=== PATIENT | female | born 1990 | race Caucasian/White ===

== ENCOUNTER 2017-04-22 16:36 | Emergency (ER) | payer MEDICAID, SELFPAY ==
[2017-04-22 16:38] VITALS: BP 120/74; PULSE 79; RESP 16; TEMP 36.6; O2SAT 99; BMI 23.5
--- NOTE | 2017-04-22 16:56 | EKG12_ITS ---
Test Reason : CP Blood Pressure : / mmHG Vent. Rate : 064 BPM Atrial Rate : 064 BPM P-R Int : 114 ms QRS Dur : 088 ms QT Int : 392 ms P-R-T Axes : 057 084 065 degrees QTc Int : 404 ms Normal sinus rhythm Normal ECG Confirmed by DISHA GRANT ([id number]), web editor BAM LARA ([id number]) on 04/25/2017 1:17:32 PM Referred By: TAMMY Confirmed By:DISHA GRANT
--- NOTE | 2017-04-22 16:59 | ED.VISSUMM ---
- ER Visit Summary Date of Service: 04/22/17 Chief Complaint: Stress attack History of Present Illness: The patient is a 26 F reports onset of pounding heart, labored breathing, lightheadedness, and tingling around her lips approximately 20 minutes after being in a stressful situation. Patient does not want to further elaborate on this. She also is complaining of cloudy vision. She did drive herself to the emergency room. She reports that she had a couple panic attacks in the past but never required evaluation or medication. She is a past history of Crohn's disease. She does not currently have a primary care physician. Physical Examination: Blood pressure is 120/74, temperature 98, heart rate 79, respiratory rate 16, pulse ox 99% on room air. Head and neck examination is unremarkable. Heart is regular rate and rhythm. Lung sounds are clear. Abdomen is soft and nontender. Neuro exam reveals normal strength and sensation. She is somewhat anxious. Test Results: EKG reveals sinus rhythm at 64 bpm. Normal intervals and no acute ischemia is noted. Emergency Department Course and Treatment: Patient was given Ativan 0.5 mg p.o. She was observed on clinical research monitor with no arrhythmias noted. On repeat evaluation she is resting comfortably and symptoms are improved. She be given a prescription for 4 tabs of Ativan only. She is referred to the counseling center for follow-up. Treatment Plan: [] Disposition: Discharge Impression: Panic attack This note was generated with Lavaboom dictation software. It may contain incorrect words, spelling, and punctuation that were not noted in review of the chart prior to signing ED Disposition - Plan for ED Patient: Chief Complaint: Anxiety Referrals: Care Physician,No Primary [Primary Care Provider] -
--- NOTE | 2017-04-22 17:01 | NURSING ---
NO OLD EKGS
[2017-04-22] MEDS: LORazepam 0.5 MG Tablet PO (17:04)
--- NOTE | 2017-04-22 18:38 | ED.DEP ---
ED Disposition - Plan for ED Patient: Disposition: Home or Assisted Living Chief Complaint: Anxiety Instructions: ED Panic Attack Prescriptions: Lorazepam [Ativan] 0.5 mg PO BID PRN #4 tablet PRN Reason: Anxiety Referrals: Counseling,Center [GROUP OF PHYSICIANS] - As Needed
[2017-04-22 18:43] VITALS: BP 105/70; PULSE 73; RESP 16; O2SAT 98
== END 2017-04-22 18:54 | disposition home or self-care (01) ==
PROVIDERS: Emergency Provider Emergency Medicine
DX: F41.0 Panic disorder [episodic paroxysmal anxiety] (principal); R42 Dizziness and giddiness; K50.90 Crohn's disease, unspecified, without complications; Z72.0 Tobacco use; Z79.899 Other long term (current) drug therapy
CPT/HCPCS: 93005; 99282

== ENCOUNTER 2017-04-24 14:55 | Outpatient (REF) | payer SELFPAY ==
[2017-04-24 17:03] LABS: Pregnancy, Serum, hCG Quali. NEGATIVE Negative (0-9 Nonpreg)
[2017-04-24 17:45] LABS: HIV - WCH Non-Reactive (Nonreactive)
== END 2017-04-24 18:00 | disposition home or self-care (01) ==
LOC: EDREF 14:55
DX: Z04.41 Encounter for examination and observation following alleged adult rape (principal)
CPT/HCPCS: 84703; 86703

== ENCOUNTER 2017-08-30 02:23 | Emergency (ER) | payer SELFPAY ==
[2017-08-30 02:25] VITALS: BP 126/84; PULSE 74; RESP 14; TEMP 36.7; O2SAT 100; BMI 23.8
--- NOTE | 2017-08-30 02:45 | EKG12_ITS ---
Test Reason : CP Blood Pressure : / mmHG Vent. Rate : 073 BPM Atrial Rate : 073 BPM P-R Int : 126 ms QRS Dur : 076 ms QT Int : 392 ms P-R-T Axes : 040 074 048 degrees QTc Int : 431 ms Normal sinus rhythm with sinus arrhythmia Normal ECG Confirmed by RICKY LOPEZ, BEATRIZ ([id number]), film editor BAM LARA ([id number]) on 08/31/2017 2:33:40 PM Referred By: TOMMY Confirmed By:BEATRIZ GARCÍA MD
[2017-08-30 02:52] LABS: Mucous, Urine 0 SEEN /hpf (<or=2+); Red Blood Cells-Urine 0 SEEN /hpf (0-5)
--- NOTE | 2017-08-30 02:54 | ED.DCSUM_ITS ---
- ER Visit Summary Date of Service: 08/30/17 Chief Complaint: Chest and abdominal pain History of Present Illness: The patient is a 27 F who is currently 8 weeks . She also has a history of Crohn's disease. Patient developed chest and abdominal pain after getting off work at 11 PM last night. Family states that she waited for over an hour for a cab to arrive and they never showed, increasing her anxiety. She has not had nausea, vomiting, or diarrhea. She points to the midsternal area of her chest as well as to the epigastric area and describing her areas of pain. Patient is currently 8 weeks . She had positive test and an ultrasound showing intrauterine in a center. She has not yet seen an BOOKKEEPING SERVICE SALES AGENT. She had one prior that was complicated by preeclampsia late in the course. Patient was life flighted and had an emergency at 31 weeks. Physical Examination: Blood pressure is 126/84, temperature 98.0, heart rate 74 , respiratory rate 14, pulse ox 100% on room air. Patient sitting upright in bed. She has her eyes squinted shut tight. Heart is regular rate and rhythm. Lung sounds are clear. Abdomen is soft with tenderness in both epigastric area as well as left lower quadrant. Hypoactive bowel sounds are noted. Neuro exam reveals no focal deficits. Test Results: EKG is sinus at 73 with no sign of acute ischemia. CBC was a white count 11.4 with normal differential. Chemistry studies normal. LFTs and lipase normal. Urinalysis normal. Emergency Department Course and Treatment: Patient was given a dose of morphine , Zofran, Pepcid, and IV fluids. On repeat evaluation she is resting comfortably. Vital signs have remained stable throughout. I did not perform a chest x-ray to avoid the radiation during . Lung sounds are equal bilaterally and her oxygen saturation is normal. I did discuss with the patient I think the majority of her symptoms are secondary to her anxiety. She had been on Ativan in the past but is not on it currently. I recommended follow-up with the counseling center to help with her anxiety throughout the . Treatment Plan: [] Disposition: Discharge Impression: 1. Atypical chest pain 2. Anxiety This note was generated with DossierViewation software. It may contain incorrect words, spelling, and punctuation that were not noted in review of the chart prior to signing ED Disposition - Plan for ED Patient: Chief Complaint: Chest Pain Referrals: DANYEL Tatum [PHYSICIAN AIRWAY TRAFFIC CONTROLLER] -
[2017-08-30 02:55] LABS: Absolute Lymphocyte Count 3.21 X10^3/ul (0.83-4.51); Absolute Neutrophil Count 7.2 X10^3/uL (2.0-7.7); Basophil# 0.03 X10^3/uL; Basophil% 0.3 % (0-1); Color, Urine Yellow (Yellow); Eosinophil# 0.18 X10^3/uL; Eosinophils% 1.6 % (0-5); Glucose, Dipstick Normal (Normal); Hematocrit 39.9 % (37-47); Hemoglobin 14.1 g/dl (12.0-15.0); Ketone-Dipstick Negative (Negative); Leukocyte Esterase-Dipstick Negative /ul (Negative); Lymphocyte # 3.21 X10^3/ul (4.0); Lymphocyte % 28.3 % (19-41); Mean Corp Hgb Conc 35.3 g/gl (32-36); Mean Corpuscular Hgb 30.2 pg (27.0-32.0); Mean Corpuscular Volume 85.4 fL (81-99); Mean Platelet Vol. 9.2 fl (6.2-12.0); Monocyte# 0.71 X10^3/uL; Monocyte% 6.3 % (0-10); Neutrophil # 7.18 X10^3/uL (2.7-7.7); Neutrophil % 63.1 % (47-70); Nitrite-Dipstick Negative (Negative); Occult Blood-Urine Negative /ul (Negative); Platelet Count 271 K/mm3 (150-450); Protein-Dipstick Negative (Negative); RBC Distribution Width CV 13.2 % (11.6-14.6); RBC Distribution Width SD 40.9 fl (35.1-43.9); Red Blood Count 4.67 M/mm3 (4.2-5.4); Urine Bilirubin Dipstick Negative (Negative); Urine Clarity Sl. Cloudy (Clear); Urine Urobilinogen Normal (Normal); White Blood Count 11.4 K/mm3 (4.4-11.0)
[2017-08-30] MEDS: 0.9% Normal Saline 1,000 ML 150 ML IV (02:55)
[2017-08-30] MEDS: Ondansetron 4 MG/2 ML Vial IV (02:55)
[2017-08-30] MEDS: Morphine 4 MG/ML Syringe IV (02:55)
[2017-08-30 02:59] LABS: POSITIVE COUNT NO; POSITIVE DIFFERENTIAL NO; POSITIVE MORPHOLOGY NO
[2017-08-30] MEDS: Famotidine 20mg IV Push Syringe Q24 300 MG IVP (02:59)
[2017-08-30 03:08] LABS: Bacteria RARE /hpf (None Seen); Squamous Epithelial Cells - UA 0-5 SEEN /hpf (5-10); White Blood Cells 0-5 SEEN /hpf (0-5)
[2017-08-30 03:09] LABS: AST(SGOT) 22 U/L (15-37); Alanine Aminotransfer ALT/SGPT 23 U/L (13-56); Albumin, Serum 3.6 g/dL (3.2-5.0); Alkaline Phosphatase 43 U/L (45-117); Anion Gap 9 (5-15); BUN 10 mg/dL (7-18); BUN/Creat Ratio 16.6 RATIO (10-20); Bilirubin, Direct 0.07 mg/dL (0.00-0.30); Calcium,Total 9.1 mg/dL (8.5-10.1); Chloride 108 mmol/L (98-107); EST Glomerular Filtration Rate 128 mL/min (>60); Est Glom Filt Rate - Afr Amer 154 mL/min (>60); Estimated Creatinine Clearance 102.06 ml/min; Globulin 3.5 g/dL (2.2-4.2); Glucose 75 mg/dL (74-106); Lipase 121 U/L (73-393); Potassium 3.6 mmol/L (3.5-5.1); Protein, Total 7.1 g/dL (6.4-8.2); Sodium Level 141 mmol/L (136-145)
--- NOTE | 2017-08-30 03:42 | ED.DEP ---
ED Disposition - Plan for ED Patient: Disposition: Home or Assisted Living Chief Complaint: Chest Pain Instructions: ED Chest Pain Atypical Unkn Cause, ED Stress React Referrals: Nitza Rader MD [STAFF PHYSICIAN] - Adele Mitchell MD [STAFF PHYSICIAN] - Brittany Bhardwaj MD [STAFF PHYSICIAN] -
[2017-08-30 03:44] VITALS: BP 105/65; PULSE 62; RESP 17; O2SAT 95
== END 2017-08-30 03:50 | disposition home or self-care (01) ==
PROVIDERS: Emergency Provider Emergency Medicine
DX: O26.891 Other specified pregnancy related conditions, first trimester (principal); R07.89 Other chest pain; O99.341 Other mental disorders complicating pregnancy, first trimester; F41.9 Anxiety disorder, unspecified; O99.331 Smoking (tobacco) complicating pregnancy, first trimester; O99.611 Diseases of the digestive system complicating pregnancy, first trimester; K50.90 Crohn's disease, unspecified, without complications; Z79.899 Other long term (current) drug therapy; Z3A.08 8 weeks gestation of pregnancy
CPT/HCPCS: 80048; 80076; 81001; 83690; 85025; 93005; 96365; 96375; 99284; J7030; A4216; J2405; J3490

== ENCOUNTER 2017-09-20 20:23 | Emergency (ER) | payer MEDICAID, SELFPAY ==
[2017-09-20 20:25] VITALS: BP 112/65; PULSE 99; RESP 18; TEMP 37.2; O2SAT 97; BMI 21.4
[2017-09-20] MEDS: Acetaminophen 325 MG Tablet 650 MG PO (21:01)
[2017-09-20] MEDS: 0.9% Normal Saline 1,000 ML 150 ML IV (21:01)
[2017-09-20] MEDS: Morphine 2 MG/ML Syringe IV (21:02)
[2017-09-20] MEDS: Ondansetron 4 MG/2 ML Vial IV (21:07)
[2017-09-20 21:08] LABS: Absolute Lymphocyte Count 3.03 X10^3/ul (0.83-4.51); Absolute Neutrophil Count 7.5 X10^3/uL (2.0-7.7); Basophil# 0.01 X10^3/uL; Basophil% 0.1 % (0-1); Eosinophil# 0.11 X10^3/uL; Hematocrit 37.6 % (37-47); Hemoglobin 13.1 g/dl (12.0-15.0); Lymphocyte # 3.03 X10^3/ul (4.0); Lymphocyte % 27.2 % (19-41); Mean Corp Hgb Conc 34.8 g/gl (32-36); Mean Corpuscular Hgb 29.3 pg (27.0-32.0); Mean Corpuscular Volume 84.1 fL (81-99); Mean Platelet Vol. 9.1 fl (6.2-12.0); Monocyte# 0.46 X10^3/uL; Monocyte% 4.1 % (0-10); Neutrophil # 7.51 X10^3/uL (2.7-7.7); Neutrophil % 67.3 % (47-70); Platelet Count 218 K/mm3 (150-450); RBC Distribution Width SD 39.9 fl (35.1-43.9); Red Blood Count 4.47 M/mm3 (4.2-5.4); White Blood Count 11.2 K/mm3 (4.4-11.0)
[2017-09-20 21:10] LABS: POSITIVE COUNT NO; POSITIVE DIFFERENTIAL NO; POSITIVE MORPHOLOGY NO
[2017-09-20 21:11] LABS: Mucous, Urine 0 SEEN /hpf (<or=2+)
[2017-09-20 21:24] LABS: AST(SGOT) 23 U/L (15-37); Alanine Aminotransfer ALT/SGPT 24 U/L (13-56); Albumin, Serum 3.5 g/dL (3.2-5.0); Alkaline Phosphatase 41 U/L (45-117); Anion Gap 8 (5-15); BUN 7 mg/dL (7-18); BUN/Creat Ratio 11.7 RATIO (10-20); Bilirubin, Direct 0.07 mg/dL (0.00-0.30); Calcium,Total 8.8 mg/dL (8.5-10.1); Chloride 106 mmol/L (98-107); EST Glomerular Filtration Rate 129 mL/min (>60); Est Glom Filt Rate - Afr Amer 156 mL/min (>60); Estimated Creatinine Clearance 102.06 ml/min; Globulin 3.4 g/dL (2.2-4.2); Glucose 84 mg/dL (74-106); Lipase 113 U/L (73-393); Potassium 3.9 mmol/L (3.5-5.1); Protein, Total 6.9 g/dL (6.4-8.2); Sodium Level 137 mmol/L (136-145)
[2017-09-20 21:26] LABS: Color, Urine Yellow (Yellow); Glucose, Dipstick Normal (Normal); Ketone-Dipstick Negative (Negative); Leukocyte Esterase-Dipstick 100 /ul (Negative); Nitrite-Dipstick Negative (Negative); Occult Blood-Urine 25 /ul (Negative); Protein-Dipstick Negative (Negative); Specific Gravity, Urine 1.015 (1.002-1.030); Urine Bilirubin Dipstick Negative (Negative); Urine Clarity Clear (Clear); Urine Urobilinogen Normal (Normal); Urine pH 6.5 (5.0 - 8.0)
[2017-09-20 21:29] LABS: Red Blood Cells-Urine 0-5 SEEN /hpf (0-5); Squamous Epithelial Cells - UA 5-10 SEEN /hpf (5-10); White Blood Cells 5-10 SEEN /hpf (0-5)
[2017-09-20 21:30] LABS: Bacteria 3+ /hpf (None Seen)
--- NOTE | 2017-09-20 21:37 | CT_ITS ---
STUDY: CT BRAIN WITH AND WITHOUT CONTRAST REASON FOR EXAM: Female, 27 years old. . Headache. RADIATION DOSAGE (If Supplied By Facility): CTDIvol = ( 60.81 ) mGy, DLP = ( 1997.33 ) mGycm TECHNIQUE: Transaxial CT imaging of the brain was performed pre and post contrast administration. The examination was performed with intravenous administration of 75 ml of Isovue 300 contrast material. Individualized dose optimization techniques were used for this CT. COMPARISON: None. FINDINGS: Normal soft tissue structures. Normal calvarium. Normal size ventricles and extra-axial spaces for the patient's age. Normal white matter tracts of the cerebral hemispheres. Normal basal ganglia and thalami. Normal brainstem. Normal cerebellum. There is no intracranial hemorrhage. There are no findings of an acute ischemic infarction. Normal visualized paranasal sinuses There is no mass or abnormal enhancement. There is 0.4 x 0.3 cm diminished enhancement region in the left transverse sinus with possible nonocclusive thrombus, series [address]/Brain/Head W/WO Contrast IMPRESSION: Dural venous sinus thrombosis is suggested on the left. No hemorrhage or focal infarct is seen. N.B. : The above information has been verbally conveyed by Massimo Sutton MD to Henrietta Samayoa on 09/20/2017 22:26:35 (ET). Electronically Signed: Massimo Sutton MD at 22:23 EDT , Service support ,
[2017-09-20] MEDS: Ceftriaxone 1 GM/50 ML BAG IV (22:06)
[2017-09-20] MEDS: Morphine 4 MG/ML Syringe IV (22:08)
--- NOTE | 2017-09-20 23:17 | ED.VISSUMM ---
- ER Visit Summary Date of Service: 09/20/17 Chief Complaint: Headache, dizzy, abdominal pain History of Present Illness: The patient is a 27 F who is currently 9-10 weeks . She complains of nausea and vomiting. She does complain of left frontal headache and states she had some vision changes earlier today that are now resolved. She is also complaining of left-sided abdominal pain and left back pain. She denies dysuria. She denies fever. Past history significant for headaches, Crohn's disease, and preeclampsia with her previous . Her WORKPLACE TRAINER AND ASSESSOR is with in [place]. Physical Examination: Vital signs are unremarkable. Patient's lying in a darkened room. She is in no acute distress. Head and neck examination is unremarkable. There is no meningismus. Heart is regular rate and rhythm. Lung sounds are clear. Abdomen is soft with tenderness in the left abdomen. No guarding or rebound noted. Hypoactive bowel sounds are present. She has mild left CVA tenderness. No skin rash or lesions are noted. Neuro exam reveals no focal deficits. Test Results: CBC was a white count 11.2 with normal differential. Chemistry studies normal. LFTs and lipase are normal. Urinalysis shows 5-10 white cells and 5-10 epithelial cells, however she does have 3+ bacteria. Urine culture was sent. Emergency Department Course and Treatment: Patient was given morphine, Tylenol, Zofran, and IV fluids. Patient was sent for CT of the head with IV contrast. I received a phone call from the radiologist with concern for possible dural venous thrombosis on the left. He describes a 3-4 mm filling defect. There is no evidence of hemorrhage or infarct. Test results were discussed with Dr. Paredes, on-call for the patient's WORKPLACE TRAINER AND ASSESSOR. He advises that patient needs to be in a facility with neurology as well as maternal- medicine, and he does not have that available at [place]. After speaking with patient she would prefer to stay with and go to their main campus. I spoke with Dr. Reid, WORKPLACE TRAINER AND ASSESSOR, and patient has been accepted in transfer. She will speak with their maternal medicine doctors regarding anticoagulant and call me back if I am to start something here. Treatment Plan: [] Disposition: Transfer Impression: 1. First trimester 2. Dural venous thrombosis This note was generated with Getableation software. It may contain incorrect words, spelling, and punctuation that were not noted in review of the chart prior to signing ED Disposition - Plan for ED Patient: Chief Complaint: General Illness Referrals: Care Physician,No Primary [Primary Care Provider] -
[2017-09-20 23:18] VITALS: BP 98/59; PULSE 77; RESP 18; O2SAT 98
--- NOTE | 2017-09-20 23:20 | ED.DCSUM_ITS ---
- ER Visit Summary Date of Service: 09/20/17 Chief Complaint: Headache, dizzy, abdominal pain History of Present Illness: The patient is a 27 F who is currently 9-10 weeks . She complains of nausea and vomiting. She does complain of left frontal headache and states she had some vision changes earlier today that are now resolved. She is also complaining of left-sided abdominal pain and left back pain. She denies dysuria. She denies fever. Past history significant for headaches, Crohn's disease, and preeclampsia with her previous . Her LAB CLERK is with in [place]. Physical Examination: Vital signs are unremarkable. Patient's lying in a darkened room. She is in no acute distress. Head and neck examination is unremarkable. There is no meningismus. Heart is regular rate and rhythm. Lung sounds are clear. Abdomen is soft with tenderness in the left abdomen. No guarding or rebound noted. Hypoactive bowel sounds are present. She has mild left CVA tenderness. No skin rash or lesions are noted. Neuro exam reveals no focal deficits. Test Results: CBC was a white count 11.2 with normal differential. Chemistry studies normal. LFTs and lipase are normal. Urinalysis shows 5-10 white cells and 5-10 epithelial cells, however she does have 3+ bacteria. Urine culture was sent. Emergency Department Course and Treatment: Patient was given morphine, Tylenol, Zofran, and IV fluids. Patient was sent for CT of the head with IV contrast. I received a phone call from the radiologist with concern for possible dural venous thrombosis on the left. He describes a 3-4 mm filling defect. There is no evidence of hemorrhage or infarct. Test results were discussed with Dr. Paredes, on-call for the patient's LAB CLERK. He advises that patient needs to be in a facility with neurology as well as maternal- medicine, and he does not have that available at [place]. After speaking with patient she would prefer to stay with and go to their main campus. I spoke with Dr. Reid, LAB CLERK, and patient has been accepted in transfer. She will speak with their maternal medicine doctors regarding anticoagulant and call me back if I am to start something here. Treatment Plan: [] Disposition: Transfer Impression: 1. First trimester 2. Dural venous thrombosis This note was generated with Billabong Internationalation software. It may contain incorrect words, spelling, and punctuation that were not noted in review of the chart prior to signing ED Disposition - Plan for ED Patient: Chief Complaint: General Illness Referrals: Care Physician,No Primary [Primary Care Provider] -
[2017-09-21 00:03] VITALS: PULSE 66; RESP 19; O2SAT 96
--- NOTE | 2017-09-21 00:26 | ED.RN ---
dr zamarripa aware of bp 82/51, pt asymptomatic.iv fluid opened w/o.
[2017-09-21 00:53] VITALS: BP 100/60; PULSE 76; RESP 20; TEMP 36.7; O2SAT 98
== END 2017-09-21 00:57 | disposition short-term general hospital (02) ==
PROVIDERS: Emergency Provider Emergency Medicine
DX: O22.5 Cerebral venous thrombosis in pregnancy (principal); Z3A.09 9 weeks gestation of pregnancy; O99.611 Diseases of the digestive system complicating pregnancy, first trimester; Z79.899 Other long term (current) drug therapy
CPT/HCPCS: 70470; 80048; 80076; 81001; 83690; 85025; 96361; 96365; 96375; 96376; 99285; J7030; J7040; Q9967; A4216; J2405

== ENCOUNTER 2017-09-29 04:09 | Emergency (ER) | payer MEDICAID, SELFPAY ==
[2017-09-29 04:11] VITALS: BP 106/63; PULSE 80; RESP 18; TEMP 36.7; O2SAT 95; BMI 24.6
--- NOTE | 2017-09-29 04:40 | US_ITS ---
STUDY: FIRST TRIMESTER OBSTETRICAL ULTRASOUND REASON FOR EXAM: Female, 27 years old. Bleeding. LMP: July 27, 2017. TECHNIQUE: Transabdominal and Transvaginal PRIOR ULTRASOUND: None. FINDINGS: There is visualization of a single gestational sac in a normal intrauterine position. There is no demonstrated yolk sac. There is visualization of the placenta. And lies along the anterior wall of the uterus. There is visualization of a live embryo. The crown-rump length (CRL) measures 6.7 cm, indicating an estimated gestational age (EGA) of 13 weeks, 0 days. There is demonstrated cardiac activity with a heart rate of 144 bpm. The estimated gestation age (EGA) by LMP is 13 weeks, 1 days. The estimated date of delivery (LUCILA) by LMP is April 05, 2017. The estimated gestation age (EGA) by US is 13 weeks, 0 days. The estimated date of delivery (LUCILA) by US is April 06, 2017. The uterus measures 12.1 cm x 8.8 cm x 7.5 cm. There is no demonstrated uterine fibroid. The cervix is closed. The right ovary is not visualized. The left ovary measures 2.9 cm x 2.3 cm x 1.2 cm. There is no left ovarian cyst. There is no visualized left adnexal mass or complex lesion. There is no fluid in the cul de sac. US/Transvaginal w/Preg US IMPRESSION: Single live intrauterine gestation with mean gestational age of 13 weeks. Electronically Signed: Tone Serrano MD at 8:37 EDT Tel [phone], Service support ,
--- NOTE | 2017-09-29 04:43 | ED.RN ---
waiting for ultrasound to come in am.pt and aware,they will try to sleep while waiting.
--- NOTE | 2017-09-29 04:49 | ED.VISSUMM ---
- ER Visit Summary Date of Service: 09/29/17 Chief Complaint: [] Vaginal bleeding in first trimester History of Present Illness: The patient is a 27 F [] patient stated she started having some vaginal bleeding 2 hours ago. She noticed some clots. Similar to her menses. She is 12 weeks . Her last ultrasound was normal week ago. Her blood type is a positive. This is her second . She has never had anything like this before. She does have history of Crohn's disease. She denies any abdominal pain Physical Examination: [] Vital signs reviewed General: Well-nourished well-developed Head: Normocephalic atraumatic Eyes: Pupils equal round and reactive to light extraocular movements intact ENT: TMs clear no hemotympanum no trauma Neck: Nontender full range of motion Cardiovascular: Regular rate rhythm no murmurs normal S1-S2 Respiratory: No distress clear to auscultation bilaterally chest nontender Abdomen: Soft nontender nondistended normal bowel sounds no masses Pelvic: Positive mild bleeding from the office that is closed. Very small clots. No tissue Back: Nontender no CVA tenderness Extremities: Nontender active range of motion ?4 extremities no trauma Skin: Normal color no trauma Neuro alert oriented cranial nerves II through XII intact normal strength sensation reflexes Test Results: [] Emergency Department Course and Treatment: [] Remained stable. It appears she is having a threatened . We will do an ultrasound. This will be signed out to the morning physician. At this time I do not feel she needs lab work. She will follow-up with her METHODS STUDY ANALYST Treatment Plan: [] Disposition: [] Impression: [] Vaginal bleeding in This note was generated with [employer] software. It may contain incorrect words, spelling, and punctuation that were not noted in review of the chart prior to signing <Scott Ham - Last Filed: 09/29/17 04:49> - ER Visit Summary Date of Service: 09/29/17 Chief Complaint: [] History of Present Illness: The patient is a 27 F [] Physical Examination: [] Test Results: [] Emergency Department Course and Treatment: [] Treatment Plan: [] Disposition: [] Impression: [] This note was generated with [employer] software. It may contain incorrect words, spelling, and punctuation that were not noted in review of the chart prior to signing This is Dr. Carroll dictating an addendum I was asked to see the patient by Dr ham to review her ultrasound report,, the ultrasound report shows a single live IUP 13 weeks please see that report, for further details, explained to the patient concept of threatened AB vaginal bleeding etc. need for her to follow with her communication electronic technician in the next few days return for change in symptoms and she agrees Final diagnosis vaginal bleeding 13 weeks, threatened AB <Myra Carroll - Last Filed: 09/29/17 09:00> ED Disposition <Scott Ham - Last Filed: 09/29/17 04:49> <Myra Carroll - Last Filed: 09/29/17 09:00> - Plan for ED Patient: Chief Complaint: Vag Bld, Preg Referrals: Care Physician,No Primary [Primary Care Provider] -
[2017-09-29 06:44] VITALS: RESP 16
[2017-09-29 08:00] VITALS: RESP 14
--- NOTE | 2017-09-29 09:00 | ED.DEP ---
ED Disposition - Plan for ED Patient: Chief Complaint: Vag Bld, Preg Instructions: ED Miscarriage Poss Referrals: Care Physician,No Primary [Primary Care Provider] - Additional Instructions: Follow-up with her food product inspector next few days return for change in symptoms no sex or heavy exertional activity
--- NOTE | 2017-09-29 09:27 | DCINST.ED_ITS ---
ED Disposition - Plan for ED Patient: Chief Complaint: Vag Bld, Preg Instructions: ED Miscarriage Poss Referrals: Care Physician,No Primary [Primary Care Provider] - Additional Instructions: Follow-up with her insurance claims supervisor next few days return for change in symptoms no sex or heavy exertional activity
== END 2017-09-29 09:45 | disposition home or self-care (01) ==
LOC: ED 04:54
PROVIDERS: Emergency Provider Emergency Medicine
DX: O20.0 Threatened abortion (principal); O99.611 Diseases of the digestive system complicating pregnancy, first trimester; K50.90 Crohn's disease, unspecified, without complications; O99.331 Smoking (tobacco) complicating pregnancy, first trimester; Z79.899 Other long term (current) drug therapy; Z3A.12 12 weeks gestation of pregnancy
CPT/HCPCS: 76817; 99282

== ENCOUNTER → 2018-01-03 07:44 | Outpatient (CLI) | payer MEDICAID, SELFPAY ==
[2018-01-03 10:15] LABS: Glucose Challenge Gest 1H 50g 125 mg/dL (70-140)
== END ==
DX: O09.899 Supervision of other high risk pregnancies, unspecified trimester (principal); Z3A.23 23 weeks gestation of pregnancy
CPT/HCPCS: 36415; 82950

== ENCOUNTER 2018-01-15 14:10 | Outpatient (CLI) | payer MEDICAID, SELFPAY ==
[2018-01-15 14:59] VITALS: BMI 28.5
[2018-01-15 15:26] LABS: Color, Urine Yellow (Yellow); Glucose, Dipstick Normal (Normal); Ketone-Dipstick Negative (Negative); Leukocyte Esterase-Dipstick 500 /ul (Negative); Nitrite-Dipstick Negative (Negative); Occult Blood-Urine 50 /ul (Negative); Protein-Dipstick Negative (Negative); Specific Gravity, Urine 1.005 (1.002-1.030); Urine Bilirubin Dipstick Negative (Negative); Urine Clarity Sl. Cloudy (Clear); Urine Urobilinogen Normal (Normal)
[2018-01-15 15:49] LABS: Fetal Fibronectin Negative
--- NOTE | 2018-01-26 07:49 | OB.TRI.HP_ITS ---
History of Present Illness Date of Service: 01/15/18 Was patient seen by the physician?: No Reason For Visit: CRAMPING Date of Service: 01/15/18 Final LUCILA: 04/05/18 Gestational age: 28 Weeks and 4 Days History of Present Illness: 28+ week intrauterine with some left lower quadrant pain and cramping. Started a few hours ago. care otherwise been uneventful. Allergies No Known Allergies Allergy (Verified 09/29/17 04:14) Laboratory Studies: Laboratory Tests 01/15/18 01/15/18 Range/Units 15:15 15:00 Urine Color Yellow (Yellow) Urine Clarity Sl. Cloudy (Clear) Urine pH 7.0 (5.0 - 8.0) Ur Specific [place] 1.005 (1.002-1.030) Urine Protein Negative (Negative) mg/dl Urine Glucose (UA) Normal (Normal) mg/dl Urine Ketones Negative (Negative) mg/dl Urine Occult Blood 50 H (Negative) /ul Urine Nitrite Negative (Negative) Urine Bilirubin Negative (Negative) mg/dL Urine Urobilinogen Normal (Normal) mg/dl Ur Leukocyte Esterase 500 H (Negative) /ul Fibronectin Negative NST - FHR Rate Baby A NST Reactive:: Yes FHR Category:: Category I Impression/Plan 28+ week intrauterine with transient contractions and likely left round ligament pain. Urine analysis was negative. fibronectin was negative. Released to home with Tylenol and follow-up if discomfort worsens. Nonstress test was reactive.
== END 2018-01-15 16:15 | disposition home or self-care (01) ==
LOC: WPOUT 14:37 → WP 14:38
PROVIDERS: Referring Provider Obstetrics & Gynecology; Visit Provider Obstetrics & Gynecology
DX: O26.893 Other specified pregnancy related conditions, third trimester (principal); R10.30 Lower abdominal pain, unspecified; Z3A.28 28 weeks gestation of pregnancy
CPT/HCPCS: 59025; 59050; 81002; 82731; 87086; 87088; 99218; G0378

== ENCOUNTER → 2018-01-27 11:29 | Outpatient (CLI) | payer MEDICAID, SELFPAY ==
[2018-01-15 14:59] VITALS: BMI 28.5
[2018-01-27 12:01] LABS: Absolute Lymphocyte Count 1.94 X10^3/ul (0.83-4.51); Basophil# 0.01 X10^3/uL; Basophil% 0.1 % (0-1); Eosinophil# 0.09 X10^3/uL; Eosinophils% 0.9 % (0-5); Hematocrit 33.4 % (37-47); Hemoglobin 11.4 g/dl (12.0-15.0); Lymphocyte # 1.94 X10^3/ul (4.0); Lymphocyte % 20.4 % (19-41); Mean Corp Hgb Conc 34.1 g/gl (32-36); Mean Corpuscular Hgb 30.1 pg (27.0-32.0); Mean Corpuscular Volume 88.1 fL (81-99); Mean Platelet Vol. 8.6 fl (6.2-12.0); Monocyte# 0.41 X10^3/uL; Monocyte% 4.3 % (0-10); Neutrophil # 7.02 X10^3/uL (2.7-7.7); Neutrophil % 73.8 % (47-70); Platelet Count 233 K/mm3 (150-450); RBC Distribution Width CV 13.5 % (11.6-14.6); Red Blood Count 3.79 M/mm3 (4.2-5.4); White Blood Count 9.5 K/mm3 (4.4-11.0)
[2018-01-27 12:02] LABS: Differential Indicated SCAN CRITERIA MET; POSITIVE COUNT NO; POSITIVE DIFFERENTIAL NO; POSITIVE MORPHOLOGY YES
[2018-01-27 12:20] LABS: Atypical Lymphocyte 1+ %
--- OUTSIDE RECORDS SUMMARY | 2018-03-23 19:54 | XMS RPT_ITS ---
:1990 Author Organization OHIP Support Name Relationship Address Phone KELBY GUY Unavailable [address] [place] [address] UE Unavailable Unavailable Unavailable ALEXOli KELBY Unavailable [address] + [address] [place] [address] UE Unavailable Unavailable Unavailable MALENA COLBYJOJO Unavailable [address] + [address] [place] [address] UE Unavailable Unavailable Unavailable AARON, VIOLETTE Unavailable Unavailable + AARON, VIOLETTE Unavailable Unavailable + AARON, VIOLETTE Unavailable Unavailable + AARON, VIOLETTE Unavailable Unavailable + KELBY GUY Unavailable [address] + [place] [address] UE Unavailable Unavailable Unavailable AARON, VIOLETTE Unavailable Unavailable + AARON, VIOLETTE Unavailable Unavailable + KELBY GUY Unavailable [address] + [place] [address] UE Unavailable Unavailable Unavailable MARY Unavailable [address] + [address] [place] [address] KELBY GUY Unavailable [address] + [place] [address] KELBY GUY Unavailable [address] + [place] [address] SPENO Unavailable [address] [phone] [place] [address] MALENA EDWARD Unavailable [address] + [place] [address] SPENO Unavailable [address] [phone] [place] [address] MALENA EDWARD Unavailable [address] + [place] [address] SPENO Unavailable [address] [phone] [place] [address] Care Team Providers Name Role Phone SAM, CLODAGH R Admitting Unavailable SAM, CLODAGH R Referring Unavailable UNKNOWN, PCP Primary Care Unavailable Hadley, Dr. Seymour Doran Attending Unavailable LULY BARFIELD Attending Unavailable UNKNOWN, PCP Primary Care Unavailable Drew, Dr. Elzbieta Dunbar Attending Unavailable Zia, Dr. José Antonio Hale Referring Unavailable UNKNOWN, PCP Primary Care Unavailable UNKNOWN, PCP Primary Care Unavailable UNKNOWN, PCP Primary Care Unavailable UNKNOWN, PCP Primary Care Unavailable Primay Care Physicia, No Primary Care Unavailable Henrietta Samayoa Attending Unavailable SANE Attending Unavailable SANE Primary Care Unavailable Adele Blanco Attending Unavailable SANE Referring Unavailable SANE Primary Care Unavailable Henrietta Samayoa Attending Unavailable Primay Care Physicia, No Primary Care Unavailable Primay Care Physicia, No Primary Care Unavailable Henrietta Samayoa Attending Unavailable Primay Care Physicia, No Primary Care Unavailable Scott Ham Attending Unavailable FLORENCE CASIANO Attending Unavailable Primay Care Physicia, No Primary Care Unavailable FLORENCE CASIANO Referring Unavailable Kendall Nieto Attending Unavailable Kendall Nieto Referring Unavailable Primay Care Physicia, No Primary Care Unavailable FLORENCE CASIANO Attending Unavailable FLORENCE CASIANO Referring Unavailable Primay Care Physicia, No Primary Care Unavailable Oberhauser, Mary Arnoldo Attending Unavailable Oberhauser, Mary L Admitting Unavailable Oberhauser, Mary L Primary Care Unavailable Junior, Adriana Consulting Unavailable Junior, Adriana Attending Unavailable Oberhauser, Mary L Primary Care Unavailable Junior, Adriana Admitting Unavailable Junior, Adriana Attending Unavailable Oberhauser, Mary L Primary Care Unavailable Junior, Adriana Attending Unavailable Oberhauser, Mary L Primary Care Unavailable Junior, Adriana Attending Unavailable Oberhauser, Mary L Primary Care Unavailable Junior, Adriana Admitting Unavailable Junior, Adriana Attending Unavailable Oberhauser, Mary L Primary Care Unavailable Nash, José Antonio A Attending Unavailable Oberhauser, Mary L Primary Care Unavailable Zia, José Antonio A Admitting Unavailable Nash, José Antonio A Attending Unavailable Oberhauser, Mary L Primary Care Unavailable Nash, José Antonio A Attending Unavailable Oberhauser, Mary L Primary Care Unavailable Zia, José Antonio A Attending Unavailable Oberhauser, Mary L Primary Care Unavailable Drew, Elzbieta K Admitting Unavailable Drew, Elzbieta K Attending Unavailable Oberhauser, Mary L Primary Care Unavailable Nash, José Antonio A Admitting Unavailable Nash, José Antonio A Attending Unavailable Oberhauser, Mary L Primary Care Unavailable Nash, José Antonio A Attending Unavailable Oberhauser, Mary L Primary Care Unavailable Nash, José Antonio A Admitting Unavailable Zia, José Antonio A Attending Unavailable Oberhauser, Mary L Primary Care Unavailable Nash, José Antonio A Admitting Unavailable Nash, José Antonio A Attending Unavailable Oberhauser, Mary L Primary Care Unavailable Cruzito Paredes Attending Unavailable Oberhauser, Mary L Primary Care Unavailable Nash, José Antonio A Attending Unavailable Oberhauser, Mary L Primary Care Unavailable PROBLEMS PROBLEMS DATE TYPE CONDITION / CODE ATTENDING STATUS SOURCE 10/09/2017 Final diagnosis Crohn's disease, Dr. Drew [facility] (discharge) unspecified, [facility] without Repository complications / K50.90(ICD-10) 10/09/2017 Final diagnosis Personal history of Dr. Drew [facility] [employer] (discharge) dis of the nervous [facility] sys and sense Repository organs / Z86.69(ICD-10) 10/09/2017 Final diagnosis Personal history of Dr. Drew [facility] [employer] (discharge) comp of preg, [facility] chldbrth and the Repository puerp / Z87.59(ICD-10) 10/09/2017 Final diagnosis Diseases of the Dr. Drew [facility] [employer] (discharge) dgstv sys comp [facility] , unsp Repository trimester / O99.619(ICD-10) 10/09/[address] Amy Russell (discharge) dependence, [facility] unspecified, Repository uncomplicated / F17.200(ICD-10) 10/09/2017 Final diagnosis [address] Drew Active Disha (discharge) of / [facility] Z3A.13(ICD-10) Repository 09/22/2017 Admitting Diseases of the [place]ley, Dr. Reyes [facility] diagnosis nervous sys [facility] , first Repository trimester / O99.351(ICD-10) 09/22/2017 Final diagnosis Diseases of the Hadley, Dr. Aym Gauthier (discharge) nervous s [facility] , first Repository trimester / O99.351(ICD-10) 09/22/2017 Final diagnosis Migraine, unsp, not Dr. Amy Butcher (discharge) intractable, [facility] without status Repository migrainosus / G43.909(ICD-10) 09/22/2017 Final diagnosis [address] Hadley Active Disha (discharge) of / [facility] Z3A.12(ICD-10) Repository 09/22/2017 Final diagnosis Smoking (tobacco) Dr. Amy Butcher (discharge) complicating [facility] , first Repository trimester / O99.331(ICD-10) 09/22/[address] Amy Butcher (discharge) dependence, [facility] cigarettes, Repository uncomplicated / F17.210(ICD-10) 09/22/2017 Final diagnosis Diseases of the Dr. Amy Butcher (discharge) circ sys [facility] , first Repository trimester / O99.411(ICD-10) 09/22/2017 Final diagnosis Hypotension, Dr. Amy Butcher (discharge) unspecified / [facility] I95.9(ICD-10) Repository 09/22/2017 Final diagnosis Diseases of the Hadley, Dr. Amy Gauthier (discharge) dgstv sys [facility] , first Repository trimester / O99.611(ICD-10) 04/22/2017 Unknown F41.0 - Panic Henrietta Samayoa Active [place] disorder [episodic Community paroxysmal anxiety] Hospital / F41.0(ICD-10) Repository PROCEDURES PROCEDURES No Procedure Records FoundRESULTS RESULTS CBC W/DIFF, AUTOMATED Collected: 01/27/2018 Status: F Source: [place] 11:[place] [facility] [place] TYPE CODE TESTS RESULT OUT OF RANGE REFERENCE UNITS LAB L100.1000 4.4-11.0 K/mm3 Normal WBC 9.5 LAB L100.1200 4.2-5.4 M/mm3 Low RBC 3.79 LAB L100.1300 12.0-15.0 g/dl Low HGB 11.4 LAB L100.1400 37-47 % Low HCT 33.4 LAB L100.1500 81-99 fL Normal MCV 88.1 LAB L100.1600 27.0-32.0 pg Normal MCH 30.1 LAB L100.1700 32-36 g/gl Normal MCHC 34.1 LAB L100.1810 11.6-14.6 % Normal RDW CV 13.5 LAB L100.1820 35.1-43.9 fl High RDW SD 44.0 LAB L100.1900 150-450 K/mm3 Normal PLT 233 LAB L100.2000 6.2-12.0 fl Normal MPV 8.6 LAB L100.2100 47-70 % High NEUT% 73.8 LAB L100.2200 19-41 % Normal LY% 20.4 LAB L100.2300 0-10 % Normal MONO% 4.3 LAB L100.2400 0-5 % Normal EO% 0.9 LAB L100.2500 0-1 % Normal BASO% 0.1 LAB L100.2550 0.0-0.9 % Normal IM GRAN % 0.500 Result Comment: IG% - Immature Granulocytes (promyelocytes, myelocytes and metamyelocytes) > 1% indicates that a LEFT SHIFT is Present. LAB L100.2620 2.0-7.7 X10 3/uL Normal Absolute Neut 7.0 LAB L100.2720 0.83-4.51 X10 3/ul Normal Absolute Lymph 1.94 LAB L100.4600 % Normal ATYPICAL LYMPH 1+ Performed By: #### L100.0100 #### [facility] [address] [place], [address] FIBRONECTIN Collected: 01/15/2018 Status: F Source: [place] 3:15 [place] [facility] [place] Order Comment: Has pt arrived? Y TYPE CODE TESTS RESULT OUT OF RANGE REFERENCE UNITS LAB L205.0100 Normal fFN Negative Performed By: #### L205.0000 #### [facility] [address] [place], [address] URINALYSIS, ROUTINE Collected: 01/15/2018 Status: F Source: [place] (DIPSTICK) 3:00 PM [facility] [place] Order Comment: How was Urine Obtained? 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 Cloudy LAB L400.3200 Normal mg/dl Normal GLUCOSE, UR Normal LAB L400.3300 Negative mg/dL Normal BILIRUBIN URINE Negative LAB L400.3400 Negative mg/dl Normal KETONE UR Negative LAB L400.3465 1.002-1.030 Normal SP.GR. DIPSTX 1.005 LAB L400.3550 5.0 - 8.0 pH UR Normal 7.0 LAB L400.3600 Negative mg/dl PROT Normal DIPSTX Negative LAB L400.3700 Normal mg/dl Normal UROBILI Normal LAB L400.3750 Negative Normal NITRITE UR Negative LAB L400.3780 Negative /ul High 50 OCCULT BLOOD-UR LAB L400.3800 Negative /ul High LEUK ESTERASE 500 Performed By: #### L400.2011 #### [facility] [address] [place], [address] Observed: 01/15/2018 Status: F Source: [place] CULTURE, URINE 3:00 PM [facility] [place] Has pt arrived? Y Urine Culture There are no CLSI standards for interpretation of this Drug/Organism combination. ORGANISM 1: Lactobacillus species [place] Count >100,000 Performed By: #### M100.0650 #### [facility] [address] [place], [address] GLUCOSE CHALLENGE GEST Collected: 01/03/2018 Status: F Source: [place] 1H 50G 8:56 AM [facility] [place] TYPE CODE TESTS RESULT OUT OF RANGE REFERENCE UNITS LAB L501.0250 70-140 mg/dL Normal GLU GEST 125 50g 1H Performed By: #### L501.0250 #### [facility] [address] [place], [address] GENETICS - Observed: 12/05/2017 Status: UNK Source: [facility] 8:29 PM HOSPITALS REPOSITORY Chief Complaint Patient was seen on 10/09/17 via Telemedicine as a follow-up after a recent inpatient evaluation and stay at [facility]. History of Present Illness Aly is a 27 yo who was 13+5 at time of our outpatient follow-up based on EDC 04/05/18. She had a recent antepartum admission after transfer from [place] with headache and concern for a new diagnosis of left dural venous sinus thrombosis on outside CT scan. She initially presented with a l eft frontal headache that was throbbing in nature, along with whole body soreness and a weakness/heaviness in her limbs. Her headache improved with morphine and darkness, but was again severe several ho urs after morphine administration, pain reported as10/10. She reported blurry vision and dark spots in her vision, but denied any vision loss. She felt like her arms are numb and tingling and had troubl e moving her limbs, but denied any loss of urinary or bowel control. During her [facility] hospital stay, a hypercoagulability work-up was negative, and repeat MRI/MRV ruled OUT the previously suspected venous sinus thrombosis, with Neurology consultation guiding [facility] imaging recommendations and interpretation. Of note, she has a history of a delivery prompted by a severe preeclampsia diagnosis. At this early gestational age, she had not yet started ASA, so that was started during her hospital stay (after also briefly being anticoagulated when initial concern was for the thrombosis). On questioning during her telemedicine visit, she reports that that child was adopted into another family. Krystal se and her partner appear to recall very little from this delivery and the situation surrounding it. Her is also notable for a long-standing diagnosis of Crohn's disease, diagnosed after a 2004 bowel resection via pathology. Initial surgery appears to have been performed in the setting of an acute abdomen. She has previously used Humira with good symptom control, noting 1 flare/year and no fistulas or perianal disease. During her hospital stay, she was seen primarily by the MFM team, and follow-up plan of care for her prior history were outlined and initiated - see end of consult note for reiteration of these recommendations. Today, Aly and her partner had some of the same questions as during her hospital stay. Her headache has resolved, and she has no OB complaints (no LOF, VB, or cramping). She has used Tylenol to control minimal KINNEY symptoms. She is otherwise feeling well with occasional n/v that appears typical of . The remainder of her negative ROS is below, and other relevant history is documented. Review of Systems Constitutional: no fever. Cardiovascular: no chest pain, no lightheadedness, no shortness of breath during exertion and no syncope. Respiratory: no shortness of breath, no dyspnea during exertion, no cough, no wheezing, no orthopnea and no asthma. Gastrointestinal: no abdominal distention, no abdominal pain, nausea, no vomiting, no diarrhea and no constipation. Genitourinary: no dysuria. Neurological: no headaches, migraines, no dizziness and no fainting. Active Problems History of migraine during (V23.89) (Z86.69,Z87.59) Assessed By: Elzbieta Russell (Obstetrics/Gynecology); Last Assessed: 05 Dec 2017 Maternal Crohn's disease affecting (648.90,555.9) (O99.619,K50.90) Assessed By: Elzbieta Russell (Obstetrics/Gynecology); Last Assessed: 05 Dec 2017 Past Medical History History of Crohn's disease (V12.70) (Z87.19) History of migraine (V12.49) (Z86.69) Surgical History History of Section History of Colon Surgery Social History Current some day smoker (305.1) (F17.200) Allergies No Known Allergies Recorded By: Kay Gonzalez; 10/06/2017 8:21:17 AM Current Meds Doxylamine Succinate 25 MG TABS; Take 1 tablet daily; Therapy: (Recorded:06Oct2017) to Recorded Dispense: 0 Days ; #: Sufficient Tablet; Refill: 0; YING = N; Record; Last Updated By: Kay Gonzalez; 10/06/2017 8:38:12 AM Humira Pen 40 MG/0.4ML Subcutaneous Pen-injector Kit; Therapy: (Recorded:62Mii2845) to Recorded Dispense: 0 Days ; #: Sufficient Pen-injector Kit; Refill: 0; YING = N; Record; Last Updated By: Letty Stevens; 10/09/2017 11:05:15 AM One Daily TABS; Therapy: (Recorded:[id number]) to Recorded Dispense: 0 Days ; #: Sufficient TABS; Refill: 0; YING = N; Record; Last Updated By: Kay Gonzalez; 10/06/2017 8:27:25 AM Physical Exam Physical exam not performed as this was a Telemedicine consult Diagnoses/Problems Maternal Crohn's disease affecting (648.90,555.9) (O99.619,K50.90) History of migraine during (V23.89) (Z86.69,Z87.59) Patient Discussion/Summary We saw Ms. Guy for a follow-up outpatient consult to reiterate MFM recommendations outlined during her inpatient stay, includin. History of preeclampsia with severe features, necessitating () with possible placental abruption -addressed recurrence risk -initiated recommended daily baby ASA, shown to decrease recurrence risk -reviewed/assessed 'baseline' preeclampsia labs, all within normal limits -otherwise routine care with repeat preeclampsia evaluation for mild range BPs, preeclampsia symptoms, or other concerns for recurrent diagnosis 2. History of delivery -detailed records surrounding that diagnosis/delivery not available at time of our consult -no specific recommendations regarding chance of TOLAC success addressed at this early GA; patient plans to further discuss with her provider as progresses but is interested in a TOLAC if an appropriate candidate -given history of bowel surgery, TOLAC (if appropriate) may be optimal to avoid subsequent abdominal surgery and increased surgical risk and risk of increased scar tissue 3. Crohn's -stable at this time, with Humira planned for restart, and recommended continuation through as overall reassuring safety profile -if flare suspected, patient would return to her usual Gastroenterology provider, and understands 2nd line agent may be prednisone -MFM happy to weigh in with any new questions/concerns regarding flares in this 4. Other routine counseling -encouraged ongoing smoking cessation, currently down to 1/2 ppd; would consider a third trimester growth ultrasound, given risk of SGA/IUGR with tobacco use in -recommend detailed anatomy ultrasound at 19-20 weeks All questions addressed, and we appreciate the opportunity to participate in her care. Please contact us with any questions or concerns. Elzbieta Russell MD. End of Encounter Meds Doxylamine Succinate 25 MG TABS; Take 1 tablet daily; Therapy: (Recorded:06Oct2017) to Recorded Humira Pen 40 MG/0.4ML Subcutaneous Pen-injector Kit; Therapy: (Recorded:58Whx5606) to Recorded One Daily TABS; Therapy: (Recorded:06Oct2017) to Recorded Signatures Electronically signed by : Elzbieta Russell MD; Dec 05 2017 8:29PM EST (Author) US AFTER 1ST Observed: 11/21/2017 Status: F Source: [place] 9:32 AM [facility] REPOSITORY Exam Date/Time: 11/21/2017 10:12 EDT Reason for Exam: DATES / ANATOMY;Standard Anatomy Report STUDY: US After 1st Trimester 11/21/2017 10:12 am INDICATION: Standard Anatomy. COMPARISON: None. ACCESSION NUMBER(S): [id number] ORDERING CLINICIAN: José Antonio Friedman TECHNIQUE: Routine ultrasound of the pelvis was performed. Evaluation of the female pelvis was performed by transabdominal. FINDINGS: There is a single live intrauterine gestation in variable position. BPD 49mm, 20 weeks, 5 days HC 180mm, 20 weeks, 3 days AC 115mm, 20 weeks, 2 days FL 33mm, 20 weeks, 1 days This results in a composite gestational age of 20 weeks, 3 days, +/-10 days. The estimated date of delivery by ultrasound is 04/07/2018. By dates the fetus should be 20 weeks, 5 days, which is concordant with the ultrasound dating. There is an estimated weight of 342 g +/-51 g (22 percentile). heart rate measures 153 beats per minute. Anatomy: HEART (FOUR-CHAMBER): Seen THREE-VESSEL CORD: Seen UMBILICAL CORD INSERTION: Seen BLADDER: Seen STOMACH: Seen SPINE: Seen KIDNEYS: Seen DIAPHRAGM: Seen LATERAL VENTRICLE: Seen The placenta is in anterior location. No evidence of placenta previa is seen.. The amniotic fluid volume is within normal limits. Exam Date/Time: 11/21/2017 10:12 EDT Report Maternal anatomy: The cervix is closed, measuring up to 4.1 cm in length. IMPRESSION: Single live intrauterine gestation corresponding to 20 weeks, 3 days, +/-10 days. No gross anatomic abnormality was identified. Recommend continued routine follow-up imaging evaluation. FINAL REPORT Dictated: 11/21/2017 11:39 am Catrachito Aguillon MD Signed (Electronic Signature): 11/21/2017 11:39 am Signed by: Catrachito Aguillon MD Technologist: SHANTELLE AFP TETRA PROFILE Collected: 10/31/2017 Status: F Source: [place] 1:32 PM [facility] REPOSITORY TYPE CODE TESTS RESULT OUT OF RANGE REFERENCE UNITS LAB 04406340(L OINC) *Screen Normal AFP Negative* TP Test Results: LAB 16795066(L week(s) OINC) 17.3 Normal AFP TP Gest Age LAB 73969892(L OINC) Normal AFP Ultrasound TP GA Base Result Comment: 17.3 on 10/31/2017 LAB 98444437(LOINC) 26.6 Normal AFP TP Mat Age [place] LAB 02158110(LOINC) Normal AFP TP Race LAB 11826244(LOINC) lb 133 Normal AFP TP Weight LAB 34143984(LOINC) No Normal AFP TP Insulin Dep Diabetes LAB 69928811(LOINC) No Normal AFP TP Mult Gest LAB 28937032(LOINC) ng/mL 43.7 Normal AFP TP AFP Sona EIA LAB 33768177(LOINC) 1.04 Normal AFP TP AFP Mom Value LAB 47803283(LOINC) mIU/mL 16866 Normal AFP TP hCG Value LAB 05768987(LOINC) 0.74 Normal AFP TP hCG Mom LAB 24807623(LOINC) ng/mL 1.69 Normal AFP TP uE3 Value LAB 51962081(LOINC) 1.52 Normal AFP TP uE3 Mom LAB 03119929(LOINC) pg/mL Normal AFP TP NATALIE 368.89 Value EIA LAB 75018202(LOINC) 2.06 Normal AFP TP NATALIE Mom Value LAB 81067089(LOINC) 94369 Normal AFP TP OSBR Risk 1 IN LAB 88291137(LOINC) 1723 Normal AFP TP DSR 2nd Times 1IN LAB 96893421(LOINC) 948 Normal AFP TP DSR(by Age) 1IN LAB 37647411(LOINC) Normal AFP TP T18 1:3695 Risk LAB 43446133(LOINC) Not Normal AFP TP T18 (By increased Age) LAB 26264847(LOINC) Normal AFP TP Interp Comment Result Comment: Interpretation: Screen Negative This result is screen negative for OSB, Down Syndrome and Trisomy 18. The AFP MoM and patient specific risks calculated are based on the gestational age and the clinical information provided. This test can identify up to 80% of open neural tube defects. Closed neural tube defects and some open defects may not be detected by this test. The combination of maternal age, AFP, hCG, uE3, and NATALIE identifies 75-80% of Down Syndrome. The combination of maternal age, AFP, hCG and uE3 identifies 60% of Trisomy 18 pregnancies. The [employer] recommends amniocentesis be offered to women age 35 and older. Recalculations are not recommended when gestational dating by LMP and ultrasound are within 10 days. LAB 93882558(LOINC) AFP TP Normal Comments: Comment Result Comment: Alida Garcia, Ph.D., [facility] [employer] References: Available Upon Request. Multiples Of Median Cutoffs Abbreviation Definitions For AFP Elevations IDD- Insulin Dep Diabetes Richter 2.5 Black 2.8 OSBR- Open Spina Bifida IDD 2.0 Twins 4.5 Risk DSR Cutoff 1:270 DSR- Down Syndrome Risk T18 Cutoff 1:100 T18- Trisomy 18 Down Syndrome and Trisomy 18 screening are considered Investigational For further inquiries contact [employer] at [phone]. Performed At: [facility] [address], [place] [id number] Yohannes Olson MD Ph:[phone] Performed By: #### [id number] #### [facility] [employer] [address] [address] EMERGENCY DEPARTMENT Observed: 09/30/2017 Status: F Source: [place] SUMMARY 8:25 AM [facility] [place] [facility] Medical Records Department [address] [place] [address] Emergency Department Summary 09/29/17 0449 MR#: [id number] Acct: [id number] Name: ALY GUY Rep #: [id number] : 1990 27 From: Scott Ham MD PCP: Care Physician, No Primary Status: DEP ER - ER Visit Summary Date of Service: 09/29/17 Chief Complaint: [] Vaginal bleeding in first trimester History of Present Illness: The patient is a 27 F [] patient stated she started having some vaginal bleeding 2 hours ago. She noticed some clots. Similar to her menses. She is 12 weeks . Her last ultrasound was normal week ago. Her blood type is a positive. This is her second . She has never had anything like this before. She does have history of Crohn's disease. She denies any abdominal pain Physical Examination: [] Vital signs reviewed General: Well-nourished well-developed Head: Normocephalic atraumatic Eyes: Pupils equal round and reactive to light extraocular movements intact ENT: TMs clear no hemotympanum no trauma Neck: Nontender full range of motion Cardiovascular: Regular rate rhythm no murmurs normal S1-S2 Respiratory: No distress clear to auscultation bilaterally chest nontender Abdomen: Soft nontender nondistended normal bowel sounds no masses Pelvic: Positive mild bleeding from the office that is closed. Very small clots. No tissue Back: Nontender no CVA tenderness Extremities: Nontender active range of motion 4 extremities no trauma Skin: Normal color no trauma Neuro alert oriented cranial nerves II through XII intact normal strength sensation reflexes Test Results: [] Emergency Department Course and Treatment: [] Remained stable. It appears she is having a threatened . We will do an ultrasound. This will be signed out to the morning physician. At this time I do not feel she needs lab work. 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 It may contain incorrect words, spelling, and punctuation that were not noted in review of the chart prior to signing <Scott Ham - Last Filed: 09/29/17 04:49> - ER Visit Summary Date of Service: 09/29/17 Chief Complaint: [] History of Present Illness: The patient is a 27 F [] Physical Examination: [] Test Results: [] Emergency Department Course and Treatment: [] Treatment Plan: [] Disposition: [] Impression: [] This note was generated with [employer] Midstream dictation software. It may contain incorrect words, spelling, and punctuation that were not noted in review of the chart prior to signing This is Dr. Carroll dictating an addendum I was asked to see the patient by Dr ham to review her ultrasound report,, the ultrasound report shows a single live IUP 13 weeks please see that report, for further details, explained to the patient concept of threatened AB vaginal bleeding etc. need for her to follow with her pot firer in the next few days return for change in symptoms and she agrees Final diagnosis vaginal bleeding 13 weeks, threatened AB <Myra Carroll - Last Filed: 09/29/17 09:00> ED Disposition <Scott Ham - Last Filed: 09/29/17 04:49> <Myra Carroll - Last Filed: 09/29/17 09:00> - Plan for ED Patient: Chief Complaint: Vag Bld, Preg Referrals: Care Physician,No Primary [Primary Care Provider] - What to do if you have Problems For any increased pain, shortness of breath, bleeding, nausea or vomiting, chest pain, or any unexpected problems, contact your Primary Care Provider. Call [facility] ([phone]) or report to the closest Emergency Room. Call 911 if necessary. 09/30/17 0017 <Electronically signed by Scott Ham MD> Date Scott Ham MD 09/30/17 0825<Electronically signed by Myra Carroll MD> Cosigner Signature (If Indicated): Date Myra Carroll MD CC: No Primary Care Physician DISCHARGE INSTRUCTION Observed: 09/29/2017 Status: F Source: [place] 9[place] [facility] [place] [facility] Medical Records Department [address] [place] [address] Discharge Instruction 09/29/17899 MR#: [id number] Acct: [id number] Name: ALY GUY Rep #: [id number] : 1990 27 From: Myra Carroll MD PCP: Care Physician, No Primary Status: REG ER ED Disposition - Plan for ED Patient: Chief Complaint: Vag Bld, Preg Instructions: ED Miscarriage Poss Referrals: Care Physician,No Primary [Primary Care Provider] - Additional Instructions: Follow-up with her pot firer next few days return for change in symptoms no sex or heavy exertional activity What to do if you have Problems For any increased pain, shortness of breath, bleeding, nausea or vomiting, chest pain, or any unexpected problems, contact your Primary Care Provider. Call [facility] ([phone]) or report to the closest Emergency Room. Call 911 if necessary. 09/29/17926 <Electronically signed by Myra Carroll MD> Date Myra Carroll MD Cosigner Signature (If Indicated): Date CC: No Primary Care Physician TRANSVAGINAL W/PREG US Observed: 09/29/2017 Status: F Source: [place] 4:41 AM [facility] [place] [facility] Imaging Services [address] [place] [address] Transvaginal w/Preg US MR#: [id number] Acct: [id number] Name: ALY GUY Rep #: [id number] : 1990 F 27 From: Tone Serrano MD PCP: Sean Physician, No Primary Status: REG ER Study: Transvaginal w/Preg US Date of Exam: 09/29/17 Exam# [id number] Ordering Dr: Scott Ham MD STUDY: FIRST TRIMESTER OBSTETRICAL ULTRASOUND REASON FOR EXAM: Female, 27 years old. Bleeding. LMP: July 27, 2017. TECHNIQUE: Transabdominal and Transvaginal PRIOR ULTRASOUND: None. FINDINGS: There is visualization of a single gestational sac in a normal intrauterine position. There is no demonstrated yolk sac. There is visualization of the placenta. And lies along the anterior wall of the uterus. There is visualization of a live embryo. The crown-rump length (CRL) measures 6.7 cm, indicating an estimated gestational age (EGA) of 13 weeks, 0 days. There is demonstrated cardiac activity with a heart rate of 144 bpm. The estimated gestation age (EGA) by LMP is 13 weeks, 1 days. The estimated date of delivery (LUCILA) by LMP is April 05, 2017. The estimated gestation age (EGA) by US is 13 weeks, 0 days. The estimated date of delivery (LUCILA) by US is April 06, 2017. The uterus measures 12.1 cm x 8.8 cm x 7.5 cm. There is no demonstrated uterine fibroid. The cervix is closed. The right ovary is not visualized. The left ovary measures 2.9 cm x 2.3 cm x 1.2 cm. There is no left ovarian cyst. There is no visualized left adnexal mass or complex lesion. There is no fluid in the cul de sac. US/Transvaginal w/Preg US IMPRESSION: Single live intrauterine gestation with mean gestational age of 13 weeks. Electronically Signed: Tone Serrano MD at 8:37 EDT Tel [phone], Service support , CC: No Primary Care Physician; Scott Ham MD Executive Administrative Assistant: Signed CLINICAL EVENT Observed: 09/22/2017 Status: UNK Source: [facility]-NEUROLOGY SIGN OFF 11:13 AM HOSPITALS REPOSITORY Event: Topic: Neurology Sign Off Details: MRV reviewed and is not consistent with venous thrombosis. No need for anticoagulation at this time. Neurology will sign off at this time. Page with any questions [phone]. Discussed with attending. Josse Sanchez DO, MHSA PGY-3 Provider / Team Contact Information: Provider/Team Contact Info-Pager Number: [phone] Electronic Signatures: Josse Sanchez ( (Resident)) (Signed 22-Sep-2017 11:17) Authored: Event, Provider / Team Contact Information Last Updated: 22-Sep-2017 11:17 by Josse Sanchez ( (Resident)) GC + CHLAMYDIA BY Collected: 09/22/2017 Status: F Source: [place] AMPLIFIED DETECTION 9:01 AM HOSPITALS REPOSITORY TYPE CODE TESTS RESULT OUT OF REFERENCE UNITS RANGE LAB GCAMP(LOINC NEGATIVE ) NEGATIVE N.GONORRHEA, AMPLIFIED Result Comment: Performance characteristics for Neisseria gonorrhoeae testing on female urine samples has been validated by [facility]. Testing on this sample type is not FDA-approved, but such approval is not necessary. This laboratory is certified by CLIA to perform high complexity testing. LAB CTAMP(LOINC) NEGATIVE CHLAMYDIA TRACH.,AMPLIFIED NEGATIVE Result Comment: Performance characteristics for Chlamydia trachomatis testing on female urine samples has been validated by [facility]. Testing on this sample type is not FDA-approved, but such approval is not necessary. This laboratory is certified by CLIA to perform high complexity testing. LAB SOURCE([facility]) Lab Specimen Source Urine Performed By: #### GCCHA #### [facility] [address] [place] [address] DAILY PROGRESS NOTE - Observed: 09/22/2017 Status: COMPLETED Source: [place] OB-ANTEPARTUM - MFM 8:18 AM HOSPITALS REPOSITORY Current Stage: Stage: Antepartum - MFM Subjective Data: Antepartum: Vaginal Bleeding: No Contractions/Abdominal Pain: No Discharge/Loss of Fluid: No Movement: None Has not felt movement Fevers/Chills: No Preeclampsia Symptoms: No Antepartum: Doing well, states that her headache is improved. Only endorses a mild frontal headache now. Denies n/v, scotoma, dizziness, lightheadedness. Objective Information: Objective Information: ---- Intake and Output ----- Mn/Dy/Year TimeIntakeOutputNet Sep 22, 2017 6:00 [id number] Sep 21, 2017 10:00 [id number] Sep 21, 2017 2:00 [id number] The Intake and Output Totals for the last 24 hours are: IntakeOutputNet [id number] T PRBPSpO2 Value37.8288473/6298% Date/Time09/22 3: 3: 3: 3: 3:45 Range(36.8C - 37.6C ) (68 - 104 ) (16 - 18 ) (95 - 100 )/ (50 - 64 ) (96% - 98% ) Highest temp of 37.6 C was recorded at 09/21 16:15 Physical Exam: Constitutional: NAD, AOx3, laying in bed resting comfortably Obstetric: Abdomen soft, gravid, nontender to palpation Eyes: Sclera anicteric, EOMI ENMT: MMM Head/Neck: NCAT Respiratory/Thorax: Normal respiratory effort Musculoskeletal: ROM intact Extremities: Nontender to palpation in lower extremities bilaterally Neurological: CN grossly intact Psychological: appropriate affect Skin: No rashes or lesions Recent Lab Results: Results: I have reviewed these laboratory results: Profile 21-Sep-2017 14:44:00 ResultValue White Blood Cell Count 9.4 Nucleated Erythrocyte Count 0.0 Red Blood Cell Count 3.94 L HGB 11.4 L HCT 34.6 L MCV 88 MCHC 32.9 PLT 193 RDW-CV 13.1 Syphilis IgG NON REACTIVE Reference Range: NONREACTIVE Patients receiving more than 5 mg/day of biotin may have interference in test results. A sample should be taken no sooner than eight hours after previous dose. Contact [phone] for additional info Hep.B Surface Ag NONREACTIVE Reference Range: NONREACTIVE Patients receiving more than 5 mg/day of biotin may have interference in test results. A sample should be taken no sooner than eight hours after previous dose. Contact [phone] for additional infor HIV Antigen/Antibody Screen 21-Sep-2017 14:44:00 ResultValue HIV Ag/Ab Screen NON REACTIVE Reference Range: NONREACTIVE HIV Ag/Ab screen is performed using the Siemens Advia Centaur HIV Ag/Ab Combo assay which detects the presence of HIV p24 antigen as well as antibodies to HIV-1 (Group M and O) and HIV-2. Comprehensive Metabolic Panel 21-Sep-2017 03:21:00 ResultValue Glucose, Serum 79 NA 137 K 3.8 CL 110 H Bicarbonate, Serum 19 L Anion Gap, Serum 12 BUN 6 CREAT 0.43 L GFR-Non >60 GFR- >60 Calcium, Serum 8.2 L ALB 3.3 L ALKP 31 L T Pro 5.3 L T Bili 0.4 Alanine Aminotransferase, Serum 16 Aspartate Transaminase, Serum 20 Complete Blood Count 21-Sep-2017 03:21:00 ResultValue White Blood Cell Count 11.6 H Nucleated Erythrocyte Count 0.0 Red Blood Cell Count 3.85 L HGB 11.3 L HCT 33.5 L MCV 87 MCHC 33.7 PLT 196 RDW-CV 13.1 Beta 2 Glycoprotein Ab 21-Sep-2017 03:21:00 ResultValue Pyxm-5-Vprhsprbrwjg IgG Antibody <1.4 Jqby-4-Tmgzsicnfmxu IgA Antibody 0.7 Ytyg-6-Itibkmuceozb IgM Antibody <0.2 Dilute Kervin Viper Venom Time (DRVVT) 21-Sep-2017 03:21:00 ResultValue DRVVT Screen 0.93 DRVVT Confirmation 1.02 DRVVT Test Ratio 0.91 Anticardiolipin Ab 21-Sep-2017 03:21:00 ResultValue Anticardiolipin IgG, Serum <1.6 Anticardiolipin IgA, Serum 0.6 Anticardiolipin IgM, Serum 0.2 Coagulation Screen 21-Sep-2017 03:21:00 ResultValue Prothrombin Time, Plasma 11.3 International Normalized Ratio, Plasma 1.0 Activated Partial Thromboplastin Time 26 HCG, Beta Quantitative 21-Sep-2017 03:21:00 ResultValue HCG, Beta Quantitative 44164 A Assessment and Plan: Assessment: 27 yo at 12.1 (09/22) wga by reported 8.5 wk US presenting for transfer of care from [place] with new dx of L transverse sinus thrombus. L transverse sinus thrombus - Neuro following, appreciate recommendations - MRI/MRA/MRV 09/21 obtained, preliminary read indicated partial filling defect more likely due to arachnoid granulations rather than thrombosis - Possible infectious etiology given immunosuppression, however, unlikely as patient has not had a f/leukocytosis - APLS labs wnl, factor V leiden, prothrombin pending - Currently on therapeutic lovenox. Once final read results, will dc AC if there is no lovenox H/o PEC - get baseline urine P:C - not on aspirin, will start patient on baby asa prior to discharge H/o 2/2 PEC - Unclear if classical? - Records request sent Hypotension, dizziness - 70-80s/40-50s overnight - 1L NS bolus - CBC, CMP IUP - labs obtained, wnl - Request US records Dispo - anticipate discharge today Margie Darien, PGY3 [facility] [id number] Signature/Cosignature/Attestation: Comments/ Additional Findings I saw and evaluated the patient. I personally obtained the moreno and critical portions of the history and physical exam or was physically present for moreno and critical portions performed by the resident/fellow. I reviewed the resident/fellow's documentation and discussed the patient with the resident/fellow. I agree with the resident/fellow's medical decision making as documented in her/his note. Espinoza Butcher MD [facility] Attending Electronic Signatures: Margie Ledezma (Resident)) (Signed 22-Sep-2017 08:30) Authored: Current Stage, Subjective Data, Objective Data, Assessment and Plan, Signature/Cosignature/Attestation Seymour Butcher) (Signed 22-Sep-2017 22:23) Authored: Signature/Cosignature/Attestation Co-Signer: Current Stage, Subjective Data, Objective Data, Assessment and Plan, Signature/Cosignature/Attestation Last Updated: 22-Sep-2017 22:23 by Seymour Butcher) NR MR VENOGRAPHY Observed: 09/21/2017 Status: F Source: [place] INTRACRANIAL W/O 6:00 PM HOSPITALS REPOSITORY CONTRAST Patient Name: ALY GUY STUDY: NR MRI BRAIN WO; NR MR VENOGRAPHY INTRACRANIAL W/O CONTRAST; 09/21/2017 5:59 pm; 09/21/2017 6:00 pm INDICATION: Signs/Symptoms: R/o venous sinus thrombosis. Stroke protocol. COMPARISON: None ACCESSION NUMBER(S): [id number]; [id number] ORDERING CLINICIAN: ELLYN TAPIA TECHNIQUE: MRI of the brain was performed with acquisition of axial diffusion-weighted, axial FLAIR, coronal T1, sagittal T1, and axial T2 gradient echo sequences. MRV of the head was performed with acquisition coronal and sagittal 2D time of flight sequence. Segmented MIPs are provided. FINDINGS: Brain: CSF Spaces: The ventricles, sulci and basal cisterns are within normal limits. Parenchyma: There is no diffusion restriction abnormality to suggest acute infarct. There is no focal parenchymal signal abnormality. There is no mass effect or midline shift. There is an incidental 9 mm pineal gland cyst. Paranasal Sinuses and Mastoids: Visualized paranasal sinuses and mastoid air cells are unremarkable. MRV of head: MRV images demonstrate no dural venous sinus thrombosis. Small 5 mm filling defect in the left transverse sinus demonstrates no corroborating signal abnormality on diffusion-weighted imaging and has morphology which is consistent with an arachnoid granulation. IMPRESSION: Unremarkable MRI brain and MRV head. I personally reviewed the images/study and I agree with the findings as stated. This study was interpreted at [facility], [place], [place]. Electronically signed by: MD TRAY RIGGS MRI BRAIN WO Observed: 09/21/2017 Status: F Source: [place] 5:59 PM HOSPITALS REPOSITORY Patient Name: ALY GUY STUDY: NR MRI BRAIN WO; NR MR VENOGRAPHY INTRACRANIAL W/O CONTRAST; 09/21/2017 5:59 pm; 09/21/2017 6:00 pm INDICATION: Signs/Symptoms: R/o venous sinus thrombosis. Stroke protocol. COMPARISON: None ACCESSION NUMBER(S): [id number]; [id number] ORDERING CLINICIAN: ELLYN TAPIA TECHNIQUE: MRI of the brain was performed with acquisition of axial diffusion-weighted, axial FLAIR, coronal T1, sagittal T1, and axial T2 gradient echo sequences. MRV of the head was performed with acquisition coronal and sagittal 2D time of flight sequence. Segmented MIPs are provided. FINDINGS: Brain: CSF Spaces: The ventricles, sulci and basal cisterns are within normal limits. Parenchyma: There is no diffusion restriction abnormality to suggest acute infarct. There is no focal parenchymal signal abnormality. There is no mass effect or midline shift. There is an incidental 9 mm pineal gland cyst. Paranasal Sinuses and Mastoids: Visualized paranasal sinuses and mastoid air cells are unremarkable. MRV of head: MRV images demonstrate no dural venous sinus thrombosis. Small 5 mm filling defect in the left transverse sinus demonstrates no corroborating signal abnormality on diffusion-weighted imaging and has morphology which is consistent with an arachnoid granulation. IMPRESSION: Unremarkable MRI brain and MRV head. I personally reviewed the images/study and I agree with the findings as stated. This study was interpreted at [facility], [place], [place]. Electronically signed by: CATY KARIMI MD WITH HBSAG Collected: 09/21/2017 Status: F Source: [place] 2:44 PM [facility] REPOSITORY TYPE CODE TESTS RESULT OUT OF REFERENCE UNITS RANGE LAB WBCR(LOINC 4.4 - 11.3 x10E9/L ) WBC 9.4 LAB NRBC(LOINC 0.0-0.0 /100 WBC ) NUCLEATED RBC 0.0 LAB RBCCT(LOIN 4.00 - 5.20 x10E12/L C) RBC Low 3.94 LAB HGB(LOINC) 12.0 - 16.0 g/dL HGB Low 11.4 LAB HCT(LOINC) 36.0 - 46.0 % HCT Low 34.6 LAB MCV(LOINC) 80 - 100 fL MCV 88 LAB MCHC2(LOIN 32.0 - 36.0 g/dL C) MCHC 32.9 LAB PLTCT(LOIN 150 - 450 x10E9/L C) PLT 193 LAB RDWCV(LOIN 11.5 - 14.5 % C) RDW-CV 13.1 LAB SYPHG(LOIN NONREACTIVE C) SYPHILIS IGG NON REACTIVE Result Comment: Patients receiving more than 5 mg/day of biotin may have interference in test results. A sample should be taken no sooner than eight hours after previous dose. Contact [phone] for additional information. LAB RUBIG(LOINC) IU/ML RUBELLA IGG AB 143.0 Result Comment: REF VALUES NON-IMMUNE: < 5 EQUIVOCAL: 5-9 IMMUNE: >=10 LAB HAGFN(LOINC) NONREACTIVE NONREACTIVE HEP.B SURFACE AG Result Comment: Patients receiving more than 5 mg/day of biotin may have interference in test results. A sample should be taken no sooner than eight hours after previous dose. Contact [phone] for additional information. LAB SOURCE(LOINC) Lab Specimen Source Performed By: #### PRNH3 #### [facility] [address] [place] [address] PATH REVIEW-HGB Collected: 09/21/2017 Status: F Source: [place] IDENTIFICATION 2:44 PM [facility] REPOSITORY TYPE CODE TESTS RESULT OUT OF RANGE REFERENCE UNITS LAB PRV27(LOINC ) PATH DESIRE REV-HGB IDENT. Result Comment: By her/his signature above, the Pathologist listed as making the final interpretation certifies that she/he has personally reviewed this case. Performed By: #### PR27 #### [facility] [address] [place] [id number] HEMOGLOBIN IDENTIFICATION Collected: 09/21/2017 Status: F Source: [place] 2:44 PM HOSPITALS REPOSITORY TYPE CODE TESTS RESULT OUT OF REFERENCE UNITS RANGE LAB HBA(LOINC) % HEMOGLOBIN A 96.7 LAB HBF(LOINC) % HEMOGLOBIN F 0.4 LAB HBA2(LOINC % ) HEMOGLOBIN A2 2.9 Result Comment: HGB A2 values may be falsely elevated in the presence of HGB S. LAB HBINT(LOINC) INTERPRETATION SEE COMMENT Result Comment: Normal Performed By: #### ALDO #### [facility] [address] [place] [id number] TYPE + SCREEN Collected: 09/21/2017 Status: CANCELLED Source: [place] 2:44 PM HOSPITALS REPOSITORY Order Comment: TEST TYPE + SCREEN WAS CANCELLED, 09/26/2017 15:46 DUPLICATE ORDER. TYPE CODE TESTS RESULT OUT OF REFERENCE UNITS RANGE LAB ABORH(LOIN C) ABO TYPE Canceled LAB RH(LOINC) RH TYPE Canceled LAB ABSC(LOINC ) ANTIBODY Canceled SCREEN Performed By: #### T+S #### [facility] [address] [place] [address] CLINICAL EVENT Observed: 09/21/2017 Status: UNK Source: [place] NOTE-UPDATED NEURO RECS 1:44 PM HOSPITALS REPOSITORY Event: Topic: Updated Neuro Recs Details: It is unclear if the imaging finding is indicative of a CVT vs arachnoid granulation. Please obtain MRV time of flight in addition to MRI brain with volumetric T1 and T2 images. Tammy Padgett MD PGY4 Neurology Resident Electronic Signatures: Tammy Martin ( (Resident)) (Signed 21-Sep-2017 13:51) Authored: Event Last Updated: 21-Sep-2017 13:51 by Tammy Martin (Resident)) TOTAL PROTEIN, URINE Collected: 09/21/2017 Status: CANCELLED Source: [facility] SPOT 11:55 AM HOSPITALS REPOSITORY Order Comment: TEST TOTAL PROTEIN, URINE SPOT WAS CANCELLED, 09/21/2017 11:55 ?Cancel Reason: Patient Discharged. TYPE CODE TESTS RESULT OUT OF REFERENCE UNITS RANGE LAB TPSP(LOINC) TOTAL Canceled PROT,URINE SPOT LAB CRTSP(LOINC ) Canceled CREATININE,U RINE LAB TPCRT(LOINC ) T. Canceled PROTEIN/CREA T RATIO Performed By: #### TPS2 #### [facility] [address] [place] [address] CONSULT-MATERNAL - Observed: 09/21/2017 Status: COMPLETED Source: [facility] ( MEDICAL STUDENT 7:37 AM HOSPITALS REPOSITORY NOTE , A Service: Service: Maternal - Medicine Medical Student: Medical Student Note Stephen Ghosh History of Present Illness: Admission Reason: L dural venous sinus thrombosis HPI: 27 yo at 12 wga by reported 8.5 wk US presenting as transfer from [place] with 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 Presented initially with L frontal KINNEY, dizziness, weakness/heaviness, and blurry vision. Transferred to and admitted to MFM service. This am, pt feeling poorly. Complaining of KINNEY, nausea, dizziness, and photophobia. notable for: - h/o PEC, not on ASA - h/o CS ?wga - Crohn's - smoking PMH: See above Meds: Courtney, phenergan Allergies: NKDA PSH: bowel resection 2004 FHx: unknown, adopted SHx: Smokes 6 cig/day, no EtOH, no drugs Allergies: ? No Known Allergies: Objective: Physical Exam: Constitutional: Uncomfortable, lying down with eyes closed in dark room Head/Neck: NC/AT Respiratory/Thorax: CTAB, no increased work of breathing on room air Cardiovascular: RRR, no m/r/g Gastrointestinal: Soft, nontender, nondistended Extremities: No warmth, edema, or tenderness in LE Neurological: thermite welder grossly intact, moving all 4 extremities Psychological: Mood stable, conversing appropriately Skin: No rashes or lesions Medications: Medications: Continuous Medications No continuous medications are active Scheduled Medications 1. Enoxaparin SubCutaneous: 60 mg SubCutaneous Every 12 Hours 2. with Folic Acid: 1 tablet(s) Oral Daily PRN Medications 1. Lidocaine 1% Injectable: 0.5 mL SubCutaneous Once 2. Magnesium Hydroxide -Al Hydrox -Simethicone Oral Liquid: 30 mL Oral Every 6 Hours 3. Magnesium Hydroxide Oral Liquid CONCENTRATE: 10 mL Oral Every 12 Hours 4. Metoclopramide Injectable: 10 mg IntraVenous Push Every 6 Hours 5. Morphine Injectable: 4 mg IntraVenous Push Every 4 Hours 6. Ondansetron Injectable: 4 mg IntraVenous Push Every 6 Hours 7. Psyllium Packet: 1 packet(s) Oral Daily 8. Sodium Chloride 0.9% Injectable Flush: 1.5 mL IntraVenous Flush Every 8 Hours and as Needed Recent Lab Results: Results: I have reviewed these laboratory results: Comprehensive Metabolic Panel 21-Sep-2017 03:21:00 ResultValue Glucose, Serum 79 NA 137 K 3.8 CL 110 H Bicarbonate, Serum 19 L Anion Gap, Serum 12 BUN 6 CREAT 0.43 L GFR-Non >60 GFR- >60 Calcium, Serum 8.2 L ALB 3.3 L ALKP 31 L T Pro 5.3 L T Bili 0.4 Alanine Aminotransferase, Serum 16 Aspartate Transaminase, Serum 20 Complete Blood Count 21-Sep-2017 03:21:00 ResultValue White Blood Cell Count 11.6 H Nucleated Erythrocyte Count 0.0 Red Blood Cell Count 3.85 L HGB 11.3 L HCT 33.5 L MCV 87 MCHC 33.7 PLT 196 RDW-CV 13.1 Beta 2 Glycoprotein Ab 21-Sep-2017 03:21:00 ResultValue Eqqc-5-Nvzisugfkxmu IgG Antibody <1.4 Xtqr-5-Mkpodvhequvg IgA Antibody 0.7 Qmmj-2-Esggkjxjebox IgM Antibody <0.2 Dilute Kervin Viper Venom Time (DRVVT) 21-Sep-2017 03:21:00 ResultValue DRVVT Screen 0.93 DRVVT Confirmation 1.02 DRVVT Test Ratio 0.91 Anticardiolipin Ab 21-Sep-2017 03:21:00 ResultValue Anticardiolipin IgG, Serum <1.6 Anticardiolipin IgA, Serum 0.6 Anticardiolipin IgM, Serum 0.2 Coagulation Screen 21-Sep-2017 03:21:00 ResultValue Prothrombin Time, Plasma 11.3 International Normalized Ratio, Plasma 1.0 Activated Partial Thromboplastin Time 26 HCG, Beta Quantitative 21-Sep-2017 03:21:00 ResultValue HCG, Beta Quantitative 37605 A Assessment: 27 yo at 12 wga by reported 8.5 wk US presenting for transfer of care from [place] with new dx of L transverse sinus thrombus. L transverse sinus thrombus - Neuro following - Considering CVT vs migraine - Possible infectious etiology given immunosuppression - Recs: Continue enoxaparin, MRV today, IVF, tylenol, mag for KINNEY - Appreciate neuro recs - Will get thrombophilia workup labs H/o PEC - get baseline urine P:C - not on aspirin H/o 2/2 PEC - Unclear if classical? What wga at delivery - Will request records Hypotension, dizziness - 70-80s/40-50s overnight - 1L NS bolus - CBC, CMP IUP - Request lab records - Request US records Stephen Ghosh MS4 Signature/Cosignature/Attestation: Grapple Skidder Operator Only - Attest to Medical Student/Acting Splitting Machine Operator documentationAs a teaching institution, we recognize that medical students need to learn how to formulate documentation in the medical record. Although this document has been reviewed and the student has been given formative feedback by me, clinical decisions should not be based on the information contained herein. Comments/ Additional Findings MFM Attending Addendum: I have seen, evaluated and counseled the above patient independently. I reviewed the documentation and agree with the clinical assessment and medical decision making as noted above with the following addendum/modifications: 27 yo at 12+0 wga admitted to AP service for further evaluation and management of a suspected dural sinus thrombosis. Patient presented to outside hospital with KINNEY/photophobia and CT noted L transverse sinus thrombosis. Anticoagulation and analgesia was initiated and Neurology was consulted on admission. 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 She denies a history of chronic HTN or prior VTE. Family history unknown as patient adopted. This morning reports ongoing KINNEY that has improved with analgesia/magnesium. She denies weakness, numbness, visual change or other neurologic sx. She denies chest pain, palpitations, dyspnea, pleurisy, calf pain, abdominal pain or VB and ROS othetwise negative. AF and VS stable/appropriate (hypotension transient). Cardiopulmonary exam non-focal. Abdomen soft, non-distended, non-tender, no rebound. Extremities without erythema, tenderness or edema. Neuro exam with normal strength, DTRs. Labs reviewed. US reviewed this morning - AGA, NT could not be measured. Impression: Richter gestation at 12+0 wga Suspected dural sinus thrombosis Crohn's disease - stable History of Pre-E and medically indicated PTD Tobacco use Plan: Currently maternal and status reassuring. Appreciated Neurology recommendations regarding possible dural sinus thrombosis. MRI/MRV planned for this morning. Continue therapeutic anticoagulation. Testing for inherited and acquired thrombophilias pending. Tobacco cessation encouraged. Discussed with Neurology service clinical parameters for transfer (if elevated ICP, frequent Neuro checks indicated, change in neurologic sx profile/clinical status). Risks/ implications of IBD in reviewed. IBD clinically stable on current biologic therapy. Plan to obtain records from prior and after completion of evaluation for sinus thrombosis will discuss addition of ASA prophylaxis. All questions answered. Ms. Guy expressed understanding and agreement with the plan of care. Lan Andujar MD Electronic Signatures: Lan Andujar () (Signed 21-Sep-2017 13:39) Authored: Signature/Cosignature/Attestation Co-Signer: Service, History of Present Illness, Allergies, Objective, Assessment/Recommendations, Signature/Cosignature/Attestation Stephen Ghosh (MED STUD) (Signed 21-Sep-2017 11:54) Authored: Service, History of Present Illness, Allergies, Objective, Assessment/Recommendations, Signature/Cosignature/Attestation Last Updated: 21-Sep-2017 13:39 by Lan Andujar) CONSULT - NEURO-STROKE Observed: 09/21/2017 Status: COMPLETED Source: [place] 4:16 AM [facility]OSPITALS REPOSITORY Service: Service: Service: Stroke Consult: Consult requested by (Attending Name): Sam Reason: CVT History of Present Illness: HPI: This is a 27 yo woman currently 10 week , migraines presenting as transfer from [place] with diagnosis of L transverse dural venous sinus thrombosis on CTH. She states she had sudden onset headache around 3PM, predominantly R sided radiating towards the frontal area. Does have photophobia. Pain initially 8/10, increased in intensity to 9/10 pain, has improved slightly since pain medication and zofran at OSH. Pain is sharp constant, not throbbing. black spots in bilateral visual rider come and go in vision, not especially blurry. Partial numbness in arms and legs soon after initiation of headache, felt heaviness diffusely throughout her body. She was able to walk. She presented to [facility] when the headache didn't resolve after a few hours like it usually does. CTV showed a nonocclusive L transverse sinus thrombus. She was transferred to OBGYN service at [facility]. She has migraines a few times each year. Last one was 7 weeks ago. She thinks they are worsened by . She endorses seeing black spots, stroke like symptoms (L face weakness) and bilateral upper and lower extremity numbness. She always took excedrin in the past. These will improve after a few hours. Recently not sleeping well due to nausea from . Was prescribed an OTC sleeping pill by her doctor as well as nausea medication one month ago. No issues with per patient. All other ROS negative except as noted above. PMH Crohns disease s/p partial colectomy Migraine NKDA Home meds: Humira OTC sleep aid Promethazine FH Unsure of family hx since she was adopted [place] Smoking 5 cigarettes daily, trying to cut down No alcochol No drugs Lives with at home Allergies: ? No Known Allergies: Objective: Objective Information: T PRBPSpO2 [id number]% Date/Time09/21 2:107 3: 2:107 4:137 2:10 Range(37C - 37C ) (73 - 82 ) (20 - 20 ) (76 - 116 )/ (41 - 80 ) (94% - 94% ) Highest temp of 37 C was recorded at 09/21 2:10 General Neurology: General Neurology Extensive Exam: GENERAL APPEARANCE: No distress, alert, interactive and cooperative. NECK: Full range of neck motion with no pain or stiffness. CARDIOVASCULAR: Regular, rate and rhythm, no murmurs, normal S1 and S2. Carotid pulses intact without any bruits. Pulses +2 and equal in all extremities. No swelling, varicosities, edema, or tenderness to palpation. MENTAL STATE: Orientation was normal to time, place and person. Recent and remote memory was intact. Attention span and concentration were normal. Language testing was normal for comprehension, repetition, expression, and naming. Calculation was intact.The patient could correctly interpret a picture, and copy a diagram. General fund of knowledge was intact. OPHTHALMOSCOPIC: Unable to perform fundascopic exam due to photophobia. CRANIAL NERVES: CN 2 Visual Acuity OD: 20/40 (corrected) OS: 20/30 (corrected); visual rider full to confrontation. CN 3, 4, 6 Pupils round, 4 mm in diameter, equally reactive to light. Lids symmetric; no ptosis. EOMs normal alignment, full range with normal saccades, pursuit and convergence. VOR normal. No nystagmus. CN 5 Facial sensation intact bilaterally. CN 7 Normal and symmetric facial strength. Nasolabial folds symmetric. Raising eyebrows worsened headache. CN 8 Hearing intact to finger rub CN 9 Palate elevates symmetrically. CN 11 Normal strength of shoulder shrug and neck turning. CN 12 Tongue midline, with normal bulk and strength; no fasciculations. MOTOR: Motor exam was normal. Muscle bulk and tone were normal in both upper and lower extremities. Muscle strength was 5/5 in distal and proximal muscles in both upper and lower extremities. No fasciculations, tremor or other abnormal movements were present. REFLEXES: Reflexes were normal. RIGHT UE LEFT UE BR:2 BR:2 Biceps:2 Biceps: deferred because sensitive IV Triceps:2 Triceps:2 RIGHT LLE LEFT LLE Knee:2 Knee:2 Ankle:2 Ankle:2 Babinski: toes downgoing to plantar stimulation. No clonus, frontal release signs or other pathologic reflexes present. SENSORY: Sensory exam was normal. In both upper and lower extremities, sensation was intact to light touch; sharp/dull, and vibration sense. COORDINATION: Coordination exam was normal. In both upper extremities, [id number] was intact without dysmetria or overshoot. In both lower extremities, [id number] was intact. KAYLEE were intact in both upper and lower extremities. GAIT:Deferred due to , weakness Medications: Medications: Continuous Medications No continuous medications are active Scheduled Medications 1. Enoxaparin SubCutaneous: 60 mg SubCutaneous Every 12 Hours 2. with Folic Acid: 1 tablet(s) Oral Daily PRN Medications 1. Lidocaine 1% Injectable: 0.5 mL SubCutaneous Once 2. Magnesium Hydroxide -Al Hydrox -Simethicone Oral Liquid: 30 mL Oral Every 6 Hours 3. Magnesium Hydroxide Oral Liquid CONCENTRATE: 10 mL Oral Every 12 Hours 4. Metoclopramide Injectable: 10 mg IntraVenous Push Every 6 Hours 5. Morphine Injectable: 4 mg IntraVenous Push Every 4 Hours 6. Ondansetron Injectable: 4 mg IntraVenous Push Every 6 Hours 7. Psyllium Packet: 1 packet(s) Oral Daily 8. Sodium Chloride 0.9% Injectable Flush: 1.5 mL IntraVenous Flush Every 8 Hours and as Needed Recent Lab Results: Results: I have reviewed these laboratory results: Comprehensive Metabolic Panel 21-Sep-2017 03:21:00 ResultValue Glucose, Serum 79 NA 137 K 3.8 CL 110 H Bicarbonate, Serum 19 L Anion Gap, Serum 12 BUN 6 CREAT 0.43 L GFR-Non >60 GFR- >60 Calcium, Serum 8.2 L ALB 3.3 L ALKP 31 L T Pro 5.3 L T Bili 0.4 Alanine Aminotransferase, Serum 16 Aspartate Transaminase, Serum 20 Complete Blood Count 21-Sep-2017 03:21:00 ResultValue White Blood Cell Count 11.6 H Nucleated Erythrocyte Count 0.0 Red Blood Cell Count 3.85 L HGB 11.3 L HCT 33.5 L MCV 87 MCHC 33.7 PLT 196 RDW-CV 13.1 Coagulation Screen 21-Sep-2017 03:21:00 ResultValue Prothrombin Time, Plasma 11.3 International Normalized Ratio, Plasma 1.0 Activated Partial Thromboplastin Time 26 HCG, Beta Quantitative 21-Sep-2017 03:21:00 ResultValue HCG, Beta Quantitative 46022 A Radiology Results: Results: CT venous (contrast) reviewed from disk in paper chart. Non- occlusive <1cm flow void in L transverse sinus. Assessment/Recommendations: Aly Guy is a 27 yo 10 week woman presenting for headache, transferred to [facility] for L transverse sinus thrombus. Patient's black spots in vision, paresthesias, photophobia and quality of headache are similar to past migraines, though this headache is longer lasting than prior headaches, and her extremities feel heavier than prior headaches. It is possible that a CVT is precipitating a migraine and both phenomena are present. Recommend continuing to treat for CVT unless CVT is ruled out. In the setting of immunosuppression, considered infectious phenomenon. No meningeal signs, and WBC not markedly elevated (11.6). Impression: CVT vs. migraine Plan: -Please obtain MRV head to confirm CVT -Continue anticoag for now -Consider IVF, tylenol, mag for headache relief I contributed to above history, physical, assessment and plan and agree with all documentation. Jonny Leslie PGY4 Neurology Resident Signature/Cosignature/Attestation: Attending AttestationI saw and evaluated the patient. I personally obtained the moreno and critical portions of the history and physical exam or was physically present for moreno and critical portions performed by the resident/fellow. I reviewed the resident/fellow?s documentation and discussed the patient with the resident/fellow. I agree with the resident/fellow?s medical decision making as documented in the resident/fellow?s note with the exception/addition of the following: I personally evaluated the patient (as noted in the above attestation) on 21-Sep-2017 Comments/ Additional Findings 27 year old woman currently 10 weeks . She has a history of complex migraines several times a year with the last one 7 weeks ago. Typically these begin with visual aura followed by photophobia, headache, and sometimes facial weakness and numbness of both upper extremities. At this time, she had a similar headache though it started suddenly (and was not preceded by aura though she developed typical black spots later). Headache lasted longer than usual and was accompanied by sense of heaviness in legs (which she thinks is not typical). These symptoms have resolved though she has a mild headache still. At [place] ED, CTV was interpreted as showing a nonocclusive L transverse sinus thrombus. She was transferred to OBGYN service at [facility] and started on full anticoagulation with Lovenox. Clinically she is stable. Reviewed images here with neuroradiology (Vijaya Johnson). He felt that most likely what was interpreted as thrombus is more arachnoid granulations (a normal variant). In order to confirm this, we will obtain MRV. Continue with anticoagulation for now. Electronic Signatures: Ishan Ricardo (Resident)) (Signed 21-Sep-2017 05:42) Authored: History of Present Illness, Objective, Assessment/Recommendations, Signature/Cosignature/Attestation Jonny Carlson) (Signed 21-Sep-2017 16:06) Authored: Signature/Cosignature/Attestation Co-Signer: History of Present Illness, Objective, Assessment/Recommendations, Signature/Cosignature/Attestation Jonny Leslie (Resident)) (Signed 21-Sep-2017 05:01) Authored: Service, History of Present Illness, Allergies, Objective, Assessment/Recommendations Last Updated: 21-Sep-2017 16:06 by Jonny Carlson) HISTORY AND PHYSICAL Observed: 09/21/2017 Status: COMPLETED Source: [facility] 3:42 AM [facility] REPOSITORY HPI/OB History/Dating: Care Provider: Other Care Location: Other Did this patient receive any care at [facility]?: no Was this patient transferred from another facility for this admission?: yes Transfer Location (If patient is coming from an office, choose the hospital where patient intended to deliver.): Other Dating: ? Choose Antepartum or Postpartumantepartum ? Final [id number] ? Current EGA:12 HPI Descriptive Info: ? HPI 27 yo at 12.0 wga by reported 8.5 wk U/S presents as a transfer from [place] with a new diagnosis of left dural venous sinus thrombosis on CT scan. She initially presented with a left frontal headache that was throbbing in nature, along with whole body soreness and a weakness/heaviness in her limbs. Her headache improved with morphine and darkness, but is again severe several hours after morphine administration, 10/10. She reports blurry vision and dark spots in her vision, but denies any vision loss. She feels like her arms are numb and tingling, and has trouble moving her limbs, but denies any urinary or bowel sx. Regarding her , she is unsure of her LMP, but states that she has had three ultrasounds and was initially given a due date of 04/05/18 based on an 8.5 wk US. notable for: - hx PEC, not on ASA - hx CS for PEC - Crohns disease: last flare 6 mos. 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 High Risk Factors for Hemorrhage: none of these exist ? TOLAC: no Progesterone: ? Did this patient receive progesterone in any form to prevent premature deliveryno IUD Assessment: ? Does patient desire postplacental IUD?uncertain Family History: Family History: reviewed and not pertinent to presenting problem Social History: Social History: Smoking Statuslight tobacco user (smokes <10 cigs daily, OR < ? PPD, OR <2 cans/pouches loose leaf tobacco per week) Alcohol Usedenies Drug Usedenies Allergies: ? No Known Allergies: Review of Systems: Constitutional: NEGATIVE: Fever, Chills, Anorexia, Weight Loss, Malaise Eyes: POSITIVE: Blurry Vision, Vision Loss/ Change; NEGATIVE: Drainage, Diploplia, Redness ENMT: NEGATIVE: Nasal Discharge, Nasal Congestion, Ear Pain, Mouth Pain, Throat Pain Respiratory: NEGATIVE: Dry Cough, Productive Cough, Hemoptysis, Wheezing, Shortness of Breath Cardiac: NEGATIVE: Chest Pain, Dyspnea on Exertion, Orthopnea, Palpitations, Syncope Gastrointestinal: NEGATIVE: Nausea, Vomiting, Diarrhea, Constipation, Abdominal Pain Genitourinary: NEGATIVE: Discharge, Dysuria, Flank Pain, Frequency, Hematuria Musculoskeletal: POSITIVE: Decreased ROM, Pain, Weakness; NEGATIVE: Swelling, Stiffness Neurological: POSITIVE: Headache; NEGATIVE: Dizziness, Confusion, Seizures, Syncope Psychiatric: NEGATIVE: Mood Changes, Anxiety, Hallucinations, Sleep Changes, Suicidal Ideas Objective: Objective Information: T PRBPSpO2 [id number]% Date/Time09/21 2: 3: 2: 3: 2:10 Range(37C - 37C ) (73 - 81 ) (20 - 20 ) (81 - 116 )/ (46 - 80 ) (94% - 94% ) Highest temp of 37 C was recorded at 09/21 2:10 Physical Exam: Constitutional: Well developed, awake/alert/oriented, moderate distress, cooperative Obstetric: SVE: C/T/H Eyes: clear sclera ENMT: no apparent injury, no lesions seen Head/Neck: neck supple, no apparent injury, no thyromegaly Respiratory/Thorax: normal respiratory effort Cardiovascular: RRR Gastrointestinal: soft, nontender in all 4 quadrants Genitourinary: normal external genitalia, no lesions or erythema Musculoskeletal: ROM limited by pain Extremities: normal extremities, no cyanosis, edema, contusions or wounds Neurological: alert and oriented, no focal deficits noted, 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, 3/5 triceps, biceps 3/5, CN II-XII in tact, strength exam likely limited by pain Psychological: Appropriate mood and behavior Skin: Warm and dry, no lesions, no rashes Recent Lab Results: Results: I have reviewed these laboratory results: Complete Blood Count 21-Sep-2017 03:21:00 ResultValue White Blood Cell Count 11.6 H Nucleated Erythrocyte Count 0.0 Red Blood Cell Count 3.85 L HGB 11.3 L HCT 33.5 L MCV 87 MCHC 33.7 PLT 196 RDW-CV 13.1 Coagulation Screen 21-Sep-2017 03:21:00 ResultValue Prothrombin Time, Plasma 11.3 International Normalized Ratio, Plasma 1.0 Activated Partial Thromboplastin Time 26 Assessment and Plan: Assessment: 27 yo at 12.0 wga by reported 8.5 wk U/S presents as a transfer from [place] with a new diagnosis of left dural venous sinus thrombosis on CT scan. 1. Dural venous sinus thrombosis - vital wnl - thrombophilia labs pending - started therapeutic lovenox 60 mg BID - morphine 4 mg IV given for acute pain - neurology consulted, appreciate recs 2. - beta hcg pending, no labs available - for SSUS when stable - patient reports following with OB in [place] d/w Dr. Lam Marie, PGY-2 Signatures/Attestation/Certification: Attending AttestationI saw and evaluated the patient. I personally obtained the moreno and critical portions of the history and physical exam or was physically present for moreno and critical portions performed by the resident/fellow. I reviewed the resident/fellow?s documentation and discussed the patient with the resident/fellow. I agree with the resident/fellow?s medical decision making as documented in the resident/fellow?s note with the exception/addition of the following: I personally evaluated the patient (as noted in the above attestation) on 21-Sep-2017 Comments/ Additional Findings Transferred from [place] for dural venous sinus thrombosis and headache. She is approximately 10wga at this point. Anticoagulation started and neuro recs appreciated. Giving a mag bolus now as headache is still severe. MFM consult this AM. Attending Provider/ALIRIO with Admit Privileges ? Inpatient Certification StatementI certify this patient?s need for inpatient care based on the above documentation including; the order to admit as inpatient, the anticipated length of stay, diagnosis, problem list and plan of care, and discharge plan. Electronic Signatures: Bahman Sam) (Signed 21-Sep-2017 07:11) Authored: Signatures/Attestation/Certification Co-Signer: Social History, Allergies, Review of Systems, Objective, Assessment and Plan, Signatures/Attestation/Certification, Antepartum, Family History, HPI/OB History/Dating Mariella Maire (Resident)) (Signed 21-Sep-2017 04:03) Authored: Social History, Allergies, Review of Systems, Objective, Assessment and Plan, Signatures/Attestation/Certification, Antepartum, Family History, HPI/OB History/Dating Last Updated: 28-Sep-2017 10:02 by Noris Arora ([facility]) ADMISSION RISK SCREEN Observed: 09/21/2017 Status: UNK Source: [facility] 3:36 AM [facility]OSPITALS REPOSITORY Allergies: Allergies: ? No Known Allergies: Patient Verification: ? New W ID Band Applied in my Departmentyes ? Patient Identity Verified Bypatient ? ID Band FULL Name, include Middle, spelling matches patient's ID used for verificationyes ? ID Band Matches Patient ID used for Verficationyes ? ID Band MRN Matches EMR MRNyes Advance Directive: ? Advance Directive Medicalno ? Advance Directive Information Givenpatient/family declined ? Advance Directive Mental Healthnot applicable Falls Risk: ? Altered Mobilitynone ? Change in Mental Statusno ? Relevant Medical History / Diagnosisnone ? Fall Historynone ? Altered Eliminationno ? Medications that Might Alter: equilibrium, cognitive judgement or severity of injuryanticoagulants, narcotics ? Sensory Deficitno ? UNABLE or UNWILLING to Follow Directionsno ? Patient Identified as a Falls Riskyes Family Violence Screen: ? Are you or have you been threatened or abused physically, emotionally, or sexually by anyone?no ? Do you feel UNSAFE going back to the place where you are living?no ? Clinical assessment: Are there any apparent signs of injuries/behaviors that could be related to abuse/neglectno ? Social Service Consult for abuse/neglect needed this visit?no Functional screen: ? Functional Screen: In the recent/past 2-4 weeks, patient or family have noticedno issues that require a rehabilitation consult at this time Learning Assessment (Patient): ? Patient is Able to be Assessed for Learningyes ? Factors Influencing Readiness to Learnpain ? Factors that Impact Ability to Learnnone ? Devices/Methods Used to Communicatenone ? Learning Preferencesverbal instruction ? Cultural Considerationsnone ? Developmental Considerationsnone ? Lutheran Considerationsnone Learning Assessment (Other Learner): ? Other learner availableno Nutrition Risk Screen: ? Nutrition Risk Screenno indicators present ? Nutrition Consult needed this visit?no ? Can Patient Participate in Room Service?no Pain Screen: ? Pain Control Method: Labormedication ? Pain Control Method: Postpartummedication ? Pain Scalenumerical 0-10 ? Pain Scale Educationteaching provided ? Acceptable Pain Level5 = Moderate ? Expression of Pain (nonverbal)crying, grimace, moaning, verbalization ? Chronic Painno Skin - Samuel Scale: Samuel Scale (daily): ? Samuel: Sensory Perception (response to environment)(4) no impairment ? Samuel: Moisture (degree skin exposed to moisture)(3) occasionally moist ? Samuel: Activity (ability to walk)(4) walks frequently ? Samuel: Mobility (amount/control of body movement)(4) no limitation ? Samuel: Nutrition (quality of food intake)(3) adequate ? Samuel: Friction and Shear(3) no apparent problem ? Samuel: Score21 Pressure Injury Present on Admissionno Spiritual Screen: ? Are there any cultural, spiritual, holiness practices/values/needs that are important for us to know?no Suicide/Depression Screen: ? During the past month, have you often been bothered by feeling down, depressed or hopeless?no ? During the past month, have you often had little interest or pleasure in doing things?no ? Have you had any thoughts of harming yourself?no ? Have you had any thoughts of harming anyone else?no Vaccinations: Vaccination - Influenza Vaccination Screen: ? Is it flu season? (between and )No Vaccination - Pneumonia Vaccination Screen: ? Patient has received a previous pneumonia vaccine:no/unknown... ? Immunocompetent persons with underlying chronic conditions or reside in shelter care facilitiesnone of these conditions ? Persons with Functional or Anatomic Asplenianone of these conditions ? Immunocompromised Personsnone of these conditions ? Pneumonia vaccine NOT indicated due to:patient DOES NOT have a condition that indicates vaccination Vaccination - TDap Vaccination Screen: ? Have you received a TDap vaccine this ?no or unknown... ? TDap vaccine recommended for the following (expanded guideline statements below):ALL women between 27.0 and 36.0 weeks gestation age or immediately ? TDap vaccine should NOT be administered for the following reasons (expanded guideline statements below):patient does not meet recommended guidelines ? TDap vaccine indicated?no (indicate reason above) Significant Indicatiors: Significant Indicators: Complete ? Note Name:Admission Risk Screen - OB Electronic Signatures: Dania Forte (CORTNEY) (Signed 21-Sep-2017 03:41) Authored: Admission Risk Screens, Vaccinations, Mother's Chart (Do Not Modify) Last Updated: 21-Sep-2017 03:41 by Dania Forte) CBC Collected: 09/21/2017 Status: F Source: [place] 3:21 [facility] REPOSITORY TYPE CODE TESTS RESULT OUT OF REFERENCE UNITS RANGE LAB WBCR(LOINC 4.4 - 11.3 x10E9/L ) WBC High 11.6 LAB NRBC(LOINC 0.0-0.0 /100 WBC ) NUCLEATED RBC 0.0 LAB RBCCT(LOIN 4.00 - 5.20 x10E12/L C) Low RBC 3.85 LAB HGB(LOINC) 12.0 - 16.0 g/dL Low HGB 11.3 LAB HCT(LOINC) 36.0 - 46.0 % Low HCT 33.5 LAB MCV(LOINC) 80 - 100 fL MCV 87 LAB MCHC2(LOIN 32.0 - 36.0 g/dL C) MCHC 33.7 LAB PLTCT(LOIN 150 - 450 x10E9/L C) PLT 196 LAB RDWCV(LOIN 11.5 - 14.5 % C) RDW-CV 13.1 Performed By: #### CBC #### [facility] [address] [place] [address] COAGULATION SCREEN Collected: 09/21/2017 Status: F Source: [place] 3:[address] [place] [address] REPOSITORY TYPE CODE TESTS RESULT OUT OF REFERENCE UNITS RANGE LAB PT(LOINC) 9.8 - 12.7 sec PROTHROMBIN TIME 11.3 LAB INR(LOINC) 0.9 - 1.1 PT, INR 1.0 LAB APTT(LOINC 25 - 36 sec ) APTT 26 Result Comment: THE APTT IS NO LONGER USED FOR MONITORING UNFRACTIONATED HEPARIN THERAPY. FOR MONITORING HEPARIN THERAPY, USE THE HEPARIN ASSAY. Performed By: #### COAGS #### [facility] [address] [place] [address] COMPREHENSIVE PANEL Collected: 09/21/2017 Status: F Source: [place] 3:[address] [place] [address] REPOSITORY TYPE CODE TESTS RESULT OUT OF REFERENCE UNITS RANGE LAB GLU(LOINC) 74 - 99 mg/dL GLUCOSE 79 LAB SOD(LOINC) 136 - 145 mmol/L SODIUM 137 LAB K(LOINC) 3.5 - 5.3 mmol/L POTASSIUM 3.8 LAB CHLOR(LOIN 98 - 107 mmol/L C) CHLORIDE High 110 LAB BIC(LOINC) 21 - 32 mmol/L Low BICARBONATE 19 LAB ANGAP(LOIN 10 - 20 mmol/L C) ANION GAP 12 LAB UREA(LOINC 6 - 23 mg/dL ) UREA NITROGEN 6 LAB CREA(LOINC 0.50 - 1.05 mg/dL ) Low CREATININE 0.43 LAB GFRFN(LOIN >60 mL/min/1.7 C) 3m2 GFR-NON AM. >60 LAB GFRAA(LOIN >60 mL/min/1.7 C) 3m2 GFR- AM. >60 Result Comment: CALCULATIONS OF ESTIMATED GFR ARE PERFORMED USING THE MDRD STUDY EQUATION FOR THE IDMS-TRACEABLE CREATININE METHODS. CLIN CHEM 2007;53:766-72 LAB CA(LOINC) 8.6 - 10.6 mg/dL CALCIUM Low 8.2 LAB ALB(LOINC) 3.4 - 5.0 g/dL ALBUMIN Low 3.3 LAB AP(LOINC) 33 - 110 U/L ALKALINE Low PHOSPHATASE 31 LAB TP(LOINC) 6.4 - 8.2 g/dL TOTAL PROTEIN Low 5.3 LAB AST(LOINC) 9 - 39 U/L AST 20 LAB TBILI(LOINC) 0.0 - 1.2 mg/dL BILIRUBIN,TOTAL 0.4 LAB ALT(LOINC) 7 - 45 U/L ALT 16 Result Comment: Patients treated with Sulfasalazine may generate falsely decreased results for ALT. Performed By: #### CMP #### [facility] [address] [place] [address] HCG,BETA-QUANTITATIVE Collected: Status: F Source: [place] 09/21/2017 3:[facility] REPOSITORY TYPE CODE TESTS RESULT OUT OF RANGE REFERENCE UNITS LAB HCGQU(LOINC IU/L ) Abnormal [address]76[address] HCG,BETA-QU ANTITATIVE Result Comment: Low-level positive HCG results can be seen in early , in teo- or post-menopausal females due to normal pituitary HCG production, or with analytic interference. Repeat testing in 48-72 hours can aid in assessing for as results should double in this time period. FSH measurement is recommended in teo- or post-menopausal females as concurrent elevation of FSH can support pituitary production as the source of the HCG elevation. . Total HCG measurement is performed using the Siemens Advia Centaur immunoassay which detects intact HCG and free beta HCG subunit. This test is not indicated for use as a tumor marker. HCG testing is performed using a different test methodology at [facility] than other [facility]. Direct result comparison should only be made within the same method. REF VALUES NON FEMALE <5 MALES <5 Performed By: #### HCGQU #### [facility] [address] [place] [address] DILUTE KERVIN VIPER Collected: 09/21/2017 Status: F Source: [place] VENOM TIME[DRVVT] 3:21 AM [facility] REPOSITORY TYPE CODE TESTS RESULT OUT OF REFERENCE UNITS RANGE LAB DRVSC(LOIN RATIO C) DRVVT SCREEN 0.93 LAB DRVCN(LOIN RATIO C) DRVVT CONFIRMATION 1.02 LAB DRVTR(LOIN <=1.20 RATIO C) DRVVT TEST RATIO 0.91 Performed By: #### DRVVT #### [facility] [address] [place] [address] BETA 2 GLYCOPROTEIN AB Collected: 09/21/2017 Status: F Source: [place] 3:[facility] REPOSITORY TYPE CODE TESTS RESULT OUT OF REFERENCE UNITS RANGE LAB B2IGG(LOIN 0.0 - 20.0 U/mL C) B2 GLYCOPROTEIN AB <1.4 IGG Result Comment: Elevated levels of IgG anti-Beta 2 Glycoprotein-I on 2 occasions at least 12 weeks apart are laboratory criteria for anti-phospholipid syndrome according to an international consensus (J Thromb Haemost 2006 4:295). LAB B2IGA(LOINC) 0.0 - 20.0 U/mL B2 GLYCOPROTEIN AB IGA 0.7 Result Comment: Elevated levels of IgA anti-Beta 2 Glycoprotein-I have not been included in the laboratory criteria for anti-phospholipid syndrome according to an international consensus (J Thromb Haemost 2006 4:295). It may be helpful in identifying subgroups of patients at risk for specific clinical manifestations of anti-phospholipid syndrome. A significant proportion of IgA anti-Beta 2 Glycoprotein- positive tests has no apparent association with any clinical manifestation of anti-phospholipid syndrome. LAB B2IGM(LOINC) 0.0 - 20.0 U/mL B2 GLYCOPROTEIN AB IGM <0.2 Result Comment: Elevated levels of IgM anti-Beta 2 Glycoprotein-I on 2 occasions at least 12 weeks apart are laboratory criteria for anti-phospholipid syndrome according to an international consensus (J Thromb Haemost 2006 4:295). IgM anti-Beta 2 Glycoprotein-I tends to give false positive results in the low positive range, especially in the presence of rheumatoid factor or cryoglobulins. Performed By: #### B2GLY #### [facility] [address] [place] [address] ANTICARDIOLIPIN AB Collected: 09/21/2017 Status: F Source: [place] 3:21 AM [facility] REPOSITORY TYPE CODE TESTS RESULT OUT OF RANGE REFERENCE UNITS LAB ACAG2(LOINC 0.0 - 20.0 GPL U/mL ) NICK IGG <1.6 Result Comment: Elevated levels of IgG anti-cardiolipin on 2 occasions at least 12 weeks apart are laboratory criteria for anti-phospholipid syndrome according to an international consensus (J Thromb Haemost 2006 4:295). LAB ACAIA(LOINC) 0.0 - 20.0 APL U/mL NICK 0.6 IGA Result Comment: Elevated levels of IgA anti-cardiolipin have not been included in the laboratory criteria for anti-phospholipid syndrome according to an international consensus (J Thromb Haemost 2006 4:295). It may be helpful in identifying subgroups of patients at risk for specific clinical manifestations of anti-phospholipid syndrome. LAB ACAM2(LOINC) 0.0 - 20.0 MPL U/mL NICK 0.2 IGM Result Comment: Elevated levels of IgM anti-cardiolipin on 2 occasions at least 12 weeks apart are laboratory criteria for anti-phospholipid syndrome according to an international consensus (J Thromb Haemost 2006 4:295). IgM anti-cardiolipin tends to give false positive results in the low positive range, especially in the presence of rheumatoid factor or cryoglobulins. Performed By: #### ACA2 #### [facility] [address] [place] [address] FACTOR V LEIDEN Collected: 09/21/2017 Status: F Source: [place] 3:21 [facility] REPOSITORY TYPE CODE TESTS RESULT OUT OF REFERENCE UNITS RANGE LAB GINT9(LOINC ) FACTOR V SEE BELOW LEIDEN Result Comment: RESULTS WILL BE SENT ON SEPARATE REPORT. Performed By: #### LEID2 #### [facility] [address] [address] [place], [place] [id number] PROTHROMBIN MUTATION- Collected: 09/21/2017 Status: F Source: [place] [id number] 3:[facility] REPOSITORY TYPE CODE TESTS RESULT OUT OF REFERENCE UNITS RANGE LAB GIN19(LOIN C) PROTHROMBIN MUTATION- [id number] SEE BELOW Result Comment: RESULTS WILL BE SENT ON SEPARATE REPORT. Performed By: #### GPRO2 #### [facility] [address] [address] [place], [place] [id number] TYPE + SCREEN Collected: 09/21/2017 Status: CANCELLED Source: [place] 3:20 [facility] REPOSITORY Order Comment: TEST TYPE + SCREEN WAS CANCELLED, 09/22/2017 15:56 DUPLICATE ORDER see [id number]. TYPE CODE TESTS RESULT OUT OF REFERENCE UNITS RANGE LAB ABORH(LOINC ) ABO TYPE Canceled Result Comment: This is a corrected result. Previous value was A, verified at 09/21/2017 11:02 LAB RH(LOINC) Canceled RH TYPE Result Comment: This is a corrected result. Previous value was POS, verified at 09/21/2017 11:02 LAB ABSC(LOINC) ANTIBODY Canceled SCREEN Result Comment: This is a corrected result. Previous value was NEG, verified at 09/21/2017 11:03 Performed By: #### T+S #### [facility] [address] [place] [address] PATIENT PROFILE - OB Observed: 09/21/2017 Status: UNK Source: [place] [id number] 2:26 [facility] REPOSITORY Profile: Initial Info: How to be Addressedrose Spoken Language PreferredEnglish Source of Informationpatient Are you currently using the Personal Electronic Health Record or [employer] [email or web address] Are you interested in learning more about [facility] for the management of your healthnot at this time Reason for admission this visitother diagnosis early [facility] Belongingsremains with patient Patient Belongings Remaining with Patientcell phone/electronics; clothing; vision aids Medications Brought to Hospitalno Info: Gravida2 Term Deliveries1 Deliveries0 Abortions0 Living Children1 Patient stated [id number] Calculation of EGA based on patient stated EDD12 Is care information applicable this patient/visit?not yet Current Risksnone Testsultrasound Previous Delivery (20 weeks or greater)yes First Delivery Complications (Oldest Child/Children)preeclampsia Is plan applicable this patient/visit?not yet Is information applicable this patient/visit?not yet Is feeding plan applicable this patient/visit?not yet General Health: Weight in tto611 pound(s) Weight in kg57.1 kilogram(s) Weight Methodactual (measured) Scale Typestanding Is weight gain information applicable this patient/visit?yes Prepregnancy Weight (lb)110 pound(s) Total Weight Gain (lb)16 pound(s) Height in feet5 feet Height in inches0 inch(es) Height in cm152.4 centimeter(s) Height Methodstated BMI (kg/m2)24.584 square meter Patient or Family Member Reaction to Anesthesiano previous reaction Blood Avoidance/Restrictionsnone Previous Transfusion Reactionno Rsp Based Care: How would you like to participate in your care?control pain What is the number one concern for you during this hospitalization?pain control for headache What is the most important thing we can do to support you during this hospitalization?decrease pain Is there anything we need to know to best care for you?n/a Substance: Current or Former Substance Use never: e-Cigarette/Vaping, Alcohol, Street Drugs YES: Cigarette/Tobacco Tobacco Cessation Education (provide if tobacco use within the last 12 mos) patient declined Health Mgmt: Symptoms/Conditions Managed at Homegastrointestinal Gastrointestinal Managementmanaged Barriers to Managing Healthnone Relationship/Environ: Primary Source of Support/Comfortspouse Lives Withspouse Resource/Environmental Concernsnone [facility] Anticipated at Transitionnone Information Review: ? Allergies, Home Meds and Significant Events have been Reviewed and Verified with Patient/Familyno ALLERGY, INTOLERANCE, ADVERSE EVENT: Allergies: ? No Known Allergies: Active Electronic Signatures: Dania Forte (CORTNEY) (Signed 21-Sep-2017 03:44) Authored: Profile, Additional Information Last Updated: 21-Sep-2017 03:44 by Dania Forte (CORTNEY) DISCHARGE PROFILE2 Observed: 09/21/2017 Status: [facility] Source: [place] 2:25 [facility]ITORY Discharge Orders: Anticipated Discharge Date: ? Anticipated Discharge [id number] Triage OB: Activity: Return to normal activity as tolerated. May shower. Call Provider If: Contractions or cramps become more frequent than 8 in one hour or 4 in 20 minutes. Regular painful contractions every 5 minutes or less for one hour. Time your contractions from the beginning of one to the beginning of the next.. Pressure in your vagina or lower abdomen that may feel like the baby is pushing down. Period-like cramps or low dull backache that may come and go. Abdominal cramps that may be accompanied by diarrhea. Gush of fluid or blood from your vagina (it is normal to have spotting after vaginal exam or intercourse). Change in the type or amount of vaginal discharge. Your baby is not moving as much as usual. Temperature greater than 100.4(F) orally. Severe headache which is not relieved in 30 minutes after taking Tylenol (Acetaminophen). Blurry vision or spots before your eyes. Severe heartburn or pain on the upper right side of your abdomen that is not relieved by an antacid. Signs of Depression. Examples include: 1. Persistent sadness 2. Frequent crying 3. Sleep problems 4. Excessive worrying 5. Feeling unable to cope. Diet: Regular. Follow-Up - OB Provider: ? Physician/Dept/ServiceOB Provider ? CommentsFollow up with golf club head inspector and adjuster as scheduled. Provider FINAL REVIEW of Orders: Final Review: ? Final Review of Medication Reconciliation and Orders Completedby Physician ? Reviewing ProviderCamryn Figueroa MD (Resident) at 22-Sep-2017 09:59:32 Appointments: Follow-Up Appointment 01: ? Physician/Dept/Christel FRIEDMAN-[facility]SH[facility] OB ? Reason for ReferralPRENATAL VISIT ON Monday09-25-17 ? CommentsPLEASE KEEP THIS APPOINTMENT- DR FRIEDMAN WILL REVIEW YOUR HOSPITAL RECORDS & DISCUSS PLAN & IF MFM FOLLOW UP WITH US IS NEEDED WITH YOU AT YOUR APPOINTMENT Other Clinician Instructions: Other Instructions: ? Nursing InstructionsCall your OB provider for contractions (tightening, balling up) more than 4-6 times an hour; constant menstrual- like cramps in your lower belly; low, dull backache different from what you normally have; increased pressure or pain in your pelvis, lower belly, back or thighs; increased vaginal discharge or mucus-like watery or bloody discharge; red vaginal bleeding; leaking amniotic fluid (water breaks); chills or fever of 100.4 F or above; severe headache that does not go away; blurry vision; feeling that something is not right; feeling depressed or unable to cope ? Other Clinician InstructionsA few days after your discharge, one of our care coordinators, Melanie or Mishel, will be calling you to see how things have been going at home. This phone call also gives you the opportunity to clarify any information on your discharge instructions or ask any questions that may have come up since leaving the hospital. Electronic Signatures: Camryn Figueroa (Resident)) (Signed 22-Sep-2017 09:59) Authored: Discharge Orders, Triage OB, Provider FINAL REVIEW of Orders Melanie Olivares (RN) (Signed 21-Sep-2017 11:19) Authored: Other Clinician Instructions Oscar Carreno (CLIN COOR) (Signed 22-Sep-2017 10:57) Authored: Appointments Dania Forte (CORTNEY) (Signed 21-Sep-2017 02:26) Authored: Other Clinician Instructions, [facility] Form - Key Account Executive Summary Last Updated: 22-Sep-2017 10:57 by Oscar Carreno (CLIN COOR) DISCHARGE PLANNING Observed: 09/21/2017 Status: UNK Source: [place] 2:24 AM [facility] REPOSITORY Discharge Needs Assessment: ? Discharge Planning Assessment [id number] Discharge Planning: Discharge Planning: Date and Time: 09/21/2017 0208 Nursing Note/Admission/Health Maintenance: D: Patient admitted to the EQUIPMENT MAINTENANCE TECHNICIAN unit from [place] Patient admitted for or s/p neuro consult Patient lives at home Patient was independent with ambulation and ADL's prior to admission. Patient's caregiver/help after discharge will be family Home going needs anticipated at this time: none Upon arrival, admitting assessment completed. See flowsheets. Stable upon admission. Discharge folder handouts and/or brochures given to patient/caregiver and reviewed with them. E: Discharge planning initiated. P: Continue to assess home going/discharge needs. Coordinate with Coal Chute Worker as needed. Signature: Nneka BARR Date and Time: 09/22/17 @ 1300 Nursing Note/Discharge: D: According to plan, patient discharged to home with family Instructions printed and reviewed, see Discharge Instructions sheet. Teaching provided on new medications, self care, signs and symptoms to report, PI sheets, and follow-up appointment. Patient verbalized understanding and denies any questions at time of discharge. Patient instructed to call /REUBEN with any additional questions after discharge. E: Discharge teaching complete and patient is prepared for discharge. P: Patient sent home with written and verbal instructions via transport in stable condition. Signature: Harriett Renteria RN Final Disposition/Discharge: Disposition/Discharge Information: Discharge/Transfer Information: ? Discharge/Transfer Date/[id number] 21:07 ? Discharged Accompanied Bysignificant other/partner ? Discharge Modeambulatory ? Transportation Methodprivate car ? Final DispositionHome Electronic Signatures: Stefany Whiting I (RN) (Signed 22-Sep-2017 21:07) Authored: Final Disposition/Discharge Harriett Renteria (RUSLAN) (Signed 22-Sep-2017 19:26) Authored: Discharge Planning Note, Final Disposition/Discharge Dania Forte (RN) (Signed 21-Sep-2017 02:25) Authored: Discharge Planning Note Last Updated: 22-Sep-2017 21:07 by Stefany Whiting I (RN) EMERGENCY DEPARTMENT Observed: 09/21/2017 Status: F Source: [place] 1:04 AM [facility] [place] [facility] Medical Records Department [address] [place] [address] Emergency Department Summary 09/20/17 2317 MR#: [id number] Acct: [id number] Name: ALEXOliALY Cory Rep #: [id number] : 1990 27 From: Henrietta Samayoa MD PCP: Care Physician, No Primary Status: DEP ER - ER Visit Summary Date of Service: 09/20/17 Chief Complaint: Headache, dizzy, abdominal pain History of Present Illness: The patient is a 27 F who is currently 9-10 weeks . She complains of nausea and vomiting. She does complain of left frontal headache and states she had some vision changes earlier today that are now resolved. She is also complaining of left-sided abdominal pain and left back pain. She denies dysuria. She denies fever. Past history significant for headaches, Crohn's disease, and preeclampsia with her previous . Her EQUIPMENT MAINTENANCE TECHNICIAN is with in [place]. Physical Examination: Vital signs are unremarkable. Patient's lying in a darkened room. She is in no acute distress. Head and neck examination is unremarkable. There is no meningismus. Heart is regular rate and rhythm. Lung sounds are clear. Abdomen is soft with tenderness in the left abdomen. No guarding or rebound noted. Hypoactive bowel sounds are present. She has mild left CVA tenderness. No skin rash or lesions are noted. Neuro exam reveals no focal deficits. Test Results: CBC was a white count 11.2 with normal differential. Chemistry studies normal. LFTs and lipase are normal. Urinalysis shows 5-10 white cells and 5-10 epithelial cells, however she does have 3+ bacteria. Urine culture was sent. Emergency Department Course and Treatment: Patient was given morphine, Tylenol, Zofran, and IV fluids. Patient was sent for CT of the head with IV contrast. I received a phone call from the radiologist with concern for possible dural venous thrombosis on the left. He describes a 3-4 mm filling defect. There is no evidence of hemorrhage or infarct. Test results were discussed with Dr. Paredes, on-call for the patient's EQUIPMENT MAINTENANCE TECHNICIAN. He advises that patient needs to be in a facility with neurology as well as maternal- medicine, and he does not have that available at [place]. After speaking with patient she would prefer to stay with and go to their main campus. I spoke with Dr. Lara, EQUIPMENT MAINTENANCE TECHNICIAN, and patient has been accepted in transfer. She will speak with their maternal medicine doctors regarding anticoagulant and call me back if I am to start something here. Treatment Plan: [] Disposition: Transfer Impression: 1. First trimester 2. Dural venous thrombosis This note was generated with [employer] dictation software. It may contain incorrect words, spelling, and punctuation that were not noted in review of the chart prior to signing ED Disposition - Plan for ED Patient: Chief Complaint: General Illness Referrals: Care Physician,No Primary [Primary Care Provider] - What to do if you have Problems For any increased pain, shortness of breath, bleeding, nausea or vomiting, chest pain, or any unexpected problems, contact your Primary Care Provider. Call [facility] ([phone]) or report to the closest Emergency Room. Call 911 if necessary. 09/21/17 0104 <Electronically signed by Henrietta Samayoa MD> Date Henrietta Samayoa MD Cosigner Signature (If Indicated): Date CC: No Primary Care Physician BRAIN/HEAD W/WO Observed: 09/20/2017 Status: F Source: [place] CONTR[place] 9:38 PM [facility] [place] [facility] Imaging Services [address] [place] [address] Brain/Head W/WO Contrast MR#: [id number] Acct: [id number] Name: ALY GUY Rep #: [id number] : 1990 F 27 From: Massimo Sutton MD PCP: Care Physician, No Primary Status: REG ER Study: Brain/Head W/WO Contrast Date of Exam: 09/20/17 Exam# [id number] Ordering Dr: Henrietta Samayoa MD STUDY: CT BRAIN WITH AND WITHOUT CONTRAST REASON FOR EXAM: Female, 27 years old. . Headache. RADIATION DOSAGE (If Supplied By Facility): CTDIvol = ( 60.81 ) mGy, DLP = ( 1997.33 ) mGycm TECHNIQUE: Transaxial CT imaging of the brain was performed pre and post contrast administration. The examination was performed with intravenous administration of 75 ml of Isovue 300 contrast material. Individualized dose optimization techniques were used for this CT. COMPARISON: None. FINDINGS: Normal soft tissue structures. Normal calvarium. Normal size ventricles and extra-axial spaces for the patient's age. Normal white matter tracts of the cerebral hemispheres. Normal basal ganglia and thalami. Normal brainstem. Normal cerebellum. There is no intracranial hemorrhage. There are no findings of an acute ischemic infarction. Normal visualized paranasal sinuses There is no mass or abnormal enhancement. There is 0.4 x 0.3 cm diminished enhancement region in the left transverse sinus with possible nonocclusive thrombus, series [address]/Brain/Head W/WO Contrast IMPRESSION: Dural venous sinus thrombosis is suggested on the left. No hemorrhage or focal infarct is seen. N.B. : The above information has been verbally conveyed by Massimo Sutton MD to Henrietta Samayoa on 09/20/2017 22:26:35 (ET). Electronically Signed: Massimo Sutton MD at 22:23 EDT , Service support , CC: No Primary Care Physician; Henrietta Samayoa MD Executive Administrative Assistant: Signed URINALYSIS, COMPLETE Collected: 09/20/2017 Status: F Source: [place] 9:00 PM [facility] [place] Order Comment: How was Urine Obtained? CLEAN CATCH TYPE CODE TESTS RESULT OUT OF RANGE REFERENCE UNITS LAB L400.3000 Yellow COLOR Normal Yellow LAB L400.3050 Clear Normal CLARITY Clear LAB L400.3200 Normal mg/dl Normal GLUCOSE, UR Normal LAB L400.3300 Negative mg/dL Normal BILIRUBIN URINE Negative LAB L400.3400 Negative mg/dl Normal KETONE UR Negative LAB L400.3465 1.002-1.030 Normal SP.GR. DIPSTX 1.015 LAB L400.3550 5.0 - 8.0 pH UR Normal 6.5 LAB L400.3600 Negative mg/dl PROT Normal DIPSTX Negative LAB L400.3700 Normal mg/dl Normal UROBILI Normal LAB L400.3750 Negative Normal NITRITE UR Negative LAB L400.3780 Negative /ul High 25 OCCULT BLOOD-UR LAB L400.3800 Negative /ul High LEUK ESTERASE 100 LAB L400.4050 0-5 /hpf WBC Normal 5-10 SEEN LAB L400.4100 0-5 /hpf Normal RBC-UA 0-5 SEEN LAB L400.4150 5-10 /hpf SQUAM Normal EPI 5-10 SEEN LAB L400.4300 None Seen /hpf 3+ Normal BACTERIA LAB L400.4350 <or=2+ /hpf 0 Normal MUCUS, URINE SEEN Performed By: #### L400.0001 #### [facility] [place] [facility] [address] [place], [place], [id number] CBC W/DIFF, AUTOMATED Collected: 09/20/2017 Status: F Source: [place] 8:[place] [facility] [place] TYPE CODE TESTS RESULT OUT OF RANGE REFERENCE UNITS LAB L100.1000 4.4-11.0 K/mm3 High WBC 11.2 LAB L100.1200 4.2-5.4 M/mm3 Normal RBC 4.47 LAB L100.1300 12.0-15.0 g/dl Normal HGB 13.1 LAB L100.1400 37-47 % Normal HCT 37.6 LAB L100.1500 81-99 fL Normal MCV 84.1 LAB L100.1600 27.0-32.0 pg Normal MCH 29.3 LAB L100.1700 32-36 g/gl Normal MCHC 34.8 LAB L100.1810 11.6-14.6 % Normal RDW CV 13.0 LAB L100.1820 35.1-43.9 fl Normal RDW SD 39.9 LAB L100.1900 150-450 K/mm3 Normal PLT 218 LAB L100.2000 6.2-12.0 fl Normal MPV 9.1 LAB L100.2100 47-70 % Normal NEUT% 67.3 LAB L100.2200 19-41 % Normal LY% 27.2 LAB L100.2300 0-10 % Normal MONO% 4.1 LAB L100.2400 0-5 % Normal EO% 1.0 LAB L100.2500 0-1 % Normal BASO% 0.1 LAB L100.2550 0.0-0.9 % Normal IM GRAN % 0.300 Result Comment: IG% - Immature Granulocytes (promyelocytes, myelocytes and metamyelocytes) > 1% indicates that a LEFT SHIFT is Present. LAB L100.2620 2.0-7.7 X10 3/uL Normal Absolute Neut 7.5 LAB L100.2720 0.83-4.51 X10 3/ul Normal Absolute Lymph 3.03 Performed By: #### L100.0100 #### [facility] [place] [facility] [address] [place], [address] BASIC METABOLIC Collected: 09/20/2017 Status: F Source: [place] PROFILE ([facility]) 8:[facility] PM [facility] [place] TYPE CODE TESTS RESULT OUT OF RANGE REFERENCE UNITS LAB L501.0100 74-106 mg/dL Normal GLU 84 Result Comment: Please note revised GLUCOSE reference range effective 2017. LAB L501.1000 7-18 mg/dL Normal BUN 7 LAB L501.1100 0.55-1.02 mg/dL Normal CREAT,SERUM 0.60 Result Comment: The validity of the calculated GFR AND GFRAA in patients over 70 years has not been determined. Clinical correlation is essential. LAB L501.1110 >60 mL/min Normal EST GFR 129 Result Comment: Non- GFR Calc LAB L501.1115 >60 mL/min Normal EST GFR - AA 156 Result Comment: GFR Calc LAB L501.1255 ml/min Normal Estimated CRCL 102.06 LAB L501.1300 10-20 RATIO BUN/CRE Normal 11.7 LAB L501.2200 8.5-10 mg/dL .1 CA Normal 8.8 LAB L501.5300 136-14 mmol/L 5 NA Normal 137 LAB L501.5600 3.5-5. mmol/L 1 K Normal 3.9 LAB L501.5900 98-107 mmol/L CL Normal 106 LAB L501.6100 21.0-3 mmol/L 2.0 CO2 Normal 23.0 LAB L501.6200 5-15 GAP Normal 8 Performed By: #### L500.2500, L500.3400, L501.2450 #### [facility] [place] [facility] [address] [place], [place], [id number] LIVER PROFILE Collected: 09/20/2017 Status: F Source: [place] 8:52 PM [facility] [place] TYPE CODE TESTS RESULT OUT OF RANGE REFERENCE UNITS LAB L501.1500 6.4-8.2 g/dL Normal T PROT 6.9 LAB L501.1800 3.2-5.0 g/dL Normal ALB 3.5 LAB L501.1950 2.2-4.2 g/dL Normal GLOB 3.4 LAB L501.4100 15-37 U/L Normal AST 23 LAB L501.4305 45-117 U/L Low ALK P 41 LAB L501.4405 13-56 U/L Normal ALT 24 LAB L501.4600 0.20-1.00 mg/dL Normal T BILI 0.30 LAB L501.4700 0.00-0.30 mg/dL Normal D BILI 0.07 Performed By: #### L500.2500, L500.3400, L501.2450 #### [facility] [place] [facility] [address] [place], [place], [id number] LIPASE Collected: 09/20/2017 Status: F Source: [place] 8:52 PM [facility] [place] TYPE CODE TESTS RESULT OUT OF RANGE REFERENCE UNITS LAB L501.2450 73-393 U/L Normal LIPASE 113 Performed By: #### L500.2500, L500.3400, L501.2450 #### [facility] [place] [facility] [address] [place], [address] PROGRESS Observed: 09/07/2017 Status: COMPLETED Source: [place] 8:02 PM [facility] REPOSITORY HNO ID: [id number] Author: Jeni Adrian) Maurice Service: (none) Author Type: Physician Civil Preparedness Coordinator Type: Progress Notes Filed: 09/07/2017 8:12 PM Note Text: Subjective HPI Pt presents with cuts and crusting on the corners of her mouth for 2 months. She has intermittently tried triple antibiotic ointment and carmex which did provide some relief. She is also 10 weeks . No other medical problems. Review of Systems HENT: Crusting in corners of mouth All other systems reviewed and are negative. No past medical history on file. Current Outpatient Prescriptions: mupirocin (BACTROBAN) 2 % ointment Apply 1 application to affected area three times daily for 10 days. Location:angle of the mouth Disp: 15 g Rfl: 0 No current facility-administered medications for this visit. No past surgical history on file. No family history on file. Social History Substance Use Topics - Smoking status: Current Every Day Smoker - Smokeless tobacco: Never Used - Alcohol use Not on file BP 104/72 Pulse 80 Temp 37 ?C (98.6 ?F) (Tympanic) Resp 16 Wt 53.8 kg (118 lb 9.6 oz) Objective Physical Exam Constitutional: She is oriented to person, place, and time and well-developed, well-nourished, and in no distress. HENT: Head: Normocephalic and atraumatic. Pt has erythema and cracking of the angles of the mouth bilaterally. No discharge. No vesicles. Consistent with angular chelitis. Cardiovascular: Normal rate, regular rhythm and normal heart sounds. Pulmonary/Chest: Effort normal and breath sounds normal. Neurological: She is alert and oriented to person, place, and time. Skin: Skin is warm and dry. Psychiatric: Affect and judgment normal. Nursing note and vitals reviewed. ASSESSMENT/PLAN: 1. Angular cheilitis - ICD9: 528.5, ICD10: K13.0 I swabbed the rash and started on mupirocin topically . Instructed to use aquaphor in between the mupirocin as well. If worsening symptoms or no improvement follow up with pcp. - MUPIROCIN 2 % TOPICAL OINTMENT - WOUND CULTURE AND GRAM STAIN Jeni Garsia PA-C CNOV Observed: 09/07/2017 Status: COMPLETED Source: [place] 7:15 PM [facility] REPOSITORY Office Visit (WSTR) ALY GUY ([id number]) 1990 F Date Time Provider Department 09/07/17 7:15 PM JENI GARSIA (JENNYFER) WSTR During your visit today, we recorded the following information about you: Temperature Pulse Respiration Blood pressure 98.6 degrees 80/minute 16/minute 104/72 Weight 53.8 kg Jeni Garsia PA-C 09/07/2017 8:12 PM Signed Subjective HPI Pt presents with cuts and crusting on the corners of her mouth for 2 months. She has intermittently tried triple antibiotic ointment and carmex which did provide some relief. She is also 10 weeks . No other medical problems. Review of Systems HENT: Crusting in corners of mouth All other systems reviewed and are negative. No past medical history on file. Current Outpatient Prescriptions: mupirocin (BACTROBAN) 2 % ointment Apply 1 application to affected area three times daily for 10 days. Location:angle of the mouth Disp: 15 g Rfl: 0 No current facility-administered medications for this visit. No past surgical history on file. No family history on file. Social History Substance Use Topics - Smoking status: Current Every Day Smoker - Smokeless tobacco: Never Used - Alcohol use Not on file BP 104/72 Pulse 80 Temp 37 ?C (98.6 ?F) (Tympanic) Resp 16 Wt 53.8 kg (118 lb 9.6 oz) Objective Physical Exam Constitutional: She is oriented to person, place, and time and well-developed, well-nourished, and in no distress. HENT: Head: Normocephalic and atraumatic. Pt has erythema and cracking of the angles of the mouth bilaterally. No discharge. No vesicles. Consistent with angular chelitis. Cardiovascular: Normal rate, regular rhythm and normal heart sounds. Pulmonary/Chest: Effort normal and breath sounds normal. Neurological: She is alert and oriented to person, place, and time. Skin: Skin is warm and dry. Psychiatric: Affect and judgment normal. Nursing note and vitals reviewed. ASSESSMENT/PLAN: 1. Angular cheilitis - ICD9: 528.5, ICD10: K13.0 I swabbed the rash and started on mupirocin topically . Instructed to use aquaphor in between the mupirocin as well. If worsening symptoms or no improvement follow up with pcp. - MUPIROCIN 2 % TOPICAL OINTMENT - WOUND CULTURE AND GRAM STAIN Jeni Garsia PA-C Referring Provider: SELF [[id number]] Allergies As of Date: 09/07/2017 (No Known Allergies) Date Reviewed: 09/07/2017 Reviewed by: Seble Wolf LPN - Fully Assessed Reason for Visit: sores at sides of mouth [Other] Cmt: x 2 month and they won't heal Primary Visit Diagnosis:Angular cheilitis [K13.0] Order(s):mupirocin (BACTROBAN) 2 % ointmentApply 1 application to affected area three times daily for 10 days. Location:angle of the mouthDisp: 15 gRfl: 0 WOUND CULTURE AND GRAM STAIN [SQWCUL] Order #: [id number] Prescriptions as of 09/07/2017 Sig: MUPIROCIN 2 % TOPICAL OINTMENT Apply 1 application to affect* Problem List As Of Date: 09/07/2017 (None) Prescriptions ordered this encounter Disp Refills Start End MUPIROCIN 2 % TOPICAL OINTMENT 15 g 0 09/07/2017 09/17/2017 Route: TOPICAL Sig: Apply 1 application to affected area three times daily for 10 days. Location:angle of the mouth Encounter Status:Closed by JENI GARSIA PA-C on 09/07/17 WOUND Observed: 09/07/2017 Status: F Source: [place] CULTURE/STAIN 5:05 PM [facility] REPOSITORY Sp. Request/Comment: - Swab Smear Result - Rare Gram positive cocci --> ABNORMAL ALERT Rare --> ABNORMAL ALERT Gram positive bacilli --> ABNORMAL ALERT No Polymorphonuclear Leukocytes Culture Result - Few Staphylococcus aureus --> ABNORMAL ALERT Moderate --> ABNORMAL ALERT Streptococcus agalactiae (Group B streptococcus) --> ABNORMAL ALERT Susceptibility testing not performe d on beta hemolytic streptococci due to predictable susceptibility to penicillin and other beta lactams. For testing, call Microbiology within 72 hours. --> ABNORMAL ALERT Few Mixed oral rosemarie ORGANISM: Staphylococcus aureus METHOD: Minimum inhibitory concentration(Vitek) Antibiotic Interp SARITA Status Erythromycin SUSCEPTIBLE 0.5 F Clindamycin SUSCEPTIBLE 0.25 F Tetracycline SUSCEPTIBLE <=1 F Vancomycin SUSCEPTIBLE <=0.5 F Oxacillin SUSCEPTIBLE 0.5 F Oxacillin susceptible staphylococci are susceptible to other penicillinase stable penicillins, beta lactam/beta lactamase inhibitor combinations, anti staphyloccal cephems, and carbapenems. Trimeth sulfameth SUSCEPTIBLE <=10 F Gentamicin SUSCEPTIBLE <=0.5 F Rifampin SUSCEPTIBLE <=0.5 F Rifampin should not be used alone for antimicrobial therapy. Doxycycline SUSCEPTIBLE <=0.5 F Performed By: #### WCUL #### [facility] [address] [place], [place] [address] 12 LEAD ELECTROCARDIOGRAM Observed: 08/31/2017 Status: F Source: [place] 2:33 PM [facility] [place] [facility] Cardiovascular Services [address] [place] [address] 12 Lead EKG 08/30/17 0229 MR#: [id number] Acct: [id number] Name: ALY GUY Cory Rep #: [id number] : 1990 27 From: Fernando Jones MD Attending Dr: Status: DEP ER Ordering Dr: Henrietta Samayoa MD Date: 08/30/17 Location: ED Sex: F C Admitted: Test Reason : CP Blood Pressure : / mmHG Vent. Rate : 073 BPM Atrial Rate : 073 BPM P-R Int : 126 ms QRS Dur : 076 ms QT Int : 392 ms P-R-T Axes : 040 074 048 degrees QTc Int : 431 ms Normal sinus rhythm with sinus arrhythmia Normal ECG Confirmed by FERNANDO JONES MD ([id number]), editor producer BAM LARA ([id number]) on 08/31/2017 2:33:40 PM Referred By: TOMMY Confirmed By:FERNANDO JONES MD 08/31/17 1433 Date Fernando Jones MD CC: No Primary Care Physician; Henrietta Samayoa MD Signed EMERGENCY DEPARTMENT Observed: 08/30/2017 Status: F Source: [place]EM[place] SUMMARY 5:40 AM [facility] Medical Records Department [address] [place] [address] Emergency Department Summary 08/30/17 0252 MR#: [id number] Acct: [id number] Name: ALY GUY Rep #: [id number] : 1990 27 From: Henrietta Samayoa MD PCP: Care Physician, No Primary Status: DEP ER - ER Visit Summary Date of Service: 08/30/17 Chief Complaint: Chest and abdominal pain History of Present Illness: The patient is a 27 F who is currently 8 weeks . She also has a history of Crohn's disease. Patient developed chest and abdominal pain after getting off work at 11 PM last night. Family states that she waited for over an hour for a cab to arrive and they never showed, increasing her anxiety. She has not had nausea, vomiting, or diarrhea. She points to the midsternal area of her chest as well as to the epigastric area and describing her areas of pain. Patient is currently 8 weeks . She had positive test and an ultrasound showing intrauterine in a center. She has not yet seen an EQUIPMENT MAINTENANCE TECHNICIAN. She had one prior that was complicated by preeclampsia late in the course. Patient was life flighted and had an emergency at 31 weeks. Physical Examination: Blood pressure is 126/84, temperature 98.0, heart rate 74, respiratory rate 14, pulse ox 100% on room air. Patient sitting upright in bed. She has her eyes squinted shut tight. Heart is regular rate and rhythm. Lung sounds are clear. Abdomen is soft with tenderness in both epigastric area as well as left lower quadrant. Hypoactive bowel sounds are noted. Neuro exam reveals no focal deficits. Test Results: EKG is sinus at 73 with no sign of acute ischemia. CBC was a white count 11.4 with normal differential. Chemistry studies normal. LFTs and lipase normal. Urinalysis normal. Emergency Department Course and Treatment: Patient was given a dose of morphine, Zofran, Pepcid, and IV fluids. On repeat evaluation she is resting comfortably. Vital signs have remained stable throughout. I did not perform a chest x-ray to avoid the radiation during . Lung sounds are equal bilaterally and her oxygen saturation is normal. I did discuss with the patient I think the majority of her symptoms are secondary to her anxiety. She had been on Ativan in the past but is not on it currently. I recommended follow-up with the counseling center to help with her anxiety throughout the . Treatment Plan: [] Disposition: Discharge Impression: 1. Atypical chest pain 2. Anxiety This note was generated with [employer] dictation software. It may contain incorrect words, spelling, and punctuation that were not noted in review of the chart prior to signing ED Disposition - Plan for ED Patient: Chief Complaint: Chest Pain Referrals: NurseDANYEL [PHYSICIAN SPECIAL EDUCATION EDUCATIONAL ASSISTANT] - What to do if you have Problems For any increased pain, shortness of breath, bleeding, nausea or vomiting, chest pain, or any unexpected problems, contact your Primary Care Provider. Call [facility] ([phone]) or report to the closest Emergency Room. Call 911 if necessary. 08/30/17 0540 <Electronically signed by Henrietta Samayoa MD> Date Henrietta Samayoa MD Cosigner Signature (If Indicated): Date CC: No Primary Care Physician DISCHARGE INSTRUCTION Observed: 08/30/2017 Status: F Source: [place] 3:43 AM [facility] [place] [facility] Medical Records Department [address] [place] [address] Discharge Instruction 08/30/17341 MR#: [id number] Acct: [id number] Name: ALY GUY Rep #: [id number] : 1990 27 From: Henrietta Samayoa MD PCP: Care Physician, No Primary Status: REG ER ED Disposition - Plan for ED Patient: Disposition: Home or Assisted Living Chief Complaint: Chest Pain Instructions: ED Chest Pain Atypical Unkn Cause, ED Stress React Referrals: Ellyn Rader MD [STAFF PHYSICIAN] - Adele Mitchell MD [STAFF PHYSICIAN] - Brittany Bhardwaj MD [STAFF PHYSICIAN] - What to do if you have Problems For any increased pain, shortness of breath, bleeding, nausea or vomiting, chest pain, or any unexpected problems, contact your Primary Care Provider. Call [facility] ([phone]) or report to the closest Emergency Room. Call 911 if necessary. 08/30/17342 <Electronically signed by Henrietta Samayoa MD> Date Henrietta Samayoa MD Cosigner Signature (If Indicated): Date CC: No Primary Care Physician CBC W/DIFF, AUTOMATED Collected: 08/30/2017 Status: F Source: [place] 2:40 AM [facility] [place] TYPE CODE TESTS RESULT OUT OF RANGE REFERENCE UNITS LAB L100.1000 4.4-11.0 K/mm3 High WBC 11.4 LAB L100.1200 4.2-5.4 M/mm3 Normal RBC 4.67 LAB L100.1300 12.0-15.0 g/dl Normal HGB 14.1 LAB L100.1400 37-47 % Normal HCT 39.9 LAB L100.1500 81-99 fL Normal MCV 85.4 LAB L100.1600 27.0-32.0 pg Normal MCH 30.2 LAB L100.1700 32-36 g/gl Normal MCHC 35.3 LAB L100.1810 11.6-14.6 % Normal RDW CV 13.2 LAB L100.1820 35.1-43.9 fl Normal RDW SD 40.9 LAB L100.1900 150-450 K/mm3 Normal PLT 271 LAB L100.2000 6.2-12.0 fl Normal MPV 9.2 LAB L100.2100 47-70 % Normal NEUT% 63.1 LAB L100.2200 19-41 % Normal LY% 28.3 LAB L100.2300 0-10 % Normal MONO% 6.3 LAB L100.2400 0-5 % Normal EO% 1.6 LAB L100.2500 0-1 % Normal BASO% 0.3 LAB L100.2550 0.0-0.9 % Normal IM GRAN % 0.400 Result Comment: IG% - Immature Granulocytes (promyelocytes, myelocytes and metamyelocytes) > 1% indicates that a LEFT SHIFT is Present. LAB L100.2620 2.0-7.7 X10 3/uL Normal Absolute Neut 7.2 LAB L100.2720 0.83-4.51 X10 3/ul Normal Absolute Lymph 3.21 Performed By: #### L100.0100 #### [facility] [place] [facility] [address] [place], [address] URINALYSIS, COMPLETE Collected: 08/30/2017 Status: F Source: [place] 2:40 AM [facility] [place] Order Comment: How was Urine Obtained? CLEAN CATCH TYPE CODE TESTS RESULT OUT OF RANGE REFERENCE UNITS LAB L400.3000 Yellow COLOR Normal Yellow LAB L400.3050 Clear Normal CLARITY Sl. Cloudy LAB L400.3200 Normal mg/dl Normal GLUCOSE, UR Normal LAB L400.3300 Negative mg/dL Normal BILIRUBIN URINE Negative LAB L400.3400 Negative mg/dl Normal KETONE UR Negative LAB L400.3465 1.002-1.030 Normal SP.GR. DIPSTX 1.010 LAB L400.3550 5.0 - 8.0 pH UR Normal 7.0 LAB L400.3600 Negative mg/dl PROT Normal DIPSTX Negative LAB L400.3700 Normal mg/dl Normal UROBILI Normal LAB L400.3750 Negative Normal NITRITE UR Negative LAB L400.3780 Negative /ul Normal OCCULT BLOOD-UR Negative LAB L400.3800 Negative /ul LEUK Normal ESTERASE Negative LAB L400.4050 0-5 /hpf WBC Normal 0-5 SEEN LAB L400.4100 0-5 /hpf 0 Normal RBC-UA SEEN LAB L400.4150 5-10 /hpf SQUAM Normal EPI 0-5 SEEN LAB L400.4300 None Seen /hpf Normal BACTERIA RARE LAB L400.4350 <or=2+ /hpf 0 Normal MUCUS, URINE SEEN Performed By: #### L400.0001 #### [facility] [place] [facility] [address] [place], [place], [id number] BASIC METABOLIC Collected: 08/30/2017 Status: F Source: [place] PROFILE (BMP) 2:40 AM [facility] [place] TYPE CODE TESTS RESULT OUT OF RANGE REFERENCE UNITS LAB L501.0100 74-106 mg/dL Normal GLU 75 Result Comment: Please note revised GLUCOSE reference range effective 2017. LAB L501.1000 7-18 mg/dL Normal BUN 10 LAB L501.1100 0.55-1.02 mg/dL Normal CREAT,SERUM 0.60 Result Comment: The validity of the calculated GFR AND GFRAA in patients over 70 years has not been determined. Clinical correlation is essential. LAB L501.1110 >60 mL/min Normal EST GFR 128 Result Comment: Non- GFR Calc LAB L501.1115 >60 mL/min Normal EST GFR - AA 154 Result Comment: GFR Calc LAB L501.1255 ml/min Normal Estimated CRCL 102.06 LAB L501.1300 10-20 RATIO BUN/CRE Normal 16.6 LAB L501.2200 8.5-10 mg/dL .1 CA Normal 9.1 LAB L501.5300 136-14 mmol/L 5 NA Normal 141 LAB L501.5600 3.5-5. mmol/L 1 K Normal 3.6 LAB L501.5900 98-107 mmol/L High CL 108 LAB L501.6100 21.0-3 mmol/L 2.0 CO2 Normal 24.0 LAB L501.6200 5-15 GAP Normal 9 Performed By: #### L500.2500, L500.3400, L501.2450 #### [facility] [place] [facility] [address] [place], [place], [address] LIVER PROFILE Collected: 08/30/2017 Status: F Source: [place] 2:40 AM [facility] [place] TYPE CODE TESTS RESULT OUT OF RANGE REFERENCE UNITS LAB L501.1500 6.4-8.2 g/dL Normal T PROT 7.1 LAB L501.1800 3.2-5.0 g/dL Normal ALB 3.6 LAB L501.1950 2.2-4.2 g/dL Normal GLOB 3.5 LAB L501.4100 15-37 U/L Normal AST 22 LAB L501.4305 45-117 U/L Low ALK P 43 LAB L501.4405 13-56 U/L Normal ALT 23 LAB L501.4600 0.20-1.00 mg/dL Normal T BILI 0.30 LAB L501.4700 0.00-0.30 mg/dL Normal D BILI 0.07 Performed By: #### L500.2500, L500.3400, L501.2450 #### [facility] [place] [facility] [address] [facility] [address] [place], [place], [address] LIPASE Collected: 08/30/2017 Status: F Source: [place] 2:40 AM [facility] [place] TYPE CODE TESTS RESULT OUT OF RANGE REFERENCE UNITS LAB L501.2450 73-393 U/L Normal LIPASE 121 Performed By: #### L500.2500, L500.3400, L501.2450 #### [facility] [place] [facility] [address] [place], [address] IGP W/HPV RFX Collected: 07/13/2017 Status: F Source: WORSHIP [id number] 4:08 PM [facility] REPOSITORY Order Comment: LMP: 06/16/17 TYPE CODE TESTS RESULT OUT OF RANGE REFERENCE UNITS LAB [id number](LO INC) Normal See Ref Lab Diagnosis: Report Performed By: #### [id number] #### [facility] [employer] [address] [address] PATHOLOGY ([facility]) Observed: 07/13/2017 Status: F Source: [facility] 12:00 AM REPOSITORY FINAL GYNECOLOGIC CYTOLOGY REPORT [id number] SPECIMEN ADEQUACY Satisfactory for Evaluation. Endocervical cells/transformation zone component present. GENERAL CATEGORIZATION Epithelial Cell Abnormality DESCRIPTIVE DIAGNOSIS Atypical squamous cells of undetermined significance. COMMENT High Risk HPV was ordered and performed at [facility] Laboratory. Results are reported below in this report. A negative result is a normal result. A positive result is an abnormal result. HPV HIGH RISK NEGATIVE: The results of this test indicate the patient's specimen is NEGATIVE for the following high-risk HPV types: 16/18/31/33/35/39/45/51/52/56/58/59/66/68. RELATED LABORATORY RESULTS Ordered by: MEDRO Ord Date: 07/13/2017 Ord Time: 21:59 Test Collected Result Abnormal Range Units Specimen Name D&T Type HPV Negative NA MSC RNA, 8 High Risk The HPV test detects E6/E7 viral messenger RNA (mRNA) high- risk HPV genotypes 16,18,31,33,35,39,45,51,55,58,59,66, and 68 which are associated with cervical cancer and its precursor lesions. However, cross-reactions with other genotypes may occur. Results should be correlated with cytologic and histologic findings. Sensitivity may be affected by cellularity of specimen. CLINICAL HISTORY LMP: 06/16/2017 SPECIMEN (A) SCREENING CERVICAL/ENDOCERVICAL THIN PREP VIAL Performed at [facility], [address] [place] [address] Screened by: SOFIYA CARSON Bias Cutter Helper Signed Out by: KEVAN RAYA MD Reported: 07/20/2017 Performed By: #### LOADING MACHINE OPERATOR #### [facility] [address] [place] [address] 12 LEAD ELECTROCARDIOGRAM Observed: 04/25/2017 Status: F Source: [place] 1:17 PM [facility] [place] [facility] Cardiovascular Services [address] [place] [address] 12 Lead EKG 04/22/17 1648 MR#: [id number] Acct: [id number] Name: ALY GUY Rep #: [id number] : 1990 26 From: Judson Grant MD Attending Dr: Status: DEP ER Ordering Dr: Henrietta Samayoa MD Date: 04/22/17 Location: ED Sex: F C Admitted: Test Reason : CP Blood Pressure : / mmHG Vent. Rate : 064 BPM Atrial Rate : 064 BPM P-R Int : 114 ms QRS Dur : 088 ms QT Int : 392 ms P-R-T Axes : 057 084 065 degrees QTc Int : 404 ms Normal sinus rhythm Normal ECG Confirmed by JUDSON GRANT ([id number]), editor producer BAM LARA ([id number]) on 04/25/2017 1:17:32 PM Referred By: TAMMY Confirmed By:JUDSON GRANT 04/25/17 1317 Date Judson Grant MD CC: No Primary Care Physician; Henrietta Samayoa MD Signed ,SERUM,HCG QUALI. Collected: Status: F Source: [place]EMO 04/24/2017 4:10 PM [facility] [place] TYPE CODE TESTS RESULT OUT OF REFERENCE UNITS RANGE LAB L700.7000 0-9 Nonpreg Negative Normal HCGSQUAL NEGATIVE LAB L700.6700 =>Qualitative mIU/mL Normal HCG Qual < 1 triggr Performed By: #### L700.6800 #### [facility] [place], [address] HIV - H Collected: 04/24/2017 Status: F Source: ON[place]O 4:10 PM [facility] [place] TYPE CODE TESTS RESULT OUT OF RANGE REFERENCE UNITS LAB L3890.6005 Nonreactive Normal HIV - [facility] Non-Reactive Performed By: #### L3890.6005 #### [facility] [place], [address] EMERGENCY DEPARTMENT Observed: 04/22/2017 Status: F Source: ONEMO SUMMARY 10:57 PM [facility] [place] [facility] Medical Records Department [address] [place] [address] Emergency Department Summary 04/22/17 1659 MR#: [id number] Acct: [id number] Name: ALY GYU Rep #: [id number] : 1990 26 From: Henrietta Samayoa MD PCP: Care Physician, No Primary Status: [facility] ER - ER Visit Summary Date of Service: 04/22/17 Chief Complaint: Stress attack History of Present Illness: The patient is a 26 F reports onset of pounding heart, labored breathing, lightheadedness, and tingling around her lips approximately 20 minutes after being in a stressful situation. Patient does not want to further elaborate on this. She also is complaining of cloudy vision. She did drive herself to the emergency room. She reports that she had a couple panic attacks in the past but never required evaluation or medication. She is a past history of Crohn's disease. She does not currently have a primary care physician. Physical Examination: Blood pressure is 120/74, temperature 98, heart rate 79, respiratory rate 16, pulse ox 99% on room air. Head and neck examination is unremarkable. Heart is regular rate and rhythm. Lung sounds are clear. Abdomen is soft and nontender. Neuro exam reveals normal strength and sensation. She is somewhat anxious. Test Results: EKG reveals sinus rhythm at 64 bpm. Normal intervals and no acute ischemia is noted. Emergency Department Course and Treatment: Patient was given Ativan 0.5 mg p.o. She was observed on panel monitor with no arrhythmias noted. On repeat evaluation she is resting comfortably and symptoms are improved. She be given a prescription for 4 tabs of Ativan only. She is referred to the counseling center for follow-up. Treatment Plan: [] Disposition: Discharge Impression: Panic attack This note was generated with [employer] dictation software. It may contain incorrect words, spelling, and punctuation that were not noted in review of the chart prior to signing ED Disposition - Plan for ED Patient: Chief Complaint: Anxiety Referrals: Care Physician,No Primary [Primary Care Provider] - What to do if you have Problems For any increased pain, shortness of breath, bleeding, nausea or vomiting, chest pain, or any unexpected problems, contact your Primary Care Provider. Call [facility] ([phone]) or report to the closest Emergency Room. Call 911 if necessary. 04/22/17 4484 <Electronically signed by Henrietta Samayoa MD> Date Henrietta Samayoa MD Cosigner Signature (If Indicated): Date CC: No Primary Care Physician DISCHARGE INSTRUCTION Observed: 04/22/2017 Status: F Source: NELLA 6:41 PM [facility] REPOSITORY [facility] Medical Records Department [address] [place] [address] Discharge Instruction 04/22/17 1838 MR#: [id number] Acct: [id number] Name: ALY GUY Rep #: [id number] : 1990 From: Henrietta Samayoa MD PCP: Care Physician, No Primary Status: REG ER ED Disposition - Plan for ED Patient: Disposition: Home or Assisted Living Chief Complaint: Anxiety Instructions: ED Panic Attack Prescriptions: Lorazepam [Ativan] 0.5 mg PO BID PRN #4 tablet PRN Reason: Anxiety Referrals: Counseling,Center [GROUP OF PHYSICIANS] - As Needed What to do if you have Problems For any increased pain, shortness of breath, bleeding, nausea or vomiting, chest pain, or any unexpected problems, contact your Primary Care Provider. Call [facility] ([phone]) or report to the closest Emergency Room. Call 911 if necessary. 04/22/17 184 <Electronically signed by Henrietta Samayoa MD> Date Henrietta Samayoa MD Cosigner Signature (If Indicated): Date CC: No Primary Care Physician ALLERGIES ALLERGIES DATE TYPE / CODE NAME / CODE REACTION SEVERITY SOURCE 09/29/2017 Drug No Known Unknown Nella Allergy/416 Allergies/[id number] [facility] 466059(SNOM 388(RXNORM) [facility] ED CT) Repository Drug/872919 No Known Voodoo 003([facility] Allergies System Repository ENCOUNTERS ENCOUNTERS ADMIT/DISCHARGE ACCOUNT NUMBER ADMITTING ENCOUNTER LOCATION SOURCE CLASS 01/27/2018 [id number] [facility] ding:LAB Repository 01/26/2018/01/27/[id number] System :[facility] Repository om: [id number] 01/15/2018/01/16/[id number] ding:WPOUTRo Repository om: WP013 01/12/2018/01/13/[id number] :[facility] Repository om: Room 4 01/03/2018 [id number] [facility] ding:LAB.FUT Repository URE 12/13/2017/12/14/19 [id number] José Antonio Friedman [address] :[facility] Repository om: [id number] 11/28/2017/11/29/[id number] :[facility] Repository 11/21/2017/11/22/19 [id number] José Antonio Friedman [address] ding:. Health System Repository 11/21/2017 [id number] Ambulatory [address] [place] [address] Repository 10/31/2017/11/01/19 [id number] José Antonio Friedman [address] ding:[facility] Repository 10/31/2017/11/01/[id number] :[facility] Repository om: [id number] 10/31/2017 [id number] Ambulatory [address] [place] [address] Repository 10/09/2017 [id number] Ambulatory [facility] Repository 10/09/2017/08/13 [id number] Drew, [place] [address] [facility] ding:.[facility] Health System Repository 10/09/2017 [id number] Ambulatory [address] [place] [address] Repository 10/06/2017/10/07/[id number] System :[facility] Repository 10/05/2017/10/06/[id number] System :[facility] Repository 10/03/2017/10/04/[id number] System :[facility] Repository om: [id number] 09/29/2017/09/30/19 [id number] Emergency Nella Nella[address] ding:ED Repository 09/25/2017/09/26/[id number] System :[facility] Repository 09/21/2017 [id number] Ambulatory [facility] Repository 09/21/2017/09/23/19 [id number] LEISENRING, [facility]: [address]oom: [place] [id number]: Repository [id number] 09/20/2017/09/22/19 [id number] Emergency [place] Nella [address] [place] [address] ding:ED Repository 09/07/2017/09/09/19 [id number] Ambulatory [address] Repository 09/04/2017/09/05/19 [id number] José Antonio Friedman [place] [address] A [facility] System :[facility] Repository om: [id number] 08/30/2017/08/31/19 [id number] Emergency [place] Nella [address] [place] [address] ding:ED Repository 07/13/2017/07/14/19 [id number] Adriana Pacheco [address] ding:[facility] Repository 07/13/2017/07/14/19 [id number] Ambulatory [address] System :[facility] Repository om: Room 3 07/04/2017/07/05/19 [id number] Adriana Pacheco Ambulatory [address] System :[facility] Repository om: Room 1 06/22/2017/06/23/19 [id number] [place], Ambulatory [place] [address] [address] eBuilding:[facility] oom: Room 2 Repository 04/25/2017/04/25/19 [id number] Ambulatory BMSBuilding: Nella [facility] Repository 04/24/2017/04/24/19 [id number] Ambulatory [address] ding:EDREF Repository 04/22/2017/04/22/19 [id number] Emergency [address] ding:ED Repository PAYERS PAYERS ENCOUNTER GUARANTOR PAYER SUBSCRIBER SOURCE 01/27/2018 ALY JOHNSONS329 Primary ALY Ray Nella [place] Insurance:CARESOURCEP ALEXSDOB: [address] Number: [id number] Hospital [address]Tkj: 330 [id number] Repository [phone] () Date:2018-01-27[address]ATTN: [place] [address]SG: 01/27/2018 Secondary NOT GIVENUNK [place] Insurance:SELF PAY [facility] Number: Effective Repository Date:2018-01-27 01/15/2018 ALY SMITH11 Primary ALY Parikhoster [address] Insurance:CARESODOMINGO CHOWOB: [address] Number: [id number] Hospital [address]Kgt: 330 [id number] Repository [phone] () Date:2018-01-15 [address]ATTN: [place] [address]QH: 01/15/2018 Secondary NOT GIVENUNK N[place] Insurance:SELF PAY [facility] Number: Effective Repository Date:2018-01-15 01/03/2018 ALY SMITH11 Primary ALY Carmen E [facility] STAP Insurance:CARESOURCEP GROVESDOB: Community [address] Number: [id number] Hospital [address]Xln: ([phone]) [id number] Repository [phone] () Date:2018-01-01 [address]ATTN: [place] [address]JR: 01/03/2018 Secondary NOT GIVENUNK [place] Insurance:SELF PAY [facility] Number: Effective Repository Date:2018-01-01 11/28/2017 ALY Ray Primary ALY CHOWOB: Insurance:1500 GROVESDOB: [facility] [id number] [facility] Repository STREETAPT Number: Effective ST[address] [place], [place] Date:2017-10-31 [place], [place] [address]Buk: [phone]) [id number] [address]Bll: () Name:CD:[id number] [phone] ()Tel: [phone]: (TI) [phone] 11/21/2017 ALY Ray Primary ALY CHOWOB: Insurance:1500 GROVESDOB: [facility] [id number] [facility] Repository STREETAPT Number: Effective [address], [place] Date:2017-10-31 [address], [place] [address]Mys: [phone] [id number]: () Name:CD:[id number] O [phone] ()Tel: [phone]: (WP) [phone] 11/21/2017 ALY GROVESDOB: Primary ALY GROVESDOB: [place] Insurance:[facility] [id number] [facility] olicy Number: E [facility] Repository [place], [place] [id number] [place] [phone]: Date:Plan [phone]: Name:HealthP O Box (HP) [address] [place] [address] (HP) [phone]: 10/31/2017 ALY Ray Primary ALY JOHNSONSDOB: Insurance:CARESOURCE [place]: [facility] E MCAIDPolicy Number: [id number] [facility] Effective [facility] Repository [place], [place] Date:2017-10-[address] [place] [address]Uya: [id number] [phone]: Name:CD:[id number] (HP) [address] [place] [address] ()Tel: [phone]: (WP) [phone] 10/31/2017 ALY Ray Primary ALY JOHNSONSDOB: Insurance:1500 GROVESDOB: [facility] [id number] [facility] CareTH PLPolicy [facility] STREETAPT Number: Effective [address], [place] Date:2017-10-[address] [place] [address]Urm: [id number]: (HP) Name:CD:[id number] O [phone] [place] [address] (HP)Tel: [phone]: (WP) 7 10/31/2017 ALY GROVESDOB: Primary ALY GROVESDOB: [place] Insurance:Caresourc [id number] [facility] Number: [facility] [place], [place] [id number] [facility] HospitalWEDMONDSON, [place] [phone]: Date:Plan [id number]: Name:HealthP O Box (HP) [address] [place] [address] () [id number]: 10/09/2017 ALY GROVESDOB: Primary ALY GROVESDOB: [place] Insurance:[facility] [id number] [place] [address] Number: [facility] [address], [place] [id number] [address], [place] [phone]: Date:Plan [id number]: Name:HealthP O Box () [address] [place] [address] () [id number]: 10/09/2017 ALY Ray Primary ALY Ray Voodoo GROVESDOB: Insurance:CARESOURCE [place]: [facility] Number: [id number] [facility] STREETAPT Date:2017-10-06 - STREETAPT [address], [place] [id number] [address] [place] [address]Hjk: ([phone]) Name:CD:[id number]: (HP) [address] [place] [address] [phone]: ([phone]) (HP) [phone] () 10/09/2017 ALY JOHNSONSDOB: Primary ALY GROVESDOB: [place] Insurance:CaresourceP [id number] [facility] Number: [facility] [id number], [place] [address]Mfq: Date:[facility] [address]Odq: Name:Health O Box () [address] [place] [address] () [id number]: 10/06/2017 ALY JOHNSONMEOB: Insurance:CARESOURCE [facility] MCAIDPolicy Number: [id number] System [place] Effective [place] Repository STREETPERRYSVICARLO Date:2017-08-29 - STRE[place]YSVICAR[place] [address]Awh: [id number] [place], [place] [address]Pkj: Name:CD:[id number] (HP) [address] [place] [address] ()Tel: ([phone]) [phone]: (WP) [phone] 10/05/2017 ALY JOHNSONSDOB: Insurance:1500 GROVESDOB: [facility] [id number] System [facility] PLPolicy [place] Repository [address]RE[address] Number: Effective [place] [address]Qoo: Date:2017-07-13, [place] [address]Hvo: [id number] (HP) Name:CD:[id number] O ()Tel: (038) [address] [place] [address] [phone] (WP) [phone]: 10/03/2017 ALY CHOWOB: Insurance:1500 GROVESDOB: [facility] [id number] [facility] Repository [address]RE[address] Number: Effective [address]RE[address], [place] Date:2017-10-03 - 502[facility], [place] [address]Rab: [phone] [phone] [phone]: (HP) Name:CD:[id number] O [phone] [place] [address] (HP)Tel: [phone]: (WP) [phone] 09/29/2017 ALY Ray [id number] Primary ALY Ray [place] [facility] Insurance:CARESOURCEP GROVESDOB: [address] olicy Number: [id number] Hospital [address]Zoz: [phone] [id number] Repository [phone] (HP) Date:2017-09-29[address]ATTN: [place] [address]VE: 09/29/2017 Secondary NOT GIVENUNK [place] Insurance:SELF PAY Community [facility] Number: Effective Repository Date:2017-09-29 09/25/2017 ALY Ray Primary ALY Ray [facility]: Insurance:[facility] Self [facility] PayPolicy Number: [id number] System [facility] Effective [facility] Repository [address]RE[address] Date:2017-09-04 - STREET [address], [place] [id number] [address] [place] [address]Dmt: (505) Name:CD:[id number]: () [phone] (HP) (WP) 09/21/2017 ALY Ray Primary ALY Ray [facility] Insurance:CaresourceP [place]: [facility] olicy Number: [id number] Repository [facility] [id number] [facility] APT Date:[facility] [address] [place] [address] Name:Health [address] [place] [address]Lbp: [phone], [place] [address]Zmm: (HP) [phone]: () [phone] 09/21/2017 ALY Ray Primary ALY Ray [facility]: Insurance:CaresourceP [place]: [facility] olicy Number: [id number] Repository [facility] [id number] [facility] [address] Date: [address], [place] Name:HealthP [address] [place] [address]Zjb: [phone], [place] [address]Byq: () [phone]: () [phone] 09/20/2017 ALY DE LA FUENTE Primary ALY [facility] E [facility] Insurance:CARESOURCEP [place]OB: [address] olicy Number: [id number] Hospital [address]Aqv: [phone]) [id number] Repository [phone] () Date:2017-09-20P [address]ATTN: [place] [address]JN: 09/20/2017 Secondary NOT GIVENUNK [place] Insurance:SELF PAY [facility] Number: Effective Repository Date:2017-09-20 09/04/2017 ALY Ray Primary ALY CHOWOB: Insurance:[facility] Self [facility] PayPolicy Number: [id number] System [facility] Effective [facility] Repository [address]RE[address] Date:2017-09-04 - [address], [place] [id number] [address] [place] [address]Mzc: (221) Name:CD:[id number] [phone]: (HP) [phone] () () 08/30/2017 ALY DE LA FUENTE Primary NOT GIVENUNK [facility] Insurance:SELF PAY [facility] [address]Qdz: (963) Number: Effective Repository [phone] () Date:2017-08-30 07/13/2017 ALY Ray Primary ALY CHOWOB: Insurance:CARESOURCE [facility] MCAIDPolicy Number: [id number] System [place] Effective [place] Repository [address] Date:2017-07-13 - [address]RE[place]YSVILL [place], [place] [address]Muo: [id number] [place], [place] [address]Nvh: Name:CD:[id number] (HP) [address], [place] (HP)Tel: [phone]: (SN) [phone] 07/13/2017 ALY Perdomoaritan [facility]: Insurance:1500 GROVESDOB: [facility] [id number] System [facility] PLPolicy [place] Repository [address] Number: Effective [address], [place] [address]Dua: Date:2017-07-04, [place] [address]Jfw: [id number] (HP) Name:CD:[id number] O (HP)Tel: (394) [address], [place] [phone] (WP) [phone]: 07/04/2017 ALY Ray [facility] ALY Ray [facility]: Insurance:1500 GROVESDOB: [facility] [id number] System [facility] Critical access hospitaly [place] Repository [address] Number: Effective [address], [place] [address]Wuj: Date:2017-06-22, [place] [address]Tsm: [id number] (HP) Name:CD:[id number] O (HP)Tel: (182) [address], [place] [phone] (WP) [phone]: 06/22/2017 ALY Ray [facility]: Insurance:1500 GROVESDOB: [facility] [id number] System [facility] [address] [place] [address]ository [place], Number: Effective [place], [place] [address]Siq: Date:2017-06-22 - [place] [address]Gmj: [id number] () Name:CD:[id number] O (HP)Tel: (672) [address] [place] [address] [phone] (EW) [address]ZB: 04/25/2017 ALY Ray [id number] Primary NOT GIVENUNK [place] Insurance:SELF PAY [facility] [address]Bdz: (165) Number: Effective Repository [phone] () Date:2017-04-25 04/24/2017 Aly Ray [id number] Primary NOT GIVENUNK [place] Insurance:SELF PAY [facility] [address]Gjo: (368) Number: Effective Repository [phone] () Date:2017-04-24 04/22/2017 Aly Ray [id number] Primary Aly Ray [place] Insurance:CARESOURCEP GrovesDOB: [facility] Number: [id number] Hospital [address]Kre: [phone]) [id number] Repository [phone] () Date:2017-04-22P [address]ATTN: [place] [address]KM: 04/22/2017 Secondary NOT GIVENUNK [place] Insurance:SELF PAY [facility] Number: Effective Repository Date:2017-04-22
== END ==
DX: Z34.92 Encounter for supervision of normal pregnancy, unspecified, second trimester (principal)
CPT/HCPCS: 36415; 85025

== ENCOUNTER → 2018-03-13 16:22 | Outpatient (CLI) | payer MEDICAID, SELFPAY ==
[2018-03-13 18:26] LABS: HIV - WCH Non-Reactive (Nonreactive)
[2018-03-17 18:38] LABS: HEPATITIS B SURFACE AG Negative (Negative); Hepatitis A AB, Total Negative (Negative); Hepatitis A IgM Antibody Negative (Negative); Hepatitis B Core AB IgM Negative (Negative); Hepatitis B Core Ab Total Negative (Negative); Hepatitis C Ab <0.1 s/co ratio (0.0-0.9)
[2018-03-18 11:38] LABS: Hep B Surface Antibodies Reactive (.)
== END ==
DX: Z20.5 Contact with and (suspected) exposure to viral hepatitis (principal)
CPT/HCPCS: 36415; 86703; 86704; 86705; 86706; 86708; 86709; 86803; 87340

== ENCOUNTER 2018-03-18 17:13 | Emergency (ER) | payer MEDICAID, SELFPAY ==
[2018-03-18 17:15] VITALS: BP 137/73; PULSE 106; RESP 17; TEMP 36.7; O2SAT 94; BMI 29.0
--- NOTE | 2018-03-18 17:31 | ED.VISSUMM ---
- ER Visit Summary Date of Service: 03/18/18 Chief Complaint: Cough, ear pain History of Present Illness: The patient is a 27 F who is at approximately 36 weeks gestation presents to the emergency department cough and ear pain. Patient has had some upper respiratory symptoms for the past 3 days. She states she had a few bouts of coughing where she is vomited twice. She denies any fevers or chills. Throughout the day, she had worsening pain in her ears, left greater than right. She denies any chest pain. She denies any dyspnea. She has had no vaginal bleeding or discharge. She still feeling baby move. She denies any leg edema, headache, or visual change. Physical Examination: Vital signs reviewed General: Well-nourished, well-developed Head: Normocephalic, atraumatic Eyes: Pupils equal and reactive, extraocular muscles intact ENT: Bilateral TMs are erythematous, but left TM does have distortion of landmarks. No mastoid tenderness. Oropharynx widely patent. Neck, supple, no lymphadenopathy Heart: Regular rate and rhythm Respiratory: No distress, clear bilaterally Abdomen: Soft, nontender, nondistended, no peritoneal signs Back: Nontender Extremities: Nontender, no edema, no cords Skin: Normal color no rash Neuro: Alert and oriented, no focal or lateralizing deficits Test Results: [] Emergency Department Course and Treatment: The patient has had URI type symptoms and now has an otitis media. She is . She is given Tylenol, amoxicillin, and Zofran. heart tones were obtained. The patient's blood pressure was checked manually. Is 118/80. She has no other symptoms of preeclampsia. Her abdomen was soft and nontender. I do feel that this is likely infectious in nature. She has had no acute dyspnea. I am going to treat the patient with amoxicillin. She will continue to follow-up with UNIVERS[facility] BRANCH CONSULTANT as scheduled. Treatment Plan: [] Disposition: Discharge Impression: Acute otitis media This note was generated with Tang [employer] dictation software. It may contain incorrect words, spelling, and punctuation that were not noted in review of the chart prior to signing ED Disposition - Plan for ED Patient: Chief Complaint: Cough Instructions: ED Otitis Media Acute Ch Prescriptions: Ondansetron [Zofran Odt] 4 mg PO Q8H PRN PRN #10 tab PRN Reason: Nausea Amoxicillin 500 mg PO TID #30 tab Referrals: Mariella Villarreal, CLINICAL APPEALS RN-C [NON-STAFF] -
[2018-03-18 17:43] VITALS: BP 118/80
[2018-03-18] MEDS: AMOXICILLIN 500 MG CAPSULE PO (17:44)
[2018-03-18] MEDS: Ondansetron ODT 4 MG Tablet PO (17:44)
[2018-03-18] MEDS: Acetaminophen 500 MG Tablet 1000 MG PO (17:44)
--- OUTSIDE RECORDS SUMMARY | 2018-05-21 12:06 | XMS RPT_ITS ---
:1990 Author Organization OHIP Support Name Relationship Address Phone KELBY GUY Unavailable [address] + [address] [place] [address] UE Unavailable Unavailable Unavailable GROVES, EDWARD Unavailable [address] + [address] [place] [address] UE Unavailable Unavailable Unavailable GROVES, EDWARD Unavailable [address] + [address] [place] [address] UE Unavailable Unavailable Unavailable AARON, VIOLETTE Unavailable Unavailable + ALEXS EDWARD Unavailable [address] [place] [address] UE Unavailable Unavailable Unavailable GROVES, EDWARD Unavailable [address] [place] [address] UE Unavailable Unavailable Unavailable GROVES, EDWARD Unavailable [address] [place] [address] UE Unavailable Unavailable Unavailable GROVES, EDWARD Unavailable [address] + [address] [place] [address] UE Unavailable Unavailable Unavailable GROVES, EDWARD Unavailable [address] + [address] [place] [address] UE Unavailable Unavailable Unavailable AARON, VIOLETTE Unavailable Unavailable + AARON, VIOLETTE Unavailable Unavailable + AARON, VIOLETTE Unavailable Unavailable + AARON, VIOLETTE Unavailable Unavailable + GROVES, EDWARD Unavailable [address] + [place] [address] UE Unavailable Unavailable Unavailable VIOLETTE WALKER Unavailable Unavailable + VIOLETTE WALKER Unavailable Unavailable + KELBY GUY Unavailable [address] + [place] [address] UE Unavailable Unavailable Unavailable MARY Unavailable [address] + [address] [place] [address] MALENA EDJOJO Unavailable [address] + [place] [address] KELBY GUY Unavailable [address] + [place] [address] SPENO Unavailable [address] [phone] [place] [address] COLBY GUYWARD Unavailable [address] + [place] [address] SPENO Unavailable [address] [phone] [place] [address] KELBY GUY Unavailable [address] + [place] [address] SPENO Unavailable [address] [phone] [place] [address] Care Team Providers Name Role Phone SAM, CLODAGH R Admitting Unavailable SAM, CLODAGH R Referring Unavailable UNKNOWN, PCP Primary Care Unavailable Dr. Seymour Butcher Attending Unavailable LULY BARFIELD Attending Unavailable UNKNOWN, PCP Primary Care Unavailable Dr. Elzbieta Russell Attending Unavailable Dr. José Antonio Friedman Referring Unavailable UNKNOWN, PCP Primary Care Unavailable UNKNOWN, PCP Primary Care Unavailable UNKNOWN, PCP Primary Care Unavailable UNKNOWN, PCP Primary Care Unavailable UNKNOWN, PCP Primary Care Unavailable Junior, Adriana Consulting Unavailable Oberhauser, Mary L Primary Care Unavailable OberhauserMary L Admitting Unavailable OberhauserMary L Attending Unavailable Junior, Adriana Attending Unavailable Oberhauser, Mary L Primary Care Unavailable Junior, Adriana Admitting Unavailable Junior, Adriana Attending Unavailable Oberhauser, Mary L Primary Care Unavailable Junior, Adriana Attending Unavailable Oberhauser, Mary L Primary Care Unavailable Junior, Adriana Attending Unavailable Oberhauser, Mary L Primary Care Unavailable Junior, Adriana Admitting Unavailable Junior, Adriana Attending Unavailable Oberhauser, Mary L Primary Care Unavailable Oberhauser, Mary L Primary Care Unavailable Gould, José Antonio A Admitting Unavailable Gould, José Antonio A Attending Unavailable Oberhauser, Mary L Primary Care Unavailable Gould, José Antonio A Attending Unavailable Zia, José Antonio A Attending Unavailable Oberhauser, Mary L Primary Care Unavailable Gould, José Antonio A Attending Unavailable Oberhauser, Mary L Primary Care Unavailable Oberhauser, Mary L Primary Care Unavailable Drew, Elzbieta K Attending Unavailable Drew, Elzbieta K Admitting Unavailable Gould, José Antonio A Admitting Unavailable Zia, José Antonio A Attending Unavailable Oberhauser, Mary L Primary Care Unavailable Gould, José Antonio A Attending Unavailable Oberhauser, Mary L Primary Care Unavailable Gould, José Antonio A Admitting Unavailable Gould, José Antonio A Attending Unavailable Oberhauser, Mary L Primary Care Unavailable Gould, José Antonio A Admitting Unavailable Gould, José Antonio A Attending Unavailable Oberhauser, Mary L Primary Care Unavailable Cruzito Paredes Attending Unavailable Oberhauser, Mary L Primary Care Unavailable Zia, José Antonio A Attending Unavailable Oberhauser, Mary L Primary Care Unavailable Gould, José Antonio A Attending Unavailable Oberhauser, Mary L Primary Care Unavailable Zia, José Antonio A Attending Unavailable Oberhauser, Mary L Primary Care Unavailable Zia, José Antonio A Admitting Unavailable Gould, José Antonio A Attending Unavailable Oberhauser, Mary L Primary Care Unavailable Gould, José Antonio A Attending Unavailable Oberhauser, Mary L Primary Care Unavailable Primay Care Physicia, No [...] Primary Care Unavailable FLORENCE CASIANO Attending Unavailable Primay Care Physicia, No Primary Care Unavailable Primay Care Physicia, No Primary Care Unavailable Jonny Hurd Attending Unavailable Primay Care Physicia, No Primary Care Unavailable Tammy Henrietta Attending Unavailable Adele Mitchell Attending Unavailable Primay Care Physicia, No Primary Care Unavailable PROBLEMS PROBLEMS DATE TYPE CONDITION / CODE ATTENDING STATUS SOURCE 03/14/2018 Unknown Z20.5 - Contact FLORENCE CASIANO Active [place] with and Community (suspected) Hospital exposure to viral Repository hepatitis / Z20.5(ICD-10) 03/14/2018 Unknown F19.10 - Other FLORENCE CASIANO Active [place] psycho[facility] Community substance abuse, Hospital uncomplicated / Repository F19.10(ICD-10) 10/09/2017 Final diagnosis Crohn's disease, Dr. Drew Active [facility] (discharge) unspecified, [facility] without Repository complications / K50.90(ICD-10) 10/09/2017 Final diagnosis Personal history of Dr. Drew Active [facility] (discharge) dis of the nervous [facility] sys and sense Repository organs / Z86.69(ICD-10) 10/09/2017 Final diagnosis Personal history of Dr. Drew Active [facility] (discharge) comp of preg, [facility] chldbrth and the Repository puerp / Z87.59(ICD-10) 10/09/2017 Final diagnosis Diseases of the Dr. Drew Active [facility] (discharge) dgstv sys comp [facility] , unsp Repository trimester / O99.619(ICD-10) 10/09/[address] Drew Active [facility] (discharge) dependence, [facility] unspecified, Repository uncomplicated / F17.200(ICD-10) 10/09/2017 Final diagnosis [address] Amy Russell (discharge) of / [facility] Z3A.13(ICD-10) Repository 09/22/2017 Admitting Diseases of the Dr. Amy Butcher diagnosis nervous sys comp [facility] , first Repository trimester / O99.351(ICD-10) 09/22/2017 Final diagnosis Diseases of the Dr. Amy Butcher (discharge) nervous sys [facility] , first Repository trimester / O99.351(ICD-10) 09/22/2017 Final diagnosis Migraine, unsp, not Dr. Amy Butcher (discharge) intractable, [facility] without status Repository migrainosus / G43.909(ICD-10) 09/22/2017 Final diagnosis [address] Amy Butcher (discharge) of / [facility] Z3A.12(ICD-10) Repository 09/22/2017 Final diagnosis Smoking (tobacco) Dr. Amy Butcher (discharge) complicating [facility] , first Repository trimester / O99.331(ICD-10) 09/22/[address] Amy Butcher (discharge) dependence, [facility] cigarettes, Repository uncomplicated / F17.210(ICD-10) 09/22/2017 Final diagnosis Diseases of the Dr. Amy Butcher (discharge) circ sys [facility] , first Repository trimester / O99.411(ICD-10) 09/22/2017 Final diagnosis Hypotension, Dr. Amy Butcher (discharge) unspecified / [facility] I95.9(ICD-10) Repository 09/22/2017 Final diagnosis Diseases of the Dr. Amy Butcher (discharge) dgstv sys [facility] , first Repository trimester / O99.611(ICD-10) 04/22/2017 Unknown F41.0 - Panic Henrietta Samayoa Active [place] disorder [episodic Community paroxysmal anxiety] Hospital / F41.0(ICD-10) Repository PROCEDURES PROCEDURES No Procedure Records FoundRESULTS RESULTS URINALYSIS, COMPLETE Collected: 03/20/2018 Status: F Source: [place] 6:15 PM [facility] HOSPITAL REPOSITORY Order Comment: How was Urine Obtained? SALESPERSON HANDBAGS TO SPECIFY TYPE CODE TESTS RESULT OUT OF RANGE REFERENCE UNITS LAB L400.3000 Yellow COLOR Normal Yellow LAB L400.3050 Clear Normal CLARITY Sl. Cloudy LAB L400.3200 Normal mg/dl Normal GLUCOSE, UR Normal LAB L400.3300 Negative mg/dL Normal BILIRUBIN URINE Negative LAB L400.3400 Negative mg/dl Normal KETONE UR Negative LAB L400.3465 1.002-1.030 Normal SP.GR. DIPSTX 1.010 LAB L400.3550 5.0 - 8.0 pH UR Normal 8.0 LAB L400.3600 Negative mg/dl PROT Normal DIPSTX Negative LAB L400.3700 Normal mg/dl Normal UROBILI Normal LAB L400.3750 Negative Normal NITRITE UR Negative LAB L400.3780 Negative /ul High 10 OCCULT BLOOD-UR LAB L400.3800 Negative /ul High LEUK ESTERASE 500 LAB L400.4050 0-5 /hpf WBC Normal 0-5 SEEN LAB L400.4100 0-5 /hpf 0 Normal RBC-UA SEEN LAB L400.4150 5-10 /hpf SQUAM Normal EPI 10-25 SEEN LAB L400.4300 None Seen /hpf 1+ Normal BACTERIA LAB L400.4350 <or=2+ /hpf 0 Normal MUCUS, URINE SEEN Performed By: #### L400.0001 #### [facility] [address] [place] [address], [address] Observed: 03/20/2018 Status: F Source: [place] CULTURE, URINE 6:15 PM [facility] Urine Culture ORGANISM 1: Yeast [place] Count <1000 Performed By: #### M100.0650 #### [facility] [address] [place] [address], [address] EMERGENCY DEPARTMENT Observed: 03/18/2018 Status: F Source: [place] SUMMARY 6:49 PM [facility] Medical Records Department [address] [place] [address] Emergency Department Summary 03/18/18 1731 MR#: [id number] Acct: [id number] Name: ALY GUY Rep #: [id number] : 1990 27 From: Jonny Hurd MD PCP: Care Physician, No Primary Status: DEP ER - ER Visit Summary Date of Service: 03/18/18 Chief Complaint: Cough, ear pain History of Present Illness: The patient is a 27 F who is at approximately 36 weeks gestation presents to the emergency department cough and ear pain. Patient has had some upper respiratory symptoms for the past 3 days. She states she had a few bouts of coughing where she is vomited twice. She denies any fevers or chills. Throughout the day, she had worsening pain in her ears, left greater than right. She denies any chest pain. She denies any dyspnea. She has had no vaginal bleeding or discharge. She still feeling baby move. She denies any leg edema, headache, or visual change. Physical Examination: Vital signs reviewed General: Well-nourished, well-developed Head: Normocephalic, atraumatic Eyes: Pupils equal and reactive, extraocular muscles intact ENT: Bilateral TMs are erythematous, but left TM does have distortion of landmarks. No mastoid tenderness. Oropharynx widely patent. Neck, supple, no lymphadenopathy Heart: Regular rate and rhythm Respiratory: No distress, clear bilaterally Abdomen: Soft, nontender, nondistended, no peritoneal signs Back: Nontender Extremities: Nontender, no edema, no cords Skin: Normal color no rash Neuro: Alert and oriented, no focal or lateralizing deficits Test Results: [] Emergency Department Course and Treatment: The patient has had URI type symptoms and now has an otitis media. She is . She is given Tylenol, amoxicillin, and Zofran. heart tones were obtained. The patient's blood pressure was checked manually. Is 118/80. She has no other symptoms of preeclampsia. Her abdomen was soft and nontender. I do feel that this is likely infectious in nature. She has had no acute dyspnea. I am going to treat the patient with amoxicillin. She will continue to follow-up with FLATBED PRESS OPERATOR as scheduled. Treatment Plan: [] Disposition: Discharge Impression: Acute otitis media This note was generated with Shopcl[employer] dictation software. It may contain incorrect words, spelling, and punctuation that were not noted in review of the chart prior to signing ED Disposition - Plan for ED Patient: Chief Complaint: Cough Instructions: ED Otitis Media Acute Ch Prescriptions: Ondansetron [Zofran Odt] 4 mg PO Q8H PRN PRN #10 tab PRN Reason: Nausea Amoxicillin 500 mg PO TID #30 tab Referrals: Mariella Villarreal, RUTH-C [NON-STAFF] - What to do if you have Problems For any increased pain, shortness of breath, bleeding, nausea or vomiting, chest pain, or any unexpected problems, contact your Primary Care Provider. Call [facility] ([phone]) or report to the closest Emergency Room. Call 911 if necessary. 03/18/18 5787 <Electronically signed by Jonny Hurd MD> Date Jonny Hurd MD Cosigner Signature (If Indicated): Date CC: No Primary Care Physician U DRUG SCREEN Collected: 03/16/2018 Status: F Source: [facility] 4:42 PM [facility] REPOSITORY TYPE CODE TESTS RESULT OUT OF RANGE REFERENCE UNITS LAB 65592662(L OINC) U Normal Amph Scr NEGATIVE LAB 07433631(L OINC) U Normal Jordyn Scr NEGATIVE LAB 91763282(L OINC) U Normal Benzodia Scr NEGATIVE LAB 77201818(L OINC) U Normal Cannab Scr NEGATIVE LAB 03372822(L OINC) U Normal Cocaine Scr NEGATIVE LAB 97303895(L OINC) U Normal Opiate Scr NEGATIVE LAB 22673851(L OINC) U Normal PCP Scr NEGATIVE Performed By: #### [id number] #### [facility] [address] [place] [address] Observed: 03/16/2018 Status: F Source: [facility] GROUP B STREP PCR 4:40 PM [facility] REPOSITORY Order Comment: For positive results only; Penicillin is the recommended antibiotic for the treatment of Group B Streptococcal disease. In case of penicillin allergy, Clindamycin may be used. All Negative GBS Screens by PCR will be confirmed by culture. Final Report: Streptococcus Group B screen positive Performed By: #### [id number] #### [facility]section [address] [place] [address] HIV - [facility] Collected: 03/13/2018 Status: F Source: [place] 4:28 PM [facility] TYPE CODE TESTS RESULT OUT OF RANGE REFERENCE UNITS LAB L3890.6005 Nonreactive Normal HIV - [facility] Non-Reactive Performed By: #### L3890.6005 #### [facility] [address] [place], [place], [address] HEPATITIS ABC PROFILE Collected: 03/13/2018 Status: F Source: [place] 4:28 PM [facility] TYPE CODE TESTS RESULT OUT OF RANGE REFERENCE UNITS LAB L3100.0200 Negative Normal HEP A Negative IgM 6734 LAB L3100.0300 Negative Normal HEP A Negative AB,T.6726 LAB L3100.0400 Negative Normal HB Negative SURF AG LAB L3100.0440 Negative Normal HB Negative CORE [id number] LAB L3100.0460 Negative Normal HEP B Negative CORE,TOT LAB L3100.0510 . Normal Hep B Reactive Anthony AB Result Comment: Non Reactive: Inconsistent with immunity, less than 10 mIU/mL Reactive: Consistent with immunity, greater than 9.9 mIU/mL LAB L3100.0750 0.0-0.9 s/co ratio Normal HCV Ab <0.1 LAB L3100.0765 . Normal COMMENT Comment Result Comment: Non reactive HCV antibody screen is consistent with no HCV infection, unless recent infection is suspected or other evidence exists to indicate HCV infection. Performed at: - [facility] [id number] Sand Mill Operator Core Sand: Elmer Riley PhD, Phone: [phone] Performed By: #### L3000.0700 #### [facility] (refer to report for specific site) refer to report for address and phone number CBC W/DIFF, AUTOMATED Collected: 01/27/2018 Status: F Source: [place] 11:38 AM [facility] TYPE CODE TESTS RESULT OUT OF [...] LYMPH 1+ Performed By: #### L100.0100 #### [facility] [address] [facility]. [place], [place], [address] FIBRONECTIN Collected: 01/15/2018 Status: F Source: [place] 3:15 PM [facility] Order Comment: Has pt arrived? Y TYPE CODE TESTS RESULT OUT OF RANGE REFERENCE UNITS LAB L205.0100 Normal fFN Negative Performed By: #### L205.0000 #### [facility] [address] [place], [address] URINALYSIS, ROUTINE Collected: 01/15/2018 Status: F Source: [place] (DIPSTICK) 3:00 PM [facility] Order Comment: How was Urine Obtained? SALESPERSON HANDBAGS TO SPECIFY TYPE CODE TESTS RESULT OUT [...] High LEUK ESTERASE 500 Performed By: #### L400.2010 #### [facility] [address] [facility] [place], [address] Observed: 01/15/2018 Status: F Source: [place] CULTURE, URINE 3:00 PM [facility] Has pt arrived? Y Urine Culture There are no CLSI standards for interpretation of this Drug/Organism combination. ORGANISM 1: Lactobacillus species [place] Count >100,000 Performed By: #### M100.0650 #### [facility] [address] [facility] [place], [address] GLUCOSE CHALLENGE GEST Collected: 01/03/2018 Status: F Source: [place] 1H 50G 8:56 AM [facility] TYPE CODE TESTS RESULT OUT OF RANGE REFERENCE UNITS LAB L501.0250 70-140 mg/dL Normal GLU GEST 125 50g 1H Performed By: #### L501.0250 #### [facility] [address] [place], [address] GENETICS - Observed: 12/05/2017 Status: UNK Source: [facility] 8:29 PM HOSPITALS REPOSITORY Chief Complaint Patient was seen on 10/09/17 via Telemedicine as a follow-up after a recent inpatient evaluation and stay at [facility]. History of Present Illness Aly is a 27 yo who was 13+5 at time of our outpatient follow-up based on EDC 04/05/18. She had a recent antepartum admission after transfer from [place] with headache and concern for a new [...] of urinary or bowel control. During her [facility] hospital stay, a hypercoagulability work-up was negative, and repeat MRI/MRV ruled OUT the previously suspected venous sinus thrombosis, with Neurology consultation guiding [facility] imaging recommendations and interpretation. Of note, she [...] child was adopted into another family. Krystal mercedes and her partner appear to recall very little from this delivery and the situation surrounding it. Her is also notable for a long-standing diagnosis of Crohn's disease, diagnosed after a 2005 bowel resection via pathology. Initial surgery appears to have been performed in the setting of an acute abdomen. She has previously used Humira with good symptom control, noting 1 flare/year and no fistulas or perianal disease. During her hospital stay, she was seen primarily by the [facility] team, and follow-up plan of care for [...] Pen 40 MG/0.4ML Subcutaneous Pen-injector Kit; Therapy: (Recorded:68Yyc9597) to Recorded Dispense: 0 Days ; #: Sufficient Pen-injector Kit; Refill: 0; YING = N; Record; Last Updated By: Letty Stevens; 10/09/2017 11:05:15 AM One Daily TABS; Therapy: (Recorded:06Oct2017) to Recorded Dispense: 0 Days [...] Pen 40 MG/0.4ML Subcutaneous Pen-injector Kit; Therapy: (Recorded:79Eyo1730) to Recorded One Daily TABS; Therapy: (Recorded:06Oct2017) to Recorded Signatures Electronically signed by : Elzbieta Russell MD; Dec 05 2017 8:29PM EST (Author) US AFTER 1ST Observed: 11/21/2017 Status: F Source: [facility] 9:32 AM [facility] REPOSITORY Exam Date/Time: 11/21/2017 10:12 EDT Reason for Exam: DATES / ANATOMY;Standard Anatomy Report STUDY: US After 1st Trimester 11/21/2017 10:12 am INDICATION: Standard Anatomy. COMPARISON: None. ACCESSION NUMBER(S): [id number] ORDERING CLINICIAN: José Antonio Friedman TECHNIQUE: Routine [...] Signed by: Catrachito Aguillon MD Technologist: SHANTELLE LOVE TETRA PROFILE Collected: 10/31/2017 Status: F Source: [facility] 1:32 PM [facility] REPOSITORY TYPE CODE TESTS RESULT OUT OF RANGE REFERENCE UNITS LAB 12496279(L OINC) *Screen Normal AFP Negative* TP Test Results: LAB 10593992(L week(s) OINC) 17.3 Normal AFP TP Gest Age LAB 66868665(L OINC) Normal AFP Ultrasound TP GA Base Result Comment: 17.3 on 10/31/2017 LAB 23599269(LOINC) 26.6 Normal AFP TP Mat Age LUCILA LAB 13814110(LOINC) Normal AFP TP Race LAB 88284932(LOINC) lb 133 Normal AFP TP Weight LAB 26078822(LOINC) No Normal AFP TP Insulin Dep Diabetes LAB 37189591(LOINC) No Normal AFP TP Mult Gest LAB 03272180(LOINC) ng/mL 43.7 Normal AFP TP AFP Sona EIA LAB 82607535(LOINC) 1.04 Normal AFP TP AFP Mom Value LAB 87933088(LOINC) mIU/mL 13381 Normal AFP TP hCG Value LAB 15046372(LOINC) 0.74 Normal AFP TP hCG Mom LAB 91869190(LOINC) ng/mL 1.69 Normal AFP TP uE3 Value LAB 44690013(LOINC) 1.52 Normal AFP TP uE3 Mom LAB 65646329(LOINC) pg/mL Normal AFP TP NATALIE 368.89 Value EIA LAB 46989349(LOINC) 2.06 Normal AFP TP NATALIE Mom Value LAB 83709206(LOINC) [address] Normal AFP TP OSBR Risk 1 IN LAB 32877018(LOINC) 1723 Normal AFP TP DSR 2nd Times 1IN LAB 64771203(LOINC) 948 Normal AFP TP DSR(by Age) 1IN LAB 72723020(LOINC) Normal AFP TP T18 1:3695 Risk LAB 10472442(LOINC) Not Normal AFP TP T18 (By increased Age) LAB 62746554(LOINC) Normal AFP TP Interp Comment Result Comment: [...] identifies 60% of Trisomy 18 pregnancies. The [place] [employer] recommends amniocentesis be offered to women age 35 and older. Recalculations are not recommended when gestational dating by LMP and ultrasound are within 10 days. LAB 67236735(LOINC) AFP TP Normal Comments: Comment Result Comment: Alida Garcia, Ph.D., [facility] Principal Genetics Clinical Data Manager References: Available Upon Request. Multiples Of Median Cutoffs Abbreviation Definitions For AFP Elevations IDD- Insulin Dep Diabetes Richter 2.5 Black 2.8 OSBR- Open Spina Bifida IDD 2.0 Twins 4.5 Risk DSR Cutoff 1:270 DSR- Down Syndrome Risk T18 Cutoff 1:100 T18- Trisomy 18 Down Syndrome and Trisomy 18 screening are considered Investigational For further inquiries contact [employer] at [phone]. Performed At: [facility] [address] [place], [place] [id number] Yohannes Olson MD Ph:[phone] Performed By: #### [id number] #### [place] [address] EMERGENCY DEPARTMENT Observed: 09/30/2017 Status: F Source: [place] SUMMARY 8:25 AM [facility] Medical Records Department [address] [place] [address] Emergency Department Summary 09/29/17 0449 MR#: [id number] Acct: [id number] Name: ALY GUY Rep #: [id number] : 1990 27 From: Scott Ham MD [...] lab work. She will follow-up with her FLATBED PRESS OPERATOR Treatment Plan: [] Disposition: [] Impression: [] Vaginal bleeding in This note was generated with Attenex software. It may contain incorrect words, spelling, [...] Impression: [] This note was generated with Attenex software. It may contain incorrect words, spelling, [...] need for her to follow with her cream separator operator in the next few days return for [...] your Primary Care Provider. Call [facility] ([phone]) or report to the closest Emergency Room. Call 911 if necessary. 09/30/17 0017 <Electronically signed by Scott Ham MD> Date Scott Ham MD 09/30/17 0825<Electronically signed by Myra Carroll MD> Cosigner Signature (If Indicated): Date Myra Carroll MD CC: No Primary Care Physician DISCHARGE INSTRUCTION Observed: 09/29/2017 Status: F Source: [place] 9:27 AM [facility] Medical Records Department [address] [place] [address] Discharge Instruction 09/29/17 0900 MR#: [id number] Acct: [id number] Name: ALY GUY Rep #: [id number] : 1990 27 From: Myra Carroll MD PCP: Sean Physician, No Primary Status: REG ER ED Disposition - Plan for ED Patient: Chief Complaint: Vag Bld, Preg Instructions: ED Miscarriage Poss Referrals: Care Physician,No Primary [Primary Care Provider] - Additional Instructions: Follow-up with her cream separator operator next few days return for change in symptoms no sex or heavy exertional activity What to do if you have Problems For any increased pain, shortness of breath, bleeding, nausea or vomiting, chest pain, or any unexpected problems, contact your Primary Care Provider. Call [facility] ([phone]) or report to the closest Emergency Room. Call 911 if necessary. 09/29/17 0927 <Electronically signed by Myra Carroll MD> Date Myra Carroll MD Cosigner Signature (If Indicated): Date CC: No Primary Care Physician TRANSVAGINAL W/PREG US Observed: 09/29/2017 Status: F Source: [place] 4:41 AM [facility] Imaging Services [address] [place] [address] Transvaginal w/Preg US MR#: [id number] Acct: [id number] Name: ALY GUY Rep #: [id number] : 1990 F 27 From: Tone Serrano MD PCP: Care Physician, No Primary Status: REG ER Study: Transvaginal w/Preg US Date of Exam: 09/29/17 Exam# [id number] Ordering Dr: Scott Ham MD STUDY: FIRST [...] Tone Serrano MD at 8:37 EDT Tel [phone], Service support , CC: No Primary Care Physician; Scott Ham MD Patcher Wood Welder: Signed CLINICAL EVENT Observed: 09/22/2017 Status: UNK Source: [place] NOTE-NEUROLOGY SIGN OFF 11:13 AM HOSPITALS REPOSITORY Event: Topic: Neurology Sign Off Details: MRV reviewed and is not consistent with venous thrombosis. No need for anticoagulation at this time. Neurology will sign off at this time. Page with any questions [id number]. Discussed with attending. Josse Sanchez DO, MHSA PGY-3 Provider / Team Contact Information: Provider/Team Contact Info-Pager Number: [phone] Electronic Signatures: Josse Sanchez ( (Resident)) (Signed 22-Sep-2017 11:17) Authored: Event, Provider / Team Contact Information Last Updated: 22-Sep-2017 11:17 by Josse Sanchez (Resident)) GC + CHLAMYDIA BY Collected: 09/22/2017 Status: F Source: [place] AMPLIFIED DETECTION 9:01 AM HOSPITALS REPOSITORY TYPE CODE TESTS RESULT OUT OF REFERENCE UNITS RANGE LAB GCAMP(LOINC NEGATIVE ) NEGATIVE N.GONORRHEA, AMPLIFIED Result Comment: Performance characteristics for Neisseria gonorrhoeae testing on female urine samples has been validated by [facility]. Testing on this sample type is not FDA-approved, but such approval is not necessary. This laboratory is certified by CLIA to perform high complexity testing. LAB CTAMP(LOINC) NEGATIVE CHLAMYDIA TRACH.,AMPLIFIED NEGATIVE Result Comment: Performance characteristics for Chlamydia trachomatis testing on female urine samples has been validated by [facility]. Testing on this sample type is not FDA-approved, but such approval is not necessary. This laboratory is certified by CLIA to perform high complexity testing. LAB SOURCE([facility]) Lab Specimen Source Urine Performed By: #### GCCHA #### [facility] [address] [place] [address] DAILY PROGRESS NOTE - Observed: 09/22/2017 Status: COMPLETED Source: [place] OB-ANTEPARTUM - MFM 8:18 AM HOSPITALS REPOSITORY [...] ----- Mn/Dy/Year TimeIntakeOutputNet Sep 22, 2017 6:00 [id number] Sep 21, 2017 10:00 [id number] Sep 21, 2017 2:00 [id number] The Intake and Output Totals for the last 24 hours are: IntakeOutputNet [id number] T PRBPSpO2 Value37.7456321/6298% Date/Time09/22 3: 3: 3: 3: 3:45 Range(36.8C [...] than eight hours after previous dose. Contact [phone] for additional info Hep.B Surface Ag NONREACTIVE Reference Range: NONREACTIVE Patients receiving more than 5 mg/day of biotin may have interference in test results. A sample should be taken no sooner than eight hours after previous dose. Contact [phone] for additional infor HIV Antigen/Antibody Screen 21-Sep-2017 [...] Beta 2 Glycoprotein Ab 21-Sep-2017 03:21:00 ResultValue Iass-5-Uakejnczvjvx IgG Antibody <1.4 Jfmv-1-Mkcczjjfqmfo IgA Antibody 0.7 Upjf-3-Ltrdscqopcjm IgM Antibody <0.2 Dilute Kervin Viper Venom [...] Quantitative 21-Sep-2017 03:21:00 ResultValue HCG, Beta Quantitative 96322 A Assessment and Plan: Assessment: 27 yo at 12.1 (09/22) wga by reported 8.5 wk US presenting for transfer of care from [place] with new dx of L transverse sinus [...] records Dispo - anticipate discharge today Margie Ledezma, PGY3 M [address] Signature/Cosignature/Attestation: Comments/ Additional Findings I saw and [...] documented in her/his note. Espinoza Butcher MD [facility] Attending Electronic Signatures: Margie Ledezma (Resident)) (Signed 22-Sep-2017 08:30) Authored: Current Stage, Subjective Data, Objective Data, Assessment and Plan, Signature/Cosignature/Attestation Seymour Butcher) (Signed 22-Sep-2017 22:23) Authored: Signature/Cosignature/Attestation Co-Signer: Current Stage, Subjective Data, Objective Data, Assessment and Plan, Signature/Cosignature/Attestation Last Updated: 22-Sep-2017 22:23 by Seymour Butcher () NR MR VENOGRAPHY Observed: 09/21/2017 Status: F Source: [facility] INTRACRANIAL W/O 6:00 PM HOSPITALS REPOSITORY CONTRAST Patient Name: ALY GUY STUDY: NR MRI BRAIN WO; NR MR VENOGRAPHY INTRACRANIAL W/O CONTRAST; 09/21/2017 5:59 pm; 09/21/2017 6:00 pm INDICATION: Signs/Symptoms: R/o venous sinus thrombosis. Stroke protocol. COMPARISON: None ACCESSION NUMBER(S): [id number]; [id number] ORDERING CLINICIAN: ELLYN TAPIA TECHNIQUE: MRI of [...] as stated. This study was interpreted at [place], [place]. Electronically signed by: CATY KARIMI MD NR MRI BRAIN WO Observed: 09/21/2017 Status: F Source: [place] 5:59 PM HOSPITALS REPOSITORY Patient Name: ALY GUY STUDY: NR MRI BRAIN WO; NR MR VENOGRAPHY INTRACRANIAL W/O CONTRAST; 09/21/2017 5:59 pm; 09/21/2017 6:00 pm INDICATION: Signs/Symptoms: R/o venous sinus thrombosis. Stroke protocol. COMPARISON: None ACCESSION NUMBER(S): [id number]; [id number] ORDERING CLINICIAN: ELLYN TAPIA TECHNIQUE: MRI of [...] as stated. This study was interpreted at [place], [place]. Electronically signed by: CATY KARIMI MD WITH HBSAG Collected: 09/21/2017 Status: F Source: [place] 2:44 PM HOSPITALS REPOSITORY TYPE CODE TESTS [...] than eight hours after previous dose. Contact [phone] for additional information. LAB RUBIG([facility]) IU/ML RUBELLA IGG AB 143.0 Result Comment: REF VALUES NON-IMMUNE: < 5 EQUIVOCAL: 5-9 IMMUNE: >=10 LAB HAGFN([facility]) NONREACTIVE NONREACTIVE HEP.B SURFACE AG Result Comment: Patients receiving more than 5 mg/day of biotin may have interference in test results. A sample should be taken no sooner than eight hours after previous dose. Contact [phone] for additional information. LAB SOURCE([facility]) Lab Specimen Source Performed By: #### PRNH3 #### [facility] [address] [place] [address] PATH REVIEW-HGB Collected: 09/21/2017 Status: F Source: [facility] IDENTIFICATION 2:44 PM HOSPITALS REPOSITORY TYPE CODE TESTS RESULT OUT OF RANGE REFERENCE UNITS LAB PRV27([facility] ) PATH K.GEOVANI REV-HGB IDENT. Result Comment: By her/his signature above, the Pathologist listed as making the final interpretation certifies that she/he has personally reviewed this case. Performed By: #### PR27 #### [facility] [address] [place] [address] HEMOGLOBIN IDENTIFICATION Collected: 09/21/2017 Status: F Source: [place] 2:44 PM HOSPITALS REPOSITORY TYPE CODE TESTS RESULT OUT OF REFERENCE UNITS RANGE LAB HBA(LOINC) % HEMOGLOBIN A 96.7 LAB HBF(LOINC) % HEMOGLOBIN F 0.4 LAB HBA2(LOINC % ) HEMOGLOBIN A2 2.9 Result Comment: HGB A2 values may be falsely elevated in the presence of HGB S. LAB HBINT(LOINC) INTERPRETATION SEE COMMENT Result Comment: Normal Performed By: #### ALDO #### [facility] [address] [place] [address] TYPE + SCREEN Collected: 09/21/2017 Status: CANCELLED Source: [place] 2:44 PM HOSPITALS REPOSITORY Order Comment: TEST TYPE + SCREEN WAS CANCELLED, 09/26/2017 15:46 DUPLICATE ORDER. TYPE CODE TESTS RESULT OUT OF REFERENCE UNITS RANGE LAB ABORH(LOIN C) ABO TYPE Canceled LAB RH(LOINC) RH TYPE Canceled LAB ABSC(LOINC ) ANTIBODY Canceled SCREEN Performed By: #### T+S #### [facility] [address] [place] [address] CLINICAL EVENT Observed: 09/21/2017 Status: UNK Source: [facility] NOTE-UPDATED NEURO RECS 1:44 PM HOSPITALS REPOSITORY Event: Topic: Updated Neuro Recs Details: It is unclear if the imaging finding is indicative of a CVT vs arachnoid granulation. Please obtain MRV time of flight in addition to MRI brain with volumetric T1 and T2 images. Tammy Padgett MD PGY4 Neurology Resident Electronic Signatures: Tammy Martin (Resident)) (Signed 21-Sep-2017 13:51) Authored: Event Last Updated: 21-Sep-2017 13:51 by Tammy Martin (Resident)) TOTAL PROTEIN, URINE Collected: 09/21/2017 Status: CANCELLED Source: [facility] 11:55 AM HOSPITALS REPOSITORY Order Comment: TEST TOTAL PROTEIN, URINE SPOT WAS CANCELLED, 09/21/2017 11:55 ?Cancel Reason: Patient Discharged. TYPE CODE TESTS RESULT OUT OF REFERENCE UNITS RANGE LAB TPSP(LOINC) TOTAL Canceled PROT,URINE SPOT LAB CRTSP(LOINC ) Canceled CREATININE,U RINE LAB TPCRT(LOINC ) T. Canceled PROTEIN/CREA T RATIO Performed By: #### TPS2 #### [facility] [address] [place] [address] CONSULT-MATERNAL - Observed: 09/21/2017 Status: COMPLETED Source: [place] [facility] ( MEDICAL STUDENT 7:37 AM HOSPITALS REPOSITORY NOTE , A Service: Service: Maternal - Medicine Medical Student: Medical Student Note Stephen Ghosh History of Present Illness: Admission Reason: L dural venous sinus thrombosis HPI: 27 yo at 12 wga by reported 8.5 wk US presenting as transfer from [place] with 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 Presented initially with L frontal KINNEY, dizziness, weakness/heaviness, and blurry vision. Transferred to and admitted to [facility] service. This am, pt feeling poorly. Complaining [...] warmth, edema, or tenderness in LE Neurological: bisque cleaner grossly intact, moving all 4 extremities Psychological: [...] Beta 2 Glycoprotein Ab 21-Sep-2017 03:21:00 ResultValue Nbph-4-Fmeipwhwqhsc IgG Antibody <1.4 Ydpb-7-Gscpkzzgcacp IgA Antibody 0.7 Lqxn-0-Vkklyazerosu IgM Antibody <0.2 Dilute Kervin Viper Venom [...] Quantitative 21-Sep-2017 03:21:00 ResultValue HCG, Beta Quantitative 06794 A Assessment: 27 yo at 12 wga by reported 8.5 wk US presenting for transfer of care from [place] with new dx of L transverse sinus [...] Request US records Stephen Ghosh MS4 Signature/Cosignature/Attestation: Map Editor Only - Attest to Medical Student/Acting Franchise Specialist documentationAs a teaching institution, we recognize that [...] care. Lan Andujar MD Electronic Signatures: Lan Andujar) (Signed 21-Sep-2017 13:39) Authored: Signature/Cosignature/Attestation Co-Signer: Service, History of Present Illness, Allergies, Objective, Assessment/Recommendations, Signature/Cosignature/Attestation Davina Stephen (PeerMe) (Signed 21-Sep-2017 11:54) Authored: Service, History of Present Illness, Allergies, Objective, Assessment/Recommendations, Signature/Cosignature/Attestation Last Updated: 21-Sep-2017 13:39 by Lan Andujar) CONSULT - NEURO-STROKE Observed: 09/21/2017 Status: COMPLETED Source: [place] 4:16 AM HOSPITALS REPOSITORY Service: Service: Service: Stroke Consult: Consult requested by (Attending Name): Lm Reason: CVT History of Present Illness: HPI: This is a 27 yo woman currently 10 week , migraines presenting as transfer from [place] with diagnosis of L transverse dural venous [...] was able to walk. She presented to [facility] when the headache didn't resolve after a few hours like it usually does. CTV showed a nonocclusive L transverse sinus thrombus. She was transferred to OBGYN service at [facility]. She has migraines a few times each [...] Known Allergies: Objective: Objective Information: T PRBPSpO2 Qojsz10306810/4194% Date/Time09/21 2:107 3: 2: 4:137 2:10 Range(37C - 37C ) (73 [...] exam was normal. In both upper extremities, zeawuh-uzzc-afzzpf was intact without dysmetria or overshoot. In both lower extremities, cmxg-qf-ifcx was intact. KAYLEE were intact in both [...] Quantitative 21-Sep-2017 03:21:00 ResultValue HCG, Beta Quantitative 82923 A Radiology Results: Results: CT venous (contrast) reviewed from disk in paper chart. Non- occlusive <1cm flow void in L transverse sinus. Assessment/Recommendations: Aly Guy is a 27 yo 10 week woman presenting for headache, transferred to [facility] for L transverse sinus thrombus. Patient's black [...] she has a mild headache still. At [place] ED, CTV was interpreted as showing a nonocclusive L transverse sinus thrombus. She was transferred to OBGYN service at [facility] and started on full anticoagulation with Lovenox. [...] Did this patient receive any care at [facility]?: no Was this patient transferred from another facility for this admission?: yes Transfer Location (If patient is coming from an office, choose the hospital where patient intended to deliver.): Other Dating: ? Choose Antepartum or Postpartumantepartum ? Final [id number] ? Current EGA:12 HPI Descriptive Info: ? HPI 27 yo at 12.0 wga by reported 8.5 wk U/S presents as a transfer from [place] with a new diagnosis of left dural [...] last flare 6 mos. 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 Lam Marie, PGY-2 Signatures/Attestation/Certification: Attending [...] on 21-Sep-2017 Comments/ Additional Findings Transferred from [place] for dural venous sinus thrombosis and headache. [...] Signatures/Attestation/Certification, Antepartum, Family History, HPI/OB History/Dating Mariella Marie (Resident)) (Signed 21-Sep-2017 04:03) Authored: Social History, Allergies, Review of Systems, Objective, Assessment and Plan, Signatures/Attestation/Certification, Antepartum, Family History, HPI/OB History/Dating Last Updated: 28-Sep-2017 10:02 by Noris Arora ([facility]) ADMISSION RISK SCREEN Observed: 09/21/2017 Status: UNK [...] ? Cultural Considerationsnone ? Developmental Considerationsnone ? Episcopalian Considerationsnone Learning Assessment (Other Learner): ? Other [...] Screen: ? Are there any cultural, spiritual, bahai practices/values/needs that are important for us to [...] with underlying chronic conditions or reside in supervisor long goods care facilitiesnone of these conditions ? Persons [...] Forte) CBC Collected: 09/21/2017 Status: F Source: [place] 3:21 [facility] REPOSITORY TYPE CODE TESTS RESULT OUT [...] RDW-CV 13.1 Performed By: #### CBC #### [facility] [address] [place] [address] COAGULATION SCREEN Collected: 09/21/2017 Status: F Source: [place] 3:21 [facility] REPOSITORY TYPE CODE TESTS RESULT OUT OF REFERENCE UNITS RANGE LAB PT(LOINC) 9.8 - 12.7 sec PROTHROMBIN TIME 11.3 LAB INR(LOINC) 0.9 - 1.1 PT, INR 1.0 LAB APTT(LOINC 25 - 36 sec ) APTT 26 Result Comment: THE APTT IS NO LONGER USED FOR MONITORING UNFRACTIONATED HEPARIN THERAPY. FOR MONITORING HEPARIN THERAPY, USE THE HEPARIN ASSAY. Performed By: #### COAGS #### [facility] [address] [facility] [place] [address] COMPREHENSIVE PANEL Collected: 09/21/2017 Status: F Source: [place] 3:21 [facility] REPOSITORY TYPE CODE TESTS RESULT OUT [...] for ALT. Performed By: #### CMP #### [facility] [address] [place] [address] HCG,BETA-QUANTITATIVE Collected: Status: F Source: [place] 09/21/2017 3:21 AM HOSPITALS REPOSITORY TYPE CODE TESTS RESULT OUT OF RANGE REFERENCE UNITS LAB HCGQU(LOINC IU/L ) Abnormal [address]4585 HCG,BETA-QU ANTITATIVE Result Comment: Low-level positive HCG [...] performed using a different test methodology at [facility] than other [facility]. Direct result comparison should only be made within the same method. REF VALUES NON FEMALE <5 MALES <5 Performed By: #### HCGQU #### [facility] [address] [place] [address] DILUTE KERVIN VIPER Collected: 09/21/2017 Status: F Source: [place] VENOM TIME[DRVVT] 3:21 AM HOSPITALS REPOSITORY TYPE CODE TESTS RESULT OUT OF REFERENCE UNITS RANGE LAB DRVSC(LOIN RATIO C) DRVVT SCREEN 0.93 LAB DRVCN(LOIN RATIO C) DRVVT CONFIRMATION 1.02 LAB DRVTR(LOIN <=1.20 RATIO C) DRVVT TEST RATIO 0.91 Performed By: #### DRVVT #### [facility] [address] [place] [address] BETA 2 GLYCOPROTEIN AB Collected: 09/21/2017 Status: F Source: [address] REPOSITORY TYPE CODE TESTS RESULT OUT OF [...] or cryoglobulins. Performed By: #### B2GLY #### [facility] [address] [place] [address] ANTICARDIOLIPIN AB Collected: 09/21/2017 Status: F Source: [address] REPOSITORY TYPE CODE TESTS RESULT OUT OF [...] or cryoglobulins. Performed By: #### ACA2 #### [facility] [address] [place] [address] FACTOR V LEIDEN Collected: 09/21/2017 Status: F Source: [place] 3:21 [facility] REPOSITORY TYPE CODE TESTS RESULT OUT OF REFERENCE UNITS RANGE LAB GINT9(LOINC ) FACTOR V SEE BELOW LEIDEN Result Comment: RESULTS WILL BE SENT ON SEPARATE REPORT. Performed By: #### LEID2 #### [facility] [address] [address] [place], [place] [id number] PROTHROMBIN MUTATION- Collected: 09/21/2017 Status: F Source: [place] [id number] 3:21 [facility] REPOSITORY TYPE CODE TESTS RESULT OUT OF REFERENCE UNITS RANGE LAB GIN19(LOIN C) PROTHROMBIN MUTATION- [id number] SEE BELOW Result Comment: RESULTS WILL BE SENT ON SEPARATE REPORT. Performed By: #### GPRO2 #### [facility] [address] [address] [place], [place] [id number] TYPE + SCREEN Collected: 09/21/2017 Status: CANCELLED Source: [place] 3:20 [facility] REPOSITORY Order Comment: TEST TYPE + SCREEN WAS CANCELLED, 09/22/2017 15:56 DUPLICATE ORDER see [id number]. TYPE CODE TESTS RESULT OUT OF REFERENCE [...] 09/21/2017 11:03 Performed By: #### T+S #### [facility] [address] [place] [address] PATIENT PROFILE - OB Observed: 09/21/2017 Status: UNK Source: [place] [address] 2:26 AM HOSPITALS REPOSITORY Profile: Initial Info: How to be Addressedrose Spoken Language PreferredEnglish Source of Informationpatient Are you currently using the Personal Electronic Health Record or Brandliveno Are you interested in learning more about Brandlive for the management of your healthnot at this time Reason for admission this visitother diagnosis early Arrived Fromspital Patient Belongingsremains with patient Patient Belongings Remaining with Patientcell phone/electronics; clothing; vision aids Medications Brought to Hospitalno Info: Gravida2 Term Deliveries1 Deliveries0 Abortions0 Living Children1 Patient stated [id number] Calculation of EGA based on patient stated EDD12 Is care information applicable this patient/visit?not yet Current Risksnone Testsultrasound Previous Delivery (20 weeks or greater)yes First Delivery Complications (Oldest Child/Children)preeclampsia Is plan applicable this patient/visit?not yet Is infant information applicable this patient/visit?not yet Is feeding plan applicable this patient/visit?not yet General Health: Weight in nyg854 pound(s) Weight in kg57.1 kilogram(s) Weight Methodactual [...] Support/Comfortspouse Lives Withspouse Resource/Environmental Concernsnone [facility] Anticipated at Transitionnone Information Review: ? Allergies, Home Meds and Significant Events have been Reviewed and Verified with Patient/Familyno ALLERGY, INTOLERANCE, ADVERSE EVENT: Allergies: ? No Known Allergies: Active Electronic Signatures: Dania Forte (RN) (Signed 21-Sep-2017 03:44) Authored: Profile, Additional Information Last Updated: 21-Sep-2017 03:44 by Dania Forte (CORTNEY) DISCHARGE PROFILE2 Observed: 09/21/2017 Status: [facility] Source: [place] 2:25 AM HOSPITALS REPOSITORY Discharge Orders: Anticipated Discharge Date: ? Anticipated Discharge [id number] Triage OB: Activity: Return to normal activity [...] ? Physician/Dept/ServiceOB Provider ? CommentsFollow up with parlor maid as scheduled. Provider FINAL REVIEW of Orders: Final Review: ? Final Review of Medication Reconciliation and Orders Completedby Physician ? Reviewing ProviderYoliitlin MD Henry (Resident) at 22-Sep-2017 09:59:32 Appointments: Follow-Up Appointment 01: ? Physician/Dept/EmmaDR Luna [facility] OB ? Reason for ReferralPRENATAL VISIT ON [...] COOR) (Signed 22-Sep-2017 10:57) Authored: Appointments Dania Forte) (Signed 21-Sep-2017 02:26) Authored: Other Clinician Instructions, Gold Form - Canal Equipment Maintenance Supervisor Summary Last Updated: 22-Sep-2017 10:57 by Oscar Carreno (CLIN COOR) DISCHARGE PLANNING Observed: 09/21/2017 Status: UNK Source: [place] NOTE 2:24 AM HOSPITALS REPOSITORY Discharge Needs Assessment: ? Discharge Planning Assessment [id number] Discharge Planning: Discharge Planning: Date and Time: 09/21/2017 0208 Nursing Note/Admission/Health Maintenance: D: Patient admitted to the FLATBED PRESS OPERATOR unit from [place] Patient admitted for or s/p neuro consult [...] to assess home going/discharge needs. Coordinate with Rebar Fabricator as needed. Signature: Nneka BARR Date and Time: 09/22/17 @ 1300 Nursing Note/Discharge: D: According to plan, patient discharged to home with family Instructions printed and reviewed, see Discharge Instructions sheet. Teaching provided on new medications, self care, signs and symptoms to report, PI sheets, and follow-up appointment. Patient verbalized understanding and denies any questions at time of discharge. Patient instructed to call MD/LIP with any additional questions after discharge. E: Discharge teaching complete and patient is prepared for discharge. P: Patient sent home with written and verbal instructions via transport in stable condition. Signature: Harriett Renteria RN Final Disposition/Discharge: Disposition/Discharge Information: Discharge/Transfer Information: ? Discharge/Transfer Date/Ogju02-Quy-7483 21:07 ? Discharged Accompanied Bysignificant other/partner ? Discharge Modeambulatory ? Transportation Methodprivate car ? Final DispositionHome Electronic Signatures: Stefany Whiting I (RN) (Signed 22-Sep-2017 21:07) Authored: Final Disposition/Discharge Harriett Renteria (RUSLAN) (Signed 22-Sep-2017 19:26) Authored: Discharge Planning Note, Final Disposition/Discharge Dania Forte) (Signed 21-Sep-2017 02:25) Authored: Discharge Planning Note Last Updated: 22-Sep-2017 21:07 by Stefany Whiting I (RN) EMERGENCY DEPARTMENT Observed: 09/21/2017 Status: F Source: [place] SUMMARY 1:04 AM [facility] Medical Records Department [address] [place] [address] Emergency Department Summary 09/20/17 2317 MR#: [id number] Acct: [id number] Name: ALY GUY Rep #: [id number] : 1990 27 From: Henrietta Samayoa MD [...] and preeclampsia with her previous . Her FLATBED PRESS OPERATOR is with in [place]. Physical Examination: Vital signs are unremarkable. Patient's [...] with Dr. Paredes, on-call for the patient's FLATBED PRESS OPERATOR. He advises that patient needs to be in a facility with neurology as well as maternal- medicine, and he does not have that available at [place]. After speaking with patient she would prefer to stay with and go to their main campus. I spoke with Dr. Lara, FLATBED PRESS OPERATOR, and patient has been accepted in transfer. She will speak with their maternal medicine doctors regarding anticoagulant and call me back if I am to start something here. Treatment Plan: [] Disposition: Transfer Impression: 1. First trimester 2. Dural venous thrombosis This note was generated with Zeeboation software. It may contain incorrect words, spelling, [...] your Primary Care Provider. Call [facility] ([phone]) or report to the closest Emergency Room. Call 911 if necessary. 09/21/17 0104 <Electronically signed by Henrietta Samayoa MD> Date Henrietta Samayoa MD Cosigner Signature (If Indicated): Date CC: No Primary Care Physician BRAIN/HEAD W/WO Observed: 09/20/2017 Status: F Source: [place] CONTRAST 9:38 PM [facility] Imaging Services [address] [place] [address] Brain/Head W/WO Contrast MR#: [id number] Acct: [id number] Name: ALY GUY Cory Rep #: [id number] : 1990 F 27 From: Massimo Sutton MD PCP: Care Physician, No Primary Status: REG ER Study: Brain/Head W/WO Contrast Date of Exam: 09/20/17 Exam# [id number] Ordering Dr: Henrietta Samayoa MD STUDY: CT [...] No Primary Care Physician; Henrietta Samayoa MD Patcher Wood Welder: Signed URINALYSIS, COMPLETE Collected: 09/20/2017 Status: F Source: [place] 9:00 PM [facility] Order Comment: How was Urine Obtained? [...] URINE SEEN Performed By: #### L400.0001 #### [facility] [address] [place], [address] CBC W/DIFF, AUTOMATED Collected: 09/20/2017 Status: F Source: [place] 8:52 PM [facility] TYPE CODE TESTS RESULT OUT OF [...] Lymph 3.03 Performed By: #### L100.0100 #### [facility] [address] [place], [address] BASIC METABOLIC Collected: 09/20/2017 Status: F Source: [place] PROFILE ([facility]) 8:52 PM [facility] TYPE CODE TESTS RESULT OUT OF [...] Performed By: #### L500.2500, L500.3400, L501.2450 #### [facility] [address] [place], [address] LIVER PROFILE Collected: 09/20/2017 Status: F Source: [place] 8:52 PM [facility] TYPE CODE TESTS RESULT OUT OF [...] Performed By: #### L500.2500, L500.3400, L501.2450 #### [facility] [address] [place], [address] LIPASE Collected: 09/20/2017 Status: F Source: [place] 8:52 PM [facility] TYPE CODE TESTS RESULT OUT OF RANGE REFERENCE UNITS LAB L501.2450 73-393 U/L Normal LIPASE 113 Performed By: #### L500.2500, L500.3400, L501.2450 #### [facility] [address] [place], [address] PROGRESS Observed: 09/07/2017 Status: COMPLETED Source: [place] 8:02 PM [facility] REPOSITORY HNO ID: [id number] Author: Jeni Garsia (Pa) Service: (none) Author Type: Physician Backup Administrative Coordinator Type: Progress Notes Filed: 09/07/2017 8:12 [...] OINTMENT - WOUND CULTURE AND GRAM STAIN DEANDRE Meade Observed: 09/07/2017 Status: COMPLETED Source: [place] 7:[address] [facility] REPOSITORY Office Visit (WSTR) ALY GUY ([id number]) 1990 F Date Time Provider Department 09/07/17 7:15 PM JENI GARSIA) [facility] During your visit today, we recorded the [...] CULTURE AND GRAM STAIN [SQWCUL] Order #: [id number] Prescriptions as of 09/07/2017 Sig: MUPIROCIN 2 [...] 09/07/17 WOUND Observed: 09/07/2017 Status: F Source: [place] CULTURE/STAIN 5:[address] [facility] REPOSITORY Sp. Request/Comment: - Swab [...] <=0.5 F Performed By: #### WCUL #### [facility] [address] [place], [place] [address] 12 LEAD ELECTROCARDIOGRAM Observed: 08/31/2017 Status: F Source: [place] 2:33 PM [facility] Cardiovascular Services [address] [place] [address] 12 Lead EKG 08/30/17 0229 MR#: [id number] Acct: [id number] Name: ALY GUY Rep #: [id number] : 1990 27 From: Fernando Jones MD Attending Dr: Status: DEP Ordering Dr: Henrietta Samayoa MD Date: 08/30/17 [...] ECG Confirmed by FERNANDO JONES MD ([id number]), news assignment editor BAM LARA (56) on 08/31/2017 2:33:40 PM Referred By: TOMMY Confirmed By:FERNANDO JONES MD 08/31/17 1433 Date Fernando Jones MD CC: No Primary Care Physician; Henrietta Samayoa MD Signed EMERGENCY DEPARTMENT Observed: 08/30/2017 Status: F Source: [place] SUMMARY 5:40 AM [facility] Medical Records Department [address] [place] [address] Emergency Department Summary 08/30/17 0252 MR#: [id number] Acct: [id number] Name: ALY GUY Rep #: [id number] : 1990 27 From: Henrietta Samayoa MD [...] center. She has not yet seen an FLATBED PRESS OPERATOR. She had one prior that was complicated [...] 2. Anxiety This note was generated with Zeeboation software. It may contain incorrect words, spelling, and punctuation that were not noted in review of the chart prior to signing ED Disposition - Plan for ED Patient: Chief Complaint: Chest Pain Referrals: NurseDANYEL [PHYSICIAN LINOLEUM TILE LAYER] - What to do if you have Problems For any increased pain, shortness of breath, bleeding, nausea or vomiting, chest pain, or any unexpected problems, contact your Primary Care Provider. Call Context app Registry ([phone]) or report to the closest Emergency Room. Call 911 if necessary. 08/30/17 0540 <Electronically signed by Henrietta Samayoa MD> Date Henrietta Samayoa MD Cosigner Signature (If Indicated): Date CC: No Primary Care Physician DISCHARGE INSTRUCTION Observed: 08/30/2017 Status: F Source: [place] 3:43 AM [facility] Medical Records Department [address] [place] [address] Discharge Instruction 08/30/17 0342 MR#: [id number] Acct: [id number] Name: ALY GUY Rep #: [id number] : 1990 27 From: Henrietta Samayoa MD [...] your Primary Care Provider. Call [facility] ([phone]) or report to the closest Emergency Room. Call 911 if necessary. 08/30/17 0343 <Electronically signed by Henrietta Samayoa MD> Date Henrietta Samayoa MD Cosigner Signature (If Indicated): Date CC: No Primary Care Physician CBC W/DIFF, AUTOMATED Collected: 08/30/2017 Status: F Source: [place] 2:40 AM [facility] TYPE CODE TESTS RESULT OUT OF [...] Lymph 3.21 Performed By: #### L100.0100 #### [facility] [address] [place], [place], [address] URINALYSIS, COMPLETE Collected: 08/30/2017 Status: F Source: [place] 2:40 AM [facility] Order Comment: How was Urine Obtained? [...] URINE SEEN Performed By: #### L400.0001 #### [facility] [address] [place], [place], [address] BASIC METABOLIC Collected: 08/30/2017 Status: F Source: [place] PROFILE (BMP) 2:40 AM [facility] TYPE CODE TESTS RESULT OUT OF [...] Performed By: #### L500.2500, L500.3400, L501.2450 #### [facility] [address] [place], [place], [address] LIVER PROFILE Collected: 08/30/2017 Status: F Source: [place] 2:40 AM [facility] TYPE CODE TESTS RESULT OUT OF [...] Performed By: #### L500.2500, L500.3400, L501.2450 #### [facility] [address] [place], [place], [address] LIPASE Collected: 08/30/2017 Status: F Source: [place] 2:40 AM [facility] TYPE CODE TESTS RESULT OUT OF RANGE REFERENCE UNITS LAB L501.2450 73-393 U/L Normal LIPASE 121 Performed By: #### L500.2500, L500.3400, L501.2450 #### [facility] [address] [facility] [place], [address] IGP W/HPV RFX Collected: 07/13/2017 Status: F Source: [place] [id number] 4:08 PM [facility] REPOSITORY Order Comment: LMP: 06/16/17 TYPE CODE TESTS RESULT OUT OF RANGE REFERENCE UNITS LAB [id number](LO INC) Normal See Ref Lab Diagnosis: Report Performed By: #### [id number] #### [place] [address] PATHOLOGY ([facility]) Observed: 07/13/2017 Status: F Source: [facility] 12:00 AM REPOSITORY FINAL GYNECOLOGIC CYTOLOGY REPORT [id number] SPECIMEN ADEQUACY Satisfactory for Evaluation. Endocervical cells/transformation zone component present. GENERAL CATEGORIZATION Epithelial Cell Abnormality DESCRIPTIVE DIAGNOSIS Atypical squamous cells of undetermined significance. COMMENT High Risk HPV was ordered and performed at [facility] Laboratory. Results are reported below in this [...] SCREENING CERVICAL/ENDOCERVICAL THIN PREP VIAL Performed at [facility], [address] [place] [address] Screened by: SOFIYA CARSON Technology Methodology Consultant Signed Out by: KEVAN RAYA MD Reported: 07/20/2017 Performed By: #### MANUFACTURING CHIEF ENGINEER #### [facility] [address] [place] [address] 12 LEAD ELECTROCARDIOGRAM Observed: 04/25/2017 Status: F Source: [place] 1:17 PM [facility] Cardiovascular Services [address] [place] [address] 12 Lead EKG 04/22/17 1648 MR#: [id number] Acct: [id number] Name: ALY GUY Rep #: [id number] : 1990 26 From: Judson Grant MD [...] Normal ECG Confirmed by JUDSON GRANT ([id number]), news assignment editor BAM LARA (56) on 04/25/2017 1:17:32 PM Referred By: TAMMY Confirmed By:JUDSON GRANT 04/25/17 1317 Date Judson Grant MD CC: No Primary Care Physician; Henrietta Samayoa MD Signed ,SERUM,HCG QUALI. Collected: Status: F Source: [place] 04/24/2017 4:10 PM [facility] TYPE CODE TESTS RESULT OUT OF REFERENCE UNITS RANGE LAB L700.7000 0-9 Nonpreg Negative Normal HCGSQUAL NEGATIVE LAB L700.6700 =>Qualitative mIU/mL Normal HCG Qual < 1 triggr Performed By: #### L700.6800 #### [facility] [address] [facility] [place], [address] HIV - [facility] Collected: 04/24/2017 Status: F Source: [place] 4:10 PM [facility] TYPE CODE TESTS RESULT OUT OF RANGE REFERENCE UNITS LAB L3890.6005 Nonreactive Normal HIV - [facility] Non-Reactive Performed By: #### L3890.6005 #### [facility] [address] [facility] [place], [address] EMERGENCY DEPARTMENT Observed: 04/22/2017 Status: F Source: [place] SUMMARY 10:57 PM [facility] Medical Records Department [address] [place] [address] Emergency Department Summary 04/22/17 1659 MR#: [id number] Acct: [id number] Name: ALEXOliALY Rep #: [id number] : 1990 26 From: Henrietta Samayoa MD [...] 0.5 mg p.o. She was observed on cardiac cath lab radiology technologist with no arrhythmias noted. On repeat evaluation she is resting comfortably and symptoms are improved. She be given a prescription for 4 tabs of Ativan only. She is referred to the counseling center for follow-up. Treatment Plan: [] Disposition: Discharge Impression: Panic attack This note was generated with Shopcliq dictation software. It may contain incorrect words, [...] your Primary Care Provider. Call [facility] ([phone]) or report to the closest Emergency Room. Call 911 if necessary. 04/22/17 7101 <Electronically signed by Henrietta Samayoa MD> Date Henrietta Samayoa MD Cosigner Signature (If Indicated): Date CC: No Primary Care Physician DISCHARGE INSTRUCTION Observed: 04/22/2017 Status: F Source: [place] 6:41 PM [facility] Medical Records Department [address] [place] [address] Discharge Instruction 04/22/17 5198 MR#: [id number] Acct: [id number] Name: ALY GUY Rep #: [id number] : 1990 From: Henrietta Samayoa MD PCP: [...] your Primary Care Provider. Call [facility] ([phone]) or report to the closest Emergency Room. Call 911 if necessary. 04/22/17 1841 <Electronically signed by Henrietta Samayoa MD> Date Henrietta Samayoa MD Cosigner Signature (If Indicated): Date CC: No Primary Care Physician ALLERGIES ALLERGIES DATE TYPE / CODE NAME / CODE REACTION SEVERITY SOURCE 03/20/2018 Drug No Known Unknown [place] Allergy/416 Allergies/G147144 [facility] 652046(SNOM 388(RXNORM) [facility] ED CT) Repository Drug/363067 No Known Confucianism 003([facility] [place]) Allergies System Repository ENCOUNTERS ENCOUNTERS ADMIT/DISCHARGE ACCOUNT NUMBER ADMITTING ENCOUNTER LOCATION SOURCE CLASS 03/23/2018/03/23/[id number] [facility] om: [id number] 03/20/2018/03/20/[id number] ding:WPOUTRo Repository om: WP013 03/20/2018 [id number] Ambulatory [facility] ding:ED Repository 03/18/2018/03/18/19 [id number] Emergency Nella[address] ding:ED Repository 03/16/2018/03/16/19 [id number] José Antonio Friedman [address] ding:SH.Lab Health System Repository 03/16/2018/03/16/[id number] System :[facility] Repository om: [id number] 03/16/[id number] Repository 03/14/2018 [id number] Ambulatory [facility] ding:LAB.FUT Repository URE 03/13/2018 [id number] Ambulatory [facility] ding:LAB Repository 02/15/2018/02/16/[id number] Health System :[facility] Repository om: [id number] 01/27/2018 [id number] Ambulatory [facility] ding:LAB Repository 01/26/2018/01/27/[id number] System :[facility] Repository om: [id number] 01/15/2018/01/16/20 [id number] Ambulatory [address] ding:WPOUTRo Repository om: WP013 01/12/2018/01/13/[id number] System :[facility] Repository om: Room 4 01/03/2018 [id number] Ambulatory [facility] ding:LAB.FUT Repository URE 12/13/2017/12/14/19 [id number] José Antonio Friedman [address] System :[facility] Repository om: [id number] 11/28/2017/11/29/19 [id number] Ambulatory [address] Health System :[facility] Repository 11/21/2017/11/22/19 [id number] GouldJosé Antonio [address] ding:[facility] System Repository 11/21/2017 [id number] Ambulatory [address] [place] [address] Repository 10/31/2017/11/01/19 [id number] Nicolasa Friedman[address] ding:[facility] Repository 10/31/2017/11/01/[id number] System :[facility] Repository om: [id number] 10/31/2017 [id number] Ambulatory [address] [place] [address] Repository 10/09/2017 [id number] Ambulatory [facility] Repository 10/09/2017/10/10/19 [id number] Drew [address] ding:[facility] System Repository 10/09/2017 [id number] Ambulatory [address] [place] [address] Repository 10/06/2017/10/07/[id number] Health System :[facility] Repository 10/05/2017/10/06/[id number] Health System :[facility] Repository 10/03/2017/10/04/[id number] System :[facility] Repository om: [id number] 09/29/2017/09/30/19 [id number] Emergency [place] [address] [place] [address] ding:ED Repository 09/25/2017/09/26/[id number] Health System :[facility] Repository 09/21/2017 [id number] Ambulatory [facility] Repository 09/21/2017/09/23/19 [id number] SAM, Inpatient UHCBuilding: [place] [address] R Encounter AC3IRgee: Hospitals [id number]: Repository [id number] 09/20/2017/09/22/19 [id number] Emergency Nella [place] 18 [facility] ding:ED Repository 09/07/2017/09/09/19 [id number] Ambulatory [address] Repository 09/04/2017/09/05/19 [id number] José Antonio Friedman [address] System :[facility] Repository om: [id number] 08/30/2017/08/31/19 [id number] Emergency [place] ding:ED Repository 07/13/2017/07/14/19 [id number] Junior Adriana [address] ding:[facility] System Repository 07/13/2017/07/14/[id number] System :[facility] Repository om: Room 3 07/04/2017/07/05/19 [id number] Junior Adriana [address] :[facility] Repository om: Room 1 06/22/2017/06/23/19 [id number] [place], Ambulatory [place] [address] [address] eBuilding:[facility] oom: Room 2 Repository 04/25/2017/04/25/19 [id number] Ambulatory BMSBuilding: [place] 18 [facility] Repository 04/24/2017/04/24/19 [id number] Ambulatory Nella [place] 18 [facility] ding:EDREF Repository 04/22/2017/04/22/19 [id number] Emergency [place] 18 [facility] ding:ED Repository PAYERS PAYERS ENCOUNTER GUARANTOR PAYER SUBSCRIBER SOURCE 03/20/2018 ALY [id number] Primary ALY GILMORE [facility] CLAUDINEOB: [address] Number: [id number] Hospital [address]Zdm: [phone]) [id number] Repository [phone] () Date:2018-03-20[address]ATTN: [place] [address]WI: 03/20/2018 Secondary NOT GIVENUNK [place] Insurance:SELF PAY [facility] Number: Effective Repository Date:2018-03-20 03/20/2018 ALY Cory [id number] Primary ALY Ray [place] [address] Insurance:CARESOURCEP [facility] [address] Number: [id number] Hospital [address]Gwl: [phone]) [id number] Repository [phone] () Date:2018-03-20 [address]ATTN: [place] [address]GX: 03/20/2018 Secondary NOT GIVENUNK [place] Insurance:SELF PAY [facility] Number: Effective Repository Date:2018-03-20 03/18/2018 ALY SMITH29 Primary ALY Ray [address] [address] Insurance:CARESOURCEP [facility] [address] Number: [id number] Hospital [address]Qjx: [phone]) [id number] Repository [phone] () Date:2018-03-18 [address]ATTN: [place] [address]YT: 03/18/2018 Secondary NOT GIVENUNK [place] Insurance:SELF PAY [facility] Number: Effective Repository Date:2018-03-18 03/16/2018 ALY CHOWOB: Primary ALY ALEXSDOB: [place] E Insurance:Caresourc [id number] [place] [address] Number: E [place]OUTH Repository [place], [place] [id number] [place] [phone]: Date:Plan [id number]: Name:[facility] O Box () [address] [place] [address] () [id number]: 03/14/2018 ALY SMITH29 Primary ALY Castro[address] Insurance:CARESOURCEP GROVESDOB: [address] olicy Number: [id number] Hospital [address]Jow: [phone]) [id number] Repository [phone] () Date:2018-03-14[address]ATTN: [place] [address]YT: 03/14/2018 Secondary NOT GIVENUNK [place] Insurance:SELF PAY [facility] Number: Effective Repository Date:2018-03-14 03/13/2018 ALY SMITH29 Primary ALY Castro[address] Insurance:CARESOURCEP GROVESDOB: [address] Number: [id number] Hospital [address]Rls: 330 [id number] Repository [phone] () Date:2018-03-13[address]ATTN: [place] [address]KI: 03/13/2018 Secondary NOT GIVENUNK [place] Insurance:SELF PAY [facility] Number: Effective Repository Date:2018-03-13 01/27/2018 ALY SMITH29 Primary ALY Castro[address] Insurance:CARESOURCEP GROVESDOB: [address] olicy Number: [id number] Hospital [address]Dzm: 330 [id number] Repository [phone] () Date:2018-01-27[address]ATTN: [place] [address]GY: 01/27/2018 Secondary NOT GIVENUNK [place] Insurance:SELF PAY [facility] Number: Effective Repository Date:2018-01-27 01/15/2018 ALY JOHNSONS311 Primary ALY [address] Insurance:CARESOURCEP GROVESDOB: [address] Number: [id number] Hospital [address]Vut: ([phone]) [id number] Repository [phone] () Date:2018-01-15 [address]ATTN: [place] [address]SW: 01/15/2018 Secondary NOT GIVENUNK [place] Insurance:SELF PAY [facility] Number: Effective Repository Date:2018-01-15 01/03/2018 ALY SMITH11 Primary ALY Ray [place] [address] [facility] [address] Insurance:CARESOURCEP GROVESDOB: [facility] Number: [id number] Hospital [address]Iif: ([phone]) [id number] Repository [phone] () Date:2018-01-01 [address]ATTN: [place] [address]UL: 01/03/2018 Secondary NOT GIVENUNK [place] Insurance:SELF PAY [facility] Number: Effective Repository Date:2018-01-01 11/28/2017 ALY Ray Primary ALY Ruby GROVESDOB: Insurance:1500 GROVESDOB: [facility]IA[facility]ARE [id number] [facility] Repository STREET[address]T Number: Effective STREETAPT [facility] Date:2017-10-31 [place], [place] [address]Wnh: ([phone]) [phone] 428[address]Axt: () Name:CD:[id number] 252-[address] ()Tel: [phone]: ([phone]) [phone] 11/21/2017 ALY Ray Primary ALY JOHNSONSDOB: Insurance:1500 GROVESDOB: [facility] [id number] [facility] Repository STREET[address] Number: Effective [address], [place] Date:2017-10-31 [place], [place] [address]Yur: (152) [id number] [id number]: () Name:CD:[id number] O [phone] [place] [address] ()Tel: [phone]: ([phone]) [phone] 11/21/2017 ALY JOHNSONSDOB: Primary ALY GROVESDOB: [place] [facility] [id number] [facility] olicy Number: E [facility] Repository [address], [place] [id number] [address] [place] [id number]: Date:Plan [id number]: Name:Health O Box () [address] [place] [address] () [id number]: 10/31/2017 ALY Ray Primary ALY Ruby BATHSDOB: Insurance:[facility]: [facility] E MCAIDPolicy Number: [id number] [facility] Effective [facility] Repository [address], [place] Date:2017-10-31 [address] [address]Dah: [id number] [phone]: Name:CD:[id number] () [address] [place] [address] ()Tel: [phone]: (WP) [phone] 10/31/2017 ALY Ray Primary ALY CHOWOB: Insurance:[facility] GROVESDOB: [facility]IANA[facility]ARE [id number] [facility] Hospital[facility] PLPolicy [facility] STREETAPT Number: Effective [address]RE[address], [place] Date:2017-10-03 [address], [place] [address]Vgf: [phone] [id number]: (HP) Name:CD:[id number] O [phone] [place] [address] ()Tel: [phone]: (WC) [phone] 10/31/2017 ALY GROVESDOB: Primary ALY GROVESDOB: [place] E Insurance:[facility] [id number] [place] [address] Number: E [facility] Repository [facility] [place] [phone] [address] [phone]: Date:Plan [id number]: Name:Health O Box (HP) [address] [place] [address] () [id number]: 10/09/2017 ALY GROVESDOB: Primary ALY GROVESDOB: [place] E Insurance:[facility] [id number] [place] [address] Number: [facility] Repository [facility], [place] [id number] [address], [place] [phone]: Date:Plan [id number]: Name:[facility] O Box () [address] [place] [address] () [id number]: 10/09/2017 ALY M Primary ALY Cory PerdomoConfucianism GROVESDOB: Insurance:CARESOURCE GROVESDOB: [facility] MCAIDPolicy Number: [id number] [facility] STREETAPT Date:2017-10-06 - STREETAPT [address], [place] [id number] [place], [place] [address]Asv: (687) Name:CD:[id number]: (HP) [address] [place] [address] [phone]: [phone]) () [phone] (WP) 10/09/2017 ALY JOHNSONSDOB: Primary ALY [facility] [place] Insurance:[facility] [id number] [facility] Number: [facility] Repository [facility], [id number] [place], [place] [address]Kyb: Date:[facility] [address]Pld: Name:HealthP O Box (HP) [address] [place] [address] () [phone]: 10/06/2017 ALY Ray Primary ALY Ruby [facility]: [facility]: [facility] Number: [id number] System [facility] Effective [facility] Repository [facility] Date:2017-08-29 - [facility] [place] [address]Ymo: [id number] [place] [address]Bbu: Name:CD:[id number] (HP) [address] [place] [address] ()Tel: [phone]: (WP) [phone] 10/05/2017 ALY Ray Primary ALY JOHNSONOHOB: Insurance:1500 GROVESDOB: [facility] [id number] System [facility] Repository [facility] Number: Effective [facility] [place], [place] [address]Jdx: Date:2017-07-13 , [place] [address]Qna: [id number] (HP) Name:CD:[id number] O ()Tel: (090) [address], [place] [phone] (WP) [phone]: 10/03/2017 ALY Ray Primary ALY JOHNSONSDOB: Insurance:1500 GROVESDOB: [facility] [id number] System [facility] PLPolicy [facility] Repository [address] Number: Effective [address]RE[address], [place] Date:2017-10-03 [place], [place] [address]Xta: [phone] [id number] [address]28[address]Qpm: () Name:CD:[id number] O [phone] [place] [address] ()Tel: [phone]: (wp) [phone] 09/29/2017 ALY JOHNSONS311 Primary ALY Ray [place] [facility] Insurance:CARESOURCEP GROVESDOB: [address] olicy Number: [id number] Hospital [address]Ida: [phone]) [id number] Repository [phone] () Date:2017-09-29 [address]ATTN: [place] [address]FM: 09/29/2017 Secondary NOT GIVENUNK [place] Insurance:SELF PAY [facility] Number: Effective Repository Date:2017-09-29 09/25/2017 ALY Ray Primary [facility]Y [facility]1500 Self GROVESDOB: [facility] PayPolicy Number: [id number] System [facility] Effective [facility] Repository [address]T Date:2017-09-04 - STREET [address], [place] [id number] [address] [place] [address]Obg: (496) Name:CD:[id number]: (HP) [phone] (HP) (WP) 09/21/2017 ALY Ray Primary ALY Cory [facility]: Insurance:CaresourceP GROVESDOB: [facility] olicy Number: [id number] Repository [facility] [id number] [facility] APT Date:Plan [address], [place] Name:HealthP [address], [place] [address]Lyy: [phone] [place], [place] [address]Zik: () [phone]: () [phone] 09/21/2017 ALY Ray Primary ALY Ray [facility]: Insurance:[facility]OB: [facility] olicy Number: [id number] Repository [facility] [id number] [facility] APT Date:[facility] [address] [place] [address] Name:HealthP [address] [place] [address]Cmo: [phone] 5000DayWest [place], [place] [address]Wrw: (HP) [phone]: () [phone] 09/20/2017 ALY JOHNSONS311 Primary ALY Ray [place] [facility] Insurance:CARESOH. C. W[facility] HOSPITALOB: [address] Number: [id number] [facility] [address]Wfc: [phone]) [id number] Repository [phone] () Date:2017-09-20P [address]ATTN: [place] [address]RZ: 09/20/2017 Secondary NOT GIVENUNK [place] Insurance:SELF PAY [facility] Number: Effective Repository Date:2017-09-20 09/04/2017 ALY Ray Primary ALY Ray [facility] Self [facility]: [facility] PayPolicy Number: [id number] System [facility] Effective [facility] Repository [address] Date:2017-09-04 - [place] [address], [place] [id number] [address] [place] [address]Bgg: (870) Name:CD:[id number]: (HP) [phone] () () 08/30/2017 ALY JOHNSONS311 Primary NOT GIVENUNK [place] Insurance:SELF PAY [facility] [address]Pzq: (419) Number: Effective Repository [phone] (HP) Date:2017-08-30 07/13/2017 ALY Ray [facility]: [facility]: [facility] Number: [id number] System BRIDGE Effective [place] Repository [address] Date:2017-07-13 - [place]YSVILL [place], [place] [address]Hbp: [id number] [place], [place] [address]Bnw: Name:CD:[id number] (HP) [address] [place] [address] (HP)Tel: [phone]) [phone]: (WP) [phone] 07/13/2017 ALY Ray [facility]: Insurance:[address] [place], [place] [address]OB: [facility] [id number] System [facility] PLPolicy [place] Repository [address] Number: Effective [address]ET[address]YS[address] [place], [place] [address]Hdz: Date:2017-07-04, [place] [address]Ufm: [id number] (HP) Name:CD:[id number] O (HP)Tel: (540) [address], [place] [phone] (WP) [phone]: 07/04/2017 ALY Ray [facility] AYL Ray [facility] Hospital[facility]: Insurance:[address] [place], [place] [address]OB: [facility] [id number] System [address]Policy [place] Repository [address] Number: Effective STREETPERRYSVILL [place], [place] [address]Cfp: Date:2017-06-22, [place] [address]Lgt: [id number] (HP) Name:CD:[id number] O (HP)Tel: (763) [address], [place] [phone] (WP) [phone]: 06/22/2017 ALY Ray Primary ALY JOHNSONOHOB: Insurance:[address] [place], [place] [address]OB: [facility] [id number] [facility] [address] Repository [facility], Number: Effective [place], [place] [address]Myt: Date:2017-06-22 - [place] [address]Puw: [id number] (HP) Name:CD:[id number] O ()Tel: [phone] [address], [place] [phone] () [address]JK: 04/25/2017 ALY ROCA Primary NOT GIVENUNK [place] Insurance:SELF PAY [facility] [address]Eyt: (754) Number: Effective Repository [phone] () Date:2017-04-25 04/24/2017 Aly Roca Primary NOT GIVENUNK [place] Insurance:SELF PAY [facility] [address]Kme: (559) Number: Effective Repository [phone] () Date:2017-04-24 04/22/2017 Aly Roca Primary Aly Ray [place] [facility]: [facility] Number: [id number] [address]Zrp: [phone]) [id number] Repository [phone] () Date:2017-04-22P [address]ATTN: [place] [address]VL: 04/22/2017 Secondary NOT GIVENUNK N[place] Insurance:SELF PAY [facility] Number: Effective Repository Date:2017-04-22
== END 2018-03-18 17:57 | disposition home or self-care (01) ==
LOC: ED 17:45
PROVIDERS: Emergency Provider Emergency Medicine
DX: O26.893 Other specified pregnancy related conditions, third trimester (principal); H66.93 Otitis media, unspecified, bilateral; Z3A.36 36 weeks gestation of pregnancy
CPT/HCPCS: 99283

== ENCOUNTER 2018-03-20 17:55 | Outpatient (CLI) | payer MEDICAID, SELFPAY ==
[2018-03-20 17:33] VITALS: BMI 28.9
[2018-03-20 18:08] VITALS: BMI 29.1
[2018-03-20 18:41] LABS: Mucous, Urine 0 SEEN /hpf (<or=2+); Red Blood Cells-Urine 0 SEEN /hpf (0-5)
[2018-03-20 18:55] LABS: Color, Urine Yellow (Yellow); Glucose, Dipstick Normal (Normal); Ketone-Dipstick Negative (Negative); Leukocyte Esterase-Dipstick 500 /ul (Negative); Nitrite-Dipstick Negative (Negative); Occult Blood-Urine 10 /ul (Negative); Protein-Dipstick Negative (Negative); Urine Bilirubin Dipstick Negative (Negative); Urine Clarity Sl. Cloudy (Clear); Urine Urobilinogen Normal (Normal)
[2018-03-20 19:08] LABS: Bacteria 1+ /hpf (None Seen); Squamous Epithelial Cells - UA 10-25 SEEN /hpf (5-10); White Blood Cells 0-5 SEEN /hpf (0-5)
--- NOTE | 2018-03-21 03:43 | OB.TRI.NOTE ---
History of Present Illness Date of Service: 03/20/18 Reason For Visit: R/O LABOR Date of Service: 03/20/18 Final LUCILA: 04/08/18 Gestational age: 37 Weeks and 2 Days History of Present Illness: 27 yo female scheduled for repeat C/S at 39 wks in [place]. No PNC here. Presents with back spasms all along back. Reports coughing a lot. Here for check due to back pain. Allergies No Known Allergies Allergy (Verified 03/20/18 18:08) Laboratory Studies: Laboratory Tests 03/20/18 Range/Units 18:15 Urine Color Yellow (Yellow) Urine Clarity Sl. Cloudy (Clear) Urine pH 8.0 (5.0 - 8.0) Ur Specific [place] 1.010 (1.002-1.030) Urine Protein Negative (Negative) mg/dl Urine Glucose (UA) Normal (Normal) mg/dl Urine Ketones Negative (Negative) mg/dl Urine Occult Blood 10 H (Negative) /ul Urine Nitrite Negative (Negative) Urine Bilirubin Negative (Negative) mg/dL Urine Urobilinogen Normal (Normal) mg/dl Ur Leukocyte Esterase 500 H (Negative) /ul Urine RBC 0 SEEN (0-5) /hpf Urine WBC 0-5 SEEN (0-5) /hpf Ur Squamous Epith Cells 10-25 SEEN (5-10) /hpf Urine Bacteria 1+ (None Seen) /hpf Urine Mucus 0 SEEN (<or=2+) /hpf NST - FHR Rate Baby A Baseline: 110-120s with accels to 160-170s Variability:: Moderate Accelerations:: 15 x 15 Decelerations:: None NST Reactive:: Yes, Appropriate for gestational age FHR Category:: Category I Uterine Activity:: No regular UCs noted. Impression/Plan 37 wk female. Back pain False labor likely musculoskeletal pain. UA sent , culture sent (poor clean catch) Comfort measures, rest, tylenol, warm bath or shower, massage Home F/U with usual OB for next visit as scheduled. Encouraged if any sx of labor to go to [facility] for delivery where she has planned
--- OUTSIDE RECORDS SUMMARY | 2018-05-22 23:20 | XMS RPT_ITS ---
:1990 Author Organization OHIP Support Name Relationship Address Phone KELBY GUY Unavailable [address] + [address] [place] [address] UE Unavailable Unavailable Unavailable GROVES, EDWARD Unavailable [address] + [address] [place] [address] UE Unavailable Unavailable Unavailable GROVES, EDWARD Unavailable [address] + [address] [place] [address] UE Unavailable Unavailable Unavailable AARON, VIOLETTE Unavailable Unavailable + ALEXS EDWARD Unavailable [address] + [address] [place] [address] UE Unavailable Unavailable Unavailable GROVES, EDWARD Unavailable [address] + [address] [place] [address] UE Unavailable Unavailable Unavailable GROVES, EDWARD Unavailable [address] [place] [address] UE Unavailable Unavailable Unavailable GROVES, EDWARD Unavailable [address] + [address] [place] [address] UE Unavailable Unavailable Unavailable GROVES, EDWARD Unavailable [address] + [address] [place] [address] UE Unavailable Unavailable Unavailable AARON, VIOLETTE Unavailable Unavailable + AARON, VIOLETTE Unavailable Unavailable + AARON, VIOLETTE Unavailable Unavailable + AARON, VIOLETTE Unavailable Unavailable + GROVES, EDWARD Unavailable [address] + [place] [address] UE Unavailable Unavailable Unavailable AARON VIOLETTE Unavailable Unavailable + AARON VIOLETTE Unavailable Unavailable + KELBY GUY Unavailable [address] + [place] [address] UE Unavailable Unavailable Unavailable MARY Unavailable [address] + [address] [place] [address] MALENA EDJOJO Unavailable [address] + [place] [address] KELBY GUY Unavailable [address] + [place] [address] SPENO Unavailable [address] [phone] [place] [address] KELBY GUY Unavailable [address] + [place] [address] SPENO Unavailable [address] [phone] [place] [address] KELBY GUY Unavailable [address] + [place] [address] SPENO Unavailable [address] [phone] [place] [address] Care Team Providers Name Role Phone SAM, CLODAGH R Admitting Unavailable SAM, ELENADAGH R Referring Unavailable UNKNOWN, PCP Primary Care Unavailable Dr. Seymour Butcher Attending Unavailable LULY BARFIELD Attending Unavailable UNKNOWN, PCP Primary Care Unavailable Drew, Dr. Elzbieta Dunbar Attending Unavailable Dr. José Antonio Friedman Referring Unavailable UNKNOWN, PCP Primary Care Unavailable UNKNOWN, PCP Primary Care Unavailable UNKNOWN, PCP Primary Care Unavailable UNKNOWN, PCP Primary Care Unavailable UNKNOWN, PCP Primary Care Unavailable Primay Care Physicia, No Primary Care Unavailable Henrietta Samayoa Attending Unavailable Primay Care Physicia, No Primary Care Unavailable Scott Ham Attending Unavailable FOLRENCE CASIANO Attending Unavailable FLORENCE CASIANO Referring Unavailable Primay Care Physicia, No Primary Care Unavailable FLORENCE CASIANO Attending Unavailable Primay Care Physicia, No Primary Care Unavailable Primay Care Physicia, No Primary Care Unavailable Henrietta Samayoa Attending Unavailable Adele Mitchell Attending Unavailable Primay Care Physicia, No Primary Care Unavailable Primay Care Physicia, No Primary Care Unavailable Jonny Hurd Attending Unavailable Kendall Nieto Attending Unavailable Kendall Nieto Referring Unavailable Primay Care Physicia, No Primary Care Unavailable Primay Care Physicia, No Primary Care Unavailable Henrietta Samayoa Attending Unavailable Henrietta Samayoa Attending Unavailable Primay Care Physicia, No Primary Care Unavailable Adele Blanco Attending Unavailable SANE Referring Unavailable SANE Primary Care Unavailable FLORENCE CASIANO Attending Unavailable FLORENCE CASIANO Referring Unavailable Primay Care Physicia, No Primary Care Unavailable FLORENCE CASIANO Attending Unavailable Primay Care Physicia, No Primary Care Unavailable FLORENCE CASIANO Referring Unavailable SANE Attending Unavailable SANE Primary Care Unavailable Junior, Adriana Consulting Unavailable Oberhauser, Mary L Primary Care Unavailable Oberhauser, Mary L Admitting Unavailable Oberhauser, Mary L Attending Unavailable Junior, Adriana Attending Unavailable Oberhauser, Mary L Primary Care Unavailable Junior, Adriana Admitting Unavailable Junior, Adriana Attending Unavailable Oberhauser, Mary L Primary Care Unavailable Junior, Adriana Attending Unavailable Oberhauser, Mary L Primary Care Unavailable Junior, Adriana Attending Unavailable Oberhauser, Mary L Primary Care Unavailable Junior, Adriana Admitting Unavailable Junior, Adriana Attending Unavailable Oberhauser, Mary L Primary Care Unavailable Leggett, José Antonio A Attending Unavailable Oberhauser, Mary L Primary Care Unavailable Leggett, José Antonio A Admitting Unavailable Zia, José Antonio A Attending Unavailable Oberhauser, Mary L Primary Care Unavailable Zia, José Antonio A Attending Unavailable Oberhauser, Mary L Primary Care Unavailable Zia, José Antonio A Attending Unavailable Oberhauser, Mary L Primary Care Unavailable Drew, Elzbieta K Admitting Unavailable Drew, Elzbieta K Attending Unavailable Oberhauser, Mary L Primary Care Unavailable Leggett, José Antonio A Admitting Unavailable Leggett, José Antonio A Attending Unavailable Oberhauser, Mary L Primary Care Unavailable Leggett, José Antonio A Attending Unavailable Oberhauser, Amry L Primary Care Unavailable Zia, José Antonio A Admitting Unavailable Leggett, José Antonio A Attending Unavailable Oberhauser, Mary L Primary Care Unavailable Leggett, José Antonio A Admitting Unavailable Leggett, José Antonio A Attending Unavailable Oberhauser, Mary L Primary Care Unavailable Cruzito Paredes Attending Unavailable Oberhauser, Mary L Primary Care Unavailable Zia, José Antonio A Attending Unavailable Oberhauser, Mary L Primary Care Unavailable Zia, José Antonio A Attending Unavailable Oberhauser, Mary L Primary Care Unavailable Leggett, José Antonio A Attending Unavailable Oberhauser, Mary L Primary Care Unavailable Leggett, José Antonio A Admitting Unavailable Leggett, José Antonio A Attending Unavailable Oberhauser, Mary L Primary Care Unavailable Zia, José Antonio A Attending Unavailable Oberhauser, Mary L Primary Care Unavailable PROBLEMS PROBLEMS DATE TYPE CONDITION / CODE ATTENDING STATUS SOURCE 03/14/2018 Unknown Z20.5 - Contact FLORENCE CASIANO with and Community (suspected) Hospital exposure to viral Repository hepatitis / Z20.5(ICD-10) 03/14/2018 Unknown F19.10 - Other FLORENCE CASIANO Active [place] psycho[facility] Community substance abuse, Hospital uncomplicated / Repository F19.10(ICD-10) 10/09/2017 Final diagnosis Crohn's disease, Dr. Drew Active [facility] (discharge) unspecified, [facility] without Repository complications / K50.90(ICD-10) 10/09/2017 Final diagnosis Personal history of Dr. Drew Active [place] (discharge) dis of the nervous [facility] sys and sense Repository organs / Z86.69(ICD-10) 10/09/2017 Final diagnosis Personal history of Dr. Drew Active [facility] (discharge) comp of preg, [facility] chldbrth and the Repository puerp / Z87.59(ICD-10) 10/09/2017 Final diagnosis Diseases of the Dr. Drew Active [facility] (discharge) dgstv sys comp [facility] , unsp Repository trimester / O99.619(ICD-10) 10/09/[address] Drew Active [facility] (discharge) dependence, [facility] unspecified, Repository uncomplicated / F17.200(ICD-10) 10/09/2017 Final diagnosis [address] Amy Russell (discharge) of / [facility] Z3A.13(ICD-10) Repository 09/22/2017 Admitting Diseases of the Dr. Amy Butcher diagnosis nervous sys comp [facility] , first Repository trimester / O99.351(ICD-10) 09/22/2017 Final diagnosis Diseases of the Dr. Amy Butcher (discharge) nervous sys [facility] , first Repository trimester / O99.351(ICD-10) 09/22/2017 Final diagnosis Migraine, unsp, not Dr. Amy Butcher (discharge) intractable, [facility] without status Repository migrainosus / G43.909(ICD-10) 09/22/2017 Final diagnosis [address] Amy Butcher (discharge) of / [facility] Z3A.12(ICD-10) Repository 09/22/2017 Final diagnosis Smoking (tobacco) Dr. Amy Butcher (discharge) complicating [facility] , first Repository trimester / O99.331(ICD-10) 09/22/[address] Amy Butcher (discharge) dependence, [facility] cigarettes, Repository uncomplicated / F17.210(ICD-10) 09/22/2017 Final diagnosis Diseases of the Dr. Amy Butcher (discharge) circ sys [facility] , first Repository trimester / O99.411(ICD-10) 09/22/2017 Final diagnosis Hypotension, Dr. Amy Butcher (discharge) unspecified / [facility] I95.9(ICD-10) Repository 09/22/2017 Final diagnosis Diseases of the Dr. Amy Butcher (discharge) dgstv sys [facility] , first Repository trimester / O99.611(ICD-10) 04/22/2017 Unknown F41.0 - Panic Henrietta Samayoa Active [place] disorder [episodic Community paroxysmal anxiety] Hospital / F41.0(ICD-10) Repository PROCEDURES PROCEDURES No Procedure Records FoundRESULTS RESULTS URINALYSIS, COMPLETE Collected: 03/20/2018 Status: F Source: [place] 6:15 PM [facility] REPOSITORY Order Comment: How was Urine Obtained? FORESTRY TECHNICIAN TO SPECIFY TYPE CODE TESTS RESULT OUT [...] URINE SEEN Performed By: #### L400.0001 #### [facility] [address] [place] [address], [address] Observed: 03/20/2018 Status: F Source: [place] CULTURE, URINE 6:15 PM [facility] REPOSITORY Urine Culture ORGANISM 1: Yeast Flushing Count <1000 Performed By: #### M100.0650 #### [facility] [address] [place] [address], [address] EMERGENCY DEPARTMENT Observed: 03/18/2018 Status: F Source: [place] SUMMARY 6:49 PM [facility] REPOSITORY [facility] Medical Records Department [address] [place] [address] Emergency Department Summary 03/18/18 1731 MR#: [id number] Acct: [id number] Name: ALY GUY Rep #: [id number] : 1990 27 From: Jonny Hurd MD [...] amoxicillin. She will continue to follow-up with [facility] as scheduled. Treatment Plan: [] Disposition: Discharge Impression: Acute otitis media This note was generated with Skopeo[employer]fr dictation software. It may contain incorrect words, [...] your Primary Care Provider. Call [facility] ([phone]) or report to the closest Emergency Room. Call 911 if necessary. 03/18/18 6036 <Electronically signed by Jonny Hurd MD> Date Jonny Hurd MD Cosigner Signature (If Indicated): Date CC: No Primary Care Physician U DRUG SCREEN Collected: 03/16/2018 Status: F Source: [facility] 4:42 PM [facility] REPOSITORY TYPE CODE TESTS RESULT OUT OF RANGE REFERENCE UNITS LAB 06250181(L OINC) U Normal Amph Scr NEGATIVE LAB 73847954(L OINC) U Normal Jordyn Scr NEGATIVE LAB 58186546(L OINC) U Normal Benzodia Scr NEGATIVE LAB 98283979(L OINC) U Normal Cannab Scr NEGATIVE LAB 41152218(L OINC) U Normal Cocaine Scr NEGATIVE LAB 81788896(L OINC) U Normal Opiate Scr NEGATIVE LAB 97963846(L OINC) U Normal PCP Scr NEGATIVE Performed By: #### [id number] #### [facility] [address] [place] [address] Observed: 03/16/2018 Status: F Source: [facility] GROUP B STREP PCR 4:40 PM [facility] REPOSITORY Order Comment: For positive results only; Penicillin is the recommended antibiotic for the treatment of Group B Streptococcal disease. In case of penicillin allergy, Clindamycin may be used. All Negative GBS Screens by PCR will be confirmed by culture. Final Report: Streptococcus Group B screen positive Performed By: #### [id number] #### [facility] Microbiology Subsection [address] [place] [address] HIV - [facility] Collected: 03/13/2018 Status: F Source: [place] 4:28 PM [facility] REPOSITORY TYPE CODE TESTS RESULT OUT OF RANGE REFERENCE UNITS LAB L3890.6005 Nonreactive Normal HIV - [facility] Non-Reactive Performed By: #### L3890.6005 #### [facility] [address] [place], [place], [address] HEPATITIS ABC PROFILE Collected: 03/13/2018 Status: F Source: [place] 4:28 PM [facility] REPOSITORY TYPE CODE TESTS RESULT OUT OF RANGE REFERENCE UNITS LAB L3100.0200 Negative Normal HEP A Negative IgM 6734 LAB L3100.0300 Negative Normal HEP A Negative AB,T.6726 LAB L3100.0400 Negative Normal HB Negative SURF AG LAB L3100.0440 Negative Normal HB Negative CORE [id number] LAB L3100.0460 Negative Normal HEP B Negative [...] to indicate HCV infection. Performed at: - [facility] [id number] Ceramic Tile Installation Helper: Elmer Riley PhD, Phone: [phone] Performed By: #### L3000.0700 #### [facility] (refer to report for specific site) refer to report for address and phone number CBC W/DIFF, AUTOMATED Collected: 01/27/2018 Status: F Source: [place] 11:38 AM [facility] REPOSITORY TYPE CODE TESTS RESULT OUT OF [...] LYMPH 1+ Performed By: #### L100.0100 #### [facility] [address] [place], [place], [address] FIBRONECTIN Collected: 01/15/2018 Status: F Source: [place] 3:15 PM [facility] REPOSITORY Order Comment: Has pt arrived? Y TYPE CODE TESTS RESULT OUT OF RANGE REFERENCE UNITS LAB L205.0100 Normal fFN Negative Performed By: #### L205.0000 #### [facility] [address] [place], [address] URINALYSIS, ROUTINE Collected: 01/15/2018 Status: F Source: [place] (DIPSTICK) 3:00 PM [facility] REPOSITORY Order Comment: How was Urine Obtained? FORESTRY TECHNICIAN TO SPECIFY TYPE CODE TESTS RESULT OUT [...] ESTERASE 500 Performed By: #### L400.2010 #### [facility] [address] [place], [address] Observed: 01/15/2018 Status: F Source: [place] CULTURE, URINE 3:00 PM [facility] REPOSITORY Has pt arrived? Y Urine Culture There are no CLSI standards for interpretation of this Drug/Organism combination. ORGANISM 1: Lactobacillus species Flushing Count >100,000 Performed By: #### M100.0650 #### [facility] [address] [place], [address] GLUCOSE CHALLENGE GEST Collected: 01/03/2018 Status: F Source: [place] 1H 50G 8:56 AM [facility] REPOSITORY TYPE CODE TESTS RESULT OUT OF RANGE REFERENCE UNITS LAB L501.0250 70-140 mg/dL Normal GLU GEST 125 50g 1H Performed By: #### L501.0250 #### [facility] [address] [place], [address] GENETICS - Observed: 12/05/2017 Status: UNK Source: [facility] 8:29 PM HOSPITALS REPOSITORY Chief Complaint Patient was seen on 10/09/17 via Telemedicine as a follow-up after a recent inpatient evaluation and stay at [facility]. History of Present Illness Aly is a 27 yo who was 13+5 at time of our outpatient follow-up based on EDC 04/05/18. She had a recent antepartum admission after transfer from [place] with headache and concern for a new [...] urinary or bowel control. During her [facility] hospital stay, a hypercoagulability work-up was negative, and repeat MRI/MRV ruled OUT the previously suspected venous sinus thrombosis, with Neurology consultation guiding [facility] imaging recommendations and interpretation. Of note, she [...] child was adopted into another family. Krystal mecredes and her partner appear to recall very [...] stay, she was seen primarily by the [facility] team, and follow-up plan of care for [...] Pen 40 MG/0.4ML Subcutaneous Pen-injector Kit; Therapy: (Recorded:29Pan9163) to Recorded Dispense: 0 Days ; #: [...] Pen 40 MG/0.4ML Subcutaneous Pen-injector Kit; Therapy: (Recorded:83Xzi4929) to Recorded One Daily TABS; Therapy: (Recorded:06Oct2017) to Recorded Signatures Electronically signed by : Elzbieta Russell MD; Dec 05 2017 8:29PM EST (Author) US AFTER 1ST Observed: 11/21/2017 Status: F Source: [facility] 9:32 AM [facility] REPOSITORY Exam Date/Time: 11/21/2017 10:12 EDT Reason for Exam: DATES / ANATOMY;Standard Anatomy Report STUDY: US After 1st Trimester 11/21/2017 10:12 am INDICATION: Standard Anatomy. COMPARISON: None. ACCESSION NUMBER(S): [id number] ORDERING CLINICIAN: José Antonio Friedman TECHNIQUE: Routine [...] TETRA PROFILE Collected: 10/31/2017 Status: F Source: [facility] 1:32 PM [facility] REPOSITORY TYPE CODE TESTS RESULT OUT OF RANGE REFERENCE UNITS LAB 75521312(L OINC) *Screen Normal AFP Negative* TP Test Results: LAB 07806967(L week(s) OINC) 17.3 Normal AFP TP Gest Age LAB 03172977(L OINC) Normal AFP Ultrasound TP GA Base Result Comment: 17.3 on 10/31/2017 LAB 45717709(LOINC) 26.6 Normal AFP TP Mat Age LUCILA LAB 07908576(LOINC) Normal AFP TP Race LAB 99188107(LOINC) lb 133 Normal AFP TP Weight LAB 48482782(LOINC) No Normal AFP TP Insulin Dep Diabetes LAB 73695059(LOINC) No Normal AFP TP Mult Gest LAB 69570044(LOINC) ng/mL 43.7 Normal AFP TP AFP Sona EIA LAB 83466010(LOINC) 1.04 Normal AFP TP AFP Mom Value LAB 56004213(LOINC) mIU/mL 78112 Normal AFP TP hCG Value LAB 91498907(LOINC) 0.74 Normal AFP TP hCG Mom LAB 75843472(LOINC) ng/mL 1.69 Normal AFP TP uE3 Value LAB 70599970(LOINC) 1.52 Normal AFP TP uE3 Mom LAB 47313089(LOINC) pg/mL Normal AFP TP NATALIE 368.89 Value EIA LAB 19137062(LOINC) 2.06 Normal AFP TP NATALIE Mom Value LAB 80550552(LOINC) [address] Normal AFP TP OSBR Risk 1 IN LAB 57125743(LOINC) 1723 Normal AFP TP DSR 2nd Times 1IN LAB 98744954(LOINC) 948 Normal AFP TP DSR(by Age) 1IN LAB 54388170(LOINC) Normal AFP TP T18 1:3695 Risk LAB 25262558(LOINC) Not Normal AFP TP T18 (By increased Age) LAB 18676691(LOINC) Normal AFP TP Interp Comment Result Comment: [...] identifies 60% of Trisomy 18 pregnancies. The [place] recommends amniocentesis be offered to women age 35 and older. Recalculations are not recommended when gestational dating by LMP and ultrasound are within 10 days. LAB 03116461(LOINC) AFP TP Normal Comments: Comment Result Comment: Alida Garcia, Ph.D., [facility] Principal Genetics Faculty Research Assistant References: Available Upon Request. Multiples Of Median Cutoffs Abbreviation Definitions For AFP Elevations IDD- Insulin Dep Diabetes Richter 2.5 Black 2.8 OSBR- Open Spina Bifida IDD 2.0 Twins 4.5 Risk DSR Cutoff 1:270 DSR- Down Syndrome Risk T18 Cutoff 1:100 T18- Trisomy 18 Down Syndrome and Trisomy 18 screening are considered Investigational For further inquiries contact [email or web address] at [phone]. Performed At: [facility] [address] [place], [place] [id number] Yohannes Olson MD Ph:[phone] Performed By: #### [id number] #### [place] [address] EMERGENCY DEPARTMENT Observed: 09/30/2017 Status: F Source: [place] SUMMARY 8:25 AM [facility] REPOSITORY [facility] Medical Records Department [address] [place] [address] Emergency Department Summary 09/29/17 0449 MR#: [id number] Acct: [id number] Name: ALY GUY Rep #: [id number] : 1990 27 From: Scott Ham MD [...] lab work. She will follow-up with her [facility] Treatment Plan: [] Disposition: [] Impression: [] Vaginal bleeding in This note was generated with Hively software. It may contain incorrect words, spelling, [...] Impression: [] This note was generated with Hively software. It may contain incorrect words, spelling, [...] need for her to follow with her public health teacher in the next few days return for [...] your Primary Care Provider. Call [facility] ([phone]) or report to the closest Emergency Room. Call 911 if necessary. 09/30/17 0017 <Electronically signed by Scott Ham MD> Date Scott Ham MD 09/30/17 0825<Electronically signed by Myra Carroll MD> Cosigner Signature (If Indicated): Date Myra Carroll MD CC: No Primary Care Physician DISCHARGE INSTRUCTION Observed: 09/29/2017 Status: F Source: [place] 9:27 AM [facility] REPOSITORY [facility] Medical Records Department [address] [place] [address] Discharge Instruction 09/29/17 0900 MR#: [id number] Acct: [id number] Name: ALY GUY Rep #: [id number] : 1990 27 From: Myra Carroll MD PCP: Sean Physician, No Primary Status: REG ER ED Disposition - Plan for ED Patient: Chief Complaint: Vag Bld, Preg Instructions: ED Miscarriage Poss Referrals: Care Physician,No Primary [Primary Care Provider] - Additional Instructions: Follow-up with her public health teacher next few days return for change in symptoms no sex or heavy exertional activity What to do if you have Problems For any increased pain, shortness of breath, bleeding, nausea or vomiting, chest pain, or any unexpected problems, contact your Primary Care Provider. Call [facility] ([phone]) or report to the closest Emergency Room. Call 911 if necessary. 09/29/17 0927 <Electronically signed by Myra Carroll MD> Date Myra Carroll MD Cosigner Signature (If Indicated): Date CC: No Primary Care Physician TRANSVAGINAL W/PREG US Observed: 09/29/2017 Status: F Source: [place] 4:41 AM [facility] REPOSITORY [facility] Imaging Services [address] [place] [address] Transvaginal w/Preg US MR#: [id number] Acct: [id number] Name: ALY GUY Rep #: [id number] : 1990 F 27 From: Tone Serrano MD PCP: Care Physician, No Primary Status: REG ER Study: Transvaginal w/Preg US Date of Exam: 09/29/17 Exam# [id number] Ordering Dr: Scott Ham MD STUDY: FIRST [...] Tone Serrano MD at 8:37 EDT Tel [phone], Service support , CC: No Primary Care Physician; Scott Ham MD Language Translator: Signed CLINICAL EVENT Observed: 09/22/2017 Status: UNK Source: [facility] NOTE-NEUROLOGY SIGN OFF 11:13 AM HOSPITALS REPOSITORY Event: Topic: Neurology Sign Off Details: MRV reviewed and is not consistent with venous thrombosis. No need for anticoagulation at this time. Neurology will sign off at this time. Page with any questions [phone]. Discussed with attending. Josse Sanchez DO, MHSA PGY-3 Provider / Team Contact Information: Provider/Team Contact Info-Pager Number: [phone] Electronic Signatures: Josse Sanchez ( (Resident)) (Signed [...] female urine samples has been validated by [facility]. Testing on this sample type is not FDA-approved, but such approval is not necessary. This laboratory is certified by CLIA to perform high complexity testing. LAB CTAMP(LOINC) NEGATIVE CHLAMYDIA TRACH.,AMPLIFIED NEGATIVE Result Comment: Performance characteristics for Chlamydia trachomatis testing on female urine samples has been validated by [facility]. Testing on this sample type is not FDA-approved, but such approval is not necessary. This laboratory is certified by CLIA to perform high complexity testing. LAB SOURCE([facility]) Lab Specimen Source Urine Performed By: #### GCCHA #### [facility] [address] [place] [address] DAILY PROGRESS NOTE - Observed: 09/22/2017 Status: COMPLETED Source: [facility] OB-ANTEPARTUM - MFM 8:18 AM HOSPITALS REPOSITORY [...] ----- Mn/Dy/Year TimeIntakeOutputNet Sep 22, 2017 6:00 [id number] Sep 21, 2017 10:00 [id number] Sep 21, 2017 2:00 [id number] The Intake and Output Totals for the last 24 hours are: IntakeOutputNet [id number] T [id number] Value37.1072415/6298% Date/Time09/22 3: 3: 3: 3: 3:45 Range(36.8C [...] than eight hours after previous dose. Contact [phone] for additional info Hep.B Surface Ag NONREACTIVE Reference Range: NONREACTIVE Patients receiving more than 5 mg/day of biotin may have interference in test results. A sample should be taken no sooner than eight hours after previous dose. Contact [phone] for additional infor HIV Antigen/Antibody Screen 21-Sep-2017 [...] Beta 2 Glycoprotein Ab 21-Sep-2017 03:21:00 ResultValue Dcxt-4-Vrrthnnbixny IgG Antibody <1.4 Hvpb-4-Eldoswubxxvh IgA Antibody 0.7 Blfd-0-Zrdqbrasqump IgM Antibody <0.2 Dilute Kervin Viper Venom [...] Quantitative 21-Sep-2017 03:21:00 ResultValue HCG, Beta Quantitative 21758 A Assessment and Plan: Assessment: 27 yo at 12.1 (09/22) wga by reported 8.5 wk US presenting for transfer of care from [place] with new dx of L transverse sinus [...] anticipate discharge today Margie Ledezma, PGY3 M 375[address] Signature/Cosignature/Attestation: Comments/ Additional Findings I saw and [...] documented in her/his note. Espinoza Butcher MD [facility] Attending Electronic Signatures: Margie Ledezma (Resident)) [...] thrombosis. Stroke protocol. COMPARISON: None ACCESSION NUMBER(S): [id number]; [id number] ORDERING CLINICIAN: ELLYN TAPIA TECHNIQUE: MRI of [...] as stated. This study was interpreted at [place], [place]. Electronically signed by: CATY KARIMI MD NR MRI BRAIN WO Observed: 09/21/2017 Status: F Source: [place] 5:59 PM HOSPITALS REPOSITORY Patient Name: ALY GUY STUDY: NR MRI BRAIN WO; NR MR VENOGRAPHY INTRACRANIAL W/O CONTRAST; 09/21/2017 5:59 pm; 09/21/2017 6:00 pm INDICATION: Signs/Symptoms: R/o venous sinus thrombosis. Stroke protocol. COMPARISON: None ACCESSION NUMBER(S): [id number]; [id number] ORDERING CLINICIAN: ELLYN TAPIA TECHNIQUE: MRI of [...] as stated. This study was interpreted at [place], [place]. Electronically signed by: CATY KARIMI MD WITH HBSAG Collected: 09/21/2017 Status: F Source: [place] 2:44 PM HOSPITALS REPOSITORY TYPE CODE TESTS [...] than eight hours after previous dose. Contact [phone] for additional information. LAB RUBIG([facility]) IU/ML RUBELLA IGG AB 143.0 Result Comment: REF VALUES NON-IMMUNE: < 5 EQUIVOCAL: 5-9 IMMUNE: >=10 LAB HAGFN([facility]) NONREACTIVE NONREACTIVE HEP.B SURFACE AG Result Comment: Patients receiving more than 5 mg/day of biotin may have interference in test results. A sample should be taken no sooner than eight hours after previous dose. Contact [phone] for additional information. LAB SOURCE([facility]) Lab Specimen Source Performed By: #### PRNH3 #### [facility] [address] [place] [address] PATH REVIEW-HGB Collected: 09/21/2017 Status: F Source: [facility] IDENTIFICATION 2:44 PM HOSPITALS REPOSITORY TYPE CODE TESTS RESULT OUT OF RANGE REFERENCE UNITS LAB PRV27([facility] ) PATH K.GEOVANI REV-HGB IDENT. Result Comment: By her/his signature above, the Pathologist listed as making the final interpretation certifies that she/he has personally reviewed this case. Performed By: #### PR27 #### [facility] [address] [place] [address] HEMOGLOBIN IDENTIFICATION Collected: 09/21/2017 Status: F Source: [place] 2:44 PM HOSPITALS REPOSITORY TYPE CODE TESTS RESULT OUT OF REFERENCE UNITS RANGE LAB HBA(LOINC) % HEMOGLOBIN A 96.7 LAB HBF(LOINC) % HEMOGLOBIN F 0.4 LAB HBA2(LOINC % ) HEMOGLOBIN A2 2.9 Result Comment: HGB A2 values may be falsely elevated in the presence of HGB S. LAB HBINT(LOINC) INTERPRETATION SEE COMMENT Result Comment: Normal Performed By: #### ALDO #### [facility] [address] [place] [address] TYPE + SCREEN Collected: 09/21/2017 Status: CANCELLED Source: [place] 2:44 PM HOSPITALS REPOSITORY Order Comment: TEST TYPE + SCREEN WAS CANCELLED, 09/26/2017 15:46 DUPLICATE ORDER. TYPE CODE TESTS RESULT OUT OF REFERENCE UNITS RANGE LAB ABORH(LOIN C) ABO TYPE Canceled LAB RH(LOINC) RH TYPE Canceled LAB ABSC(LOINC ) ANTIBODY Canceled SCREEN Performed By: #### T+S #### [facility] [address] [place] [address] CLINICAL EVENT Observed: 09/21/2017 Status: UNK Source: [...] PROTEIN, URINE Collected: 09/21/2017 Status: CANCELLED Source: [facility] 11:55 AM HOSPITALS REPOSITORY Order Comment: TEST TOTAL PROTEIN, URINE SPOT WAS CANCELLED, 09/21/2017 11:55 ?Cancel Reason: Patient Discharged. TYPE CODE TESTS RESULT OUT OF REFERENCE UNITS RANGE LAB TPSP(LOINC) TOTAL Canceled PROT,URINE SPOT LAB CRTSP(LOINC ) Canceled CREATININE,U RINE LAB TPCRT(LOINC ) T. 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 Presented initially with L frontal KINNEY, dizziness, weakness/heaviness, and blurry vision. Transferred to and admitted to [facility] service. This am, pt feeling poorly. Complaining [...] warmth, edema, or tenderness in LE Neurological: travel writer grossly intact, moving all 4 extremities Psychological: [...] Beta 2 Glycoprotein Ab 21-Sep-2017 03:21:00 ResultValue Wbra-6-Tsianjlijtmw IgG Antibody <1.4 Rale-4-Hbskpqbvsgrs IgA Antibody 0.7 Requ-6-Epaxqjcuxxbe IgM Antibody <0.2 Dilute Kervin Viper Venom [...] Quantitative 21-Sep-2017 03:21:00 ResultValue HCG, Beta Quantitative 66335 A Assessment: 27 yo at 12 wga by reported 8.5 wk US presenting for transfer of care from [place] with new dx of L transverse sinus [...] Request US records Stephen Ghosh MS4 Signature/Cosignature/Attestation: Seed Cutter Only - Attest to Medical Student/Acting Combination Technician documentationAs a teaching institution, we recognize that [...] Illness, Allergies, Objective, Assessment/Recommendations, Signature/Cosignature/Attestation Davina Stephen ([employer]) (Signed 21-Sep-2017 11:54) Authored: Service, History of Present Illness, Allergies, Objective, Assessment/Recommendations, Signature/Cosignature/Attestation Last Updated: 21-Sep-2017 13:39 by Lan Andujar) CONSULT - NEURO-STROKE Observed: 09/21/2017 Status: COMPLETED Source: [place] 4:16 AM HOSPITALS REPOSITORY Service: Service: Service: Stroke Consult: Consult requested by (Attending Name): Lm Reason: CVT History of Present Illness: HPI: This is a 27 yo woman currently 10 week , migraines presenting as transfer from [place] with diagnosis of L transverse dural venous [...] was able to walk. She presented to [facility] when the headache didn't resolve after a few hours like it usually does. CTV showed a nonocclusive L transverse sinus thrombus. She was transferred to OBGYN service at [facility]. She has migraines a few times [...] Known Allergies: Objective: Objective Information: T PRBPSpO2 [id number]/4194% Date/Time09/21 2:107 3: 2: 4:137 2:10 Range(37C [...] exam was normal. In both upper extremities, dvrrst-dyyd-qjytbk was intact without dysmetria or overshoot. In both lower extremities, fuld-de-sxlk was intact. KAYLEE were intact in both [...] Quantitative 21-Sep-2017 03:21:00 ResultValue HCG, Beta Quantitative 61286 A Radiology Results: Results: CT venous (contrast) reviewed from disk in paper chart. Non- occlusive <1cm flow void in L transverse sinus. Assessment/Recommendations: Aly Guy is a 27 yo 10 week woman presenting for headache, transferred to [facility] for L transverse sinus thrombus. Patient's [...] she has a mild headache still. At [place] ED, CTV was interpreted as showing a nonocclusive L transverse sinus thrombus. She was transferred to OBGYN service at [facility] and started on full anticoagulation with [...] Did this patient receive any care at [place] [facility]?: no Was this patient transferred from another facility for this admission?: yes Transfer Location (If patient is coming from an office, choose the hospital where patient intended to deliver.): Other Dating: ? Choose Antepartum or Postpartumantepartum ? Final [id number] ? Current EGA:12 HPI Descriptive Info: ? HPI 27 yo at 12.0 wga by reported 8.5 wk U/S presents as a transfer from [place] with a new diagnosis of left dural [...] last flare 6 mos. 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 Lam Marie, PGY-2 Signatures/Attestation/Certification: Attending [...] on 21-Sep-2017 Comments/ Additional Findings Transferred from [place] for dural venous sinus thrombosis and headache. [...] Last Updated: 28-Sep-2017 10:02 by Noris Arora ([facility]) ADMISSION RISK SCREEN Observed: 09/21/2017 Status: [...] ? Cultural Considerationsnone ? Developmental Considerationsnone ? Confucianist Considerationsnone Learning Assessment (Other Learner): ? Other [...] Screen: ? Are there any cultural, spiritual, roman catholic practices/values/needs that are important for us to [...] with underlying chronic conditions or reside in termite treater care facilitiesnone of these conditions ? Persons [...] Forte) CBC Collected: 09/21/2017 Status: F Source: [place] 3:21 [facility] REPOSITORY TYPE CODE TESTS RESULT OUT [...] RDW-CV 13.1 Performed By: #### CBC #### [facility] [address] [place] [address] COAGULATION SCREEN Collected: 09/21/2017 Status: F Source: [place] 3:21 [facility] REPOSITORY TYPE CODE TESTS RESULT OUT OF REFERENCE UNITS RANGE LAB PT(LOINC) 9.8 - 12.7 sec PROTHROMBIN TIME 11.3 LAB INR(LOINC) 0.9 - 1.1 PT, INR 1.0 LAB APTT(LOINC 25 - 36 sec ) APTT 26 Result Comment: THE APTT IS NO LONGER USED FOR MONITORING UNFRACTIONATED HEPARIN THERAPY. FOR MONITORING HEPARIN THERAPY, USE THE HEPARIN ASSAY. Performed By: #### COAGS #### [facility] [address] [facility] [place] [address] COMPREHENSIVE PANEL Collected: 09/21/2017 Status: F Source: [place] 3:21 [facility] REPOSITORY TYPE CODE TESTS RESULT OUT [...] for ALT. Performed By: #### CMP #### [facility] [address] [place] [address] HCG,BETA-QUANTITATIVE Collected: Status: F Source: [place] 09/21/2017 3:21 AM HOSPITALS REPOSITORY TYPE CODE TESTS RESULT OUT OF RANGE REFERENCE UNITS LAB HCGQU(LOINC IU/L ) Abnormal 07445 HCG,BETA-QU ANTITATIVE Result Comment: Low-level positive HCG [...] performed using a different test methodology at [facility] than other [facility]. Direct result comparison should only be made within the same method. REF VALUES NON FEMALE <5 MALES <5 Performed By: #### HCGQU #### [facility] [address] [place] [address] DILUTE KERVIN VIPER Collected: 09/21/2017 Status: F Source: [place] VENOM TIME[DRVVT] 3:21 AM HOSPITALS REPOSITORY TYPE CODE TESTS RESULT OUT OF REFERENCE UNITS RANGE LAB DRVSC(LOIN RATIO C) DRVVT SCREEN 0.93 LAB DRVCN(LOIN RATIO C) DRVVT CONFIRMATION 1.02 LAB DRVTR(LOIN <=1.20 RATIO C) DRVVT TEST RATIO 0.91 Performed By: #### DRVVT #### [facility] [address] [place] [address] BETA 2 GLYCOPROTEIN AB Collected: 09/21/2017 Status: F Source: [address] REPOSITORY TYPE CODE TESTS RESULT OUT [...] or cryoglobulins. Performed By: #### B2GLY #### [facility] [address] [place] [address] ANTICARDIOLIPIN AB Collected: 09/21/2017 Status: F Source: [address] REPOSITORY TYPE CODE TESTS RESULT OUT [...] or cryoglobulins. Performed By: #### ACA2 #### [facility] [address] [place] [address] FACTOR V LEIDEN Collected: 09/21/2017 Status: F Source: [place] 3:21 [facility] REPOSITORY TYPE CODE TESTS RESULT OUT OF REFERENCE UNITS RANGE LAB GINT9(LOINC ) FACTOR V SEE BELOW LEIDEN Result Comment: RESULTS WILL BE SENT ON SEPARATE REPORT. Performed By: #### LEID2 #### [facility] [address] [address] [place], [place] [id number] PROTHROMBIN MUTATION- Collected: 09/21/2017 Status: F Source: [place] [id number] 3:21 [facility] REPOSITORY TYPE CODE TESTS RESULT OUT OF REFERENCE UNITS RANGE LAB GIN19(LOIN C) PROTHROMBIN MUTATION- [id number] SEE BELOW Result Comment: RESULTS WILL BE SENT ON SEPARATE REPORT. Performed By: #### GPRO2 #### [facility] [address] [address] [place], [place] [id number] TYPE + SCREEN Collected: 09/21/2017 Status: CANCELLED Source: [place] 3:20 [facility] REPOSITORY Order Comment: TEST TYPE + SCREEN WAS CANCELLED, 09/22/2017 15:56 DUPLICATE ORDER see [id number]. TYPE CODE TESTS RESULT OUT OF REFERENCE [...] 09/21/2017 11:03 Performed By: #### T+S #### [facility] [address] [place] [address] PATIENT PROFILE - OB Observed: 09/21/2017 Status: UNK Source: [place] [id number] 2:26 AM HOSPITALS REPOSITORY Profile: Initial Info: How to be Addressedrose Spoken Language PreferredEnglish Source of Informationpatient Are you currently using the Personal Electronic Health Record or VISUALPLANTno Are you interested in learning more about VISUALPLANT for the management of your healthnot at this time Reason for admission this visitother diagnosis early Arrived Fromspital Patient Belongingsremains with patient Patient Belongings Remaining with Patientcell phone/electronics; clothing; vision aids Medications Brought to Hospitalno Info: Gravida2 Term Deliveries1 Deliveries0 Abortions0 Living Children1 Patient stated [id number]-1574 Calculation of EGA based on patient stated EDD12 Is care information applicable this patient/visit?not yet Current Risksnone Testsultrasound Previous Delivery (20 weeks or greater)yes First Delivery Complications (Oldest Child/Children)preeclampsia Is plan applicable this patient/visit?not yet Is infant information applicable this patient/visit?not yet Is feeding plan applicable this patient/visit?not yet General Health: Weight in nbr417 pound(s) Weight in kg57.1 kilogram(s) Weight Methodactual [...] Support/Comfortspouse Lives Withspouse Resource/Environmental Concernsnone [facility] Anticipated at Transitionnone Information Review: ? Allergies, Home Meds and Significant Events have been Reviewed and Verified with Patient/Familyno ALLERGY, INTOLERANCE, ADVERSE EVENT: Allergies: ? No Known Allergies: Active Electronic Signatures: Dania Forte (RN) (Signed 21-Sep-2017 03:44) Authored: Profile, Additional Information Last Updated: 21-Sep-2017 03:44 by Dania Forte (CORTNEY) DISCHARGE PROFILE2 Observed: 09/21/2017 Status: [facility] Source: [facility] 2:25 AM HOSPITALS REPOSITORY Discharge Orders: Anticipated Discharge Date: ? Anticipated Discharge [id number] Triage OB: Activity: Return to normal activity [...] ? Physician/Dept/ServiceOB Provider ? CommentsFollow up with pre press proofer as scheduled. Provider FINAL REVIEW of Orders: Final Review: ? Final Review of Medication Reconciliation and Orders Completedby Physician ? Reviewing ProviderYoliitlin MD Henry (Resident) at 22-Sep-2017 09:59:32 Appointments: Follow-Up Appointment 01: ? Physician/Dept/EmmaDR Luna [facility] ? Reason for ReferralPRENATAL VISIT ON [...] Authored: Other Clinician Instructions, Gold Form - Hard Candy Batch Mixer Summary Last Updated: 22-Sep-2017 10:57 by Oscar Carreno (CLIN COOR) DISCHARGE PLANNING Observed: 09/21/2017 Status: UNK Source: [place] NOTE 2:24 AM HOSPITALS REPOSITORY Discharge Needs Assessment: ? Discharge Planning Assessment [id number] Discharge Planning: Discharge Planning: Date and Time: 09/21/2017 0208 Nursing Note/Admission/Health Maintenance: D: Patient admitted to the REHAB LIAISON unit from [place] Patient admitted for or s/p neuro consult [...] to assess home going/discharge needs. Coordinate with Forging Engineer as needed. Signature: Nneka BARR Date and [...] Disposition/Discharge: Disposition/Discharge Information: Discharge/Transfer Information: ? Discharge/Transfer Date/Mtxt20-Iih-9663 21:07 ? Discharged Accompanied Bysignificant other/partner ? [...] EMERGENCY DEPARTMENT Observed: 09/21/2017 Status: F Source: [place] SUMMARY 1:04 AM [facility] REPOSITORY [facility] Medical Records Department [address] [place] [address] Emergency Department Summary 09/20/17 2317 MR#: [id number] Acct: [id number] Name: ALY GUY Rep #: [id number] : 1990 27 From: Henrietta Samayoa MD [...] and preeclampsia with her previous . Her REHAB LIAISON is with in [place]. Physical Examination: Vital signs are unremarkable. Patient's [...] with Dr. Paredes, on-call for the patient's REHAB LIAISON. He advises that patient needs to be in a facility with neurology as well as maternal- medicine, and he does not have that available at [place]. After speaking with patient she would prefer to stay with and go to their main campus. I spoke with Dr. Lara, REHAB LIAISON, and patient has been accepted in transfer. She will speak with their maternal medicine doctors regarding anticoagulant and call me back if I am to start something here. Treatment Plan: [] Disposition: Transfer Impression: 1. First trimester 2. Dural venous thrombosis This note was generated with Satomiation software. It may contain incorrect words, spelling, [...] your Primary Care Provider. Call [facility] ([phone]) or report to the closest Emergency Room. Call 911 if necessary. 09/21/17 0104 <Electronically signed by Henrietta Samayoa MD> Date Henrietta Samayoa MD Cosigner Signature (If Indicated): Date CC: No Primary Care Physician BRAIN/HEAD W/WO Observed: 09/20/2017 Status: F Source: [place] CONTRAST 9:38 PM [facility] REPOSITORY [facility] Imaging Services [address] [place] [address] Brain/Head W/WO Contrast MR#: [id number] Acct: [id number] Name: ALY GUY Cory Rep #: [id number] : 1990 F 27 From: Massimo Sutton MD PCP: Care Physician, No Primary Status: REG ER Study: Brain/Head W/WO Contrast Date of Exam: 09/20/17 Exam# [id number] Ordering Dr: Henrietta Samayoa MD STUDY: CT [...] No Primary Care Physician; Henrietta Samayoa MD Language Translator: Signed URINALYSIS, COMPLETE Collected: 09/20/2017 Status: F Source: [place] 9:00 PM [facility] REPOSITORY Order Comment: How was Urine Obtained? [...] URINE SEEN Performed By: #### L400.0001 #### [facility] [address] [place], [address] CBC W/DIFF, AUTOMATED Collected: 09/20/2017 Status: F Source: [place] 8:52 PM [facility] REPOSITORY TYPE CODE TESTS RESULT OUT OF [...] Lymph 3.03 Performed By: #### L100.0100 #### [facility] [address] [place], [address] BASIC METABOLIC Collected: 09/20/2017 Status: F Source: [place] PROFILE ([facility]) 8:52 PM [facility] REPOSITORY TYPE CODE TESTS RESULT OUT OF [...] Performed By: #### L500.2500, L500.3400, L501.2450 #### [facility] [address] [place], [address] LIVER PROFILE Collected: 09/20/2017 Status: F Source: [place] 8:52 PM [facility] REPOSITORY TYPE CODE TESTS RESULT OUT OF [...] Performed By: #### L500.2500, L500.3400, L501.2450 #### [facility] [address] [place], [address] LIPASE Collected: 09/20/2017 Status: F Source: [place] 8:52 PM [facility] REPOSITORY TYPE CODE TESTS RESULT OUT OF RANGE REFERENCE UNITS LAB L501.2450 73-393 U/L Normal LIPASE 113 Performed By: #### L500.2500, L500.3400, L501.2450 #### [facility] [address] [place], [address] PROGRESS Observed: 09/07/2017 Status: COMPLETED Source: [place] 8:02 PM [facility] REPOSITORY HNO ID: [id number] Author: Jeni Garsia (Pa) Service: (none) Author Type: Physician Fur Machine Operator Type: Progress Notes Filed: 09/07/2017 8:12 PM [...] DEANDRE Meade Observed: 09/07/2017 Status: COMPLETED Source: [place] 7:15 PM [facility] REPOSITORY Office Visit (WSTR) ALY GUY ([id number]) 1990 F Date Time Provider Department 09/07/17 7:15 PM JENI GARSIA) [facility] During your visit today, we recorded the [...] CULTURE AND GRAM STAIN [SQWCUL] Order #: [id number] Prescriptions as of 09/07/2017 Sig: MUPIROCIN 2 [...] 09/07/17 WOUND Observed: 09/07/2017 Status: F Source: [place] CULTURE/STAIN 5:05 PM [facility] REPOSITORY Sp. Request/Comment: - Swab [...] <=0.5 F Performed By: #### WCUL #### [facility] [address] [place], [place] [address] 12 LEAD ELECTROCARDIOGRAM Observed: 08/31/2017 Status: F Source: [place] 2:33 PM [facility] REPOSITORY [facility] Cardiovascular Services [address] [place] [address] 12 Lead EKG 08/30/17 0229 MR#: [id number] Acct: [id number] Name: ALY GUY Rep #: [id number] : 1990 27 From: Fernando Jones MD [...] ECG Confirmed by FERNANDO JONES MD ([id number]), commercial production editor BAM LARA ([id number]) on 08/31/2017 2:33:40 PM Referred By: TOMMY Confirmed By:FERNANDO JONES MD 08/31/17 1433 Date Fernando Jones MD CC: No Primary Care Physician; Henrietta Samayoa MD Signed EMERGENCY DEPARTMENT Observed: 08/30/2017 Status: F Source: [place] SUMMARY 5:40 AM [facility] REPOSITORY [facility] Medical Records Department [address] [place] [address] Emergency Department Summary 08/30/17 0252 MR#: [id number] Acct: [id number] Name: ALY GUY Rep #: [id number] : 1990 27 From: Henrietta Samayoa MD [...] center. She has not yet seen an REHAB LIAISON. She had one prior that was complicated [...] 2. Anxiety This note was generated with Satomiation software. It may contain incorrect words, spelling, and punctuation that were not noted in review of the chart prior to signing ED Disposition - Plan for ED Patient: Chief Complaint: Chest Pain Referrals: NurseDANYEL [PHYSICIAN HUC] - What to do if you have Problems For any increased pain, shortness of breath, bleeding, nausea or vomiting, chest pain, or any unexpected problems, contact your Primary Care Provider. Call [employer] [facility] ([phone]) or report to the closest Emergency Room. Call 911 if necessary. 08/30/17 0540 <Electronically signed by Henrietta Samayoa MD> Date Henrietta Samayoa MD Cosigner Signature (If Indicated): Date CC: No Primary Care Physician DISCHARGE INSTRUCTION Observed: 08/30/2017 Status: F Source: [place] 3:43 AM [facility] REPOSITORY [facility] Medical Records Department [address] [place] [address] Discharge Instruction 08/30/17 0342 MR#: [id number] Acct: [id number] Name: ALY GUY Rep #: [id number] : 1990 27 From: Henrietta Samayoa MD [...] your Primary Care Provider. Call [facility] ([phone]) or report to the closest Emergency Room. Call 911 if necessary. 08/30/17 0343 <Electronically signed by Henrietta Samayoa MD> Date Henrietta Samayoa MD Cosigner Signature (If Indicated): Date CC: No Primary Care Physician CBC W/DIFF, AUTOMATED Collected: 08/30/2017 Status: F Source: [place] 2:40 AM [facility] REPOSITORY TYPE CODE TESTS RESULT OUT OF [...] Lymph 3.21 Performed By: #### L100.0100 #### [facility] [address] [place], [place], [address] URINALYSIS, COMPLETE Collected: 08/30/2017 Status: F Source: [place] 2:40 AM [facility] REPOSITORY Order Comment: How was Urine Obtained? [...] URINE SEEN Performed By: #### L400.0001 #### [facility] [address] [place], [place], [id number] BASIC METABOLIC Collected: 08/30/2017 Status: F Source: NELLA PROFILE (BMP) 2:40 AM [facility] REPOSITORY TYPE CODE TESTS RESULT OUT OF [...] Performed By: #### L500.2500, L500.3400, L501.2450 #### [facility] [address] [place], [place], [address] LIVER PROFILE Collected: 08/30/2017 Status: F Source: NELLA 2:40 AM [facility] REPOSITORY TYPE CODE TESTS RESULT OUT OF [...] Performed By: #### L500.2500, L500.3400, L501.2450 #### [facility] [address] [place], [place], [address] LIPASE Collected: 08/30/2017 Status: F Source: SHERIDAN 2:40 AM [facility] REPOSITORY TYPE CODE TESTS RESULT OUT OF RANGE REFERENCE UNITS LAB L501.2450 73-393 U/L Normal LIPASE 121 Performed By: #### L500.2500, L500.3400, L501.2450 #### [facility] [address] [place], [address] IGP W/HPV RFX Collected: 07/13/2017 Status: F Source: [place] [address] 4:08 PM [facility] REPOSITORY Order Comment: LMP: 06/16/17 TYPE CODE TESTS RESULT OUT OF RANGE REFERENCE UNITS LAB [id number](LO INC) Normal See Ref Lab Diagnosis: Report Performed By: #### [id number] #### [place] [address] PATHOLOGY ([facility]) Observed: 07/13/2017 Status: F Source: [facility] 12:00 AM REPOSITORY FINAL GYNECOLOGIC CYTOLOGY REPORT [id number] SPECIMEN ADEQUACY Satisfactory for Evaluation. Endocervical cells/transformation zone component present. GENERAL CATEGORIZATION Epithelial Cell Abnormality DESCRIPTIVE DIAGNOSIS Atypical squamous cells of undetermined significance. COMMENT High Risk HPV was ordered and performed at [facility] Laboratory. Results are reported below in this [...] SCREENING CERVICAL/ENDOCERVICAL THIN PREP VIAL Performed at [facility], [address] [place] [address] Screened by: SOFIYA CARSON Automatic Riveting Machine Operator Signed Out by: KVEAN RAYA MD Reported: 07/20/2017 Performed By: #### PIANO AND ORGAN REFINISHER #### [facility] [address] [place] [address] 12 LEAD ELECTROCARDIOGRAM Observed: 04/25/2017 Status: F Source: SHERIDAN 1:17 PM [facility] REPOSITORY [facility] Cardiovascular Services [address] [place] [address] 12 Lead EKG 04/22/17 1648 MR#: [id number] Acct: [id number] Name: ALY GUY Rep #: [id number] : 1990 26 From: Judson Grant MD [...] Normal ECG Confirmed by JUDSON GRANT ([id number]), commercial production editor BAM LARA ([id number]) on 04/25/2017 1:17:32 PM Referred By: TAMMY Confirmed By:JUDSON GRANT 04/25/17 1317 Date Judson Grant MD CC: No Primary Care Physician; Henrietta Samayoa MD Signed ,SERUM,HCG QUALI. Collected: Status: F Source: SHERIDAN 04/24/2017 4:10 PM [facility] REPOSITORY TYPE CODE TESTS RESULT OUT OF REFERENCE UNITS RANGE LAB L700.7000 0-9 Nonpreg Negative Normal HCGSQUAL NEGATIVE LAB L700.6700 =>Qualitative mIU/mL Normal HCG Qual < 1 triggr Performed By: #### L700.6800 #### [facility] [address] [place], [address] HIV - [facility] Collected: 04/24/2017 Status: F Source: SHERIDAN 4:10 PM [facility] REPOSITORY TYPE CODE TESTS RESULT OUT OF RANGE REFERENCE UNITS LAB L3890.6005 Nonreactive Normal HIV - [facility] Non-Reactive Performed By: #### L3890.6005 #### [facility] [address] [place], [address] EMERGENCY DEPARTMENT Observed: 04/22/2017 Status: F Source: SHERIDAN SUMMARY 10:57 PM [facility] REPOSITORY [facility] Medical Records Department [address] [place] [address] Emergency Department Summary 04/22/17 1659 MR#: [id number] Acct: [id number] Name: ALEXOliALY Rep #: [id number] : 1990 26 From: Henrietta Samayoa MD [...] 0.5 mg p.o. She was observed on system administrator with no arrhythmias noted. On repeat evaluation she is resting comfortably and symptoms are improved. She be given a prescription for 4 tabs of Ativan only. She is referred to the counseling center for follow-up. Treatment Plan: [] Disposition: Discharge Impression: Panic attack This note was generated with Skopeo.fr dictation software. It may contain incorrect words, [...] your Primary Care Provider. Call [facility] ([phone]) or report to the closest Emergency Room. Call 911 if necessary. 04/22/17 9019 <Electronically signed by Henrietta Samayoa MD> Date Henrietta Samayoa MD Cosigner Signature (If Indicated): Date CC: No Primary Care Physician DISCHARGE INSTRUCTION Observed: 04/22/2017 Status: F Source: NELLA 6:41 PM [facility] REPOSITORY [facility] Medical Records Department [address] [place] [address] Discharge Instruction 04/22/17 1538 MR#: [id number] Acct: [id number] Name: ALY GUY Rep #: [id number] : 1990 From: Henrietta Samayoa MD PCP: [...] your Primary Care Provider. Call [facility] ([phone]) or report to the closest Emergency Room. Call 911 if necessary. 04/22/17 1841 <Electronically signed by Henrietta Samayoa MD> Date Henrietta Samayoa MD Cosigner Signature (If Indicated): Date CC: No Primary Care Physician ALLERGIES ALLERGIES DATE TYPE / CODE NAME / CODE REACTION SEVERITY SOURCE 03/20/2018 Drug No Known Unknown [place] Allergy/416 Allergies/S059554 [facility] 666064(SNOM 388(RXNORM) [facility] ED CT) Repository Drug/840969 No Known Zoroastrian 003[facility] [place]) Allergies System Repository ENCOUNTERS ENCOUNTERS ADMIT/DISCHARGE ACCOUNT NUMBER ADMITTING ENCOUNTER LOCATION SOURCE CLASS 03/23/2018/03/23/[id number] [facility] Rep[facility] om: [id number] 03/20/2018/03/20/[id number] ding:WPOUTRo Repository om: WP013 03/20/2018 [id number] Ambulatory [facility] ding:ED Repository 03/18/2018/03/18/19 [id number] Emergency Nella[address] ding:ED Repository 03/16/2018/03/16/19 [id number] José Antonio Friedman [address] ding:SH.Lab Health System Repository 03/16/2018/03/16/[id number] System :[facility] Repository om: [id number] 03/16/[id number] Repository 03/14/2018 [id number] Ambulatory [facility] ding:LAB.FUT Repository URE 03/13/2018 [id number] Ambulatory [facility] ding:LAB Repository 02/15/2018/02/16/[id number] Health System :[facility] Repository om: [id number] 01/27/2018 [id number] Ambulatory [facility] ding:LAB Repository 01/26/2018/01/27/[id number] System :[facility] Repository om: [id number] 01/15/2018/01/16/20 [id number] Ambulatory [address] ding:WPOUTRo Repository om: WP013 01/12/2018/01/13/[id number] System :[facility] Repository om: Room 4 01/03/2018 [id number] Ambulatory [facility] ding:LAB.FUT Repository URE 12/13/2017/12/14/19 [id number] José Antonio Friedman [address] System :[facility] Repository om: [id number] 11/28/2017/11/29/19 [id number] Ambulatory [address] Health System :[facility] Repository 11/21/2017/11/22/19 [id number] LeggettJosé Antonio [address] ding:[facility] System Repository 11/21/2017 [id number] Ambulatory [address] [place] [address] Repository 10/31/2017/11/01/19 [id number] Nicolasa Friedman[address] ding:[facility] Repository 10/31/2017/11/01/[id number] System :[facility] Repository om: [id number] 10/31/2017 [id number] Ambulatory [address] [place] [address] Repository 10/09/2017 [id number] Ambulatory [facility] Repository 10/09/2017/10/10/19 [id number] Drew [address] ding:[facility] System Repository 10/09/2017 [id number] Ambulatory [address] [place] [address] Repository 10/06/2017/10/07/[id number] Health System :[facility] Repository 10/05/2017/10/06/[id number] Health System :[facility] Repository 10/03/2017/10/04/[id number] System :[facility] Repository om: [id number] 09/29/2017/09/30/19 [id number] Emergency [place] [address] [place] [address] ding:ED Repository 09/25/2017/09/26/[id number] Health System :[facility] Repository 09/21/2017 [id number] Ambulatory [facility] Repository 09/21/2017/09/23/19 [id number] SAM, Inpatient UHCBuilding: [place] [address] R Encounter EH9VGlqe: Hospitals P6805Zfh: Repository [id number] 09/20/2017/09/22/19 [id number] Emergency Nella [place] [facility] ding:ED Repository 09/07/2017/09/09/19 [id number] Ambulatory [address] Repository 09/04/2017/09/05/19 [id number] José Antonio Friedman [address] System :[facility] Repository om: [id number] 08/30/2017/08/31/19 [id number] Emergency [place] ding:ED Repository 07/13/2017/07/14/19 [id number] Junior Adriana [address] ding:[facility] Repository 07/13/2017/07/14/[id number] System :[facility] Repository om: Room 3 07/04/2017/07/05/19 [id number] Junior Adriana [address] :[facility] Repository om: Room 1 06/22/2017/06/23/19 [id number] [place], Ambulatory [place] [address] [address] eBuilding:[facility] oom: Room 2 Repository 04/25/2017/04/25/19 [id number] Ambulatory BMSBuilding: [place] [facility] Repository 04/24/2017/04/24/19 [id number] Ambulatory Nella [place] [facility] ding:EDREF Repository 04/22/2017/04/22/19 [id number] Emergency [place] [facility] ding:ED Repository PAYERS PAYERS ENCOUNTER GUARANTOR PAYER SUBSCRIBER SOURCE 03/20/2018 ALY JOHNSONS329 Primary ALY [facility] CLAUDINEOB: [address] Number: [id number] Hospital [address]Pvi: [phone]) [id number] Repository [phone] () Date:2018-03-20[address]ATTN: [place] [address]EF: 03/20/2018 Secondary NOT GIVENUNK [place] Insurance:SELF PAY [facility] Number: Effective Repository Date:2018-03-20 03/20/2018 ALY Cory [id number] Primary ALY Ray [address] [address] Insurance:CARESOURCEP [facility] [address] Number: [id number] [facility] [address]Teq: [phone]) [id number] Repository [phone] () Date:2018-03-20 [address]ATTN: [place] [address]GI: 03/20/2018 Secondary NOT GIVENUNK [place] Insurance:SELF PAY [facility] Number: Effective Repository Date:2018-03-20 03/18/2018 ALY SMITH29 Primary ALY Ray [address] Insurance:CARESOURCEP [facility] [address] Number: [id number] Hospital [address]Tpz: [phone]) [id number] Repository [phone] () Date:2018-03-18 [address]ATTN: [place] [address]TI: 03/18/2018 Secondary NOT GIVENUNK [place] Insurance:SELF PAY [facility] Number: Effective Repository Date:2018-03-18 03/16/2018 ALY CHOWOB: Primary ALY ALEXSDOB: [place] Insurance:Caresourc [id number] [place] [address] Number: E [place]TH Repository [place] [id number] [place] [id number]: Date:Plan [id number]: Name:[facility] O Box () [address] [place] [address] () [id number]: 03/14/2018 ALY SMITH29 Primary ALY Castrooster [address] Insurance:CARESOURCEP GROVESDOB: [address] olicy Number: [id number] Hospital [address]Vun: [phone]) [id number] Repository [phone] () Date:2018-03-14[address]ATTN: [place] [address]KS: 03/14/2018 Secondary NOT GIVENUNK [place] Insurance:SELF PAY [facility] Number: Effective Repository Date:2018-03-14 03/13/2018 ALY SMITH29 Primary ALY Castrooster [address] [place] Insurance:CARESOURCEP GROVESDOB: [address] Number: [id number] Hospital [address]Hpf: 330 [id number] Repository [phone] () Date:2018-03-13[address]ATTN: [place] [address]NQ: 03/13/2018 Secondary NOT GIVENUNK N[place] Insurance:SELF PAY [facility] Number: Effective Repository Date:2018-03-13 01/27/2018 ALY SMITH29 Primary ALY Castrooster [address] [place] Insurance:CARESOURCEP GROVESDOB: [address] olicy Number: [id number] Hospital [address]Jna: 330 [id number] Repository [phone] () Date:2018-01-27[address]ATTN: [place] [address]XW: 01/27/2018 Secondary NOT GIVENUNK N[place] Insurance:SELF PAY [facility] Number: Effective Repository Date:2018-01-27 01/15/2018 ALY JOHNSONS311 Primary ALY [address] Insurance:CARESOURCEP GROVESDOB: [address] Number: [id number] [facility] [address]Miy: [phone]) [id number] Repository [phone] () Date:2018-01-15 [address]ATTN: [place] [address]JN: 01/15/2018 Secondary NOT GIVENUNK [place] Insurance:SELF PAY [facility] Number: Effective Repository Date:2018-01-15 01/03/2018 ALY SMITH11 Primary ALY Ray [place] E [facility] Insurance:CARESOURCEP GROVESDOB: [facility] Number: [id number] Hospital [address]Wiy: (001) [id number] Repository [phone] () Date:2018-01-01 [address]ATTN: [place] [address]BC: 01/03/2018 Secondary NOT GIVENUNK [place] Insurance:SELF PAY [facility] Number: Effective Repository Date:2018-01-01 11/28/2017 ALY Ray Primary ALY Ruby GROVESDOB: Insurance:1500 GROVESDOB: [facility] [id number] [facility] Repository STREET[address] Number: Effective [address]RE[address] [place] Date:2017-10-31 [address], [place] [address]Qak: (722) [phone] 698[address]Sdg: () Name:CD:[id number] [phone] ()Tel: [phone]: (wp) [phone] 11/21/2017 ALY Ray Primary ALY JOHNSONSDOB: Insurance:1500 GROVESDOB: [facility] [id number] [facility] Repository STREET[address] Number: Effective [address], [place] Date:2017-10-31 [place], [place] [address]Fnu: (304) [id number] [address]Ouf: () Name:CD:[id number] O [phone] [place] [address] ()Tel: [phone]: (ZJ) [phone] 11/21/2017 ALY JOHNSONSDOB: Primary ALY GROVESDOB: [place] Insurance:[facility] [id number] [facility] olicy Number: E [facility] Repository [place], [place] [id number] [address] [place] [id number]: Date:Plan [id number]: Name:Health O Box () [address] [place] [address] () [id number]: 10/31/2017 ALY Ray Primary ALY Ruby DONNERSDOB: Insurance:[facility]AREURCJACKSON MEDICAL CENTEROB: [facility] E MCAIDPolicy Number: [id number] [facility] Effective [facility] Repository [address], [place] Date:2017-10-31 [place] [address]Mhd: [id number] [address]Tel: Name:CD:[id number] () [address] [place] [address] ()Tel: [phone]: (WP) [phone] 10/31/2017 ALY Ray Primary ALY CHOWOB: Insurance:[facility] GROVESDOB: [facility] [id number] [facility] Health[facility] PLPolicy [facility] [address]ET[address] Number: Effective [address] [address], [place] Date:2017-10-03 [place], [place] [address]Xry: [phone]) [id number]: (HP) Name:CD:[id number] O [phone] [place] [address] ()Tel: [phone]: ([phone]) [phone] 10/31/2017 ALY GROVESDOB: Primary ALY GROVESDOB: [place] Insurance:[facility] [id number] [place] [address] Number: E [facility] Repository 502[facility] [place], [place] [id number] [place] [id number]: Date:Plan [id number]: Name:Health O Box (HP) [address] [place] [address] () [id number]: 10/09/2017 ALY GROVESDOB: Primary ALY GROVESDOB: [place] Insurance:[facility] [id number] [place] [address] Number: [facility] Repository 502[facility], [place] [id number] [place], [place] [phone]: Date:Plan [id number]: Name:[facility] O Box () [address] [place] [address] () [id number]: 10/09/2017 ALY M Primary ALY Cory PerdomoZoroastrian GROVESDOB: Insurance:CARESOURCE GROVESDOB: [facility] MCAIDPolicy Number: [id number] [facility] STRE[address] Date:2017-10-06 - STREET[address], [place] [id number] 502[place], [place] [address]Byl: (199) Name:CD:[id number]: (HP) [address] [place] [address] [phone]: [phone]) () [phone] (WP) 10/09/2017 ALY JOHNSONSDOB: Primary ALY [facility]: [place] Insurance:[facility] [id number] [facility] Number: [facility] Repository [facility], [id number] [place], [place] [address]Cly: Date:[facility] [address]Him: Name:HealthP O Box (HP) [address] [place] [address] () [id number]: 10/06/2017 ALY Ray Primary ALY Ruby [facility]: Insurance:CAREMERIT HEALTH RIVER OAKSOB: [facility] Number: [id number] System [place] Effective [place] Repository [facility] Date:2017-08-29 - [facility] [place] [address]Ojv: [id number] [place] [address]Uty: Name:CD:[id number] (HP) [address] [place] [address] ()Tel: [phone]: (WP) [phone] 10/05/2017 ALY Ray Primary ALY JOHNSONGAOB: Insurance:1500 GROVESDOB: [facility] [id number] System [facility] [place] Repository [facility] Number: Effective [facility] [place], [place] [address]Ryk: Date:2017-07-13 , [place] [address]Qot: [id number] (HP) Name:CD:[id number] O ()Tel: (596) [address], [place] [phone] (WP) [phone]: 10/03/2017 ALY Ray Primary ALY JOHNSONSDOB: Insurance:1500 GROVESDOB: [facility] [id number] System [facility] PLPolicy [facility] Repository [address] Number: Effective [address]RE[address], [place] Date:2017-10-03 [place], [place] [address]Fyk: ([phone]) [id number] [address]Qkv: () Name:CD:[id number] O [phone] [place] [address] ()Tel: [phone]: (wp) [phone] 09/29/2017 ALY JOHNSONS311 Primary ALY Ray [place] [facility] Insurance:CARESOURCEP GROVESDOB: [address] olicy Number: [id number] Hospital [address]Usl: (248) [id number] Repository [phone] () Date:2017-09-29 [address]ATTN: [place] [address]PY: 09/29/2017 Secondary NOT GIVENUNK [place] Insurance:SELF PAY [facility] Number: Effective Repository Date:2017-09-29 09/25/2017 ALY Ray Primary ALY [facility]: Insurance:1500 Self GROVESDOB: [facility] PayPolicy Number: [id number] System [facility] Effective [facility] Repository [address] Date:2017-09-04 - STREET [address], [place] [id number] [address] [place] [address]Src: ([phone]) Name:CD:[id number]: (HP) [phone] (HP) (WP) 09/21/2017 ALY Ray Primary ALY Cory [facility]: Insurance:CaresourceP GROVESDOB: [facility] olicy Number: [id number] Repository [facility] [id number] [facility] [address] Date:Plan [address], [place] Name:HealthP [address], [place] [address]Wfv: [phone], [place] [address]Svd: () [phone]: () [phone] 09/21/2017 ALY Ray Primary ALY Ray [facility]: Insurance:CaresourcEssentia HealthOB: [facility] olicy Number: [id number] Repository [facility] [id number] [facility] APT Date:[facility] [address] [place] [address] Name:HealthP [address] [place] [address]Hjv: [phone]) 5294Day[place], [place] [address]Kge: (HP) [phone]: () [phone] 09/20/2017 ALY JOHNSONS311 Primary ALY Ray [place] E [facility] Insurance:CARESOMEMORIAL HOSPITAL AT GULFPORTOB: [address] Number: [id number] [facility] [address]Ccf: (003) [id number] Repository [phone] () Date:2017-09-20[address]ATTN: [place] [address]OO: 09/20/2017 Secondary NOT GIVENUNK [place] Insurance:SELF PAY [facility] Number: Effective Repository Date:2017-09-20 09/04/2017 ALY Ray Primary ALY Ray [facility]: Insurance:[facility] Self [facility]: [facility] PayPolicy Number: [id number] System [facility] Effective [facility] Repository [address] Date:2017-09-04 - [address]VIS[address], [place] [id number] [address] [place] [address]Egl: (157) Name:CD:[id number]: (HP) [phone] () () 08/30/2017 ALY JOHNSONS311 Primary NOT GIVENUNK [place] [address] Insurance:SELF PAY [facility] [address]Exe: (419) Number: Effective Repository [phone] (HP) Date:2017-08-30 07/13/2017 ALY Ray [facility]: Insurance:[facility]: [facility] Number: [id number] System [place] Effective [place] Repository [address] Date:2017-07-13 - [address], [place] [address]Kqq: [id number] [place], [place] [address]Tdr: Name:CD:[id number] (HP) [address] [place] [address] (HP)Tel: [phone]) [phone]: (WP) [phone] 07/13/2017 ALY Ray [facility] System[facility]: Insurance:[address] [place] [address]OB: [facility] [id number] System [facility] [facility] [facility] PLPolicy [place] Repository [address] Number: Effective STREETPERRYSV[address] [place], [place] [address]Wlr: Date:2017-07-04, [place] [address]Dcm: [id number] (HP) Name:CD:[id number] O (HP)Tel: (088) [address], [place] [phone] (WP) [phone]: 07/04/2017 ALY Ray [facility] ALY Ray [facility] System[facility]: Insurance:[address] [place] [address]OB: [facility] [id number] System [place] [address]Policy [place] Repository [address]RE[address] Number: Effective STREET[place]ERRYS[place]ILL [place], [place] [address]Ncb: Date:2017-06-22, [place] [address]Lhx: [id number] (HP) Name:CD:[id number] O (HP)Tel: (624) [address], [place] [phone] (WP) [phone]: 06/22/2017 ALY Ray Primary ALY JOHNSONGAOB: Insurance:[address] [place], [place] [address]OB: [facility] [id number] [facility] Rep[facility], Number: Effective [place], [place] [address]Kqy: Date:2017-06-22 - [place] [address]Xwn: [id number] (HP) Name:CD:[id number] O ()Tel: [phone] [address] [address], [place] [phone] () [phone]: 04/25/2017 ALY ROCA Primary NOT GIVENUNK [place] [address] [place] Insurance:SELF PAY [facility] [address]Wnw: [phone]) Number: Effective Repository [phone] () Date:2017-04-25 04/24/2017 Aly Roca Primary NOT GIVENUNK [place] [address] [place] Insurance:SELF PAY [facility] [address]Bfg: (245) Number: Effective Repository [phone] () Date:2017-04-24 04/22/2017 Aly Roca Primary Aly Ray [place] [address] [place] [facility] Number: [id number] [id number]: [phone] [id number] Repository [phone] () Date:2017-04-22P [address]ATTN: [place] [address]EW: 04/22/2017 Secondary NOT GIVENUNK Nella Insurance:SELF PAY [facility] Number: Effective Repository Date:2017-04-22
== END 2018-03-20 19:30 | disposition home or self-care (01) ==
LOC: WPOUT 18:00 → WP 18:00
PROVIDERS: Visit Provider Obstetrics & Gynecology
DX: O47.1 False labor at or after 37 completed weeks of gestation (principal); Z3A.37 37 weeks gestation of pregnancy
CPT/HCPCS: 59025; 59050; 81001; 87086; 87088; 99218; G0378

== ENCOUNTER 2018-03-29 03:30 | Inpatient (IN) | payer MEDICAID, SELFPAY ==
[2018-03-29] VITALS (19 sets, daily range): BP systolic 96–131; BP diastolic 31–78; PULSE 60–97; RESP 16–20; TEMP 36.4–36.8; O2SAT 93–99; BMI 28.9
[2018-03-29 02:53] LABS: ROM Internal Control Test YES-OK TO RESULT pt. (Internal QC); ROM Patient Test POSITIVE (Negative); Record Kit Lot#, ROM+ J7836
[2018-03-29] MEDS: Lactated Ringers 1,000 ML 999 ML IV (04:43)
[2018-03-29 05:04] LABS: Absolute Lymphocyte Count 2.93 X10^3/ul (0.83-4.51); Absolute Neutrophil Count 7.1 X10^3/uL (2.0-7.7); Basophil# 0.01 X10^3/uL; Basophil% 0.1 % (0-1); Eosinophil# 0.04 X10^3/uL; Eosinophils% 0.4 % (0-5); Hematocrit 36.5 % (37-47); Hemoglobin 12.4 g/dl (12.0-15.0); Lymphocyte # 2.93 X10^3/ul (4.0); Lymphocyte % 26.8 % (19-41); Mean Corpuscular Hgb 30.8 pg (27.0-32.0); Mean Corpuscular Volume 90.6 fL (81-99); Mean Platelet Vol. 10.6 fl (6.2-12.0); Monocyte# 0.76 X10^3/uL; Neutrophil # 7.14 X10^3/uL (2.7-7.7); Neutrophil % 65.3 % (47-70); Platelet Count 232 K/mm3 (150-450); RBC Distribution Width CV 14.5 % (11.6-14.6); RBC Distribution Width SD 47.2 fl (35.1-43.9); Red Blood Count 4.03 M/mm3 (4.2-5.4); White Blood Count 10.9 K/mm3 (4.4-11.0)
[2018-03-29 05:06] LABS: Differential Indicated SCAN CRITERIA MET; POSITIVE COUNT NO; POSITIVE DIFFERENTIAL NO; POSITIVE MORPHOLOGY YES
[2018-03-29 05:10] LABS: Amphetamine Urine VISTA NEGATIVE (<1000 ng/mL); Barbiturate Urine VISTA NEGATIVE (< 200 ng/mL); Benzodiazepine Urine VISTA NEGATIVE (< 200 ng/mL); Cocaine Urine VISTA NEGATIVE (< 300 ng/mL); Ecstacy Urine VISTA NEGATIVE (< 500 ng/mL); Methadone Urine VISTA NEGATIVE (< 300 ng/mL); PCP Urine VISTA NEGATIVE (< 25 ng/mL); THC Urine VISTA NEGATIVE (< 50 ng/mL); Vista UDS pH Range 6
[2018-03-29] MEDS: Lactated Ringers 1,000 ML 150 ML IV (05:45)
[2018-03-29] MEDS: Sodium Citrate/Citric Acid 30 ML UDC PO (06:00)
[2018-03-29] MEDS: Cefazolin 2 GM in 0.9% Normal Saline 100 ML IV (06:00)
--- NOTE | 2018-03-29 06:43 | PCM.HP.OB ---
History Date of Admission: 03/29/18 Final LUCILA: 04/08/18 Gestational age: 38 Weeks and 4 Days History of this : This is a 27 year-old, 2 para 1 female presents at 38 weeks gestation with spontaneous rupture of membranes. She received her care at an outside facility but arrived to our labor and delivery because she lives very near here. She is having no painful contractions. No gross vaginal bleeding. She has had good movement. She is had adequate care. She has one previous 35-week delivery. She had a under general anesthetic for preeclampsia with severe features. She states that there were no complications during that or after. She denies any problems with her blood pressure or other medical issues during this . Her past medical history is significant for history of Crohn's disease. Past surgical history significant for 1 previous and one colon resection for Crohn's disease Occasions during the of included Humira, aspirin, vitamins and promethazine. She was on doxylamine and vitamin B6 earlier in the . Allergies No Known Allergies Allergy (Verified 03/29/18 02:56) Home Medications: Home Medications Adalimumab [Humira] 40 mg SQ Q14D 03/19/16 Pnv No.95/Ferrous Fum/Folic AC [ Formula] 1 each PO DAILY 08/30/17 Cyanocobalamin (Vitamin B-12) [Vitamin B-12] 1 mcg PO DAILY 09/29/17 Aspirin [Aspirin, Baby] 81 mg PO DAILY@0800 01/15/18 Amoxicillin 500 mg PO TID 03/20/18 Smoking Status: Heavy Smoker (>10/day) Alcohol: None - During the . She used occasionally before Number of Fetus(es): 1 Heart Tracing: Normal baseline, moderate variability, category 1 TOCO Analysis: Irregular contractions History Past Pregnancies: Past Pregnancies Delivery Date Name GA/Weeks Outcome Route Weight Gender Labor Length Anesthesia Delivery Location Provider FOB Expected Delivery Method: Repeat Section Review of Systems Constitutional: Denies: Anorexia, Chills, Fever Eyes: Denies: Blurred vision HEENT: Denies: Sore Throat Cardiovascular: Denies: Chest Pain, Chest Pressure Respiratory: Denies: Cough Gastrointestinal: Denies: Abdominal Pain Genitourinary: Denies: Dysuria Skin: Denies: Rash Neurological: Denies: Blurred vision, Change in Speech Physical Exam General: Alert, Cooperative, No apparent distress Cardiovascular: Regular rate Lungs: Normal air movement Abdomen: Bowel Sounds Present, Soft, Non Tender, Non-Distended, Appropriate for Gestational Age Extremities:: Other - edema 1+ Neurological: Cranial nerves II-XII grossly intact HAND MEAT SALTER: Normal external genitalia Estimated gestational size: Appropriate for gestational size Presentation: Cephalic Assessment/Plan This is a 27 year-old, 2 para 1 female at 38+ weeks with spontaneous rupture membranes for repeat section. Repeat was discussed with the patient, risk benefits and alternatives were discussed with the patient, her questions were answered to her satisfaction she desires to proceed. Consent was signed
[2018-03-29] MEDS: Oxytocin 30 units/NS 500 ml 30 UNITS/500 ML IV.SOLN 167 UNITS IV (06:59)
[2018-03-29] MEDS: Ondansetron 4 MG/2 ML Vial IV (07:20)
[2018-03-29] MEDS: Ketorolac 30 MG/ML Syringe IV ×3 (07:38→20:29)
--- NOTE | 2018-03-29 07:39 | PCM.OB.CSR ---
Delivery Classification: Scheduled Final LUCILA: 04/08/18 Gestational age: 38 Weeks and 4 Days Indications for : Repeat Elective , - - premature rupture of membranes Description of Procedure: Procedure was repeat low transverse section Via Pfannenstiel skin incision and lysis of small bowel adhesions from the anterior abdominal wall The patient was taken to the operating room. She was prepped and draped in the dorsal supine position with a leftward tilt. A Pfannenstiel skin incision was made approximately 2 cm above the symphysis pubis and carried through to underlying layer fascia with the scalpel. The fascia was incised incised in the midline and extended laterally with the Perez scissors. The fascia was dissected off the rectus muscles with blunt and sharp dissection. The rectus muscles were in the midline and the peritoneum was entered bluntly. The peritoneal incision was stretched and the bladder blade was placed. The uterine incision was made in a low transverse fashion with the scalpel and extended superiorly and inferiorly with blunt dissection. The amniotic membranes were ruptured bluntly and clear amniotic fluid returned. The 's head was brought to the incision in the flexed position and delivered without difficulty. The remainder of the infant was delivered with gentle traction and fundal pressure in the standard fashion. The mouth and nares were bulb suctioned. The cord was clamped and cut as the infant was stimulated. Cord clamping was delayed. The infant was handed off to the waiting nursing staff. The placenta was delivered with fundal massage and gentle traction in the standard fashion. The uterus was exteriorized and cleared of all clots and debris. The cervix was dilated with a ring forcep. The uterine incision was closed with #1 Vicryl in a running locked fashion. A second layer of the same suture was used in an imbricating fashion. There was some bleeding from the left uterine artery at the corner of the incision. Several [id number] sutures were needed around this to obtain hemostasis. Some Guadalupe was placed over the area and pressure was held for 2 minutes. Hemostasis was then assured. The uterus was placed back into the peritoneal cavity and hemostasis was again confirmed. The rectus muscles were examined and any bleeding was Bovie cauterized. It was noted that there were some extensive small bowel adhesions to the anterior abdominal wall just above where the peritoneum had been stretched to allow for delivery. There was some very acute angles in the small bowel in this area. Approximately 8 minutes was spent dissecting down the small bowel with care. I dissected down as much as I could to near the ligament of Treitz. The bowel was examined after the adhesions were taken down and it was intact. There were no more acute angles of the small bowel. The parietal peritoneum and rectus muscles were closed en bloc with an 0 Vicryl running suture. The surgical teams outer gloves were then changed. The rectus fascia was examined and any bleeding was Bovie cauterized and the rectus fascia was closed with 1 PDS suture in a running standard fashion. The subcutaneous tissue was examining and any bleeding was Bovie cauterized. The subcutaneous tissue was reapproximated with 3-0 Vicryl suture. The skin was closed in a subcuticular fashion by the GATE SERVICES SUPERVISOR with me present in the labor and delivery suite. I performed the remainder of the procedure with assistance. All sponge, lap, and needle counts were correct. The patient was taken to her room for recovery in a stable condition. Amniotic Membrane Rupture Type: Spontaneous - At home Amniotic Fluid Description: Clear Placenta Disposition: [facility] Drain: Lugo to straight drain Fluids Replaced: 1100 Cord Entanglement: None Cord Vessel Description: 3 Vessels Esitmated Blood Loss (ml): 800 Infant Gender: Male (1 minute): 8 (5 minute): 9 Delayed cord clamping: Yes Pre-op Antibiotic Given: Ancef 2 grams IV x1 Complications: None - Admit VTE Documentation VTE Present on Admission: No VTE Mechan Device Prophylaxis: SCD's Reason prophylaxis not ordered:: Procedure Not Indicated
[2018-03-29] MEDS: Lactated Ringers 1,000 ML 100 ML IV ×2 (07:55→14:11)
[2018-03-29] MEDS: Senna/Docusate Sodium 1 Tablet PO ×2 (10:11→22:09)
[2018-03-29] MEDS: AMOXICILLIN 500 MG CAPSULE PO ×2 (14:49→22:09)
[2018-03-29] MEDS: Nalbuphine 10 MG/ML Ampul 5 MG IV (23:08)
[2018-03-30] VITALS (8 sets, daily range): BP systolic 101–132; BP diastolic 53–83; PULSE 74–81; RESP 14–18; TEMP 36.6–37.6; O2SAT 97–99
[2018-03-30] MEDS: Lactated Ringers 1,000 ML 100 ML IV (00:28)
--- NOTE | 2018-03-30 00:30 | NURSING ---
Pt given Nubain for itching prior. Pt then called this RN to room for severe pain to back and incision site. Pt repositioned and heat pad applied with no relief. Dr. Ocampo notified of change in pt status. Telephone order given for pain medication, see MAR for documentation. After administration of pain medication pt states pain has reduced. Pt proceeded to rest comfortably in bed.
[2018-03-30] MEDS: HYDROmorphone 0.5 MG/0.5 ML SYRINGE IV ×2 (00:36→01:09)
[2018-03-30] MEDS: Ketorolac 30 MG/ML Syringe IV ×4 (02:36→20:41)
[2018-03-30] MEDS: AMOXICILLIN 500 MG CAPSULE PO ×3 (06:12→22:04)
[2018-03-30 06:29] LABS: Hematocrit 28.4 % (37-47); Hemoglobin 9.4 g/dl (12.0-15.0); Mean Corp Hgb Conc 33.1 g/gl (32-36); Mean Corpuscular Hgb 30.1 pg (27.0-32.0); Mean Platelet Vol. 10.2 fl (6.2-12.0); Platelet Count 187 K/mm3 (150-450); RBC Distribution Width CV 14.7 % (11.6-14.6); RBC Distribution Width SD 48.6 fl (35.1-43.9); Red Blood Count 3.12 M/mm3 (4.2-5.4); White Blood Count 10.6 K/mm3 (4.4-11.0)
[2018-03-30 06:31] LABS: Scan Indicated on CBC? Y/N NO
[2018-03-30 07:39] LABS: Rapid Plasmin Reagin (RPR) NONREACTIVE (NONREACTIVE)
[2018-03-30] MEDS: oxyCODONE 5 MG Tablet PO ×3 (07:50→19:23)
[2018-03-30] MEDS: 0.9% Saline Lock 10 ML Syringe IV ×5 (08:28→20:41)
--- NOTE | 2018-03-30 08:48 | PCM.PN.OB ---
Subjective: Pain well controlled, average lochia. No flatus. No N/v. - Physical Exam General: Alert, Cooperative, No apparent distress Abdomen: Soft, Distended - mildly, softly, Tender - appropriately Skin: Incision - bandage clean, dry and intact Vital Signs Temp Pulse Resp BP Pulse Ox 98.3 F 81 18 116/73 98 03/30/18 07:46 03/30/18 08:00 03/30/18 08:00 03/30/18 07:46 03/30/18 08:00 Oxygen Delivery Method Room Air Weight: 67.132 kg Body Mass Index (BMI) 28.9 Intake and Output for Last 24 Hours 03/28/18 03/29/18 03/30/18 23:59 23:59 23:59 Intake Total 3479 / 3479 1122 / 1122 Output Total 675 / 675 1250 / 1250 Balance 2804 / 2804 -128 / -128 Laboratory Tests Past 24 Hrs 03/29/18 03/30/18 04:40 06:12 WBC 10.6 RBC 3.12 L Hgb 9.4 L Hct 28.4 L MCV 91.0 MCH 30.1 MCHC 33.1 RDW 14.7 H RDW Differential 48.6 H Plt Count 187 MPV 10.2 RPR NONREACTIVE Medical Necessity - Tobacco Use Smoking Status: Heavy Smoker (>10/day) Assessment/Plan POD#1 doing well reoutine care working on
[2018-03-30] MEDS: Senna/Docusate Sodium 1 Tablet PO ×2 (09:28→22:03)
--- NOTE | 2018-03-30 14:50 | CASEMGMT ---
Social Work Assessment Labor and Delivery Unit Date of Referral: 03-29-2018 Time of Referral: 1334 Referred By: Dr. Guzman Date of Intervention: 03-30-2018 Time of Intervention: 1450 Reason for Referral: resources; first child adopted; is not father of baby History obtained from: Medical records and mother of baby (MOB) Leonie Renteria. Household composition: MOB reports that she and MOB?s Primitivo Renteria lives with a 19-year-old male friend for the last couple of months. MOB reports intent to take to this home at discharge. Patient's parent/guardian status: MOB reports has been to Ed for 6 years now. MOB is 27 years old and Ed is 49 years old. MOB denies any form of abuse in relationship with Ed. Ed had an 18-year-old daughter from another relationship. [place], Ja Renteria, is MOB?s second child. MOB reports she and Ed were split up for a few months and in that time, MOB became . MOB found out about after reconciling with Ed. MOB reports Ed is being supportive of MOB and the baby. MOB reports that delivered a baby boy in 2010 in [place], [place], and made an adoption plan for that baby. MOB reports was not ready to be a mother at that time. Medical History: MOB is G2, P1 to 2 after delivering Ja. MOB with care starting in August [address] [place] [address] Flores. HAIR?s water broke at home, squad was called, and MOB was brought to nearest hospital for delivery, [facility]. Baby born at 37 weeks gestation. Baby born weighing 6 pounds 14 ounces, ?s 8 and 9 at 1 and 5 minutes of life. MOB planning to breast feed baby. MOB with history of Crohns disease and surgery in 2004. Educational Status: MOB reports to have graduated high school, denies any issues with reading, writing, or learning comprehension. 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 MOB reports FODanni is working at a factor on 3rd shift currently. Supplies: MOB reports to have needed baby supplies including car seat, pack-n-play, bouncer, clothing to get started, diapers, wipes, a couple of bottles, and plans to get a breast pump from the hospital. Childcare/Caregiver(s): MOB will be primary caregiver and then will look for childcare when MOB is ready to return to work. Transportation: MOB does not drive currently, lost license temporarily due to a DUI. MOB reports FOB drives and there is one car. MOB also uses [employer] transportation and has taxi vouchers through [employer]. Programs/Agencies Involved: MOB reports to have food and medical through [employer]. Reports to have WIC. Reports that worked with [employer] during . [employer] for subsidized taxi vouchers. [employer] for rapid rehousing program ( also reportedly otherwise involved for addiction issues). On [facility] housing waiting list. MOB reports agreement to a [facility] referral. Children Services/Legal Issues: MOB reports history of DUI around the time of MOB?s and ?s separation. MOB reports this is the only DUI MOB had ever had. No reports of children services history. Behavioral Health Issues: Mental Health History: MOB denies any history of depression or anxiety, though through conversation reports that did have some depression during this and initially when found out, mostly due to the circumstances and wishing the MOB?s was the father. MOB was worried how Ed would take the knowledge of the . MOB denied any history of depression, but once symptoms explained reports that may have had some depression after all. MOB denies any history of suicidal ideation, plans, intent, or past attempts; denies any thoughts for homicide or harm to others. No formal treatment history for emotional health. Substance Use History: Chart indicates MOB drinks socially but during social work intervention MOB endorses belief that has had dependency issues in the past with alcohol. MOB reports only that tends to overuse, that once starts (usually in the summer months) it is hard for MOB to stop. MB reports may have drank a few times in the beginning of the , before knowledge of . MOB reports that ceased use after finding out. MOB reports have tried marijuana, ?years ago.? MOB denies history of other drug use such as heroin, cocaine, meth, or narcotic pills. MOB reports is surprised that does not have a dependency on pain pills as MOB was prescribed pain meds at a young age for history of Crohn?s disease. MOB does smoke tobacco, smoked about a half a pack a day during , down from a whole pack a day. Family History: MOB was adopted but reports to know that biological father had history of alcoholism. Drug Screens: Maternal drug screen noted to be negative upon admission to deliver on 03.29.2018. No other drug screens noted in the care record. Family/Social Stressors: Unplanned and unexpected , is not the father of the baby as were for a short time. MOB with some ambivalence initially upon finding out about , mostly due to worry about would take the news. MOB and moved from [facility] to [facility] recently, though MOB not clear on how long this has been. MOB and are currently residing with a friend (19 year old who reportedly had autism) for the last couple of months due to financial issues and having a hard time keeping a job. MOB reports issues from ?s ?past? make it hard to find or keep a job. 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 MOB reports has been clean from meth for about 2 months now, reports that can tell when is using, and reports that does not use hogshead stripper but goes in spurts for short periods of time. MOB reports is involed with [facility] [employer] for substance issues. MOB indicates 's drug history has impacted housing and finances. MOB does have limited support system, though does not endorse this as a worry or concern regarding MOB managing transition home with a new baby. Support Systems: MOB reports will be supporting to help with baby. MOB reports there are a couple of people from work and MOB?s for emotional support. MOB unable to identify even one person, outside of , that could help MOB for a few hours with the baby. Depression/Shaken Baby/Safe Sleeping: Talked with MOB about safe sleeping and shaken baby prevention. Talked with MOB about depression and anxiety, risk factors and symptoms to look for. Discussed with MOB there is risk present, that no shame if symptoms occur, that many women experience this and just important to seek out help and support. ASSESSMENT: MOB cooperative with social work visit, though initially reserved and guarded. As conversation went on MOB more talkative and willing to share information, though still slightly guarded such as not really being clear if ?s drug history as reason for difficulty with employment. MOB cared for baby during social work visit, attentive, gentle, and overall appropriate. MOB held fair to normal eye contact. Affect constricted. MOB reports to love the baby and to have positive feelings for the baby. MOB initially attempting to say that has no worries about depression, then asked if this brief writer was going over risks for the baby?s sake. Educated MOB that yes for baby?s sake and for MOB?s as it is important for women as well to know what can happen and where to go for help. MOB reports to feel that she herself will be enough to care for baby, and not voicing any thoughts that will need breaks or help with baby. MOB accepting of Help Me Grow referral however. MOB accepting of resource provided and seems well connected with resources in the area. Safe Plan of Care for infant related to substance use: Addressed with MOB what MOB will do if starts to see signs of using meth again. MOB indicates that has not really thought of this, only that will know the signs. Explored with MOB whether MOB will allow to care for baby if is showing signs of use, and MOB reports will not allow. Addressed with MOB how MOB?s own endorsed alcohol dependence may impact care of baby. MOB reports to be done with alcohol and does not see this as a future concern. PLAN: MOB and baby to home when ready. Community resources provided including [facility] resource list, depression packet, [facility] information, shaken baby prevention and safe sleeping, [employer] brochure for early head start program, [facility] van transportation, and [employer] benefits for new moms. [facility] referral being made. Anticipate referral to Children services related to substance exposed early on in and risk factors identified during assessment. -CELSO Yun, PARTS COUNTER SPECIALIST
--- NOTE | 2018-03-30 16:09 | CASEMGMT ---
Addendum entered and electronically signed by Rebecca Doherty 03/30/18 17:16: Reviewed and approve SIGNS SALES REPRESENTATIVE student leadership program intern documentation below. -ALAN Yun, LIME HIDE INSPECTOR Original Note: Social Work Labor and Delivery With verbal consent form the mother a Help Me Grow referral was submitted securely through the [place] [facility]'s website. No other services requested or indicated at this time. -Kim Corrales, SIGNS SALES REPRESENTATIVE Student Neonatal Intensive Care Unit Nurse.
[2018-03-30] MEDS: Ondansetron 4 MG/2 ML Vial IV (20:41)
[2018-03-30] MEDS: Acetaminophen 500 MG Tablet 1000 MG PO (22:03)
[2018-03-31] MEDS: Ketorolac 30 MG/ML Syringe IV (02:53)
[2018-03-31] MEDS: 0.9% Saline Lock 10 ML Syringe IV (02:53)
[2018-03-31 02:57] VITALS: BP 122/73; PULSE 68; RESP 16; TEMP 36.8; O2SAT 96
[2018-03-31] MEDS: oxyCODONE 5 MG Tablet PO ×2 (04:49→22:48)
[2018-03-31] MEDS: AMOXICILLIN 500 MG CAPSULE PO (06:41)
--- NOTE | 2018-03-31 07:49 | PCM.PN.OB ---
Subjective: pt seen at bedside, doing well. pt reports pain overall controlled. pt reports + flatus, voiding w/o difficulty. lochia mild. - Physical Exam General: Alert, Oriented x3 Abdomen: Soft, Non-Distended, - - fundus firm. incision dressing dry an intact Extremities: No Calf Tenderness Vital Signs Temp Pulse Resp BP Pulse Ox 98.2 F 68 16 122/73 H 96 03/31/18 02:57 03/31/18 02:57 03/31/18 02:57 03/31/18 02:57 03/31/18 02:57 Oxygen Delivery Method Room Air Weight: 67.132 kg Body Mass Index (BMI) 28.9 Intake and Output for Last 24 Hours 03/29/18 03/30/18 03/31/18 23:59 23:59 23:59 Intake Total 3479 / 3479 1122 / 1122 Output Total 675 / 675 3500 / 3500 Balance 2804 / 2804 -2378 / -2378 Medical Necessity - Tobacco Use Smoking Status: Heavy Smoker (>10/day) Assessment/Plan POD#2, doing well routine care pain mgmt anticipate dc home tomorrow
--- NOTE | 2018-03-31 07:54 | DCINST_ITS ---
Discharge Diet: No Restrictions Discharge Activity: Return to Normal Activity, May Not Drive - for 2 weeks, May not drive while taking narcotic pain medications., May Shower, May Take a Tub Bath - in 7 days. May resume sexual activity in: 4-6 weeks Lifting Restrictions: 20 pounds Additional Activity Instructions:: Nothing in the vagina for 4-6 weeks. You may return to work/school in 6 weeks. Call your doctor if your incision/area has: Continuous Slow Oozing, Sudden Increased Bleeding, Increased Pain/ Swelling, Increased Redness, Foul Smelling Discharge Call your doctor if you observe: Fever of 101 or Higher, Using more than one pad per hour - for 2 hours Suture Line Care: Avoid Pulling/Pushing, Avoid Pinching/Bending Cleanse incision/area with: Keep Dressing Clean & Dry Additional Instructions: If you experience any of the following, contact your healthcare provider. * Bleeding that soaks a pad every hour for 2 hours * Fever 100.4 or higher * Unrelieved incision or abdominal pain * Swelling, redness, discharge or bleeding from your incision or episiotomy site * Your incision begins to separate * Problems urinating (including inability to urinate or burning while urinating). * Visual changes * Severe headache * Flu-like symptoms * Pain or redness in one of both of your breasts * Pain, warmth, tenderness or swelling in your legs, especially the calf area * Frequent nausea and vomiting * Symptoms of depression or anxiety If you experience any of the following, call 911 or go to the nearest Emergency Room. * Chest pain * Problems breathing * Seizure activity * Partial or complete paralysis of a body part, slurred speech, weakness or drooping of the face, or a sudden inability to walk or hold your balance Allergies/Adverse Reactions: Allergies No Known Allergies Allergy (Verified 03/29/18 02:56) Medications to take at Discharge Adalimumab [Humira] 40 mg SQ Q14D 03/19/16 Pnv No.95/Ferrous Fum/Folic AC [ Formula] 1 each PO DAILY 08/30/17 Cyanocobalamin (Vitamin B-12) [Vitamin B-12] 1 mcg PO DAILY 09/29/17 Aspirin [Aspirin, Baby] 81 mg PO DAILY@0800 01/15/18 Amoxicillin 500 mg PO TID 03/20/18 Docusate Sodium [Colace] 100 mg PO BID #30 capsule 03/31/18 Naproxen [Naprosyn] 250 - 500 mg PO Q8H PRN PRN #60 tablet 03/31/18 Oxycodone HCl/Acetaminophen [Percocet 5/325] 1 tablet PO Q6H PRN PRN 7 Days #24 tablet 03/31/18 SimETHICONE [Mylicon] 80 mg PO PCHS PRN #30 tablet 03/31/18 The following prescriptions were given: Oxycodone HCl/Acetaminophen [Percocet 5/325] 1 tablet PO Q6H PRN PRN 7 Days #24 tablet PRN Reason: Pain Naproxen [Naprosyn] 250 - 500 mg PO Q8H PRN PRN #60 tablet PRN Reason: Mild Pain (-05/06) SimETHICONE [Mylicon] 80 mg PO PCHS PRN #30 tablet PRN Reason: Indigestion/stomach pain Docusate Sodium [Colace] 100 mg PO BID #30 capsule Follow-Up: Call to make an appointment with your doctor for an incision check in 1-2 weeks. You will also need a 6 week post- follow up appointment. Test results from this visit will be discussed in further detail at your follow- up appointment, if applicable. Please Follow Up With: Faina Gabriel MD - Call to make an appointment for an incision check in 1-2 [phone] When: You will need a post- check in 6 weeks. Primary Care Physician: Care Physician,No Primary [Primary Care Provider] -
[2018-03-31 08:15] VITALS: BP 130/79; PULSE 60; RESP 16; TEMP 36.8
[2018-03-31] MEDS: Senna/Docusate Sodium 1 Tablet PO (10:06)
[2018-03-31] MEDS: Naproxen 250 MG Tablet PO (13:38)
[2018-03-31 13:44] VITALS: BP 142/88; RESP 16; TEMP 37.2
[2018-03-31 20:20] VITALS: BP 126/75; PULSE 66; RESP 16; TEMP 37.1; O2SAT 97
[2018-03-31] MEDS: Docusate Sodium 100 MG Capsule PO (20:23)
[2018-03-31] MEDS: Acetaminophen 500 MG Tablet 1000 MG PO (20:24)
[2018-04-01 03:00] VITALS: BP 126/83; PULSE 73; RESP 16; TEMP 36.5; O2SAT 96
[2018-04-01 08:48] VITALS: BP 130/79; PULSE 61; RESP 16; TEMP 36.7; O2SAT 98
[2018-04-01] MEDS: Acetaminophen 500 MG Tablet 1000 MG PO (09:01)
[2018-04-01] MEDS: Docusate Sodium 100 MG Capsule PO (09:02)
--- NOTE | 2018-04-01 09:13 | PCM.PN.OB ---
Subjective: pt seen at bedside, doing well. pt reports good pain control. lochia mild. - Physical Exam General: Alert, Oriented x3 Abdomen: Soft, Non-Distended, - - fundus firm. INcision dressing dry and intact Extremities: No Calf Tenderness Vital Signs Temp Pulse Resp BP Pulse Ox 98.0 F 61 16 130/79 H 98 04/01/18 08:48 04/01/18 08:48 04/01/18 08:48 04/01/18 08:48 04/01/18 08:48 Oxygen Delivery Method Room Air Weight: 67.132 kg Body Mass Index (BMI) 28.9 Intake and Output for Last 24 Hours 03/30/18 03/31/18 04/01/18 23:59 23:59 23:59 Intake Total 1122 / 1122 Output Total 3500 / 3500 500 / 500 Balance -2378 / -2378 -500 / -500 Medical Necessity - Tobacco Use Smoking Status: Heavy Smoker (>10/day) Assessment/Plan POD#3, doing well routine care pain mgmt dc home
--- NOTE | 2018-04-01 09:15 | DS.PCM_ITS ---
Discharge Summary Date of Admission: 03/29/18 Date of Discharge: 04/01/18 Summary: Patient was admitted to the hospital on March 29, 2018 with spontaneous rupture of membranes was a repeat unknown to the [facility]. Patient was a patient from [place]. Patient underwent a repeat section by Dr. Nitza Rader without complication. There were small bowel adhesions noted from the previous surgery. Patient had an uncomplicated postoperative course was discharged home on postoperative day #3 in stable condition. - Physical Exam Vital Signs Temp Pulse Resp BP Pulse Ox 98.0 F 61 16 130/79 H 98 04/01/18 08:48 04/01/18 08:48 04/01/18 08:48 04/01/18 08:48 04/01/18 08:48 Oxygen Delivery Method Room Air Weight: 67.132 kg Body Mass Index (BMI) 28.9 Intake and Output for Last 24 Hours 03/30/18 03/31/18 04/01/18 23:59 23:59 23:59 Intake Total 1122 / 1122 Output Total 3500 / 3500 500 / 500 Balance -2378 / -2378 -500 / -500
[2018-04-01 13:51] VITALS: BP 137/76; PULSE 69; RESP 16; TEMP 36.8; O2SAT 98
--- NOTE | 2018-04-02 16:30 | CASEMGMT ---
Social Work Labor and Delivery Received note from nursing that mother of baby (MOB) and baby discharged over the weekend. MOB was unable to obtain pediatric follow up due to the weekend timeframe. Nursing note asked that this property underwriter follow up with MOB to see that appointment was made by MOB. Called MOB at [phone] on this date and left message (without identifying patient information) to call this property underwriter back. MOB promptly called this property underwriter back and left message indicating that was able to get baby follow up with film drying machine operator Dr. Cortez's office on 04-04-18 at [address] Pierre (ENT) for 04-16-18 at 1310. Did make call to [facility] today. Spoke with Yaquelin. Referral given due to baby exposed early on in first trimester to alcohol, per a report from MOB. MOB did endorse to this property underwriter cessation of alcohol after finding out about . Reported additional risk factors noted regarding maternal history of alcohol abuse, MOB's with addiction issues, financial instability and limited support available to MOB. Let Yaquelin know that MOB appeared to be doing well with baby during hospital stay, appropriate and cooperative with social media marketing specialist. Let Yaquelin know that MOB seems to be linked with services in the community and did agree to a [facility] referral for added support. From conversation with Yaquelin, referral likely to be an information and referral call only, not to be screened in unless there is any concerned past history with MOB or MOB's . No other services requested or indicated. -ALAN Yun, SOLDERING MACHINE TENDER
== END 2018-04-01 14:10 | disposition home or self-care (01) | DRG 540 ==
LOC: WPOUT 03:32 → WP 03:32
PROVIDERS: Admitting Provider Obstetrics & Gynecology; Referring Provider Obstetrics & Gynecology; Visit Provider Obstetrics & Gynecology
DX: O99.62 Diseases of the digestive system complicating childbirth (principal); O99.334 Smoking (tobacco) complicating childbirth; Z3A.38 38 weeks gestation of pregnancy; Z37.0 Single live birth; Z79.82 Long term (current) use of aspirin; Z79.899 Other long term (current) drug therapy
CPT/HCPCS: 59025; 59050; 80307; 84112; 85025; 85027; 86592; 86850; 86900; 99218; J7120; A4216; G0378; J2405

== ENCOUNTER 2022-02-04 17:51 | Inpatient (IN) | payer MEDICAID, SELFPAY ==
[2022-02-04 17:52] VITALS: BP 161/95; PULSE 122; RESP 18; TEMP 36.4; O2SAT 96; BMI 31.6
--- NOTE | 2022-02-04 18:18 | EX.ED.DYSGE1 ---
HPI History of Present Illness Chief Complaint: Abd Pain Informant: patient Onset/Context/Timing Onset: Yesterday Context: Gradual Onset Current Severity: Moderate Maximum Severity: Moderate Narrative Narrative: Patient present secondary to abdominal pain with vomiting. She states she had some mild right mid abdominal pain last evening that worsened today. She has had nausea and vomiting secondary to pain. She is a history of Crohn's disease and reports having a third of her bowel removed previously. She states sometimes she will get similar pain when she is just constipated and it is always in the same location. She tried taking some MiraLAX today hoping it was just constipation but vomited the medication back up. She believes its been approximately 36 hours since her last bowel movement. She does not believe she is passing gas today. [facility] Medical History Crohn's disease Home Medications adalimumab 40 mg/0.8 mL subcutaneous syringe kit (Humira) 40 mg SQ Q14D crohns 03/19/16 [History Last Taken 03/21/18 40 mg] vit no.95-ferrous fumarate 28 mg-folic acid 800 mcg tablet ( Multivitamins) 1 ea PO DAILY 08/30/17 [History Last Taken 03/28/18 10:00 1 tab] cyanocobalamin (vitamin B-12) 1,000 mcg capsule 1 mcg PO DAILY 09/29/17 [History Last Taken 03/28/18 10:00 1 tab] aspirin 81 mg chewable tablet 81 mg PO DAILY@0800 hx pre eclampsia last pre 01/15/18 [History Last Taken 03/28/18 10:00 1 tab] amoxicillin 500 mg tablet 500 mg PO TID ear ache and sore throat 03/20/18 [History Last Taken 03/28/18 23:00 500 mg] docusate sodium 100 mg capsule (DOK) 100 mg PO BID ##30 03/31/18 [Rx Last Taken Unknown] naproxen 250 mg tablet 250 - 500 mg PO Q8H PRN PRN Mild Pain (1-310) ##60 03/31/18 [Rx Last Taken Unknown] simethicone 80 mg chewable tablet (Mi-Acid Gas Relief (simethicone)) 80 mg PO HS PRN Indigestion/stomach pain ##30 03/31/18 [Rx Last Taken Unknown] Allergy/AdvReac Type Severity Reaction Status Date / Time No Known Allergies Allergy Verified 02/04/22 17:52 Surgical History (Updated 02/04/22 @ 18:[address] Henrietta Samayoa MD) History of bowel resection Social History Smoking Status: Current every day smoker tobacco type: e-cigarettes ROS ROS ED Constitutional Constitutional ED: Denies chills or fever(s) Eyes Eyes: Denies change in vision or discharge from eye(s) ENT ENT ED: Denies discharge from eye(s), rhinorrhea or sore throat Cardiovascular Cardiovascular: Denies chest pain or palpitations Respiratory/Chest Respiratory/Chest: Denies cough or dyspnea Gastrointestinal Gastrointestinal: Reports abdominal pain, nausea and vomiting; Denies diarrhea Genitourinary Genitourinary ED: Denies difficulty urinating or dysuria Musculoskeletal Musculoskeletal: Denies back pain or extremity pain Integumentary Denies Abrasions or rash Neurologic Neurologic: Denies headache(s) or weakness Psychiatric Psychiatric: Denies anxiety or depression Allergic/Immunologic Allergic/Immunologic ED: Denies lip swelling or urticaria EXAM Physical Exam Const Vital Signs: 02/04/22 17:52 02/04/22 20:21 Temperature 97.5 F L Temperature Source Temporal Pulse Rate 122 H 65 Respiratory Rate 18 14 Blood Pressure 161/95 H 117/78 Blood Pressure Mean 117 91 Pulse Ox 96 99 Oxygen Delivery Method Room Air Room Air Positive well nourished and well developed General Appearance ED: well developed HEENT Reports normocephalic and head/scalp atraumatic Eyes PERRL and EOMs intact bilaterally Neck supple Chest Wall inspection of chest normal and palpation of chest normal Resp normal respiratory effort and clear to auscultation bilaterally Cardio regular rhythm Rate: tachycardic GI GI Narrative: Mild abdominal tenderness palpation. No guarding or rebound. Hypoactive bowel sounds. Palpation: soft Extremity normal to inspection Neuro oriented x3 and no sensory deficits noted Sensorium / Orientation: alert Motor Exam: strength 5/5 throughout Psych mental status grossly normal Skin no rashes or lesions noted MDM MDM MDM Narrative Medical decision making narrative: Patient is given morphine and Zofran along with IV fluids. Lab work obtained and CT scan of the abdomen pelvis with IV contrast ordered. Lab Data Attestation: I reviewed the patient's lab results. Labs: Laboratory Results - last 24 hr 02/04/22 02/04/22 02/04/22 18:15 18:15 18:15 WBC 13.8 H RBC 5.35 Hgb 14.4 Hct 43.9 MCV 82.1 MCH 26.9 L MCHC 32.8 RDW Std Deviation 39.1 RDW Coeff of Ila 13.2 Plt Count 378 MPV 8.4 Immature Gran % (Auto) 0.500 Neut % (Auto) 71.3 H Lymph % (Auto) 22.6 [place] % (Auto) 5.0 Eos % (Auto) 0.4 Baso % (Auto) 0.2 Absolute Neuts (auto) 9.8 H Absolute Lymphs (auto) 3.11 Nucleated RBC % 0 Sodium 138 Potassium 3.7 Chloride 107 Carbon Dioxide 27.0 Anion Gap 4 L BUN 10 Creatinine 0.76 Estim Creat Clear Calc 77.75 Est GFR (MDRD) Af Amer 115 Est GFR (MDRD) Non-Af 95 BUN/Creatinine Ratio 13.2 Glucose 96 Calcium 9.3 Total Bilirubin 0.80 Direct Bilirubin 0.20 AST 25 ALT 43 Alkaline Phosphatase 60 Total Protein 7.7 Albumin 3.8 Globulin 3.9 Lipase 94 Serum , Qual NEGATIVE Urine Color Urine Clarity Urine pH Ur Specific [place] Urine Protein Urine Glucose (UA) Urine Ketones Urine Occult Blood Urine Nitrite Urine Bilirubin Urine Urobilinogen Ur Leukocyte Esterase Urine RBC Urine WBC Ur Squamous Epith Cells Urine Bacteria Urine Mucus 02/04/22 18:15 WBC RBC Hgb Hct MCV MCH MCHC RDW Std Deviation RDW Coeff of Ila Plt Count MPV Immature Gran % (Auto) Neut % (Auto) Lymph % (Auto) [place] % (Auto) Eos % (Auto) Baso % (Auto) Absolute Neuts (auto) Absolute Lymphs (auto) Nucleated RBC % Sodium Potassium Chloride Carbon Dioxide Anion Gap BUN Creatinine Estim Creat Clear Calc Est GFR (MDRD) Af Amer Est GFR (MDRD) Non-Af BUN/Creatinine Ratio Glucose Calcium Total Bilirubin Direct Bilirubin AST ALT Alkaline Phosphatase Total Protein Albumin Globulin Lipase Serum , Qual Urine Color Yellow Urine Clarity Clear Urine pH 5.0 Ur Specific [place] 1.025 Urine Protein 30 H Urine Glucose (UA) Normal Urine Ketones 5 H Urine Occult Blood 25 H Urine Nitrite Negative Urine Bilirubin Negative Urine Urobilinogen Normal Ur Leukocyte Esterase 100 H Urine RBC 0 SEEN Urine WBC 5-10 SEEN Ur Squamous Epith Cells 0-5 SEEN Urine Bacteria 2+ Urine Mucus 0 SEEN Radiography Diagnostic Testing: Clinical Impression(s) from Imaging Studies Abdomen/Pelvis CT 02/04/22 19:18 IMPRESSION: Small bowel obstruction with likely transition point in the right lower quadrant. Electronically Signed: Jose Williamson MD at 20:10 EST , Treatment and Re-Evaluation Narrative: White count is slightly elevated at 13.8 but normal differential is noted. Chemistry studies, LFTs, lipase are unremarkable. test is negative. Urinalysis reveals 2+ bacteria with 5-10 white cells and no nitrites. She has no urinary symptoms. CT scan of the abdomen and pelvis reveals a small bowel obstruction with a transition point in the right lower quadrant. Previous right hemicolectomy is noted. Patient did require Phenergan for continued nausea. Patient's surgeon, Dr. Izquierdo, is at [facility]. I spoke with Dr. Trotter, on-call for [facility]. She does not feel comfortable keeping the patient here given her underlying Crohn's disease. I am attempting to find placement at a [facility] facility where she can be appropriately cared for. Discharge Plan Triage Chief Complaint: Abd Pain ED Provider: Henrietta Samayoa Dx/Rx/DC Orders Prescriptions: No Action adalimumab [Humira] 40 MG/0.8 ML Ml 40 mg SQ Q14D Label Comments: CHRONS PNV cmb#95-ferrous fumarate-FA [ Multivitamins] 1 EACH tablet 1 ea PO DAILY cyanocobalamin (vitamin B-12) 1,000 MCG capsule 1 mcg PO DAILY aspirin 81 MG Tab.Chew 81 mg PO DAILY@0800 amoxicillin 500 MG tablet 500 mg PO TID naproxen 250 MG tablet 250 - 500 mg PO Q8H PRN PRN (Reason: Mild Pain (1-3)) Qty: 60 0RF docusate sodium [DOK] 100 MG capsule 100 mg PO BID Qty: 30 0RF simethicone [Mi-Acid Gas Relief(simethicon)] 80 MG tablet 80 mg PO HS PRN (Reason: Indigestion/stomach pain) Qty: 30 0RF Primary Care Provider: Roque Lozano Referrals: Roque Lozano MD [Primary Care Provider] -
[2022-02-04 18:21] LABS: Mucous, Urine 0 SEEN /hpf (<or=2+); Red Blood Cells-Urine 0 SEEN /hpf (0-5)
[2022-02-04 18:22] LABS: Color, Urine Yellow (Yellow); Glucose, Dipstick Normal (Normal); Ketone-Dipstick 5 mg/dl (Negative); Leukocyte Esterase-Dipstick 100 /ul (Negative); Nitrite-Dipstick Negative (Negative); Occult Blood-Urine 25 /ul (Negative); Protein-Dipstick 30 mg/dl (Negative); Specific Gravity, Urine 1.025 (1.002-1.030); Urine Bilirubin Dipstick Negative (Negative); Urine Clarity Clear (Clear); Urine Urobilinogen Normal (Normal)
[2022-02-04 18:23] LABS: Absolute Lymphocyte Count 3.11 X10^3/uL (0.83-4.51); Absolute Neutrophil Count 9.8 X10^3/uL (2.0-7.7); Basophil# 0.03 X10^3/uL; Basophil% 0.2 % (0-1); Eosinophil# 0.06 X10^3/uL; Eosinophils% 0.4 % (0-5); Hematocrit 43.9 % (37-47); Hemoglobin 14.4 g/dL (12.0-15.0); Lymphocyte # 3.11 X10^3/ul (0.83-4.51); Lymphocyte % 22.6 % (19-41); Mean Corp Hgb Conc 32.8 g/dL (32-36); Mean Corpuscular Hgb 26.9 pg (27.0-32.0); Mean Corpuscular Volume 82.1 fL (81-99); Mean Platelet Vol. 8.4 fl (6.2-12.0); Monocyte# 0.69 X10^3/uL; NRBC Flagged by Analyzer 0 % (0-5); Neutrophil # 9.82 X10^3/uL (2.7-7.7); Neutrophil % 71.3 % (47-70); Platelet Count 378 K/mm3 (150-450); RBC Distribution Width CV 13.2 % (11.6-14.6); RBC Distribution Width SD 39.1 fl (35.1-43.9); Red Blood Count 5.35 M/mm3 (4.2-5.4); White Blood Count 13.8 K/mm3 (4.4-11.0)
[2022-02-04] MEDS: Ondansetron 4 MG/2 ML Vial IV (18:23)
[2022-02-04] MEDS: Morphine 4 MG/ML Syringe IV (18:25)
[2022-02-04 18:35] LABS: Bacteria 2+ /hpf (None Seen); Squamous Epithelial Cells - UA 0-5 SEEN /hpf (5-10); White Blood Cells 5-10 SEEN /hpf (0-5)
[2022-02-04 18:38] LABS: Internal QC Validated? YES +Cl - CLEAR BKGD; Pregnancy, Serum, hCG Quali. NEGATIVE Negative
[2022-02-04 18:43] LABS: AST(SGOT) 25 U/L (15-37); Alanine Aminotransfer ALT/SGPT 43 U/L (13-56); Albumin, Serum 3.8 g/dL (3.2-5.0); Alkaline Phosphatase 60 U/L (45-117); Anion Gap 4 (5-15); BUN 10 mg/dL (7-18); BUN/Creat Ratio 13.2 RATIO (10-20); Calcium,Total 9.3 mg/dL (8.5-10.1); Chloride 107 mmol/L (98-107); Creatinine, Serum 0.76 mg/dL (0.55-1.02); EST Glomerular Filtration Rate 95 mL/min (>60); Est Glom Filt Rate - Afr Amer 115 mL/min (>60); Estimated Creatinine Clearance 77.75 ml/min; Globulin 3.9 g/dL (2.2-4.2); Glucose 96 mg/dL (74-106); Lipase 94 U/L (73-393); Potassium 3.7 mmol/L (3.5-5.1); Protein, Total 7.7 g/dL (6.4-8.2); Sodium Level 138 mmol/L (136-145)
--- NOTE | 2022-02-04 19:18 | CT_ITS ---
STUDY: CT ABDOMEN AND PELVIS WITH CONTRAST REASON FOR EXAM: Female, 31 years old. Abdominal pain RADIATION DOSAGE (If Supplied By Facility): CTDIvol = ( 12.98 ) mGy, DLP = ( 769.37 ) mGycm TECHNIQUE: Transaxial images were obtained from the dome of the diaphragm to the symphysis pubis without oral contrast. IV 100mL Isovue-300 was administered. Sagittal and coronal images were reconstructed. Individualized dose optimization techniques were used for this CT. COMPARISON: 10/29/2016 FINDINGS: The visualized lung bases are unremarkable. The visualized portions of the heart are within normal limits. Normal liver. Normal gallbladder and extrahepatic biliary system. Normal spleen. Normal pancreas. Normal bilateral adrenal glands. Normal right kidney. Normal left kidney. Normal visualized stomach. Distal small bowel dilation with air-fluid levels and distal THICKENING and hyperenhancement. Transition point candidate in the right lower abdominal quadrant (series 2, image 65; series 601, image 36). Question adhesion at this point to the proximal remaining large bowel. The proximal small bowel is decompressed. Redemonstration of right hemicolectomy. Normal abdominal aorta. Normal inferior vena cava. Normal retroperitoneum. Normal urinary bladder. Normal visualized uterus. Normal abdominal wall. Normal thoracolumbar vertebral alignment. CT/Abdomen/Pelvis W IV Cont ONLY IMPRESSION: Small bowel obstruction with likely transition point in the right lower quadrant. Electronically Signed: Jose Williamosn MD at 20:10 EST ,
[2022-02-04] MEDS: 0.9% Normal Saline 1,000 ML 150 ML IV (19:43)
[2022-02-04] MEDS: proMETHazine 25 MG/ML Syringe 12.5 MG IM (20:18)
[2022-02-04 20:21] VITALS: BP 117/78; PULSE 65; RESP 14; O2SAT 99
[2022-02-04 22:00] VITALS: RESP 14
[2022-02-05] VITALS (10 sets, daily range): BP systolic 95–118; BP diastolic 52–65; PULSE 70–86; RESP 14–20; TEMP 36.4–37.1; O2SAT 96–100; BMI 26.9
[2022-02-05] MEDS: 0.9% Normal Saline 1,000 ML 150 ML IV ×3 (06:12→16:48)
--- NOTE | 2022-02-05 06:59 | ED.RN ---
PT had BM. Stated medium amount, mostly water.
[2022-02-05] MEDS: Morphine 4 MG/ML Syringe IV ×2 (11:52→20:17)
[2022-02-05] MEDS: Ondansetron 4 MG/2 ML Vial IM (11:52)
--- NOTE | 2022-02-05 12:40 | NURSING ---
CALLED [facility] FOR AN UPDATE AND WAS TOLD BY THEIR TRANSFER LINE WE SHOULD ADMIT HERE BECAUSE THEY ARE AT CRITIC LEVELS AND IT WILL BE AWHILE BEFORE A BED IS READY.
[2022-02-05] MEDS: morphine 8 MG/ML Syringe 6 MG IV (17:15)
--- NOTE | 2022-02-05 17:47 | PCM.HP.STD ---
HPI - General HPI Narrative ALY GUY, is a 31 F who presents to the hospital with abdominal pain. She has a history of Crohn's disease and has had multiple previous abdominal surgeries apparently having a third of her bowel removed. She had some nausea and vomiting as well as not having had a bowel movement in approximately 36 hours prior to presentation to the ED. CT of the abdomen demonstrated a transition point in the right abdomen. Surgery felt that she was to surgically complicated to manage at this facility and they recommended transfer to a tertiary care center, her surgeon is at the [facility] however there are no beds and she has been in the ER for over 30 hours. [facility] Medical History (Updated 02/05/22 @ 17:[address] Scott Garcia MD) Crohn's disease Home Medications adalimumab 40 mg/0.8 mL subcutaneous syringe kit (Humira) 40 mg SQ Q14D crohns 03/19/16 [History Last Taken 03/21/18 40 mg] venlafaxine 75 mg capsule,extended release 24 hr 75 mg PO DAILY 02/05/22 [History Last Taken Unknown] Allergy/AdvReac Type Severity Reaction Status Date / Time No Known Allergies Allergy Verified 02/04/22 17:52 adopted Surgical History (Updated 02/04/22 @ 18:[address] Henrietta Samayoa MD) History of bowel resection Social History Smoking Status: Current every day smoker tobacco type: e-cigarettes ROS Constitutional Constitutional: Denies chills, fatigue, fever(s) or malaise Eyes Eyes: Denies blurry vision ENT HEENT: Denies headache(s) or nasal discharge Cardiovascular Cardiovascular: Denies chest pain, dyspnea on exertion or syncope Respiratory/Chest Respiratory/Chest: Denies cough, shortness of breath at rest or shortness of breath with exertion Gastrointestinal Gastrointestinal: Reports abdominal pain, nausea and vomiting; Denies constipation or diarrhea Genitourinary Genitourinary: Denies dysuria Neurologic Neurologic: Denies focal weakness, numbness or tremor(s) Psychiatric Psychiatric: Denies anxiety or depression Vital Signs Vital Signs Vital Signs: 02/04/22 17:52 02/04/22 20:21 02/04/22 22:00 Temperature 97.5 F L Temperature Source Temporal Pulse Rate 122 H 65 Respiratory Rate 18 14 14 Blood Pressure 161/95 H 117/78 Blood Pressure Mean 117 91 Pulse Ox 96 99 Oxygen Delivery Method Room Air Room Air Room Air 02/05/22 00:00 02/05/22 02:00 02/05/22 04:00 Temperature Temperature Source Pulse Rate Respiratory Rate 15 15 14 Blood Pressure Blood Pressure Mean Pulse Ox Oxygen Delivery Method Room Air Room Air Room Air 02/05/22 06:00 02/05/22 08:48 02/05/22 11:55 Temperature 98.7 F Temperature Source Oral Pulse Rate 80 76 86 Respiratory Rate 20 H 14 18 Blood Pressure 112/57 L 118/65 95/55 L Blood Pressure Mean 75 82 68 Pulse Ox 99 99 98 Oxygen Delivery Method Room Air Room Air Room Air 02/05/22 13:37 02/05/22 17:16 02/05/22 17:38 Temperature 97.6 F L 98.2 F Temperature Source Temporal Temporal Pulse Rate 70 84 74 Respiratory Rate 16 16 17 Blood Pressure 108/62 106/52 L 106/63 Blood Pressure Mean 77 70 77 Pulse Ox 100 96 97 Oxygen Delivery Method Room Air Room Air Room Air Weight Weight: 162 lb Body Mass Index (BMI) 31.6 Physical Exam Narrative General: Alert, Oriented x3, Cooperative, No apparent distress HEENT: Atraumatic, PERRLA, EOMI, Normocephalic Oral: Moist Mucosa Neck: Supple, No JVD Lungs: Clear to auscultation, Normal air movement, No rhonchi, No wheeze, No rales Cardiovascular: Regular rate, Regular Rhythm, Normal S1, Normal S2, No murmurs Abdomen: Soft, Non Tender, Non-Distended, No Hepato-splenomegaly Extremities: No edema, Capillary Refill Less than 3 Seconds Skin: No rashes, No breakdown Musculoskeletal: No Tenderness to Palpation of Joints or Extremities Neurological: Cranial nerves II-XII grossly intact, Motor Exam 5/5 strength throughout, Sensory exam intact to light touch and pain Psych/Mental Status: Normal Affect, Appropriate Results Lab / Micro Data Result Diagrams: 02/04/22 18:15 02/04/22 18:15 Labs: Laboratory Results - last 24 hr 02/04/22 18:15: WBC 13.8 H, RBC 5.35, Hgb 14.4, Hct 43.9, MCV 82.1, MCH 26.9 L, MCHC 32.8, RDW Std Deviation 39.1, RDW Coeff of Ila 13.2, Plt Count 378, MPV 8.4, Immature Gran % (Auto) 0.500, Neut % (Auto) 71.3 H, Lymph % (Auto) 22.6, [place] % (Auto) 5.0, Eos % (Auto) 0.4, Baso % (Auto) 0.2, Absolute Neuts (auto) 9.8 H, Absolute Lymphs (auto) 3.11, Nucleated RBC % 0 02/04/22 18:15: Sodium 138, Potassium 3.7, Chloride 107, Carbon Dioxide 27.0, Anion Gap 4 L, BUN 10, Creatinine 0.76, Estim Creat Clear Calc 77.75, Est GFR (MDRD) Af Amer 115, Est GFR (MDRD) Non-Af 95, BUN/Creatinine Ratio 13.2, Glucose 96, Calcium 9.3, Total Bilirubin 0.80, Direct Bilirubin 0.20, AST 25, ALT 43, Alkaline Phosphatase 60, Total Protein 7.7, Albumin 3.8, Globulin 3.9, Lipase 94 02/04/22 18:15: Serum , Qual NEGATIVE 02/04/22 18:15: Urine Color Yellow, Urine Clarity Clear, Urine pH 5.0, Ur Specific [place] 1.025, Urine Protein 30 H, Urine Glucose (UA) Normal, Urine Ketones 5 H, Urine Occult Blood 25 H, Urine Nitrite Negative, Urine Bilirubin Negative, Urine Urobilinogen Normal, Ur Leukocyte Esterase 100 H, Urine RBC 0 SEEN, Urine WBC 5-10 SEEN, Ur Squamous Epith Cells 0-5 SEEN, Urine Bacteria 2+, Urine Mucus 0 SEEN Radiology Impression Abdomen/Pelvis CT 02/04/22 19:18 IMPRESSION: Small bowel obstruction with likely transition point in the right lower quadrant. Electronically Signed: Jose Williamson MD at 20:10 EST , Assessment & Plan Assessment/Plan (1) SBO (small bowel obstruction): PLAN: Plan 1. SBO/history of Crohn's status post multiple resections ? We will consult general surgery ? On my review of the CT scan there is no obvious fat stranding or free fluid so I think that this is purely a small bowel obstruction not a Crohn's flare ? Place an NG tube to LIWS ? N.p.o. ? Pain meds ? IV fluids ? Awaiting transfer to [facility] DVT: Ambulation Charges/Coding Visit Charges Inpatient E&M: 82781 Init Hosp L2
--- NOTE | 2022-02-05 18:35 | RAD_ITS ---
STUDY: X-RAY - ABDOMEN/PELVIS REASON FOR EXAM: Female, 31 years old. NG Insertion TECHNIQUE: Single AP view of the abdomen / pelvis. COMPARISON: None. FINDINGS: Nasogastric tube with the tip in the midline likely in the antrum of the stomach. There is an unremarkable bowel gas pattern. The visualized liver, spleen and kidneys are grossly normal in size and morphology. Normal soft tissue structures. Normal visualized osseous structures. RAD/Abdomen Single View (Portable) IMPRESSION: 1. Nasogastric tube with the tip in the midline likely in the antrum the stomach. 2. No bowel obstruction. Electronically Signed: Palmer Denton MD at 19:44 EST ,
[2022-02-05] MEDS: 0.9% Normal Saline 1,000 ML 100 ML IV (19:48)
[2022-02-05] MEDS: BENZOCAINE/MENTHOL 1 LOZENGE MUCOUS MEM (22:34)
[2022-02-06] MEDS: 0.9% Saline Lock 10 ML Syringe IV ×5 (01:45→19:06)
[2022-02-06] MEDS: BENZOCAINE/MENTHOL 1 LOZENGE MUCOUS MEM ×5 (01:45→17:58)
[2022-02-06] MEDS: Morphine 4 MG/ML Syringe IV ×4 (02:23→19:06)
[2022-02-06] MEDS: Ondansetron 4 MG/2 ML Vial IV ×3 (02:23→19:06)
[2022-02-06 02:29] VITALS: BP 106/57; PULSE 79; RESP 16; TEMP 36.7; O2SAT 96
[2022-02-06] MEDS: 0.9% Normal Saline 1,000 ML 100 ML IV (03:59)
[2022-02-06 06:00] LABS: Absolute Lymphocyte Count 2.39 X10^3/uL (0.83-4.51); Absolute Neutrophil Count 3.5 X10^3/uL (2.0-7.7); Basophil# 0.02 X10^3/uL; Basophil% 0.3 % (0-1); Eosinophil# 0.06 X10^3/uL; Eosinophils% 0.9 % (0-5); Hemoglobin 11.8 g/dL (12.0-15.0); Lymphocyte # 2.39 X10^3/ul (0.83-4.51); Lymphocyte % 37.6 % (19-41); Mean Corp Hgb Conc 32.8 g/dL (32-36); Mean Corpuscular Hgb 28.2 pg (27.0-32.0); Mean Corpuscular Volume 86.1 fL (81-99); Mean Platelet Vol. 8.7 fl (6.2-12.0); Monocyte# 0.41 X10^3/uL; Monocyte% 6.5 % (0-10); NRBC Flagged by Analyzer 0 % (0-5); Neutrophil # 3.45 X10^3/uL (2.7-7.7); Neutrophil % 54.4 % (47-70); Platelet Count 226 K/mm3 (150-450); RBC Distribution Width SD 40.9 fl (35.1-43.9); Red Blood Count 4.18 M/mm3 (4.2-5.4); White Blood Count 6.4 K/mm3 (4.4-11.0)
[2022-02-06 06:44] LABS: Anion Gap 6 (5-15); BUN 7 mg/dL (7-18); Calcium,Total 7.7 mg/dL (8.5-10.1); Chloride 114 mmol/L (98-107); Creatinine, Serum 0.54 mg/dL (0.55-1.02); EST Glomerular Filtration Rate 141 mL/min (>60); Est Glom Filt Rate - Afr Amer 171 mL/min (>60); Estimated Creatinine Clearance 137.08 ml/min; Glucose 66 mg/dL (74-106); Potassium 3.4 mmol/L (3.5-5.1); Sodium Level 141 mmol/L (136-145)
[2022-02-06] MEDS: Dextrose 5%/0.9% NaCl 1,000 ML 100 ML IV (07:39)
[2022-02-06 08:45] VITALS: BP 120/61; PULSE 82; RESP 18; TEMP 37.2; O2SAT 97
--- NOTE | 2022-02-06 08:59 | PN.HOSP_ITS ---
Subjective Subjective Doing well, NG tube is in place awaiting transfer to [facility] no issues overnight. Objective Data Objective Data Vital Signs: Vital Signs Temp Pulse Resp BP Pulse Ox O2 Del Method 98.9 F 82 18 120/61 97 Room Air 02/06/22 08:45 02/06/22 08:45 02/06/22 08:45 02/06/22 08:45 02/06/22 08:45 02/06/22 08:45 Oxygen Delivery Method Room Air Weight: 162 lb Body Mass Index (BMI) 26.9 Intake & Output: Intake and Output for Last 24 Hours 02/05/22 02/06/22 02/07/22 03:59 03:59 03:59 Intake Total 1500 / 1500 2588.33 / 2588.33 378.33 / 378.33 Balance 1500 / 1500 2588.33 / 2588.33 378.33 / 378.33 Lab / Micro Data Result Diagrams: 02/06/22 05:21 02/06/22 05:21 Labs: Laboratory Results - last 24 hr 02/06/22 05:21: WBC 6.4, RBC 4.18 L, Hgb 11.8 L, Hct 36.0 L, MCV 86.1, MCH 28.2, MCHC 32.8, RDW Std Deviation 40.9, RDW Coeff of Ila 13.0, Plt Count 226, MPV 8.7, Immature Gran % (Auto) 0.300, Neut % (Auto) 54.4, Lymph % (Auto) 37.6, Price % (Auto) 6.5, Eos % (Auto) 0.9, Baso % (Auto) 0.3, Absolute Neuts (auto) 3.5, Absolute Lymphs (auto) 2.39, Nucleated RBC % 0 02/06/22 05:21: Sodium 141, Potassium 3.4 L, Chloride 114 H, Carbon Dioxide 21.0, Anion Gap 6, BUN 7, Creatinine 0.54 L, Estim Creat Clear Calc 137.08, Est GFR (MDRD) Af Amer 171, Est GFR (MDRD) Non-Af 141, BUN/Creatinine Ratio 13.0, Glucose 66 L, Calcium 7.7 L Radiography Diagnostic Testing: Radiology Impression KUB X-Ray 02/05/22 18:35 IMPRESSION: 1. Nasogastric tube with the tip in the midline likely in the antrum the stomach. 2. No bowel obstruction. Electronically Signed: Palmer Denton MD at 19:44 EST , Physical Exam Narrative General: Alert, Oriented x3, Cooperative, No apparent distress HEENT: Atraumatic, PERRLA, EOMI, Normocephalic, NG tube in place Oral: Moist Mucosa Neck: Supple, No JVD Lungs: Clear to auscultation, Normal air movement, No rhonchi, No wheeze, No rales Cardiovascular: Regular rate, Regular Rhythm, Normal S1, Normal S2, No murmurs Abdomen: Soft, Non Tender, Non-Distended, No Hepato-splenomegaly Extremities: No edema, Capillary Refill Less than 3 Seconds Skin: No rashes, No breakdown Musculoskeletal: No Tenderness to Palpation of Joints or Extremities Neurological: Cranial nerves II-XII grossly intact, Motor Exam 5/5 strength throughout, Sensory exam intact to light touch and pain Psych/Mental Status: Normal Affect, Appropriate Assessment & Plan Assessment/Plan (1) SBO (small bowel obstruction): PLAN: Plan 1. SBO/history of Crohn's status post multiple resections ? We will consult general surgery, appreciate their assistance ? On my review of the CT scan there is no obvious fat stranding or free fluid so I think that this is purely a small bowel obstruction not a Crohn's flare ? Place an NG tube to LIWS, Chloraseptic spray or lozenges for sore throat if necessary ? N.p.o. ? Pain meds ? IV fluids ? Awaiting transfer to [facility] DVT: Ambulation Charges/Coding Visit Charges Inpatient E&M: 99708 Subs Hosp L2
--- NOTE | 2022-02-06 10:45 | CON.PCM.SX_ITS ---
Assessment & Plan Assessment/Plan (1) SBO (small bowel obstruction): PLAN: see below PLAN: Plan Patient still with right sided abdominal pain and no flatus since admission, awaiting transfer to [facility]. I have reviewed the CT scan. Still need to maintain NG tube decompression as patient has not had flatus at present, patient is not in extremis - emergency surgery not required at this point in time However, if patient is not able to be transferred, then may have to proceed with surgery here. I have counseled patient that there are risks of surgery, including but not limited to: infection, bleeding, injury to any bowel/bladder, injury to any blood vessels/nerves, scar tissue, injury to any intraabdominal organs, injury to any internal organs such as liver/spleen, resultant intestinal fistula, short gut syndrome, intraabdominal bleeding/infection/abscess, incisional hernias, w ound infections, etc. - she understands. Though the KUB reads no bowel obstruction - this does not fit with clinical picture and the entire abdomen is not demonstrated in the KUB, therefore this is not an appropriate diagnosis. Continue present therapy. HPI Consult Data Date of Consult: 02/06/22 HPI Narrative Reason for Consultation: abdominal pain HPI Narrative: ALY GUY, is a 31 F who presents with right sided abdominal pain and bowel obstruction She states that she has had abdominal pain for at least three days and it is right sided. She has had previous surgery for her Crohn's disease. She states that she last passed flatus on Monday and that she last had a bowel movement on . She was to be transferred to [facility], but awaiting bed availability. I was asked by Dr. Matthew Garcia for consultation of this patient. [facility] Medical History Crohn's disease Home Medications adalimumab 40 mg/0.8 mL subcutaneous syringe kit (Humira) 40 mg SQ Q14D crohns 03/19/16 [History Last Taken 01/28/22] venlafaxine 75 mg capsule,extended release 24 hr 75 mg PO DAILY mood 02/05/22 [History Last Taken 02/04/22] Allergy/AdvReac Type Severity Reaction Status Date / Time No Known Allergies Allergy Verified 02/05/22 19:42 Family History adopted Surgical History History of bowel resection Social History Smoking Status: Current every day smoker tobacco type: e-cigarettes ROS Constitutional Constitutional: Denies chills or fever(s) Eyes Eyes: Denies loss of central vision Cardiovascular Cardiovascular: Denies chest pain at rest Respiratory/Chest Respiratory/Chest: Denies productive cough or shortness of breath at rest Gastrointestinal Gastrointestinal: Reports abdominal pain Genitourinary Genitourinary: Denies dysuria or hematuria Musculoskeletal Musculoskeletal: Denies abnormal gait Integumentary Integumentary: Denies jaundice Neurologic Neurologic: Denies abnormal gait Physical Exam Const alert and oriented x3 General Appearance: cooperative HEENT head/scalp atraumatic Eyes conjunctivae normal Neck supple Resp normal respiratory effort Effort and Inspection: able to speak in complete sentences Cardio Rate: regular rate GI GI Narrative: abdomen is soft but tender in the right side with rebound tenderness Extremity no calf tenderness Skin no jaundice Medical Records Data Attestation: I reviewed the patient's medical records Lab / Micro Data Attestation: I reviewed the patient's lab results. Result Diagrams: 02/06/22 05:21 02/06/22 05:21 Labs: Laboratory Results - last 24 hr 02/06/22 05:21: WBC 6.4, RBC 4.18 L, Hgb 11.8 L, Hct 36.0 L, MCV 86.1, MCH 28.2, MCHC 32.8, RDW Std Deviation 40.9, RDW Coeff of Ila 13.0, Plt Count 226, MPV 8.7, Immature Gran % (Auto) 0.300, Neut % (Auto) 54.4, Lymph % (Auto) 37.6, [place] % (Auto) 6.5, Eos % (Auto) 0.9, Baso % (Auto) 0.3, Absolute Neuts (auto) 3.5, Absolute Lymphs (auto) 2.39, Nucleated RBC % 0 02/06/22 05:21: Sodium 141, Potassium 3.4 L, Chloride 114 H, Carbon Dioxide 21.0, Anion Gap 6, BUN 7, Creatinine 0.54 L, Estim Creat Clear Calc 137.08, Est GFR (MDRD) Af Amer 171, Est GFR (MDRD) Non-Af 141, BUN/Creatinine Ratio 13.0, Glucose 66 L, Calcium 7.7 L Radiology Impression KUB X-Ray 02/05/22 18:35 IMPRESSION: 1. Nasogastric tube with the tip in the midline likely in the antrum the stomach. 2. No bowel obstruction. Electronically Signed: Palmer Denton MD at 19:44 EST ,
[2022-02-06] MEDS: Phenol/Sodium Phenolate 180ML 3 SPRAY MUCOUS MEM (11:41)
[2022-02-06 14:45] VITALS: BP 106/69; PULSE 75; RESP 18; TEMP 36.9; O2SAT 98
--- NOTE | 2022-02-06 17:16 | NURSING ---
[facility] called with bed assignment, H51 bed 11 , nurse to nurse report,
--- NOTE | 2022-02-06 17:19 | PCM.DC.SUM ---
Providers Date of Admission: 02/05/22 Primary Care Physician: Dr. Roque Lozano MD Consultations 02/05/22 19:34 Consult: General Surgery Routine Consulting Provider: Nataliia Trotter Reason for Consult: SBO EMERGENT Consult: No MD Notified: Yes Date Notified: 02/05/22 Time Notified: 17:46 Method of Notification: ED Physician Initiated Reason For Visit: SBO Diagnosis Discharge Diagnosis (1) SBO (small bowel obstruction): Status: Acute Code(s): K56.609 - Unspecified intestinal obstruction, unspecified as to partial versus complete obstruction Plan 1. SBO/history of Crohn's status post multiple resections ? We will consult general surgery, appreciate their assistance ? On my review of the CT scan there is no obvious fat stranding or free fluid so I think that this is purely a small bowel obstruction not a Crohn's flare ? Place an NG tube to LIWS, Chloraseptic spray or lozenges for sore throat if necessary ? N.p.o. ? Pain meds ? IV fluids ? Awaiting transfer to [facility] DVT: Ambulation Medications at Discharge Home Medications adalimumab 40 mg/0.8 mL subcutaneous syringe kit (Humira) 40 mg SQ Q14D crohns 03/19/16 venlafaxine 75 mg capsule,extended release 24 hr 75 mg PO DAILY mood 02/05/22 Hospital Course Operations None Procedures None Summary of Care Provided Minutes Spent on Discharge: 38 Hospital Course: Per HPI: ALY GUY, is a 31 F who presents to the hospital with abdominal pain.? She has a history of Crohn's disease and has had multiple previous abdominal surgeries apparently having a third of her bowel removed.? She had some nausea and vomiting as well as not having had a bowel movement in approximately 36 hours prior to presentation to the ED.? CT of the abdomen demonstrated a transition point in the right abdomen.? Surgery felt that she was to surgically complicated to manage at this facility and they recommended transfer to a tertiary care center, her surgeon is at the [facility] however there are no beds and she has been in the ER for over 30 hours. Hospital Course: 1.? SBO/history of Crohn's status post multiple [id number] female with a history of Crohn's disease presents to the hospital with a small bowel obstruction. She started having some nausea and vomiting and it happened faster than her other small bowel obstructions had occurred. She was in the ER for over a day pending transfer to [facility] so she was admitted to the medical surgical floor with a consult into general surgery. An NG tube was placed with minimal output but she was still having intermittent episodes of nausea and abdominal pain. General surgery was consulted in case intervention needed to happen. On day 2 of her admission she was accepted to the [facility] with a bed and so we will plan for discharge today. Of note appears of her n.p.o. she was started on D5 normal saline because of hypoglycemia on morning labs. Weight / BMI Weight Weight: 162 lb 0.001 oz Body Mass Index (BMI) 26.9 ABG / Lab / Microbiology Data Result Diagrams: 02/06/22 05:21 02/06/22 05:21 Laboratory: Laboratory Results - last 24 hr 02/06/22 05:21: WBC 6.4, RBC 4.18 L, Hgb 11.8 L, Hct 36.0 L, MCV 86.1, MCH 28.2, MCHC 32.8, RDW Std Deviation 40.9, RDW Coeff of Ila 13.0, Plt Count 226, MPV 8.7, Immature Gran % (Auto) 0.300, Neut % (Auto) 54.4, Lymph % (Auto) 37.6, [place] % (Auto) 6.5, Eos % (Auto) 0.9, Baso % (Auto) 0.3, Absolute Neuts (auto) 3.5, Absolute Lymphs (auto) 2.39, Nucleated RBC % 0 02/06/22 05:21: Sodium 141, Potassium 3.4 L, Chloride 114 H, Carbon Dioxide 21.0, Anion Gap 6, BUN 7, Creatinine 0.54 L, Estim Creat Clear Calc 137.08, Est GFR (MDRD) Af Amer 171, Est GFR (MDRD) Non-Af 141, BUN/Creatinine Ratio 13.0, Glucose 66 L, Calcium 7.7 L Radiography Diagnostic Testing: Radiology Impression KUB X-Ray 02/05/22 18:35 IMPRESSION: 1. Nasogastric tube with the tip in the midline likely in the antrum the stomach. 2. No bowel obstruction. Electronically Signed: Palmer Denton MD at 19:44 EST , Meaningful Use Info Meaningful Use Diagnoses (Choose all that apply): None applicable Discharge Plan Admission Admit Date/Time: 02/05/22 17:44 Attending Provider: Scott Garcia Primary Care Provider: Roque Lozano Consulting Providers: Nataliia Trotter Discharge Orders/Prescriptions Prescriptions: No Action Humira 40 MG/0.8 ML syringe kit 40 mg SQ Q14D Label Comments: CHRONS venlafaxine 75 mg capsule,extended release 24hr 75 mg PO DAILY Label Comments: TAKE 1 CAPSULE BY MOUTH ONCE DAILY Referrals / Follow Up: Roque Lozano MD [Primary Care Provider] - Disposition Discharge Orders: Discharge Patient (Routine); Ordered 02/06/22 Ordered By: Dr. Scott Garcia Charges/Coding Visit Charges Inpatient E&M: 05011 Disch Hosp
--- NOTE | 2022-02-06 17:35 | NURSING ---
Report called to [facility] to Maury BARR. [phone] H51 Bed 11.
== END 2022-02-06 19:21 | disposition short-term general hospital (02) | DRG 247 ==
LOC: ED 02-05 12:45 → MS3 02-05 18:26
PROVIDERS: Admitting Provider Family Medicine; Emergency Provider Emergency Medicine; PCP Family Medicine; Visit Provider Family Medicine
DX: K56.609 Unspecified intestinal obstruction, unspecified as to partial versus complete obstruction (principal); E16.2 Hypoglycemia, unspecified; K50.90 Crohn's disease, unspecified, without complications; F17.210 Nicotine dependence, cigarettes, uncomplicated
CPT/HCPCS: 36415; 74018; 74177; 80048; 80076; 81001; 83690; 84703; 85025; 99285; 99406; J7030; Q9967; A4216; J2405

== ENCOUNTER 2022-07-12 11:15 | Emergency (ER) | payer MEDICAID, SELFPAY ==
[2022-07-12 11:16] VITALS: BP 132/84; PULSE 81; RESP 16; TEMP 36.6; O2SAT 98; BMI 34.0
--- NOTE | 2022-07-12 12:05 | EKG12_ITS ---
Test Reason : DIZZINESS Blood Pressure : / mmHG Vent. Rate : 070 BPM Atrial Rate : 070 BPM P-R Int : 124 ms QRS Dur : 100 ms QT Int : 404 ms P-R-T Axes : 036 054 050 degrees QTc Int : 436 ms Normal sinus rhythm Normal ECG Confirmed by RICKY LOPEZ, BEATRIZ ([id number]), book or script editor ELIAS TRACY ([id number]) on 07/14/2022 9:36:28 AM Referred By: Confirmed By:BEATRIZ GARCÍA MD
--- NOTE | 2022-07-12 12:10 | EDS_ITS ---
HPI History of Present Illness Chief Complaint: Dizziness Detail of Chief Complaint: Back pain and dizziness Informant: patient Narrative Narrative: Patient states that about an hour ago she was standing at work when she noted some tightness in her lower back. She states this time went on pain continued and she started feel slightly dizzy and lightheaded. She left work and came to emergency room to have it checked out. She denies any falls or injuries. Patient does have a history of small bowel obstruction. She is an upcoming colonoscopy for dilation of some scar tissue. She states her last bowel movement was last evening. She does not have any urinary symptoms. [facility] Medical History Crohn's disease Home Medications adalimumab 40 mg/0.8 mL subcutaneous syringe kit (Humira) 40 mg SQ Q14D crohns 03/19/16 [History Last Taken 01/28/22] venlafaxine 75 mg capsule,extended release 24 hr 75 mg PO DAILY mood 02/05/22 [History Last Taken 02/04/22] lidocaine 5 % topical patch (Lidoderm) 1 patch topical DAILY #15 ea 07/12/22 [Rx Last Taken Unknown] naproxen 500 mg tablet (Naprosyn) 500 mg PO BID PRN pain #20 tabs 07/12/22 [Rx Last Taken Unknown] Allergy/AdvReac Type Severity Reaction Status Date / Time No Known Allergies Allergy Verified 07/12/22 11:18 Surgical History History of bowel resection Social History Smoking Status: Current every day smoker tobacco type: e-cigarettes ROS ROS ED Constitutional Constitutional ED: Denies chills or fever(s) Eyes Eyes: Denies discharge from eye(s) ENT ENT ED: Denies discharge from eye(s), rhinorrhea or sore throat Cardiovascular Cardiovascular: Denies chest pain Respiratory/Chest Respiratory/Chest: Denies cough or dyspnea Gastrointestinal Gastrointestinal: Denies abdominal pain, diarrhea, nausea or vomiting Genitourinary Genitourinary ED: Denies difficulty urinating or dysuria Musculoskeletal Musculoskeletal: Reports back pain; Denies extremity pain Integumentary Denies Abrasions or rash Neurologic Neurologic: Reports other Details: Dizziness ; Denies headache(s) or weakness Psychiatric Psychiatric: Denies anxiety or depression Allergic/Immunologic Allergic/Immunologic ED: Denies lip swelling or urticaria EXAM Physical Exam Const Vital Signs: 07/12/22 11:16 Temperature 97.8 F Temperature Source Temporal Pulse Rate 81 Respiratory Rate 16 Blood Pressure 132/84 H Blood Pressure Mean 100 Pulse Ox 98 Oxygen Delivery Method Room Air Positive well nourished and well developed General Appearance ED: well developed HEENT Reports normocephalic and head/scalp atraumatic Eyes PERRL and EOMs intact bilaterally Neck supple Chest Wall inspection of chest normal and palpation of chest normal Resp normal respiratory effort and clear to auscultation bilaterally Cardio regular rate and regular rhythm GI non-tender Auscultation: hypoactive bowel sounds Palpation: soft Back/Spine no CVA tenderness Back/Spine Narrative: Muscular tenderness in the left low lumbar paraspinal muscles. No overlying skin changes. Extremity normal to inspection Neuro oriented x3 and no sensory deficits noted Sensorium / Orientation: alert Motor Exam: strength 5/5 throughout Psych mental status grossly normal Skin no rashes or lesions noted MDM MDM MDM Narrative Medical decision making narrative: Patient placed on property assessment monitor. EKG obtained given the patient's dizziness. Labwork obtained to evaluate for leukocytosis, anemia, and electrolyte derangement. Urinalysis obtained to evaluate for infection/hematuria. Patient given IV fluids. Tylenol and Lidoderm patch placed. Lab Data Attestation: I reviewed the patient's lab results. Labs: Laboratory Results - last 24 hr 07/12/22 07/12/22 07/12/22 12:15 12:15 12:15 WBC 8.5 RBC 5.00 Hgb 13.8 Hct 41.3 MCV 82.6 MCH 27.6 MCHC 33.4 RDW Std Deviation 39.3 RDW Coeff of Ila 13.2 Plt Count 295 MPV 8.6 Immature Gran % (Auto) 0.400 Neut % (Auto) 63.7 Lymph % (Auto) 29.5 [place] % (Auto) 5.2 Eos % (Auto) 0.7 Baso % (Auto) 0.5 Absolute Neuts (auto) 5.4 Absolute Lymphs (auto) 2.51 Nucleated RBC % 0 Sodium 139 Potassium 3.9 Chloride 108 H Carbon Dioxide 27.0 Anion Gap 4 L BUN 9 Creatinine 0.70 Estim Creat Clear Calc 141.69 Est GFR (MDRD) Af Amer 126 Est GFR (MDRD) Non-Af 104 BUN/Creatinine Ratio 12.9 Glucose 92 Calcium 8.9 Serum , Qual NEGATIVE Urine Color Urine Clarity Urine pH Ur Specific [place] Urine Protein Urine Glucose (UA) Urine Ketones Urine Occult Blood Urine Nitrite Urine Bilirubin Urine Urobilinogen Ur Leukocyte Esterase Urine RBC Urine WBC Ur Squamous Epith Cells Urine Bacteria Urine Mucus 07/12/22 12:25 WBC RBC Hgb Hct MCV MCH MCHC RDW Std Deviation RDW Coeff of Ila Plt Count MPV Immature Gran % (Auto) Neut % (Auto) Lymph % (Auto) [place] % (Auto) Eos % (Auto) Baso % (Auto) Absolute Neuts (auto) Absolute Lymphs (auto) Nucleated RBC % Sodium Potassium Chloride Carbon Dioxide Anion Gap BUN Creatinine Estim Creat Clear Calc Est GFR (MDRD) Af Amer Est GFR (MDRD) Non-Af BUN/Creatinine Ratio Glucose Calcium Serum , Qual Urine Color Yellow Urine Clarity Clear Urine pH 6.5 Ur Specific [place] 1.010 Urine Protein Negative Urine Glucose (UA) Normal Urine Ketones Negative Urine Occult Blood 10 H Urine Nitrite Negative Urine Bilirubin Negative Urine Urobilinogen Normal Ur Leukocyte Esterase 100 H Urine RBC 0 SEEN Urine WBC 0-5 SEEN Ur Squamous Epith Cells 0-5 SEEN Urine Bacteria 0 SEEN Urine Mucus 0 SEEN EKG Initial EKG: Attestation: I personally reviewed and interpreted this EKG as follows: Interpretation: Sinus Rhythm (Sinus at 70 with no acute ischemia. Normal intervals.) Treatment and Re-Evaluation :: CBC and chemistry studies are unremarkable. test is negative. Urinalysis reveals no evidence of infection. No ketones noted. On repeat evaluation she is sleeping comfortably. Pain is improved. I believe she likely has musculoskeletal back pain that triggered vagal response and hence her lightheadedness and dizziness. The symptoms are improved at this time. She begin a prescription for Naprosyn and Lidoderm patches. Discharge Plan Triage Chief Complaint: Dizziness ED Provider: Henrietta Samayoa Dx/Rx/DC Orders Clinical Impression: Lumbar strain, Vasovagal near syncope Instructions: ED Back Sprain/Strain, ED Near-Fainting- Vagal Reaction Prescriptions: New naproxen [Naprosyn] 500 mg tablet 500 mg PO BID PRN (Reason: pain) Qty: 20 0RF lidocaine [Lidoderm] 5 % adhesive patch,medicated 1 patch topical DAILY Qty: 15 0RF Rx Instructions: leave on most painful area for up to 12 hrs No Action Humira 40 MG/0.8 ML syringe kit 40 mg SQ Q14D Label Comments: CHRONS venlafaxine 75 mg capsule,extended release 24hr 75 mg PO DAILY Label Comments: TAKE 1 CAPSULE BY MOUTH ONCE DAILY Primary Care Provider: Roque Lozano Referrals: Roque Lozano MD [Primary Care Provider] - 1 Week if not improving Disposition Disposition: Home, Self Care
[2022-07-12] MEDS: Acetaminophen 500 MG Tablet 1000 MG PO (12:21)
[2022-07-12] MEDS: Lidocaine 5% Patch 1 PATCH TOPICAL (12:22)
[2022-07-12 12:27] LABS: Absolute Lymphocyte Count 2.51 X10^3/uL (0.83-4.51); Absolute Neutrophil Count 5.4 X10^3/uL (2.0-7.7); Basophil# 0.04 X10^3/uL; Basophil% 0.5 % (0-1); Eosinophil# 0.06 X10^3/uL; Eosinophils% 0.7 % (0-5); Hematocrit 41.3 % (37-47); Hemoglobin 13.8 g/dL (12.0-15.0); Lymphocyte # 2.51 X10^3/ul (0.83-4.51); Lymphocyte % 29.5 % (19-41); Mean Corp Hgb Conc 33.4 g/dL (32-36); Mean Corpuscular Hgb 27.6 pg (27.0-32.0); Mean Corpuscular Volume 82.6 fL (81-99); Mean Platelet Vol. 8.6 fl (6.2-12.0); Monocyte# 0.44 X10^3/uL; Monocyte% 5.2 % (0-10); NRBC Flagged by Analyzer 0 % (0-5); Neutrophil # 5.43 X10^3/uL (2.7-7.7); Neutrophil % 63.7 % (47-70); Platelet Count 295 K/mm3 (150-450); RBC Distribution Width CV 13.2 % (11.6-14.6); RBC Distribution Width SD 39.3 fl (35.1-43.9); White Blood Count 8.5 K/mm3 (4.4-11.0)
[2022-07-12 12:39] LABS: Bacteria 0 SEEN /hpf (None Seen); Mucous, Urine 0 SEEN /hpf (<or=2+); Red Blood Cells-Urine 0 SEEN /hpf (0-5)
[2022-07-12 12:40] LABS: Color, Urine Yellow (Yellow); Glucose, Dipstick Normal (Normal); Ketone-Dipstick Negative (Negative); Leukocyte Esterase-Dipstick 100 /ul (Negative); Nitrite-Dipstick Negative (Negative); Occult Blood-Urine 10 /ul (Negative); Protein-Dipstick Negative (Negative); Urine Bilirubin Dipstick Negative (Negative); Urine Clarity Clear (Clear); Urine Urobilinogen Normal (Normal); Urine pH 6.5 (5.0 - 8.0)
[2022-07-12 12:42] LABS: Anion Gap 4 (5-15); BUN 9 mg/dL (7-18); BUN/Creat Ratio 12.9 RATIO (10-20); Calcium,Total 8.9 mg/dL (8.5-10.1); Chloride 108 mmol/L (98-107); EST Glomerular Filtration Rate 104 mL/min (>60); Est Glom Filt Rate - Afr Amer 126 mL/min (>60); Estimated Creatinine Clearance 141.69 ml/min; Glucose 92 mg/dL (74-106); Potassium 3.9 mmol/L (3.5-5.1); Sodium Level 139 mmol/L (136-145)
[2022-07-12 12:54] LABS: Internal QC Validated? YES +Cl - CLEAR BKGD
[2022-07-12 12:54] LABS: Squamous Epithelial Cells - UA 0-5 SEEN /hpf (5-10); White Blood Cells 0-5 SEEN /hpf (0-5)
[2022-07-12 12:55] LABS: Pregnancy, Serum, hCG Quali. NEGATIVE Negative
[2022-07-12 13:29] VITALS: BP 125/74; PULSE 68; RESP 16; O2SAT 97
== END 2022-07-12 13:47 | disposition home or self-care (01) ==
PROVIDERS: Emergency Provider Emergency Medicine; PCP Family Medicine; Visit Provider Emergency Medicine
DX: S39.012A Strain of muscle, fascia and tendon of lower back, initial encounter (principal); R55 Syncope and collapse; F17.210 Nicotine dependence, cigarettes, uncomplicated; Z79.899 Other long term (current) drug therapy; X58.XXXA Exposure to other specified factors, initial encounter
CPT/HCPCS: 80048; 81001; 84703; 85025; 93005; 99284; A4216

== ENCOUNTER 2022-07-13 17:36 | Emergency (ER) | payer MEDICAID, SELFPAY ==
[2022-07-13 17:37] VITALS: BP 117/83; PULSE 78; RESP 18; TEMP 36.6; O2SAT 98; BMI 34.7
--- NOTE | 2022-07-13 18:48 | ED.VIS.GI ---
HPI HPI - GI History of Present Illness Chief Complaint: Abd Pain Narrative Narrative: 31-year-old female presenting with epigastric pain. She states it feels like it is burning. She was seen yesterday for lower back pain. She had normal blood work then. She was discharged home. Today she states she developed the burning this morning. She does not have it coming up into her throat. No fevers, chills. No constipation or diarrhea. No urinary or vaginal complaints. PFSH PFSH Medical History Crohn's disease Home Medications adalimumab 40 mg/0.8 mL subcutaneous syringe kit (Humira) 40 mg SQ Q14D crohns 03/19/16 [History Last Taken 01/28/22] venlafaxine 75 mg capsule,extended release 24 hr 75 mg PO DAILY mood 02/05/22 [History Last Taken 02/04/22] lidocaine 5 % topical patch (Lidoderm) 1 patch topical DAILY #15 ea 07/12/22 [Rx Last Taken Unknown] naproxen 500 mg tablet (Naprosyn) 500 mg PO BID PRN pain #20 tabs 07/12/22 [Rx Last Taken Unknown] omeprazole 40 mg capsule,delayed release 40 mg PO DAILY #30 caps 07/13/22 [Rx Last Taken Unknown] sucralfate 100 mg/mL oral suspension (Carafate) 10 ml PO BID PRN Epigastric pain #200 mL 07/13/22 [Rx Last Taken Unknown] Allergy/AdvReac Type Severity Reaction Status Date / Time No Known Allergies Allergy Verified 07/13/22 17:36 Surgical History History of bowel resection Social History Smoking Status: Current every day smoker tobacco type: e-cigarettes ROS ROS ED Constitutional Constitutional ED: Denies chills, fever(s) or sweats Eyes Eyes: Denies blurry vision or change in vision ENT ENT ED: Denies ear pain or sore throat Cardiovascular Cardiovascular: Denies chest pain, palpitations or racing heartbeat Respiratory/Chest Respiratory/Chest: Denies cough, dyspnea or sputum Gastrointestinal Gastrointestinal: Reports abdominal pain; Denies constipation, diarrhea, nausea or vomiting Genitourinary Genitourinary ED: Denies dysuria, hematuria or urinary frequency Musculoskeletal Musculoskeletal: Denies arthralgias, myalgias or neck pain Integumentary Denies abscess, Abrasions or rash Neurologic Neurologic: Denies headache(s), paresthesias or weakness Psychiatric Psychiatric: Denies anxiety, depression, suicidal ideation or suicidal thoughts Endocrine Endocrinology: Denies polydipsia or polyuria EXAM Physical Exam Const Vital Signs: 07/13/22 17:37 Temperature 97.8 F Temperature Source Temporal Pulse Rate 78 Respiratory Rate 18 Blood Pressure 117/83 H Blood Pressure Mean 94 Pulse Ox 98 Oxygen Delivery Method Room Air Positive well nourished General Appearance ED: NAD HEENT Reports moist mucous membranes normocephalic and atraumatic Eyes PERRL Resp normal respiratory effort Cardio regular rate and regular rhythm GI GI Narrative: Tenderness in the epigastrium. Palpation: Negative for guarding or rigid Back/Spine no CVA tenderness Neuro CN's II-XII intact bilaterally Sensorium / Orientation: alert Psych mental status grossly normal and thought process normal Skin no wounds MDM MDM MDM Narrative Medical decision making narrative: Patient presenting of epigastric burning. She does not right upper quadrant pain. Differential includes gastritis, pancreatitis, acid reflux. Patient had normal blood work done yesterday which included a CBC, BMP. Urinalysis and hCG were negative yesterday. We will add a LFT and a lipase. Obtain a KUB. GI cocktail was given. Patient states the burning is improved after she was given a GI cocktail. LFTs were added and are normal. Lipase is negative. KUB was obtained and shows no obstructive pattern on my interpretation. Radiologist interprets this and agrees. At this point I think patient stable for discharge. She was started on a PPI and given some Carafate. Return precautions discussed. Impression: 1. Epigastric pain Lab Data Labs: Laboratory Results - last 24 hr 07/13/22 18:11 Total Bilirubin 0.30 Direct Bilirubin 0.11 AST 27 ALT 40 Alkaline Phosphatase 56 Total Protein 7.1 Albumin 3.4 Globulin 3.7 Lipase 30 Radiography Diagnostic Testing: Clinical Impression(s) from Imaging Studies KUB X-Ray 07/13/22 19:31 IMPRESSION: Non-obstructive bowel gas pattern. Electronically Signed: Garrett Martinez MD at 20:19 EDT , Discharge Plan Triage Chief Complaint: Abd Pain ED Provider: Carmelo Puckett Dx/Rx/DC Orders Instructions: ED Epigastric Pain Uncertain Cause Prescriptions: New omeprazole 40 mg capsule,delayed release(DR/EC) 40 mg PO DAILY Qty: 30 0RF sucralfate [Carafate] 100 mg/mL suspension 10 ml PO BID PRN (Reason: Epigastric pain) Qty: 200 0RF No Action Humira 40 MG/0.8 ML syringe kit 40 mg SQ Q14D Label Comments: CHRONS venlafaxine 75 mg capsule,extended release 24hr 75 mg PO DAILY Label Comments: TAKE 1 CAPSULE BY MOUTH ONCE DAILY naproxen [Naprosyn] 500 mg tablet 500 mg PO BID PRN (Reason: pain) Qty: 20 0RF lidocaine [Lidoderm] 5 % adhesive patch,medicated 1 patch topical DAILY Qty: 15 0RF Rx Instructions: leave on most painful area for up to 12 hrs Primary Care Provider: Roque Lozano Referrals: Roque Lozano MD [Primary Care Provider] - Disposition Disposition: Home, Self Care
[2022-07-13 19:11] LABS: AST(SGOT) 27 U/L (15-37); Alanine Aminotransfer ALT/SGPT 40 U/L (13-56); Albumin, Serum 3.4 g/dL (3.2-5.0); Alkaline Phosphatase 56 U/L (45-117); Bilirubin, Direct 0.11 mg/dL (0.00-0.30); Globulin 3.7 g/dL (2.2-4.2); Lipase 30 U/L (13-75); Protein, Total 7.1 g/dL (6.4-8.2)
--- NOTE | 2022-07-13 19:31 | RAD_ITS ---
INDICATION: ab pain EXAMINATION/TECHNIQUE: X-RAY - XR Abdomen 1 View COMPARISON: None FINDINGS: BOWEL GAS PATTERN: Non-obstructive. No bowel or stomach distention. FREE AIR: Not assessed on a single supine view. ORGANOMEGALY: Not seen. CALCIFICATIONS: No abnormal calcifications observed. LOWER CHEST: No acute pathology. BONES AND SOFT TISSUES: No acute pathology. RAD/Abdomen Single View (Portable) IMPRESSION: Non-obstructive bowel gas pattern. Electronically Signed: Garrett Martinez MD at 20:19 EDT ,
[2022-07-13] MEDS: Mag Hydrox/Al Hydrox/Simeth 30 ML UDC PO (19:39)
[2022-07-13 20:00] VITALS: RESP 17
== END 2022-07-13 21:01 | disposition home or self-care (01) ==
PROVIDERS: Emergency Provider Student in an Organized Health Care Education/Training Program; PCP Family Medicine; Visit Provider Student in an Organized Health Care Education/Training Program
DX: R10.13 Epigastric pain (principal); F17.290 Nicotine dependence, other tobacco product, uncomplicated
CPT/HCPCS: 74018; 80076; 83690; 99284

== ENCOUNTER 2022-07-17 12:23 | Emergency (ER) | payer MEDICAID, SELFPAY ==
[2022-07-17 12:24] VITALS: BP 117/61; PULSE 78; RESP 16; TEMP 36.2; O2SAT 95; BMI 34.3
--- NOTE | 2022-07-17 12:32 | EDS_ITS ---
HPI <ARMANDO Pickens - Last Filed: 07/17/22 13:35> History of Present Illness Chief Complaint: Lower Extremity Injury Narrative Narrative: Patient is a 31-year-old female with no significant medical history presents the emergency department with pain to the left foot. Patient states last evening around 11 PM, she was walking in the dark and struck her foot on her son's Lego table. Patient has pain to the medial aspect of the foot on the dorsal side. S he states there is no bruising now but it was bruising last evening. She states she has pain with walking and is here for evaluation. Denies any ankle injury. PFSH <ARMANDO Pickens - Last Filed: 07/17/22 13:35> PFSH Medical History Crohn's disease Home Medications adalimumab 40 mg/0.8 mL subcutaneous syringe kit (Humira) 40 mg SQ Q14D crohns 03/19/16 [History Last Taken 01/28/22] venlafaxine 75 mg capsule,extended release 24 hr 75 mg PO DAILY mood 02/05/22 [History Last Taken 02/04/22] lidocaine 5 % topical patch (Lidoderm) 1 patch topical DAILY #15 ea 07/12/22 [Rx Last Taken Unknown] naproxen 500 mg tablet (Naprosyn) 500 mg PO BID PRN pain #20 tabs 07/12/22 [Rx Last Taken Unknown] omeprazole 40 mg capsule,delayed release 40 mg PO DAILY #30 caps 07/13/22 [Rx Last Taken Unknown] sucralfate 100 mg/mL oral suspension (Carafate) 10 ml PO BID PRN Epigastric pain #200 mL 07/13/22 [Rx Last Taken Unknown] Allergy/AdvReac Type Severity Reaction Status Date / Time No Known Allergies Allergy Verified 07/17/22 12:24 Surgical History History of bowel resection Social History Smoking Status: Current every day smoker tobacco type: e-cigarettes ROS <ARMANDO Pickens - Last Filed: 07/17/22 13:35> ROS ED ROS Narrative Constitutional: Negative for fever, chills, weight loss, weakness Eyes: Negative for vision loss, vision change, double vision ENT: Negative for any sore throat, ear pain, congestion Cardiovascular: Negative for any chest pain, tightness, palpitations Respiratory: Negative for any cough, sputum production, hemoptysis, dyspnea, dyspnea on exertion, orthopnea Gastrointestinal: Negative for any abdominal pain, nausea, vomiting, diarrhea, constipation, blood in stool, blood in vomit : Negative for any urinary frequency, dysuria, retention, blood in urine Muscle skeletal: Negative for any muscle joint pain, stiffness, myalgias, arthralgias, neck pain, back pain. Positive for left foot pain Neurological: Negative for any headache, syncope, numbness or tingling, dizziness Skin: Negative for any rashes, lumps, itching, abrasions, lacerations Psychiatric: Negative for any depression, anxiety, stress, suicidal ideation, homicidal ideation Hematologic: Negative for any easy bruising, excessive bruising, easy bleeding Allergies: Negative for any eczema, hives, rash EXAM <ARMANDO Pickens - Last Filed: 07/17/22 13:35> Physical Exam Narrative Exam Narrative: Vital signs reviewed. Extremities: No peripheral edema, no signs of gross trauma or deformity. Active full range of motion of all extremities. +2 pedal pulse. Patient that she has worsening pain with moving her toes. No pain to the medial or lateral malleolus . No deformity noted. No neurological focal deficits. Neuro: Cranial nerves II through XII intact, no focal neurological deficits. Skin: Clean dry and intact with no rash, purpura, petechiae, vesicles or pustules. Backs/flank: No CVA tenderness, no midline spinal tenderness, no deformity. Psych: Normal mood and affect. No SI, HI or acute psychosis. Const Vital Signs: 07/17/22 12:24 Temperature 97.1 F L Temperature Source Temporal Pulse Rate 78 Respiratory Rate 16 Blood Pressure 117/61 Blood Pressure Mean 79 Pulse Ox 95 Oxygen Delivery Method Room Air <Dr. Carmelo Puckett DO - Last Filed: 07/17/22 17:14> Physical Exam Const Vital Signs: 07/17/22 12:24 Temperature 97.1 F L Temperature Source Temporal Pulse Rate 78 Respiratory Rate 16 Blood Pressure 117/61 Blood Pressure Mean 79 Pulse Ox 95 Oxygen Delivery Method Room Air MDM <ARMANDO Pickens - Last Filed: 07/17/22 13:35> [facility] Radiography Diagnostic Testing: Clinical Impression(s) from Imaging Studies Foot X-Ray 07/17/22 12:50 IMPRESSION: Negative. Electronically Signed: Annmarie Quevedo MD at 13:28 EDT Reading Location ID and State: [facility] / [place] Tel , Service support , Treatment and Re-Evaluation :: All radiologic examinations were read, reviewed by the emergency department attending. From these reads, a plan of care will be put in place. Patient appears well, patient appears nontoxic, vital signs are stable. Patient presents to the emergency department with complaints of left foot pain following an injury with her kicking a table on accident. Patient's x-rays were grossly unremarkable for any acute osseous abnormality. Patient be diagnosed with a contusion, she will be instructed to use ibuprofen, Tylenol. Ice elevate and to perform activities as tolerated. She had no further questions, patient stable for discharge <Dr. Carmelo Puckett DO - Last Filed: 07/17/22 17:14> [facility] Narrative Medical decision making narrative: Patient appears well, patient appears nontoxic, vital signs are stable. Patient presents to the emergency department with complaints of left foot pain following an injury with her kicking a table on accident. Patient's x-rays were grossly unremarkable for any acute osseous abnormality. Patient be diagnosed with a contusion, she will be instructed to use ibuprofen, Tylenol. Ice elevate and to perform activities as tolerated. She had no further questions, patient stable for discharge. This patient was seen with a PA/CHIEF EXECUTIVE Individually assessed they patient including history and physical. I have reviewed everything on the chart that is available and agree with the documentation provided by the PA/CHIEF EXECUTIVE including discussion about the assessment, treatment plan, discussion, and return precautions. Patient incidentally came her kids table and she has pain in her foot. She is able to ambulate. X-rays on my interpretation show no fractures. Patient given ibuprofen. She declines crutches. Radiography Diagnostic Testing: Clinical Impression(s) from Imaging Studies Foot X-Ray 07/17/22 12:50 IMPRESSION: Negative. Electronically Signed: Annmarie Quevedo MD at 13:28 EDT , All radiologic examinations were read, reviewed by the emergency department attending. From these reads, a plan of care will be put in place. Discharge Plan Triage Chief Complaint: Lower Extremity Injury ED Midlevel Provider: Jose Burroughs ED Provider: Carmelo Puckett Dx/Rx/DC Orders Clinical Impression: Contusion of foot Instructions: ED Foot Contusion Prescriptions: No Action Humira 40 MG/0.8 ML syringe kit 40 mg SQ Q14D Label Comments: CHRONS venlafaxine 75 mg capsule,extended release 24hr 75 mg PO DAILY Label Comments: TAKE 1 CAPSULE BY MOUTH ONCE DAILY naproxen [Naprosyn] 500 mg tablet 500 mg PO BID PRN (Reason: pain) Qty: 20 0RF lidocaine [Lidoderm] 5 % adhesive patch,medicated 1 patch topical DAILY Qty: 15 0RF Rx Instructions: leave on most painful area for up to 12 hrs omeprazole 40 mg capsule,delayed release(DR/EC) 40 mg PO DAILY Qty: 30 0RF sucralfate [Carafate] 100 mg/mL suspension 10 ml PO BID PRN (Reason: Epigastric pain) Qty: 200 0RF Primary Care Provider: Roque Lozano Referrals: Roque Lozano MD [Primary Care Provider] - Activity Restrictions/Additional Instructions: Please rest, ice and elevate, use ibuprofen, Tylenol Disposition Disposition: Home, Self Care Discharge Date/Time: 07/17/22 13:38
--- NOTE | 2022-07-17 12:50 | RAD_ITS ---
INDICATION: pain EXAMINATION/TECHNIQUE: X-RAY - LEFT XR Foot Min 3 Views 3 VIEWS COMPARISON: FINDINGS: SOFT TISSUES: No soft tissue swelling or gas. No radiopaque foreign body. BONES/JOINTS: No acute fracture or subluxation.. Normal alignment. Preservation of the joint space.. No sclerotic or destructive changes observed. RAD/Foot min 3 Views IMPRESSION: Negative. Electronically Signed: Annmarie Quevedo MD at 13:28 EDT ,
== END 2022-07-17 13:38 | disposition home or self-care (01) ==
PROVIDERS: Emergency Provider Student in an Organized Health Care Education/Training Program; PCP Family Medicine; Visit Provider Student in an Organized Health Care Education/Training Program
DX: S90.32XA Contusion of left foot, initial encounter (principal); K50.90 Crohn's disease, unspecified, without complications; W22.09XA Striking against other stationary object, initial encounter; Z79.899 Other long term (current) drug therapy; F17.290 Nicotine dependence, other tobacco product, uncomplicated
CPT/HCPCS: 73630; 99282

== ENCOUNTER 2022-08-29 19:02 | Emergency (ER) | payer MEDICAID, SELFPAY ==
[2022-08-29 19:03] VITALS: BP 123/89; PULSE 94; RESP 18; TEMP 36.4; O2SAT 99; BMI 31.7
--- NOTE | 2022-08-29 19:49 | EX.ED.DYSGE1 ---
HPI History of Present Illness Chief Complaint: Abd Pain PFSH PFS Medical History Crohn's disease Home Medications adalimumab 40 mg/0.8 mL subcutaneous syringe kit (Humira) 40 mg SQ Q14D crohns 03/19/16 [History Last Taken 01/28/22] venlafaxine 75 mg capsule,extended release 24 hr 75 mg PO DAILY mood 02/05/22 [History Last Taken 02/04/22] lidocaine 5 % topical patch (Lidoderm) 1 patch topical DAILY #15 ea 07/12/22 [Rx Last Taken Unknown] naproxen 500 mg tablet (Naprosyn) 500 mg PO BID PRN pain #20 tabs 07/12/22 [Rx Last Taken Unknown] omeprazole 40 mg capsule,delayed release 40 mg PO DAILY #30 caps 07/13/22 [Rx Last Taken Unknown] sucralfate 100 mg/mL oral suspension (Carafate) 10 ml PO BID PRN Epigastric pain #200 mL 07/13/22 [Rx Last Taken Unknown] oxycodone-acetaminophen 5 mg-325 mg tablet (Percocet) 1 tab PO Q6H PRN pain 3 days #12 tabs 08/29/22 [Rx Last Taken Unknown] prednisone 50 mg tablet 50 mg PO DAILY #5 tabs 08/29/22 [Rx Last Taken Unknown] Allergy/AdvReac Type Severity Reaction Status Date / Time No Known Allergies Allergy Verified 08/29/22 19:03 Surgical History History of bowel resection Social History Smoking Status: Current every day smoker tobacco type: e-cigarettes EXAM Physical Exam Const Vital Signs: 08/29/22 19:03 08/29/22 23:17 Temperature 97.6 F L Temperature Source Temporal Pulse Rate 94 Respiratory Rate 18 18 Blood Pressure 123/89 H Blood Pressure Mean 100 Pulse Ox 99 Oxygen Delivery Method Room Air MDM MDM MDM Narrative Medical decision making narrative: HISTORY OF PRESENT ILLNESS: 32-year-old female here with abdominal pain. She states she had sudden onset of abdominal pain nausea vomiting and diarrhea. REVIEW OF SYSTEMS: Pertinent positives: Abdominal pain, nausea, vomiting, diarrhea Pertinent negatives: Fever PHYSICAL EXAM: Nursing triage notes reviewed, Vital signs reviewed Constitutional: please see mdm HENT: MMM Eyes: Pupils equal round and reactive to light, Extraocular muscles intact Neck: No stridor, no JVD, full neck ROM Lungs: Clear to auscultation, No wheezing or rales. No increased work of breathing, no conversational dyspnea, no accessory muscle use, no nasal flaring. No respiratory distress noted Heart: Regular rate and rhythm, No murmurs, No rubs and No gallops, 2+ distal pulses (radial, femoral, posterior tibial) in all extremities Abdomen: Soft, there is no tenderness, rigidity, rebound or guarding, no obvious peritoneal signs, no palpable pulsatile abdominal masses, no auscultated abdominal bruit : No CVAT Extremities: No edema Neuro: No focal neurological deficits, cranial nerves II through XII intact, 5/5 strength in all extremities. Intact sensation to light touch in all extremities, 2+ reflexes bilateral patella tendons. Normal gait. No ataxia. Skin: No rash or lesions noted MEDICAL DECISION MAKING: Chief Complaint: Abdominal pain, nausea, vomiting, diarrhea External records reviewed: Last CT scan of the abdomen pelvis in our system was in January 2022. This image showed small bowel obstruction Factors affecting care: Crohn's disease, small bowel obstruction Social determinants of health: none History obtained from others: none Consults: none ALL IMAGES (IF OBTAINED) HAVE BEEN PERSONALLY REVIEWED AND INTERPRETED BY MYSELF. CBC without leukocytosis, severe anemia, no thrombocytopenia. Urine test negative Urinalysis shows no evidence of urinary inflammation suggestive of UTI CMP without evidence of acute kidney injury, significant electrolyte abnormality, anion gap, no evidence hepatobiliary pathology. [facility] Narrative: The patient was hemodynamically stable, afebrile, nontoxic-appearing. I considered the following differential diagnosis: Small bowel obstruction, perforation, pancreatitis, gallbladder etiology, Crohn's flare I obtained a broad lab and imaging work-up to further elucidate etiology the patient complaints. CT scan shows evidence of a Crohn's flare. No evidence of obstruction or other surgical process. Labs are unremarkable. Patient was given steroids here and steroids for home-going as well as GI follow-up The patient and/or family, caregivers express understanding. The patient and/or family, caregivers agrees with the plan. Total critical care time today provided was at least 0 minutes. This excludes separately billable procedures. Critical care time (if documented) is secondary to the patient having high probability of clinically significant/life threatening deterioration in the patient's condition which required my urgent intervention. Shared decision making: I will have a discussion with the patient and or visitors regarding risk/benefits of further testing or admission. They will be made aware of of the risk/benefits inherent in this decision they will be given the opportunity to voice understanding. Lab Data Attestation: I reviewed the patient's lab results. Labs: Laboratory Results - last 24 hr 08/29/22 20:00 WBC 8.6 RBC 4.93 Hgb 13.6 Hct 41.7 MCV 84.6 MCH 27.6 MCHC 32.6 RDW Std Deviation 41.8 RDW Coeff of Ila 13.5 Plt Count 335 MPV 9.1 Immature Gran % (Auto) 0.300 Neut % (Auto) 54.7 Lymph % (Auto) 37.9 Whitley % (Auto) 5.8 Eos % (Auto) 0.8 Baso % (Auto) 0.5 Absolute Neuts (auto) 4.7 Absolute Lymphs (auto) 3.26 Nucleated RBC % 0 Sodium 139 Potassium 3.7 Chloride 110 H Carbon Dioxide 22.0 Anion Gap 7 BUN 10 Creatinine 0.86 Estim Creat Clear Calc 106.56 Est GFR (MDRD) Af Amer 99 Est GFR (MDRD) Non-Af 82 BUN/Creatinine Ratio 11.6 Glucose 91 Calcium 8.6 Total Bilirubin 0.30 AST 19 ALT 30 Alkaline Phosphatase 53 Total Protein 7.1 Albumin 3.2 Globulin 3.9 Albumin/Globulin Ratio 0.8 L Lipase 29 Urine Color Yellow Urine Clarity Sl. Cloudy Urine pH 6.0 Ur Specific [place] 1.015 Urine Protein Negative Urine Glucose (UA) Normal Urine Ketones Negative Urine Occult Blood 250 H Urine Nitrite Negative Urine Bilirubin Negative Urine Urobilinogen Normal Ur Leukocyte Esterase 500 H Urine RBC 0-5 SEEN Urine WBC 5-10 SEEN Ur Squamous Epith Cells 5-10 SEEN Urine Bacteria 1+ Urine Mucus 0 SEEN Urine Test Negative Radiography Diagnostic Testing: Clinical Impression(s) from Imaging Studies Abdomen/Pelvis CT 08/29/22 20:00 IMPRESSION: Findings suggest distal small bowel Crohn''s flare. Suspect adhesion between to distal loops of small bowel. Electronically Signed: Jose Williamson MD at 21:38 EDT , Discharge Plan Triage Chief Complaint: Abd Pain ED Provider: Dominick Sebastian Dx/Rx/DC Orders Clinical Impression: Crohn's colitis Prescriptions: New prednisone 50 mg tablet 50 mg PO DAILY Qty: 5 0RF oxycodone-acetaminophen [Percocet] 5-325 mg tablet 1 tab PO Q6H PRN (Reason: pain) 3 Days Qty: 12 0RF No Action Humira 40 MG/0.8 ML syringe kit 40 mg SQ Q14D Patient Comments: CHRONS venlafaxine 75 mg capsule,extended release 24hr 75 mg PO DAILY Patient Comments: TAKE 1 CAPSULE BY MOUTH ONCE DAILY naproxen [Naprosyn] 500 mg tablet 500 mg PO BID PRN (Reason: pain) Qty: 20 0RF lidocaine [Lidoderm] 5 % adhesive patch,medicated 1 patch topical DAILY Qty: 15 0RF Rx Instructions: leave on most painful area for up to 12 hrs omeprazole 40 mg capsule,delayed release(DR/EC) 40 mg PO DAILY Qty: 30 0RF sucralfate [Carafate] 100 mg/mL suspension 10 ml PO BID PRN (Reason: Epigastric pain) Qty: 200 0RF Primary Care Provider: Roque Lozano Referrals: Roque Lozano MD [Primary Care Provider] - Activity Restrictions/Additional Instructions: Thank you for trusting us with your care today! Please take Tylenol (2 pills, 650 mg), ibuprofen (2 pills, 400 mg) every 6 hours as needed for pain and fever control. Please take prednisone as prescribed. Please return to the emergency department if your symptoms change or worsen. Please follow with your gastroenterology for further outpatient evaluation and management. Disposition Disposition: Home, Self Care Discharge Date/Time: 08/29/22 23:38
--- NOTE | 2022-08-29 20:00 | CT_ITS ---
STUDY: CT ABDOMEN AND PELVIS WITH CONTRAST REASON FOR EXAM: Female, 32 years old. Abdominal pain hx of Crohn''s RADIATION DOSAGE (If Supplied By Facility): CTDIvol = ( 16.87 ) mGy, DLP = ( 953.97 ) mGycm TECHNIQUE: IV 100mL Isovue-300 was administered. Transaxial images were obtained from the dome of the diaphragm to the symphysis pubis. Multiplanar coronal and sagittal images were reformatted. Individualized Dose Optimization Techniques Were Used For This CT. COMPARISON: 02/04/2022 FINDINGS: The visualized lung bases are unremarkable. The visualized portions of the heart are within normal limits. Normal liver. Normal gallbladder and extrahepatic biliary system. Normal spleen. Normal pancreas. Normal bilateral adrenal glands. Normal visualized stomach. Inflammatory stranding about the distal small bowel with suggestion of adhesion between 2 loops of distal small bowel. No finding to suggest obstruction. Right hemicolectomy with mostly decompressed large bowel redemonstrated. Normal abdominal aorta. No retroperitoneal adenopathy. Normal right kidney. Normal left kidney. Normal urinary bladder. Normal visualized uterus. Normal abdominal wall. Normal thoracolumbar vertebral alignment. CT/Abdomen/Pelvis W IV Cont ONLY IMPRESSION: Findings suggest distal small bowel Crohn''s flare. Suspect adhesion between to distal loops of small bowel. Electronically Signed: Jose Williamson MD at 21:38 EDT ,
[2022-08-29 20:16] LABS: Mucous, Urine 0 SEEN /hpf (<or=2+)
[2022-08-29 20:18] LABS: Absolute Lymphocyte Count 3.26 X10^3/uL (0.83-4.51); Absolute Neutrophil Count 4.7 X10^3/uL (2.0-7.7); Basophil# 0.04 X10^3/uL; Basophil% 0.5 % (0-1); Eosinophil# 0.07 X10^3/uL; Eosinophils% 0.8 % (0-5); Hematocrit 41.7 % (37-47); Hemoglobin 13.6 g/dL (12.0-15.0); Lymphocyte # 3.26 X10^3/ul (0.83-4.51); Lymphocyte % 37.9 % (19-41); Mean Corp Hgb Conc 32.6 g/dL (32-36); Mean Corpuscular Hgb 27.6 pg (27.0-32.0); Mean Corpuscular Volume 84.6 fL (81-99); Mean Platelet Vol. 9.1 fl (6.2-12.0); Monocyte% 5.8 % (0-10); NRBC Flagged by Analyzer 0 % (0-5); Neutrophil % 54.7 % (47-70); Platelet Count 335 K/mm3 (150-450); RBC Distribution Width CV 13.5 % (11.6-14.6); RBC Distribution Width SD 41.8 fl (35.1-43.9); Red Blood Count 4.93 M/mm3 (4.2-5.4); White Blood Count 8.6 K/mm3 (4.4-11.0)
[2022-08-29 20:19] LABS: Color, Urine Yellow (Yellow); Glucose, Dipstick Normal (Normal); Ketone-Dipstick Negative (Negative); Leukocyte Esterase-Dipstick 500 /ul (Negative); Nitrite-Dipstick Negative (Negative); Occult Blood-Urine 250 /ul (Negative); Protein-Dipstick Negative (Negative); Specific Gravity, Urine 1.015 (1.002-1.030); Urine Bilirubin Dipstick Negative (Negative); Urine Clarity Sl. Cloudy (Clear); Urine Urobilinogen Normal (Normal)
[2022-08-29 20:30] LABS: Bacteria 1+ /hpf (None Seen); Red Blood Cells-Urine 0-5 SEEN /hpf (0-5); Squamous Epithelial Cells - UA 5-10 SEEN /hpf (5-10); White Blood Cells 5-10 SEEN /hpf (0-5)
[2022-08-29] MEDS: Ketorolac 15 MG/ML Vial IV (20:31)
[2022-08-29] MEDS: Morphine 4 MG/ML Syringe IV (20:31)
[2022-08-29 20:32] LABS: Internal QC Validated? YES +Cl - CLEAR BKGD; Pregnancy, Urine Negative Negative
[2022-08-29] MEDS: 0.9% Normal Saline 1,000 ML 1000 ML IV (20:32)
[2022-08-29] MEDS: Ondansetron 4 MG/2 ML Vial IV (20:32)
[2022-08-29 20:42] LABS: ALB/GLOB Ratio 0.8 RATIO (0.9-2.4); AST(SGOT) 19 U/L (15-37); Alanine Aminotransfer ALT/SGPT 30 U/L (13-56); Albumin, Serum 3.2 g/dL (3.2-5.0); Alkaline Phosphatase 53 U/L (45-117); Anion Gap 7 (5-15); BUN 10 mg/dL (7-18); BUN/Creat Ratio 11.6 RATIO (10-20); Calcium,Total 8.6 mg/dL (8.5-10.1); Chloride 110 mmol/L (98-107); Creatinine, Serum 0.86 mg/dL (0.55-1.02); EST Glomerular Filtration Rate 82 mL/min (>60); Est Glom Filt Rate - Afr Amer 99 mL/min (>60); Estimated Creatinine Clearance 106.56 ml/min; Globulin 3.9 g/dL (2.2-4.2); Glucose 91 mg/dL (74-106); Lipase 29 U/L (13-75); Potassium 3.7 mmol/L (3.5-5.1); Protein, Total 7.1 g/dL (6.4-8.2); Sodium Level 139 mmol/L (136-145)
--- NOTE | 2022-08-29 21:37 | ED.RN ---
CT called to let nurse know that patient had a localized reaction to the IV contrast.
[2022-08-29] MEDS: dexAMETHasone 10 MG/ML Vial 6 MG IV (22:14)
[2022-08-29 23:17] VITALS: RESP 18
== END 2022-08-29 23:38 | disposition home or self-care (01) ==
PROVIDERS: Emergency Provider Emergency Medicine; PCP Family Medicine; Visit Provider Emergency Medicine
DX: K50.10 Crohn's disease of large intestine without complications (principal); F17.290 Nicotine dependence, other tobacco product, uncomplicated
CPT/HCPCS: 74177; 80053; 81001; 81025; 83690; 85025; 87086; 87088; 96361; 96374; 96375; 99282; J7030; Q9967; A4216; J2405

== ENCOUNTER 2022-09-05 17:38 | Emergency (ER) | payer MEDICAID, SELFPAY ==
[2022-09-05 17:39] VITALS: BP 124/89; PULSE 87; RESP 14; TEMP 36.6; O2SAT 98; BMI 33.9
--- NOTE | 2022-09-05 19:04 | EKG12_ITS ---
Test Reason : CP Blood Pressure : / mmHG Vent. Rate : 080 BPM Atrial Rate : 080 BPM P-R Int : 124 ms QRS Dur : 076 ms QT Int : 398 ms P-R-T Axes : 032 043 046 degrees QTc Int : 459 ms Normal sinus rhythm Normal ECG Confirmed by BEATRIZ GARCÍA MD ([id number]), editor newspaper ELIAS TRACY ([id number]) on 09/07/2022 10:15:15 AM Referred By: KOSTA Confirmed By:BEATRIZ GARCÍA MD
--- NOTE | 2022-09-05 19:05 | RAD_ITS ---
INDICATION: chest pain EXAMINATION/TECHNIQUE: X-RAY - XR Chest 1 View AP portable. 7:08 PM COMPARISON: FINDINGS: LINES/DEVICES: None. LUNGS: No consolidation. No pneumothorax. MEDIASTINUM: Unremarkable. CARDIAC SILHOUETTE: Not enlarged. BONES AND SOFT TISSUES: No acute abnormalities. RAD/Chest 1 View (Portable) IMPRESSION: No evidence of active intrathoracic disease. Electronically Signed: Dipti Cote MD at 19:44 EDT ,
[2022-09-05] MEDS: Aspirin 81 MG TAB.CHEW 324 MG PO (19:12)
[2022-09-05 19:35] LABS: Absolute Lymphocyte Count 3.55 X10^3/uL (0.83-4.51); Absolute Neutrophil Count 9.2 X10^3/uL (2.0-7.7); Basophil# 0.06 X10^3/uL; Basophil% 0.4 % (0-1); Eosinophils% 0.7 % (0-5); Hematocrit 45.8 % (37-47); Hemoglobin 14.6 g/dL (12.0-15.0); Lymphocyte # 3.55 X10^3/ul (0.83-4.51); Lymphocyte % 25.4 % (19-41); Mean Corp Hgb Conc 31.9 g/dL (32-36); Mean Corpuscular Hgb 27.3 pg (27.0-32.0); Mean Corpuscular Volume 85.8 fL (81-99); Mean Platelet Vol. 8.7 fl (6.2-12.0); Monocyte# 0.78 X10^3/uL; Monocyte% 5.6 % (0-10); NRBC Flagged by Analyzer 0 % (0-5); Neutrophil # 9.23 X10^3/uL (2.7-7.7); Neutrophil % 65.9 % (47-70); Platelet Count 361 K/mm3 (150-450); RBC Distribution Width CV 13.6 % (11.6-14.6); RBC Distribution Width SD 42.4 fl (35.1-43.9); Red Blood Count 5.34 M/mm3 (4.2-5.4)
--- NOTE | 2022-09-05 19:45 | EKG12_ITS ---
Test Reason : CP REPEAT Blood Pressure : / mmHG Vent. Rate : 074 BPM Atrial Rate : 074 BPM P-R Int : 128 ms QRS Dur : 088 ms QT Int : 402 ms P-R-T Axes : 026 041 037 degrees QTc Int : 446 ms Normal sinus rhythm Normal ECG Confirmed by RICKY LOPEZ, BEATRIZ ([id number]), department editor [employer] TRACY ([id number]) on 09/07/2022 10:17:03 AM Referred By: JAMES Confirmed By:BEATRIZ GARCÍA MD
[2022-09-05 19:48] LABS: D-Dimer Quantitative (DVT/PE) < 0.27 FEU/ug/m (0.27-0.49)
[2022-09-05] MEDS: Erythromycin Ophthalmic (NSY) 1 GM OPTH.TUBE 1 APPLIC LEFT EYE (19:48)
[2022-09-05 19:52] VITALS: BP 127/81; PULSE 78; RESP 14; O2SAT 98
[2022-09-05 20:01] LABS: Anion Gap 5 (5-15); BUN 10 mg/dL (7-18); BUN/Creat Ratio 10.2 RATIO (10-20); Calcium,Total 9.4 mg/dL (8.5-10.1); Chloride 102 mmol/L (98-107); Creatinine, Serum 0.98 mg/dL (0.55-1.02); EST Glomerular Filtration Rate 70 mL/min (>60); Est Glom Filt Rate - Afr Amer 85 mL/min (>60); Estimated Creatinine Clearance 59.74 ml/min; Glucose 81 mg/dL (74-106); Potassium 3.7 mmol/L (3.5-5.1); Sodium Level 136 mmol/L (136-145); Troponin-I HS (w/2H Reflex) < 3 pg/mL (3.0-54.0)
--- NOTE | 2022-09-05 21:24 | ED.VIS.CHEST ---
HPI History of Present Illness Chief Complaint: Chest Pain Informant: patient Onset/Context/Timing Onset: Hours (3) Activity at onset: sudden Timing: Continuous Quality: Positive for Aching and Pressure Location: Left Chest Worsened By: Nothing Relieved By: Nothing Associated Symptoms: Positive for Lightheadedness and Acid Reflux; Negative for Nausea, Vomiting, Diaphoresis, Dyspnea, Cough, Fever or Palpitations Narrative Narrative: Patient presents with chest pain that began approximately 3 hours prior to arrival. Patient states it began rather suddenly. Patient states it is over the left side of her chest. Patient describes it as pressure and aching. Patient states it has been waxing and waning. Patient dates nothing makes it better nothing makes it worse. Patient admits to some lightheadedness and some acid reflux. Patient denies any nausea or vomiting. Patient denies any shortness of breath or cough. Patient denies any fevers or chills. Patient also states that she feels like she has pinkeye. Patient states she went to the urgent care to be checked for pinkeye in her left eye. Patient states that when she told them of her chest pain, she was referred to the emergency department. CVD Risk Factors: Positive for Smoking; Negative for Hypertension, Diabetes, Hypercholesterolemia or Family History 1' </=55 PE Risk Factors: Negative for Recent Travel/Surgery, Recent Immobilization, Prior DVT or PE, Cancer or OCP + Smoking + >/=35 [facility] Medical History (Updated 09/05/22 @ 23:[address] Dayo Casillas, DO) Crohn's disease Home Medications adalimumab 40 mg/0.8 mL subcutaneous syringe kit (Humira) 40 mg SQ Q14D crohns 03/19/16 [History Last Taken 01/28/22] venlafaxine 75 mg capsule,extended release 24 hr 75 mg PO DAILY mood 02/05/22 [History Last Taken 02/04/22] lidocaine 5 % topical patch (Lidoderm) 1 patch topical DAILY #15 ea 07/12/22 [Rx Last Taken Unknown] naproxen 500 mg tablet (Naprosyn) 500 mg PO BID PRN pain #20 tabs 07/12/22 [Rx Last Taken Unknown] omeprazole 40 mg capsule,delayed release 40 mg PO DAILY #30 caps 07/13/22 [Rx Last Taken Unknown] sucralfate 100 mg/mL oral suspension (Carafate) 10 ml PO BID PRN Epigastric pain #200 mL 07/13/22 [Rx Last Taken Unknown] oxycodone-acetaminophen 5 mg-325 mg tablet (Percocet) 1 tab PO Q6H PRN pain 3 days #12 tabs 08/29/22 [Rx Last Taken Unknown] prednisone 50 mg tablet 50 mg PO DAILY #5 tabs 08/29/22 [Rx Last Taken Unknown] Allergy/AdvReac Type Severity Reaction Status Date / Time No Known Allergies Allergy Verified 09/05/22 17:39 Surgical History (Updated 09/05/22 @ 22:[address] Dayo Casillas DO) History of bowel resection History of section Social History Smoking Status: Current every day smoker tobacco type: e-cigarettes ROS ROS ED Constitutional Constitutional ED: Denies chills or fever(s) Eyes Eyes: Denies blurry vision or change in vision ENT ENT ED: Denies rhinorrhea or sore throat Cardiovascular Cardiovascular: Reports chest pain; Denies palpitations Respiratory/Chest Respiratory/Chest: Denies cough or dyspnea Gastrointestinal Gastrointestinal: Denies abdominal pain, nausea or vomiting Genitourinary Genitourinary ED: Denies dysuria or hematuria Musculoskeletal Musculoskeletal: Denies back pain or neck pain Integumentary Denies abscess or rash Neurologic Neurologic: Denies headache(s) or weakness Allergic/Immunologic Allergic/Immunologic ED: Denies mouth swelling or urticaria EXAM Physical Exam Const Vital Signs: 09/05/22 17:39 09/05/22 19:52 09/05/22 23:22 Temperature 98 F Temperature Source Temporal Pulse Rate 87 78 74 Respiratory Rate 14 14 16 Blood Pressure 124/89 H 127/81 H 119/78 Blood Pressure Mean 100 96 Pulse Ox 98 98 97 Oxygen Delivery Method Room Air Room Air Positive well nourished, well developed and obese General Appearance ED: well developed and NAD Nutritional Appearance: obese HEENT normocephalic and atraumatic Eyes PERRL and EOMs intact bilaterally Eyes Narrative: Conjunctiva was injected on the left. There is some watery drainage. There are no foreign bodies noted. Neck supple and no JVD Chest Wall palpation of chest normal Resp normal respiratory effort and clear to auscultation bilaterally Effort and Inspection: Negative for respiratory distress Cardio regular rate, regular rhythm and no murmurs GI normal to inspection, nondistended, normoactive bowel sounds, soft to palpation, non-tender and non-distended Extremity normal to inspection General Extremety ED: Negative for edema or tenderness General Extremity: Negative for edema Neuro oriented x3, CN's II-XII intact bilaterally and no sensory deficits noted Sensorium / Orientation: awake and alert Motor Exam: strength 5/5 throughout Psych mental status grossly normal Heart Score History: Slightly/Non-Suspicious ECG: Normal Risk Factors: 1 or 2 Risk Factors Troponin: </= Normal Limit Score: 1 MDM MDM MDM Narrative Medical decision making narrative: Differential diagnosis includes cardiac dysrhythmia, cardiac ischemia, pneumonia, pneumothorax, pulmonary embolism, electrolyte abnormality, anxiety, and musculoskeletal pain. EKG will be obtained to assess for cardiac dysrhythmia and cardiac ischemia. Chest x-ray will be obtained to assess for pneumonia and pneumothorax. CBC will be obtained to assess for leukocytosis and anemia. Basic metabolic profile will be obtained to assess for electrolyte abnormality and renal function. High-sensitivity troponin will be obtained to assess for cardiac ischemia. 2-hour repeat high-sensitivity troponin will be obtained to assess for ongoing cardiac ischemia. D-dimer will be obtained to assess for pulmonary embolism. History & Record Review Discussion w/independent historian: Patient Lab Data Attestation: I reviewed the patient's lab results. Lab results narrative: CBC was reviewed. There is a mild leukocytosis of 14.0. Hemoglobin was 14.6 hematocrit was 45.8. Platelets were normal. D-dimer was reviewed and was normal. Basic metabolic profile was reviewed and was normal. High-sensitivity troponin was normal at less than 3. 2-hour repeat high-sensitivity troponin was also less than 3. Labs: Laboratory Results - last 24 hr 09/05/22 09/05/22 19:26 21:45 WBC 14.0 H RBC 5.34 Hgb 14.6 Hct 45.8 MCV 85.8 MCH 27.3 MCHC 31.9 L RDW Std Deviation 42.4 RDW Coeff of Ila 13.6 Plt Count 361 MPV 8.7 Immature Gran % (Auto) 2.000 H Neut % (Auto) 65.9 Lymph % (Auto) 25.4 [place] % (Auto) 5.6 Eos % (Auto) 0.7 Baso % (Auto) 0.4 Absolute Neuts (auto) 9.2 H Absolute Lymphs (auto) 3.55 Nucleated RBC % 0 D-Dimer Quant (PE/DVT) < 0.27 L Sodium 136 Potassium 3.7 Chloride 102 Carbon Dioxide 29.0 Anion Gap 5 BUN 10 Creatinine 0.98 Estim Creat Clear Calc 59.74 Est GFR (MDRD) Af Amer 85 Est GFR (MDRD) Non-Af 70 BUN/Creatinine Ratio 10.2 Glucose 81 Calcium 9.4 Troponin I High Sens < 3 L < 3 L Radiography Chest X-Ray - ED: 1 View, Read by ED Physician, Read by Radiologist and No Acute Disease Diagnostic Testing: Clinical Impression(s) from Imaging Studies Chest X-Ray 09/05/22 19:05 IMPRESSION: No evidence of active intrathoracic disease. Electronically Signed: Dipti Cote MD at 19:44 EDT , Portable 1 view chest x-ray was obtained. On my independent interpretation, lung rider are clear. There is normal cardiac silhouette. Bony thorax is normal. There is no acute process noted. Radiologist also interpreted the x-ray and agrees. EKG Initial EKG: Attestation: I personally reviewed and interpreted this EKG as follows: Interpretation: Sinus Rhythm (80) and No Acute Injury Pattern Comments: EKG was obtained. On my independent interpretation, it showed a normal sinus rhythm with a rate of 80. MS interval, QRS interval, and QTc intervals were all normal. [place] was normal. There are no acute ST or T wave changes. Prior EKG tracings: available for review Prior: Unchanged (07/12/2022) Follow-up EKG: Attestation: I personally reviewed and interpreted this EKG as follows: Interpretation: Sinus Rhythm (74) and No Acute Injury Pattern Comments: EKG was obtained. On my independent interpretation, it showed a normal sinus rhythm with a rate of 74. MS interval, QRS interval, and QTc intervals were all normal. [place] was normal. There are no acute ST or T wave changes. Prior EKG tracings: available for review Prior: Unchanged Treatment and Re-Evaluation :: Patient was given aspirin. Patient was given a dose of Toradol. Patient was advised of her findings. Patient has a HEART score of 1. Patient was advised that this is low risk for acute cardiac event. Patient was instructed to continue taking ibuprofen as needed for pain. Patient was instructed to follow-up with her primary care physician in 5 to 7 days. Patient also was given erythromycin ophthalmic ointment for conjunctivitis in her left eye. Patient was instructed return if worse in any way. Patient understood and was agreeable with the plan. All questions were answered. Discharge Plan Triage Chief Complaint: Chest Pain ED Provider: Dayo Casillas Dx/Rx/DC Orders Clinical Impression: Chest pain of uncertain etiology, Acute conjunctivitis, left eye Instructions: ED Chest Pain, Uncertain Cause Prescriptions: No Action Humira 40 MG/0.8 ML syringe kit 40 mg SQ Q14D Patient Comments: CHRONS venlafaxine 75 mg capsule,extended release 24hr 75 mg PO DAILY Patient Comments: TAKE 1 CAPSULE BY MOUTH ONCE DAILY naproxen [Naprosyn] 500 mg tablet 500 mg PO BID PRN (Reason: pain) Qty: 20 0RF lidocaine [Lidoderm] 5 % adhesive patch,medicated 1 patch topical DAILY Qty: 15 0RF Rx Instructions: leave on most painful area for up to 12 hrs omeprazole 40 mg capsule,delayed release(DR/EC) 40 mg PO DAILY Qty: 30 0RF sucralfate [Carafate] 100 mg/mL suspension 10 ml PO BID PRN (Reason: Epigastric pain) Qty: 200 0RF prednisone 50 mg tablet 50 mg PO DAILY Qty: 5 0RF oxycodone-acetaminophen [Percocet] 5-325 mg tablet 1 tab PO Q6H PRN (Reason: pain) 3 Days Qty: 12 0RF Primary Care Provider: Roque Lozano Referrals: Roque Lozano MD [Primary Care Provider] - 5-7 Days Disposition Disposition: Home, Self Care Discharge Date/Time: 09/05/22 23:23
[2022-09-05 21:31] LABS: Reflex Troponin-HS? (from REC) Y
[2022-09-05 22:13] LABS: Troponin-I HS < 3 pg/mL (3.0-54.0)
[2022-09-05] MEDS: Ketorolac 30 MG/ML Syringe IV (22:33)
[2022-09-05 23:22] VITALS: BP 119/78; PULSE 74; RESP 16; O2SAT 97
== END 2022-09-05 23:23 | disposition home or self-care (01) ==
PROVIDERS: Emergency Provider Emergency Medicine; PCP Family Medicine; Visit Provider Emergency Medicine
DX: R07.9 Chest pain, unspecified (principal); H10.32 Unspecified acute conjunctivitis, left eye; F17.290 Nicotine dependence, other tobacco product, uncomplicated; E66.9 Obesity, unspecified
CPT/HCPCS: 71045; 80048; 84484; 85025; 85379; 93005; 96374; 99285; A4216

== ENCOUNTER 2023-05-19 22:55 | Emergency (ER) | payer MEDICAID, SELFPAY ==
[2023-05-19 22:56] VITALS: BP 138/90; PULSE 70; RESP 16; TEMP 36.3; O2SAT 98; BMI 34.8
--- NOTE | 2023-05-19 23:09 | ED.VIS.BACK ---
HPI History of Present Illness Chief Complaint: Back Detail of Chief Complaint: Back pain Informant: patient Narrative Narrative: Patient presents with back pain started initially 3 days ago. Patient denies any injury. She describes a spasm-like sensation oftentimes when she is walking. Today she noticed some discomfort to her left leg at times. She denies paresthesias or leg weakness. She denies urinary symptoms. Does not think she is as she is on the Depo shot and her last period was 2 months ago. Patient does get occasional back pain. She has had sciatica before and she states this is different. She has had no falls or injuries. She denies lifting. [facility] Medical History Crohn's disease Home Medications adalimumab 40 mg/0.8 mL subcutaneous syringe kit (Humira) 40 mg SQ Q14D crohns 03/19/16 [History Last Taken 01/28/22] venlafaxine 75 mg capsule,extended release 24 hr 75 mg PO DAILY mood 02/05/22 [History Last Taken 02/04/22] lidocaine 5 % topical patch (Lidoderm) 1 patch topical DAILY #15 ea 07/12/22 [Rx Last Taken Unknown] naproxen 500 mg tablet (Naprosyn) 500 mg PO BID PRN pain #20 tabs 07/12/22 [Rx Last Taken Unknown] omeprazole 40 mg capsule,delayed release 40 mg PO DAILY #30 caps 07/13/22 [Rx Last Taken Unknown] sucralfate 100 mg/mL oral suspension (Carafate) 10 ml PO BID PRN Epigastric pain #200 mL 07/13/22 [Rx Last Taken Unknown] oxycodone-acetaminophen 5 mg-325 mg tablet (Percocet) 1 tab PO Q6H PRN pain 3 days #12 tabs 08/29/22 [Rx Last Taken Unknown] prednisone 50 mg tablet 50 mg PO DAILY #5 tabs 08/29/22 [Rx Last Taken Unknown] cyclobenzaprine 10 mg tablet 10 mg PO TID PRN Muscle Spasm #20 TABLETS 05/19/23 [Rx Last Taken Unknown] hydrocodone-acetaminophen 5-325mg 5mg-325mg 1 tab PO Q4H PRN PRN Pain 2 days #10 TABLETS 05/19/23 [Rx Last Taken Unknown] naproxen 500 mg tablet (Naprosyn) 500 mg PO BID PRN pain #20 tabs 05/19/23 [Rx Last Taken Unknown] Allergy/AdvReac Type Severity Reaction Status Date / Time No Known Allergies Allergy Verified 05/19/23 22:58 Surgical History History of bowel resection History of section Social History Smoking Status: Current every day smoker tobacco type: e-cigarettes ROS ROS ED Review of Systems ROS Unobtainable: other Constitutional Constitutional ED: Reports lethargy; Denies chills, fever(s), sweats or weight loss Eyes Eyes: Denies blurry vision, change in vision or diplopia ENT ENT ED: Denies rhinorrhea or sore throat Cardiovascular Cardiovascular: Denies chest pain, orthopnea or racing heartbeat Respiratory/Chest Respiratory/Chest: Denies cough, dyspnea, dyspnea on exertion, orthopnea or sputum Gastrointestinal Gastrointestinal: Denies abdominal pain, diarrhea, nausea or vomiting Genitourinary Genitourinary ED: Denies dysuria, hematuria or urinary frequency Musculoskeletal Musculoskeletal: Reports back pain; Denies arthralgias, myalgias or neck pain Integumentary Denies abscess, Abrasions or rash Neurologic Neurologic: Denies headache(s) or weakness Psychiatric Psychiatric: Denies anxiety, depression or suicidal thoughts Endocrine Endocrinology: Denies polydipsia, polyphagia or polyuria Hematologic/Lymphatic Hematologic/Lymphatic: Denies easy bleeding, easy bruising or lymphadenopathy Allergic/Immunologic Allergic/Immunologic ED: Denies mouth swelling, tongue swelling or urticaria EXAM Physical Exam Const Vital Signs: 05/19/23 22:56 Temperature 97.4 F L Temperature Source Temporal Pulse Rate 70 Respiratory Rate 16 Blood Pressure 138/90 H Blood Pressure Mean 106 Pulse Ox 98 Oxygen Delivery Method Room Air Positive well nourished and well developed General Appearance ED: well developed and NAD HEENT Reports TM's clear and moist mucous membranes normocephalic and atraumatic; Negative for trauma or tenderness Tympanic Membrane ED: Yes TM's clear Eyes PERRL and EOMs intact bilaterally General Eye ED: Negative for pale conjunctiva or scleral icterus Neck no lymphadenopathy, supple and no JVD General: Negative for tenderness Chest Wall inspection of chest normal and palpation of chest normal Chest: Negative for tenderness Resp normal respiratory effort and clear to auscultation bilaterally Effort and Inspection: Negative for respiratory distress or pain with movement Auscultation: Negative for rhonchi, wheezes or diminished lung sounds Cardio regular rate, regular rhythm, S1 normal heart sound, S2 normal heart sound and no murmurs Peripheral Pulses: pulses 2+ throughout GI normal to inspection, nondistended, normoactive bowel sounds, soft to palpation, non-tender, non-distended and no masses Back/Spine no CVA tenderness and no thoracic nor lumbar tenderness Back/Spine Narrative: No tenderness over the thoracic or lumbar spine. She does have point tenderness over the left lumbar paraspinal musculature that reproduces her pain. She has negative straight leg raises bilaterally. Deep tendon reflexes plus 2 out of 4 bilaterally at the patella and Achilles. Patient has normal L5 extension bilaterally. She has normal sensation to light touch. Extremity normal to inspection General Extremety ED: Negative for edema General Extremity: Negative for edema Neuro oriented x3, CN's II-XII intact bilaterally, no sensory deficits noted and gait normal Sensorium / Orientation: awake, alert, oriented to person, oriented to place and oriented to time Motor Exam: strength 5/5 throughout and strength abnormal Psych mental status grossly normal Skin no rashes or lesions noted and no wounds MDM MDM MDM Narrative Medical decision making narrative: Patient presents with atraumatic back pain. I do not feel any type of imaging is indicated. No red flag symptoms or signs of cauda equina. Patient will be treated with anti-inflammatory as well as muscle relaxer and a few [place] for pain. She is given some work restrictions. She is advised to follow-up with her primary care physician within next 3 to 5 days. Patient to return if worsening pain, weakness in extremities, change in bowel or bladder function, or condition should worsen anyway. Discharge Plan Triage Chief Complaint: Back ED Provider: Kirt Styles Dx/Rx/DC Orders Clinical Impression: Back pain Instructions: ED Back Pain (Acute or Chronic), ED Back Spasm, No Trauma Prescriptions: New cyclobenzaprine [cyclobenzaprine] 10 mg tablet 10 mg PO TID PRN (Reason: Muscle Spasm) Qty: 20 0RF hydrocodone-acetaminophen [hydrocodone-acetaminophen] 5-325 mg tablet 1 tab PO Q4H PRN PRN (Reason: Pain) 2 Days Qty: 10 0RF naproxen [Naprosyn] 500 mg tablet 500 mg PO BID PRN (Reason: pain) Qty: 20 0RF No Action Humira 40 MG/0.8 ML syringe kit 40 mg SQ Q14D Patient Comments: CHRONS venlafaxine 75 mg capsule,extended release 24hr 75 mg PO DAILY Patient Comments: TAKE 1 CAPSULE BY MOUTH ONCE DAILY naproxen [Naprosyn] 500 mg tablet 500 mg PO BID PRN (Reason: pain) Qty: 20 0RF lidocaine [Lidoderm] 5 % adhesive patch,medicated 1 patch topical DAILY Qty: 15 0RF Rx Instructions: leave on most painful area for up to 12 hrs omeprazole 40 mg capsule,delayed release(DR/EC) 40 mg PO DAILY Qty: 30 0RF sucralfate [Carafate] 100 mg/mL suspension 10 ml PO BID PRN (Reason: Epigastric pain) Qty: 200 0RF prednisone 50 mg tablet 50 mg PO DAILY Qty: 5 0RF oxycodone-acetaminophen [Percocet] 5-325 mg tablet 1 tab PO Q6H PRN (Reason: pain) 3 Days Qty: 12 0RF Stand Alone Forms: ED Work / School Excuse Primary Care Provider: Roque Lozano Referrals: Roque Lozano MD [Primary Care Provider] - 3-5 Days Disposition Disposition: Home, Self Care Discharge Date/Time: 05/19/23 23:33
== END 2023-05-19 23:33 | disposition home or self-care (01) ==
LOC: ED 23:21
PROVIDERS: Emergency Provider Emergency Medicine; PCP Family Medicine; Visit Provider Emergency Medicine
DX: M54.50 Low back pain, unspecified (principal); F17.290 Nicotine dependence, other tobacco product, uncomplicated
CPT/HCPCS: 99282

== ENCOUNTER 2024-08-09 21:14 | Emergency (ER) | payer OTHER, SELFPAY ==
[2024-08-09 21:15] VITALS: BP 129/79; PULSE 85; RESP 16; TEMP 35.8; O2SAT 100; BMI 29.2
--- NOTE | 2024-08-09 22:12 | EX.ED.VISEXT ---
HPI History of Present Illness Chief Complaint: Bite Informant: patient Narrative Narrative: 34-year-old female presents for what she thinks may be a spider bite that occurred 3 or so hours prior to arrival. She states she started to feel some itching all of a sudden while she was sitting outside on her right forearm, looked down and noticed a couple of small bite iraheta. Then she noticed some itching on her right elbow. Then she started having numbness in the area of these, that started traveling up her upper arm, now it is close to her shoulder as far as the numbness. She is not having significant pain. She denies any systemic symptoms. She agrees that nothing looks bad she is here because of more the way that it feels in her arm. She did not see an insect or spider. She was sitting on her porch at the time. She did not see any large animal such as a bat or anything like that around her. She was with somebody else who also did not see anything like that, according to the patient. ROS ROS ED Constitutional Constitutional ED: Denies chills or fever(s) Eyes Eyes: Denies change in vision Cardiovascular Cardiovascular: Denies chest pain Respiratory/Chest Respiratory/Chest: Denies dyspnea Gastrointestinal Gastrointestinal: Denies nausea Musculoskeletal Musculoskeletal: Denies back pain, extremity pain, joint pain or neck pain Integumentary Reports as per HPI Neurologic Neurologic: Reports paresthesias RUE [facility] Medical History (Updated 08/09/24 @ 22:[address] Massimo Quinonez MD) Crohn's disease Home Medications ?Medication ?Instructions ?Recorded ?Last Taken ?Type adalimumab 40 mg/0.8 mL 40 mg SQ Q14D crohns 03/19/16 01/28/22 History subcutaneous syringe kit (Humira) venlafaxine 75 mg capsule,extended 75 mg PO DAILY mood 02/05/22 02/04/22 History release 24 hr lidocaine 5 % topical patch 1 patch topical DAILY #15 ea 07/12/22 Unknown Rx (Lidoderm) naproxen 500 mg tablet (Naprosyn) 500 mg PO BID PRN pain #20 tabs 07/12/22 Unknown Rx omeprazole 40 mg capsule,delayed 40 mg PO DAILY #30 caps 07/13/22 Unknown Rx release sucralfate 100 mg/mL oral 10 ml PO BID PRN Epigastric pain 07/13/22 Unknown Rx suspension (Carafate) #200 mL oxycodone-acetaminophen 5 mg-325 1 tab PO Q6H PRN pain 3 days #12 08/29/22 Unknown Rx mg tablet (Percocet) tabs prednisone 50 mg tablet 50 mg PO DAILY #5 tabs 08/29/22 Unknown Rx cyclobenzaprine 10 mg tablet 10 mg PO TID PRN Muscle Spasm #20 05/19/23 Unknown Rx TABLETS hydrocodone-acetaminophen 5-325mg 1 tab PO Q4H PRN PRN Pain 2 days 05/19/23 Unknown Rx 5mg-325mg #10 TABLETS naproxen 500 mg tablet (Naprosyn) 500 mg PO BID PRN pain #20 tabs 05/19/23 Unknown Rx Allergy/AdvReac Type Severity Reaction Status Date / Time No Known Allergies Allergy Verified 08/09/24 21:15 Family History no significant family his Surgical History History of section History of bowel resection Social History Smoking Status: Current every day smoker tobacco type: e-cigarettes EXAM Physical Exam Const Vital Signs: 08/09/24 21:15 Temperature 96.5 F L Temperature Source Temporal Pulse Rate 85 Respiratory Rate 16 Blood Pressure 129/79 H Blood Pressure Mean 95 Pulse Ox 100 Oxygen Delivery Method Room Air Positive well nourished and well developed General Appearance ED: well developed and NAD Neck full ROM Neck Narrative: supple Resp normal respiratory effort Extremity normal to inspection and full ROM Extremity Narrative: there are 2 small nontender erythematous bumps consistent with possible mosquito bites in the right olecranon area/elbow. Painless full range of motion of the joint. All compartments of the upper arm and forearm are soft and nondistended and nontender. There is no paresthesias in the hand or reproducible paresthesias with range of motion of the elbow or the wrist. No bony tenderness anywhere. There is also a very small nonraised erythematous area over a nevus on the dorsal right forearm that is nontender and without any lymphangitis anywhere. No epitrochlear lymphadenopathy. Neuro oriented x3 and CN's II-XII intact bilaterally Neuro Narrative: No gross sensory deficits. Subjective decrease sensation right upper arm. Median, radial, ulnar nerve sensory and motor function intact in the hand, including PIN and AIN branches. Psych mental status grossly normal and thought process normal Skin skin turgor normal Skin Narrative: See above. Couple of small bumps on the right elbow and forearm only consistent with insect bites. There is no surrounding blanching or necrosis or lymphangitis or any other lesions or rashes on the right upper extremity. MDM MDM MDM Narrative Medical decision making narrative: As I discussed with the patient, sitting or at rest and receiving a bite is more likely to be an insect, but if it was a spider it is probably a nonpoisonous spider bite. None of this is consistent with a black or brown recluse bite. I advised patient that it is likely that her symptoms will resolve without treatment. I do not see anything to treat her anything to test for her right here. Certainly nothing that looks infected. If anything gets worse we discussed signs and symptoms of infection, compartment syndrome, and what [place] spider bites look like, to return to the ER she is comfortable with that plan. She understands this is a clinical diagnosis. Discharge Plan Triage Chief Complaint: Bite ED Provider: Massimo Quinonez Dx/Rx/DC Orders Clinical Impression: Insect sting Instructions: ED Nonpoisonous Spider Bite Prescriptions: No Action Humira 40 MG/0.8 ML syringe kit 40 mg SQ Q14D Patient Comments: CHRONS venlafaxine 75 mg capsule,extended release 24hr 75 mg PO DAILY Patient Comments: TAKE 1 CAPSULE BY MOUTH ONCE DAILY naproxen [Naprosyn] 500 mg tablet 500 mg PO BID PRN (Reason: pain) Qty: 20 0RF lidocaine [Lidoderm] 5 % adhesive patch,medicated 1 patch topical DAILY Qty: 15 0RF Rx Instructions: leave on most painful area for up to 12 hrs omeprazole 40 mg capsule,delayed release(DR/EC) 40 mg PO DAILY Qty: 30 0RF sucralfate [Carafate] 100 mg/mL suspension 10 ml PO BID PRN (Reason: Epigastric pain) Qty: 200 0RF prednisone 50 mg tablet 50 mg PO DAILY Qty: 5 0RF oxycodone-acetaminophen [Percocet] 5-325 mg tablet 1 tab PO Q6H PRN (Reason: pain) 3 Days Qty: 12 0RF cyclobenzaprine [cyclobenzaprine] 10 mg tablet 10 mg PO TID PRN (Reason: Muscle Spasm) Qty: 20 0RF hydrocodone-acetaminophen [hydrocodone-acetaminophen] 5-325 mg tablet 1 tab PO Q4H PRN PRN (Reason: Pain) 2 Days Qty: 10 0RF naproxen [Naprosyn] 500 mg tablet 500 mg PO BID PRN (Reason: pain) Qty: 20 0RF Primary Care Provider: Roque Lozano Referrals: Roque Lozano MD [Primary Care Provider] - 3-5 Days if not improving (or ER if worse/red streaks/fevers) Print Language: Mongolian Disposition Disposition: Home, Self Care
--- OUTSIDE RECORDS SUMMARY | 2024-08-09 22:20 | XMS RPT_ITS | CCD ---
Author Organization [facility] Care Team Providers Care Electronic Sensing Equipment Assembler Name Role Phone CHARISSA PELLETIERFacundo Unavailable Unavailable PHYSICIAN, NONE Unavailable Unavailable OLGA PARKER Unavailable Unavailable PHYSICIAN, NONE Unavailable Unavailable EDMUND METZGER Unavailable Unavailable PHYSICIAN, NONE Unavailable Unavailable MYKE HARKINS Unavailable Unavailable PHYSICIAN, NONE Unavailable Unavailable REFERRING, CARLOS WO ID~[id number] Unavailable Unava ilable PHYSICIAN, NONE Unavailable Unavailable AMANDEEP LINCOLN Unavailable Unavailable PHYSICIAN, NONE Unavailable Unavailable ANTHONY, LONNIE M Unavailable Unavailable MANOKAS, TASOS Unavailable Unavailable ANTHONY, LONNIE M Unavailable Unavailable ANTHONY, LONNIE M Unavailable Unavailable MANOKAS, TASOS Unavailable Unavailable Revill, Skyler Kendall Unavailable Unavailable Revill, Skyler Kendall Unavailable Unavailable SAM, CLODAGH R Admitting Unavailable SAM, CLODAGH R Referring Unavailable UNKNOWN, PCP Primary Care Unavailable Seymour Butcher Attending Unavailable LULY BARFIELD Attending Unavailable UNKNOWN, PCP Primary Care Unavailable Elzbieta Russell Attending Unavaila José Antonio Paredes Referring Unavailable UNKNOWN, PCP Primary Care Unavailable UNKNOWN, PCP Primary Care Unavailable UNKNOWN, PCP Primary Care Unavailable UNKNOWN, PCP Primary Care Unavailable UNKNOWN, PCP Primary Care Unavailable Oberhauser, Mary L Attending Unavailable Oberhauser, Mary L Admitting Unavailable [...] Unavailable Oberhauser, Mary L Primary Care Unavailable [place], José Antonio A Attending Unavailable Oberhauser, Mary L Primary Care Unavailable [place], José Antonio A Admitting Unavailable [place], José Antonio A Attending Unavailable Oberhauser, Mary L Primary Care Unavailable [place], José Antonio A Attending Unavailable Oberhauser, Mary L Primary Care Unavailable [place], José Antonio A Attending Unavailable Oberhauser, Mary L Primary Care Unavailable Drew, Elzbieta K Admitting Unavailable Drew, Elzbieta K Attending Unavailable Oberhauser, Mary L Primary Care Unavailable Zia, José Antonio A Admitting Unavailable [place], José Antonio A Attending Unavailable Oberhauser, Mary L Primary Care Unavailable [place], José Antonio A Attending Unavailable Oberhauser, Mary L Primary Care Unavailable [place], José Antonio A Admitting Unavailable [place], José Antonio A Attending Unavailable Oberhauser, Mary L Primary Care Unavailable [place], José Antonio A Admitting Unavailable [place], José Antonio A Attending Unavailable Oberhauser, Mary L Primary Care Unavailable Carine Paredes Attending Unavailable Oberhauser, Mary L Primary Care Unavailable [place], José Antonio A Attending Unavailable Oberhauser, Mary L Primary Care Unavailable [place], José Antonio A Attending Unavailable Oberhauser, Mary L Primary Care Unavailable [place], José Antonio A Admitting Unavailable [place], José Antonio A Attending Unavailable Oberhauser, Mary L Primary Care Unavailable [place], José Antonio A Attending Unavailable Oberhauser, Mary L Primary Care Unavailable [place], José Antonio A Attending Unavailable Oberhauser, Mary L Primary Care Unavailable Roque Pope MD Primary Care Provider Roque Pope MD Primary Care Provider Roque Pope MD Primary Care Provider Roque Pope MD Primary Care Provider Nurse, Nurse Attending Unavailable Roque Pope MD Primary Care Provider Haagen [employer]PAINTER AIRCRAFT, Octavia Unavailable Suppan [employer]AR, Kandice A Unavailable Suppan [employer]AR, Kandice A Unavailable ROQUE POPE Attending Unavailable ROQUE POPE Primary Care Unavailable ROQUE POPE Primary Care Unavailable ROQUE POPE Primary Care Unavailable KARLA NORIEGA Attending Unavailable SELF Referring Unavailable ROQUE POPE Primary Care Unavailable KARLA NORIEGA Referring Unavailable ROQUE POPE Primary Care Unavailable NIKOROQUE Price Attending Unavailable NIKOROQUE Price Primary Care Unavailable NIKO, ROQUE Osei Primary Care Unavailable RAKEL LOVE Attending Unavailable ROQUE POPE Primary Care Unavailable NIKOROQUE Primary Care Unavailable NIKOROQUE Price Referring Unavailable NIKO, ROQUE Osei Primary Care Unavailable NIKO, ROQUE Osei Referring Unavailable NIKO, ROQUE Osei Primary Care Unavailable Allergies Allergy Classification Reported Allergen(s) Allergy Type Date of Onset Reaction(s) Facility (1 source) No Known Medication Allergies; Translations: [No Known Medication Allergies] Propensity to adverse reactions to drug (disorder) [facility] Repository Medications Current Medications Medication Drug Class(es) Dates Sig (Normalized) Sig (Original) amoxicillin 500 mg oral capsule (3 sources) Penicillin-class Antibacterial Start: 09-12-2022 End: 09-22-2022 take 1 capsule by mouth twice daily amoxicillin (AMOXIL) 500 mg capsule Take 1 capsule by mouth twice daily for 10 days. 20 capsule 0 09/12/2022 09/22/2022 Active Comment on above: [facility] for 10 days. bisacodyl 5 mg delayed release oral tablet (2 sources) Stimulant Laxative Start: 08-25-2022 End: 08-26-2022 Bisacodyl (DULCOLAX) 5 mg tab Indications: Crohn's disease of both small and large intestine with complication (HCC) Use as directed for Miralax / Gatorade Bowel Prep Kit 4 tablet 0 08/25/2022 08/26/2022 Active Start: 08-10-2022 End: 08-11-2022 Bisacodyl (DULCOLAX) 5 mg ta b Use as directed for Miralax / Gatorade Bowel Prep Kit 4 tablet 0 08/10/2022 08/11/2022 Active Comment on above: Use as directed for Miralax / Gatorade Bowel Prep Kit cephalexin 500 mg oral capsule (1 source) Cephalosporin Antibacterial Start: End: 10-02-2 024 take 1 capsule by mouth three times daily cephALEXin (KEFLEX) 500 mg capsule Indications: Secondary infection of skin Take 1 capsule by mouth three times a day for 7 days. 21 capsule 11/22/2023 11/29/2023 Active enteric contrast (will be provided with radiology test) (2 sources) Start: End: enteric contrast (will be provided with radiology test) Indications: Crohn's disease of small and large intestines with complication (HCC) For CT ENTEROGRAPHY W IVCON order Administer, As Directed One Time Only, via Oral, Rectal, both Oral and Rectal, Enteric Tube, Stoma or Indwelling Catheter, Enteric Contrast as designated per enteric contrast guidelines. 1 Each 0 08/17/2022 08/18/2022 Active Comment on above: For CT ENTEROGRAPHY W IVCON order Administer, As Directed One Time Only, via Oral, Rectal, both Oral and Rectal, Enteric Tube, Stoma or Indwelling Catheter, Enteric Contrast as designated per enteric contrast guidelines. ergocalciferol 1.25 mg oral capsule (20 sources) Provitamin D2 Compound Start: 025 End: 025 take 1 capsule by mouth every week ergocalciferol 50,000 unit capsule (VITAMIN D2, DRISDOL) Take 1 capsule by mouth one time a week. 12 capsule 04/23/2024 07/22/2024 Active Start: 08-29-2022 End: 10-31-2023 take 1 capsule by mouth every week ergocalciferol 50,000 unit capsule (VITAMIN D2, DRISDOL) Take 1 capsule by mouth one time a week. 12 capsule 08/29/2022 10/31/2023 Discontinued Comment on above: Take 1 capsule [facility] one time a week. Gatorade Sports Drink (2 sources) Start: 08-25-2022 End: 08-26-2022 Gatorade Sports Drink Indications: Crohn's disease of both small and large intestine with complication (HCC) Use as directed for Miralax / Gatorade Bowel Prep Kit 0 08/25/2022 08/26/2022 Active Start: 08-10-2022 End: 08-11-2022 Gatorade Sports Drink Use as directed for Miralax / Gatorade Bowel Prep Kit 0 08/10/2022 08/11/2022 Active Comment on above: Use as directed for Miralax / Gatorade Bowel Prep Kit iv contrast (will be provided with radiology test) (2 sources) Start: 08-18-19 End: 08-19-19 iv contrast (will be provided with radiology test) Indications: Crohn's disease of small and large intestines with complication (HCC) CT Enterography W Inject, intravenously, once for 1 dose.No IV access, insert saline lock prior to the beginning of sedation, infusion, injection of imaging exam. Discontinue saline lock post exam. If Pt. has a central line or IVAD, may access for administration according to line specific nursing protocol. Once exam is complete flush line and de-access according to line specific nursing protocol in the CT contrast administration guidelines link. 1 Each 0 08/17/2022 08/18/2022 Active Comment on above: CT Enterography W In ject, intravenously, once for 1 dose.No IV access, insert saline lock prior to the beginning of sedation, infusion, injection of imaging exam. Discontinue saline lock post exam. If Pt. has a central line or IVAD, may access for administration according to line specific nursing protocol. Once exam is complete flush line and de-access according to line specific nursing protocol in the CT contrast administration guidelines link. 1 ml medroxyPROGESTERone acetate 150 mg/ml prefilled syringe (20 sources) Progestin Start: 08-13-19 medroxyPROGESTERone (DEPO-PROVERA) 150 mg/mL Indications: Encounter for surveillance of injectable contraceptive Inject 1 mL intramuscularly every 12 weeks. Patient should start on August 12, 2024. 1 mL 3 08/12/2024 Active Start: 08-12-2024 medroxyPROGEST ERone (DEPO-PROVERA) 150 mg/mL Indications: Encounter for surveillance of injectable contraceptive Inject 1 mL intramuscularly every 12 weeks. Patient should start on August 12, 2024. 1 mL 3 08/12/2024 Active Start: 08-12-2024 medroxyPROGEST ERone (DEPO-PROVERA) 150 mg/mL Indications: Encounter for surveillance of injectable contraceptive Inject 1 mL intramuscularly every 12 weeks. Patient should start on August 12, 2024. 1 mL 3 08/12/2024 Active Start: 05-23-2024 End: 07-16-2025 medroxyPROGESTERone 150 mg i njection (DEPO-PROVERA) Start: 05-23-2024 End: 04-24-2025 150 mg, INTRAMUSCULAR, EVERY 12 WEEKS, 4 doses, First dose on Elizabet 05/23/24 at 0930, Last dose on Elizabet 01/30/25 at 0930, Hazardous Potential Reproductive Risk Drug: Use appropriate PPE. Start: 05-20-2024 End: 06-18-2024 medroxyPROGESTERone (DEPO-VT OVERA) 150 mg/mL Inject 1 mL intramuscularly every 12 weeks. 1 mL 05/20/2024 06/18/2024 Discontinued Start: 04-24-2023 End: 05-18-2024 medroxyPROGESTERone (DEPO-VT OVERA) 150 mg/mL Inject 1 mL intramuscularly every 12 weeks. 1 mL 3 04/24/2023 05/18/2024 Discontinued Start: 04-24-2023 End: 03-25-2024 150 mg, INTRAMUSCULAR, EVERY 12 WEEKS, 4 doses, First dose on Mon04/24/23 at 0830, Last dose on Mon01/01/24 at 0830, Hazardous Potential Reproductive Risk Drug: Use appropriate PPE. Start: 04-24-2023 End: 03-25-2024 medroxyPROGESTERone 150 mg i njection (DEPO-PROVERA) Start: 08-28-2020 medroxyPROGEST ERone (DEPO-PROVERA) 150 mg/mL Inject 1 mL intramuscularly every 12 weeks. 1 Syringe 3 08/28/2020 Active Comment on above: Inject 1 mL intramus cularly every 12 weeks. methylPREDNISolone (2 sources) Corticosteroid Start: 04-17-2023 End: 04-23-2023 methylPREDNISolone (MEDROL, ISABELLA,) 4 mg Dose-Pack Indications: Muscle strain Follow dosing instructions, take with food. 21 tablet 0 04/17/2023 04/23/2023 Active Start: 12-12-2019 End: 12-18-2019 methylPREDNISolone (MEDROL, ISABELLA,) 4 mg Dose-Pack Indications: Chronic pain of both knees , Foot pain, bilateral Follow dosing instructions, take with food. 1 Package 12/12/2019 12/18/2019 Comment on above: Follow dosing instru ctions, take with food. polyethylene glycol 3350 46012 mg powder for oral solution (2 sources) Osmotic Laxative Start: 08-25-2022 End: 08-26-2022 polyethylene glycol 3350 17 gram/dose powder Indications: Crohn's disease of both small and large intestine with complication (HCC) Use as directed for Miralax / Gatorade Bowel Prep Kit 238 g 0 08/25/2022 08/26/2022 Active Start: 08-10-2022 End: 08-11-2022 polyethylene glycol 3350 17 gram/dose powder Use as directed for Miralax / Gatorade Bowel Prep Kit 238 g 0 08/10/2022 08/11/2022 Active Comment on above: Use as directed for Miralax / Gatorade Bowel Prep Kit potassium chloride 10 meq extended release oral tablet (2 sources) Start: 10-20-2022 End: 11-19-2022 take 1 tablet by mouth twice daily potassium chloride (K-TAB) 10 mEq tablet Take 1 tablet by mouth twice daily. 60 tablet 0 10/20/2022 11/19/2022 Active Comment on above: Take 1 tablet by teagan twice daily. predniSONE 10 mg oral tablet (2 sources) Start: 11-22-2023 End: 12-04-2023 predniSONE (DELTASONE) 10 mg tablet Take 4 tabs daily x 3 days, then 3 tabs x 3 days, 2 tabs x 3 days, then 1 tab x3 days with food. 30 tablet 11/22/2023 12/04/2023 Active Start: 01-03-2022 End: 01-12-2022 predniSONE (DELTASONE) 10 mg tablet Indications: Neck pain Take 4 tabs daily for 3 days, then 2 tabs daily for 3 days, then 1 tab daily for 3 days with food. 21 tablet 0 01/03/2022 01/12/2022 Active Comment on above: Take 4 tabs daily fo r 3 days, then 2 tabs daily for 3 days, then 1 tab daily for 3 days with food. risankizumab-rzaa (SKYRIZI) 360 mg/2.4 mL (150 mg/mL) wearable injector (3 sources) Start: 12-26-2022 End: 06-24-2023 risankizumab-rzaa (SKYRIZI) 360 mg/2.4 mL (150 mg/mL) wearable injector Indications: Crohn's disease of both small and large intestine with complication (HCC) Inject 360mg (1 device) subcutaneously every 8 weeks. 7.2 mL 0 12/26/2022 06/24/2023 Active Comment on above: Inject 360mg (1 awais ce) subcutaneously every 8 weeks. risankizumab-rzaa (SKYRIZI) 360 mg/2.4 mL (150 mg/mL) wearable injector (20 sources) Start: 05-16-2024 End: 11-12-2024 risankizumab-rzaa (SKYRIZI) 360 mg/2.4 mL (150 mg/mL) wearable injector Indications: Crohn's disease of both small and large intestine with complication (HCC) Inject 360mg (1 device) subcutaneously every 8 weeks. 7.2 mL 05/16/2024 11/12/2024 Active Start: 05-01-2024 End: 05-16-2024 risankizumab-rzaa (SKYRIZI) 360 mg/2.4 mL (150 mg/mL) wearable injector Indications: Crohn's disease of both small and large intestine with complication (HCC) Inject 360mg (1 device) subcutaneously every 8 weeks. 7.2 mL 05/01/2024 05/16/2024 Discontinued Start: 05-01-2024 End: 10-28-2024 risankizumab-rzaa (SKYRIZI) 360 mg/2.4 mL (150 mg/mL) wearable injector Indications: Crohn's disease of both small and large intestine with complication (HCC) Inject 360mg (1 device) subcutaneously every 8 weeks. 7.2 mL 05/01/2024 10/28/2024 Active Start: 02-16-2024 End: 05-01-2024 risankizumab-rzaa (SKYRIZI) 360 mg/2.4 mL (150 mg/mL) wearable injector Indications: Crohn's disease of both small and large intestine with complication (HCC) Inject 360mg (1 device) subcutaneously every 8 weeks. 7.2 mL 02/16/2024 05/01/2024 Discontinued Start: 02-16-2024 End: 08-14-2024 risankizumab-rzaa (SKYRIZI) 360 mg/2.4 mL (150 mg/mL) wearable injector Indications: Crohn's disease of both small and large intestine with complication (HCC) Inject 360mg (1 device) subcutaneously every 8 weeks. 7.2 mL 02/16/2024 08/14/2024 Active Start: 09-20-2023 End: 02-16-2024 risankizumab-rzaa (SKYRIZI) 360 mg/2.4 mL (150 mg/mL) wearable injector Indications: Crohn's disease of both small and large intestine with complication (HCC) Inject 360mg (1 device) subcutaneously every 8 weeks. 7.2 mL 09/20/2023 02/16/2024 Discontinued Start: 09-20-2023 End: 04-17-2024 risankizumab-rzaa (SKYRIZI) 360 mg/2.4 mL (150 mg/mL) wearable injector Indications: Crohn's disease of both small and large intestine with complication (HCC) Inject 360mg (1 device) subcutaneously every 8 weeks. 7.2 mL 09/20/2023 04/17/2024 Active Start: 09-20-2023 End: 03-18-2024 risankizumab-rzaa (SKYRIZI) 360 mg/2.4 mL (150 mg/mL) wearable injector Indications: Crohn's disease of both small and large intestine with complication (HCC) Inject 360mg (1 device) subcutaneously every 8 weeks. 7.2 mL 09/20/2023 03/18/2024 Active Start: 09-20-2023 End: 03-18-2024 risankizumab-rzaa (SKYRIZI) 360 mg/2.4 mL (150 mg/mL) wearable injector Indications: Crohn's disease of both small and large intestine with complication (HCC) Inject 360mg (1 device) subcutaneously every 8 weeks. 7.2 mL 0 09/20/2023 03/18/2024 Active Start: 05-03-2023 End: 09-19-2023 risankizumab-rzaa (SKYRIZI) 360 mg/2.4 mL (150 mg/mL) wearable injector Indications: Crohn's disease of both small and large intestine with complication (HCC) Inject 360mg (1 device) subcutaneously every 8 weeks. 7.2 mL 0 05/03/2023 09/19/2023 Discontinued Start: 05-03-2023 End: 10-30-2023 risankizumab-rzaa (SKYRIZI) 360 mg/2.4 mL (150 mg/mL) wearable injector Indications: Crohn's disease of both small and large intestine with complication (HCC) Inject 360mg (1 device) subcutaneously every 8 weeks. 7.2 mL 0 05/03/2023 10/30/2023 Active Comment on above: Inject 360mg (1 awais ce) subcutaneously every 8 weeks. 24 hr venlafaxine 75 mg extended release oral capsule (20 sources) Serotonin and Norepinephrine Reuptake Inhibitor Start: 04-10-19 take 1 capsule by mouth once daily venlafaxine ER (EFFEXOR XR) 75 mg 24 hr capsule Take 1 capsule by mouth once daily. 90 capsule 3 04/10/2024 Active Start: 10-31-2023 End: 06-02-2024 take 2 capsules by mouth once daily venlafaxine ER (EFFEXOR XR) 37.5 mg 24 hr capsule Indications: Anxiety Take 2 capsules by mouth once daily. 60 capsule 1 04/03/2024 05/20/2024 Discontinued Start: 11-22-2021 End: 10-31-2023 take 1 capsule by mouth once daily venlafaxine ER (EFFEXOR XR) 75 mg 24 hr capsule Indications: Adjustment disorder with anxiety Take 1 capsule by mouth once daily. 90 capsule 3 04/22/2022 10/31/2023 Discontinued Start: 10-25-2021 [facility] 1 capsule [facility] once daily venlafaxine ER (EFFEXOR XR) 37.5 mg 24 hr capsule Indications: Adjustment disorder with anxiety Take 1 capsule by mouth once daily. 30 capsule 2 10/25/2021 Active Comment on above: Take 1 capsule by mo [facility] once daily. Completed/Discontinued Medications Medication Drug Class(es) Dates Sig (Normalized) Sig (Original) acetaminophen 325 mg oral tablet (20 sources) Start: 09-18-2022 End: 10-31-2023 take 2 tablets by mouth every six hours as needed acetaminophen (TYLENOL) 325 mg tablet Take 2 tablets by mouth every 6 hours as needed (for pain.). 09/18/2022 10/31/2023 Discontinued Comment on above: Take 2 tablets by mo [facility] every 6 hours as needed (for pain.). 0.8 ml adalimumab 50 mg/ml auto-injector (20 sources) Tumor Necrosis Factor Maximino Start: 09-23-2019 End: 11-02-2022 HUMIRA PEN 40 mg/0.8 mL INJECT 40 MG (0.8 ML) UNDER THE SKIN EVERY 2 WEEKS (CONTINUATION OF THERAPY) 2 Each 5 07/19/2022 11/02/2022 Discontinued (Other) Comment on above: INJECT 40 MG (0.8 ML ) UNDER THE SKIN EVERY 2 WEEKS (CONTINUATION OF THERAPY) cetirizine hydrochloride 10 mg oral tablet (4 sources) Histamine-1 Receptor Antagonist Start: 07-03-2020 take 1 tablet by mouth once daily cetirizine (ZYRTEC) 10 mg tablet Take 1 tablet by mouth once daily. 30 tablet 0 07/03/2020 Active Comment on above: Take 1 tablet by teagan once daily. cyclobenzaprine hydrochloride 10 mg oral tablet (8 sources) Muscle Relaxant Start: 01-03-2022 End: 04-22-2022 take 1 tablet by mouth three times daily as needed for muscle spasms cyclobenzaprine (FLEXERIL) 10 mg tablet Indications: Neck pain Take 1 tablet by mouth three times daily as needed for muscle spasm. 15 tablet 0 01/03/2022 04/22/2022 Discontinued (Discontinued by Patient) Start: 07-19-2018 End: 08-28-2020 take 1 tablet by mouth three times daily as needed cyclobenzaprine (FLEXERIL) 10 mg tablet Indications: Lumbar pain Take 1 tablet by mouth three times daily as needed. 30 tablet 07/19/2018 08/28/2020 Discontinued Comment on above: Take 1 tablet by teagan three times daily as needed for muscle spasm. metroNIDAZOLE 500 mg oral tablet (12 sources) Nitroimidazole Antimicrobial Start: 023 metroNIDAZOLE (FLAGYL) 500 mg tablet Indications: Crohn's disease of both small and large intestine with complication (HCC) Take 1 tablet by mouth at 9pm and take 1 tablet by mouth at 11pm the night before surgery. 2 tablet 0 08/25/2022 Active Comment on above: Take 1 tablet by teagan at 9pm and take 1 tablet by mouth at 11pm the night before surgery. neomycin sulfate 500 mg oral tablet (12 sources) Aminoglycoside Antibacterial Start: neomycin 500 mg tablet Indications: Crohn's disease of both small and large intestine with complication (HCC) Take 2 tablets by mouth at 9pm and take 2 tablets by mouth at 11pm the night before surgery. 4 tablet 0 08/25/2022 Active Comment on above: Take 2 tablets by mo [facility] at 9pm and take 2 tablets by mouth at 11pm the night before surgery. 24 hr nicotine 0.875 mg/hr transdermal system (20 sources) Cholinergic Nicotinic Agonist Start: End: apply 1 dose transdermal route every twenty-four hours nicotine (NICODERM) 14 mg/24 hr Indications: Vaping nicotine dependence, non-tobacco product Apply 1 Patch as directed every 24 hours. No smoking with patch. 30 Patch 0 04/22/2022 09/09/2022 Discontinued Start: 04-22-2022 End: 09-09-2022 apply 1 dose transdermal route every twenty-four hours nicotine (NICODERM) 21 mg/24 hr Indications: Vaping nicotine dependence, non-tobacco product Apply 1 Patch as directed every 24 hours. 30 Patch 0 04/22/2022 09/09/2022 Discontinued Start: 04-22-2022 End: 09-09-2022 nicotine (NICODERM) 7 mg/24 hr Indications: Vaping nicotine dependence, non-tobacco product Apply 1 Patch as directed every 24 hours. 30 Patch 0 04/22/2022 09/09/2022 Discontinued Comment on above: Apply 1 Patch as dir ected every 24 hours. Apply 1 Patch as dir ected every 24 hours. No smoking with patch. oxyCODONE hydrochloride 5 mg oral tablet (6 sources) Opioid Agonist Start: 3 End: 3 take 1 tablet by mouth every six hours as needed oxyCODONE IR (ROXICODONE) 5 mg immediate release tablet Indications: S/P small bowel resection Take 1 tablet by mouth every 6 hours as needed. 15 tablet 0 09/18/2022 11/02/2022 Discontinued (Other) Comment on above: Take 1 tablet by teagan every 6 hours as needed. risankizumab-rzaa (SKYRIZI SUBCUTANEOUS) (13 sources) End: risankizumab-rzaa (SKYRIZI SUBCUTANEOUS) Inject subcutaneously. 10/31/2023 Discontinued risankizumab-rza a (SKYRIZI SUBCUTANEOUS) Inject subcutaneously. Active risankizumab-rza a (SKYRIZI SUBCUTANEOUS) Inject subcutaneously. 0 Active Comment on above: Inject subcutaneousl y. Problems Active Problems Problem Classification Problem Date Documented Date Episodic/Chronic Adjustment disorders (4 sources) Adjustment disorder with anxious mood; Translations: [Adjustment disorder with anxiety] Chronic Allergic reactions (1 source) Contact dermatitis due to Genus Toxicodendron; Translations: [Unspecified contact dermatitis due to plants, except food] 11-22-2023 Episodic Anxiety disorders (20 sources) Anxiety; Translations: [Anxiety disorder, unspecified] Onset: 09-09-2022 09-09-2022 Chronic Contraceptive and procreative management (7 sources) Depot contraceptive status; Translations: [Encounter for surveillance of injectable contraceptive] Onset: 02-27-2024 04-26-2023 Episodic Deficiency and other anemia (1 source) Deficiency and other anemia Onset: 01-17-2017 Diseases of white blood cells (20 sources) Leukocytosis; Translations: [Elevated white blood cell count, unspecified] Onset: 09-09-2022 09-09-2022 Chronic Headache; including migraine (1 source) Migraine, unspecified, not intractable, without status migrainosus Onset: 09-22-2017 Chronic Immunizations and screening for infectious disease (13 sources) Vaccination needed; Translations: [Encounter for immunization] Onset: 06-18-2024 Episodic Malaise and fatigue (1 source) Malaise and fatigue; Translations: [Other malaise] 12-15-2022 Episodic Other aftercare (4 sources) Long-term current use of immunosuppressive drug; Translations: [Long-term use of immunosuppressant medication] Onset: 06-18-2024 06-19-2024 Episodic Other connective tissue disease (1 source) Ganglion cyst; Translations: [Ganglion, unspecified site] 11-25-2022 Episodic Other injuries and conditions due to external causes (1 source) Muscle strain; Translations: [Other injury of unspecified body region, initial encounter] 04-17-2023 Episodic Other non-traumatic joint disorders (2 sources) Pain in right knee; Translations: [Pain in joint, lower leg] 12-12-2019 Episodic Other nutritional; endocrine; and metabolic disorders (20 sources) Obesity caused by energy imbalance; Translations: [Other obesity due to excess calories] Onset: 09-09-2022 09-09-2022 Chronic Other nutritional; endocrine; and metabolic disorders (3 sources) Obesity; Translations: [Obesity, unspecified] 12-15-2022 Chronic Other nutritional; endocrine; and metabolic disorders (1 source) Obesity, unspecified; Translations: [Class 1 obesity with body mass index (BMI) of 30.0 to 30.9 in adult, unspecified obesity type, unspecified whether serious comorbidity present] Onset: 10-31-2023 Chronic Other nutritional; endocrine; and metabolic disorders (1 source) Body mass index (BMI) 30.0-30.9, adult; Translations: [Class 1 obesity with body mass index (BMI) of 30.0 to 30.9 in adult, unspecified obesity type, unspecified whether serious comorbidity present] Onset: 10-31-2023 Chronic Other screening for suspected conditions (not mental disorders or infectious disease) (9 sources) Patient encounter status; Translations: [Encounter for screening for lipoid disorders] Onset: 06-18-2024 Episodic Other upper respiratory infections (1 source) Streptococcal sore throat; Translations: [Streptococcal pharyngitis] 09-12-2022 Episodic Regional enteritis and ulcerative colitis (20 sources) Crohn's disease, unspecified, without complications; Translations: [Crohn's disease of small AND large intestines] Onset: 10-09-2017 Resolved: 10-31-2023 Chronic Residual codes; unclassified (1 source) 13 weeks gestation of ; Translations: [13 weeks gestation of ] Onset: 10-09-2017 Screening and history of mental health and substance abuse codes (1 source) Encounter for screening for depression; Translations: [Screening for depression] Onset: 05-20-2024 Episodic Skin and subcutaneous tissue infections (1 source) Infection of skin and/or subcutaneous tissue; Translations: [Other specified local infections of the skin and subcutaneous tissue] 11-22-2023 Episodic Spondylosis; intervertebral disc disorders; other back problems (1 source) Neck pain; Translations: [Cervicalgia] Episodic Substance-related disorders (20 sources) Nicotine dependence, unspecified, uncomplicated; Translations: [Nicotine dependence, cigarettes, uncomplicated] Onset: 09-22-2017 02-10-2022 Chronic Thyroid disorders (20 sources) Goiter; Translations: [Iodine-deficiency related diffuse (endemic) goiter] Onset: 09-09-2022 Chronic Unclassified (2 sources) CROHNS DISEASE UNS W/O COMP / K50.90(ICD-10) Onset: 01-17-2017 Unclassified (1 source) ACQ ABSENCE OTH PART DIGESTV TRACT / Z90.49(ICD-10) Onset: 01-17-2017 Unclassified (1 source) TOBACCO USE / Z72.0(ICD-10) Onset: 01-17-2017 Unclassified (1 source) OTH SENIOR CARE CURRENT DRUG THERAPY / Z79.899(ICD-10) Onset: 01-17-2017 Unclassified (3 sources) Diseases of the nervous sys comp , first trimester; Translations: [Diseases of the nervous sys comp , first trimester] Onset: 09-21-2017 Unclassified (1 source) Diseases of the dgstv sys comp , first trimester Onset: 09-22-2017 Unclassified (1 source) Diseases of the circ sys comp , first trimester Onset: 09-22-2017 Unclassified (1 source) Smoking (tobacco) complicating , first trimester Onset: 09-22-2017 Unclassified (1 source) 12 weeks gestation of Onset: 09-22-2017 Unclassified (1 source) Long-term use of immunosuppressant medication; Translations: [Long-term use of immunosuppressant medication] Onset: 06-18-2024 Past or Other Problems Problem Classification Problem Date Documented Da te Episodic/Chronic Cancer of cervix (20 sources) Atypical squamous cells of undetermined significance on cervical Papanicolaou smear; Translations: [Atypical squamous cells of undetermined significance on cytologic smear of cervix (ASC-US)] Onset: 05-23-2018 06-22-2018 Episodic Intestinal obstruction without hernia (20 sources) Small bowel obstruction; Translations: [Unspecified intestinal obstruction, unspecified as to partial versus complete obstruction] Onset: 02-06-2022 Resolved: 10-31-2023 Episodic Nonspecific chest pain (20 sources) Chest pain; Translations: [Chest pain, unspecified] Onset: 09-09-2022 Resolved: 10-31-2023 09-09-2022 Episodic Other circulatory disease (1 source) Hypotension, unspecified Onset: 09-22-2017 Episodic Other complications of (1 source) Diseases of the digestive system complicating , unspecified trimester; Translations: [Diseases of the dgstv sys comp , unsp trimester] Onset: 10-09-2017 Episodic Other gastrointestinal disorders (20 sources) Personal history of other diseases of the digestive system; Translations: [Personal history of other diseases of digestive system] Onset: 10-31-2023 10-31-2023 Episodic Other nervous system disorders (1 source) Personal history of other diseases of the nervous system and sense organs; Translations: [Personal history of dis of the nervous sys and sense organs] Onset: 10-09-2017 Episodic Residual codes; unclassified (1 source) Personal history of other complications of , childbirth and the puerperium; Translations: [Personal history of comp of preg, chldbrth and the puerp] Onset: 10-09-2017 Episodic Residual codes; unclassified (20 sources) History of excision of small intestine; Translations: [Acquired absence of other specified parts of digestive tract] Onset: 09-16-2022 09-18-2022 Episodic Residual codes; unclassified (1 source) Acquired absence of other specified parts of digestive tract; Translations: [S/P small bowel resection] Onset: 09-18-2022 Episodic Sexually transmitted infections (not HIV or hepatitis) (1 source) Cervical high risk human papillomavirus (HPV) DNA test positive; Translations: [Atypical squamous cell changes of undetermined significance (ASCUS) on cervical cytology with positive high risk human papilloma virus (HPV)] Onset: 06-22-2018 Episodic Unclassified (1 source) CROHNS DISEASE UNS W/O COMP; Translations: [CROHNS DISEASE UNS W/O COMP] Onset: 01-12-2017 Results Test Name Value Interpretation Reference Range Facility C. trachomatis+N. gonorrhoea e DNA OBDULIA+probe Ql (Unsp spec)on 06-19-2024 C. trachomatis rRNA OBDULIA+probe Ql (Unsp spec) Not detected Not detected [facility] Interpretation and review of laboratory results Normal [facility] N. gonorrhoeae rRNA OBDULIA+probe Ql (Unsp spec) Not detected Not detected [facility] This FDA-approved as say has been modified to accept rectal swabs self-collected in a healthcare setting. For self-collected rectal swabs, the test was developed and its performance characteristics determined by the [facility]'s [facility] [place] ([facility] It has not been cleared or approved by the FDA. -[facility] is regulated under CLIA as qualified to perform high-complexity testing. This test is used for clinical purposes. It should not be regarded as investigational or for research. [facility] C. trachomatis+N. gonorrhoea e DNA OBDULIA+probe Ql (Unsp spec)on 06-18-2024 C. trachomatis rRNA OBDULIA+probe Ql (Unsp spec) Not detected Normal Not detected [facility] Comment on above: Order Comment: Speci men Type: BLOOD SPECIMEN Ordering Facility: [facility] Address: [address] [place] [address] Performed By: #### 2 132-9, 1987-06 #### [facility] CLIA [id number] [address] [place] [address] STATES OF [facility] N. gonorrhoeae rRNA OBDULIA+probe Ql (Unsp spec) Not detected Normal Not detected [facility] Comment on above: Order Comment: Speci men Type: BLOOD SPECIMEN Ordering Facility: [facility] Address: [address] [place] [address] Performed By: #### 2 132-9, 1987-06 #### [facility] CLIA [id number] [address] [place] [address] OF THIERRY CNOVon 06-18-2024 CNOV Office Visit (OBAIMEEWM ) -- ALY SOLORIO ([id number]) 1990 F Date Time Provider Department 06/18/24 3:00 PM RAKEL LOVE During your visit today, we recorded the following information about you: Blood pressure Weight Height 112/71 68.5 kg 1.505 m Rakel Love APRN.CNP 06/18/2024 3:48 PM Signed Aly is a 33 year old who presents for an annual gynecologic exam without complaints. Menses: None with Depo Contraception:Depo Provera HPV vaccine: Yes Last Pap: normal HPV: 12/15/2021 neg History of abnormal pap: Yes 2019 Colposcopy benign - Pap ASCUS HPV positive Last mammogram: never Sexually active: Yes History of STDS: HPV Patient concerns for STD exposure: No. Documentation from previous visit of 12/15/2022 was copied and pasted, documentation has been reviewed and edited as necessary for today's visit OB History Gravida2 Para1 Term1 Preterm0 AB0 Living2 SAB0 IAB0 Ectopic0 Multiple0 Live Births2 Comment: Gave first baby up for adoption FAMILY HISTORY Adopted: Yes Problem Relation Age of Onset Cancer Father Lung SOCIAL HISTORY Social History Tobacco Use Smoking status: Former Current packs/day: 0.00 Types: Cigarettes Quit date: 2019 Years since quittin.3 Smokeless tobacco: Never Vaping Use Vaping status: current everyday user Substances: Nicotine Devices: PushSpringble tank Substance Use Topics Alcohol use: Yes Comment: occasional Drug use: Never REVIEW OF SYSTEMS Abdomen: No abdominal pain, nausea, vomiting, diarrhea, or constipation. No bloating, early satiety, indigestion, or increased flatulence. Bladder: No dysuria, gross hematuria, urinary frequency, urinary urgency, or incontinence. Breast: No breast lumps, nipple d/c, overlying skin changes, redness or skin retraction. Allergies and current medication updated:Yes SENSITIVE EXAM: The sensitive examination was discussed with the Patient or Patient's Authorized Beet Flumer. As applicable, any other physician, advance practice provider, medical student, or other health professional student that will be observing or involved in the sensitive examination for educational or training purposes was discussed with the Patient or Authorized Beet Flumer. The Patient or Authorized Beet Flumer has agreed to proceed with the sensitive examination. (Sensitive examination includes inspection and/or palpation of the breasts, pelvis, prostate and anorectal regions). EXAM: BP 112/71 Ht 4' 11.25 (1.51m) Wt 151 lb (68.5kg) LMP 04/04/2023 BMI 30.24 kg/(m2). GENERAL: pleasant, female in no apparent distress HEENT: Normocephalic, atraumatic, mucus membranes moist, and no lesions NECK: Supple, full range of motion, no adenopathy, and thyroid normal DERMATOLOGY: Normal, without lesions, non-icteric, and non-hirsute BREAST: soft, non-tender, symmetric, no dominant mass, normal nipple-areolar complex, no lymphadenopathy, and no nipple discharge CHEST: Normal inspiratory effort ABDOMEN: soft, non-tender, and no masses PELVIC: external genitalia normal, normal Bartholin's glands, urethra, Loomis's glands, no vulvar lesions, no cervical lesions, physiologic discharge present, normal appearing perineal body and perianal region BIMANUAL: uterus normal size, shape and consistency, no adnexal masses, and non-tender RECTOVAGINAL: deferred. NEURO: alert and oriented x3,exam grossly non-focal EXTREMITIES: normal ASSESSMENT/PLAN: 1) Health maintenance: Pap done with HPV. Due every 3 years due to immunosuppressant medication. Nutrition, exercise and routine health maintenance exams reviewed. Calcium/Vitamin D supplementation information provided. Smoking cessation: Benefits of smoking cessation reviewed. Patient encouraged to avoid smoking. HPV vaccine: completed series 2) Contraception: Depo Provera. Contraceptive options reviewed and information provided. Encouraged calcium/vitamin D/weightbearing exercise/smoking cessation. 3) STD screening: Accepted STD check for Gonorrhea and Chlamydia. 4) Follow up one year or sooner as needed Rakel Love APRN.Rakel Watson APRN.AR 06/18/2024 3:37 PM Signed Calcium and Vitamin D Supplementation (from the National Institutes of Health Office of Dietary Supplements 2010) Calcium 1200 mg daily - 600 mg twice a day if taking supplement and Vit D 800-1000 IU daily Calcium is required by the body for blood vessel, muscle, hormone and nerve functioning. Most of the body's calcium is stored in the bones and teeth where it supports structure and function. Bone is continuously broken down and reformed. When bone breakdown exceeds formation, especially in postmenopausal women, bone loss can increase the risk of osteoporosis and fractures. In addition to low calcium intake, women who smoke, have a family history of osteoporosis, (more content not included)... [facility] LYNDSEYALY ([id number]) 1990 F Date Time Provider Department 06/18/24 ROQUE POPE [facility] During your visit today, we recorded the following information about you: Estephanie Martinez MA 06/18/2024 4:26 PM Signed Type of form: School Application: [facility] EMS Program Form received via fax When form is completed, call patient Form has been forwarded to Physician Desk: WAYNE Reyes Lindsey, MA 06/25/2024 4:47 PM Signed Patient informed ready for pickup. Taken to medical records. Kamila Vila MA Allergies As of Date: 06/18/2024 (No Known Allergies) Date Reviewed: 06/18/2024 Reviewed by: Rakel Love APRN.[facility] - Fully Assessed Reason for Visit: Forms [913] Cmt: EMS [facility] program Prescriptions as of 06/25/2024 - medroxyPROGESTERone (DEPO-PROVERA) 150 mg/mL Inject 1 mL intramuscularly every 12 weeks. Patient should start on August 12, 2024. - risankizumab-rzaa (SKYRIZI) 360 mg/2.4 mL (150 mg/mL) wearable injector Inject 360mg (1 device) subcutaneously every 8 weeks. - ergocalciferol 50,000 unit capsule (VITAMIN D2, DRISDOL) Take 1 capsule by mouth one time a week. - venlafaxine ER (EFFEXOR XR) 75 mg 24 hr capsule Take 1 capsule by mouth once daily. Facility-Administered Medications as of 06/25/2024 - medroxyPROGESTERone 150 mg injection (DEPO-PROVERA) - medroxyPROGESTERone 150 mg injection (DEPO-PROVERA) Problem List As Of Date 06/18/2024 Noted Resolved Atypical squamous cell changes of undetermined *05/23/2018 Small bowel obstruction (HCC) [K56.609] 02/06/2022 10/31/2023 Nicotine use disorder, F17.2 [F17.200] 02/08/2022 Crohn's disease (HCC) [K50.90] 10/09/2017 10/31/2023 Diagnosed: 09/09/2022 Chest pain [R07.9] 09/09/2022 10/31/2023 Diagnosed: 09/09/2022 Class 1 obesity due to excess calories with ser*09/09/2022 Anxiety [F41.9] 09/09/2022 Leukocytosis [D72.829] 09/09/2022 Thyromegaly [E01.0] 09/09/2022 S/P small bowel resection [Z90.49] 09/16/2022 Crohn's disease of both small and large intesti*11/23/2022 History of small bowel obstruction [Z87.19] 10/31/2023 Long-term use of immunosuppressant medication [*06/18/2024 Encounter Status:Closed by KAMILA VILA on 06/25/24 Normal [facility] HIGH RISK HUMAN PAPILLOMA FANI (HPV), PCR FOR DETECTION AND GENOTYPINGon 06-18-2024 HPV 16 Ag Ql (Unsp spec) Not detected Normal Not detected [facility] Comment on above: Order Comment: Speci men Type: BLOOD SPECIMEN Ordering Facility: [facility] Address: [address] [place] [address] Performed By: #### 2 1987-06 #### [facility] CLIA [id number] [address] [place] [address] [place] HPV 18 Ag Ql (Unsp spec) Not detected Normal Not detected [facility] Comment on above: Order Comment: Speci men Type: BLOOD SPECIMEN Ordering Facility: [facility] Address: [address] [place] [address] Performed By: #### 2 1321987-06 #### [facility] CLIA [id number] [address] [place] [address] [place] HPV 31+33+35+39+45+51+52 +56+58+59+66+68 DNA OBDULIA+probe Ql (Cvx) Detected Abnormal Not detected [facility] Comment on above: Order Comment: Speci men Type: BLOOD SPECIMEN Ordering Facility: [facility] Address: [address] [place] [address] Result Comment: High Risk HPV Other Type includes HPV types 31, 33, 35, 39, 45, 51, 52, 56, 58, 59, 66 and 68. Performed By: #### 2 132-9, 1987-06 #### [facility] CLIA [id number] [address] [place] [address] [place] PAP TESTon 06-18-2024 ADEQUACY Normal [facility] Comment on above: Order Comment: Speci men Type: BLOOD SPECIMEN Ordering Facility: [facility] Address: [address] [place] [address] Result Comment: Sati sfactory for interpretation. Transformation zone present Performed By: #### 2 1329, 1987-06 #### [facility] CLIA [id number] [address] [place] [address] [place] CASE REPORT Normal [facility] Comment on above: Order Comment: Speci men Type: BLOOD SPECIMEN Ordering Facility: [facility] Address: [address] [place] [address] Result Comment: Gyne cologic Cytology Report Case: [id number] Authorizing Provider: Rakel Love APRN.[employer] Collected: 06/18/2024 03:58 PM Ordering Location: OB/Gynecology Received: 06/18/2024 04:34 PM First Screen: Loni Elam, YUMIKO, ASCP Pathologist: Ana Hoff MD Specimen: Pap Test, ThinPrep, Cervix Performed By: #### 2 132-9, 1987-06 #### [facility] CLIA [id number] [address] [place] [address] [place] CLINICAL HISTORY, CYTOLOGY, KNIFE MACHINE OPERATOR Previous ASCUS Normal [facility] Comment on above: Order Comment: Speci men Type: BLOOD SPECIMEN Ordering Facility: [facility] Address: [address] [place] [address] Result Comment: Posi tive HPV Performed By: #### 2 132-9, 1987-06 #### [facility] CLIA [id number] [address] [place] [address] [place] FINAL PERFORMING LAB Normal [facility] Comment on above: Order Comment: Speci men Type: BLOOD SPECIMEN Ordering Facility: [facility] Address: [address] [place] [address] Result Comment: Tech nical component, bicycle messenger screening performed at [facility], [address] [place] [address] CLIA# [id number] Diagnostic interpretation performed at: [facility], [address] [place], [place] [id number] CLIA# [id number] Guardian Family Member: Henry Moreno MD Performed By: #### 2 1329, 1987-06 #### [facility] CLIA [id number] [address] [place] [address] [place] INTERPRETATION, CYTOLOGY, KNIFE MACHINE OPERATOR Abnormal [facility] Comment on above: Order Comment: Speci men Type: BLOOD SPECIMEN Ordering Facility: [facility] Address: [address] [place] [address] Result Comment: Atyp ical squamous cells of undetermined significance (ASC-US). at 0939 EDT Performed By: #### 2 132-9, 1987-06 #### [facility] CLIA [id number] [address] [place] [address] [place] LMP 04/04/2023 Normal [facility] Comment on above: Order Comment: Speci men Type: BLOOD SPECIMEN Ordering Facility: [facility] Address: [address] [place] [address] Result Comment: Comm ent: Depo Provera Performed By: #### 2 1329, 1987-06 #### [facility] CLIA [id number] [address] [place] [address] [place] PAP DISCLAIMER COMMENT The Pap Smear is a screening test for cervical cancer. False negative results occur with all screening tests, emphasizing the need for rescreening at recommended intervals, and clinical correlation. Normal [facility] Comment on above: Order Comment: Speci men Type: BLOOD SPECIMEN Ordering Facility: [facility] Address: [address] [place] [address] Performed By: #### 2 1329, 1987-06 #### [facility] CLIA [id number] [address] [place] [address] [place] PAP GENERAL CATEGORIZATION Epithelial Cell Abnormality Normal [facility] Comment on above: Order Comment: Speci men Type: BLOOD SPECIMEN Ordering Facility: [facility] Address: [address] [place] [address] Performed By: #### 2 1329, 1987-06 #### [facility] CLIA [id number] [address] [place] [address] [place] PAP GRAIN FARMWORKER COMMENT This specimen has be en analyzed by the ThinPrep Imaging System, an automated imaging and review system, which assists the laboratory in evaluating cells on ThinPrep Pap tests. Following automated imaging, selected rider from every slide are reviewed by a bicycle messenger. Normal [facility] Comment on above: Order Comment: Speci men Type: BLOOD SPECIMEN Ordering Facility: [facility] Address: [address] [place] [address] Performed By: #### 2 132-9, 1987-06 #### [facility] CLIA [id number] [address] [place] [address] [place] CNNURSEon 05-23-2024 CNNURSE Nurse Visit (OBGYWM) -- ALY SOLORIO ([id number]) 1990 F Date Time Provider Department 05/23/24 4:00 PM NURSE [facility] During your visit today, we recorded the following information about you: Blood pressure Weight 104/68 69.5 kg Ford Gutierrez RN 05/23/2024 4:06 PM Signed Patient identified by name and date of . Aly Solorio is here for a Depo Provera injection. Patient brought medication. Date last injected: 02/27/2024 Depo-Provera, 150 mg, administered IM right upper quadrant gluteus, Lot # [id number], expiration date 07/27/2025. Depo-Provera was given without incident. Date of last menses: Patient's last menstrual period was 04/04/2023 (approximate). Irregular bleeding - No Menses ceased - Yes Patient instructed to return to clinic in 12 weeks. [email or web address] Provider NBA was present in office at time of injection. Ford Gutierrez RN Allergies As of Date: 05/23/2024 (No Known Allergies) Date Reviewed: 05/23/2024 Reviewed by: Ford Gutierrez RN - Fully Assessed Reason for Visit: Depo Provera Injection [1654] Primary Visit Diagnosis:Depo-Provera contraceptive status [Z30.42] Other Visit Diagnosis:Encounter for surveillance of other contraceptive [Z30.49] Order(s):medroxyPROGESTERo ne 150 mg injection (DEPO-PROVERA)Disp: Rfl: Prescriptions as of 05/23/2024 - medroxyPROGESTERone (DEPO-PROVERA) 150 mg/mL Inject 1 mL intramuscularly every 12 weeks. - risankizumab-rzaa (SKYRIZI) 360 mg/2.4 mL (150 mg/mL) wearable injector Inject 360mg (1 device) subcutaneously every 8 weeks. - ergocalciferol 50,000 unit capsule (VITAMIN D2, ISDOL) Take 1 capsule by mouth one time a week. - venlafaxine ER (EFFEXOR XR) 75 mg 24 hr capsule Take 1 capsule by mouth once daily. Facility-Administered Medications as of 05/23/2024 - medroxyPROGESTERone 150 mg injection (DEPO-PROVERA) Problem List As Of Date 05/23/2024 Noted Resolved Atypical squamous cell changes of undetermined *05/23/2018 Small bowel obstruction (HCC) [K56.609] 02/06/2022 10/31/2023 Nicotine use disorder, F17.2 [F17.200] 02/08/2022 Crohn's disease (HCC) [K50.90] 10/09/2017 10/31/2023 Diagnosed: 09/09/2022 Chest pain [R07.9] 09/09/2022 10/31/2023 Diagnosed: 09/09/2022 Class 1 obesity due to excess calories with ser*09/09/2022 Anxiety [F41.9] 09/09/2022 Leukocytosis [D72.829] 09/09/2022 Thyromegaly [E01.0] 09/09/2022 S/P small bowel resection [Z90.49] 09/16/2022 Crohn's disease of both small and large intesti*11/23/2022 History of small bowel obstruction [Z87.19] 10/31/2023 Prescriptions ordered this encounter Disp Refills Start End MEDROXYPROGESTERONE 150 MG/ML INTRAM* 05/23/2024 04/24/2025 Route: INTRAMUSCULA Disposition: Return in 12 weeks (on 08/15/2024). Follow-up and Disposition History for Encounter Date Provider Department Center 05/23/2024 [id number] *OBJESENIA Lizarraga Encounter Status:Closed by FORD GUTIERREZ on 05/23/24 [facility] CNOVkim 05-20-2024 CNOV Office Visit (FAMPWS ) -- LYNDSEYALY ([id number]) 1990 F Date Time Provider Department 05/20/24 5:20 PM ROQUE POPE During your visit today, we recorded the following information about you: Temperature Pulse Respiration Blood pressure 99 degrees 92/minute 16/minute 110/70 Weight 69.9 kg Roque Pope MD 05/20/2024 5:51 PM Signed Patient presents with: 6 Month Exam HPI: Patient presents today for office visit for follow up. Now on effexor of 75 mg. Overall feels it is working well. Some fatigue. 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 Discussed changing to her am. Moods are good. Not depressed. No issues with appetite or upset stomach. No suicidal ideation. Following with gi. Doing well. Just got started on vit d. MEDICATIONS: Current Outpatient Medications Medication Sig medroxyPROGESTERone (DEPO-PROVERA) 150 mg/mL Inject 1 mL intramuscularly every 12 weeks. risankizumab-rzaa (SKYRIZI) 360 mg/2.4 mL (150 mg/mL) wearable injector Inject 360mg (1 device) subcutaneously every 8 weeks. ergocalciferol 50,000 unit capsule (VITAMIN D2, DRISDOL) Take 1 capsule by mouth one time a week. venlafaxine ER (EFFEXOR XR) 75 mg 24 hr capsule Take 1 capsule by mouth once daily. venlafaxine ER (EFFEXOR XR) 37.5 mg 24 hr capsule Take 2 capsules by mouth once daily. No current facility-administered medications for this visit. ALLERGIES: ALLERGIES No Known Allergies PAST MEDICAL HISTORY Diagnosis Date ASCUS with positive high risk HPV cervical 05/11/2018 Colopscopy benign Crohn disease (HCC) 2000 Small bowel obstruction (HCC) 02/06/2022 PAST SURGICAL HISTORY Procedure Laterality Date SECTION HX 03/29/2018 COLONOSCOPY STOMA W/ENDOSCOPIC MUCOSAL RESCJ 2005 small and large resection PAST SURGICAL HISTORY OF 09/16/2022 Laparoscopic redo ileocolic resection with Kono-S ileocolic anastomosis FAMILY HISTORY Adopted: Yes Problem Relation Age of Onset Cancer Father Lung Social History Tobacco Use Smoking status: Former Current packs/day: 0.00 Types: Cigarettes Quit date: 2019 Years since quittin.2 Smokeless tobacco: Never Vaping Use Vaping status: current everyday user Substances: Nicotine Devices: [employer] Substance Use Topics Alcohol use: Yes Comment: occasional Drug use: Never Reviewed current medications, allergies, past medical history, surgical history, family history and social history today. REVIEW OF SYSTEMS All other reviewed and negative other than HPI. HEALTH MAINTENANCE: Reviewed health maintenance issues today and recommended the following in detail. Depression Screening Never done VITALS: BP 110/70 Pulse 92 Temp 37.2 ?C (99 ?F) (Right Tympanic) Resp 16 Wt 69.9 kg (154 lb) LMP 04/04/2023 (Approximate) BMI 30.64 kg/m? Last 4 Encounter Wt Readings: Date: Wt: 02/27/2024 71.2 kg (157 lb) 11/22/2023 67.6 kg (149 lb 0.5 oz) 10/31/2023 69.9 kg (154 lb 3.2 oz) 10/17/2023 69.9 kg (154 lb) PHYSICAL EXAMINATION: General appearance: Well appearing, alert, in no acute distress, well-hydrated, well nourished. Skin: Skin color, texture, turgor normal, no suspicious rashes or lesions Head: Normocephalic, no masses, lesions, tenderness or abnormalities Lungs: Lungs clear to auscultation. No wheezing, rhonchi, rales Heart: RRR without murmur, gallop, or rubs. No ectopy Abdomen: Normal abdominal exam, Abdomen soft, non-tender. Bowel sounds normal. No masses, organomegaly Extremities: No deformities, edema, skin discoloration, clubbing or cyanosis. Good capillary refill. ASSESSMENT/PLAN: 1. Crohn's disease of both small and large intestine with complication (HCC) - ICD9: 555.2, ICD10: K50.819 (primary diagnosis) - per gi. 2. Anxiety - ICD9: 300.00, ICD10: F41.9 - Continue current medications. Notify us if any difficulties are noted. Stay on effexor. 3. Screening for depression - ICD9: V79.0, ICD10: Z13.31 - DEPRESSION SCREENING Roque Pope MD Allergies As of Date: 05/20/2024 (No Known Allergies) Date Reviewed: 05/20/2024 Reviewed by: Estephanie Martinez MA - Fully Assessed Reason for Visit: 6 Month Exam [189] Primary Visit Diagnosis:Crohn's disease of both small and large intestine with complication (HCC) [K50.819] Other Visit Diagnoses:Anxiety [F41.9] Screening for depression [Z13.31] Order(s):DEPRESSION SCREENING [[id number]] Order #: [id number]: 1 Prescriptions as of 05/20/2024 - medroxyPROGESTERone (DEPO-PROVERA) 150 mg/mL Inject 1 mL intramuscularly every 12 weeks. - risankizumab-rzaa (SKYRIZI) 360 mg/2.4 mL (150 mg/mL) wearable injector Inject 360mg (1 device) subcutaneously every 8 weeks. - ergocalciferol 50,000 unit capsule (VITAMIN D2, DRISDOL) Take 1 capsule by mouth one time a week. - venlafaxine ER (EFFEXOR XR) 75 mg 24 hr capsule Take 1 capsule by mouth once daily. (more content not included)... Normal [facility] 25(OH)D3 SerPl-mCncon 2024 25-hydroxyvitamin D3 [Mass/Vol] 13.1 ng/mL Low 31.0-80.0 [facility] Comment on above: Order Comment: Missy cantor Type: BLOOD SPECIMENOrdering Facility: [facility] Address: [address] [place] [address] Result Comment: Clas sification of 25 OH Vitamin D status: Deficiency/Insufficiency: < or = 30 ng/ml. Sufficiency/Optimal Levels: 31-80 ng/mL Toxicity: > 100 ng/mL. Test performed by chemiluminescent immunoassay. Performed By: #### 1 989-3 ####[facility]IA [id number] [place] [address] [place] BLOOD TB SCREENon 04-22-2024 M. tuberculosis tuberculin stim IFN-g Ql (Bld) Negative Normal [facility] Comment on above: Order Comment: Missy cantor Type: BLOOD SPECIMEN Ordering Facility: [facility] Address: [address] [place] [address] Performed By: #### 2 1329, 1987-06 #### [facility] CLIA [id number] [address] [place] [address] [place] MITOGEN MINUS NIL >9.92 Normal >=0.50 [facility] Comment on above: Order Comment: Speci men Type: BLOOD SPECIMEN Ordering Facility: [facility] Address: [address] [place] [address] Performed By: #### 2 132, 1987-06 #### [facility] CLIA [id number] [address] [place] [address] OF [place] TB GAMMA INTERPRETATION Infection with M. tuberculosis complex is unlikely. If latent tuberculosis infection is highly suspected, a negative result does not rule out the infection. Specimens from immunocompromised patients and those <5 years of age may show false negative results. In case of a contact investigation, please repeat 8-12 weeks after a known exposure. Normal [facility] Comment on above: Order Comment: Speci men Type: BLOOD SPECIMEN Ordering Facility: [facility] Address: [address] [place] [address] Performed By: #### 2 132, 1987-06 #### [facility] CLIA [id number] [address] [place] [address] OF [facility] TB NIL 0.08 IU/mL Normal <=8.00 [facility] Comment on above: Order Comment: Speci men Type: BLOOD SPECIMEN Ordering Facility: [facility] Address: [address] [place] [address] Performed By: #### 2 1329, 1987-06 #### [facility] CLIA [id number] [address] [place] [address] [place] TB1 AG MINUS NIL 0.00 IU/mL Normal <0.35 [facility] Comment on above: Order Comment: Speci men Type: BLOOD SPECIMEN Ordering Facility: [facility] Address: [address] [place] [address] Performed By: #### 2 132, 1987-06 #### [facility] CLIA [id number] [address] [place] [address] [place] TB2 AG MINUS NIL 0.02 IU/mL Normal <0.35 [facility] Comment on above: Order Comment: Speci men Type: BLOOD SPECIMEN Ordering Facility: [facility] Address: [address] [place] [address] Performed By: #### 2 132, 1987-06 #### [facility] CLIA [id number] [address] [place] [address] [place] CBC W Auto Differential pane l (Bld)on 04-22-2024 Basophils (Bld) [#/Vol] 10*3/uL Normal <0.11 [facility] Comment on above: Order Comment: Speci men Type: BLOOD SPECIMEN Ordering Facility: [facility] Address: [address] [place] [address] Performed By: #### 2 132, 1987-06 #### [facility] CLIA [id number] [address] [place] [address] [place] Basophils/100 WBC (Bld) 0.2 % Normal [facility] Comment on above: Order Comment: Speci men Type: BLOOD SPECIMEN Ordering Facility: [facility] Address: [address] [place] [address] Performed By: #### 2 132, 1987-06 #### [facility] CLIA [id number] [address] [place] [address] [place] Differential cell count method Nom (Bld) Auto Normal [facility] Comment on above: Order Comment: Speci men Type: BLOOD SPECIMEN Ordering Facility: [facility] Address: [address] [place] [address] Performed By: #### 2 132, 1987-06 #### [facility] CLIA [id number] [address] [place] [address] [place] Eosinophils (Bld) [#/Vol] 0.10 10*3/uL Normal <0.46 [facility] Comment on above: Order Comment: Speci men Type: BLOOD SPECIMEN Ordering Facility: [facility] Address: [address] [place] [address] Performed By: #### 2 132, 1987-06 #### [facility] CLIA [id number] [address] [place] [address] [place] Eosinophils/100 WBC (Bld) 1.2 % Normal [facility] Comment on above: Order Comment: Speci men Type: BLOOD SPECIMEN Ordering Facility: [facility] Address: [address] [place] [address] Performed By: #### 2 132, 1987-06 #### [facility] CLIA [id number] [address] [place] [address] [place] Erythrocyte distribution width (RBC) [Ratio] 13.2 % Normal 11.5-15.0 [facility] Comment on above: Order Comment: Speci men Type: BLOOD SPECIMEN Ordering Facility: [facility] Address: [address] [place] [address] Performed By: #### 2 132, 1987-06 #### [facility] CLIA [id number] [address] [place] [address] [place] Hematocrit (Bld) [Volume fraction] 42.5 % Normal 36.0-46.0 [facility] Comment on above: Order Comment: Speci men Type: BLOOD SPECIMEN Ordering Facility: [facility] Address: [address] [place] [address] Performed By: #### 2 132, 1987-06 #### [facility] CLIA [id number] [address] [place] [address] [place] Hemoglobin (Bld) [Mass/Vol] 13.9 g/dL Normal 11.5-15.5 [facility] Comment on above: Order Comment: Speci men Type: BLOOD SPECIMEN Ordering Facility: [facility] Address: [address] [place] [address] Performed By: #### 2 132, 1987-06 #### [facility] CLIA [id number] [address] [place] [address] [place] Immature granulocytes (Bld) [#/Vol] 10*3/uL Normal <0.10 [facility] Comment on above: Order Comment: Speci men Type: BLOOD SPECIMEN Ordering Facility: [facility] Address: [address] [place] [address] Performed By: #### 2 132, 1987-06 #### [facility] CLIA [id number] [address] [place] [address] [place] Immature granulocytes/100 WBC (Bld) 0.2 % Normal [facility] Comment on above: Order Comment: Speci men Type: BLOOD SPECIMEN Ordering Facility: [facility] Address: [address] [place] [address] Performed By: #### 2 , 1987-06 #### [facility] CLIA [id number] [address] [place] [address] [place] Lymphocytes (Bld) [#/Vol] 2.60 10*3/uL Normal 1.00-4.00 [facility] Comment on above: Order Comment: Speci men Type: BLOOD SPECIMEN Ordering Facility: [facility] Address: [address] [place] [address] Performed By: #### 2 132, 1987-06 #### [facility] CLIA [id number] [address] [place] [address] [place] Lymphocytes/100 WBC (Bld) 32.1 % Normal [facility] Comment on above: Order Comment: Speci men Type: BLOOD SPECIMEN Ordering Facility: [facility] Address: [address] [place] [address] Performed By: #### 2 132, 1987-06 #### [facility] CLIA [id number] [address] [place] [address] [place] MCH (RBC) [Entitic mass] 27.7 pg Normal 26.0-34.0 [facility] Comment on above: Order Comment: Speci men Type: BLOOD SPECIMEN Ordering Facility: [facility] Address: [address] [place] [address] Performed By: #### 2 , 1987-06 #### [facility] CLIA [id number] [address] [place] [address] [place] MCHC (RBC) [Mass/Vol] 32.7 g/dL Normal 30.5-36.0 [facility] Comment on above: Order Comment: Speci men Type: BLOOD SPECIMEN Ordering Facility: [facility] Address: [address] [place] [address] Performed By: #### 2 132, 1987-06 #### [facility] CLIA [id number] [address] [place] [address] [place] MCV (RBC) [Entitic vol] 84.7 fL Normal 80.0-100.0 [facility] Comment on above: Order Comment: Speci men Type: BLOOD SPECIMEN Ordering Facility: [facility] Address: [address] [place] [address] Performed By: #### 2 , 1987-06 #### [facility] CLIA [id number] [address] [place] [address] [place] Monocytes (Bld) [#/Vol] 0.40 10*3/uL Normal <0.87 [facility] Comment on above: Order Comment: Speci men Type: BLOOD SPECIMEN Ordering Facility: [facility] Address: [address] [place] [address] Performed By: #### 2 132, 1987-06 #### [facility] CLIA [id number] [address] [place] [address] [place] Monocytes/100 WBC (Bld) 4.9 % Normal [facility] Comment on above: Order Comment: Speci men Type: BLOOD SPECIMEN Ordering Facility: [facility] Address: [address] [place] [address] Performed By: #### 2 1329, 1987-06 #### [facility] CLIA [id number] [address] [place] [address] [place] Neutrophils (Bld) [#/Vol] 4.96 10*3/uL Normal 1.45-7.50 [facility] Comment on above: Order Comment: Speci men Type: BLOOD SPECIMEN Ordering Facility: [facility] Address: [address] [place] [address] Performed By: #### 2 132-9, 1987-06 #### [facility] CLIA [id number] [address] [place] [address] [place] Neutrophils/100 WBC (Bld) 61.4 % Normal [facility] Comment on above: Order Comment: Speci men Type: BLOOD SPECIMEN Ordering Facility: [facility] Address: [address] [place] [address] Performed By: #### 2 132, 1987-06 #### [facility] CLIA [id number] [address] [place] [address] [place] Nucleated RBC (Bld) [#/Vol] 10*3/uL Normal <0.01 [facility] Comment on above: Order Comment: Speci men Type: BLOOD SPECIMEN Ordering Facility: [facility] Address: [address] [place] [address] Performed By: #### 2 1329, 1987-06 #### [facility] CLIA [id number] [address] [place] [address] [place] Nucleated RBC/100 WBC (Bld) [Ratio] 0.0 /100 WBC Normal [facility] Comment on above: Order Comment: Speci men Type: BLOOD SPECIMEN Ordering Facility: [facility] Address: [address] [place], [place] [address] Performed By: #### 2 132-9, 1987-06 #### [facility] CLIA [id number] [address] [place], [place] [id number] [place] Platelet mean volume (Bld) [Entitic vol] 8.7 fL Low 9.0-12.7 [facility] Comment on above: Order Comment: Speci men Type: BLOOD SPECIMEN Ordering Facility: [facility] Address: [address] [place] [address] Performed By: #### 2 132-9, 1987-06 #### [facility] CLIA [id number] [address] [place] [address] [place] Platelets (Bld) [#/Vol] 277 10*3/uL Normal 150-400 [facility] Comment on above: Order Comment: Speci men Type: BLOOD SPECIMEN Ordering Facility: [facility] Address: [address] [place] [address] Performed By: #### 2 132-9, 1987-06 #### [facility] CLIA [id number] [address] [place] [address] [place] RBC (Bld) [#/Vol] 5.02 10*6/uL Normal 3.90-5.20 [facility] Comment on above: Order Comment: Speci men Type: BLOOD SPECIMEN Ordering Facility: [facility] Address: [address] [place], [place] [address] Performed By: #### 2 132-9, 1987-06 #### [facility] CLIA [id number] [address] [place] [address] [place] WBC (Bld) [#/Vol] 8.10 10*3/uL Normal 3.70-11.00 [facility] Comment on above: Order Comment: Speci men Type: BLOOD SPECIMEN Ordering Facility: [facility] Address: [address] [place], [place] [address] Performed By: #### 2 132-9, 1987-06 #### [facility] CLIA [id number] [address] [place], [place] [address] [place] [id number] [place] CRP SerPl-mCncon 04-22-2024 CRP [Mass/Vol] mg/L Normal <0.9 [facility] Comment on above: Order Comment: Speci men Type: BLOOD SPECIMEN Ordering Facility: [facility] Address: [address] [place] [address] Performed By: #### 2 132-9, 1987-06 #### [facility] CLIA [id number] [address] [place] [address] [place] Comprehensive metabolic 2000 panelon 04-22-2024 Albumin [Mass/Vol] 4.4 g/dL Normal 3.9-4.9 [facility] Comment on above: Order Comment: Speci men Type: BLOOD SPECIMEN Ordering Facility: [facility] Address: [address] [place] [address] Performed By: #### 2 4323-8 #### [facility] CLIA [id number] [address] [place] [address] [place] ALP [Catalytic activity/Vol] 64 U/L Normal 34-123 [facility] Comment on above: Order Comment: Speci men Type: BLOOD SPECIMEN Ordering Facility: [facility] Address: [address] [place], [place] [address] Performed By: #### 2 4323-8 #### [facility] CLIA [id number] [address] [place] [address] [place] ALT [Catalytic activity/Vol] 36 U/L Normal 7-38 [facility] Comment on above: Order Comment: Speci men Type: BLOOD SPECIMEN Ordering Facility: [facility] Address: [address] [place] [address] Performed By: #### 2 4323-8 #### [facility] CLIA [id number] [address] [place] [address] [place] Anion gap [Moles/Vol] 13 mmol/L Normal 8-15 [facility] Comment on above: Order Comment: Speci men Type: BLOOD SPECIMEN Ordering Facility: [facility] Address: [address] [place] [address] Performed By: #### 2 4323-8 #### [facility] CLIA [id number] [address] [place] [address] [place] AST [Catalytic activity/Vol] 23 U/L Normal 13-35 [facility] Comment on above: Order Comment: Speci men Type: BLOOD SPECIMEN Ordering Facility: [facility] Address: [address] [place] [address] Performed By: #### 2 4323-8 #### [facility] CLIA [id number] [address] [place] [address] [place] Bilirubin [Mass/Vol] 0.4 mg/dL Normal 0.2-1.3 [facility] Comment on above: Order Comment: Speci men Type: BLOOD SPECIMEN Ordering Facility: [facility] Address: [address] [place] [address] Performed By: #### 2 4323-8 #### [facility] CLIA [id number] [address] [place] [address] [place] Calcium [Mass/Vol] 9.3 mg/dL Normal 8.5-10.2 [facility] Comment on above: Order Comment: Speci men Type: BLOOD SPECIMEN Ordering Facility: [facility] Address: [address] [place] [address] Performed By: #### 2 4323-8 #### [facility] CLIA [id number] [address] [place] [address] [place] Chloride [Moles/Vol] 110 mmol/L High 98-107 [facility] Comment on above: Order Comment: Speci men Type: BLOOD SPECIMEN Ordering Facility: [facility] Address: [address] [place], [place] [address] Performed By: #### 2 4323-8 #### [facility] [id number] [address] [place] [address] [place] CO2 [Moles/Vol] 19 mmol/L Low 22-30 [facility] Comment on above: Order Comment: Speci men Type: BLOOD SPECIMEN Ordering Facility: [facility] Address: [address] [place] [address] Performed By: #### 2 4323-8 #### [facility] CLIA [id number] [address] [place] [address] [place] Creatinine [Mass/Vol] 0.87 mg/dL Normal 0.58-0.96 [facility] Comment on above: Order Comment: Speci men Type: BLOOD SPECIMEN Ordering Facility: [facility] Address: [address] [place] [address] Performed By: #### 2 4323-8 #### [facility] [id number] [address] [place] [address] OF [facility] Creatinine and Glomerular filtration rate.predicted panel (S/P/Bld) 91 mL/min/1.73m??? Normal >=60 [facility] Comment on above: Order Comment: Speci men Type: BLOOD SPECIMEN Ordering Facility: [facility] Address: [address] [place] [address] Result Comment: Evelin mated Glomerular Filtration Rate (eGFR) is calculated using the 2020 CKD-EPI creatinine equation. This equation utilizes serum creatinine, sex, and age as parameters. The creatinine assay has traceable calibration to isotope dilution-mass spectrometry. Refer to KDIGO guidelines for clinical interpretation. In patients with unstable renal function, e.g. those with acute kidney injury, the eGFR may not accurately reflect actual GFR. Performed By: #### 2 4323-8 #### [id number] [address] [place] [address] [place] Glucose [Mass/Vol] 93 mg/dL Normal 74-99 [facility] Comment on above: Order Comment: Missy cantor Type: BLOOD SPECIMEN Ordering Facility: [facility] Address: [address] [place] [address] Result Comment: The [place] Diabetes Association (ADA) provides guidance for cutoff values for fasting glucose and random glucose. The ADA defines fasting as no caloric intake for at least 8 hours. Fasting plasma glucose results between 100 to 125 mg/dL indicate increased risk for diabetes (prediabetes). Fasting plasma glucose results greater than or equal to 126 mg/dL meet the criteria for diagnosis of diabetes. In the absence of unequivocal hyperglycemia, results should be confirmed by repeat testing. In a patient with classic symptoms of hyperglycemia or hyperglycemic crisis, random plasma glucose results greater than or equal to 200 mg/dL meet the criteria for diagnosis of diabetes. Reference: Standards of Medical Care in Diabetes 2016, [place] Diabetes Association. Diabetes Care. 2016.39(Suppl 1). Performed By: #### 2 4323-8 #### [facility] CLIA [id number] [address] [place] [address] [place] Potassium [Moles/Vol] 3.9 mmol/L Normal 3.7-5.1 [facility] Comment on above: Order Comment: Missy cantor Type: BLOOD SPECIMEN Ordering Facility: [facility] Address: [address] [place] [address] Performed By: #### 2 4323-8 #### [facility] CLIA [id number] [address] [place] [address] [place] Protein [Mass/Vol] 6.8 g/dL Normal 6.3-8.0 [facility] Comment on above: Order Comment: Missy cantor Type: BLOOD SPECIMEN Ordering Facility: [facility] Address: [address] [place] [address] Performed By: #### 2 4323-8 #### [facility] CLIA [id number] [address] [place] [address] [place] Sodium [Moles/Vol] 142 mmol/L Normal 136-144 [facility] Comment on above: Order Comment: Speci men Type: BLOOD SPECIMEN Ordering Facility: [facility] Address: [address] [place] [address] Performed By: #### 2 4323-8 #### [facility] CLIA [id number] [address] [place] [address] [place] Urea nitrogen [Mass/Vol] 5 mg/dL Low 7-21 [facility] Comment on above: Order Comment: Speci men Type: BLOOD SPECIMEN Ordering Facility: [facility] Address: [address] [place] [address] Performed By: #### 2 4323-8 #### [facility] CLIA [id number] [address] [place] [address] [place] Vit B12 [facility] 025 Cobalamin (Vitamin B12) [Mass/Vol] 227 pg/mL Low 232-1245 [facility] Comment on above: Order Comment: Speci men Type: BLOOD SPECIMEN Ordering Facility: [facility] Address: [address] [place] [address] Performed By: #### 2 132-9, 1987-06 #### [facility] CLIA [id number] [address] [place] [address] [place] Dane [facility] ALY SOLORIO ([id number]) 1990 F Date Time Provider Department 04/17/24 ROQUE POPE [facility] During your visit today, we recorded the following information about you: Ford Brower LPN 04/17/2024 1:07 PM Signed No show letter #1 Allergies As of Date: 04/17/2024 (No Known Allergies) Date Reviewed: 02/27/2024 Reviewed by: Kamila Long RN - Fully Assessed Reason for Visit: Letter [264] Cmt: No show letter Prescriptions as of 04/17/2024 - venlafaxine ER (EFFEXOR XR) 75 mg 24 hr capsule Take 1 capsule by mouth once daily. - venlafaxine ER (EFFEXOR XR) 37.5 mg 24 hr capsule Take 2 capsules by mouth once daily. - risankizumab-rzaa (SKYRIZI) 360 mg/2.4 mL (150 mg/mL) wearable injector Inject 360mg (1 device) subcutaneously every 8 weeks. - medroxyPROGESTERone (DEPO-PROVERA) 150 mg/mL Inject 1 mL intramuscularly every 12 weeks. 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 Make sure is aware it is at that location. Ford Brower LPN 04/10/2024 12:11 PM Signed Rescheduled. Allergies As of Date: 04/10/2024 (No Known Allergies) Date Reviewed: 02/27/2024 Reviewed by: Kamila Long, CORTNEY - Fully Assessed Reason for Visit: Patient Update [1234] Prescriptions as of 04/10/2024 - venlafaxine ER (EFFEXOR XR) 37.5 mg 24 hr capsule Take 2 capsules by mouth once daily. - risankizumab-rzaa (SKYRIZI) 360 mg/2.4 mL (150 mg/mL) wearable injector Inject 360mg (1 device) subcutaneously every 8 weeks. - medroxyPROGESTERone (DEPO-PROVERA) 150 mg/mL Inject 1 mL intramuscularly every 12 weeks. 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 Tried to re-submit but denied due to 75 mg is available. Left message on for patient to call back. Please ask if ok with changing rx to 75 mg once daily so insurance will pay. If ok please route to provider to re-send pended rx. WAYNE King [place], MA 04/10/2024 4:13 PM Signed Finally spoke to patient and she is ok with rx 75 mg daily going to pharmacy. Please send Jovita Shelby MA Allergies As of Date: 04/06/2024 (No Known Allergies) Date Reviewed: 02/27/2024 Reviewed by: Kamila Long RN - Fully Assessed Reason for Visit: Insurance Authorization [[id number]] Cmt: venlafaxine ER Order(s):venlafaxine ER (EFFEXOR XR) 75 mg 24 hr capsuleTake 1 capsule by mouth once daily.Disp: 90 capsuleRfl: 3 Prescriptions as of 04/10/2024 - venlafaxine ER (EFFEXOR XR) 75 mg 24 hr capsule Take 1 capsule by mouth once daily. - venlafaxine ER (EFFEXOR XR) 37.5 mg 24 hr capsule Take 2 capsules by mouth once daily. - risankizumab-rzaa (SKYRIZI) 360 mg/2.4 mL (150 mg/mL) wearable injector Inject 360mg (1 device) subcutaneously every 8 weeks. - medroxyPROGESTERone (DEPO-PROVERA) 150 mg/mL Inject 1 mL intramuscularly every 12 weeks. Problem List As Of Date 04/06/2024 Noted Resolved Atypical squamous cell changes of undetermined *05/23/2018 Small bowel obstruction (HCC) [K56.609] 02/06/2022 10/31/2023 Nicotine use disorder, F17.2 [F17.200] 02/08/2022 Crohn's disease (HCC) [K50.90] 10/09/2017 10/31/2023 Diagnosed: 09/09/2022 Chest pain [R07.9] 09/09/2022 10/31/2023 Diagnosed: 09/09/2022 Class 1 obesity due to excess calories with ser*09/09/2022 Anxiety [F41.9] 09/09/2022 Leukocytosis [D72.829] 09/09/2022 Thyromegaly [E01.0] 09/09/2022 S/P small bowel resection [Z90.49] 09/16/2022 Crohn's disease of both small and large intesti*11/23/2022 History of small bowel obstruction [Z87.19] 10/31/2023 Prescriptions ordered this encounter Disp Refills Start End VENLAFAXINE ER 75 MG CAPSULE,EXTENDE* 90 c* 3 04/10/2024 Route: ORAL Sig: Take 1 capsule by mouth once daily. Encounter Status:Closed by [facility] Nurse Visit (OBGYWM) -- ALY SOLORIO ([id number]) 1990 F Date Time Provider Department 02/27/24 2:00 PM NURSE [facility] OBG[facility] During your visit today, we recorded the following information about you: Blood pressure Weight 110/68 71.2 kg Kamila Long RN 02/29/2024 9:01 AM Signed Patient identified by name and date of . Aly Solorio is here for a Depo Provera injection. Patient brought medication. Date last injected: out of range - negative test Depo-Provera, 150 mg, administered IM left upper quadrant gluteus, Lot # [id number], expiration date 07/27/2025. Depo-Provera was given without incident. Date of last menses: Patient's last menstrual period was 04/04/2023 (approximate). Irregular bleeding - No Menses ceased - Yes STD prevention discussed: Yes Patient instructed to return to clinic in 12 weeks. [email or web address] Provider Henrietta Aguilera MD was present in office at time of injection. Kamila Long RN Allergies As of Date: 02/27/2024 (No Known Allergies) Date Reviewed: 02/27/2024 Reviewed by: Kamila Long RN - Fully Assessed Reason for Visit: Depo Provera Injection [5] Primary Visit Diagnosis:Encounter for management and injection of depo-Provera [Z30.42] Order(s):UA DIP,URINE HCG (POC) [[id number]] Order #: [id number]. #:[id number] 2-LAB Prescriptions as of 02/29/2024 - risankizumab-rzaa (SKYRIZI) 360 mg/2.4 mL (150 mg/mL) wearable injector Inject 360mg (1 device) subcutaneously every 8 weeks. - venlafaxine ER (EFFEXOR XR) 37.5 mg 24 hr capsule Take 1 capsule by mouth once daily. For one week and then 2 caps po q day - medroxyPROGESTERone (DEPO-PROVERA) 150 mg/mL Inject 1 mL intramuscularly every 12 weeks. Problem List As Of Date 02/27/2024 Noted Resolved Atypical squamous cell changes of undetermined *05/23/2018 Small bowel obstruction (HCC) [K56.609] 02/06/2022 10/31/2023 Nicotine use disorder, F17.2 [F17.200] 02/08/2022 Crohn's disease (HCC) [K50.90] 10/09/2017 10/31/2023 Diagnosed: 09/09/2022 Chest pain [R07.9] 09/09/2022 10/31/2023 Diagnosed: 09/09/2022 Class 1 obesity due to excess calories with ser*09/09/2022 Anxiety [F41.9] 09/09/2022 Leukocytosis [D72.829] 09/09/2022 Thyromegaly [E01.0] 09/09/2022 S/P small bowel resection [Z90.49] 09/16/2022 Crohn's disease of both small and large intesti*11/23/2022 History of small bowel obstruction [Z87.19] 10/31/2023 Disposition: Return in 12 weeks (on 05/21/2024). Follow-up and Disposition History for Encounter Date Provider Department Center 02/27/2024 [id number] *SINDYGYWM Nella Lizarraga Encounter Status:Closed by KAMILA LONG on 02/29/24 Normal [facility] UA DIP,URINE HCG (POC)on Beta HCG ( test) Ql (U) Negative Negative [facility] Comment on above: Location:[facility], [address], [place], [address] Supervisor Decorating (POCT) Internal QC [facility] Location:[facility], [address], [place], [address] [facility] POINT OF CARE [facility] CNOVon 11-22-2023 CNOV Office Visit (UCWSTR ) -- ALY SOLORIO ([id number]) 1990 F Date Time Provider Department 11/22/23 5:15 PM RANDY BOJORQUEZ [facility] During your visit today, we recorded the following information about you: Temperature Pulse Respiration Blood pressure 98.9 degrees 80/minute 18/minute 128/64 Weight 67.6 kg Randy Bojorquez APRN.[employer] 11/22/2023 5:56 PM Signed Subjective HPI HPI Aly Solorio is a 33 year old female who presents today for CC of left leg sore, has had plant rash for 1 week, one area now painful/swelling. Has tried steroid cream without relief. Symptoms are worsened by nothing. Risk factors recently hiking. Denies possibility of being . .Patient presents with: lower left leg sore: X 1 week PAST MEDICAL HISTORY Diagnosis Date ASCUS with positive high risk HPV cervical 05/11/2018 Colopscopy benign Crohn disease (HCC) 2000 Small bowel obstruction (HCC) 02/06/2022 PAST SURGICAL HISTORY Procedure Laterality Date SECTION HX 03/29/2018 COLONOSCOPY STOMA W/ENDOSCOPIC MUCOSAL RESCJ 2005 small and large resection PAST SURGICAL HISTORY OF 09/16/2022 Laparoscopic redo ileocolic resection with Kono-S ileocolic anastomosis ALLERGIES Patient has no allergy information on record. MEDICATIONS venlafaxine ER (EFFEXOR XR) 37.5 mg 24 hr capsuleTake 1 capsule by mouth once daily. For one week and then 2 caps po q dayDisp: 60 capsuleRfl: 1 risankizumab-rzaa (SKYRIZI) 360 mg/2.4 mL (150 mg/mL) wearable injectorInject 360mg (1 device) subcutaneously every 8 weeks.Disp: 7.2 mLRfl: 0 medroxyPROGESTERone (DEPO-PROVERA) 150 mg/mLInject 1 mL intramuscularly every 12 weeks.Disp: 1 mLRfl: 3 predniSONE (DELTASONE) 10 mg tabletTake 4 tabs daily x 3 days, then 3 tabs x 3 days, 2 tabs x 3 days, then 1 tab x3 days with food.Disp: 30 tabletRfl: 0 cephALEXin (KEFLEX) 500 mg capsuleTake 1 capsule by mouth three times a day for 7 days.Disp: 21 capsuleRfl: 0 FAMILY HISTORY Adopted: Yes Problem Relation Age of Onset Cancer Father Lung Social History Tobacco Use Smoking status: Former Current packs/day: 0.00 Types: Cigarettes Quit date: 2019 Years since quittin.7 Smokeless tobacco: Never Vaping Use Vaping status: current everyday user Substances: Nicotine Devices: Refillable tank Substance Use Topics Alcohol use: Yes Comment: occasional Drug use: Never Review of Systems Constitutional: Negative for chills and fever. Skin: Positive for itching and rash (Positive for clear, watery drainage. Denies warmth and purulent drainage. ). Objective Blood pressure 128/64, pulse 80, temperature 37.2 ?C (98.9 ?F), temperature source Tympanic, resp. rate 18, weight 67.6 kg (149 lb 0.5 oz), last menstrual period 04/04/2023, SpO2 99%. Physical Exam Constitutional: General: She is not in acute distress. Appearance: She is not toxic-appearing or diaphoretic. HENT: Head: Normocephalic and atraumatic. Skin: General: Skin is warm and dry. Findings: Rash present. Rash is vesicular (distribution linear ). Neurological: Mental Status: She is alert and oriented to person, place, and time. ASSESSMENT/PLAN: 1. Rhus dermatitis - ICD9: 692.6, ICD10: L25.5 (primary diagnosis) - Oral Steriod tx -Prednisone taper - discussed skin care of rash - follow up if symptoms persist or worsen. 2. Secondary infection of skin - ICD9: 686.8, ICD10: L08.89 -use medication as prescribed -follow up if symptoms persist, worsen, change - CEPHALEXIN 500 MG CAPSULE Randy Bojorquez APRN.[employer] Allergies As of Date: 11/22/2023 (Not on File) Date Reviewed: 10/31/2023 Reviewed by: Kamila Vila MA - Fully Assessed Reason for Visit: lower left leg sore [Other] Cmt: X 1 week Primary Visit Diagnosis:Rhus dermatitis [L25.5] Other Visit Diagnosis:Secondary infection of skin [L08.89] Order(s):predniSONE (DELTASONE) 10 mg tabletTake 4 tabs daily x 3 days, then 3 tabs x 3 days, 2 tabs x 3 days, then 1 tab x3 days with food.Disp: 30 tabletRfl: 0 cephALEXin (KEFLEX) 500 mg capsuleTake 1 capsule by mouth three times a day for 7 days.Disp: 21 capsuleRfl: 0 Prescriptions as of 11/22/2023 - predniSONE (DELTASONE) 10 mg tablet Take 4 tabs daily x 3 days, then 3 tabs x 3 days, 2 tabs x 3 days, then 1 tab x3 days with food. - cephALEXin (KEFLEX) 500 mg capsule Take 1 capsule by mouth three times a day for 7 days. - venlafaxine ER (EFFEXOR XR) 37.5 mg 24 hr capsule Take 1 capsule by mouth once daily. For one week and then 2 caps po q day - risankizumab-rzaa (SKYRIZI) 360 mg/2.4 mL (150 mg/mL) wearable injector Inject 360mg (1 device) subcutaneously every 8 weeks. - medroxyPROGESTERone (DEPO-PROVERA) 150 mg/mL Inject 1 mL intramuscularly every 12 weeks. Facility-Administered Medications as of 11/22/2023 - medroxyPROGESTERone 150 mg injection (DEPO-PROVERA) Problem List As Of (more content not included)... Normal [facility] CNOVon 10-31-2023 CNOV Office Visit (FAMPWS ) -- ALY SOLORIO ([id number]) 1990 F Date Time Provider Department 10/31/23 10:40 AM ROQUE POPE During your visit today, we recorded the following information about you: Pulse Blood pressure Weight Height 84/minute 98/64 69.9 kg 1.51 m Roque Pope MD 10/31/2023 11:29 AM Signed Patient presents with: Wellness HPI: Patient presents today for office visit for wellness exam. I last saw her in 2019 Follows with Gastro and Colorectal surgery. Underwent laparoscopic redo ileocolic resection with kono-S ileocolic anastomosis on 09/16/22. Surgery went well. No complications. No current issues or concerns. Continues on Skyrizi injection q 8 weeks. Would like to discuss restarting her Effexor ER. Was on 75 mg daily. Was doing well on this but would miss doses frequently and then eventually just stopped taking it. 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 Notices a difference not taking it. States she probably would benefit talking with someone. Does not see psych or counseling. Has lack of focus. Refers to being scatter brained all the time. Gets stressed out easily. Not productive. Fatigued. [place] more down after stopping. No suicidal ideation. Has followed with establishment guide. MEDICATIONS: Current Outpatient Medications Medication Sig risankizumab-rzaa (SKYRIZI) 360 mg/2.4 mL (150 mg/mL) wearable injector Inject 360mg (1 device) subcutaneously every 8 weeks. medroxyPROGESTERone (DEPO-PROVERA) 150 mg/mL Inject 1 mL intramuscularly every 12 weeks. Current Facility-Administered Medications Medication Dose Route Frequency medroxyPROGESTERone 150 mg injection (DEPO-PROVERA) 150 mg INTRAMUSCULAR every 12 weeks ALLERGIES: ALLERGIES No Known Allergies PAST MEDICAL HISTORY 05/11/2018: ASCUS with positive high risk HPV cervical Comment: Colopscopy benign 2000: Crohn disease (HCC) 02/06/2022: Small bowel obstruction (HCC) PAST SURGICAL HISTORY 03/29/2018: SECTION HX 2005: COLONOSCOPY STOMA W/ENDOSCOPIC MUCOSAL RESCJ Comment: small and large resection 09/16/2022: PAST SURGICAL HISTORY OF Comment: Laparoscopic redo ileocolic resection with Kono-S ileocolic anastomosis FAMILY HISTORY Adopted: Yes Problem Relation Age of Onset Cancer Father Lung Social History Tobacco Use Smoking status: Former Current packs/day: 0.00 Types: Cigarettes Quit date: 2019 Years since quittin.6 Smokeless tobacco: Never Vaping Use Vaping status: current everyday user Substances: Nicotine Devices: Kindling Substance Use Topics Alcohol use: Yes Comment: occasional Drug use: Never Discussed tobacco cessation, including risks of continued use. Offered assistance to help quit if patient desires. Reviewed current medications, allergies, past medical history, surgical history, family history and social history today. REVIEW OF SYSTEMS GENERAL: No weight loss, malaise or fevers HEENT: Negative for frequent or significant headaches, No changes in hearing or vision, no nose bleeds or other nasal problems NECK: Negative for lumps, goiter, pain and significant neck swelling RESPIRATORY: Negative for cough, hemoptysis, wheezing, COPD, dyspnea or shortness of breath CARDIOVASCULAR: Negative for chest pain, leg swelling, hypertension, CHF or palpitations : No history of dysuria, frequency or incontinence SKIN: Negative for lesions, rash, and itching HEMATOLOGY/LYMPHOLOGY: Negative for prolonged bleeding, bruising easily or swollen nodes NEURO: No history of headaches, syncope, paralysis, seizures or tremors All other reviewed and negative other than HPI. HEALTH MAINTENANCE: Reviewed health maintenance issues today and recommended the following in detail. Depression Screening Never done HIV Screening Never done Covid-19 Vaccine( season) due on 10/29/2023 Influenza Vaccine(1) due on 10/29/2023 VITALS: BP 98/64 Pulse 84 Ht 151 cm (4' 11.45) Wt 69.9 kg (154 lb 3.2 oz) LMP 04/04/2023 (Approximate) SpO2 99% BMI 30.68 kg/m? Last 4 Encounter Wt Readings: Date: Wt: 10/17/2023 69.9 kg (154 lb) 07/25/2023 72.6 kg (160 lb) 04/24/2023 79.3 kg (174 lb 12.8 oz) 04/17/2023 78.9 kg (174 lb) PHYSICAL EXAMINATION: General appearance: Well appearing, alert, in no acute distress, well-hydrated, well nourished. Skin: Skin color, texture, turgor normal, no suspicious rashes or lesions Head: Normocephalic, no masses, lesions, tenderness or abnormalities Eyes: Anicteric sclera. Pupils are equally round and reactive to light. Extraocular movements are intact. Ears: External ears normal, canals clear Nose/Sinuses: Nares normal, septum midline, mucosa normal, no drainage or sinus tenderness Oropharynx: Lips, mucosa, and tongue normal, teeth and gums normal, oropharynx (more content not included)... Normal [facility] CNNURSEon 10-17-2023 CNNURSE Nurse Visit (OBGYWM) -- LYNDSEY,ROSE M ([id number]) 1990 F Date Time Provider Department 10/17/23 4:00 PM [facility] O[facility] During your visit today, we recorded the following information about you: Blood pressure Weight 108/70 69.9 kg Ford Gutierrez RN 10/17/2023 4:23 PM Signed Patient identified by name and date of . Aly Solorio is here for a Depo Provera injection. Patient brought medication. Date last injected: 07/25/2023 Depo-Provera, 150 mg, administered IM right upper quadrant gluteus, Lot # [id number], expiration date 07/27/2026. Depo-Provera was given without incident. Date of last menses: Patient's last menstrual period was 04/04/2023 (approximate). Irregular bleeding - No Menses ceased - Yes Patient instructed to return to clinic in 12 weeks. [email or web address] [email or web address] Provider KJ was present in office at time of injection. Ford Gutierrez RN Referring Provider: ROQUE POPE [[id number]] Allergies As of Date: 10/17/2023 (No Known Allergies) Date Reviewed: 10/17/2023 Reviewed by: Ford Gutierrez, CORTNEY - Fully Assessed Reason for Visit: Depo Provera Injection [165] Primary Visit Diagnosis:Encounter for management and injection of depo-Provera [Z30.42] Prescriptions as of 10/17/2023 - risankizumab-rzaa (SKYRIZI) 360 mg/2.4 mL (150 mg/mL) wearable injector Inject 360mg (1 device) subcutaneously every 8 weeks. - medroxyPROGESTERone (DEPO-PROVERA) 150 mg/mL Inject 1 mL intramuscularly every 12 weeks. - risankizumab-rzaa (SKYRIZI SUBCUTANEOUS) Inject subcutaneously. - acetaminophen (TYLENOL) 325 mg tablet Take 2 tablets by mouth every 6 hours as needed (for pain.). - ergocalciferol 50,000 unit capsule (VITAMIN D2, DRISDOL) Take 1 capsule by mouth one time a week. - venlafaxine ER (EFFEXOR XR) 75 mg 24 hr capsule Take 1 capsule by mouth once daily. Facility-Administered Medications as of 10/17/2023 - medroxyPROGESTERone 150 mg injection (DEPO-PROVERA) Problem List As Of Date 10/17/2023 Noted Resolved Atypical squamous cell changes of undetermined *05/23/2018 Small bowel obstruction (HCC) [K56.609] 02/06/2022 Nicotine use disorder, F17.2 [F17.200] 02/08/2022 Crohn's disease (HCC) [K50.90] 10/09/2017 Diagnosed: 09/09/2022 Chest pain [R07.9] 09/09/2022 Diagnosed: 09/09/2022 Class 1 obesity due to excess calories with ser*09/09/2022 Anxiety [F41.9] 09/09/2022 Leukocytosis [D72.829] 09/09/2022 Thyromegaly [E01.0] 09/09/2022 S/P small bowel resection [Z90.49] 09/16/2022 Crohn's disease of both small and large intesti*11/23/2022 Disposition: Return in 12 weeks (on 01/09/2024). Follow-up and Disposition History for Encounter Date Provider Department Center 10/17/2023 [id number] [facility] *ROCK Lizarraga Encounter Status:Closed by FORD GUTIERREZ on 10/17/23 [facility] CNNURSEon 07-25-2023 CNNURSE Nurse Visit (ROCK) -- ALY SOLORIO ([id number]) 1990 F Date Time Provider Department 07/25/23 9:00 AM NURSE [facility] OBGYWM During your visit today, we recorded the following information about you: Blood pressure Weight 110/68 72.6 kg Nelly Nowak RN 07/25/2023 9:33 AM Signed Patient identified by name and date of . Aly Solorio is here for a Depo Provera injection. Patient brought medication. Date last injected: 04/26/23 Depo-Provera, 150 mg, administered IM left upper quadrant gluteus, Lot # [id number], expiration date 04/27/27. Depo-Provera was given without incident. Date of last menses: Patient's last menstrual period was 04/04/2023 (approximate). Irregular bleeding - No Menses ceased - Yes STD prevention discussed: Yes Patient instructed to return to clinic on 12 weeks. [email or web address] Provider Dr. East was present in office at time of injection. Nelly Nowak RN Referring Provider: ROQUE POPE [[id number]] Allergies As of Date: 07/25/2023 (No Known Allergies) Date Reviewed: 07/25/2023 Reviewed by: Nelly Nowak, CORTNEY - Fully Assessed Reason for Visit: Depo Provera Injection [1655] Primary Visit Diagnosis:Encounter for management and injection of depo-Provera [Z30.42] Prescriptions as of 07/25/2023 - risankizumab-rzaa (SKYRIZI) 360 mg/2.4 mL (150 mg/mL) wearable injector Inject 360mg (1 device) subcutaneously every 8 weeks. - medroxyPROGESTERone (DEPO-PROVERA) 150 mg/mL Inject 1 mL intramuscularly every 12 weeks. - risankizumab-rzaa (SKYRIZI SUBCUTANEOUS) Inject subcutaneously. - acetaminophen (TYLENOL) 325 mg tablet Take 2 tablets by mouth every 6 hours as needed (for pain.). - ergocalciferol 50,000 unit capsule (VITAMIN D2, DRISDOL) Take 1 capsule by mouth one time a week. - venlafaxine ER (EFFEXOR XR) 75 mg 24 hr capsule Take 1 capsule by mouth once daily. Facility-Administered Medications as of 07/25/2023 - medroxyPROGESTERone 150 mg injection (DEPO-PROVERA) Problem List As Of Date 07/25/2023 Noted Resolved Atypical squamous cell changes of undetermined *05/23/2018 Small bowel obstruction (HCC) [K56.609] 02/06/2022 Nicotine use disorder, F17.2 [F17.200] 02/08/2022 Crohn's disease (HCC) [K50.90] 10/09/2017 Chest pain [R07.9] 09/09/2022 Class 1 obesity due to excess calories with ser*09/09/2022 Anxiety [F41.9] 09/09/2022 Leukocytosis [D72.829] 09/09/2022 Thyromegaly [E01.0] 09/09/2022 S/P small bowel resection [Z90.49] 09/16/2022 Crohn's disease of both small and large intesti*11/23/2022 Disposition: Return in 12 weeks (on 10/17/2023). Follow-up and Disposition History for Encounter Date Provider Department Center 07/25/2023 [id number] [facility] *OBGYWM Nella Lizarraga Encounter Status:Closed by NELLY NOWAK on 07/25/23 [facility]AL [facility] B/Oon 04-26-2023 status Negative neg - pos [facility] Quality Check Yes [facility] T4 FREE/FREE THYROXon 2022 Free T4 [Mass/Vol] 1.2 ng/dL 0.9 - 1.7 ng/dL [facility] TSH BLDon 12-15-2022 TSH Qn 3.020 m[IU]/L 0.270 - 4.200 mIU/L [facility] Laboratory - Chemistry and C hemistry - challengeon 10-19-2022 CRP [Mass/Vol] <0.9 mg/dL [facility] CBC W Auto Differential pane l (Bld)on 10-18-2022 Basophils (Bld) [#/Vol] <0.11 k/uL [facility] Basophils/100 WBC (Bld) 0.3 % [facility] Differential cell count method Nom (Bld) Auto [facility] Eosinophils (Bld) [#/Vol] 0.19 10*3/uL <0.46 k/uL [facility] Eosinophils/100 WBC (Bld) 2.6 % [facility] Erythrocyte distribution width (RBC) [Ratio] 13.5 % 11.5 - 15.0 % [facility] Hematocrit (Bld) [Volume fraction] 36.7 % 36.0 - 46.0 % [facility] Hemoglobin (Bld) [Mass/Vol] 12.3 g/dL 11.5 - 15.5 g/dL [facility] Immature granulocytes (Bld) [#/Vol] <0.10 k/uL [facility] Immature granulocytes/100 WBC (Bld) 0.3 % [facility] Lymphocytes (Bld) [#/Vol] 2.61 10*3/uL 1.00 - 4.00 k/uL [facility] Lymphocytes/100 WBC (Bld) 35.9 % [facility] MCH (RBC) [Entitic mass] 27.4 pg 26.0 - 34.0 pg [facility] MCHC (RBC) [Mass/Vol] 33.5 g/dL 30.5 - 36.0 g/dL [facility] MCV (RBC) [Entitic vol] 81.7 fL 80.0 - 100.0 fL [facility] Monocytes (Bld) [#/Vol] 0.33 10*3/uL <0.87 k/uL [facility] Monocytes/100 WBC (Bld) 4.5 % [facility] Neutrophils (Bld) [#/Vol] 4.11 10*3/uL 1.45 - 7.50 k/uL [facility] Neutrophils/100 WBC (Bld) 56.4 % [facility] Nucleated RBC (Bld) [#/Vol] <0.01 k/uL [facility] Nucleated RBC/100 WBC (Bld) [Ratio] 0.0 /100 WBC [facility] Platelet mean volume (Bld) [Entitic vol] 8.6 fL Low 9.0 - 12.7 fL [facility] Platelets (Bld) [#/Vol] 246 10*3/uL 150 - 400 k/uL [facility] RBC (Bld) [#/Vol] 4.49 10*6/uL 3.90 - 5.2 0 m/uL [facility] WBC (Bld) [#/Vol] 7.28 10*3/uL 3.70 - 11. 00 k/uL [facility] Comprehensive metabolic 2000 panelon 10-18-2022 Albumin [Mass/Vol] 4.1 g/dL 3.9 - 4.9 g/dL [facility] ALP [Catalytic activity/Vol] 98 U/L 34 - 123 U/L [facility] ALT [Catalytic activity/Vol] 100 U/L High 7 - 38 U/L [facility] Anion gap [Moles/Vol] 12 mmol/L 9 - 18 mmol/L [facility] AST [Catalytic activity/Vol] 59 U/L High 13 - 35 U/L [facility] Bilirubin [Mass/Vol] 0.3 mg/dL 0.2 - 1 .3 mg/dL [facility] Calcium [Mass/Vol] 9.4 mg/dL 8.5 - 10. 2 mg/dL [facility] Chloride [Moles/Vol] 104 mmol/L 97 - 10 5 mmol/L [facility] CO2 [Moles/Vol] 20 mmol/L Low 22 - 30 mmol/L [facility] Creatinine [Mass/Vol] 0.76 mg/dL 0.58 - 0.96 mg/dL [facility] Estimated Glomerular Filtration Rate 108 mL/min/1.73m >=60 mL/min/1.73m [facility] Glucose [Mass/Vol] 148 mg/dL High 74 - 99 mg/dL [facility] Potassium [Moles/Vol] 3.0 mmol/L Low 3.7 - 5.1 mmol/L [facility] Protein [Mass/Vol] 6.8 g/dL 6.3 - 8.0 g/dL [facility] Sodium [Moles/Vol] 136 mmol/L 136 - 144 mmol/L [facility] Urea nitrogen [Mass/Vol] 4 mg/dL Low 7 - 21 mg/dL [facility] STREP A MOLECULAR (POC)on Procedural Control Valid [facility] Strep A (POCT) Positive Abnormal Negative [facility] CT ENTEROGRAPHY W IVCONon [facility] US THYROID/PARATHYROIDon [facility] No Panel Informationon 12-11 IMPRESSION: Negative. Mattress Filling Machine Tender: MARIAN Transcribe Date/Time: Dec 12 2019 6:45P Dictated by : CARINE ROSENBAUM MD This examination was interpreted and the report reviewed and electronically signed by: CARINE ROSENBAUM MD on Dec 12 2019 6:46PM [facility] DIVISION OF RADIOLOGY Radiology Study observation (narrative) [facility] No Panel InformationOrdered By: Ccf Provider on 12-12-2019 [facility] XR Knee - left 4 Viewson * * *Final Report* * * DATE OF EXAM: Dec 12 2019 6:10PM WOX 5202 - XR KNEE 4V AP/PA BOTH+LAT/RUFUS LT / PROCEDURE REASON: multiple diagnoses * * * * Physician Interpretation * * * * PROCEDURE: Bilateral knees INDICATION: Chronic pain of both knees .bilateral anterior medial and lateral knee pain. No known injury TECHNIQUE: XR KNEE 4V AP/PA BOTH+LAT/RUFUS RT, XR KNEE 4V AP/PA BOTH+LAT/RUFUS LT COMPARISON: None FINDINGS: No fractures or dislocations are seen. No significant joint effusion or joint body is evident. The joint spaces are maintained without evidence for significant degenerative or arthritic change. DIVISION OF RADIOLOGY Provider, [facility] - 12/12/2019 * * *Final Report* * * DATE OF EXAM: Dec 12 2019 6:10PM WOX 5202 - XR KNEE 4V AP/PA BOTH+LAT/RUFUS LT / PROCEDURE REASON: multiple diagnoses * * * * Physician Interpretation * * * * PROCEDURE: Bilateral knees INDICATION: Chronic pain of both knees .bilateral anterior medial and lateral knee pain. No known injury TECHNIQUE: XR KNEE 4V AP/PA BOTH+LAT/RUFUS RT, XR KNEE 4V AP/PA BOTH+LAT/RUFUS LT COMPARISON: None FINDINGS: No fractures or dislocations are seen. No significant joint effusion or joint body is evident. The joint spaces are maintained without evidence for significant degenerative or arthritic change. IMPRESSION IMPRESSION: Negative. Mattress Filling Machine Tender: MARIAN Transcribe Date/Time: Dec 12 2019 6:45P Dictated by : CARINE ROSENBAUM MD This examination was interpreted and the report reviewed and electronically signed by: CARINE ROSENBAUM MD on Dec 12 2019 6:46PM [facility] XR Knee - right 4 Viewson * * *Final Report* * * DATE OF EXAM: Dec 12 2019 6:10PM WOX 5203 - XR KNEE 4V AP/PA BOTH+LAT/RUFUS RT / PROCEDURE REASON: multiple diagnoses * * * * Physician Interpretation * * * * PROCEDURE: Bilateral knees INDICATION: Chronic pain of both knees .bilateral anterior medial and lateral knee pain. No known injury TECHNIQUE: XR KNEE 4V AP/PA BOTH+LAT/RUFUS RT, XR KNEE 4V AP/PA BOTH+LAT/RUFUS LT COMPARISON: None FINDINGS: No fractures or dislocations are seen. No significant joint effusion or joint body is evident. The joint spaces are maintained without evidence for significant degenerative or arthritic change. DIVISION OF RADIOLOGY Provider, [facility] - 12/12/2019 * * *Final Report* * * DATE OF EXAM: Dec 12 2019 6:10PM WOX 5203 - XR KNEE 4V AP/PA BOTH+LAT/RUFUS RT / PROCEDURE REASON: multiple diagnoses * * * * Physician Interpretation * * * * PROCEDURE: Bilateral knees INDICATION: Chronic pain of both knees .bilateral anterior medial and lateral knee pain. No known injury TECHNIQUE: XR KNEE 4V AP/PA BOTH+LAT/RUFUS RT, XR KNEE 4V AP/PA BOTH+LAT/RUFUS LT COMPARISON: None FINDINGS: No fractures or dislocations are seen. No significant joint effusion or joint body is evident. The joint spaces are maintained without evidence for significant degenerative or arthritic change. IMPRESSION IMPRESSION: Negative. Mattress Filling Machine Tender: MARIAN Transcribe Date/Time: Dec 12 2019 6:45P Dictated by : CARINE ROSENBAUM MD This examination was interpreted and the report reviewed and electronically signed by: CARINE ROSENBAUM MD on Dec 12 2019 6:46PM [facility] Group B Strep PCRon 03-19-19 Group B Strep PCR Positive Normal [facility] Comment on above: Order Comment: For p ositive results only; Penicillin is the recommended antibiotic for the treatment of Group B Streptococcal disease. In case of penicillin allergy, Clindamycin may be used. All Negative GBS Screens by PCR will be confirmed by culture. Performed By: #### 2 [id number] #### [facility] Micro[facility] Subsection [address] [place] [address] U Drug Screenon 03-16-2018 U Amph Scr Negative [facility] Comment on above: Performed By: #### 2 [id number] #### LAURO RemHemo [address] [place] [address] U Jordyn Scr Negative [facility] Comment on above: Performed By: #### 2 [id number] #### LAURO RemHemo [address] [place] [address] U Benzodia Scr Negative [facility] Comment on above: Performed By: #### 2 [id number] #### LAURO RemHemo [address] [place] [address] 27765 U Cannab Scr Negative [facility] Comment on above: Performed By: #### 2 [id number] #### LAURO RemHemo [address] [place] [address]951 U Cocaine Scr Negative [facility] Comment on above: Performed By: #### 2 [id number] #### LAURO RemHemo [address] [place] [address] 114[address] U Opiate Scr Negative [facility] Comment on above: Performed By: #### 2 [id number] #### LAURO RemHemo [address] [place] [address] U PCP Scr Negative [facility] Comment on above: Performed By: #### 2 [id number] #### LAURO RemHemo [address] [place] [address] Genetics - [facility] - [facility] Chief ComplaintPatient was seen on 10/09/17 via Telemedicine as a follow-up after a recent inpatient evaluation and stay at [facility]. History of Present IllnessAly is a 27 yo who was 13+5 at time of our outpatient follow-up based on EDC 04/05/18.She had a recent antepartum admission after transfer from [place] with headache and concern for a new diagnosis of left dural venous sinus thrombosis on outside CT scan. She initially presented with a left frontal headache that was throbbing in nature, along with whole body soreness and a weakness/heaviness in her limbs. Her headache improved with morphine and darkness, but was again severe several hours after morphine administration, pain reported as10/10. She reported blurry vision and dark spots in her vision, but denied any vision loss. She felt like her arms are numb and tingling and had trouble moving her limbs, but denied any loss of urinary or bowel control.During her [facility] [place] hospital stay, a hypercoagulability work-up was negative, and repeat MRI/MRV ruled OUT the previously suspected venous sinus thrombosis, with Neurology consultation guiding specific imaging recommendations and interpretation. Of note, she [...] that child was adopted into another family. Aly and her partner appear to recall very little from this delivery and the situation surrounding it.Her is also notable for a long-standing diagnosis of Crohn's disease, diagnosed after a 2004 bowel resection via pathology. Initial surgery appears to have been performed in the setting of an acute abdomen. She has previously used Humira with good symptom control, noting 1 flare/year and no fistulas or perianal disease.During her hospital stay, she was seen primarily by the M team, and follow-up plan of care for her prior history were outlined and initiated - see end of consult note for reiteration of these recommendations.Today, Aly and her partner had some of [...] other relevant history is documented. Review of SystemsConstitutional: no fever. Cardiovascular: no chest pain, no [...] Succinate 25 MG TABS; Take 1 tablet daily;Therapy: (Recorded:06Oct2017) to Recorded Dispense: 0 Days ; #: Sufficient Tablet; Refill: 0; YING = N; Record; Last Updated By: Kay Gonzalez; 10/06/2017 8:38:12 AM Humira Pen 40 MG/0.4ML Subcutaneous Pen-injector Kit;Therapy: (Recorded:[id number]) to Recorded Dispense: 0 Days ; #: Sufficient Pen-injector Kit; Refill: 0; YING = N; Record; Last Updated By: Letty Stevens; 10/09/2017 11:05:15 AM One Daily TABS;Therapy: (Recorded:06Oct2017) to Recorded Dispense: 0 Days ; #: Sufficient TABS; Refill: 0; YING = N; Record; Last Updated By: Kay Gonzalez; 10/06/2017 8:27:25 AM Physical ExamPhysical exam not performed as this was a Telemedicine consult Diagnoses/Problems Maternal Crohn's disease affecting (648.90,555.9) (O99.619,K50.90) History of migraine during (V23.89) (Z86.69,Z87.59) Patient Discussion/SummaryWe saw Ms. Guy for a follow-up outpatient consult to reiterate MFM recommendations outlined during her inpatient stay, includin. History of preeclampsia with severe features, necessitating () with possible placental abruption-addressed recurrence risk-initiated recommended daily baby ASA, shown to decrease recurrence risk-reviewed/assessed 'baseline' preeclampsia labs, all within normal limits-otherwise routine care with repeat preeclampsia evaluation for mild range BPs, preeclampsia symptoms, or other concerns for recurrent diagnosis2. History of delivery-detailed records surrounding that diagnosis/delivery not available at time of our consult-no specific recommendations regarding chance of TOLAC success addressed at this early GA; patient plans to further discuss with her provider as progresses but is interested in a TOLAC if an appropriate candidate-given history of bowel surgery, TOLAC (if appropriate) may be optimal to avoid subsequent abdominal surgery and increased surgical risk and risk of increased scar tissue3. Crohn's-stable at this time, with Humira planned for restart, and recommended continuation through as overall reassuring safety profile-if flare suspected, patient would return to her usual Gastroenterology provider, and understands 2nd line agent may be prednisone-MFM happy to weigh in with any new questions/concerns regarding flares in this pregnancy4. Other routine counseling-encouraged ongoing smoking cessation, currently down to 1/2 ppd; would consider a third trimester growth ultrasound, given risk of SGA/IUGR with tobacco use in -recommend detailed anatomy ultrasound at 19-20 weeksAll questions addressed, and we appreciate the opportunity to participate in her care. Please contact us with any questions or concerns.Elzbieta Russell MD. End of Encounter MedsDoxylamine Succinate 25 MG TABS; Take 1 tablet daily;Therapy: (Recorded:06Oct2017) to RecordedHumira Pen 40 MG/0.4ML Subcutaneous Pen-injector Kit;Therapy: (Recorded:[id number]) to RecordedPrenatal One Daily TABS;Therapy: (Recorded:[id number]) to Recorded Signatures Electronically signed by : Elzbieta Russell MD; Dec 05 2017 8:29PM EST (Author) Normal [facility] US After 1st Trime steron 11-21-2017 US After 1st Trimester Exam Date/Time: 11/21/2017 10:12 EDT Reason for Exam: DATES / ANATOMY;Standard Anatomy Report STUDY: US After 1st Trimester 11/21/2017 10:12 am INDICATION: Standard Anatomy. COMPARISON: None. ACCESSION NUMBER(S): [id number] ORDERING CLINICIAN: José Antonio Friedman TECHNIQUE: Routine [...] Signed by: Catrachito Aguillon MD Technologist: SHANTELLE Normal [facility] AFP Tetra Profileon 11-03-19 18 AFP TP AFP Mom Value 1.04 [facility] Comment on above: Performed By: #### 1 [id number] #### [facility] [place] [address] AFP TP AFP Sona EIA 43.7 ng/mL [facility] Comment on above: Performed By: #### 1 [id number] #### LAURO Send Outs Subsection [address] [place] [address] AFP TP Comments: Comment Normal [facility] Comment on above: Result Comment: Alida Garcia, Ph.D., [facility] Principal Genetics Dental Front Office Assistant References: Available Upon Request. Multiples Of Median Cutoffs Abbreviation Definitions For AFP Elevations IDD- Insulin Dep Diabetes Richter 2.5 Black 2.8 OSBR- Open Spina Bifida IDD 2.0 Twins 4.5 Risk DSR Cutoff 1:270 DSR- Down Syndrome Risk T18 Cutoff 1:100 T18- Trisomy 18 Down Syndrome and Trisomy 18 screening are considered Investigational For further inquiries contact [employer] [facility] at [phone]. Performed At: [facility] [address] [facility] [place], [place] [id number] Yohannes Olson MD Ph:[phone] Performed By: #### 1 [id number] #### LAURO Send Outs Subsection [address] [place] [address] AFP TP NATALIE Mom Value 2.06 [facility] Comment on above: Performed By: #### 1 [id number] #### LAURO Send Outs Subsection [address] [place] [address] AFP TP NATALIE Value EIA 368.89 pg/mL [facility] Comment on above: Performed By: #### 1 [id number] #### LAURO Send Outs Subsection [facility] [place] [address] AFP TP DSR 2nd Times 1IN 1723 [facility] Comment on above: Performed By: #### 1 [id number] #### LAURO Send Outs Subsection [address] [place] [address] AFP TP DSR(by Age) 1IN 948 [facility] Comment on above: Performed By: #### 1 [id number] #### LAURO Send Outs Subsection [address] [place] [address] AFP TP GA Base Ultrasound [facility] Comment on above: Result Comment: 17.3 on 10/31/2017 Performed By: #### 1 [id number] #### LAURO Send Outs Subsection [address] [place] [address] AFP TP Gest Age 17.3 week(s) [facility] Comment on above: Performed By: #### 1 [id number] #### LAURO Send Outs Subsection [address] [place] [address] AFP TP hCG Mom 0.74 [facility] Comment on above: Performed By: #### 1 [id number] #### LAURO Send Outs Subsection [address] [place] [address] AFP TP Insulin Dep Diabetes No [facility] Comment on above: Performed By: #### 1 [id number] #### LAURO Send Outs Subsection [address] [place] [address] AFP TP Interp Comment [facility] Comment on above: Result Comment: Inte rpretation: Screen Negative This result is screen negative [...] identifies 60% of Trisomy 18 pregnancies. The [employer] recommends amniocentesis be offered to women age 35 and older. Recalculations are not recommended when gestational dating by LMP and ultrasound are within 10 days. Performed By: #### 1 [id number] #### LAURO Send Outs Subsection [address] [place] [address] AFP TP Mat Age LUCILA 26.6 [facility] Comment on above: Performed By: #### 1 [id number] #### LAURO Send Outs Subsection [address] [place] [address] AFP TP Mult Gest No [facility] Comment on above: Performed By: #### 1 [id number] #### LAURO Send Outs Subsection [address] [place] [address] AFP TP OSBR Risk 1 [place] [address] [facility] Comment on above: Performed By: #### 1 [id number] #### LAURO Send Outs Subsection [address] [place] [address] AFP TP Race Normal [facility] Comment on above: Performed By: #### 1 [id number] #### LAURO Send Outs Subsection [address] [place] [address] AFP TP T18 (By Age) Not increased Normal [facility] Comment on above: Performed By: #### 1 [id number] #### LAURO Send Outs Subsection [address] [place] [address] AFP TP T18 Risk 1:3695 Normal [facility] Comment on above: Performed By: #### 1 [id number] #### LAURO Send Outs Subsection [address] [place] [address] AFP TP Test Results: Negative [facility] Comment on above: Performed By: #### 1 [id number] #### LAURO Send Outs Subsection [address] [place] [address] AFP TP uE3 Mom 1.52 [facility] Comment on above: Performed By: #### 1 [id number] #### LAURO Send Outs Subsection [address] [place] [address] AFP TP uE3 Value 1.69 ng/mL [facility] Comment on above: Performed By: #### 1 [id number] #### LAURO Send Outs Subsection [address] [place] [address] [place] [address] m[IU]/mL [facility] Comment on above: Performed By: #### 1 [id number] #### LAURO Send Outs Subsection [address] [place] [address] TYPE + SCREENon 09-26-2017 ABO TYPE Canceled Normal [facility] Comment on above: Order Comment: TEST TYPE + SCREEN WAS CANCELLED, 09/26/2017 15:46 DUPLICATE ORDER. Performed By: #### T +S ####[id number] [place] [address] RH TYPE Canceled Normal [facility] Comment on above: Order Comment: TEST TYPE + SCREEN WAS CANCELLED, 09/26/2017 15:46 DUPLICATE ORDER. Performed By: #### T +S ####[id number] [place] [address] GC + CHLAMYDIA BY AMPLIFIED DETECTIONon 09-23-2017 CHLAMYDIA TRACH.,AMPLIFIED Negative Normal NEGATIVE [facility] Comment on above: Result Comment: Perf ormance characteristics for Chlamydia trachomatis testing on female urine samples has been validated by [facility]. Testing on this sample type is not FDA-approved, but such approval is not necessary. This laboratory is certified by CLIA to perform high complexity testing. Performed By: #### G [facility] ####[id number] [id number] N.GONORRHEA,AMPLIFIE D Negative Normal NEGATIVE [facility] Comment on above: Result Comment: Perf ormance characteristics for Neisseria gonorrhoeae testing on female urine samples has been validated by [facility]. Testing on this sample type is not FDA-approved, but such approval is not necessary. This laboratory is certified by CLIA to perform high complexity testing. Performed By: #### G [facility] ####[id number] [place] [address] TOTAL PROTEIN, URINE SPOTon 09-23-2017 CREATININE,URINE Canceled Normal [facility] Comment on above: Order Comment: TEST TOTAL PROTEIN, URINE SPOT WAS CANCELLED, 09/21/2017 11:55 ?CancelReason: Patient Discharged. Performed By: #### T PS2 ####[id number] [place] [address] Protein mass conc (U) Canceled Normal [facility] Comment on above: Order Comment: TEST TOTAL PROTEIN, URINE SPOT WAS CANCELLED, 09/21/2017 11:55 ?CancelReason: Patient Discharged. Performed By: #### T PS2 ####[id number] [place] [address] T. PROTEIN/CREAT RATIO Canceled Normal [facility] Comment on above: Order Comment: TEST TOTAL PROTEIN, URINE SPOT WAS CANCELLED, 09/21/2017 11:55 ?CancelReason: Patient Discharged. Performed By: #### T PS2 ####[id number] [place] [address] Clinical Event Note-Neurolog y Sign Offon 09-22-2017 Clinical Event Note-Neurology Sign Off Event: Topic: Neurology Sign Off Details: MRV reviewed and is not consistent with venous thrombosis. No need for anticoagulation at this time. Neurology will sign off at this time. Page with any questions [id number]. Discussed with attending. Josse Sanchez DO, MHSA PGY-3 Provider / Team Contact Information: Provider/Team Contact Info-Pager Number: [phone] Electronic Signatures: Josse Sanchez ( (Resident)) (Signed 22-Sep-2017 11:17) Authored: Event, Provider / Team Contact Information Last Updated: 22-Sep-2017 11:17 by Josse Sanchez ( (Resident)) Normal [facility] Daily Progress Note - OB-Ant epartum - MFMon 09-22-2017 Protein mass conc Current Stage: Stage: Antepartum - MFM Subjective [...] ----- Mn/Dy/Year TimeIntakeOutputNet Sep 22, 2017 6:00 [id number] Sep 21, 2017 10:00 [id number] Sep 21, 2017 2:00 [id number] The Intake and Output Totals for the last 24 hours are: IntakeOutputNet [id number] T PRBPSpO2 Value37.6254170/6298% Date/Time09/22 3: 3: 3: 3: 3:45 Range(36.8C [...] than eight hours after previous dose. Contact [phone] for additional info Hep.B Surface Ag NONREACTIVE Reference Range: NONREACTIVE Patients receiving more than 5 mg/day of biotin may have interference in test results. A sample should be taken no sooner than eight hours after previous dose. Contact [phone] for additional infor HIV Antigen/Antibody Screen 21-Sep-2017 [...] Beta 2 Glycoprotein Ab 21-Sep-2017 03:21:00 ResultValue Pgjc-5-Sdvpnxqhsvvk IgG Antibody <1.4 Xotg-2-Hojuddtlqduu IgA Antibody 0.7 Nzds-3-Hsmrzimtwdrb IgM Antibody <0.2 Dilute Kervin Viper Venom [...] Quantitative 21-Sep-2017 03:21:00 ResultValue HCG, Beta Quantitative 85875 A Assessment and Plan: Assessment: 27 yo at 12.1 (09/22) wga by reported 8.5 wk US presenting for transfer of care from [place] with new dx of L transverse sinus [...] - anticipate discharge today Margie Ledezma, PGY3 [facility] [id number] Signature/Cosignature/Atte station: Comments/ Additional Findings I saw and evaluated [...] documented in her/his note. Espinoza Butcher MD [facility] Attending Electronic Signatures: Margie Ledezma ( (Resident)) (Signed 22-Sep-2017 08:30) Authored: Current Stage, Subjective Data, Objective Data, Assessment and Plan, Signature/Cosignature/Atte station Seymour Butcher) (Signed 22-Sep-2017 22:23) Authored: Signature/Cosignature/Atte station Co-Signer: Current Stage, Subjective Data, Objective Data, Assessment and Plan, Signature/Cosignature/Atte station Last Updated: 22-Sep-2017 22:23 by Seymour Butcher) Normal [facility] GC + CHLAMYDIA BY AMPLIFIED DETECTIONon 09-22-2017 Lab Specimen Source Urine Normal [facility] Comment on above: Performed By: #### G CCHA ####[id number] [id number] HEMOGLOBIN IDENTIFICATIONon 09-22-2017 INTERPRETATION SEE COMMENT Normal [facility] Comment on above: Result Comment: Norm al Performed By: #### H TAYA ####[id number] [id number] HEMOGLOBIN A2 2.9 % Normal [facility] Comment on above: Result Comment: HGB A2 values may be falsely elevated in the presence of HGB S. Performed By: #### H TAYA ####[id number] [place] [address] HEMOGLOBIN F 0.4 % Normal [facility] Comment on above: Performed By: #### H TAYA ####[id number] [place] [address] Hemoglobin mass conc (Bld) 96.7 % Normal [facility] Comment on above: Performed By: #### H TAYA ####[id number] [place] [address] PATH REVIEW-HGB IDENTIFICATI ONon 09-22-2017 Hemoglobin mass conc (Bld) DESIRE Normal [facility] Comment on above: Result Comment: By h er/his signature above, the Pathologist listed as making the final interpretation certifies that she/he has personally reviewed this case. Performed By: #### P R27 ####[id number] [id number] WITH HBSAGon 2017 RUBELLA IGG AB 143.0 IU/ML Normal [facility] Comment on above: Result Comment: REF VALUES NON-IMMUNE: < 5 EQUIVOCAL: 5-9 IMMUNE: >=10 Performed By: #### P RNH3 ####[id number] [id number] TYPE + SCREENon 09-22-2017 ABO TYPE Canceled Normal [facility] Comment on above: Order Comment: TEST TYPE + SCREEN WAS CANCELLED, 09/22/2017 15:56 DUPLICATE ORDER see [id number]. Result Comment: This is a corrected result. Previous value was A, verified at 09/21/2017 11:02 Performed By: #### T +S #### [facility] [address] [place] [id number] RH TYPE Canceled Normal [facility] Comment on above: Order Comment: TEST TYPE + SCREEN WAS CANCELLED, 09/22/2017 15:56 DUPLICATE ORDER see [id number]. Result Comment: This is a corrected result. Previous value was POS, verified at 09/21/2017 11:02 Performed By: #### T +S #### [facility] [address] [place] [id number] ANTICARDIOLIPIN ABon 018 NICK IGM 0.2 MPL U/mL Normal 0.0 - 20.0 [facility] Comment on above: Result Comment: Elev ated levels of IgM anti-cardiolipin on 2 occasions at least 12 weeks apart are laboratory criteria for anti-phospholipid syndrome according to an international consensus (J Thromb Haemost 2006 4:295). IgM anti-cardiolipin tends to give false positive results in the low positive range, especially in the presence of rheumatoid factor or cryoglobulins. Performed By: #### A CA2 ####[id number] [id number] NICK IGA 0.6 APL U/mL Normal 0.0 - 20.0 [facility] Comment on above: Result Comment: Elev ated levels of IgA anti-cardiolipin have not been included in the laboratory criteria for anti-phospholipid syndrome according to an international consensus (J Thromb Haemost 2006 4:295). It may be helpful in identifying subgroups of patients at risk for specific clinical manifestations of anti-phospholipid syndrome. Performed By: #### A CA2 ####[id number] [place] [address] NICK IGG <1.6 Normal 0.0 - 20.0 [facility] Comment on above: Result Comment: Elev ated levels of IgG anti-cardiolipin on 2 occasions at least 12 weeks apart are laboratory criteria for anti-phospholipid syndrome according to an international consensus (J Thromb Haemost 2006 4:295). Performed By: #### A CA2 ####[id number] [place] [address] Admission Risk Screen - OBon 09-21-2017 Admission Risk Screen - OB Allergies: Allergies: ? No Known Allergies: Patient [...] ? Cultural Considerationsnone ? Developmental Considerationsnone ? Sikhism Considerationsnone Learning Assessment (Other Learner): ? Other [...] with underlying chronic conditions or reside in long term care phlebotomist care facilitiesnone of these conditions ? Persons [...] Screen - OB Electronic Signatures: Dania Forte (RN) (Signed 21-Sep-2017 03:41) Authored: Admission Risk Screens, Vaccinations, Mother's Chart (Do Not Modify) Last Updated: 21-Sep-2017 03:41 by Dania Forte (RN) Normal [facility] BETA 2 GLYCOPROTEIN ABon B2 GLYCOPROTEIN AB IGM <0.2 Normal 0.0 - 20.0 [facility] Comment on above: Result Comment: Elev ated levels of IgM anti-Beta 2 Glycoprotein-I on 2 occasions at least 12 weeks apart are laboratory criteria for anti-phospholipid syndrome according to an international consensus (J Thromb Haemost 2006 4:295). IgM anti-Beta 2 Glycoprotein-I tends to give false positive results in the low positive range, especially in the presence of rheumatoid factor or cryoglobulins. Performed By: #### B 2GLY #### [facility] [id number] [place] [address] B2 GLYCOPROTEIN AB IGA 0.7 U/mL Normal 0.0 - 20.0 [facility] Comment on above: Result Comment: Elev ated levels of IgA anti-Beta 2 Glycoprotein-I have [...] with any clinical manifestation of anti-phospholipid syndrome. Performed By: #### B 2GLY #### [facility] [address] [place] [address] B2 GLYCOPROTEIN AB IGG <1.4 Normal 0.0 - 20.0 [facility] Comment on above: Result Comment: Elev ated levels of IgG anti-Beta 2 Glycoprotein-I on 2 occasions at least 12 weeks apart are laboratory criteria for anti-phospholipid syndrome according to an international consensus (J Thromb Haemost 2006 4:295). Performed By: #### B 2GLY #### [facility] [address] [place] [address] CBCon 09-21-2017 Erythrocyte distribution width Ratio (RBC) 13.1 % Normal 11.5 - 14.5 [facility] Comment on above: Performed By: #### C BC #### [facility] [address] [place] [address] Hematocrit Volume Fraction (Bld) 33.5 % Low 36.0 - 46.0 [facility] Comment on above: Performed By: #### C BC #### [facility] [address] [place] [address] Hemoglobin mass conc (Bld) 11.3 g/dL Low 12.0 - 16.0 [facility] Comment on above: Performed By: #### C BC #### [facility] [address] [place] [address] MCHC mass conc (RBC) 33.7 g/dL Normal 32.0 - 36.0 [facility] Comment on above: Performed By: #### C BC #### [facility] [address] [place] [address] MCV Entitic volume (RBC) 87 fL Normal 80 - 100 [facility] Comment on above: Performed By: #### C BC #### [facility] [address] [place] [address] Nucleated RBC/100 WBC Ratio (Bld) 0.0 /100 WBC Normal 0.0-0.0 [facility] Comment on above: Performed By: #### C BC #### [facility] [address] [place] [address] Platelets #/vol (Bld) 196 10*3/uL Normal 150 - 450 [facility] Comment on above: Performed By: #### C BC #### [facility] [address] [place] [address] RBC #/vol (Bld) 3.85 x10E12/L Low 4.00 - 5.20 [facility] Comment on above: Performed By: #### C BC #### [facility] [address] [place] [address] WBC #/vol (Bld) 11.6 10*3/uL High 4.4 - 11.3 [facility] Comment on above: Performed By: #### C BC #### [facility] [address] [place] [address] COAGULATION SCREENon 018 aPTT Coag time (Bld) 26 s Normal 25 - 36 [facility] Comment on above: Result Comment: THE APTT IS NO LONGER USED FOR MONITORING UNFRACTIONATED HEPARIN THERAPY. FOR MONITORING HEPARIN THERAPY, USE THE HEPARIN ASSAY. Performed By: #### C OAGS #### [facility] [address] [place] [address] INR Coag RelTime (PPP) 1.0 {INR} Normal 0.9 - 1.1 [facility] Comment on above: Performed By: #### C OAGS #### [facility] [address] [place] [address] Prothrombin time (PT) Coag time (PPP) 11.3 s Normal 9.8 - 12.7 [facility] Comment on above: Performed By: #### C OAGS #### [facility] [address] [place] [address] COMPREHENSIVE PANELon 2017 Albumin mass conc 3.3 g/dL Low 3.4 - 5.0 [facility] Comment on above: Performed By: #### C MP #### [facility] [address] [place] [address] ALP enzyme act/vol 31 U/L Low 33 - 110 [facility] Comment on above: Performed By: #### C MP #### [facility] [address] [place] [address] ALT enzyme act/vol 16 U/L Normal 7 - 45 [facility] Comment on above: Result Comment: Sandra ents treated with Sulfasalazine may generate falsely decreased results for ALT. Performed By: #### C MP #### [facility] [address] [place] [address] Anion gap molar conc 12 mmol/L Normal 10 - 20 [facility] Comment on above: Performed By: #### C MP #### [facility] [address] [place] [address] AST enzyme act/vol 20 U/L Normal 9 - 39 [facility] Comment on above: Performed By: #### C MP #### [facility] [address] [place] [address] Bilirubin mass conc 0.4 mg/dL Normal 0.0 - 1.2 [facility] Comment on above: Performed By: #### C MP #### [facility] [address] [place] [address] Calcium mass conc 8.2 mg/dL Low 8.6 - 10.6 [facility] Comment on above: Performed By: #### C MP #### [facility] [address] [place] [address] Chloride molar conc 110 mmol/L High 98 - 107 [facility] Comment on above: Performed By: #### C MP #### [facility] [address] [place] [address] Creatinine mass conc 0.43 mg/dL Low 0.50 - 1.05 [facility] Comment on above: Performed By: #### C MP #### [facility] [address] [place] [address] GFR- AM. >60 Normal >60 [facility] Comment on above: Result Comment: CALC ULATIONS OF ESTIMATED GFR ARE PERFORMED USING THE MDRD STUDY EQUATION FOR THE IDMS-TRACEABLE CREATININE METHODS. CLIN CHEM 2007;53:766-72 Performed By: #### C MP #### [facility] [address] [place] [address] GFR-NON AM. >60 Normal >60 [facility] Comment on above: Performed By: #### C MP #### [facility] [address] [place] [address] Glucose mass conc 79 mg/dL Normal 74 - 99 [facility] Comment on above: Performed By: #### C MP #### [facility] [address] [place] [address] HCO3 molar conc (Bld) 19 mmol/L Low 21 - 32 [facility] Comment on above: Performed By: #### C MP #### [facility] [address] [place] [address] Potassium molar conc 3.8 mmol/L Normal 3.5 - 5.3 [facility] Comment on above: Performed By: #### C MP #### [facility] [address] [place] [address] Protein mass conc 5.3 g/dL Low 6.4 - 8.2 [facility] Comment on above: Performed By: #### C MP #### [facility] [address] [place] [address] Sodium molar conc 137 mmol/L Normal 136 - 145 [facility] Comment on above: Performed By: #### C MP #### [facility] [address] [place] [address] Urea nitrogen mass conc 6 mg/dL Normal 6 - 23 [facility] Comment on above: Performed By: #### C MP #### [facility] [address] [place] [address] Clinical Event Note-Updated Neuro Recson 09-21-2017 Clinical Event Note-Updated Neuro Recs Event: Topic: Updated Neuro Recs Details: It is unclear if the imaging finding is indicative of a CVT vs arachnoid granulation. Please obtain MRV time of flight in addition to MRI brain with volumetric T1 and T2 images. Tammy Padgett MD PGY4 Neurology Resident Electronic Signatures: Tammy Martin (Resident)) (Signed 21-Sep-2017 13:51) Authored: Event Last Updated: 21-Sep-2017 13:51 by Tammy Martin (Resident)) Normal [facility] Consult - Neuro-Strokeon Consult - Neuro-Stroke Service: Service: Service: Stroke Consult: Consult requested by (Attending Name): Lm Reason: CVT History of Present Illness: HPI: This is a 27 yo woman currently 10 week , migraines presenting as transfer from [place] with diagnosis of L transverse dural venous [...] was able to walk. She presented to [facility] when the headache didn't resolve after a few hours like it usually does. CTV showed a nonocclusive L transverse sinus thrombus. She was transferred to OBGYN service at [facility]. She has migraines a few times [...] Known Allergies: Objective: Objective Information: T PRBPSpO2 [id number]/4194% Date/Time09/21 2:107 3: 2: 4: 2:10 Range(37C - 37C ) (73 - [...] exam was normal. In both upper extremities, njppfr-zynk-tiavug was intact without dysmetria or overshoot. In both lower extremities, roeb-ql-lsja was intact. KAYLEE were intact in both upper and lower extremities. GAIT:Deferred due to , weakness Medications: Medications: Continuous Medications ------ No continuous medications are active Scheduled Medications ------ 1. Enoxaparin SubCutaneous: 60 mg SubCutaneous Every 12 Hours 2. with Folic Acid: 1 tablet(s) Oral Daily PRN Medications ------ 1. Lidocaine 1% Injectable: 0.5 mL SubCutaneous [...] Quantitative 21-Sep-2017 03:21:00 ResultValue HCG, Beta Quantitative 99739 A Radiology Results: Results: CT venous (contrast) reviewed from disk in paper chart. Non-occlusive <1cm flow void in L transverse sinus. Assessment/Recommendations : Aly Guy is a 27 yo 10 week woman presenting for headache, transferred to [facility] for L transverse sinus thrombus. Patient's [...] all documentation. Jonny Leslie PGY4 Neurology Resident Signature/Cosignature/Atte station: Attending AttestationI saw and evaluated the patient. [...] she has a mild headache still. At [place] ED, CTV was interpreted as showing a nonocclusive L transverse sinus thrombus. She was transferred to OBGYN service at [facility] and started on full anticoagulation with Lovenox. Clinically she is stable. Reviewed images here with neuroradiology (Vijaya oJhnson). He felt that most likely what was interpreted as thrombus is more arachnoid granulations (a normal variant). In order to confirm this, we will obtain MRV. Continue with anticoagulation for now. Electronic Signatures: Ishan Ricardo (Resident)) (Signed 21-Sep-2017 05:42) Authored: History of Present Illness, Objective, Assessment/Recommendations , Signature/Cosignature/Atte station Jonny Carlson) (Signed 21-Sep-2017 16:06) Authored: Signature/Cosignature/Atte station Co-Signer: History of Present Illness, Objective, Assessment/Recommendations , Signature/Cosignature/Atte station Jonny Leslie (Resident)) (Signed 21-Sep-2017 05:01) Authored: Service, History of Present Illness, Allergies, Objective, Assessment/Recommendations Last Updated: 21-Sep-2017 16:06 by Jonny Carlson) Normal [facility] Consult-Maternal - Med icine ( Medical Student Note , Aon 09-21-2017 Consult-Maternal - Medicine ( Medical Student Note , A Service: Service: Maternal - Medicine Medical Student: Medical Student Note Stephen Ghosh History of Present Illness: Admission Reason: L dural venous sinus thrombosis HPI: 27 yo at 12 wga by reported 8.5 wk US presenting as transfer from [place] with new dx L dural venous sinus [...] warmth, edema, or tenderness in LE Neurological: 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 Enoxaparin SubCutaneous: 60 mg SubCutaneous Every 12 Hours 2. with Folic Acid: 1 tablet(s) Oral Daily PRN Medications ------ 1. Lidocaine 1% Injectable: 0.5 mL SubCutaneous [...] Beta 2 Glycoprotein Ab 21-Sep-2017 03:21:00 ResultValue Itlg-6-Mycthojkgeoc IgG Antibody <1.4 Swax-8-Zqgnlsuzfneh IgA Antibody 0.7 Mzas-7-Tgvmofbjupcm IgM Antibody <0.2 Dilute Kervin Viper Venom [...] Quantitative 21-Sep-2017 03:21:00 ResultValue HCG, Beta Quantitative 59042 A Assessment: 27 yo at 12 wga by reported 8.5 wk US presenting for transfer of care from [place] with new dx of L transverse sinus [...] lab records - Request US records Stephen Cruzti MS4 Signature/Cosignature/Atte station: Centerless Grinder Set Up Operator Only - Attest to Medical Student/Acting Bolt Man documentationAs a teaching institution, we recognize that [...] Signatures: Lan Andujar) (Signed 21-Sep-2017 13:39) Authored: Signature/Cosignature/Atte station Co-Signer: Service, History of Present Illness, Allergies, Objective, Assessment/Recommendations , Signature/Cosignature/Atte station Stephen Ghosh (MED STUD) (Signed 21-Sep-2017 11:54) Authored: Service, History of Present Illness, Allergies, Objective, Assessment/Recommendations , Signature/Cosignature/Atte station Last Updated: 21-Sep-2017 13:39 by Lan Andujar) Normal [facility] DILUTE KERVIN VIPER VENOM T DAPHNE[DRVVT]on 09-21-2017 DRVVT CONFIRMATION 1.02 RATIO Normal [facility] Comment on above: Performed By: #### D RVVT #### [facility] [address] [place] [address] DRVVT SCREEN 0.93 RATIO Normal [facility] Comment on above: Performed By: #### D RVVT #### [facility] [address] [place] [address] DRVVT TEST RATIO 0.91 RATIO Normal <=1.20 [facility] Comment on above: Performed By: #### D RVVT #### [facility] [address] [place] [id number] Discharge Planning Noteon Discharge Planning Note Discharge Needs Assessment: ? Discharge Planning Assessment [id number] Discharge Planning: Discharge Planning: Date and Time: 09/21/2017 0208 Nursing Note/Admission/Health Maintenance: D: Patient admitted to the [facility] unit from [place] Patient admitted for or s/p neuro consult [...] to assess home going/discharge needs. Coordinate with Compo Caster as needed. Signature: Nneka BARR Date and [...] Disposition/Discharge: Disposition/Discharge Information: Discharge/Transfer Information: ? Discharge/Transfer Date/[id number] 21:07 ? Discharged Accompanied Bysignificant other/partner ? Discharge Modeambulatory ? Transportation Methodprivate car ? Final DispositionHome Electronic Signatures: Stefany Whiting I (RN) (Signed 22-Sep-2017 21:07) Authored: Final Disposition/Discharge Harriett Renteria (RUSLAN) (Signed 22-Sep-2017 19:26) Authored: Discharge Planning Note, Final Disposition/Discharge Dania Forte (RN) (Signed 21-Sep-2017 02:25) Authored: Discharge Planning Note Last Updated: 22-Sep-2017 21:07 by Stefany Whiting I (RN) Normal [facility] Discharge Rbiooze7ws 07-26-2 018 Protein mass conc Discharge Orders: Anticipated Discharge Date: ? Anticipated Discharge [id number] Triage OB: Activity: Return to normal activity [...] ? Physician/Dept/ServiceOB Provider ? CommentsFollow up with electrical machinist as scheduled. Provider FINAL REVIEW of Orders: Final Review: ? Final Review of Medication Reconciliation and Orders Completedby Physician ? Reviewing ProviderCamryn Figueroa MD (Resident) at 22-Sep-2017 09:59:32 Appointments: Follow-Up Appointment 01: ? Physician/Dept/Christel FRIEDMAN[facility] ? Reason for ReferralPRENATAL VISIT ON Monday09-25-17 ? CommentsPLEASE KEEP THIS APPOINTMENT- DR FRIEDMAN WILL REVIEW YOUR HOSPITAL RECORDS & DISCUSS PLAN & IF MFM FOLLOW UP WITH US IS NEEDED WITH YOU AT YOUR APPOINTMENT Other Clinician Instructions: Other Instructions: ? Nursing InstructionsCall your OB provider for contractions (tightening, balling up) more than 4-6 times an hour; constant menstrual-like cramps in your lower belly; low, dull [...] Authored: Other Clinician Instructions, Gold Form - Council Member Summary Last Updated: 22-Sep-2017 10:57 by Oscar Carreno (CLIN COOR) Normal [facility] FACTOR V LEIDENon 09-21-2017 FACTOR V LEIDEN SEE BELOW Normal [facility] Comment on above: Result Comment: RESU LTS WILL BE SENT ON SEPARATE REPORT. Performed By: #### L EID2 ####[address], [place] [id number] HCG,BETA-QUANTITATIVEon 08-28 HCG,BETA-QUANTITATIV E 86349 IU/L Abnormal [facility] Comment on above: Result Comment: Low- level positive HCG results can be seen in [...] performed using a different test methodology at [facility] than other [facility]. Direct result comparison should only be made within the same method. REF VALUES NON FEMALE <5 MALES <5 Performed By: #### H CGQU #### [facility] [address] [place] [address] History and Physical - OBon 09-21-2017 History and Physical - OB HPI/OB History/Dating: Care Provider: Other Care Location: Other Did this patient receive any care at [facility]?: no Was this patient transferred from another facility for this admission?: yes Transfer Location (If patient is coming from an office, choose the hospital where patient intended to deliver.): Other Dating: ? Choose Antepartum or Postpartumantepartum ? Final [id number] ? Current EGA:12 HPI Descriptive Info: ? HPI 27 yo at 12.0 wga by reported 8.5 wk U/S presents as a transfer from [place] with a new diagnosis of left dural [...] last flare 6 mos. 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 Lam Marie, PGY-2 Signatures/Attestation/Cer tification: Attending AttestationI saw and evaluated the patient. [...] on 21-Sep-2017 Comments/ Additional Findings Transferred from [place] for dural venous sinus thrombosis and headache. [...] of care, and discharge plan. Electronic Signatures: Param Sam) (Signed 21-Sep-2017 07:11) Authored: Signatures/Attestation/Cer tification Co-Signer: Social History, Allergies, Review of Systems, Objective, Assessment and Plan, Signatures/Attestation/Cer tification, Antepartum, Family History, HPI/OB History/Dating Mariella Marie (Resident)) (Signed 21-Sep-2017 04:03) Authored: Social History, Allergies, Review of Systems, Objective, Assessment and Plan, Signatures/Attestation/Cer tification, Antepartum, Family History, HPI/OB History/Dating Last Updated: 28-Sep-2017 10:02 by Noris Arora ([facility]) Normal [facility] NR MR VENOGRAPHY INTRACRANIA L W/O CONTRASTon 09-21-2017 NR MR VENOGRAPHY INTRACRANIAL W/O CONTRAST Patient Name: ALY GUY STUDY: NR MRI BRAIN WO; NR MR VENOGRAPHY INTRACRANIAL W/O CONTRAST; 09/21/2017 5:59 pm; 09/21/2017 6:00 pm INDICATION: Signs/Symptoms: R/o venous sinus thrombosis. Stroke protocol. COMPARISON: None ACCESSION NUMBER(S): [id number]; [id number] ORDERING CLINICIAN: NITZA TAPIA TECHNIQUE: MRI of the brain was [...] as stated. This study was interpreted at [facility], [place], [place]. Electronically signed by: CATY KARIMI MD Normal [facility] NR MRI BRAIN WOon 09-21-2017 NR MRI BRAIN WO Patient Name: ALY GUY STUDY: NR MRI BRAIN WO; NR MR VENOGRAPHY INTRACRANIAL W/O CONTRAST; 09/21/2017 5:59 pm; 09/21/2017 6:00 pm INDICATION: Signs/Symptoms: R/o venous sinus thrombosis. Stroke protocol. COMPARISON: None ACCESSION NUMBER(S): [id number]; [id number] ORDERING CLINICIAN: NITZA TAPIA TECHNIQUE: MRI of the brain was [...] as stated. This study was interpreted at [place], [place]. Electronically signed by: CATY KARIMI MD Normal [facility] WITH HBSAGon 2017 HEP.B SURFACE AG NONREACTIVE Normal NONREACTIVE [facility] Comment on above: Result Comment: Sandra ents receiving more than 5 mg/day of biotin may have interference in test results. A sample should be taken no sooner than eight hours after previous dose. Contact [phone] for additional information. Performed By: #### P RNH3 ####[id number] [place] [address] SYPHILIS IGG NON REACTIVE Normal NONREACTIVE [facility] Comment on above: Result Comment: Sandra ents receiving more than 5 mg/day of biotin may have interference in test results. A sample should be taken no sooner than eight hours after previous dose. Contact [phone] for additional information. Performed By: #### P RNH3 ####[id number] [place] [address] Erythrocyte distribution width Ratio (RBC) 13.1 % Normal 11.5 - 14.5 [facility] Comment on above: Performed By: #### P RNH3 ####[id number] [place] [address] Hematocrit Volume Fraction (Bld) 34.6 % Low 36.0 - 46.0 [facility] Comment on above: Performed By: #### P RNH3 ####[id number] [place] [address] Hemoglobin mass conc (Bld) 11.4 g/dL Low 12.0 - 16.0 [facility] Comment on above: Performed By: #### P RNH3 ####[id number] [place] [address] MCHC mass conc (RBC) 32.9 g/dL Normal 32.0 - 36.0 [facility] Comment on above: Performed By: #### P RNH3 ####[id number] [place] [address] MCV Entitic volume (RBC) 88 fL Normal 80 - 100 [facility] Comment on above: Performed By: #### P RNH3 ####[id number] [place] [address] Nucleated RBC/100 WBC Ratio (Bld) 0.0 /100 WBC Normal 0.0-0.0 [facility] Comment on above: Performed By: #### P RNH3 ####[id number] [place] [address] Platelets #/vol (Bld) 193 10*3/uL Normal 150 - 450 [facility] Comment on above: Performed By: #### P RNH3 ####[id number] [place] [address] RBC #/vol (Bld) 3.94 x10E12/L Low 4.00 - 5.20 [facility] Comment on above: Performed By: #### P RNH3 ####[id number] [place] [address] WBC #/vol (Bld) 9.4 10*3/uL Normal 4.4 - 11.3 [facility] Comment on above: Performed By: #### P RNH3 ####[id number] [place] [address] Lab Specimen Source Normal [facility] Comment on above: Performed By: #### P RNH3 ####[id number] [place] [address] PROTHROMBIN MUTATION- [id number] on 09-21-2017 Protein mass conc SEE BELOW Normal [facility] Comment on above: Result Comment: RESU LTS WILL BE SENT ON SEPARATE REPORT. Performed By: #### G PRO2 ####[address] [address], [place] [id number] Patient Profile - OB v2on Protein mass conc Profile: Initial Info: How to be Addressedrose Spoken Language PreferredEnglish Source of Informationpatient Are you currently using the Personal Electronic Health Record or Tablo PublishingWesabeno Are you interested in learning more about [facility] for the management of your healthnot at this time Reason for admission this visitother diagnosis early Arrived Fromspital Patient Belongingsremains with patient Patient Belongings Remaining with Patientcell phone/electronics; clothing; vision aids Medications Brought to Hospitalno Info: Gravida2 Term Deliveries1 Deliveries0 Abortions0 Living Children1 Patient stated [id number] Calculation of EGA based on patient stated EDD12 Is care information applicable this patient/visit?not yet Current Risksnone Testsultrasound Previous Delivery (20 weeks or greater)yes First Delivery Complications (Oldest Child/Children)preeclampsi a Is plan applicable this patient/visit?not yet Is infant information applicable this patient/visit?not yet Is feeding plan applicable this patient/visit?not yet General Health: Weight in tcf252 pound(s) Weight in kg57.1 kilogram(s) Weight Methodactual [...] Support/Comfortspouse Lives Withspouse Resource/Environmental Concernsnone [facility] Anticipated at Transitionnone Information Review: ? Allergies, Home Meds and Significant Events have been Reviewed and Verified with Patient/Familyno ALLERGY, INTOLERANCE, ADVERSE EVENT: Allergies: ? No Known Allergies: Active Electronic Signatures: Dania Forte (CORTNEY) (Signed 21-Sep-2017 03:44) Authored: Profile, Additional Information Last Updated: 21-Sep-2017 03:44 by Dania Forte (CORTNEY) Normal [facility] IGP W/hpv Rfx [id number] 07-21 Diagnosis: See Ref Lab Report Normal [facility] Comment on above: Order Comment: LMP: 06/16/17 Performed By: #### 1 [id number] #### LAURO Send Outs Subsection [address] [place] [address] Pathology ([facility])on 07-13-2017 Pathology ([facility]) FINAL GYNECOLOGIC CY TOLOGY [id number] ADEQUACYSatisfactory for Evaluation. Endocervical cells/transformation zone componentpresent.GENERAL CATEGORIZATIONEpithelial Cell AbnormalityDESCRIPTIVE DIAGNOSISAtypical squamous cells of undetermined significance.COMMENTHigh Risk HPV was ordered and performed at [facility] Laboratory. Results arereported below in this report. A negative result is a normal result. Apositive result is an abnormal result.HPV HIGH RISK NEGATIVE: The results of this test indicate the patient'sspecimen is NEGATIVE for the following high-risk HPV types:16/18/31/33/35/39/45 /51/52/56/58/59/66/68. RELATED LABORATORY RESULTSOrdered by: Jenny Date: 07/13/2017 Ord Time: 21:59Test Collected Result Abnormal Range Units SpecimenName D&T TypeHPV Negative NA MSCRNA, 8HighRiskThe HPV test detects E6/E7 viral messenger RNA (mRNA) high-risk HPV rcaleadvh71,18,31,33,35,39 ,45,51,55,58,59,66, and 68 which are associated with cervicalcancer and its precursor lesions. However, cross-reactions with othergenotypes may occur. Results should be correlated with cytologic andhistologic findings. Sensitivity may be affected by cellularity of specimen.CLINICAL HISTORYLMP: 06/16/2017SPECIMEN(A) SCREENING CERVICAL/ENDOCERVICAL THIN PREP VIALPerformed at [facility], [address] [place], [place] [address]Screened by: SOFIYA CARSON Optician Signed Out by: KEVAN RAYA MD Reported: 07/20/2017 Normal [facility] Comment on above: Performed By: #### G YN ####[facility] [address] [place] [address] .Auto Diffon 02-09-2017 Basophils Auto #/vol (Bld) 0.00 10 3/mcL Normal 0.00-0.19 [facility] ([place]) Comment on above: Performed By: #### C BC, ADIFF, ANEU, CMP, GFR ####Andreina [address] [place], [place] [address] Basophils/100 WBC Auto (Bld) 0.4 % Normal 0.0-2.5 [facility] ([place]) Comment on above: Performed By: #### C BC, ADIFF, ANEU, CMP, GFR ####Andreina [address] [place], [place] [address] Eosinophils 0.10 10 3/mcL Normal 0.00-0.40 [facility] ([place]) Comment on above: Performed By: #### C BC, ADIFF, ANEU, CMP, GFR ####Andreina [address] [place], [place] [address] Eosinophils/100 leukocytes 1.2 % Normal 0.0-7.0 [facility] ([place]) Comment on above: Performed By: #### C BC, ADIFF, ANEU, CMP, GFR ####[address] [place], [place] [address] Lymphocytes 4.00 10 3/mcL High 0.77-3.85 [facility] ([place]) Comment on above: Performed By: #### C BC, ADIFF, ANEU, CMP, GFR ####[address] [place], [place] [address] Lymphocytes/100 leukocytes 40.0 % Normal 10.0-50.0 [facility] ([place]) Comment on above: Performed By: #### C BC, ADIFF, ANEU, CMP, GFR ####Andreina [address] [place], [place] [address] Monocytes 0.70 10 3/mcL Normal 0.15-1.00 [facility] ([place]) Comment on above: Performed By: #### C BC, ADIFF, ANEU, CMP, GFR ####[address] [place], [place] [address] Monocytes/100 leukocytes 7.0 % Normal 1.7-13.0 [facility] ([place]) Comment on above: Performed By: #### C BC, ADIFF, ANEU, CMP, GFR ####[address] [place], [place] [address] Neutrophils/100 WBC Auto (Bld) 51.4 % Normal 37.0-80.0 [facility] ([place]) Comment on above: Performed By: #### C BC, ADIFF, ANEU, CMP, GFR ####Andreina [address] [place], [place] [address] .GFRon 02-09-2017 eGFR (non-black) 123 ml/min/1.73sqm Normal [facility] ([place]) Comment on above: Result Comment: GFR Population mean for , Non- Americans Ages 20-29 = 116 mL/min/1.73 sq.m. Ages 30-39 = 107 mL/min/1.73 sq.m. Ages 40-49 = 99 mL/min/1.73 sq.m. Ages 50-59 = 93 mL/min/1.73 sq.m. Ages 60-69 = 85 mL/min/1.73 sq.m. Ages 70+ = 75 mL/min/1.73 sq.m.Chronic Kidney Disease: Less than 60 mL/min/1.73 square metersEnd Stage Renal Disease: Less than 15 mL/min/1.73 square meters Performed By: #### C BC, ADIFF, ANEU, CMP, GFR ####Andre[address] [place], [place] [address] eGFR (non-black) mL/min/{1.73_m2} Normal [facility] ([place]) Comment on above: Result Comment: GFR Population mean for , Non- Americans Ages 20-29 = 116 mL/min/1.73 sq.m. Ages 30-39 = 107 mL/min/1.73 sq.m. Ages 40-49 = 99 mL/min/1.73 sq.m. Ages 50-59 = 93 mL/min/1.73 sq.m. Ages 60-69 = 85 mL/min/1.73 sq.m. Ages 70+ = 75 mL/min/1.73 sq.m.Chronic Kidney Disease: Less than 60 mL/min/1.73 square metersEnd Stage Renal Disease: Less than 15 mL/min/1.73 square meters Performed By: #### C BC, ADIFF, ANEU, CMP, GFR ####[address] [place], [place] [address] .NEUABSon 02-09-2017 Neutrophils 5.20 10 3/mcL Normal 2.85-6.16 [facility] ([place]) Comment on above: Performed By: #### C BC, ADIFF, ANEU, CMP, GFR ####[address] [place], [place] [address] CBCon 02-09-2017 Erythrocyte distribution width Auto Ratio (RBC) 13.6 % Normal 11.5-14.5 [facility] ([place]) Comment on above: Performed By: #### C BC, ADIFF, ANEU, CMP, GFR ####[address] [place], [place] [address] Erythrocytes (RBC) 4.92 10 6/mcL Normal 4.20-5.40 [facility] ([place]) Comment on above: Performed By: #### C BC, ADIFF, ANEU, CMP, GFR ####Andre[address] [place], [place] [address] Hematocrit (HCT) 42.7 % Normal 37.0-47.0 [facility] ([place]) Comment on above: Performed By: #### C BC, ADIFF, ANEU, CMP, GFR ####[address] [place], [place] [address] Hemoglobin mass conc (Bld) 14.3 G/dL Normal 12.0-16.0 [facility] ([place]) Comment on above: Performed By: #### C BC, ADIFF, ANEU, CMP, GFR ####Andre[address] [place], [place] [address] MCH 29.1 pg Normal 27.0-31.2 [facility] ([place]) Comment on above: Performed By: #### C BC, ADIFF, ANEU, CMP, GFR ####[address] [place], [place] [address] MCHC mass conc (RBC) 33.5 G/dL Normal 33.0-37.0 [facility] ([place]) Comment on above: Performed By: #### C BC, ADIFF, ANEU, CMP, GFR ####[address] [place], [place] [address] MCV 86.9 fL Normal 80.0-94.0 [facility] ([place]) Comment on above: Performed By: #### C BC, ADIFF, ANEU, CMP, GFR ####[address] [place], [place] [address] Platelet mean volume (PMV) 7.1 fL Low 7.4-10.4 [facility] ([place]) Comment on above: Performed By: #### C BC, ADIFF, ANEU, CMP, GFR ####[address] [place], [place] [address] Platelets 305 10 3/mcL Normal 130-400 [facility] ([place]) Comment on above: Performed By: #### C BC, ADIFF, ANEU, CMP, GFR ####[address] [place], [place] [address] WBC (Leukocytes) 10.00 10 3/mcL Normal 4.60-10.80 [facility] ([place]) Comment on above: Performed By: #### C BC, ADIFF, ANEU, CMP, GFR ####Andreina [address] [place], [place] [address] CMPon 02-09-2017 Alanine aminotransferase (ALT) 12 U/L Normal 10-35 [facility] ([place]) Comment on above: Performed By: #### C BC, ADIFF, ANEU, CMP, GFR ####Andreina [address] [place], [place] [address] Albumin 4.3 G/dL Normal 3.5-5.0 [facility] ([place]) Comment on above: Performed By: #### C BC, ADIFF, ANEU, CMP, GFR ####Andreina [address] [place], [place] [address] Albumin/Globulin Ratio 2.0 {ratio} Normal 1.1-2.5 [facility] ([place]) Comment on above: Performed By: #### C BC, ADIFF, ANEU, CMP, GFR ####[address] [place], [place] [address] Alk Phos 48 IU/L Normal 40-135 [facility] ([place]) Comment on above: Performed By: #### C BC, ADIFF, ANEU, CMP, GFR ####[address] [place], [place] [address] Aspartate aminotransferase (AST) 19 U/L Normal 10-40 [facility] ([place]) Comment on above: Performed By: #### C BC, ADIFF, ANEU, CMP, GFR ####[address] [place], [place] [address] Bili Total 0.2 mg/dL Normal 0.2-1.0 [facility] ([place]) Comment on above: Performed By: #### C BC, ADIFF, ANEU, CMP, GFR ####[address] [place], [place] [address] BUN/Creatinine Ratio 11 ratio Normal 7-27 [facility] ([place]) Comment on above: Performed By: #### C BC, ADIFF, ANEU, CMP, GFR ####And[address] [place], [place] [address] Calcium 9.2 mg/dL Normal 8.4-10.2 [facility] ([place]) Comment on above: Performed By: #### C BC, ADIFF, ANEU, CMP, GFR ####Andre[address] [place], [place] [address] Chloride 107 mmol/L Normal 98-107 [facility] ([place]) Comment on above: Performed By: #### C BC, ADIFF, ANEU, CMP, GFR ####Andre[address] [place], [place] [address] CO2 25 mmol/L Normal 22-29 [facility] ([place]) Comment on above: Performed By: #### C BC, ADIFF, ANEU, CMP, GFR ####Andre[address] [place], [place] [address] Creatinine 0.7 mg/dL Normal 0.6-1.2 [facility] ([place]) Comment on above: Performed By: #### C BC, ADIFF, ANEU, CMP, GFR ####[address] [place], [place] [address] Electrolyte Balance 8.0 mEq/L Normal [facility] ([place]) Comment on above: Performed By: #### C BC, ADIFF, ANEU, CMP, GFR ####Andre[address] [place], [place] [address] Globulin 2.2 G/dL Normal [facility] ([place]) Comment on above: Performed By: #### C BC, ADIFF, ANEU, CMP, GFR ####[address] [place], [place] [address] Glucose mass conc 87 mg/dL Normal 70-105 [facility] ([place]) Comment on above: Performed By: #### C BC, ADIFF, ANEU, CMP, GFR ####[address] [place], [place] [address] Potassium molar conc 4.2 mmol/L Normal 3.5-5.1 [facility] ([place]) Comment on above: Performed By: #### C BC, ADIFF, ANEU, CMP, GFR ####[address] [place], [place] [address] Protein 6.5 G/dL Normal 6.0-8.3 [facility] ([place]) Comment on above: Performed By: #### C BC, ADIFF, ANEU, CMP, GFR ####Andre[address] [place], [place] [address] Sodium 140 mmol/L Normal 136-146 [facility] ([place]) Comment on above: Performed By: #### C BC, ADIFF, ANEU, CMP, GFR ####And[address] [place], [place] [address] Urea nitrogen 7.6 mg/dL Normal 7.0-18.0 [facility] ([place]) Comment on above: Performed By: #### C BC, ADIFF, ANEU, CMP, GFR ####Andreina [address] [place], [place] [address] CT ABD/PELVIS W/ IV CONTRAST ONLYon 02-09-2017 CT ABD/PELVIS W/ IV CONTRAST ONLY ORIGINALClinical history: Lower abdomen pain. History of Crohn's disease. COMPARISON: CT scan of the abdomen and pelvis on December 16, 2016. Axial scans were obtained through the abdomen and pelvis. Intravenous contrast was given for this examination. The scans were reviewed in axial, coronal, and sagittal planes of reconstruction. This exam was performed according to our departmental dose optimization program, and includes the following measures where applicable: automated exposure control, adjustment of the mAs and/or kVp according to patient size and/or exam, and an iterative reconstruction algorithm. No acute abnormality is present at the lung bases. The liver, biliary tree, pancreas, spleen, adrenal glands, kidneys, ureters, abdominal aorta, and the inferior vena cava show no sign of acute abnormality. The intestinal structures show no sign of obstruction. No localized inflammatory changes are present. There is no abdominal mass. Anastomosis of the colon is noted in the right side of the abdomen. No abnormality is seen in this region. There is no free intraperitoneal air and no abnormal fluid collection. Scans through the pelvis show no signs of inflammation or mass. Urinary bladder appears normal. The skeletal structures are unremarkable. IMPRESSION: No sign of acute abdominal or pelvic abnormality. Interpreted By: Izaiah Lynnereliminary Report By: Izaiah Lynne MDElectronically Signed By: Izaiah Lynne MD Dictated Date: 02/09/2017 1:01:12 AM Prelim Date: 02/09/2017 1:01:12 AM Sign Date: 02/09/2017 1:06:52 AM Normal [facility] ([place]) [facility] Note on 02-09-2017 [facility] Note Normal [facility] ([place]) PREGSon 02-09-2017 test (s) Negative [facility] ([place]) Comment on above: Performed By: #### P REGS ####[address] [place], [place] [address] test (s) int HCG not detected. Invalid Interpretation Code [facility] ([place]) Comment on above: Performed By: #### P REGS ####[address] [place] [address] QC PRGSN Negative Normal Negative [facility] ([place]) Comment on above: Performed By: #### P REGS ####Andreina [address] [place] [address] QC PRGSP Positive Normal Positive [facility] ([place]) Comment on above: Performed By: #### P REGS ####Andreina [address] [place], [place] [address] Patient Summary Documentson 02-09-2017 Patient Summary Documents Normal [facility] ([place]) MISCon 01-25-2017 [facility]. Send Out See Comments Normal [facility] ([place]) Comment on above: Result Comment: See Separate Report Performed By: #### C BC, ADIFF, ANEU, HFP, MISC ####Andreina [address] [place], [place] [address]#### ESR, CRP ####[place] [address] CRPon 01-20-2017 C reactive protein (CRP) 0.18 mg/dL Normal <=0.80 [facility]) Comment on above: Performed By: #### C BC, ADIFF, ANEU, HFP, MISC ####[address] [place], [place] [address]#### ESR, CRP ####[address] [address] ESRon 01-19-2017 Erythrocytes (RBC) 5 mm/hr Normal 0-20 [facility] ([place]) Comment on above: Performed By: #### U A, PREGU, UAMICAO ####[address] [place], [place] [address] .Auto Diffon 01-18-2017 Basophils Auto #/vol (Bld) 0.00 10 3/mcL Normal 0.00-0.19 [facility] ([place]) Comment on above: Performed By: #### U A, PREGU, UAMICAO ####[address] [place], [place] [address] Basophils/100 WBC Auto (Bld) 0.4 % Normal 0.0-2.5 [facility] ([place]) Comment on above: Performed By: #### U A, PREGU, UAMICAO ####[address] [place], [place] [address] Eosinophils 0.10 10 3/mcL Normal 0.00-0.40 [facility] ([place]) Comment on above: Performed By: #### U A, PREGU, UAMICAO ####[address] [place], [place] [address] Eosinophils/100 leukocytes 0.7 % Normal 0.0-7.0 [facility] ([place]) Comment on above: Performed By: #### U A, PREGU, UAMICAO ####[address] [place], [place] [address] Lymphocytes 2.80 10 3/mcL Normal 0.77-3.85 [facility] ([place]) Comment on above: Performed By: #### U A, PREGU, UAMICAO ####[address] [place], [place] [address] Lymphocytes/100 leukocytes 28.1 % Normal 10.0-50.0 [facility] ([place]) Comment on above: Performed By: #### NADYA Salomon UAMICAO ####[address] [place], [place] [address] Monocytes 0.60 10 3/mcL Normal 0.15-1.00 [facility] ([place]) Comment on above: Performed By: #### U NADYA Oneil UAMICAO ####[address] [place], [place] [address] Monocytes/100 leukocytes 6.5 % Normal 1.7-13.0 [facility] ([place]) Comment on above: Performed By: #### NADYA Salomon UAMICAO ####[address] [place], [place] [address] Neutrophils/100 WBC Auto (Bld) 64.3 % Normal 37.0-80.0 [facility] ([place]) Comment on above: Performed By: #### NADYA Salomon UAMICKATT ####[address] [place], [place] [address] .NEUABSon 01-18-2017 Neutrophils 6.30 10 3/mcL High 2.85-6.16 [facility] ([place]) Comment on above: Performed By: #### NADYA Salomon UAMICAO ####[address] [place], [place] [address] CBCon 01-18-2017 Erythrocyte distribution width Auto Ratio (RBC) 13.6 % Normal 11.5-14.5 [facility] ([place]) Comment on above: Performed By: #### U NADYA Oneil UAMICAO ####[address] [place], [place] [address] Erythrocytes (RBC) 4.73 10 6/mcL Normal 4.20-5.40 [facility] ([place]) Comment on above: Performed By: #### U NADYA Oneil UAMICAO ####[address] [place], [place] [address] Hematocrit (HCT) 41.5 % Normal 37.0-47.0 [facility] ([place]) Comment on above: Performed By: #### U A, PREGU, UAMICAO ####[address] [place], [place] [address] Hemoglobin mass conc (Bld) 13.9 G/dL Normal 12.0-16.0 [facility] ([place]) Comment on above: Performed By: #### U A, PREGU, UAMICAO ####[address] [place], [place] [address] MCH 29.3 pg Normal 27.0-31.2 [facility] ([place]) Comment on above: Performed By: #### U A, PREGU, UAMICAO ####[address] [place], [place] [address] MCHC mass conc (RBC) 33.4 G/dL Normal 33.0-37.0 [facility] ([place]) Comment on above: Performed By: #### U A PREGU, UAMICAO ####[address] [place], [place] [address] MCV 87.8 fL Normal 80.0-94.0 [facility] ([place]) Comment on above: Performed By: #### U A PREGU, UAMICAO ####[address] [place] [id number] Platelet mean volume (PMV) 7.3 fL Low 7.4-10.4 [facility] ([place]) Comment on above: Performed By: #### U A PREGU, UAMICAO ####[address] [place], [place] [address] Platelets 256 10 3/mcL Normal 130-400 [facility] ([place]) Comment on above: Performed By: #### U A, PREGU, UAMICAO ####[address] [place], [place] [address] WBC (Leukocytes) 9.90 10 3/mcL Normal 4.60-10.80 [facility] ([place]) Comment on above: Performed By: #### U A, PREGU, UAMICAO ####[address] [place], [place] [address] HFPon 01-18-2017 Alanine aminotransferase (ALT) 8 U/L Low 10-35 [facility] ([place]) Comment on above: Performed By: #### U A PREGU UAMICAO ####[address] [place], [place] [address] Albumin 4.0 G/dL Normal 3.5-5.0 [facility] ([place]) Comment on above: Performed By: #### U A PREGU, UAMICAO ####[address] [place], [place] [address] Albumin/Globulin Ratio 1.8 {ratio} Normal 1.1-2.5 [facility] ([place]) Comment on above: Performed By: #### U Thad PREGU UAMICAO ####[address] [place], [place] [address] Alk Phos 44 IU/L Normal 40-135 [facility] ([place]) Comment on above: Performed By: #### U A PREGU, UAMICAO ####[address] [place], [place] [address] Aspartate aminotransferase (AST) 14 U/L Normal 10-40 [facility] ([place]) Comment on above: Performed By: #### U Thad PREGU UAMICAO ####[address] [place], [place] [address] Bili Direct 0.1 mg/dL Normal 0.1-0.5 [facility] ([place]) Comment on above: Performed By: #### U A PREGU, UAMICAO ####[address] [place], [place] [address] Bili Indirect 0.2 mg/dL Normal [facility] ([place]) Comment on above: Performed By: #### U A PREGU, UAMICAO ####[address] [place], [place] [address] Bili Total 0.3 mg/dL Normal 0.2-1.0 [facility] ([place]) Comment on above: Performed By: #### U A PREGU, UAMICAO ####[address] [place], [place] [address] Globulin 2.2 G/dL Normal [facility] ([place]) Comment on above: Performed By: #### NADYA Salomon UAMICAO ####[address] [place], [place] [address] Protein 6.2 G/dL Normal 6.0-8.3 [facility] ([place]) Comment on above: Performed By: #### NADYA Salomon UAMICAO ####[address] [place], [place] [address] [facility] Note on 01-18-2017 [facility] Note Normal [facility] ([place]) Patient Summary Documentson 01-18-2017 Patient Summary Documents Normal [facility]) .Auto Diffon 12-18-2016 Basophils Auto #/vol (Bld) 0.10 10 3/mcL Normal 0.00-0.19 [facility] ([place]) Comment on above: Performed By: #### NADYA Salomon UAMICAO ####[address] [place], [place] [address] Basophils/100 WBC Auto (Bld) 0.5 % Normal 0.0-2.5 [facility] ([place]) Comment on above: Performed By: #### NADYA Salomon UAMICAO ####[address] [place], [place] [address] Eosinophils 0.00 10 3/mcL Normal 0.00-0.40 [facility] ([place]) Comment on above: Performed By: #### NADYA Salomon UAMICAO ####[address] [place], [place] [address] Eosinophils/100 leukocytes 0.0 % Normal 0.0-7.0 [facility] ([place]) Comment on above: Performed By: #### NADYA Salomon UAMICAO ####[address] [place], [place] [address] Lymphocytes 1.60 10 3/mcL Normal 0.77-3.85 [facility] ([place]) Comment on above: Performed By: #### U A, PREGU, UAMICAO ####[address] [place], [place] [address] Lymphocytes/100 leukocytes 11.0 % Normal 10.0-50.0 [facility] ([place]) Comment on above: Performed By: #### U A PREGU, UAMICAO ####[address] [place], [place] [address] Monocytes 0.50 10 3/mcL Normal 0.15-1.00 [facility] ([place]) Comment on above: Performed By: #### U A PREGU, UAMICAO ####[address] [place], [place] [address] Monocytes/100 leukocytes 3.1 % Normal 1.7-13.0 [facility] ([place]) Comment on above: Performed By: #### U A PREGU UAMICAO ####[address] [place], [place] [address] Neutrophils/100 WBC Auto (Bld) 85.4 % High 37.0-80.0 [facility] ([place]) Comment on above: Performed By: #### U Thad PREGU UAMICKATT ####[address] [place], [place] [address] .GFRon 12-18-2016 eGFR (non-black) mL/min/{1.73_m2} Normal [facility] ([place]) Comment on above: Result Comment: GFR Population mean for , Non- Americans Ages 20-29 = 116 mL/min/1.73 sq.m. Ages 30-39 = 107 mL/min/1.73 sq.m. Ages 40-49 = 99 mL/min/1.73 sq.m. Ages 50-59 = 93 mL/min/1.73 sq.m. Ages 60-69 = 85 mL/min/1.73 sq.m. Ages 70+ = 75 mL/min/1.73 sq.m.Chronic Kidney Disease: Less than 60 mL/min/1.73 square metersEnd Stage Renal Disease: Less than 15 mL/min/1.73 square meters Performed By: #### U A, PREGU, UAMICAO ####[address] [place], [place] [address] eGFR (non-black) 127 ml/min/1.73sqm Normal [facility] ([place]) Comment on above: Result Comment: GFR Population mean for , Non- Americans Ages 20-29 = 116 mL/min/1.73 sq.m. Ages 30-39 = 107 mL/min/1.73 sq.m. Ages 40-49 = 99 mL/min/1.73 sq.m. Ages 50-59 = 93 mL/min/1.73 sq.m. Ages 60-69 = 85 mL/min/1.73 sq.m. Ages 70+ = 75 mL/min/1.73 sq.m.Chronic Kidney Disease: Less than 60 mL/min/1.73 square metersEnd Stage Renal Disease: Less than 15 mL/min/1.73 square meters Performed By: #### U A PREGU UAMICAO ####[address] [place], [place] [address] .NEUABSon 12-18-2016 Neutrophils 12.80 10 3/mcL High 2.85-6.16 [facility] ([place]) Comment on above: Performed By: #### U A PREGU, UAMICAO ####[address] [place], [place] [address] CBCon 12-18-2016 Erythrocyte distribution width Auto Ratio (RBC) 13.5 % Normal 11.5-14.5 [facility] ([place]) Comment on above: Performed By: #### U A PREGU, UAMICAO ####[address] [place], [place] [address] Erythrocytes (RBC) 5.31 10 6/mcL Normal 4.20-5.40 [facility] ([place]) Comment on above: Performed By: #### U A PREGU, UAMICAO ####[address] [place], [place] [address] Hematocrit (HCT) 45.9 % Normal 37.0-47.0 [facility] ([place]) Comment on above: Performed By: #### U A PREGU, UAMICAO ####[address] [place], [place] [address] Hemoglobin mass conc (Bld) 15.1 G/dL Normal 12.0-16.0 [facility] ([place]) Comment on above: Performed By: #### NADYA Salomon UAMICAO ####[address] [place], [place] [address] MCH 28.5 pg Normal 27.0-31.2 [facility] ([place]) Comment on above: Performed By: #### NADYA Salomon UAMICAO ####[address] [place], [place] [address] MCHC mass conc (RBC) 33.0 G/dL Normal 33.0-37.0 [facility] ([place]) Comment on above: Performed By: #### NADYA Salomon UAMICKATT ####[address] [place], [place] [address] MCV 86.4 fL Normal 80.0-94.0 [facility] ([place]) Comment on above: Performed By: #### NADYA Salomon UAMICKATT ####[address] [place], [place] [address] Platelet mean volume (PMV) 7.6 fL Normal 7.4-10.4 [facility] ([place]) Comment on above: Performed By: #### NADYA Salomon UAMICKATT ####[address] [place], [place] [address] Platelets 303 10 3/mcL Normal 130-400 [facility] ([place]) Comment on above: Performed By: #### U BO OneilU UAMICAO ####[address] [place], [place] [address] WBC (Leukocytes) 15.00 10 3/mcL High 4.60-10.80 [facility] ([place]) Comment on above: Performed By: #### U Thad PREGU UAMICAO ####[address] [place], [place] [address] CMPon 12-18-2016 Alanine aminotransferase (ALT) 24 U/L Normal 10-35 [facility] ([place]) Comment on above: Performed By: #### U A, PREGU, UAMICAO ####[address] [place], [place] [address] Albumin 4.3 G/dL Normal 3.5-5.0 [facility] ([place]) Comment on above: Performed By: #### U A, PREGU, UAMICAO ####[address] [address] [place], [place] [address] Albumin/Globulin Ratio 1.6 {ratio} Normal 1.1-2.5 [facility] ([place]) Comment on above: Performed By: #### U A, PREGU, UAMICAO ####[address] [place], [place] [address] Alk Phos 50 IU/L Normal 40-135 [facility] ([place]) Comment on above: Performed By: #### U A, PREGU, UAMICAO ####[place] [address] [place], [place] [address] Aspartate aminotransferase (AST) 33 U/L Normal 10-40 [facility] ([place]) Comment on above: Performed By: #### U A, PREGU, UAMICAO ####[place] [address] [place], [place] [address] Bili Total 0.5 mg/dL Normal 0.2-1.0 [facility] ([place]) Comment on above: Performed By: #### U A, PREGU, UAMICAO ####[address] [address] [place], [place] [address] BUN/Creatinine Ratio 16 ratio Normal 7-27 [facility] ([place]) Comment on above: Performed By: #### U A, PREGU, UAMICAO ####[place] [address] [place], [place] [address] Calcium 9.6 mg/dL Normal 8.4-10.2 [facility] ([place]) Comment on above: Performed By: #### U A, PREGU, UAMICAO ####[address] [place], [place] [address] Chloride 103 mmol/L Normal 98-107 [facility] ([place]) Comment on above: Performed By: #### U A, PREGU, UAMICAO ####[address] [place], [place] [address] CO2 25 mmol/L Normal 22-29 [facility] ([place]) Comment on above: Performed By: #### U A, PREGU, UAMICAO ####[address] [place], [place] [address] Creatinine 0.7 mg/dL Normal 0.6-1.2 [facility] ([place]) Comment on above: Performed By: #### U A, PREGU, UAMICAO ####[address] [place], [place] [address] Electrolyte Balance 9.0 mEq/L Normal [facility] ([place]) Comment on above: Performed By: #### U A, PREGU, UAMICAO ####[address] [place], [place] [address] Globulin 2.7 G/dL Normal [facility] ([place]) Comment on above: Performed By: #### U A, PREGU, UAMICAO ####[address] [place], [place] [address] Glucose mass conc 102 mg/dL Normal 70-105 [facility] ([place]) Comment on above: Performed By: #### U A, PREGU, UAMICAO ####[address] [place], [place] [address] Potassium molar conc 5.0 mmol/L Normal 3.5-5.1 [facility] ([place]) Comment on above: Performed By: #### U A, PREGU, UAMICAO ####[address] [place], [place] [address] Protein 7.0 G/dL Normal 6.0-8.3 [facility] ([place]) Comment on above: Performed By: #### U A, PREGU, UAMICAO ####[address] [place], [place] [address] Sodium 137 mmol/L Normal 136-146 [facility] ([place]) Comment on above: Performed By: #### U A, PREGU, UAMICAO ####[address] [place], [place] [address] Urea nitrogen 11.0 mg/dL Normal 7.0-18.0 [facility]) Comment on above: Performed By: #### U Thad PREGU UAMICAO ####[address] [place], [place] [address] LIPon 12-18-2016 Lipase Level 18 IU/L Normal 8-78 [facility]) Comment on above: Performed By: #### U Thad PREGU UAMICAO ####[address] [place], [place] [address] [facility] Note on 12-18-2016 [facility] Note Normal [facility]) Patient Summary Documentson 12-18-2016 Patient Summary Documents Normal [facility]) XR ABDOMEN COMPLETE W/DECUB/ ERECTon 12-18-2016 XR ABDOMEN COMPLETE W/DECUB/ERECT ORIGINALXR ABDOMEN SERIES: CLINICAL STATEMENT: abdominal pain COMPARISON: CT abdomen and pelvis 12/08/2016 FINDINGS: The abdominal bowel gas pattern is nonobstructive. No dilated bowel or air-fluid levels are identified. No pneumoperitoneum. Anastomotic sutures are noted within the right lower quadrant. The lung bases are clear. IMPRESSION: Nonobstructive bowel gas pattern. I have personally reviewed the images of this examination and agree with the resident's findings and interpretation Interpreted By: Glenn Josephreliminary Report By: Juan Cook MDElectronically Signed By: Glenn Joseph MD Dictated Date: 12/18/2016 6:42:31 PM Prelim Date: 12/18/2016 6:44:09 PM Sign Date: 12/18/2016 8:25:17 PM Normal [facility]) CT ABD/PELVIS W/ IV CONTRAST ONLYon 12-17-2016 CT ABD/PELVIS W/ IV CONTRAST ONLY ORIGINALCT ABD/PELVIS W/ IV CONTRAST ONLY Clinical Statement: pain, right-sided abdominal pain, nausea for several hours, history of Crohn's disease, tobacco abuse, history of colon resection 2005, 2011 COMPARISON: None TECHNIQUE: Axial images were obtained from the lung bases through the pubic symphysis after the administration of IV contrast. Coronal reformatted images were generated from the axial dataset. This exam was performed according to our departmental dose optimization program, including but not limited to: automated exposure control, adjustment of the mAs and/or kVp according to patient size and/or exam, and use of an iterative reconstruction algorithm where applicable. FINDINGS: Images of the lung bases are clear bilaterally. The heart is normal in size. No pericardial effusion. The liver, spleen, pancreas, gallbladder, bilateral adrenal glands, and bilateral kidneys are unremarkable. The urinary bladder is well-distended. The uterus and adnexa are unremarkable. There are anastomotic sutures in the right abdomen. The appendix is not visualized. The small and large bowel are not dilated. There is prominence of the fat of the wall of the terminal ileum. No significant adjacent inflammatory changes or fat stranding. This is probably under distention rather than pathology. There are a few adjacent subcentimeter mesenteric lymph nodes, likely reactive. No abscess or drainable fluid collection. There is a focal segment of narrowing at the distal ileum (image 71, series 601), which may be due to peristalsis versus stricture. Otherwise the small bowel is unremarkable. No free intraperitoneal air or fluid. No pathologically enlarged abdominal or pelvic adenopathy. The abdominal aorta and IVC are normal in caliber. No suspicious osseous lesions. There is a bone island in the L2 vertebral body. IMPRESSION: Questionable findings in the distal/terminal ileum as described. This may simply be underdistention but if there is strong concern for Crohn's disease, CT enterography can be considered. No complicating features, obstruction or abscess is seen. The remainder of the study is within normal limits. I have personally reviewed the images of this examination and agree with the resident's findings and interpretation. Interpreted By: Ben Workman MDPreliminary Report By: Laurita Reilly DOElectronically Signed By: Ben Workman MD Dictated Date: 12/16/2016 9:16:28 PM Prelim Date: 12/16/2016 9:30:38 PM Sign Date: 12/16/2016 11:14:44 PM Normal [facility] ([place]) .Auto Diffon 12-16-2016 Basophils Auto #/vol (Bld) 0.00 10 3/mcL Normal 0.00-0.19 [facility] ([place]) Comment on above: Performed By: #### C BC, ADIFF, ANEU, LIP, CMP, GFR ####[address] [place], [place] [address] Basophils/100 WBC Auto (Bld) 0.3 % Normal 0.0-2.5 [facility] ([place]) Comment on above: Performed By: #### C BC, ADIFF, ANEU, LIP, CMP, GFR ####[address] [place], [place] [address] Eosinophils 0.00 10 3/mcL Normal 0.00-0.40 [facility] ([place]) Comment on above: Performed By: #### C BC, ADIFF, ANEU, LIP, CMP, GFR ####[address] [place], [place] [address] Eosinophils/100 leukocytes 0.0 % Normal 0.0-7.0 [facility] ([place]) Comment on above: Performed By: #### C BC, ADIFF, ANEU, LIP, CMP, GFR ####[address] [place], [place] [address] Lymphocytes 1.30 10 3/mcL Normal 0.77-3.85 [facility] ([place]) Comment on above: Performed By: #### C BC, ADIFF, ANEU, LIP, CMP, GFR ####[address] [place], [place] [address] Lymphocytes/100 leukocytes 9.4 % Low 10.0-50.0 [facility] ([place]) Comment on above: Performed By: #### C BC, ADIFF, ANEU, LIP, CMP, GFR ####Andreina [address] [place], [place] [address] Monocytes 0.30 10 3/mcL Normal 0.15-1.00 [facility] ([place]) Comment on above: Performed By: #### C BC, ADIFF, ANEU, LIP, CMP, GFR ####[address] [place], [place] [address] Monocytes/100 leukocytes 2.5 % Normal 1.7-13.0 [facility] ([place]) Comment on above: Performed By: #### C BC, ADIFF, ANEU, LIP, CMP, GFR ####[address] [place], [place] [address] Neutrophils/100 WBC Auto (Bld) 87.8 % High 37.0-80.0 [facility] ([place]) Comment on above: Performed By: #### C BC, ADIFF, ANEU, LIP, CMP, GFR ####[address] [place], [place] [address] .GFRon 12-16-2016 eGFR (non-black) mL/min/{1.73_m2} Normal [facility] ([place]) Comment on above: Result Comment: GFR Population mean for , Non- Americans Ages 20-29 = 116 mL/min/1.73 sq.m. Ages 30-39 = 107 mL/min/1.73 sq.m. Ages 40-49 = 99 mL/min/1.73 sq.m. Ages 50-59 = 93 mL/min/1.73 sq.m. Ages 60-69 = 85 mL/min/1.73 sq.m. Ages 70+ = 75 mL/min/1.73 sq.m.Chronic Kidney Disease: Less than 60 mL/min/1.73 square metersEnd Stage Renal Disease: Less than 15 mL/min/1.73 square meters Performed By: #### U A, PREGU, UAMICAO ####[address] [place], [place] [address] eGFR (non-black) 103 ml/min/1.73sqm Normal [facility] ([place]) Comment on above: Result Comment: GFR Population mean for , Non- Americans Ages 20-29 = 116 mL/min/1.73 sq.m. Ages 30-39 = 107 mL/min/1.73 sq.m. Ages 40-49 = 99 mL/min/1.73 sq.m. Ages 50-59 = 93 mL/min/1.73 sq.m. Ages 60-69 = 85 mL/min/1.73 sq.m. Ages 70+ = 75 mL/min/1.73 sq.m.Chronic Kidney Disease: Less than 60 mL/min/1.73 square metersEnd Stage Renal Disease: Less than 15 mL/min/1.73 square meters Performed By: #### U A, PREGU, UAMICAO ####[address] [place], [place] [address] .NEUABSon 12-16-2016 Neutrophils 12.30 10 3/mcL High 2.85-6.16 [facility] ([place]) Comment on above: Performed By: #### C BC, ADIFF, ANEU, LIP, CMP, GFR ####[address] [place], [place] [address] CBCon 12-16-2016 Erythrocyte distribution width Auto Ratio (RBC) 13.7 % Normal 11.5-14.5 [facility] ([place]) Comment on above: Performed By: #### C BC, ADIFF, ANEU, LIP, CMP, GFR ####[address] [place], [place] [address] Erythrocytes (RBC) 4.83 10 6/mcL Normal 4.20-5.40 [facility] ([place]) Comment on above: Performed By: #### C BC, ADIFF, ANEU, LIP, CMP, GFR ####[address] [place], [place] [address] Hematocrit (HCT) 41.9 % Normal 37.0-47.0 [facility] ([place]) Comment on above: Performed By: #### C BC, ADIFF, ANEU, LIP, CMP, GFR ####[address] [place], [place] [address] Hemoglobin mass conc (Bld) 14.0 G/dL Normal 12.0-16.0 [facility] ([place]) Comment on above: Performed By: #### C BC, ADIFF, ANEU, LIP, CMP, GFR ####[address] [place], [place] [address] MCH 29.1 pg Normal 27.0-31.2 [facility] ([place]) Comment on above: Performed By: #### C BC, ADIFF, ANEU, LIP, CMP, GFR ####[address] [place], [place] [address] MCHC mass conc (RBC) 33.5 G/dL Normal 33.0-37.0 [facility] ([place]) Comment on above: Performed By: #### C BC, ADIFF, ANEU, LIP, CMP, GFR ####[address] [place], [place] [address] MCV 86.7 fL Normal 80.0-94.0 [facility] ([place]) Comment on above: Performed By: #### C BC, ADIFF, ANEU, LIP, CMP, GFR ####[address] [place], [place] [address] Platelet mean volume (PMV) 7.1 fL Low 7.4-10.4 [facility] ([place]) Comment on above: Performed By: #### C BC, ADIFF, ANEU, LIP, CMP, GFR ####[address] [place], [place] [address] Platelets 255 10 3/mcL Normal 130-400 [facility] ([place]) Comment on above: Performed By: #### C BC, ADIFF, ANEU, LIP, CMP, GFR ####[address] [place], [place] [address] WBC (Leukocytes) 13.90 10 3/mcL High 4.60-10.80 [facility] ([place]) Comment on above: Performed By: #### C BC, ADIFF, ANEU, LIP, CMP, GFR ####[address] [place], [place] [address] CMPon 12-16-2016 Alanine aminotransferase (ALT) 12 U/L Normal 10-35 [facility] ([place]) Comment on above: Performed By: #### C BC, ADIFF, ANEU, LIP, CMP, GFR ####[address] [place], [place] [address] Albumin 4.1 G/dL Normal 3.5-5.0 [facility] ([place]) Comment on above: Performed By: #### C BC, ADIFF, ANEU, LIP, CMP, GFR ####[address] [place], [place] [address] Albumin/Globulin Ratio 1.7 {ratio} Normal 1.1-2.5 [facility] ([place]) Comment on above: Performed By: #### C BC, ADIFF, ANEU, LIP, CMP, GFR ####[address] [place], [place] [address] Alk Phos 48 IU/L Normal 40-135 [facility] ([place]) Comment on above: Performed By: #### C BC, ADIFF, ANEU, LIP, CMP, GFR ####Andreina [address] [place], [place] [address] Aspartate aminotransferase (AST) 14 U/L Normal 10-40 [facility] ([place]) Comment on above: Performed By: #### C BC, ADIFF, ANEU, LIP, CMP, GFR ####And[address]ina [address] [place], [place] [address] Bili Total 0.3 mg/dL Normal 0.2-1.0 [facility] ([place]) Comment on above: Performed By: #### C BC, ADIFF, ANEU, LIP, CMP, GFR ####And[address]ina [address] [place] [address] BUN/Creatinine Ratio 19 ratio Normal 7-27 [facility] ([place]) Comment on above: Performed By: #### C BC, ADIFF, ANEU, LIP, CMP, GFR ####[address] [place], [place] [address] Calcium 9.4 mg/dL Normal 8.4-10.2 [facility] ([place]) Comment on above: Performed By: #### C BC, ADIFF, ANEU, LIP, CMP, GFR ####Andreina [address] [place], [place] [address] Chloride 103 mmol/L Normal 98-107 [facility] ([place] Comment on above: Performed By: #### C BC, ADIFF, ANEU, LIP, CMP, GFR ####Andreina [address] [place] [address] CO2 27 mmol/L Normal 22-29 [facility] ([place]) Comment on above: Performed By: #### C BC, ADIFF, ANEU, LIP, CMP, GFR ####Andreina [address] [place] [address] Creatinine 0.8 mg/dL Normal 0.6-1.2 [facility] ([place]) Comment on above: Performed By: #### C BC, ADIFF, ANEU, LIP, CMP, GFR ####[address]rein[address] [place], [place] [address] Electrolyte Balance 9.0 mEq/L Normal [facility] ([place]) Comment on above: Performed By: #### C BC, ADIFF, ANEU, LIP, CMP, GFR ####And[address] [place], [place] [address] Globulin 2.4 G/dL Normal [facility] ([place]) Comment on above: Performed By: #### C BC, ADIFF, ANEU, LIP, CMP, GFR ####[address]re[address] [place], [place] [address] Glucose mass conc 117 mg/dL High 70-105 [facility] ([place]) Comment on above: Performed By: #### C BC, ADIFF, ANEU, LIP, CMP, GFR ####Andreina [id number] [place], [place] [address] Potassium molar conc 4.3 mmol/L Normal 3.5-5.1 [facility] ([place]) Comment on above: Performed By: #### C BC, ADIFF, ANEU, LIP, CMP, GFR ####[address] [place], [place] [address] Protein 6.5 G/dL Normal 6.0-8.3 [facility] ([place]) Comment on above: Performed By: #### C BC, ADIFF, ANEU, LIP, CMP, GFR ####[address] [place], [place] [address] Sodium 139 mmol/L Normal 136-146 [facility] ([place]) Comment on above: Performed By: #### C BC, ADIFF, ANEU, LIP, CMP, GFR ####[address] [place], [place] [address] Urea nitrogen 14.9 mg/dL Normal 7.0-18.0 [facility] ([place]) Comment on above: Performed By: #### C BC, ADIFF, ANEU, LIP, CMP, GFR ####Andreina [id number] [place], [place] [address] LIPon 12-16-2016 Lipase Level 23 IU/L Normal 8- [facility] ([place]) Comment on above: Performed By: #### C BC, ADIFF, ANEU, LIP, CMP, GFR ####[address]re[address] [place], [place] [address] [facility] Note on 12-16-2016 [facility] Normal [facility] ([place]) Patient Summary Documentson 12-16-2016 Patient Summary Documents Normal [facility] ([place]) [facility] Note on 12-15-2016 [facility] Normal [facility] ([place]) .Urinalysis Microscopic (AO) on 12-14-2016 UA Squam Epithelial None Seen Normal None Seen [facility] ([place]) Comment on above: Performed By: #### U A, PREGU, UAMICAO ####[address] [place], [place] [address] UA WBC None Seen Normal None Seen [facility] ([place]) Comment on above: Performed By: #### U A, PREGU, UAMICAO ####Andreina [id number] [place], [place] [address] Urine, erythrocytes None Seen Normal None Seen [facility] ([place]) Comment on above: Performed By: #### U A, PREGU, UAMICAO ####[address] [place], [place] [address] PREGUon 12-14-2016 HCG ( test) Ql (U) Negative Normal [facility] ([place]) Comment on above: Performed By: #### U A, PREGU, UAMICAO ####Andreina [id number] [place], [place] [address] test (u) int HCG not detected. Invalid Interpretation Code [facility] ([place]) Comment on above: Performed By: #### U A, PREGU, UAMICAO ####[address]re[address] [place], [place] [address] Patient Summary Documentson 12-14-2016 Patient Summary Documents Normal [facility] ([place]) UAon 12-14-2016 UA Appear CLEAR [facility] ([place]) Comment on above: Performed By: #### U A, PREGU, UAMICAO ####Andreina [address] [place] [address] UA Blood Negative [facility] ([place]) Comment on above: Performed By: #### U A, PREGU, UAMICAO ####[address]re[address] [place] [address] UA Leuk Est Negative [facility] ([place]) Comment on above: Performed By: #### U A, PREGU, UAMICAO ####[address]re[address] [place] [address] UA Nitrite Negative [facility]) Comment on above: Performed By: #### U A, PREGU, UAMICAO ####[address] [place] [address] UA pH 7.0 [facility]) Comment on above: Performed By: #### U A, PREGU, UAMICAO ####[address] [place] [address] UA Protein Negative [facility] ([place]) Comment on above: Performed By: #### U A, PREGU, UAMICAO ####[address]re[address] [place] [address] UA Spec Grav <=1.005 Abnormal [facility] ([place]) Comment on above: Performed By: #### U A, PREGU, UAMICAO ####Andre[address] [place] [address] UA Specimen Type Void [facility] ([place]) Comment on above: Performed By: #### U A, PREGU, UAMICAO ####Andre[address] [place] [address] UA Urobilinogen 0.2 E.U./dL [facility] ([place]) Comment on above: Performed By: #### U A, PREGU, UAMICAO ####[address]re[address] [place] [address] Urine, color YELLOW Normal [facility] ([place]) Comment on above: Performed By: #### U A, PREGU, UAMICAO ####[address]re[id number] [place], [place] [address] Urine, glucose Negative Normal [facility] ([place]) Comment on above: Performed By: #### U A, PREGU, UAMICAO ####Andre[address] [place], [place] [address] Urine, ketones presence Negative Normal [facility] ([place]) Comment on above: Performed By: #### U A, PREGU, UAMICAO ####Andre[address] [place], [place] [address] Urine, urobilinogen Negative Normal [facility] ([place]) Comment on above: Performed By: #### U A, PREGU, UAMICAO ####Andreina [id number] [place], [place] [address] WRISTon 09-16-2016 WRIST Final ReportAccession No: [id number] Performed: Sep 16 2016 6:39PMExamination: RIGHT [id number] female with right wrist pain.PA, lateral, oblique and navicular views right wrist 09/16/2016 at 6:32 PM:FINDINGS: No acute fracture and no dislocation. Osseous mineralization isnormal. Joint spaces are well-maintained. Soft tissues are unremarkable.IMPRESSION: Unremarkable right wrist radiographs.Interpreting Physician: ALONZO VICTORIA M.D.Trans: : cc: Normal [facility] Vital Signs Date Time Vital Sign Value Performing Clinician Facility 06-18-2024 15:06-0400 Body height 150.5 cm Rakel Love APRN.CNP Work Phone: [facility] 06-18-2024 15:06-0400 Body mass index (BMI) [Ratio] 30.24 kg/m2 Rakel Love APRN.CNP Work Phone: [facility] 06-18-2024 15:06-0400 Body weight 68.49 kg Rakel Love APRN.CNP Work Phone: [facility] 06-18-2024 15:06-0400 Diastolic blood pressure 71 mm[Hg] Rakel Love APRN.[employer] Work Phone: [facility] 06-18-2024 15:06-0400 Systolic blood pressure 112 mm[Hg] Rakel Love APRN.[employer] Work Phone: [facility] 05-23-2024 16:02-0400 Body mass index (BMI) [Ratio] 30.48 kg/m2 Nurse Wstr Work Phone: [facility] 05-23-2024 16:02-0400 Body weight 69.49 kg Nurse Wstr Work Phone: [facility] 05-23-2024 16:02-0400 Diastolic blood pressure 68 mm[Hg] Nurse Wstr Work Phone: [facility] 05-23-2024 16:02-0400 Systolic blood pressure 104 mm[Hg] Nurse Wstr Work Phone: [facility] 05-20-2024 17:40-0400 Body mass index (BMI) [Ratio] 30.64 kg/m2 Roque Pope MD Work Phone: [facility] 05-20-2024 17:40-0400 Body temperature 99 [degF] Roque Pope MD Work Phone: [facility] 05-20-2024 17:40-0400 Body weight 69.85 kg Roque Pope MD Work Phone: [facility] 05-20-2024 17:40-0400 Diastolic blood pressure 70 mm[Hg] Roque Pope MD Work Phone: [facility] 05-20-2024 17:40-0400 Heart rate 92 /min Roque Pope MD Work Phone: [facility] 05-20-2024 17:40-0400 Respiratory rate 16 /min Roque Pope MD Work Phone: [facility] 05-20-2024 17:40-0400 Systolic blood pressure 110 mm[Hg] Roque Pope MD Work Phone: [facility] 02-27-2024 14:01-0500 Body mass index (BMI) [Ratio] 31.23 kg/m2 Nurse Wstr Work Phone: [facility] 02-27-2024 14:01-0500 Body weight 71.22 kg Nurse Wstr Work Phone: [facility] 02-27-2024 14:01-0500 Diastolic blood pressure 68 mm[Hg] Nurse Wstr Work Phone: [facility] 02-27-2024 14:01-0500 Systolic blood pressure 110 mm[Hg] Nurse Wstr Work Phone: [facility] 11-22-2023 17:25-0400 Body mass index (BMI) [Ratio] 29.65 kg/m2 Randy Bojorquez [employer] Work Phone: [facility] 11-22-2023 17:25-0400 Body temperature 98.91 [degF] Randy Bojorquez APRN.[employer] Work Phone: [facility] 11-22-2023 17:25-0400 Body weight 67.6 kg Randy Bojorquez [employer] Work Phone: [facility] 11-22-2023 17:25-0400 Diastolic blood pressure 64 mm[Hg] Randy Bojorquez [employer] Work Phone: [facility] 11-22-2023 17:25-0400 Heart rate 80 /min Randy Bojorquez [employer] Work Phone: [facility] 11-22-2023 17:25-0400 Respiratory rate 18 /min Randy Bojorquez [employer] Work Phone: [facility] 11-22-2023 17:25-0400 SaO2% (BldA) [Mass fraction] 99 % Randy Bojorquez APRN.[employer] Work Phone: [facility] 11-22-2023 17:25-0400 Systolic blood pressure 128 mm[Hg] Randy Bojorquez APRN.[employer] Work Phone: [facility] 10-31-2023 10:56-0400 Body height 151 cm Roque Pope MD Work Phone: [facility] 10-31-2023 10:56-0400 Body mass index (BMI) [Ratio] 30.68 kg/m2 Roque Pope MD Work Phone: [facility] 10-31-2023 10:56-0400 Body weight 69.94 kg Roque Pope MD Work Phone: [facility] 10-31-2023 10:56-0400 Diastolic blood pressure 64 mm[Hg] Roque Pope MD Work Phone: [facility] 10-31-2023 10:56-0400 Heart rate 84 /min Roque Pope MD Work Phone: [facility] 10-31-2023 10:56-0400 SaO2% (BldA) [Mass fraction] 99 % Roque Pope MD Work Phone: [facility] 10-31-2023 10:56-0400 Systolic blood pressure 98 mm[Hg] Roque Pope MD Work Phone: [facility] 10-17-2023 16:15-0400 Body mass index (BMI) [Ratio] 31.1 kg/m2 Nurse Wstr Work Phone: [facility] 10-17-2023 16:15-0400 Body weight 69.85 kg Nurse Wstr Work Phone: [facility] 10-17-2023 16:15-0400 Diastolic blood pressure 70 mm[Hg] Nurse Wstr Work Phone: [facility] 10-17-2023 16:15-0400 Systolic blood pressure 108 mm[Hg] Nurse Wstr Work Phone: [facility] 07-25-2023 09:24-0400 Body mass index (BMI) [Ratio] 32.32 kg/m2 Nurse Wstr Work Phone: [facility] 07-25-2023 09:24-0400 Body weight 72.58 kg Nurse Wstr Work Phone: [facility] 07-25-2023 09:24-0400 Diastolic blood pressure 68 mm[Hg] Nurse Wstr Work Phone: [facility] 07-25-2023 09:24-0400 Systolic blood pressure 110 mm[Hg] Nurse Wstr Work Phone: [facility] 04-17-2023 08:38-0500 Body temperature 98.1 [degF] Sydni Nhan [employer] Work Phone: [facility] 04-17-2023 08:38-0500 Body weight 78.93 kg Sydni Nhan [employer] Work Phone: [facility] 04-17-2023 08:38-0500 Diastolic blood pressure 82 mm[Hg] Sydni Nhan [employer] Work Phone: [facility] 04-17-2023 08:38-0500 Heart rate 73 /min Sydni Nhan [employer] Work Phone: [facility] 04-17-2023 08:38-0500 Respiratory rate 18 /min Sydni Nhan [employer] Work Phone: [facility] 04-17-2023 08:38-0500 SaO2% (BldA) [Mass fraction] 100 % Sydni Nhan [employer] Work Phone: [facility] 04-17-2023 08:38-0500 Systolic blood pressure 128 mm[Hg] Sydni Nhan [employer] Work Phone: [facility] 01-23-2023 14:41-0500 Body temperature 97.9 [degF] Treatment Wstr Work Phone: [facility] 01-23-2023 14:41-0500 Diastolic blood pressure 68 mm[Hg] Treatment Wstr Work Phone: [facility] 01-23-2023 14:41-0500 Heart rate 83 /min Treatment Wstr Work Phone: [facility] 01-23-2023 14:41-0500 Respiratory rate 18 /min Treatment Wstr Work Phone: [facility] 01-23-2023 14:41-0500 SaO2% (BldA) [Mass fraction] 100 % Treatment Wstr Work Phone: [facility] 01-23-2023 14:41-0500 Systolic blood pressure 109 mm[Hg] Treatment Wstr Work Phone: [facility] 12-26-2022 13:55-0400 Body temperature 97.59 [degF] Treatment Wstr Work Phone: [facility] 12-26-2022 13:55-0400 Body weight 76.2 kg Treatment Wstr Work Phone: [facility] 12-26-2022 13:55-0400 Diastolic blood pressure 80 mm[Hg] Treatment Wstr Work Phone: [facility] 12-26-2022 13:55-0400 Heart rate 78 /min Treatment Wstr Work Phone: [facility] 12-26-2022 13:55-0400 Respiratory rate 16 /min Treatment Wstr Work Phone: [facility] 12-26-2022 13:55-0400 SaO2% (BldA) [Mass fraction] 100 % Treatment Wstr Work Phone: [facility] 12-26-2022 13:55-0400 Systolic blood pressure 135 mm[Hg] Treatment Wstr Work Phone: [facility] 12-15-2022 16:02-0400 Body height 149.9 cm Rakel Love APRN.[employer] Work Phone: [facility] 12-15-2022 16:02-0400 Body weight 77.11 kg Rakel Love APRN.[employer] Work Phone: [facility] 12-15-2022 16:02-0400 Diastolic blood pressure 62 mm[Hg] Rakel Love APRN.[employer] Work Phone: [facility] 12-15-2022 16:02-0400 Systolic blood pressure 108 mm[Hg] Rakel Love APRN.[employer] Work Phone: [facility] 11-25-2022 18:18-0400 Body temperature 98.6 [degF] Winnie Athy PA-C Work Phone: [facility] 11-25-2022 18:18-0400 Body weight 75.48 kg Winnie Athy PA-C Work Phone: [facility] 11-25-2022 18:18-0400 Diastolic blood pressure 66 mm[Hg] Winnie Athy PA-C Work Phone: [facility] 11-25-2022 18:18-0400 Heart rate 84 /min Winnie Athy PA-C Work Phone: [facility] 11-25-2022 18:18-0400 Respiratory rate 16 /min Winnie Athy PA-C Work Phone: [facility] 11-25-2022 18:18-0400 SaO2% (BldA) [Mass fraction] 97 % Winnie Athy PA-C Work Phone: [facility] 11-25-2022 18:18-0400 Systolic blood pressure 120 mm[Hg] Winnie Athy PA-C Work Phone: [facility] 11-02-2022 10:22-0400 Body height 149.9 cm Demetrius France MD Work Phone: [facility] 11-02-2022 10:22-0400 Body weight 75.48 kg Demetrius France MD Work Phone: [facility] 10-17-2022 16:42-0400 Body height 149.9 cm Karla Ribakow PA-C Work Phone: [facility] 10-17-2022 16:42-0400 Body weight 74.39 kg Karla Ribakow PA-C Work Phone: [facility] 10-17-2022 16:42-0400 Diastolic blood pressure 68 mm[Hg] Karla Ribakow PA-C Work Phone: [facility] 10-17-2022 16:42-0400 Heart rate 74 /min Karla Ribakow PA-C Work Phone: [facility] 10-17-2022 16:42-0400 SaO2% (BldA) [Mass fraction] 99 % Karla Ribakow PA-C Work Phone: [facility] 10-17-2022 16:42-0400 Systolic blood pressure 126 mm[Hg] Karla Ribakow PA-C Work Phone: [facility] 09-14-2022 10:41-0400 Body height 149.9 cm Demetrius France MD Work Phone: [facility] 09-14-2022 10:41-0400 Body temperature 97.81 [degF] Demetrius France MD Work Phone: [facility] 09-14-2022 10:41-0400 Body weight 78.02 kg Demetrius France MD Work Phone: [facility] 09-14-2022 10:41-0400 Diastolic blood pressure 71 mm[Hg] Demetrius France MD Work Phone: [facility] 09-14-2022 10:41-0400 Heart rate 85 /min Demetrius France MD Work Phone: [facility] 09-14-2022 10:41-0400 SaO2% (BldA) [Mass fraction] 98 % Demetrius France MD Work Phone: [facility] 09-14-2022 10:41-0400 Systolic blood pressure 138 mm[Hg] Demetrius France MD Work Phone: [facility] 09-12-2022 13:17-0400 Body temperature 99.7 [degF] Winnie Athy PA-C Work Phone: [facility] 09-12-2022 13:17-0400 Body weight 79.83 kg Winnie Athy PA-C Work Phone: [facility] 09-12-2022 13:17-0400 Diastolic blood pressure 72 mm[Hg] Winnie Athy PA-C Work Phone: [facility] 09-12-2022 13:17-0400 Heart rate 92 /min Winnie Athy PA-C Work Phone: [facility] 09-12-2022 13:17-0400 Respiratory rate 16 /min Winnie Athy PA-C Work Phone: [facility] 09-12-2022 13:17-0400 SaO2% (BldA) [Mass fraction] 98 % Winnie Athy PA-C Work Phone: [facility] 09-12-2022 13:17-0400 Systolic blood pressure 124 mm[Hg] Winnie Athy PA-C Work Phone: [facility] 09-12-2022 10:52-0400 Body height 149.9 cm Karla Ribakow PA-C Work Phone: [facility] 09-12-2022 10:52-0400 Body temperature 97.9 [degF] Karla Ribakow PA-C Work Phone: [facility] 09-12-2022 10:52-0400 Body weight 79.38 kg Karla Ribakow PA-C Work Phone: [facility] 09-12-2022 10:52-0400 Diastolic blood pressure 73 mm[Hg] Karla Ribakow PA-C Work Phone: [facility] 09-12-2022 10:52-0400 Heart rate 97 /min Karla Ribakow PA-C Work Phone: [facility] 09-12-2022 10:52-0400 Respiratory rate 18 /min Karla Ribakow PA-C Work Phone: [facility] 09-12-2022 10:52-0400 SaO2% (BldA) [Mass fraction] 98 % Karla Ribakow PA-C Work Phone: [facility] 09-12-2022 10:52-0400 Systolic blood pressure 135 mm[Hg] Karla Ribakow PA-C Work Phone: [facility] 05-30-2022 14:19-0400 Body height 150.3 cm NA Parkinson PA-C Work Phone: [facility] 05-30-2022 14:19-0400 Body weight 73.94 kg NA Parkinson PA-C Work Phone: [facility] 05-30-2022 14:19-0400 Diastolic blood pressure 60 mm[Hg] NA Parkinson PA-C Work Phone: [facility] 05-30-2022 14:19-0400 Heart rate 86 /min NA Parkinson PA-C Work Phone: [facility] 05-30-2022 14:19-0400 Respiratory rate 16 /min NA Parkinson PA-C Work Phone: [facility] 05-30-2022 14:19-0400 SaO2% (BldA) [Mass fraction] 98 % NA Parkinson PA-C Work Phone: [facility] 05-30-2022 14:19-0400 Systolic blood pressure 112 mm[Hg] NA Parkinson PA-C Work Phone: [facility] 04-22-2022 14:57-0500 Body weight 73.48 kg NA Parkinson PA-C Work Phone: [facility] 04-22-2022 14:57-0500 Diastolic blood pressure 66 mm[Hg] NA Parkinson PA-C Work Phone: [facility] 04-22-2022 14:57-0500 Heart rate 72 /min NA Parkinson PA-C Work Phone: [facility] 04-22-2022 14:57-0500 Respiratory rate 16 /min NA Parkinson PA-C Work Phone: [facility] 04-22-2022 14:57-0500 SaO2% (BldA) [Mass fraction] 98 % NA Parkinson PA-C Work Phone: [facility] 04-22-2022 14:57-0500 Systolic blood pressure 124 mm[Hg] NA Parkinson PA-C Work Phone: [facility] 01-03-2022 17:11-0500 Body temperature 98.91 [degF] Randy Reno [employer] Work Phone: [facility] 01-03-2022 17:11-0500 Body weight 73.48 kg Randy Reno [employer] Work Phone: [facility] 01-03-2022 17:11-0500 Diastolic blood pressure 70 mm[Hg] Randy Reno [employer] Work Phone: [facility] 01-03-2022 17:11-0500 Heart rate 72 /min Randy Reno [employer] Work Phone: [facility] 01-03-2022 17:11-0500 Respiratory rate 16 /min Randy Reno [employer] Work Phone: [facility] 01-03-2022 17:11-0500 SaO2% (BldA) [Mass fraction] 98 % Randy Reno [employer] Work Phone: [facility] 01-03-2022 17:11-0500 Systolic blood pressure 122 mm[Hg] Randy Reno [employer] Work Phone: [facility] 10-25-2021 15:55-0400 Body temperature 98.2 [degF] NA Parkinson PA-C Work Phone: [facility] 10-25-2021 15:55-0400 Body weight 73.48 kg NA Parkinson PA-C Work Phone: [facility] 10-25-2021 15:55-0400 Diastolic blood pressure 78 mm[Hg] NA Parkinson PA-C Work Phone: [facility] 10-25-2021 15:55-0400 Heart rate 74 /min NA Parkinson PA-C Work Phone: [facility] 10-25-2021 15:55-0400 Respiratory rate 16 /min NA Parkinson PA-C Work Phone: [facility] 10-25-2021 15:55-0400 SaO2% (BldA) [Mass fraction] 100 % NA Parkinson PA-C Work Phone: [facility] 10-25-2021 15:55-0400 Systolic blood pressure 118 mm[Hg] NA Parkinson PA-C Work Phone: [facility] 11-02-2017 05:06-0400 Body weight Measured 60.3288 kg [facility] Comment on above: Performed By: #### [id number] #### [place] [address] Encounters Encounter Date Encounter Type Care Provider Facility Start: 06-19-2024 End: 06-25-2024 Follow-up encounter Rakel Love APRN.CNP Work Phone: OB/Gynecology Start: 06-18-2024 End: 06-18-2024 Patient encounter procedure Rakel Love APRN.CNP Work Phone: OB/Gynecology Comment on above: Encounter for gyneco logical examination (general) (routine) without abnormal findings (Primary Dx); Encounter for Papanicolaou smear for cervical cancer screening; Special screening examination for human papillomavirus (HPV); Long-term use of immunosuppressant medication; Screen for STD (sexually transmitted disease); Encounter for surveillance of injectable contraceptive Start: 06-18-2024 End: 06-18-2024 Patient encounter status Rakel Love APRN.CNP Work Phone: [facility] Start: 06-18-2024 End: 06-18-2024 ambulatory RAKEL LOVE Facility:[facility] Start: 06-18-2024 Encounter for gynecological examination (general) (routine) without abnormal findings RAKEL LOVE [facility] Start: 06-18-2024 End: 06-25-2024 Telephone encounter Roque Pope MD Work Phone: [facility] [place] Comment on above: Forms ([facility] Start [facility] program) Start: 05-23-2024 End: 05-23-2024 ambulatory ROQUE POPE Facility:[facility] Start: 05-23-2024 End: 05-23-2024 Nursing evaluation of patient and report Nurse Efficiency Expert [facility] Wstr Work Phone: OB/Gynecology Comment on above: Depo-Provera contrac eptive status (Primary Dx); Encounter for surveillance of other contraceptive Start: 05-20-2024 End: 05-20-2024 ambulatory ROQUE POPE Facility:[facility] Start: 05-20-2024 End: 05-20-2024 Patient encounter procedure Roque Pope MD Work Phone: [facility] [place] Comment on above: Crohn's disease of b oth small and large intestine with complication (HCC) (Primary Dx); Anxiety; Screening for depression Start: 05-18-2024 End: 05-20-2024 Refill Adele Dickson APRN.CNP Work Phone: OB/Gynecology Comment on above: Refill Request Start: 05-16-2024 End: 05-16-2024 ambulatory Karla Ribakow PA-C Work Phone: Gastroenterology Comment on above: Switch pharmacy Start: 05-01-2024 End: 05-01-2024 Refill Karla Ribakow PA-C Work Phone: [facility] [place] Comment on above: Refill Request (Annalisa esquivel OBI) Start: 04-22-2024 End: 04-22-2024 ambulatory KARLA RIBAKOW Facility:[facility] Start: 04-18-2024 End: 04-18-2024 ambulatory Karla Ribakow PA-C Work Phone: Gastroenterology Comment on above: Crohn's disease of b oth small and large intestine with complication (HCC) (Primary Dx) Start: 04-18-2024 End: 04-18-2024 Telemedicine consultation with patient Karla Ribakow PA-C Work Phone: Gastroenterology Start: 04-17-2024 End: 04-17-2024 Telephone encounter Roque Pope MD Work Phone: [facility] [place] Comment on above: Letter (No show amaya er) Start: 04-10-2024 End: 04-10-2024 Telephone encounter Roque Pope MD Work Phone: [facility] [place] Comment on above: Patient Update Start: 04-06-2024 End: 04-10-2024 Telephone encounter Roque Pope MD Work Phone: [facility] [place] Comment on above: Insurance Authorizat ion (venlafaxine ER) Start: 04-03-2024 End: 04-03-2024 Refill Roque Pope MD Work Phone: [facility] [place] Comment on above: Refill Request Start: 02-27-2024 End: 02-27-2024 Nursing evaluation of patient and report Nurse Efficiency Expert [facility] Work Phone: OB/Gynecology Comment on above: Encounter for manage ment and injection of depo-Provera (Primary Dx) Start: 02-27-2024 End: 02-27-2024 ambulatory ROQUE POPE Facility:[facility] Start: 02-16-2024 End: 02-16-2024 Refill Karla Noriega PA-C Work Phone: [facility] Comment on above: Refill Request Start: 02-15-2024 End: 02-15-2024 ambulatory Joseline Keys [facility] Start: 02-15-2024 End: 02-15-2024 Follow-up encounter Joseline Keys [facility] Comment on above: SPP Inflammatory Con ditions - Follow-up (Skyrizi OBI); Insurance Authorization ([place] Renew[place] Submitted (New Insurance)) Start: 12-18-2023 End: 12-18-2023 Specialty Pharmacy Joseline Keys [facility] Comment on above: SPP Inflammatory Con ditions - Medication Refill (Skyrizi OBI) Start: 11-22-2023 End: 11-22-2023 [facility] Start: 11-22-2023 End: 11-22-2023 Patient encounter procedure Randy Bojorquez APRNFacundoAR Work Phone: [facility] Comment on above: Rhus dermatitis (Carrol elaine Dx); Secondary infection of skin Start: 10-31-2023 End: 10-31-2023 ambulatory [facility] Facility:[facility] Start: 10-31-2023 Encounter for genera l adult medical examination without abnormal findings ROQUE POPE [facility] Start: 10-31-2023 End: 10-31-2023 Patient encounter procedure Roque Pope MD Work Phone: [facility] [place] Comment on above: Well adult exam (Carrol elaine Dx); Small bowel obstruction (HCC); S/P small bowel resection; Crohn's disease of both small and large intestine with complication (HCC); Nicotine use disorder, F17.2; Anxiety; History of small bowel obstruction; Atypical squamous cell changes of undetermined significance (ASCUS) on cervical cytology with positive high risk human papilloma virus (HPV); Class 1 obesity with body mass index (BMI) of 30.0 to 30.9 in adult, unspecified obesity type, unspecified whether serious comorbidity present Start: 10-31-2023 End: 10-31-2023 Patient encounter status Roque Pope MD Work Phone: [facility] Start: 10-19-2023 End: 10-19-2023 Specialty Pharmacy Joseline Keys [facility] Comment on above: SPP Inflammatory Con ditions - Medication Refill (Skyrizi - NCA 08/2023) Start: 10-17-2023 End: 10-17-2023 ambulatory [facility] Facility:[facility] Start: 10-17-2023 End: 10-17-2023 Nursing evaluation of patient and report Nurse Efficiency Expert [facility] Work Phone: OB/Gynecology Comment on above: Encounter for manage ment and injection of depo-Provera (Primary Dx) Start: 09-19-2023 Refill Karla Noriega PA-C Work Phone: Hematology/Oncology Comment on above: Refill Request Start: 08-23-2023 Specialty Pharmacy [facility]eline [facility] Comment on above: SPP Inflammatory Con ditions - Medication Refill (Skyrizi OBI - NCA 08/2023) SPP Inflammatory Con ditions - Follow-up (Skyrizi OBI); Insurance Authorization ([place] Renew[place] Submitted) Start: 07-25-2023 End: 07-25-2023 ambulatory [facility] Facility:[facility] Start: 07-25-2023 End: 07-25-2023 Nursing evaluation of patient and report Nurse Efficiency Expert [facility] Work Phone: OB/Gynecology Comment on above: Encounter for manage ment and injection of depo-Provera (Primary Dx) Start: 06-30-2023 Specialty Pharmacy [facility]eline [facility] Comment on above: SPP Inflammatory Con ditions - Medication Refill (Skyrizi) Start: 06-28-2023 End: 06-28-2023 Patient encounter procedure Rakel Love APRN.[employer]INTER [employer] Work Phone: OB/Gynecology Comment on above: Obesity, unspecified classification, unspecified obesity type, unspecified whether serious comorbidity present (Primary Dx) Start: 05-03-2023 Specialty Pharmacy [facility]eline [facility] Comment on above: SPP Inflammatory Con ditions - Medication Refill (Skyrizi) Refill Request Start: 04-26-2023 End: 04-26-2023 Nursing evaluation of patient and report Nurse Efficiency Expert [facility] Work Phone: OB/Gynecology Comment on above: Depo-Provera contrac eptive status (Primary Dx); Encounter for management and injection of depo-Provera Start: 04-17-2023 End: 04-17-2023 Patient encounter procedure Sydni Justin APRN.[employer]INTER AIR[employer]FT [facility] Comment on above: Muscle strain (Prima ry Dx) Start: 01-23-2023 End: 01-23-2023 ambulatory Treatment Rm 13 Addy [facility] Work Phone: Hematology/Oncology Comment on above: Crohn's disease of b oth small and large intestine with complication (HCC) (Primary Dx) Start: 12-26-2022 End: 12-26-2022 ambulatory Nitza Sargent [facility] Comment on above: Crohn's disease of b oth small and large intestine with complication (HCC) (Primary Dx) Start: 12-26-2022 Patient encounter procedure Nitza Arie [facility] Comment on above: SPP Inflammatory Con ditions - Treatment Referral (Jamaal); Insurance Authorization ([place] Submission Pending) Start: 12-15-2022 End: 12-15-2022 Patient encounter procedure Rakel Love APRN.[employer] Work Phone: OB/Gynecology Comment on above: Encounter for gyneco logical examination (general) (routine) without abnormal findings (Primary Dx); Malaise and fatigue; Class 1 obesity with body mass index (BMI) of 34.0 to 34.9 in adult, unspecified obesity type, unspecified whether serious comorbidity present Start: 12-15-2022 End: 12-15-2022 Patient encounter status Rakel Love APRN.[employer]INTER [employer] Work Phone: [facility] Start: 12-14-2022 Telephone encounter Wilbert wilder MD Work Phone: Hematology/Oncology Comment on above: Appointment; Orders Start: 12-12-2022 End: 12-12-2022 Nursing evaluation of patient and report Mi Nurse Work Phone: Family [facility] [place] Comment on above: Need for vaccination (Primary Dx) Start: 11-25-2022 End: 11-25-2022 Patient encounter procedure Winnie Richards PA-C Work Phone: [facility] Comment on above: Ganglion cyst (Prima ry Dx) Start: 11-02-2022 End: 11-02-2022 Patient encounter procedure Demetrius France MD Work Phone: Colorectal Surgery Comment on above: Crohn's disease of s mall intestine with complication (HCC) (Primary Dx) Start: 10-20-2022 Orders Only Karla Noriega PA-C Work Phone: Gastroenterology Start: 10-18-2022 ambulatory Karla Ribakow PA-C Work Phone: Gastroenterology Comment on above: Glucose Start: 10-17-2022 End: 10-17-2022 Patient encounter procedure Karlaisrael Taylorw PA-C Work Phone: Gastroenterology Comment on above: Crohn's disease of s mall and large intestines with complication (HCC) (Primary Dx) Start: 09-23-2022 Telephone encounter Fredrick Jauregui RN NOC Comment on above: Follow Up Phone Call (Post Discharge F/U - attempt made. No answer. //) Start: 09-14-2022 End: 09-14-2022 Patient encounter procedure Demetrius France MD Work Phone: Colorectal Surgery Comment on above: Crohn's disease of b oth small and large intestine with complication (HCC) (Primary Dx) Start: 09-12-2022 Telephone encounter Demetrius hsu MD Work Phone: Colorectal Surgery Comment on above: Patient Question Returning Patient's Call Start: 09-12-2022 End: 09-12-2022 Patient encounter procedure Karla Taylorw PA-C Work Phone: Gastroenterology Comment on above: Crohn's disease of s mall and large intestines with complication (HCC) (Primary Dx) Strep pharyngitis (P rimary Dx) Start: 09-09-2022 Telephone encounter Sonya Medeiros APRN.[employer]INTER [employer]FT Work Phone: Pre Anesthesia Comment on above: Request for outside medical records (ER visit and EKG) Pre-op Bowel Prep? Start: 09-07-2022 Telephone encounter Demetrius hsu MD Work Phone: Colorectal Surgery Comment on above: Patient Update Start: 09-02-2022 Telephone encounter Alvina Hobbs RN Colorectal Surgery Comment on above: Compo Caster - O ther Start: 08-29-2022 Orders Only Karla Ribakow PA-C Work Phone: Gastroenterology Comment on above: What to do? Start: 08-25-2022 ambulatory Demetrius hutchins MD Work Phone: Colorectal Surgery Start: 08-24-2022 Telephone encounter Alvina Hobbs RN Colorectal Surgery Comment on above: Compo Caster - O ther Patient Update Established Patient Start: 08-24-2022 End: 08-24-2022 Subsequent hospital visit by physician Ct [facility] (I-Stat) Work Phone: Cat Scan Comment on above: Crohn's disease of s mall and large intestines with complication (HCC) [K50.819] Start: 08-23-2022 Telephone encounter Tad mas MD Work Phone: Gastroenterology Comment on above: Returning Patient's Call Start: 08-19-2022 Telephone encounter Alvina Hobbs RN Colorectal Surgery Comment on above: Compo Caster - O ther Start: 08-17-2022 End: 08-17-2022 ambulatory Karla Noriega PA-C Work Phone: Gastroenterology Comment on above: Crohn's disease of s mall and large intestines with complication (HCC) (Primary Dx) Test results in 2019 Start: 08-17-2022 End: 08-17-2022 Telemedicine consultation with patient Karlaisrael Marrufosilvino CARRERA Work Phone: [facility] Start: 08-12-2022 Telephone encounter Karri fallon MD Work Phone: [facility] Comment on above: Appointment Start: 08-09-2022 ambulatory Tad Morton MD Work Phone: Gastroenterology Comment on above: Colonoscopy procedur e Start: 07-29-2022 Telephone encounter Tad mas MD Work Phone: Gastroenterology Comment on above: Orders Start: 06-29-2022 End: 06-29-2022 Nursing evaluation of patient and report Mi Nurse Work Phone: [facility] [place] Comment on above: Need for vaccination (Primary Dx) Start: 06-13-2022 Telephone encounter Cory Parkinson PA-C Work Phone: Family [facility] [place] Comment on above: Orders Start: 06-10-2022 End: 06-10-2022 Nursing evaluation of patient and report Mi Nurse Work Phone: Family [facility] [place] Comment on above: Screening-pulmonary TB (Primary Dx) Start: 06-08-2022 End: 06-08-2022 Subsequent hospital visit by physician [facility] Work Phone: Radiology Comment on above: Thyromegaly [E01.0] Start: 06-08-2022 End: 06-08-2022 Nursing evaluation of patient and report Mi Nurse Work Phone: Family [facility] [place] Comment on above: Screening-pulmonary TB (Primary Dx) Start: 06-03-2022 ambulatory Cory alvarez PA-C Work Phone: [facility] [place] Comment on above: Shot Records Start: 06-03-2022 Telephone encounter Cory Parkinson PA-C Work Phone: [facility] [place] Comment on above: Orders Start: 06-01-2022 End: 06-01-2022 Nursing evaluation of patient and report Mi Nurse Work Phone: [facility] [place] Comment on above: Screening-pulmonary TB (Primary Dx) Start: 05-30-2022 End: 05-30-2022 Patient encounter procedure Cory Parkinson PA-C Work Phone: [facility] [place] Comment on above: Adjustment disorder with anxiety (Primary Dx); Vaping nicotine dependence, non-tobacco product; Crohn's disease of small intestine with intestinal obstruction (HCC); SBO (small bowel obstruction) (HCC); Need for vaccination; Screening for lipid disorders; Thyromegaly; Screening-pulmonary TB; Well adult exam Start: 05-30-2022 End: 05-30-2022 Patient encounter status Cory Parkinson PA-C Work Phone: [facility] [place] Start: 04-27-2022 ambulatory Nurse Nurse [facility] Start: 04-22-2022 End: 04-22-2022 Patient encounter procedure Cory Parkinson PA-C Work Phone: [facility] [place] Comment on above: Adjustment disorder with anxiety (Primary Dx); Vaping nicotine dependence, non-tobacco product; SBO (small bowel obstruction) (HCC) Start: 04-20-2022 Refill Cory ESTRADAC Work Phone: [facility] [place] Comment on above: Refill Request Missed appointments Start: 04-19-2022 Telephone encounter Tad mas MD Work Phone: Gastroenterology Comment on above: Compo Caster - O ther Start: 02-18-2022 End: 02-18-2022 ambulatory Tad Morton MD Work Phone: Gastroenterology Comment on above: Crohn's disease of b oth small and large intestine with intestinal obstruction (HCC) (Primary Dx) Start: 02-18-2022 End: 02-18-2022 Telemedicine consultation with patient Tad Morton MD Work Phone: [facility] Start: 02-11-2022 Patient Outreach Mckenzie Hunter RN Work Phone: Cancer Genetics Assistant Management Comment on above: Transition Of Care ( Initial tcm outreach d/c [facility] on 02/10/22, 2nd Attempt. ) Start: 01-03-2022 End: 01-03-2022 Patient encounter procedure Randy Bojorquez APRN.CNP Work Phone: [facility] Comment on above: Neck pain (Primary D x) Start: 10-28-2021 Telephone encounter Cory Parkinson PA-C Work Phone: [facility] [place] Comment on above: Patient Question Start: 10-25-2021 End: 10-25-2021 Patient encounter procedure Cory Parkinson PA-C Work Phone: [facility] [place] Comment on above: Adjustment disorder with anxiety (Primary Dx) Start: 07-28-2021 Refill Tad Morton MD Work Phone: Gastroenterology Comment on above: Refill Request Start: 07-22-2021 Telephone encounter Tad msa MD Work Phone: Gastroenterology Comment on above: Medication Authoriza tion Start: 12-12-2019 End: 12-12-2019 Subsequent hospital visit by physician Ashli [facility] [place] Work Phone: Radiology Comment on above: Chronic pain of both knees [M25.561, M25.562, G89.29] Start: 03-23-2018 End: 03-24-2018 Patient encounter procedure José Antonio A [place] Facility:[facility] Start: 03-16-2018 End: 03-17-2018 Patient encounter procedure José Antonio A [place] Facility:[facility] Start: 03-16-2018 End: 03-17-2018 Patient encounter procedure José Antonio A [place] Facility:[facility] Start: 03-16-2018 Patient encounter procedure PCP UNKNOWN Facility:[id number] Start: 02-15-2018 End: 02-16-2018 Patient encounter procedure José Antonio A [place] Facility:[facility] Start: 01-26-2018 End: 01-27-2018 Patient encounter procedure José Antonio A [place] Facility:[facility] Start: 01-12-2018 End: 01-13-2018 Patient encounter procedure Carine Paredes Facility:[facility] Start: 12-13-2017 End: 12-14-2017 Patient encounter procedure José Antonio A [facility] Start: 11-29-2017 End: 11-29-2017 Patient encounter procedure José Antonio A [place] Facility:[facility] Start: 11-21-2017 End: 11-22-2017 Patient encounter procedure José Antonio A [place] Facility:[facility] Start: 11-21-2017 Patient encounter procedure PCP UNKNOWN Facility:[id number] Start: 10-31-2017 End: 11-01-2017 Patient encounter procedure José Antonio A [place] Facility:[facility] Start: 10-31-2017 Patient encounter procedure PCP UNKNOWN Facility:[id number] Start: 10-09-2017 End: 10-10-2017 Patient encounter procedure Elzbieta Russell Facility:[facility] Start: 10-09-2017 Patient encounter procedure PCP UNKNOWN Facility:[id number] Start: 10-07-2017 End: 10-07-2017 Patient encounter procedure Adriana Junior Facility:[facility] Start: 10-06-2017 End: 10-06-2017 Patient encounter procedure Adriana Junior Facility:[facility] Start: 10-03-2017 End: 10-04-2017 Patient encounter procedure José Antonio A [place] Facility:[facility] Start: 09-26-2017 End: 09-26-2017 Patient encounter procedure José Antonio A [place] Facility:[facility] Start: 09-21-2017 Patient encounter procedure LULY BARFIELD Facility:[facility] Start: 09-21-2017 End: 09-22-2017 Evaluation and management of inpatient PARAM SAM Facility:[facility] Start: 09-04-2017 End: 09-05-2017 Patient encounter procedure José Antonio A [place] Facility:[facility] Start: 07-13-2017 End: 07-14-2017 Patient encounter procedure Adriana Junior Facility:[facility] Start: 07-13-2017 End: 07-14-2017 Patient encounter procedure Adriana Junior Facility:[facility] Start: 07-04-2017 End: 07-05-2017 Patient encounter procedure Adriaan Junior Facility:[facility] Start: 06-22-2017 End: 06-23-2017 Patient encounter procedure [facility] Start: 02-09-2017 End: 02-09-2017 Emergency department patient visit AMANDEEP LINCOLN Facility:B Start: 01-18-2017 End: 01-19-2017 Ambulatory PHY WO ID~[id number] REFERRING Facility:[facility] Start: 01-18-2017 End: 01-18-2017 Emergency department patient visit MYKE HARKINS Facility:[facility] Start: 01-12-2017 End: 01-13-2017 Ambulatory LONNIE CRUZ Facility:[id number] Start: 12-18-2016 End: 12-18-2016 Emergency department patient visit EDMUND METZGER Facility:[facility] Start: 12-16-2016 End: 12-16-2016 Emergency department patient visit OLGA PARKER Facility:[facility] Start: 12-14-2016 End: 12-14-2016 Emergency department patient visit CHARISSA PELLETIER Facility:[facility] Start: 09-16-2016 End: 09-16-2016 Emergency department patient visit Skyler Oconnor Facility:[facility] Date Procedure Procedure Detail Performing Clinician Start: 06-18-2024 Iadna chlamydia trachomatis amplified probe tq Rakel Love [employer] Work Phone: Start: 05-20-2024 Adult depression scr eening assessment Adele Yessi [employer] Work Phone: Start: 02-27-2024 UA DIP,URINE HCG (POC) Kamila Long RN Start: 04-26-2023 Urine test visual color cmprsn meths Nitza Rader MD Work Phone: Start: 09-12-2022 STREP A MOLECULAR (POC) Winnie Richards PA-C Work Phone: Start: 08-24-2022 Ct abdomen & pelvis w/contrast material Karla Noriega PA-C Work Phone: Start: 06-08-2022 Us soft tissue head & neck real time imge docm Cory Nixon Parkinson PA-C Work Phone: Start: 05-30-2022 Skin test tuberculos is intradermal Cory Parkinson PA-C Work Phone: Start: 12-12-2019 Radiologic exam knee complete 4/more views Cory Nixon Parkinson PA-C Work Phone: Start: 09-26-2017 Antibody screen PARAM SAM Comment on above: Order Comment: TEST TYPE + SCREEN WAS CANCELLED, 09/26/2017 15:46 DUPLICATE ORDER. Performed By: #### T +S ####[id number] [place] [address] Start: 09-22-2017 Antibody screen [facility] Comment on above: Order Comment: TEST TYPE + SCREEN WAS CANCELLED, 09/22/2017 15:56 DUPLICATE ORDER see [id number]. Result Comment: This is a corrected result. Previous value was NEG, verified at 09/21/2017 11:03 Performed By: #### T +S #### [facility] [id number] [place] [address] Plan of Treatment Date Care Activity Detail Author Start: 01-28-2028 Urine microalbumin profile [facility] Start: 12-15-2026 HPV TESTING HPV TESTING [facility] Start: 12-15-2026 PAP TESTING PAP TESTING [facility] Start: 12-15-2026 Screening for malignant neoplasm of cervix [facility] Start: 08-28-2025 PAP TESTING PAP TESTING [facility] Start: 06-18-2025 Screening for malignant neoplasm of cervix Cervical Cancer Screening [facility] Start: 06-18-2025 End: 06-18-2025 Patient encounter procedure 06/18/2025 10:00 AM EDT Office Visit OB/Gynecology [address] [place] [address] Rakel Love APRN.[employer]INTER [employer]FT [address] [place] [address] Annual OB/Gynecology Comment on above: Annual Start: 05-20-2025 Depression Screening Depression Screening [facility] Start: 12-02-2024 End: 12-02-2024 Patient encounter procedure 12/02/2024 8:40 AM EDT Office Visit Family [facility] [address] [place] [address] Roque Pope MD [address] [place] [address] 6 mo follow up [facility] Comment on above: 6 mo follow up Start: 10-30-2024 Covid-19 Vaccine ( season) Covid-19 Vaccine () [facility] Comment on above: Postponed from 10/29/2023 (Declined at t his time) Start: 10-30-2024 Covid-19 Vaccine ( season) Covid-19 Vaccine () [facility] Comment on above: Postponed from 10/29/2023 (Declined at t his time) Start: 08-16-2024 End: 08-16-2024 Nursing evaluation of patient and report 08/16/2024 9:00 AM EDT Nurse Visit OB/Gynecology [address] [place] [address] Wstr, Nurse Efficiency Expert [facility] [address] [place] [address] Depo OB/Gynecology Comment on above: Depo Start: 06-17-2024 End: 06-17-2024 Patient encounter procedure 06/17/2024 4:00 PM EDT Office Visit OB/Gynecology [address] [place] [address] Adele Dickson APRN.[employer]INTER [employer]FT [address] [place] [address] Annual OB/Gynecology Comment on above: Annual Start: 05-23-2024 End: 05-23-2024 Nursing evaluation of patient and report 05/23/2024 4:00 PM EDT Nurse Visit OB/Gynecology [address] [place] [address] Wstr, Nurse Efficiency Expert [facility] [address] [place] [address] Depo OB/Gynecology Comment on above: Depo Start: 05-20-2024 End: 05-20-2024 Patient encounter procedure 05/20/2024 5:20 PM EDT Office Visit [facility] [address] [place] [address] Roque Pope MD [address] [place] [address] follow up on meds [facility] [place] Comment on above: follow up on meds Start: 05-20-2024 End: 05-20-2024 Nursing evaluation of patient and report 05/20/2024 11:00 AM EDT Nurse Visit OB/Gynecology [address] [place] [address] Wstr, Nurse Efficiency Expert [facility] [address] [place] [address] Depo OB/Gynecology Comment on above: Depo Start: 04-18-2024 End: 04-18-2024 Follow-up encounter 04/18/2024 3:00 PM [facility] [address] [address] Karla Noriega PA-C [address] [address] follow up crohns Gastroenterology Comment on above: follow up crohns Start: 04-18-2024 End: 07-18-2024 25-hydroxyvitamin D3 [Mass/volume] in Serum or Plasma VITAMIN D 25 HYDROXY Lab Routine Crohn's disease of both small and large intestine with complication (HCC) Expected: 04/18/2024, Expires: 07/18/2024 [facility] Comment on above: Expected: 04/18/2024, Expires: Start: 04-18-2024 End: 07-18-2024 BLOOD TB SCREEN BLOOD TB SCREEN Lab Routine Crohn's disease of both small and large intestine with complication (HCC) Expected: 04/18/2024, Expires: 07/18/2024 [facility] Comment on above: Expected: 04/18/2024, Expires: Start: 04-18-2024 End: 07-18-2024 C reactive protein [Mass/volume] in Serum or Plasma C-REACTIVE PROTEIN Lab Routine Crohn's disease of both small and large intestine with complication (HCC) Expected: 04/18/2024, Expires: 07/18/2024 [facility] Comment on above: Expected: 04/18/2024, Expires: Start: 04-18-2024 End: 07-18-2024 CBC W Auto Differential panel - Blood COMPLETE BLOOD COUNT AND DIFFERENTIAL Lab Routine Crohn's disease of both small and large intestine with complication (HCC) Expected: 04/18/2024, Expires: 07/18/2024 [facility] Work Phone: Comment on above: Expected: 04/18/2024, Expires: Start: 04-18-2024 End: 07-18-2024 Cobalamin (Vitamin B12) [Mass/volume] in Serum or Plasma VITAMIN B12 Lab Routine Crohn's disease of both small and large intestine with complication (HCC) Expected: 04/18/2024, Expires: 07/18/2024 [facility] Comment on above: Expected: 04/18/2024, Expires: Start: 04-18-2024 End: 07-18-2024 Comprehensive metabolic 2000 panel - Serum or Plasma COMPREHENSIVE METABOLIC PANEL Lab Routine Crohn's disease of both small and large intestine with complication (HCC) Expected: 04/18/2024, Expires: 07/18/2024 [facility] Comment on above: Expected: 04/18/2024, Expires: Start: 04-17-2024 End: 04-17-2024 Patient encounter procedure 04/17/2024 11:20 AM EST Office Visit [facility] [address] [place], [place] [address] Roque Pope MD [address] [place] [address] 3 month f/u medication [facility] Comment on above: 3 month f/u medication Start: 04-11-2024 End: 04-11-2024 Patient encounter procedure 04/11/2024 11:00 AM EST Office Visit [facility] [address] [place] [address] Roque Pope MD [address] [place] [address] 3 month f/u medication [facility] Comment on above: 3 month f/u medication Start: 02-16-2024 End: 02-16-2024 Specialty Pharmacy 02/16/2024 9:00 AM EST Specialty Pharmacy [facility] [address] [place] [address] [id number] [place] [address] Pharmacist, [facility] [address] [place] [id number] Refill- Skyrizi OBI- PAx- 08/21/24 - ND 02/21-new ins renewal sub 02/14 [facility] Comment on above: Refill- Skyrizi OBI- PAx- 08/21/24 - ND 1 04/24-new ins renewal sub 02/14 Start: 01-09-2024 End: 01-09-2024 Nursing evaluation of patient and report 01/09/2024 4:00 PM EST Nurse Visit OB/Gynecology [address] [place] [address] Wstr, Nurse Efficiency Expert [facility] [address] [place] [address] [facility] Comment on above: Depo Start: 12-21-2023 End: 12-21-2023 Specialty Pharmacy 12/21/2023 9:00 AM EDT Specialty Pharmacy [id number] [place] [address] Pharmacist, [facility] [address] [place] [address] [address] [place], [place] [id number] Refill- Skyrizi OBI- PAx- 08/21/24 - ND 12/27-l/m 12/17 [facility] Comment on above: Refill- Skyrizi OBI- PAx- 6/ - ND 1 -l/m 12/17 Start: 12-19-2023 End: 12-19-2023 Patient encounter procedure 12/19/2023 4:00 PM EDT Office Visit OB/Gynecology [address] [place] [address] Rakel Love, BYRON.[employer]INTER AIRCRAFT [address] [place] [address] Annual [facility]/Gynecology Comment on above: Annual Start: 12-18-2023 End: 12-18-2023 Specialty [facility] Comment on above: Refill- Skyrizi OBI- NCA 08/2023- PAx- 6/ - ND 12/27 Refill- Skyrizi OBI- PAx- 6/ - ND 12/27 Start: 11-28-2023 End: 11-28-2023 Patient encounter procedure 11/28/2023 9:20 AM EDT Office Visit [facility] [address] [facility] [place] [address] Kandice Harman APRN.PAINTER AIRCRAFT [address] [facility] [place] [address] 4 week follow up from starting Effexor Family [facility] Comment on above: 4 week follow up from starting Effexor Start: 10-31-2023 End: 01-30-2024 CBC W Auto Differential panel - Blood COMPLETE BLOOD COUNT AND DIFFERENTIAL Lab Routine Crohn's disease of both small and large intestine with complication (HCC) Well adult exam Expected: 10/31/2023, Expires: 01/30/2024 [facility] Work Phone: Comment on above: Expected: 10/31/2023, Expires: Start: 10-31-2023 End: 01-30-2024 Comprehensive metabolic 2000 panel - Serum or Plasma COMPREHENSIVE METABOLIC PANEL Lab Routine Crohn's disease of both small and large intestine with complication (HCC) Well adult exam Expected: 10/31/2023, Expires: 01/30/2024 [facility] Comment on above: Expected: 10/31/2023, Expires: Start: 10-31-2023 Depression Screening Depression Screening [facility] Comment on above: Postponed from 08/02/2009 (Declined at t his time) Start: 10-31-2023 End: 01-30-2024 Lipid 1996 panel - Serum or Plasma LIPID PANEL BASIC Lab Routine Class 1 obesity with body mass index (BMI) of 30.0 to 30.9 in adult, unspecified obesity type, unspecified whether serious comorbidity present Well adult exam Expected: 10/31/2023, Expires: 01/30/2024 [facility] Comment on above: Expected: 10/31/2023, Expires: Start: 10-31-2023 End: 10-31-2023 Patient encounter procedure 10/31/2023 10:40 AM EDT Office Visit Family [facility] [address] [place] [address] Roque Pope MD [address] [place] [address] Dee + discuss restarting medication [facility] Comment on above: Dee + discuss restarting medication Start: 10-29-2023 Influenza vaccination Influenza Vaccine (#1) [facility] Start: 10-24-2023 End: 10-24-2023 Specialty Pharmacy 10/24/2023 9:00 AM EDT Specialty Pharmacy [facility] [address] [place] [address] Pharmacist, [facility] [address] [place] [address] [place] [address] Refill- Skyrizi OBI- NCA 08/2023- PAx- 6/ - ND 9/3-l/m 10/18 [facility] Comment on above: Refill- Skyrizi OBI- NCA 08/2023- PAx- 6/ - ND 9/3-l/m 10/18 Start: 10-19-2023 End: 10-19-2023 Specialty Pharmacy 10/19/2023 9:00 AM EDT Specialty Pharmacy [facility] [address] [place] [phone] Pharmacist, [facility] [address] [place] [address] [place] [address] Refill- Skyrizi OBI- NCA 08/2023- PAx- 6/ - ND 10/30 [facility] Comment on above: Refill- Skyrizi OBI- NCA 08/2023- PAx- 6/ 25/25 - ND 10/30 Start: 10-17-2023 End: 10-17-2023 Nursing evaluation of patient and report 10/17/2023 4:00 PM EDT Nurse Visit OB/Gynecology [address] [place] [address] Wstr, Nurse Efficiency Expert [facility] [address] [place] [address] [facility] Comment on above: Depo Start: 09-20-2023 End: 09-20-2023 Specialty Pharmacy 09/20/2023 9:00 AM EDT Specialty Pharmacy [facility] [address] [place] [phone] Pharmacist, [facility] [address] [place] [address] [place] [address] Refill- Skyrizi OBI- NCA 08/2023- PAx- 3/- 09/04 - PA RENEWAL sub 08/22 [facility] Comment on above: Refill- Skyrizi OBI- NCA 08/2023- PAx- 3/ - 09/04 - PA RENEWAL sub 08/22 Start: 08-29-2023 PAP TESTING PAP TESTING [facility] Start: 08-23-2023 End: 08-23-2023 Specialty Pharmacy 08/23/2023 9:00 AM EDT Specialty Pharmacy [facility] [address] [place] [phone] Pharmacist, [facility] [address] [place] [address] [place] [address] Refill- Skyrizi OBI- NCA 08/2023- PAx- 3/- 09/04 - PA RENEWAL NEEDED [facility] Comment on above: Refill- Skyrizi OBI- NCA 08/2023- PAx- 3/ - 09/04 - PA RENEWAL NEEDED Start: 07-25-2023 End: 07-25-2023 Nursing evaluation of patient and report 07/25/2023 9:00 AM EDT Nurse Visit OB/Gynecology [address] [place] [address] Wstr, Nurse Efficiency Expert [facility] [address] [place], [place] [id number] [facility] Comment on above: Depo Start: 07-19-2023 End: 07-19-2023 Nursing evaluation of patient and report 07/19/2023 9:00 AM EDT Nurse Visit OB/Gynecology [address] [place] [address] Wstr, Nurse Efficiency Expert [facility] [address] [place] [address] [facility] Comment on above: Depo Start: 07-05-2023 End: 07-05-2023 Specialty Pharmacy 07/05/2023 9:00 AM EDT Specialty Pharmacy [facility] [address] [place] [address] Pharmacist, [facility] [address] [place] [address] [place] [address] Refill- Skyrizi OBI- NCA 08/2023- PAx- 3/- ND 07/10-l/m 06/29 [facility] Comment on above: Refill- Skyrizi OBI- NCA 08/2023- PAx- 3/ /24- ND 07/10-l/m 06/29 Start: 06-30-2023 End: 06-30-2023 Specialty Pharmacy 06/30/2023 9:00 AM EDT Specialty Pharmacy [facility] [address] [place] [address] Pharmacist, [facility] [address] [place] [address] [place] [address] Refill- Skyrizi OBI- NCA 08/2023- PAx- 3//24- ND 07/10 [facility] Comment on above: Refill- Skyrizi OBI- NCA 08/2023- PAx- 3/ 25/24- ND 07/10 Start: 05-12-2023 HPV TESTING HPV TESTING [facility] Start: 02-27-2023 Behavioral Health Screening Behavioral Health Screening [facility] Start: 02-27-2023 Depression Assessment Depression Assessment [facility] Start: 12-15-2022 End: 03-16-2023 Hemoglobin A1c in Blood [facility] Work Phone: Comment on above: Expected: 12/15/2022, Expires: 4 Start: 11-29-2022 Hepb vaccine adult 3 dose schedule for im use HEP B VACCINE, 3-DOSE, AGE 20+ YR (ENGERIX-B, RECOMBIVAX HB) Immunization/Injection Routine Need for vaccination Expected: 11/29/2022 (Approximate) [facility] Work Phone: Comment on above: Expected: 11/29/2022 (Approximate) Start: 11-22-2022 COVID-19 VACCINE (3 - Pfizer risk series) COVID-19 VACCINE (3 - Pfizer risk series) [facility] Comment on above: Postponed from 12/14/2020 (Declined at t his time) Start: 11-22-2022 COVID-19 VACCINE (3 - Pfizer series) COVID-19 VACCINE (3 - Pfizer series) [facility] Comment on above: Postponed from 01/11/2021 (Declined at t his time) Start: 11-22-2022 PNEUMOCOCCAL (1 - PCV) PNEUMOCOCCAL (1 - PCV) [facility] Comment on above: Postponed from 08/02/1997 (Declined at t his time) Start: 11-22-2022 SHINGRIX VACCINE (1 of 2) SHINGRIX VACCINE (1 of 2) [facility] Comment on above: Postponed from 08/02/2010 (Declined at t his time) Start: 10-28-2022 Covid-19 Vaccine ( season) Covid-19 Vaccine ( season) [facility] Start: 10-28-2022 Influenza vaccination [facility] Start: 10-19-2022 End: 12-19-2022 CBC W Auto Differential panel - Blood CBC + DIFF Lab Routine Crohn's disease of small and large intestines with complication (HCC) Elevated LFTs Expected: 10/19/2022, Expires: 12/19/2022 [facility] Work Phone: Comment on above: Expected: 10/19/2022, Expires: 3 Start: 10-19-2022 End: 12-19-2022 Comprehensive metabolic 2000 panel - Serum or Plasma COMP METABOLIC PANEL Lab Routine Crohn's disease of small and large intestines with complication (HCC) Elevated LFTs Expected: 10/19/2022, Expires: 12/19/2022 [facility] Work Phone: Comment on above: Expected: 10/19/2022, Expires: 3 Start: 09-07-2022 End: 11-07-2022 CBC panel - Blood by Automated count CBC Lab Routine Crohn's disease of both small and large intestine with complication (HCC) Expected: 09/07/2022 (Approximate), Expires: 11/07/2022 [facility] Work Phone: Comment on above: Expected: 09/07/2022 (Approximate), Expi res: 11/07/2022 Start: 09-07-2022 End: 11-07-2022 CONFIRM BLOOD TYPE CONFIRM BLOOD TYPE Blood Bank Routine Crohn's disease of both small and large intestine with complication (HCC) Expected: 09/07/2022, Expires: 11/07/2022 [facility] Work Phone: Comment on above: Expected: 09/07/2022, Expires: 3 Start: 09-07-2022 End: 11-07-2022 TYPE AND SCREEN,30 DAY TYPE AND SCREEN,30 DAY Blood Bank Routine Crohn's disease of both small and large intestine with complication (HCC) Expected: 09/07/2022, Expires: 11/07/2022 [facility] Work Phone: Comment on above: Expected: 09/07/2022, Expires: 3 Start: 08-17-2022 End: 10-17-2022 25-hydroxyvitamin D3 [Mass/volume] in Serum or Plasma VITAMIN D 25 HYDROXY Lab Routine Crohn's disease of small and large intestines with complication (HCC) Expected: 08/17/2022, Expires: 10/17/2022 [facility] Work Phone: Comment on above: Expected: 08/17/2022, Expires: 3 Start: 08-17-2022 End: 10-17-2022 ADALIMUMAB ACTIVITY AND NEUTRALIZING ANTIBODY ADALIMUMAB ACTIVITY AND NEUTRALIZING ANTIBODY Lab Routine Crohn's disease of small and large intestines with complication (HCC) Expected: 08/17/2022, Expires: 10/17/2022 [facility] Work Phone: Comment on above: Expected: 08/17/2022, Expires: 3 Start: 08-17-2022 End: 10-17-2022 BLOOD TB SCREEN BLOOD TB SCREEN Lab Routine Crohn's disease of small and large intestines with complication (HCC) Expected: 08/17/2022, Expires: 10/17/2022 [facility] Work Phone: Comment on above: Expected: 08/17/2022, Expires: 3 Start: 08-17-2022 End: 10-17-2022 C reactive protein [Mass/volume] in Serum or Plasma C-REACTIVE PROTEIN (CRP) Lab Routine Crohn's disease of small and large intestines with complication (HCC) Expected: 08/17/2022, Expires: 10/17/2022 [facility] Work Phone: Comment on above: Expected: 08/17/2022, Expires: 3 Start: 08-17-2022 End: 10-17-2022 CBC W Auto Differential panel - Blood CBC + DIFF Lab Routine Crohn's disease of small and large intestines with complication (HCC) Expected: 08/17/2022, Expires: 10/17/2022 [facility] Work Phone: Comment on above: Expected: 08/17/2022, Expires: 3 Start: 08-17-2022 End: 10-17-2022 Cobalamin (Vitamin B12) [Mass/volume] in Serum or Plasma VITAMIN B12 BLOOD Lab Routine Crohn's disease of small and large intestines with complication (HCC) Expected: 08/17/2022, Expires: 10/17/2022 [facility] Work Phone: Comment on above: Expected: 08/17/2022, Expires: 3 Start: 08-17-2022 End: 10-17-2022 Comprehensive metabolic 2000 panel - Serum or Plasma COMP METABOLIC PANEL Lab Routine Crohn's disease of small and large intestines with complication (HCC) Expected: 08/17/2022, Expires: 10/17/2022 [facility] Work Phone: Comment on above: Expected: 08/17/2022, Expires: 3 Start: 08-17-2022 End: 10-17-2022 TPMT PHENOTYPE/ENZYME ACTIVITY TPMT PHENOTYPE/ENZYME ACTIVITY Lab Routine Crohn's disease of small and large intestines with complication (HCC) Expected: 08/17/2022, Expires: 10/17/2022 [facility] Work Phone: Comment on above: Expected: 08/17/2022, Expires: 3 Start: 05-30-2022 End: 07-30-2022 Lipid 1996 panel - Serum or Plasma LIPID PANEL BASIC Lab Routine Screening for lipid disorders Expected: 05/30/2022, Expires: 07/30/2022 [facility] Work Phone: Comment on above: Expected: 05/30/2022, Expires: 3 Start: 05-30-2022 End: 07-30-2022 Thyrotropin [Units/volume] in Serum or Plasma TSH BLD Lab Routine Adjustment disorder with anxiety Thyromegaly Expected: 05/30/2022, Expires: 07/30/2022 [facility] Work Phone: Comment on above: Expected: 05/30/2022, Expires: 3 Start: 05-30-2022 End: 07-30-2022 Thyroxine (T4) free [Mass/volume] in Serum or Plasma T4 FREE/FREE THYROX Lab Routine Thyromegaly Expected: 05/30/2022, Expires: 07/30/2022 [facility] Work Phone: Comment on above: Expected: 05/30/2022, Expires: 3 Start: 02-27-2022 DEPRESSION ASSESSMENT DEPRESSION ASSESSMENT [facility] Start: 10-28-2021 Influenza vaccination [facility] Start: 02-27-2021 DEPRESSION ASSESSMENT DEPRESSION ASSESSMENT [facility] Start: 01-11-2021 Covid-19 Vaccine (3 - Pfizer series) Covid-19 Vaccine (3 - Pfizer series) [facility] Start: 12-14-2020 COVID-19 VACCINE (3 - Pfizer risk series) COVID-19 VACCINE (3 - Pfizer risk series) [facility] Start: 08-02-2010 HEPATITIS A (1 of 2 - Risk 2-dose series) HEPATITIS A (1 of 2 - Risk 2-dose series) [facility] Start: 08-02-2010 Hepatitis A Vaccine (1 of 2 - Risk 2-dose series) Hepatitis A Vaccine (1 of 2 - Risk 2-dose series) [facility] Start: 08-02-2010 SHINGRIX VACCINE (1 of 2) SHINGRIX VACCINE (1 of 2) [facility] Start: 08-02-2009 Depression Screening Depression Screening [facility] Start: 08-02-2009 HIV SCREENING HIV SCREENING [facility] Start: 08-02-2009 HIV screening HIV Screening [facility] Start: 08-02-2009 MMR (1 of 2 - Risk 2-dose series) MMR (1 of 2 - Risk 2-dose series) [facility] Start: 2003 Adult depression screening assessment DEPRESSION SCREENING [facility] Start: 08-02-2001 Meningococcal B Vaccine: Consider Based On Risk (1 of 4 - Increased Risk) Meningococcal B Vaccine: Consider Based On Risk (1 of 4 - Increased Risk) [facility] Start: 08-02-2001 MENINGOCOCCAL B: Consider based on risk (1 of 4 - Increased Risk Bexsero 2-dose series) MENINGOCOCCAL B: Consider based on risk (1 of 4 - Increased Risk Bexsero 2-dose series) [facility] Start: 08-02-2001 MENINGOCOCCAL B: Consider based on risk (1 of 4 - Increased Risk) MENINGOCOCCAL B: Consider based on risk (1 of 4 - Increased Risk) [facility] Start: 08-02-1997 PNEUMOCOCCAL (1 - PCV) PNEUMOCOCCAL (1 - PCV) [facility] Start: 08-02-1997 Pneumococcal vaccination Pneumococcal Vaccine (1 of 2 - PCV) [facility] Start: 08-02-1992 HEPATITIS A (1 of 2 - Risk 2-dose series) HEPATITIS A (1 of 2 - Risk 2-dose series) [facility] Calprotectin [Mass/mass] in Stool CALPROTECTIN,FECAL Lab Routine Crohn's disease of small and large intestines with complication (HCC) Ordered: 10/17/2022 [facility] Work Phone: Comment on above: Ordered: 10/17/2022 Calprotectin [Mass/mass] in Stool CALPROTECTIN,FECAL Lab Routine Crohn's disease of both small and large intestine with complication (HCC) Ordered: 04/18/2024 [facility] Comment on above: Ordered: 04/18/2024 End: 09-16-2023 Ct abdomen & pelvis w/contrast material CT ENTEROGRAPHY W IVCON Radiology Routine Crohn's disease of small and large intestines with complication (HCC) 1 Occurrences starting 08/17/2022 until 09/16/2023 [facility] Work Phone: Comment on above: 1 Occurrences starting 08/17/2022 until 09/16/2023 End: 08-26-2023 ECG COMPLETE ECG COMPLETE ECG Routine Crohn's disease of both small and large intestine with complication (HCC) 1 Occurrences starting 08/25/2022 until 08/26/2023 [facility] Work Phone: Comment on above: 1 Occurrences starting 08/25/2022 until 08/26/2023 End: 04-18-2025 Flexible sigmoidoscopy study COLONOSCOPY DIAGNOSTIC Endoscopy Routine Crohn's disease of both small and large intestine with complication (HCC) 1 Occurrences starting 04/18/2024 until 04/18/2025 [facility] Comment on above: 1 Occurrences starting 04/18/2024 until 04/18/2025 H&P for surgery H&P FOR SURGERY Procedures Routine Crohn's disease of both small and large intestine with complication (HCC) Ordered: 08/25/2022 [facility] Work Phone: Comment on above: Ordered: 08/25/2022 Hepb vaccine adult 3 dose schedule for im use HEP B VACCINE, 3-DOSE, AGE 20+ YR (ENGERIX-B, RECOMBIVAX HB) Immunization/Injection Routine Need for vaccination Ordered: 06/13/2022 [facility] Work Phone: Comment on above: Ordered: 06/13/2022 HIGH RISK HUMAN PAPILLOMA VIRUS (HPV), PCR FOR DETECTION AND GENOTYPING HIGH RISK HUMAN PAPILLOMA VIRUS (HPV), PCR FOR DETECTION AND GENOTYPING Lab Routine Encounter for Papanicolaou smear for cervical cancer screening Special screening examination for human papillomavirus (HPV) Long-term use of immunosuppressant medication 06/18/2024 3:58 PM EDT [facility] PAP TEST PAP TEST Lab Rou randy Encounter for Papanicolaou smear for cervical cancer screening Special screening examination for human papillomavirus (HPV) Long-term use of immunosuppressant medication 06/18/2024 3:58 PM EDT [facility] Work Phone: PPD (TB INTRADERMAL [id number]) B/O PPD (TB INTRADERMAL [id number]) B/O Procedures Routine Screening-pulmonary TB Ordered: 06/03/2022 [facility] Work Phone: Comment on above: Ordered: 06/03/2022 REFER FOR ADMIT INTERVIEW REFER FOR ADMIT INTERVIEW Procedures Routine Crohn's disease of both small and large intestine with complication (HCC) Ordered: 08/25/2022 [facility] Work Phone: Comment on above: Ordered: 08/25/2022 End: 02-18-2023 Screening colonoscopy COLONOSCOPY SCREENING Endoscopy Routine Crohn's disease of both small and large intestine with intestinal obstruction (HCC) 1 Occurrences starting 02/18/2022 until 02/18/2023 [facility] Work Phone: Comment on above: 1 Occurrences starting 02/18/2022 until 02/18/2023 End: 06-29-2023 Us soft tissue head & neck real time imge docm US THYROID/PARATHYROID Radiology Routine Thyromegaly 1 Occurrences starting 05/30/2022 until 06/29/2023 [facility] Work Phone: Comment on above: 1 Occurrences starting 05/30/2022 until 06/29/2023 [facility] Immunizations Immunization Date Immunization Notes Care Provider Mariana matta 12-12-2022 hepatitis B vaccine, adult dosage Mn Nurse Work Phone: [facility] Work Phone: 11-14-2022 influenza, injectabl e, quadrivalent, preservative free Roque Pope MD Work Phone: [facility] 11-14-2022 influenza virus vacc ine, unspecified formulation Karla Noriega PA-C Work Phone: [facility] 06-29-2022 hepatitis B vaccine, adult dosage Mn Nurse Work Phone: [facility] Work Phone: 06-08-2022 tuberculin skin test ; purified protein derivative solution, intradermal Nurse Wstr Work Phone: [facility] 05-30-2022 hepatitis B vaccine, adult dosage SRINIVAS Parkinson PA-C Work Phone: [facility] 05-30-2022 tuberculin skin test ; purified protein derivative solution, intradermal Nurse Wstr Work Phone: [facility] 11-22-2021 influenza, injectabl e, quadrivalent, contains preservative Randy Bojorquez APRN.CNP Work Phone: [facility] 11-22-2021 influenza virus vacc ine, unspecified formulation Winnie Richards PA-C Work Phone: [facility] 12-12-2019 influenza, injectabl e, quadrivalent, contains preservative Tad Morton MD Work Phone: [facility] 01-27-2018 tetanus toxoid, redu marley diphtheria toxoid, and acellular pertussis vaccine, adsorbed Tad Morton MD Work Phone: [facility] Work Phone: 12-06-2017 influenza, seasonal, injectable, preservative free Tad Morton MD Work Phone: [facility] 10-28-2016 influenza, seasonal, injectable, preservative free Tad Morton MD Work Phone: [facility] 03-15-2016 influenza, injectabl e, quadrivalent, preservative free Tad Morton MD Work Phone: [facility] 09-17-2008 varicella virus vaccine Mi N brodye Work Phone: [facility] 01-03-2008 influenza virus vacc ine, whole virus Mi Nurse Work Phone: [facility] 05-15-2007 human papilloma viru s vaccine, quadrivalent Mi Nurse Work Phone: [facility] 01-12-2007 influenza virus vacc ine, whole virus Mi Nurse Work Phone: [facility] 01-10-2007 human papilloma viru s vaccine, quadrivalent Mi Nurse Work Phone: [facility] 11-09-2006 human papilloma viru s vaccine, quadrivalent Mi Nurse Work Phone: [facility] 11-09-2006 meningococcal polysaccharide (groups A, C, Y and W-135) diphtheria toxoid conjugate vaccine (MCV4P) Mi Nurse Work Phone: [facility] 02-24-2004 hepatitis B vaccine, pediatric or pediatric/adolescent dosage Mi Nurse Work Phone: [facility] 02-24-2004 measles, mumps and rubella virus vaccine Mi Nurse Work Phone: [facility] 12-27-2003 influenza virus vacc ine, whole virus Mi Nurse Work Phone: [facility] 08-05-2003 measles, mumps and rubella virus vaccine Mi Nurse Work Phone: [facility] 08-05-2003 varicella virus vaccine Mi N brodye Work Phone: [facility] 06-04-2003 hepatitis B vaccine, pediatric or pediatric/adolescent dosage Mi Nurse Work Phone: [facility] 06-18-2002 diphtheria, tetanus toxoids and acellular pertussis vaccine, unspecified formulation Mi Nurse Work Phone: [facility] 08-04-1997 diphtheria, tetanus toxoids and acellular pertussis vaccine, unspecified formulation Mi Nurse Work Phone: [facility] 07-05-1996 diphtheria, tetanus toxoids and acellular pertussis vaccine, unspecified formulation Mi Nurse Work Phone: [facility] 07-05-1996 poliovirus vaccine, unspecified formulation Mi Nurse Work Phone: [facility] 03-14-1995 diphtheria, tetanus toxoids and acellular pertussis vaccine, unspecified formulation Mi Nurse Work Phone: [facility] 03-14-1995 poliovirus vaccine, unspecified formulation Mi Nurse Work Phone: [facility] 01-09-1995 diphtheria, tetanus toxoids and acellular pertussis vaccine, unspecified formulation Mi Nurse Work Phone: [facility] 01-09-1995 poliovirus vaccine, unspecified formulation Mi Nurse Work Phone: [facility] 11-03-1994 diphtheria, tetanus toxoids and acellular pertussis vaccine, unspecified formulation Mi Nurse Work Phone: [facility] 11-03-1994 haemophilus influenz ae type b vaccine, conjugate unspecified formulation Mi Nurse Work Phone: [facility] 11-03-1994 poliovirus vaccine, unspecified formulation Mi Nurse Work Phone: [facility] Payers Date Payer Category Payer Private Health Insurance MMO SUP ERMED PPO [id number] 2023 Unknown [id number] 2023 Unknown [id number] 2022 Medicaid [id number] 2018 Medicaid [facility] [id number] 2018-Present [phone] [address] [place] [address] Medicaid [id number] 2018 Medicaid [id number] 2017 Unknown 1991 Unknown [id number] [id number]. 356 1991 Unknown [id number] 2.840.1.305460.3.579.2. 356 1991 Unknown [id number] 2.16840.1.868521.3.579.2. 356 1991 Unknown [id number] 2.16840.1.053910.3.579.2. 356 1991 Unknown [id number] 2.16840.1.588488.3.579.2. 356 1991 Unknown [id number] 2.16840.1.939560.3.579.2. 356 1991 Unknown [id number] 2.16840.1.651531.3.579.2. 356 1991 Unknown [id number] 2.16840.1.505442.3.579.2. 717 1991 Unknown [id number] 2.16840.1.425230.3.579.2. 1991 Unknown [id number] 2.16.840.1.097926.3.579.2. 1991 Unknown [id number] 2.16.840.1.513854.3.579.2. 1991 Unknown [id number] 2.16.840.1.695881.3.579.2. 1991 Unknown [id number] 2.16.840.1.325237.3.579.2. 1991 Unknown [id number] 2.16.840.1.401135.3.579.2. 1991 Unknown [id number] 2.16.840.1.221207.3.579.2. 1991 Unknown [id number] 2.16.840.1.808675.3.579.2. 1991 Unknown [id number] 2.16.840.1.960917.3.579.2. 1991 Unknown [id number] 2.16.840.1.075946.3.579.2. 1991 Unknown [id number] 2.16.840.1.664025.3.579.2. 1991 Unknown [id number] 2.16.840.1.400699.3.579.2. 1991 Unknown [id number] 2.16.840.1.394409.3.579.2. 1959 Medicaid [id number] Social History Date Type Detail Facility Start: 11-20-2020 End: 10-25-2021 Tobacco smoking status NHIS Occasional tobacco smoker [facility] Start: 11-20-2020 End: 10-17-2023 Tobacco use and exposure Smokeless tobacco non-user [facility] Start: 12-12-2019 End: 04-15-2021 Alcohol intake Ex-drinker (finding) [facility] Start: 07-19-2018 End: 10-25-2021 Tobacco Comment using e cigarrette. [facility] Start: 1990 Sex Assigned At Not on file [facility] Start: 11-12-2019 End: 01-03-2022 Exposure to SARS-CoV-2 (event) Not sure [facility] Work Phone: Start: 12-15-2021 End: 10-17-2023 Tobacco smoking status NHIS Ex-smoker [facility] End: 02-27-2018 History of tobacco use Current smoker [facility] End: 02-27-2018 History of tobacco use Cigarette Smoker [facility] Start: 06-29-2022 End: 08-11-2022 History of Social function [facility] Work Phone: Start: 06-29-2022 End: 08-11-2022 Tobacco use panel [facility] Work Phone: Adult Depression Screening Assessment 0 [facility] Work Phone: Start: 12-15-2022 End: 06-18-2024 Alcohol intake Current drinker of alcohol (finding) [facility] Start: 12-15-2022 Alcohol Comment occasional [facility] Functional Status Date Assessment Result Facility 09-18-2022 Are you deaf, or do you have serious difficulty hearing No 09/18/2022 2:41 PM Joselyn Wu, BYRON.[employer]INTER [employer] No [facility] Work Phone: 09-18-2022 Are you blind, or do you have serious difficulty seeing, even when wearing glasses No 09/18/2022 2:41 PM Joselyn Wu, BYRON.[employer] No [facility] 09-18-2022 Do you have serious difficulty walking or climbing stairs No 09/18/2022 2:41 PM Joselyn Wu, [employer] No [facility] 09-18-2022 Do you have difficul ty dressing or bathing No 09/18/2022 2:41 PM Joselyn Wu, BYRON.[employer] No [facility] 09-18-2022 Because of a physica l, mental, or emotional condition, do you have difficulty doing errands alone such as visiting a physician's office or shopping No 09/18/2022 2:41 PM Joselyn Wu, BYRON.[employer] No [facility] Mental Status Date Assessment Result Facility 09-18-2022 Because of a physica l, mental, or emotional condition, do you have serious difficulty concentrating, remembering, or making decisions No 09/18/2022 2:41 PM EDT Joselyn Puckett APRN.AR No [facility] Clinical Notes 12-12-2019 to 06-25-2024 Telephone Encounter - Kamila Vila MA - 06/25/2024 4:47 PM EDTTelephone Encounter - Kamila Vila MA - 06/25/2024 4:47 PM EDTTelephone Encounter - Estephanie Martinez MA - 06/18/2024 3:55 PM EDT Note Date & Type Note Facility 06-25-2024 Telephone encounter Note Patient informed ready for pickup. Taken to medical records. Kamila Vila MA [facility] 06-25-2024 Miscellaneous Notes Patient informed ready for pickup. Taken to medical records. Kamila Vila MA Type of form: School Application: [facility] Form received via fax When form is completed, call patient Form has been forwarded to Physician Desk: Dr. Niko Martinez MA documented in this encounter [facility] 06-18-2024 Telephone encounter Note Type of form: School Application: [facility] Form received via fax When form is completed, call patient Form has been forwarded to Physician Desk: Dr. Niko Martinez MA [facility] 06-18-2024 Rakel Webb APRN.AR - 06/18/2024 3:37 PM EDT Calcium and Vitamin D Supplementation (from the National Institutes of Health Office of Dietary Supplements 2011) Calcium 1200 mg daily - 600 mg twice a day if taking supplement and Vit D 800-1000 IU daily Calcium is required by the body for blood vessel, muscle, hormone and nerve functioning. Most of the body's calcium is stored in the bones and teeth where it supports structure and function. Bone is continuously broken down and reformed. When bone breakdown exceeds formation, especially in postmenopausal women, bone loss can increase the risk of osteoporosis and fractures. In addition to low calcium intake, women who smoke, have a family history of osteoporosis, are thin, or , or who take certain medications such as cancer chemotherapy, seizure mediations and steroids are at increased risk of osteoporosis. The calcium requirements in women change with age. The National Institutes of Health (NIH) recommends: 1000mg elemental calcium for premenopausal women age 19-50 1200mg elemental calcium for postmenopausal women and all women over 50 Milk, yogurt, and cheese are rich natural sources of calcium and are the major food contributors in the [place]. For example, 8oz of milk (whole, lowfat or skim) contains about 300mg calcium, 8oz of yogurt contains 415mg. Nondairy sources include salmon and sardines and vegetables, such as Arabic cabbage, kale, and broccoli. Foods fortified with calcium include many fruit juices, tofu and cereals. For more food calcium content information, visit http://ods.od.nih.gov/factsheets/ calcium. Calcium supplements come in several different forms. Remember that the recommendations are for millgrams (mg) of elemental calcium which may be less than the total weight of the supplement. The amount of elemental calcium is required to be printed on the label. Calcium carbonate is the least expensive form. It must be taken on a full stomach to be properly absorbed. Some patients may experience gas or constipation. Calcium phosphate and calcium citrate may be taken either with or without food and tend to have less side effects but are generally more expensive. Because of its ability to neutralize stomach acid, calcium carbonate is found in some eano-kvm-lbhrrsp antacid products, such as Tums and Rolaids . Depending on its strength, each chewable pill or softchew provides 200 to 400 mg of elemental calcium. The percentage of calcium absorbed depends on the total amount of elemental calcium consumed at one time. Absorption is highest in doses <500mg. So a woman who takes 1,000mg/day of calcium from supplements should split the dose and take 500mg at two separate times during the day. Too much calcium can cause kidney stones, constipation, difficulty absorbing other nutrients and calcium buildup in blood vessels. Women under 50 should not exceed 2500mg/day (2000mg/day for women over 50) of calcium from food and supplements. Excessive alcohol and caffeine intake can inhibit absorption of calcium. Calcium can reduce the absorption of some medications if taken at the same time of day (bisphosphonates, thyroid medication, Phenytoin and other seizure medications, some antibiotics and iron supplements). Vitamin D promotes calcium absorption in the gut and maintains adequate blood levels of calcium and phosphate for normal bone growth and bone remodeling. Vitamin D also helps regulate cell growth as well as nerve, muscle and immune system function. Vitamin D is produced in the skin as a result of ultraviolet sunlight rays and must be altered in the liver and kidney to become its active form. Recommended intake according to the National Institutes of Health is 600 International Units (IU) for girls and women ages 1-70 and 800 IU for women over 70. Very few foods in nature contain vitamin D. The flesh of fatty fish (such as salmon, tuna, and mackerel) and fish liver oils are among the best sources. Small amounts of vitamin D are found in beef liver, cheese, mushrooms and egg yolks. Most people meet at least some of their vitamin D needs through exposure to sunlight. Season, time of day, length of day, cloud cover, smog, skin melanin content, and sunscreen are among the factors that affect UV radiation exposure and vitamin D synthesis. Despite the importance of the sun for vitamin D synthesis, it is prudent to limit exposure of skin to sunlight and avoid tanning beds. UV radiation is a carcinogen responsible for most of the estimated 1.5 million skin cancers that occur annually in the [place]. Lifetime cumulative UV damage to skin is also responsible for some age-associated dryness and other cosmetic changes. In supplements and fortified foods, vitamin D is available in two forms, D2 (ergocalciferol) and D3 (cholecalciferol). The two are equivalent at normal supplement doses. For women who require high supplement doses because of vitamin D deficiency, D3 may work better to raise blood levels. Some medications can prevent proper absorption of Vitamin D. These include laxatives, corticosteroids like prednisone, the seizure drugs phenobarbital and phenytoin, the weight-loss drug orlistat ( Xenical and AlliTM) and the cholesterol-lowering drug cholestyramine (Questran , LoCholest , and Prevalite ). Talk to your doctor about adjusting your recommended daily vitamin D dosage if you take these medications. You should not exceed 4000 mg of vitamin D supplementation daily unless specifically prescribed by your doctor. documented in this encounter [facility] 06-18-2024 Note HNO ID: [id number] Author: RAKEL LOVE APRN.CNP Service: ? Author Type: Nurse Practitioner Type: Progress Notes Filed: 06/18/2024 15:48 Note Text: Aly is a 33 year old who presents for an annual gynecologic exam without complaints. Menses: None with Depo Contraception:Depo Provera HPV vaccine: Yes Last Pap: normal HPV: 12/15/2021 neg History of abnormal pap: Yes 2019 Colposcopy benign - Pap ASCUS HPV positive Last mammogram: never Sexually active: Yes History of STDS: HPV Patient concerns for STD exposure: No. Documentation from previous visit of 12/15/2022 was copied and pasted, documentation has been reviewed and edited as necessary for today's visit OB History Gravida2 Para1 Term1 Preterm0 AB0 Living2 SAB0 IAB0 Ectopic0 Multiple0 Live Births2 Comment: Gave first baby up for adoption FAMILY HISTORY Adopted: Yes Problem Relation Age of Onset Cancer Father Lung SOCIAL HISTORY Social History Tobacco Use Smoking status: Former Current packs/day: 0.00 Types: Cigarettes Quit date: 2019 Years since quittin.3 Smokeless tobacco: Never Vaping Use Vaping status: current everyday user Substances: Nicotine Devices: Refillable tank Substance Use Topics Alcohol use: Yes Comment: occasional Drug use: Never REVIEW OF SYSTEMS Abdomen: No abdominal pain, nausea, vomiting, diarrhea, or constipation. No bloating, early satiety, indigestion, or increased flatulence. Bladder: No dysuria, gross hematuria, urinary frequency, urinary urgency, or incontinence. Breast: No breast lumps, nipple d/c, overlying skin changes, redness or skin retraction. Allergies and current medication updated:Yes SENSITIVE EXAM: The sensitive examination was discussed with the Patient or Patient's Authorized Beet Flumer. As applicable, any other physician, advance practice provider, medical student, or other health professional student that will be observing or involved in the sensitive examination for educational or training purposes was discussed with the Patient or Authorized Beet Flumer. The Patient or Authorized Beet Flumer has agreed to proceed with the sensitive examination. (Sensitive examination includes inspection and/or palpation of the breasts, pelvis, prostate and anorectal regions). EXAM: BP 112/71 Ht 4' 11.25 (1.51m) Wt 151 lb (68.5kg) LMP 04/04/2023 BMI 30.24 kg/(m2). GENERAL: pleasant, female in no apparent distress HEENT: Normocephalic, atraumatic, mucus membranes moist, and no lesions NECK: Supple, full range of motion, no adenopathy, and thyroid normal DERMATOLOGY: Normal, without lesions, non-icteric, and non-hirsute BREAST: soft, non-tender, symmetric, no dominant mass, normal nipple-areolar complex, no lymphadenopathy, and no nipple discharge CHEST: Normal inspiratory effort ABDOMEN: soft, non-tender, and no masses PELVIC: external genitalia normal, normal Bartholin's glands, urethra, Loomis's glands, no vulvar lesions, no cervical lesions, physiologic discharge present, normal appearing perineal body and perianal region BIMANUAL: uterus normal size, shape and consistency, no adnexal masses, and non-tender RECTOVAGINAL: deferred. NEURO: alert and oriented x3,exam grossly non-focal EXTREMITIES: normal ASSESSMENT/PLAN: 1) Health maintenance: Pap done with HPV. Due every 3 years due to immunosuppressant medication. Nutrition, exercise and routine health maintenance exams reviewed. Calcium/Vitamin D supplementation information provided. Smoking cessation: Benefits of smoking cessation reviewed. Patient encouraged to avoid smoking. HPV vaccine: completed series 2) Contraception: Depo Provera. Contraceptive options reviewed and information provided. Encouraged calcium/vitamin D/weightbearing exercise/smoking cessation. 3) STD screening: Accepted STD check for Gonorrhea and Chlamydia. 4) Follow up one year or sooner as needed Rakel Love APRN.[facility] 06-18-2024 History of Present illness Narrative Aly is a 33 year old who presents for an annual gynecologic exam without complaints. Menses: None with Depo Contraception:Depo Provera HPV vaccine: Yes Last Pap: normal HPV: 12/15/2021 neg History of abnormal pap: Yes 2019 Colposcopy benign - Pap ASCUS HPV positive Last mammogram: never Sexually active: Yes History of STDS: HPV Patient concerns for STD exposure: No. Documentation from previous visit of 12/15/2022 was copied and pasted, documentation has been reviewed and edited as necessary for today's visit OB History Gravida2 Para1 Term1 Preterm0 AB0 Living2 SAB0 IAB0 Ectopic0 Multiple0 Live Births2 Comment: Gave first baby up for adoption FAMILY HISTORY Adopted: Yes Problem Relation Age of Onset Cancer Father Lung SOCIAL HISTORY Social History Tobacco Use Smoking status: Former Current packs/day: 0.00 Types: Cigarettes Quit date: 2018 Years since quittin.3 Smokeless tobacco: Never Vaping Use Vaping status: current everyday user Substances: Nicotine Devices: LIN TV tank Substance Use Topics Alcohol use: Yes Comment: occasional Drug use: Never REVIEW OF SYSTEMS Abdomen: No abdominal pain, nausea, vomiting, diarrhea, or constipation. No bloating, early satiety, indigestion, or increased flatulence. Bladder: No dysuria, gross hematuria, urinary frequency, urinary urgency, or incontinence. Breast: No breast lumps, nipple d/c, overlying skin changes, redness or skin retraction. Allergies and current medication updated:Yes SENSITIVE EXAM: The sensitive examination was discussed with the Patient or Patient's Authorized Beet Flumer. As applicable, any other physician, advance practice provider, medical student, or other health professional student that will be observing or involved in the sensitive examination for educational or training purposes was discussed with the Patient or Authorized Beet Flumer. The Patient or Authorized Beet Flumer has agreed to proceed with the sensitive examination. (Sensitive examination includes inspection and/or palpation of the breasts, pelvis, prostate and anorectal regions). EXAM: BP 112/71 Ht 4' 11.25 (1.51m) Wt 151 lb (68.5kg) LMP 04/04/2023 BMI 30.24 kg/(m^2). GENERAL: pleasant, female in no apparent distress HEENT: Normocephalic, atraumatic, mucus membranes moist, and no lesions NECK: Supple, full range of motion, no adenopathy, and thyroid normal DERMATOLOGY: Normal, without lesions, non-icteric, and non-hirsute BREAST: soft, non-tender, symmetric, no dominant mass, normal nipple-areolar complex, no lymphadenopathy, and no nipple discharge CHEST: Normal inspiratory effort ABDOMEN: soft, non-tender, and no masses PELVIC: external genitalia normal, normal Bartholin's glands, urethra, Loomis's glands, no vulvar lesions, no cervical lesions, physiologic discharge present, normal appearing perineal body and perianal region BIMANUAL: uterus normal size, shape and consistency, no adnexal masses, and non-tender RECTOVAGINAL: deferred. NEURO: alert and oriented x3,exam grossly non-focal EXTREMITIES: normal ASSESSMENT/PLAN: 1) Health maintenance: Pap done with HPV. Due every 3 years due to immunosuppressant medication. Nutrition, exercise and routine health maintenance exams reviewed. Calcium/Vitamin D supplementation information provided. Smoking cessation: Benefits of smoking cessation reviewed. Patient encouraged to avoid smoking. HPV vaccine: completed series 2) Contraception: Depo Provera. Contraceptive options reviewed and information provided. Encouraged calcium/vitamin D/weightbearing exercise/smoking cessation. 3) STD screening: Accepted STD check for Gonorrhea and Chlamydia. 4) Follow up one year or sooner as needed Rakel Love APRN.[employer] documented in this encounter [facility] 05-23-2024 Note HNO ID: [id number] Author: FORD GUTIERREZ RN Service: ? Author Type: Registered Nurse Type: Progress Notes Filed: 05/23/2024 16:06 Note Text: Patient identified by name and date of . Aly Solorio is here for a Depo Provera injection. Patient brought medication. Date last injected: 02/27/2024 Depo-Provera, 150 mg, administered IM right upper quadrant gluteus, Lot # [id number], expiration date 07/27/2025. Depo-Provera was given without incident. Date of last menses: Patient's last menstrual period was 04/04/2023 (approximate). Irregular bleeding - No Menses ceased - Yes Patient instructed to return to clinic in 12 weeks. [email or web address] Provider NBA was present in office at time of injection. Ford Gutierrez RN [facility] 05-23-2024 History of Present illness Narrative Patient identified by name and date of . Aly Solorio is here for a Depo Provera injection. Patient brought medication. Date last injected: 02/27/2024 Depo-Provera, 150 mg, administered IM right upper quadrant gluteus, Lot # [id number], expiration date 07/27/2025. Depo-Provera was given without incident. Date of last menses: Patient's last menstrual period was 04/04/2023 (approximate). Irregular bleeding - No Menses ceased - Yes Patient instructed to return to clinic in 12 weeks. [email or web address] [email or web address] [email or web address] Provider NBA was present in office at time of injection. Ford Gutierrez RN documented in this encounter [facility] 05-20-2024 Note HNO ID: [id number] Author: ROQUE POPE MD Service: ? Author Type: Physician Type: Progress Notes Filed: 05/20/2024 17:51 Note Text: Patient presents with: 6 Month Exam HPI: Patient presents today for office visit for follow up. Now on effexor of 75 mg. Overall feels it is working well. Some fatigue. 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 Discussed changing to her am. Moods are good. Not depressed. No issues with appetite or upset stomach. No suicidal ideation. Following with gi. Doing well. Just got started on vit d. MEDICATIONS: Current Outpatient Medications Medication Sig medroxyPROGESTERone (DEPO-PROVERA) 150 mg/mL Inject 1 mL intramuscularly every 12 weeks. risankizumab-rzaa (SKYRIZI) 360 mg/2.4 mL (150 mg/mL) wearable injector Inject 360mg (1 device) subcutaneously every 8 weeks. ergocalciferol 50,000 unit capsule (VITAMIN D2, DRISDOL) Take 1 capsule by mouth one time a week. venlafaxine ER (EFFEXOR XR) 75 mg 24 hr capsule Take 1 capsule by mouth once daily. venlafaxine ER (EFFEXOR XR) 37.5 mg 24 hr capsule Take 2 capsules by mouth once daily. No current facility-administered medications for this visit. ALLERGIES: ALLERGIES No Known Allergies PAST MEDICAL HISTORY Diagnosis Date ASCUS with positive high risk HPV cervical 05/11/2018 Colopscopy benign Crohn disease (HCC) 2000 Small bowel obstruction (HCC) 02/06/2022 PAST SURGICAL HISTORY Procedure Laterality Date SECTION HX 03/29/2018 COLONOSCOPY STOMA W/ENDOSCOPIC MUCOSAL RESCJ 2005 small and large resection PAST SURGICAL HISTORY OF 09/16/2022 Laparoscopic redo ileocolic resection with Kono-S ileocolic anastomosis FAMILY HISTORY Adopted: Yes Problem Relation Age of Onset Cancer Father Lung Social History Tobacco Use Smoking status: Former Current packs/day: 0.00 Types: Cigarettes Quit date: 2019 Years since quittin.2 Smokeless tobacco: Never Vaping Use Vaping status: current everyday user Substances: Nicotine Devices: Kindling Substance Use Topics Alcohol use: Yes Comment: occasional Drug use: Never Reviewed current medications, allergies, past medical history, surgical history, family history and social history today. REVIEW OF SYSTEMS All other reviewed and negative other than HPI. HEALTH MAINTENANCE: Reviewed health maintenance issues today and recommended the following in detail. Depression Screening Never done VITALS: BP 110/70 Pulse 92 Temp 37.2 ?C (99 ?F) (Right Tympanic) Resp 16 Wt 69.9 kg (154 lb) LMP 04/04/2023 (Approximate) BMI 30.64 kg/m? Last 4 Encounter Wt Readings: Date: Wt: 02/27/2024 71.2 kg (157 lb) 11/22/2023 67.6 kg (149 lb 0.5 oz) 10/31/2023 69.9 kg (154 lb 3.2 oz) 10/17/2023 69.9 kg (154 lb) PHYSICAL EXAMINATION: General appearance: Well appearing, alert, in no acute distress, well-hydrated, well nourished. Skin: Skin color, texture, turgor normal, no suspicious rashes or lesions Head: Normocephalic, no masses, lesions, tenderness or abnormalities Lungs: Lungs clear to auscultation. No wheezing, rhonchi, rales Heart: RRR without murmur, gallop, or rubs. No ectopy Abdomen: Normal abdominal exam, Abdomen soft, non-tender. Bowel sounds normal. No masses, organomegaly Extremities: No deformities, edema, skin discoloration, clubbing or cyanosis. Good capillary refill. ASSESSMENT/PLAN: 1. Crohn's disease of both small and large intestine with complication (HCC) - ICD9: 555.2, ICD10: K50.819 (primary diagnosis) - per gi. 2. Anxiety - ICD9: 300.00, ICD10: F41.9 - Continue current medications. Notify us if any difficulties are noted. Stay on effexor. 3. Screening for depression - ICD9: V79.0, ICD10: Z13.31 - DEPRESSION SCREENING Roque Pope MD [facility] 05-20-2024 History of Present illness Narrative Patient presents with: 6 Month Exam HPI: Patient presents today for office visit for follow up. Now on effexor of 75 mg. Overall feels it is working well. Some fatigue. 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 Discussed changing to her am. Moods are good. Not depressed. No issues with appetite or upset stomach. No suicidal ideation. Following with gi. Doing well. Just got started on vit d. MEDICATIONS: Current Outpatient Medications Medication Sig medroxyPROGESTERone (DEPO-PROVERA) 150 mg/mL Inject 1 mL intramuscularly every 12 weeks. risankizumab-rzaa (SKYRIZI) 360 mg/2.4 mL (150 mg/mL) wearable injector Inject 360mg (1 device) subcutaneously every 8 weeks. ergocalciferol 50,000 unit capsule (VITAMIN D2, DRISDOL) Take 1 capsule by mouth one time a week. venlafaxine ER (EFFEXOR XR) 75 mg 24 hr capsule Take 1 capsule by mouth once daily. venlafaxine ER (EFFEXOR XR) 37.5 mg 24 hr capsule Take 2 capsules by mouth once daily. No current facility-administered medications for this visit. ALLERGIES: ALLERGIES No Known Allergies PAST MEDICAL HISTORY Diagnosis Date ASCUS with positive high risk HPV cervical 05/11/2018 Colopscopy benign Crohn disease (HCC) 2000 Small bowel obstruction (HCC) 02/06/2022 PAST SURGICAL HISTORY Procedure Laterality Date SECTION HX 03/29/2018 COLONOSCOPY STOMA W/ENDOSCOPIC MUCOSAL RESCJ 2005 small and large resection PAST SURGICAL HISTORY OF 09/16/2022 Laparoscopic redo ileocolic resection with Kono-S ileocolic anastomosis FAMILY HISTORY Adopted: Yes Problem Relation Age of Onset Cancer Father Lung Social History Tobacco Use Smoking status: Former Current packs/day: 0.00 Types: Cigarettes Quit date: 2018 Years since quittin.2 Smokeless tobacco: Never Vaping Use Vaping status: current everyday user Substances: Nicotine Devices: Kindling Substance Use Topics Alcohol use: Yes Comment: occasional Drug use: Never Reviewed current medications, allergies, past medical history, surgical history, family history and social history today. REVIEW OF SYSTEMS All other reviewed and negative other than HPI. HEALTH MAINTENANCE: Reviewed health maintenance issues today and recommended the following in detail. Depression Screening Never done VITALS: BP 110/70 Pulse 92 Temp 37.2 C (99 F) (Right Tympanic) Resp 16 Wt 69.9 kg (154 lb) LMP 04/04/2023 (Approximate) BMI 30.64 kg/m Last 4 Encounter Wt Readings: Date: Wt: 02/27/2024 71.2 kg (157 lb) 11/22/2023 67.6 kg (149 lb 0.5 oz) 10/31/2023 69.9 kg (154 lb 3.2 oz) 10/17/2023 69.9 kg (154 lb) PHYSICAL EXAMINATION: General appearance: Well appearing, alert, in no acute distress, well-hydrated, well nourished. Skin: Skin color, texture, turgor normal, no suspicious rashes or lesions Head: Normocephalic, no masses, lesions, tenderness or abnormalities Lungs: Lungs clear to auscultation. No wheezing, rhonchi, rales Heart: RRR without murmur, gallop, or rubs. No ectopy Abdomen: Normal abdominal exam, Abdomen soft, non-tender. Bowel sounds normal. No masses, organomegaly Extremities: No deformities, edema, skin discoloration, clubbing or cyanosis. Good capillary refill. ASSESSMENT/PLAN: 1. Crohn's disease of both small and large intestine with complication (HCC) - ICD9: 555.2, ICD10: K50.819 (primary diagnosis) - per gi. 2. Anxiety - ICD9: 300.00, ICD10: F41.9 - Continue current medications. Notify us if any difficulties are noted. Stay on effexor. 3. Screening for depression - ICD9: V79.0, ICD10: Z13.31 - DEPRESSION SCREENING Roque Pope MD documented in this encounter [facility] 05-20-2024 Telephone encounter Note Refill request received via [employer] for patients Depo Provera Rx. Patient was supposed to have injection today, but rescheduled for . Patient last seen for annual exam on 04/24/23. PSS: Please contact patient to schedule annual exam. Kamila Long RN [facility] 05-20-2024 Miscellaneous Notes Refill request received via [employer] for patients Depo Provera Rx. Patient was supposed to have injection today, but rescheduled for . Patient last seen for annual exam on 04/24/23. PSS: Please contact patient to schedule annual exam. Kamila Long RN documented in this encounter [facility] 05-01-2024 Telephone encounter Note Patient's request for medication is as follows: Requested Prescriptions Pending Prescriptions Disp Refills risankizumab-rzaa (SKYRIZI) 360 mg/2.4 mL (150 mg/mL) wearable injector 7.2 mL 0 Sig: Inject 360mg (1 device) subcutaneously every 8 weeks. Please approve the above prescription(s) to electronically send to pharmacy. [facility] 05-01-2024 Miscellaneous Notes Patient's request for medication is as follows: Requested Prescriptions Pending Prescriptions Disp Refills risankizumab-rzaa (SKYRIZI) 360 mg/2.4 mL (150 mg/mL) wearable injector 7.2 mL 0 Sig: Inject 360mg (1 device) subcutaneously every 8 weeks. Please approve the above prescription(s) to electronically send to pharmacy. documented in this encounter [facility] 04-18-2024 Instructions Karla Noriega PA-C - 04/18/2024 3:07 PM EST COLONOSCOPY BOWEL PREPARATION INSTRUCTIONS MiraLAX Your doctor has scheduled you for a colonoscopy. To have a successful colonoscopy, you must have a clean colon, that is empty. A clean colon allows your doctor to see the entire colon & diagnose issues like polyps or cancer. For doctors, a clean colon is like driving on a agustin day; a dirty colon like driving in a storm. It is very important that you follow these instructions exactly, or your colonoscopy may not be as effective, could be canceled, and you may need to do the bowel prep and colonoscopy again. TRANSPORTATION REQUIREMENTS You are receiving IV sedation. For your safety, a responsible adult escort must accompany you to and from your procedure: Your adult escort MUST be present with you at check-in for your colonoscopy. Your adult escort MUST remain in the endoscopy area until you are discharged. Your adult escort MUST transport you home once you are discharged. You are NOT allowed to operate any form of transportation (i.e. drive a car, bicycle, etc) or leave the Endoscopy Center ALONE. It is not safe to do so. If you cannot meet these requirements, your procedure will be canceled. MEDICATION REQUIREMENTS For your safety, certain medications will need to be stopped or adjusted before you can have your procedure: BLOOD THINNERS: If you take blood thinners, such as Coumadin (warfarin), Plavix (clopidogrel), Ticlid (ticlopidine hydrochloride), Agrylin (anagrelide), Xarelto (Rivaroxaban), Pradaxa (Dabigatran), Eliquis (Apixaban), or Effient (Prasugrel), contact the physician who is prescribing these medications at least 2 weeks prior to your procedure to discuss any necessary adjustments. DIABETES: If you take medications for diabetes, your dosage may need to be adjusted. If you are being treated for diabetes with insulin, diabetic pills, or other injectable medications do not take your REGULAR dose after midnight on the day of your procedure. If you are taking any other types of insulin such as Lantus, Humalog, NPH (long-acting insulin), or 70/30 insulin, take half your normal dose the day before your procedure. DIABETES/WEIGHT MANAGEMENT: If you take medications for weight-loss, your dosage may need to be adjusted Contact the doctor who prescribes this medication for further instructions. If you take medications for weight-loss like semaglutide (Ozempic, Wegovy, Rybelsus), dulaglutide (Trulicity), liraglutide (Victoza, Saxenda), exenatide (Byetta, Bydureon), or lixisenatide (Adylyxin), stop your medication 1 week prior to your procedure. If you take medications like canagliflozin (Invokana), dapagliflozin (Farxiga, Forxiga), empagliflozin (Jardiance), stop your medication 3 days prior to your procedure. If you take ertugliflozin (Steglatro) stop your medication 4 days prior to your procedure. IRON: If you take iron pills, STOP them 1 week BEFORE your procedure, may resume after. OTHER MEDS: May take all other medications (including aspirin, antibiotics, water pills / diuretics like Lasix or Metolozone, blood pressure meds, etc.) at their usual scheduled time with water. DIET REQUIREMENTS The day before your colonoscopy, you may have a clear liquid diet (see below). The day of your colonoscopy, you may continue a clear liquid diet until 3 hours before your colonoscopy. Within 3 hours of your colonoscopy, take only any medications (as above) with a sip of water. Clear Liquid Diet Broth (chicken, beef or vegetable broth or bullion. Just the broth, no solids). Water Coffee or Tea (NO milk or creamer), but sugar and sugar substitutes are allowed. Clear liquids including clear, yellow, green, blue (NO red, NO orange, NO purple) Sodas / soft drinks; Gatorade or other sports drinks Fruit juice (strained; no-pulp); Richard-Aid or flavored drinks Plain Jell-O or other gelatins Popsicles or hard candy Bowel prep can work differently from person to person. Some people's bowels move slowly and they may need different instructions. Please see your doctor in office or virtually for personalized bowel prep instructions if you have: BOWEL PREPARATION (MIRALAX/GATORADE) Split Dosing Bowel Prep: This means drinking your bowel prep in two doses. Split dosing helps clean your colon better and makes it less likely that your procedure will be canceled. You will need to purchase the following (no prescriptions are needed): 64 ounces Gatorade, Propel, Crystal Lite or other noncarbonated clear liquid sports drink (NOT red, orange, or purple). Diabetic patients buy sugar-free, e.g. Gatorade G2 4 Dulcolax laxative tablets containing 5mg bisacodyl each (do not buy the stool softener) 8.3 oz MiraLAX (238g) powder or generic polyethylene glycol 3350 (find in laxative aisle) The day before your colonoscopy mix 64 oz of the sports drink with 8.3 oz MiraLAX (238 g) in a pitcher. Stir or shake until MiraLAX completely dissolved. Chill if desired. On the evening before your colonoscopy: 5 PM take 4 Dulcolax laxative tablets with water by mouth. 6 PM drink the first half of the Gatorade/MiraLAX solution Drink one 8-ounce glass every 15 minutes. Six hours before your colonoscopy, drink the second half of the solution. Drink one 8-ounce glass every 15 minutes. You may continue a clear liquid diet until 3 hours before your colonoscopy. Bowel prep can work differently from person to person. Some people's bowels move slowly and they may need different instructions. Please see your doctor in office or virtually for personalized bowel prep instructions if you have: Medical condition that needs special accommodations Had a poor bowel prep results or failed bowel prep attempts in the past. Had difficulty with anesthesia during the procedure. FREQUENTLY ASKED QUESTIONS Q: What if I suffer from constipation? A: Recommend taking extra laxatives to resolve your constipation days prior to entering the bowel prep day. Q: What if have had prior poor preps results in past? A: Contact your physician as you will likely need additional bowel prep instructions. Q: What if I have motility issues like Parkinson's, MS (multiple sclerosis), wheelchair dependent, etc.? or on medications that slow colonic transit times (narcotics, gabapentin, anticholinergic medications etc.) A: Contact your physician as you will likely need extra time and additional laxatives to complete your bowel prep. Q: What if I cannot drink large volume of liquid? A: Start your prep 2-3 hours earlier to allow yourself more time to complete the entire prep. Q: What if I had bariatric surgery? Do I still have to complete the entire prep? A: Yes, gastric bypass surgery involves the stomach & small bowel. You may need to drink smaller amounts, slower (may need more time to complete your bowel prep). Gastric bypass does not alter the length of your colon so you will need to complete the entire bowel prep, it may just take longer time to complete it. Q: What if I am on dialysis? A: Please consult your dialysis clinical manager prior to scheduling to get instructions pertinent to you. In general, dialysis patients take the Nutrinoly bowel prep and have the procedure same day of their dialysis (colonoscopy in AM, dialysis in PM). Q: How do I know if something is considered as clear liquid diet? A: If you can pour it in a glass and you can see through it, it is considered clear liquid Q: Can I eat nuts, seeds, beans, popcorn, dried fruits, vegetables & fruits that have skin peel? A: No, you will need to not eat these items starting 3 days prior to procedure. Q: Can I take Uber/Lyft/taxi/bus home? A: An adult MUST be present with you at check-in for your colonoscopy and remain in the endoscopy area until you are discharged. You can take Uber home only if this adult escort is with you at check in, remain in the endoscopy area until you are discharged, and takes the Uber with you to home. Q: Can I sleep it off here and drive myself home? A: No, you must have an adult with you at time of procedure check in, remain in the endoscopy center during your procedure, and drive you home. You cannot drive a vehicle after your procedure the rest of the day. Q: What if I can't finish my bowel prep? A: If you cannot complete your entire bowel prep, there is high likelihood that your colonoscopy will need to be rescheduled due to inadequate prep quality. documented in this encounter [facility] 04-18-2024 Note HNO ID: [id number] Author: KARLA NORIEGA PA-C Service: ? Author Type: Physician Plate Put In Worker Type: Progress Notes Filed: 04/18/2024 15:28 Note Text: Virtual Follow Up Visit Provider Location: Non-[facility] Facility Patient Location: Patient Home or Place of Residence SUBJECTIVE Aly Solorio [id number] 1990 has requested a video telemedicine for follow up of Crohn's disease. Last seen 10/17/2022. IBD History (copied and updated from my prior notes) Ms. Solorio, is a 33 year old female with a history of Crohns disease diagnosed in 2000 and underwent a ileocolic resection in 2004. Was treated initially with Pentasa then Imuran and the after surgery was on IFX and AZA in the past as a child unclear why this was stopped. She has been treated with Adalimumab for the last several years. Recent endoscopy with i4 disease with stricture and on 09/16/2022 she underwent a laparoscopic redo ileocolic resection with Kono S anastomosis. Changes and test results since last visit: Doing well 2-3 BMs daily no blood no pain tolerating diet weight is stable. No nausea no bloating. Good appetite weight is stable No EIMs. Some fatigue overall health is good. Skyrizi last dose in December. Current Clinical Symptoms # of bowel movements daily: 2-3 Consistency: soft Bloody bowel movements: no Urgency: no Abdominal pain: no Abdominal distention: no Nausea/vomiting: no Weight loss over last 3 months: no Diagnosis Crohn's Disease: Date of diagnosis (year): 2000 Phenotype Location affected: ileum Behavior: inflammatory fibrostenotic Perianal disease: no Prior Medications/Dates/Reason for Switch Surgery: [facility] 09/16/2022: Laparoscopic redo ileocolic resection with Kono-S ileocolic anastomosis. Systemic steroids last year: No Enteric or rectal steroids last year: No Systemic 5-ASA: Pentasa early in disease course Local 5-ASA: No Thiopurines: AZA in the past Methotrexate: No Biologics: infliximab, unclear why this was stopped adalimumab, Current Small molecules: No Current Medications Adalimumab q 2 Labs TB Status: Negative 08/2018 Hepatitis B Status: Core Positive 08/2018 TPMT: Unknown Vaccines if on biologic therapy (Instructed to avoid live vaccines): Immunization History Administered Date(s) Administered COVID-19 original vaccine, age 12+ yr, monovalent ([employer] - PURPLE TOP) 10/21/2020 11/16/2020 Haemophilus influenzae b (Hib) vaccine, unspecified formulation 11/03/1994 diphtheria tetanus pertussis (DTaP) vaccine, unspecified formulation 11/03/1994 01/09/1995 03/14/1995 07/05/1996 08/04/1997 06/18/2002 hepatitis B (HepB) vaccine, 3-dose series, age 0 yr - 19 yr (ENGERIX B-PEDS, RECOMBIVAX HB-PEDS) 06/04/2003 02/24/2004 hepatitis B (HepB) vaccine, 3-dose series, age 20+ yr (ENGERIX-B, RECOMBIVAX HB) 05/30/2022 06/29/2022 12/12/2022 human papillomavirus (HPV4) vaccine, quadrivalent (GARDASIL) 11/09/2006 01/10/2007 05/15/2007 influenza (IIV3) vaccine, trivalent, PF (AFLURIA, FLUARIX, FLULAVAL, FLUVIRIN, FLUZONE) 10/28/2016 12/06/2017 influenza (IIV4) vaccine, age 6 mo - 64 yr, quadrivalent (AFLURIA, FLULAVAL, FLUZONE) 12/12/2019 11/22/2021 influenza (IIV4) vaccine, age 6 mo - 64 yr, quadrivalent, PF (AFLURIA, FLUARIX, FLULAVAL, FLUZONE) 03/15/2016 11/14/2022 influenza vaccine, whole virus 12/27/2003 01/12/2007 01/03/2008 measles mumps rubella (MMR) vaccine (M-M-R II, PRIORIX) 08/05/2003 02/24/2004 meningococcal (MenACWY-D) vaccine, quadrivalent (MENACTRA) 11/09/2006 poliovirus vaccine, unspecified formulation 11/03/1994 01/09/1995 03/14/1995 07/05/1996 tetanus diphtheria pertussis (Tdap) vaccine, age 7+ yr (ADACEL, BOOSTRIX) 01/27/2018 tuberculin skin test (TST-PPD), purified protein derivative, intradermal 05/30/2022 06/08/2022 varicella (AMADO) vaccine (VARIVAX) 08/05/2003 09/17/2008 Current Outpatient Medications Medication Sig Dispense Refill venlafaxine ER (EFFEXOR XR) 75 mg 24 hr capsule Take 1 capsule by mouth once daily. 90 capsule 3 venlafaxine ER (EFFEXOR XR) 37.5 mg 24 hr capsule Take 2 capsules by mouth once daily. 60 capsule 1 risankizumab-rzaa (SKYRIZI) 360 mg/2.4 mL (150 mg/mL) wearable injector Inject 360mg (1 device) subcutaneously every 8 weeks. 7.2 mL 0 medroxyPROGESTERone (DEPO-PROVERA) 150 mg/mL Inject 1 mL intramuscularly every 12 weeks. 1 mL 3 No current facility-administered medications for this visit. ALLERGIES No Known Allergies PAST SURGICAL HISTORY Procedure Laterality Date SECTION HX 03/29/2018 COLONOSCOPY STOMA W/ENDOSCOPIC MUCOSAL RESCJ 2005 small and large resection PAST SURGICAL HISTORY OF 09/16/2022 Laparoscopic redo ileocolic resection with Kono-S ileocolic anastomosis Review of Systems: GENERAL:No weight loss, malaise or fevers HEENT:Negative for frequent or significant headaches, No changes in hearing or vision, no nose bleeds or (more content not included)... [facility] 04-18-2024 History of Present illness Narrative Virtual Follow Up Visit Provider Location: Non-[facility] Facility Patient Location: Patient Home or Place of Residence SUBJECTIVE Aly Solorio [id number] 1990 has requested a video telemedicine for follow up of Crohn's disease. Last seen 10/17/2022. IBD History (copied and updated from my prior notes) Ms. Solorio, is a 33 year old female with a history of Crohns disease diagnosed in 2000 and underwent a ileocolic resection in 2004. Was treated initially with Pentasa then Imuran and the after surgery was on IFX and AZA in the past as a child unclear why this was stopped. She has been treated with Adalimumab for the last several years. Recent endoscopy with i4 disease with stricture and on 09/16/2022 she underwent a laparoscopic redo ileocolic resection with Kono S anastomosis. Changes and test results since last visit: Doing well 2-3 BMs daily no blood no pain tolerating diet weight is stable. No nausea no bloating. Good appetite weight is stable No EIMs. Some fatigue overall health is good. Jamaal last dose in December. Current Clinical Symptoms # of bowel movements daily: 2-3 Consistency: soft Bloody bowel movements: no Urgency: no Abdominal pain: no Abdominal distention: no Nausea/vomiting: no Weight loss over last 3 months: no Diagnosis Crohn's Disease: Date of diagnosis (year): 2000 Phenotype Location affected: ileum Behavior: inflammatory fibrostenotic Perianal disease: no Prior Medications/Dates/Reason for Switch Surgery: [facility] 09/16/2022: Laparoscopic redo ileocolic resection with Kono-S ileocolic anastomosis. Systemic steroids last year: No Enteric or rectal steroids last year: No Systemic 5-ASA: Pentasa early in disease course Local 5-ASA: No Thiopurines: AZA in the past Methotrexate: No Biologics: infliximab, unclear why this was stopped adalimumab, Current Small molecules: No Current Medications Adalimumab q 2 Labs TB Status: Negative 08/2018 Hepatitis B Status: Core Positive 08/2018 TPMT: Unknown Vaccines if on biologic therapy (Instructed to avoid live vaccines): Immunization History Administered Date(s) Administered COVID-19 original vaccine, age 12+ yr, monovalent ([employer] - PURPLE TOP) 10/21/2020 11/16/2020 Haemophilus influenzae b (Hib) vaccine, unspecified formulation 11/03/1994 diphtheria tetanus pertussis (DTaP) vaccine, unspecified formulation 11/03/1994 01/09/1995 03/14/1995 07/05/1996 08/04/1997 06/18/2002 hepatitis B (HepB) vaccine, 3-dose series, age 0 yr - 19 yr (ENGERIX B-PEDS, RECOMBIVAX HB-PEDS) 06/04/2003 02/24/2004 hepatitis B (HepB) vaccine, 3-dose series, age 20+ yr (ENGERIX-B, RECOMBIVAX HB) 05/30/2022 06/29/2022 12/12/2022 human papillomavirus (HPV4) vaccine, quadrivalent (GARDASIL) 11/09/2006 01/10/2007 05/15/2007 influenza (IIV3) vaccine, trivalent, PF (AFLURIA, FLUARIX, FLULAVAL, FLUVIRIN, FLUZONE) 10/28/2016 12/06/2017 influenza (IIV4) vaccine, age 6 mo - 64 yr, quadrivalent (AFLURIA, FLULAVAL, FLUZONE) 12/12/2019 11/22/2021 influenza (IIV4) vaccine, age 6 mo - 64 yr, quadrivalent, PF (AFLURIA, FLUARIX, FLULAVAL, FLUZONE) 03/15/2016 11/14/2022 influenza vaccine, whole virus 12/27/2003 01/12/2007 01/03/2008 measles mumps rubella (MMR) vaccine (M-M-R II, PRIORIX) 08/05/2003 02/24/2004 meningococcal (MenACWY-D) vaccine, quadrivalent (MENACTRA) 11/09/2006 poliovirus vaccine, unspecified formulation 11/03/1994 01/09/1995 03/14/1995 07/05/1996 tetanus diphtheria pertussis (Tdap) vaccine, age 7+ yr (ADACEL, BOOSTRIX) 01/27/2018 tuberculin skin test (TST-PPD), purified protein derivative, intradermal 05/30/2022 06/08/2022 varicella (AMADO) vaccine (VARIVAX) 08/05/2003 09/17/2008 Current Outpatient Medications Medication Sig Dispense Refill venlafaxine ER (EFFEXOR XR) 75 mg 24 hr capsule Take 1 capsule by mouth once daily. 90 capsule 3 venlafaxine ER (EFFEXOR XR) 37.5 mg 24 hr capsule Take 2 capsules by mouth once daily. 60 capsule 1 risankizumab-rzaa (SKYRIZI) 360 mg/2.4 mL (150 mg/mL) wearable injector Inject 360mg (1 device) subcutaneously every 8 weeks. 7.2 mL 0 medroxyPROGESTERone (DEPO-PROVERA) 150 mg/mL Inject 1 mL intramuscularly every 12 weeks. 1 mL 3 No current facility-administered medications for this visit. ALLERGIES No Known Allergies PAST SURGICAL HISTORY Procedure Laterality Date SECTION HX 03/29/2018 COLONOSCOPY STOMA W/ENDOSCOPIC MUCOSAL RESCJ 2005 small and large resection PAST SURGICAL HISTORY OF 09/16/2022 Laparoscopic redo ileocolic resection with Kono-S ileocolic anastomosis Review of Systems: GENERAL:No weight loss, malaise or fevers HEENT:Negative for frequent or significant headaches, No changes in hearing or vision, no nose bleeds or other nasal problems NECK:Negative for lumps, goiter, pain and significant neck swelling RESPIRATORY: Negative for cough, hemoptysis, wheezing, COPD, dyspnea or shortness of breath CARDIOVASCULAR: Negative for chest pain, leg swelling, hypertension, CHF or palpitations GASTROINTESTINAL: See HPI GENITOURINARY: No history of dysuria, frequency or incontinence 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 SKIN:Negative for lesions, rash, and itching PSYCHIATRIC: Negative for sleep disturbance, mood disorder and recent psychosocial stressors. HEMATOLOGIC/LYMPHATIC/IMMUNOLOGIC :Negative for prolonged bleeding, bruising easily or swollen nodes ENDOCRINE: Negative for cold or heat intolerance, polyuria, polydipsia and goiter The remainder of the ROS was negative. PHYSICAL EXAMINATION General: alert and appropriate, in no distress and well-hydrated, well nourished, Head: normocephalic, no abnormality or lesion noted, Eyes: visual acuity is grossly normal, no injection,, and EOMI, Oropharynx: moist mucus membranes, no tonsillar hypertrophy/exudate, uvula midline and pharynx non-erythematous, lips, teeth and gums are without obvious lesion, Neck: full ROM, no cervical LNs noted, Respiratory: breathing non-labored, and no grunting/flaring/retractions, Chest: equal chest rise with normal respiratory effort, Abdomen: flat appearing. Visible protrusions or hernias: No Incisions/scars: None Areas of pain/tenderness: Denies Skin: no rash noted, Neuro: Patient seen sitting with normal appearing strength and coordination. No focal motor deficits. Psych: Appropriate mood and interaction Most recent labs: CBC: WBC (k/uL) Date Value 11/09/2022 6.10 Hematocrit (%) Date Value 11/09/2022 37.3 MCV (fL) Date Value 11/09/2022 81.4 Platelet Count (k/uL) Date Value 11/09/2022 305 Lymphocytes % (%) Date Value 11/09/2022 33.6 Hepatic Function Panel: Albumin (g/dL) Date Value 11/09/2022 3.9 Bilirubin, Total (mg/dL) Date Value 11/09/2022 0.4 Alkaline Phosphatase (U/L) Date Value 11/09/2022 92 AST (U/L) Date Value 11/09/2022 49 (H) ALT (U/L) Date Value 11/09/2022 64 (H) Protein, Total (g/dL) Date Value 11/09/2022 6.7 CRP: CRP Date Value Ref Range Status 10/18/2022 <0.3 <0.9 mg/dL Final No results found for: QTBGOLD No results found for: HRINTP TB INTRADERMAL TEST Date Value Ref Range Status 06/10/2022 0 x 0mm 0 x 0 - 10 x 10 mm Final Comment: Negative No results found for: PTMPT No results found for: FOLATE Vitamin B12 Date Value Ref Range Status 08/24/2022 314 232 - 1,245 pg/mL Final No results found for: FE, TIBC Vitamin D 25 Hydroxy Date Value Ref Range Status 08/24/2022 19.0 (L) 31.0 - 80.0 ng/mL Final Comment: Classification of 25 OH Vitamin D status: Deficiency/Insufficiency: < or = 30 ng/ml. Sufficiency/Optimal Levels: 31-80 ng/mL Toxicity: > 100 ng/mL. Test performed by chemiluminescent immunoassay. Last Endoscopy: Colonoscopy 08/11/2022 Impression: - Patent [id number]-gn-vgin ileo-colonic anastomosis, characterized by healthy appearing mucosa. - Crohn's disease with ileitis 15 cm proximal to the anastomosis. Biopsied. - Stricture in the scout-terminal ileum. Dilated. - Stricture in the scout-terminal ileum. Biopsied. - Simple Endoscopic Score for Crohn's Disease: 6, mucosal inflammatory changes secondary to Crohn's disease with ileitis. Pathology FINAL DIAGNOSIS A. Ileum, biopsy: - Chronic active enteritis with erosion. - Negative for granulomatous inflammation and dysplasia. B. Ileum, biopsy: - Small intestinal mucosa with no diagnostic abnormality. - Negative for active and granulomatous inflammation. - Negative for dysplasia. Last Imaging: CTE 08/24/2022 IMPRESSION: Active inflammatory changes with stricturing and penetrating disease involving the distal ileum, overall similar in distribution compared to the prior CT 02/04/2022, but with interval improvement in the degree of inflammatory changes. Proctocolitis, also improved compared to prior CT. Assessment IMPRESSION (as copied and updated from my / note and reflects medical decision making today): 33 year old female with a history of Crohns disease diagnosed in 2000 and underwent a ileocolic resection in 2004. Was treated initially with Pentasa then Imuran and the after surgery was on IFX and AZA in the past as a child unclear why this was stopped. She has been treated with Adalimumab for the last several years. Recent endoscopy with i4 disease with stricture and on 09/16/2022 she underwent a laparoscopic redo ileocolic resection with Kono S anastomosis. She presents today as a routine virtual follow-up. Overall doing really well 2 throughout once daily no blood no pain tolerating diet weight stable. No nausea or bloating. Good appetite weight is stable. No extraintestinal manifestations does have some fatigue but overall health is good. Has not had Skyrizi since December due to insurance issues. Stressed the need for every 6-month follow-up will plan for routine blood work fecal calprotectin and will plan a colonoscopy in the next couple of months to reevaluate disease and response to risankizumab. Will plan follow-up after scope unless needed sooner. PLAN Labs Fecal nubia Continue risankizumab FLORIDALMA Stressed the need for follow-up every 6 months Plan colonoscopy with TI intubation and biopsies to fully reassess disease and response to risankizumab Plan follow-up after scope unless needed sooner Medical Decision Making: Problems: Low: Stable chronic illness Data: Unique test result(s) reviewed: 2 Unique test(s) ordered: 2 Risk: Moderate: Moderate risk from testing/treatment Medical Decision Making Level: 4 - Moderate I spent 20 minutes in the virtual visit, with more than 50% of the total meas-rw-mrmy time of the visit in counseling / coordination of care. I have confirmed and edited as necessary, the PFSH and ROS obtained by others. I will communicate my recommendations and prescriptions to the patient's primary care provider. Unrelated to E/M, telemedicine, or virtual visit service provided within previous 7 days. No E/M service or procedure anticipated within next 24 hours. I have communicated my name and active licensure. The patient's identity and physical location were verified at the time of this visit. Either the patient or their legal traffic representative has been informed of the risks and benefits of -- and alternatives to -- treatment through a remote evaluation and consents to proceed with the evaluation remotely. Karla Noriega PA-C April 18, 2024 3:01 PM documented in this encounter [facility] 04-17-2024 Telephone encounter Note No show letter #1 [facility] 04-17-2024 Miscellaneous Notes No show letter #1 documented in this encounter [facility] 04-10-2024 Telephone encounter Note Finally spoke to patient and she is ok with rx 75 mg daily going to pharmacy. Please send Jovita Shelby MA [facility] 04-10-2024 Miscellaneous Notes Finally spoke to patient and she is ok with rx 75 mg daily going to pharmacy. Please send Jovita Shelby MA PA completed by nurse and denied insurance will not pay for BID. Tried to re-submit but denied due to 75 mg is available. Left message on vm for patient to call back. Please ask if ok with changing rx to 75 mg once daily so insurance will pay. If ok please route to provider to re-send pended rx. Jovita Shelby MA documented in this encounter [facility] 04-10-2024 Telephone encounter Note Rescheduled. [facility] 04-10-2024 Miscellaneous Notes Rescheduled. On schedule for me in am at [place]. Make sure is aware it is at that location. documented in this encounter [facility] 04-10-2024 Telephone encounter Note On schedule for me in am at [place]. Make sure is aware it is at that location. [facility] 04-06-2024 Telephone encounter Note PA completed by nurse and denied insurance will not pay for BID. Tried to re-submit but denied due to 75 mg is available. Left message on vm for patient to call back. Please ask if ok with changing rx to 75 mg once daily so insurance will pay. If ok please route to provider to re-send pended rx. Jovita Shelby MA [facility] 04-03-2024 Telephone encounter Note Prescription Refill Information The patient has been identified by name and date of : Yes Caregiver verified no other encounters exist for this prescription request: Yes Caregiver confirmed with patient/requestor that no other refills are due, in the near future, with this provider at this time: Yes The last office visit in the department: 10/31/23 Does the patient have a future office visit with this provider/department: No but has a request in to get scheduled. Requested Prescriptions Pending Prescriptions Disp Refills venlafaxine ER (EFFEXOR XR) 37.5 mg 24 hr capsule 60 capsule 1 Sig: Take 1 capsule by mouth once daily. For one week and then 2 caps po q day Ford Brower LPN April 03, 2024 11:41 AM [facility] 04-03-2024 Miscellaneous Notes Prescription Refill Information The patient has been identified by name and date of : Yes Caregiver verified no other encounters exist for this prescription request: Yes Caregiver confirmed with patient/requestor that no other refills are due, in the near future, with this provider at this time: Yes The last office visit in the department: 10/31/23 Does the patient have a future office visit with this provider/department: No but has a request in to get scheduled. Requested Prescriptions Pending Prescriptions Disp Refills venlafaxine ER (EFFEXOR XR) 37.5 mg 24 hr capsule 60 capsule 1 Sig: Take 1 capsule by mouth once daily. For one week and then 2 caps po q day Ford Brower LPN April 03, 2024 11:41 AM documented in this encounter [facility] 02-27-2024 Note HNO ID: [id number] Author: KAMILA LONG RN Service: ? Author Type: Registered Nurse Type: Progress Notes Filed: 02/29/2024 09:01 Note Text: Patient identified by name and date of . Aly Solorio is here for a Depo Provera injection. Patient brought medication. Date last injected: out of range - negative test Depo-Provera, 150 mg, administered IM left upper quadrant gluteus, Lot # [id number], expiration date 07/27/2025. Depo-Provera was given without incident. Date of last menses: Patient's last menstrual period was 04/04/2023 (approximate). Irregular bleeding - No Menses ceased - Yes STD prevention discussed: Yes Patient instructed to return to clinic in 12 weeks. [email or web address] Provider Henrietta Aguilera MD was present in office at time of injection. Kamila Long RN [facility] 02-27-2024 History of Present illness Narrative Patient identified by name and date of . Aly Solorio is here for a Depo Provera injection. Patient brought medication. Date last injected: out of range - negative test Depo-Provera, 150 mg, administered IM left upper quadrant gluteus, Lot # [id number], expiration date 07/27/2025. Depo-Provera was given without incident. Date of last menses: Patient's last menstrual period was 04/04/2023 (approximate). Irregular bleeding - No Menses ceased - Yes STD prevention discussed: Yes Patient instructed to return to clinic in 12 weeks. [email or web address] [email or web address] Provider Henrietta Aguilera MD was present in office at time of injection. Kamila Long RN documented in this encounter [facility] 02-16-2024 Telephone encounter Note Jamaal prior authorization has been approved; however, due to insurance restrictions Rx must be filled at [facility]. If refill request approved, Rx will be sent to [facility] for processing. NOTE: Initial prior auth was completed by [facility] and expires on 08/15/2024. Future PA renewals will be the responsibility of the provider's office. Requested Prescriptions Pending Prescriptions Disp Refills risankizumab-rzaa (SKYRIZI) 360 mg/2.4 mL (150 mg/mL) wearable injector 7.2 mL 0 Sig: Inject 360mg (1 device) subcutaneously every 8 weeks. Please review and advise. Max Vora RPh [facility] 02-16-2024 Miscellaneous Notes Skyrizi prior authorization has been approved; however, due to insurance restrictions Rx must be filled at [facility]. If refill request approved, Rx will be sent to [facility] for processing. NOTE: Initial prior auth was completed by [facility] and expires on 08/15/2024. Future PA renewals will be the responsibility of the provider's office. Requested Prescriptions Pending Prescriptions Disp Refills risankizumab-rzaa (SKYRIZI) 360 mg/2.4 mL (150 mg/mL) wearable injector 7.2 mL 0 Sig: Inject 360mg (1 device) subcutaneously every 8 weeks. Please review and advise. Max Vora RPh documented in this encounter [facility] 02-15-2024 History of Present illness Narrative Benefits investigation was conducted, indicating that patient has new insurance, and a prior authorization is required for Skyrizi OBI. PA was initiated and pending review. Plan Name: [employer] Cover[employer]ymeds [place]: [id number] [facility] [phone] documented in this encounter [facility] 02-15-2024 Note HNO ID: [id number] Author: ?, ?, ? Service: ? Author Type: ? Type: Progress Notes Filed: 02/15/2024 07:34 Note Text: Benefits investigation was conducted, indicating that patient has new insurance, and a prior authorization is required for Skyrizi OBI. PA was initiated and pending review. Plan Name: [employer] Cover[employer]ymeds [place]: [id number] Jazmin Baez CPhT [facility] [phone] [facility] 02-15-2024 Note HNO ID: [id number] Author: ?, ?, ? Service: ? Author Type: ? Type: Progress Notes Filed: 02/16/2024 07:24 Note Text: Prior authorization was approved for Skyrizi OBI. Plan Name: Janna PA reference number: [id number] Approval Dates: 02/15/24 - 08/15/24 However, s/he is required to use [facility] to fill this medication. Will queue prescription(s) to go to designated specialty pharmacy. For reference, their pharmacy phone number is [phone]. No further action by [facility]. Jazmin Baez [facility] [phone] [facility] 12-18-2023 Note HNO ID: [id number] Author: ?, ?, ? Service: ? Author Type: ? Type: Progress Notes Filed: 12/21/2023 10:27 Note Text: [facility] Refill Assessment Medication(s): Skyrizi OBI Patient's current medication list and adherence status to current therapy were reviewed by Specialty Pharmacy clinical pharmacist to identify any new drug interactions or non-compliance to therapy. Therapy continues to be appropriate for disease, patient response, and medical condition. Verification of therapeutic benefit and effectiveness with current therapy was completed. Adverse events, barriers in adherence, and side effects were assessed and addressed if applicable. Will proceed with refill with no changes in therapy - patient progressing towards achieving therapeutic goals based on medication-specific laboratory parameters, disease state markers and outcomes. Office/provider notes have been reviewed prior to dispensing the medication. Operational Risk Manager Assessment Patient confirmed: Yes Med/dose confirmed: Yes Missed doses: No Estimated days supply on hand: 0 Next cycle/dose due: 12/28/23 Copay amount: 0 Payment confirmed: Yes Delivery method: FedEx Signature required: Waived on patient request Delivery address: [address] [place] [address] Delivery date: 12/27/23 Questions or concerns for the pharmacist?: No Did you have any side effects believed to be related to this medication, that resulted in hospitalization?: No Current Outpatient Medications on File Prior to Visit Medication Sig venlafaxine ER (EFFEXOR XR) 37.5 mg 24 hr capsule Take 1 capsule by mouth once daily. For one week and then 2 caps po q day risankizumab-rzaa (SKYRIZI) 360 mg/2.4 mL (150 mg/mL) wearable injector Inject 360mg (1 device) subcutaneously every 8 weeks. medroxyPROGESTERone (DEPO-PROVERA) 150 mg/mL Inject 1 mL intramuscularly every 12 weeks. Current Facility-Administered Medications on File Prior to Visit Medication medroxyPROGESTERone 150 mg injection (DEPO-PROVERA) [facility] SPECIALTY CLINICAL ASSESSMENT - INFLAMMATORY CONDITIONS V6: Assessment to use: Refill Date of influenza vaccination reminder: 11/01/2023 Date of most recent vaccination assessment: 11/01/2023 Treatment Plan Information: Skyrizi OBI 360mg/2.4mL Inject 360mg subcutaneoulsy every 8 weeks. K50.819 Crohn's Disease of both small and large intestine with complication IV doses given: 12/26/22 01/23/23 02/21/23 Est. Tx Plan Start Date: No information available Estimated Start Date Info: No information available Est. Estimated Treatment Duration: Until loss of efficacy and/or no longer tolerated. Jazmin Baez [facility] [phone] [facility] 11-22-2023 Note HNO ID: [id number] Author: RANDY BOJORQUEZ APRN.PAINTER AIRCRAFT Service: ? Author Type: Nurse Practitioner Type: Progress Notes Filed: 11/22/2023 17:56 Note Text: Subjective HPI HPI Aly Solorio is a 33 year old female who presents today for CC of left leg sore, has had plant rash for 1 week, one area now painful/swelling. Has tried steroid cream without relief. Symptoms are worsened by nothing. Risk factors recently hiking. Denies possibility of being . .Patient presents with: lower left leg sore: X 1 week PAST MEDICAL HISTORY Diagnosis Date ASCUS with positive high risk HPV cervical 05/11/2018 Colopscopy benign Crohn disease (HCC) 2000 Small bowel obstruction (HCC) 02/06/2022 PAST SURGICAL HISTORY Procedure Laterality Date SECTION HX 03/29/2018 COLONOSCOPY STOMA W/ENDOSCOPIC MUCOSAL RESCJ 2005 small and large resection PAST SURGICAL HISTORY OF 09/16/2022 Laparoscopic redo ileocolic resection with Kono-S ileocolic anastomosis ALLERGIES Patient has no allergy information on record. MEDICATIONS venlafaxine ER (EFFEXOR XR) 37.5 mg 24 hr capsuleTake 1 capsule by mouth once daily. For one week and then 2 caps po q dayDisp: 60 capsuleRfl: 1 risankizumab-rzaa (SKYRIZI) 360 mg/2.4 mL (150 mg/mL) wearable injectorInject 360mg (1 device) subcutaneously every 8 weeks.Disp: 7.2 mLRfl: 0 medroxyPROGESTERone (DEPO-PROVERA) 150 mg/mLInject 1 mL intramuscularly every 12 weeks.Disp: 1 mLRfl: 3 predniSONE (DELTASONE) 10 mg tabletTake 4 tabs daily x 3 days, then 3 tabs x 3 days, 2 tabs x 3 days, then 1 tab x3 days with food.Disp: 30 tabletRfl: 0 cephALEXin (KEFLEX) 500 mg capsuleTake 1 capsule by mouth three times a day for 7 days.Disp: 21 capsuleRfl: 0 FAMILY HISTORY Adopted: Yes Problem Relation Age of Onset Cancer Father Lung Social History Tobacco Use Smoking status: Former Current packs/day: 0.00 Types: Cigarettes Quit date: 2018 Years since quittin.7 Smokeless tobacco: Never Vaping Use Vaping status: current everyday user Substances: Nicotine Devices: LIN TV tank Substance Use Topics Alcohol use: Yes Comment: occasional Drug use: Never Review of Systems Constitutional: Negative for chills and fever. Skin: Positive for itching and rash (Positive for clear, watery drainage. Denies warmth and purulent drainage. ). Objective Blood pressure 128/64, pulse 80, temperature 37.2 ?C (98.9 ?F), temperature source Tympanic, resp. rate 18, weight 67.6 kg (149 lb 0.5 oz), last menstrual period 04/04/2023, SpO2 99%. Physical Exam Constitutional: General: She is not in acute distress. Appearance: She is not toxic-appearing or diaphoretic. HENT: Head: Normocephalic and atraumatic. Skin: General: Skin is warm and dry. Findings: Rash present. Rash is vesicular (distribution linear ). Neurological: Mental Status: She is alert and oriented to person, place, and time. ASSESSMENT/PLAN: 1. Rhus dermatitis - ICD9: 692.6, ICD10: L25.5 (primary diagnosis) - Oral Steriod tx -Prednisone taper - discussed skin care of rash - follow up if symptoms persist or worsen. 2. Secondary infection of skin - ICD9: 686.8, ICD10: L08.89 -use medication as prescribed -follow up if symptoms persist, worsen, change - CEPHALEXIN 500 MG CAPSULE Randy Bojorquez APRN.PAINTER AIRCRAFT [facility] 11-22-2023 History of Present illness Narrative Images from the original note were not included. Subjective HPI HPI Aly Solorio is a 33 year old female who presents today for CC of left leg sore, has had plant rash for 1 week, one area now painful/swelling. Has tried steroid cream without relief. Symptoms are worsened by nothing. Risk factors recently hiking. Denies possibility of being . .Patient presents with: lower left leg sore: X 1 week PAST MEDICAL HISTORY Diagnosis Date ASCUS with positive high risk HPV cervical 05/11/2018 Colopscopy benign Crohn disease (HCC) 1999 Small bowel obstruction (HCC) 02/06/2022 PAST SURGICAL HISTORY Procedure Laterality Date SECTION HX 03/29/2018 COLONOSCOPY STOMA W/ENDOSCOPIC MUCOSAL RESCJ 2004 small and large resection PAST SURGICAL HISTORY OF 09/16/2022 Laparoscopic redo ileocolic resection with Kono-S ileocolic anastomosis ALLERGIES Patient has no allergy information on record. MEDICATIONS venlafaxine ER (EFFEXOR XR) 37.5 mg 24 hr capsule^Take 1 capsule by mouth once daily. For one week and then 2 caps po q day^Disp: 60 capsule^Rfl: 1 risankizumab-rzaa (SKYRIZI) 360 mg/2.4 mL (150 mg/mL) wearable injector^Inject 360mg (1 device) subcutaneously every 8 weeks.^Disp: 7.2 mL^Rfl: 0 medroxyPROGESTERone (DEPO-PROVERA) 150 mg/mL^Inject 1 mL intramuscularly every 12 weeks.^Disp: 1 mL^Rfl: 3 predniSONE (DELTASONE) 10 mg tablet^Take 4 tabs daily x 3 days, then 3 tabs x 3 days, 2 tabs x 3 days, then 1 tab x3 days with food.^Disp: 30 tablet^Rfl: 0 cephALEXin (KEFLEX) 500 mg capsule^Take 1 capsule by mouth three times a day for 7 days.^Disp: 21 capsule^Rfl: 0 FAMILY HISTORY Adopted: Yes Problem Relation Age of Onset Cancer Father Lung Social History Tobacco Use Smoking status: Former Current packs/day: 0.00 Types: Cigarettes Quit date: 2019 Years since quittin.7 Smokeless tobacco: Never Vaping Use Vaping status: current everyday user Substances: Nicotine Devices: Refillable tank Substance Use Topics Alcohol use: Yes Comment: occasional Drug use: Never Review of Systems Constitutional: Negative for chills and fever. Skin: Positive for itching and rash (Positive for clear, watery drainage. Denies warmth and purulent drainage. ). Objective Blood pressure 128/64, pulse 80, temperature 37.2 C (98.9 F), temperature source Tympanic, resp. rate 18, weight 67.6 kg (149 lb 0.5 oz), last menstrual period 04/04/2023, SpO2 99%. Physical Exam Constitutional: General: She is not in acute distress. Appearance: She is not toxic-appearing or diaphoretic. HENT: Head: Normocephalic and atraumatic. Skin: General: Skin is warm and dry. Findings: Rash present. Rash is vesicular (distribution linear ). Neurological: Mental Status: She is alert and oriented to person, place, and time. ASSESSMENT/PLAN: 1. Rhus dermatitis - ICD9: 692.6, ICD10: L25.5 (primary diagnosis) - Oral Steriod tx -Prednisone taper - discussed skin care of rash - follow up if symptoms persist or worsen. 2. Secondary infection of skin - ICD9: 686.8, ICD10: L08.89 -use medication as prescribed -follow up if symptoms persist, worsen, change - CEPHALEXIN 500 MG CAPSULE Randy Bojorquez APRN.[employer] documented in this encounter [facility] 10-31-2023 Instructions Roque Pope MD - 10/31/2023 11:19 AM EDT [place] [facility] - Insurance Therapy/Counseling [facility] [address] [place] [address] [facility] [address] [place] [address] [address] [address] [place] [address] [place] [address] [facility] [address] [place] [address] [facility], [facility]. [address] [address] [employer] [address] [place] [address] [facility] [address] [place] [address] documented in this encounter [facility] 10-31-2023 Note HNO ID: [id number] Author: ROQUE POPE MD Service: ? Author Type: Physician Type: Progress Notes Filed: 10/31/2023 11:29 Note Text: Patient presents with: Wellness HPI: Patient presents today for office visit for wellness exam. I last saw her in 2019 Follows with Gastro and Colorectal surgery. Underwent laparoscopic redo ileocolic resection with kono-S ileocolic anastomosis on 09/16/22. Surgery went well. No complications. No current issues or concerns. Continues on Skyrizi injection q 8 weeks. Would like to discuss restarting her Effexor ER. Was on 75 mg daily. Was doing well on this but would miss doses frequently and then eventually just stopped taking it. 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 Notices a difference not taking it. States she probably would benefit talking with someone. Does not see psych or counseling. Has lack of focus. Refers to being scatter brained all the time. Gets stressed out easily. Not productive. Fatigued. [place]len more down after stopping. No suicidal ideation. Has followed with establishment guide. MEDICATIONS: Current Outpatient Medications Medication Sig risankizumab-rzaa (SKYRIZI) 360 mg/2.4 mL (150 mg/mL) wearable injector Inject 360mg (1 device) subcutaneously every 8 weeks. medroxyPROGESTERone (DEPO-PROVERA) 150 mg/mL Inject 1 mL intramuscularly every 12 weeks. Current Facility-Administered Medications Medication Dose Route Frequency medroxyPROGESTERone 150 mg injection (DEPO-PROVERA) 150 mg INTRAMUSCULAR every 12 weeks ALLERGIES: ALLERGIES No Known Allergies PAST MEDICAL HISTORY 05/11/2018: ASCUS with positive high risk HPV cervical Comment: Colopscopy benign 2000: Crohn disease (HCC) 02/06/2022: Small bowel obstruction (HCC) PAST SURGICAL HISTORY 03/29/2018: SECTION HX 2005: COLONOSCOPY STOMA W/ENDOSCOPIC MUCOSAL RESCJ Comment: small and large resection 09/16/2022: PAST SURGICAL HISTORY OF Comment: Laparoscopic redo ileocolic resection with Kono-S ileocolic anastomosis FAMILY HISTORY Adopted: Yes Problem Relation Age of Onset Cancer Father Lung Social History Tobacco Use Smoking status: Former Current packs/day: 0.00 Types: Cigarettes Quit date: 2018 Years since quittin.6 Smokeless tobacco: Never Vaping Use Vaping status: current everyday user Substances: Nicotine Devices: PushSpring[employer] tank Substance Use Topics Alcohol use: Yes Comment: occasional Drug use: Never Discussed tobacco cessation, including risks of continued use. Offered assistance to help quit if patient desires. Reviewed current medications, allergies, past medical history, surgical history, family history and social history today. REVIEW OF SYSTEMS GENERAL: No weight loss, malaise or fevers HEENT: Negative for frequent or significant headaches, No changes in hearing or vision, no nose bleeds or other nasal problems NECK: Negative for lumps, goiter, pain and significant neck swelling RESPIRATORY: Negative for cough, hemoptysis, wheezing, COPD, dyspnea or shortness of breath CARDIOVASCULAR: Negative for chest pain, leg swelling, hypertension, CHF or palpitations : No history of dysuria, frequency or incontinence SKIN: Negative for lesions, rash, and itching HEMATOLOGY/LYMPHOLOGY: Negative for prolonged bleeding, bruising easily or swollen nodes NEURO: No history of headaches, syncope, paralysis, seizures or tremors All other reviewed and negative other than HPI. HEALTH MAINTENANCE: Reviewed health maintenance issues today and recommended the following in detail. Depression Screening Never done HIV Screening Never done Covid-19 Vaccine( - 2022- season) due on 10/29/2023 Influenza Vaccine(1) due on 10/29/2023 VITALS: BP 98/64 Pulse 84 Ht 151 cm (4' 11.45) Wt 69.9 kg (154 lb 3.2 oz) LMP 04/04/2023 (Approximate) SpO2 99% BMI 30.68 kg/m? Last 4 Encounter Wt Readings: Date: Wt: 10/17/2023 69.9 kg (154 lb) 07/25/2023 72.6 kg (160 lb) 04/24/2023 79.3 kg (174 lb 12.8 oz) 04/17/2023 78.9 kg (174 lb) PHYSICAL EXAMINATION: General appearance: Well appearing, alert, in no acute distress, well-hydrated, well nourished. Skin: Skin color, texture, turgor normal, no suspicious rashes or lesions Head: Normocephalic, no masses, lesions, tenderness or abnormalities Eyes: Anicteric sclera. Pupils are equally round and reactive to light. Extraocular movements are intact. Ears: External ears normal, canals clear Nose/Sinuses: Nares normal, septum midline, mucosa normal, no drainage or sinus tenderness Oropharynx: Lips, mucosa, and tongue normal, teeth and gums normal, oropharynx normal Neck: Supple, no adenopathy; thyroid symmetric, normal size, no bruits Back: Normal exam Lungs: Lungs clear to auscultation. No wheezing, rhonchi, rales Heart: RRR without murmur, gallop, or rubs. No ectopy Abdomen: Normal abdominal exam, Abdomen s (more content not included)... [facility] 10-31-2023 History of Present illness Narrative Patient presents with: Wellness HPI: Patient presents today for office visit for wellness exam. I last saw her in 2019 Follows with Gastro and Colorectal surgery. Underwent laparoscopic redo ileocolic resection with kono-S ileocolic anastomosis on 09/16/22. Surgery went well. No complications. No current issues or concerns. Continues on Skyrizi injection q 8 weeks. Would like to discuss restarting her Effexor ER. Was on 75 mg daily. Was doing well on this but would miss doses frequently and then eventually just stopped taking it. 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 Notices a difference not taking it. States she probably would benefit talking with someone. Does not see psych or counseling. Has lack of focus. Refers to being scatter brained all the time. Gets stressed out easily. Not productive. Fatigued. Ihlen more down after stopping. No suicidal ideation. Has followed with establishment guide. MEDICATIONS: Current Outpatient Medications Medication Sig risankizumab-rzaa (SKYRIZI) 360 mg/2.4 mL (150 mg/mL) wearable injector Inject 360mg (1 device) subcutaneously every 8 weeks. medroxyPROGESTERone (DEPO-PROVERA) 150 mg/mL Inject 1 mL intramuscularly every 12 weeks. Current Facility-Administered Medications Medication Dose Route Frequency medroxyPROGESTERone 150 mg injection (DEPO-PROVERA) 150 mg INTRAMUSCULAR every 12 weeks ALLERGIES: ALLERGIES No Known Allergies PAST MEDICAL HISTORY 05/11/2018: ASCUS with positive high risk HPV cervical Comment: Colopscopy benign 2000: Crohn disease (HCC) 02/06/2022: Small bowel obstruction (HCC) PAST SURGICAL HISTORY 03/29/2018: SECTION HX 2005: COLONOSCOPY STOMA W/ENDOSCOPIC MUCOSAL RESCJ Comment: small and large resection 09/16/2022: PAST SURGICAL HISTORY OF Comment: Laparoscopic redo ileocolic resection with Kono-S ileocolic anastomosis FAMILY HISTORY Adopted: Yes Problem Relation Age of Onset Cancer Father Lung Social History Tobacco Use Smoking status: Former Current packs/day: 0.00 Types: Cigarettes Quit date: 2018 Years since quittin.6 Smokeless tobacco: Never Vaping Use Vaping status: current everyday user Substances: Nicotine Devices: [employer] tank Substance Use Topics Alcohol use: Yes Comment: occasional Drug use: Never Discussed tobacco cessation, including risks of continued use. Offered assistance to help quit if patient desires. Reviewed current medications, allergies, past medical history, surgical history, family history and social history today. REVIEW OF SYSTEMS GENERAL: No weight loss, malaise or fevers HEENT: Negative for frequent or significant headaches, No changes in hearing or vision, no nose bleeds or other nasal problems NECK: Negative for lumps, goiter, pain and significant neck swelling RESPIRATORY: Negative for cough, hemoptysis, wheezing, COPD, dyspnea or shortness of breath CARDIOVASCULAR: Negative for chest pain, leg swelling, hypertension, CHF or palpitations : No history of dysuria, frequency or incontinence SKIN: Negative for lesions, rash, and itching HEMATOLOGY/LYMPHOLOGY: Negative for prolonged bleeding, bruising easily or swollen nodes NEURO: No history of headaches, syncope, paralysis, seizures or tremors All other reviewed and negative other than HPI. HEALTH MAINTENANCE: Reviewed health maintenance issues today and recommended the following in detail. Depression Screening Never done HIV Screening Never done Covid-19 Vaccine( - season) due on 10/29/2023 Influenza Vaccine(1) due on 10/29/2023 VITALS: BP 98/64 Pulse 84 Ht 151 cm (4' 11.45) Wt 69.9 kg (154 lb 3.2 oz) LMP 04/04/2023 (Approximate) SpO2 99% BMI 30.68 kg/m Last 4 Encounter Wt Readings: Date: Wt: 10/17/2023 69.9 kg (154 lb) 07/25/2023 72.6 kg (160 lb) 04/24/2023 79.3 kg (174 lb 12.8 oz) 04/17/2023 78.9 kg (174 lb) PHYSICAL EXAMINATION: General appearance: Well appearing, alert, in no acute distress, well-hydrated, well nourished. Skin: Skin color, texture, turgor normal, no suspicious rashes or lesions Head: Normocephalic, no masses, lesions, tenderness or abnormalities Eyes: Anicteric sclera. Pupils are equally round and reactive to light. Extraocular movements are intact. Ears: External ears normal, canals clear Nose/Sinuses: Nares normal, septum midline, mucosa normal, no drainage or sinus tenderness Oropharynx: Lips, mucosa, and tongue normal, teeth and gums normal, oropharynx normal Neck: Supple, no adenopathy; thyroid symmetric, normal size, no bruits Back: Normal exam Lungs: Lungs clear to auscultation. No wheezing, rhonchi, rales Heart: RRR without murmur, gallop, or rubs. No ectopy Abdomen: Normal abdominal exam, Abdomen soft, non-tender. Bowel sounds normal. No masses, organomegaly Extremities: No deformities, edema, skin discoloration, clubbing or cyanosis. Good capillary refill. Musculoskeletal: No joint swelling, deformity, or tenderness Peripheral pulses: Normal Neuro: Negative. ASSESSMENT/PLAN: 1. Well adult exam - ICD9: V70.0, ICD10: Z00.00 (primary diagnosis) - stable. - COMPLETE BLOOD COUNT AND DIFFERENTIAL - COMPREHENSIVE METABOLIC PANEL - LIPID PANEL BASIC 2. Small bowel obstruction (HCC) - ICD9: 560.9, ICD10: K56.609 - call if any issus. 3. S/P small bowel resection - ICD9: V45.89, ICD10: Z90.49 - stable. 4. Crohn's disease of both small and large intestine with complication (HCC) - ICD9: 555.2, ICD10: K50.819 - follow labs. - COMPLETE BLOOD COUNT AND DIFFERENTIAL - COMPREHENSIVE METABOLIC PANEL 5. Nicotine use disorder, F17.2 - ICD9: 305.1, ICD10: F17.200 - Cessation encouraged. - Physiologic and physical aspects of tobacco addiction as well as strategies for quitting were discussed. - Counseling was given focusing on the harmful effects of this addiction especially given the patient's medical condition(s) which will be worsened because of the chemicals in tobacco. 6. Anxiety - ICD9: 300.00, ICD10: F41.9 - Discussed risks and benefits of new medication with the patient. Advised them to call if any side effects or questions. - can probably write for 75 mg caps if doing well. Recheck one month. - CONSULT TO [facility] - VENLAFAXINE ER 37.5 MG CAPSULE,EXTENDED RELEASE 24 HR 7. History of small bowel obstruction - ICD9: V12.79, ICD10: Z87.19 - stable. 8. Atypical squamous cell changes of undetermined significance (ASCUS) on cervical cytology with positive high risk human papilloma virus (HPV) - ICD9: 795.01, 795.05, ICD10: R87.610, R87.810 - per gy. 9. Class 1 obesity with body mass index (BMI) of 30.0 to 30.9 in adult, unspecified obesity type, unspecified whether - LIPID PANEL BASIC Roque Pope MD RTO in one month for recheck on meds. documented in this encounter [facility] 10-19-2023 Note HNO ID: [id number] Author: JOSELINE KEYS RPh Service: ? Author Type: ? Type: Progress Notes Filed: 11/01/2023 08:32 Note Text: [facility] Refill Assessment Medication(s): Jamaal Patient's current medication list and adherence status to current therapy were reviewed by Specialty Pharmacy clinical pharmacist to identify any new drug interactions or non-compliance to therapy. Therapy continues to be appropriate for disease, patient response, and medical condition. Verification of therapeutic benefit and effectiveness with current therapy was completed. Adverse events, barriers in adherence, and side effects were assessed and addressed if applicable. Will proceed with refill with no changes in therapy - patient progressing towards achieving therapeutic goals based on medication-specific laboratory parameters, disease state markers and outcomes. Office/provider notes have been reviewed prior to dispensing the medication. Pt overdue for office visit. Joseline Keys PharmD Clinical Pharmacist, [employer] [facility] ; Pool: P [facility] Pool #: [id number] Operational Risk Manager Assessment Med/dose confirmed: Yes Supplies needed: Alcohol swabs, Sharps container, Bandages Missed doses: Yes Count of missed doses: 1 Reason for missed doses: Forgot when next dose was due Estimated days supply on hand: 0 Next cycle/dose due: 10/31/23 Copay amount: 0 Payment confirmed: Yes Delivery method: FedEx Signature required: Waived on patient request Delivery address: [address] [place] [address] Delivery date: 11/02/23 Questions or concerns for the pharmacist?: No Did you have any side effects believed to be related to this medication, that resulted in hospitalization?: No Current Outpatient Medications on File Prior to Visit Medication Sig risankizumab-rzaa (SKYRIZI) 360 mg/2.4 mL (150 mg/mL) wearable injector Inject 360mg (1 device) subcutaneously every 8 weeks. medroxyPROGESTERone (DEPO-PROVERA) 150 mg/mL Inject 1 mL intramuscularly every 12 weeks. Current Facility-Administered Medications on File Prior to Visit Medication medroxyPROGESTERone 150 mg injection (DEPO-PROVERA) [facility] CLINICAL ASSESSMENT - INFLAMMATORY CONDITIONS V6: Assessment to use: Refill Assessment of injection issues: Yes Infection screening, including annual TB assessment when applicable to medication: Yes Current medication list (including drug interaction assessment): Yes Experience of adverse reactions to the medication: Yes Date of influenza vaccination reminder: 03/13/2023 Date of most recent vaccination assessment: 03/13/2023 Treatment Plan Information: Skyrizi OBI 360mg/2.4mL Inject 360mg subcutaneoulsy every 8 weeks. K50.819 Crohn's Disease of both small and large intestine with complication IV doses given: 12/26/22 01/23/23 02/21/23 Est. Tx Plan Start Date: No information available Estimated Start Date Info: No information available Est. Estimated Treatment Duration: Until loss of efficacy and/or no longer tolerated. Maria Luz Wolff [facility] P: [phone] F:[phone] [facility] 10-17-2023 Note HNO ID: [id number] Author: FORD GUTIERREZ RN Service: ? Author Type: Registered Nurse Type: Progress Notes Filed: 10/17/2023 16:23 Note Text: Patient identified by name and date of . Aly Solorio is here for a Depo Provera injection. Patient brought medication. Date last injected: 07/25/2023 Depo-Provera, 150 mg, administered IM right upper quadrant gluteus, Lot # [id number], expiration date 07/27/2026. Depo-Provera was given without incident. Date of last menses: Patient's last menstrual period was 04/04/2023 (approximate). Irregular bleeding - No Menses ceased - Yes Patient instructed to return to clinic in 12 weeks. [email or web address] [email or web address] Provider KENNY was present in office at time of injection. Ford Gutierrez RN [facility] 10-17-2023 History of Present illness Narrative Patient identified by name and date of . Aly Solorio is here for a Depo Provera injection. Patient brought medication. Date last injected: 07/25/2023 Depo-Provera, 150 mg, administered IM right upper quadrant gluteus, Lot # [id number], expiration date 07/27/2026. Depo-Provera was given without incident. Date of last menses: Patient's last menstrual period was 04/04/2023 (approximate). Irregular bleeding - No Menses ceased - Yes Patient instructed to return to clinic in 12 weeks. [email or web address] [email or web address] Provider KENNY was present in office at time of injection. Ford Gutierrez, RN documented in this encounter [facility] 09-20-2023 Telephone encounter Note Patient needs refill of Skyrizi Date of Aly Solorio's last Gastroenterology office visit: 10/17/22 Next appointment date: None Last labs: 08/24/22 Last TB test: TB Result Date Value Ref Range Status 08/24/2022 Negative Final Requested Prescriptions Pending Prescriptions Disp Refills risankizumab-rzaa (SKYRIZI) 360 mg/2.4 mL (150 mg/mL) wearable injector 7.2 mL 0 Sig: Inject 360mg (1 device) subcutaneously every 8 weeks. Patient prefers: [facility] Thank you! Joseline Keys PharmD Clinical Pharmacist, [facility] ; Pool: [facility] Pool #: [id number] [facility] 09-20-2023 Miscellaneous Notes Patient needs refill of Skyrizi Date of Aly Solorio's last Gastroenterology office visit: 10/17/22 Next appointment date: None Last labs: 08/24/22 Last TB test: TB Result Date Value Ref Range Status 08/24/2022 Negative Final Requested Prescriptions Pending Prescriptions Disp Refills risankizumab-rzaa (SKYRIZI) 360 mg/2.4 mL (150 mg/mL) wearable injector 7.2 mL 0 Sig: Inject 360mg (1 device) subcutaneously every 8 weeks. Patient prefers: [facility] Thank you! Joseline Keys PharmD Clinical Pharmacist, [facility] ; Pool: [facility] Pool #: [id number] documented in this encounter [facility] 08-23-2023 History of Present illness Narrative Benefits investigation was conducted, indicating that a re-authorization is required for Skyrizi OBI. PA was initiated and pending review. Plan Name: Janet Shoemaker Moreno: [id number] Baez [facility] [phone] documented in this encounter [facility] 08-23-2023 Note HNO ID: [id number] Author: ?, ?, ? Service: ? Author Type: ? Type: Progress Notes Filed: 08/23/2023 10:26 Note Text: Benefits investigation was conducted, indicating that a re-authorization is required for Skyrizi OBI. PA was initiated and pending review. Plan Name: Janet Shoemaker Moreno: [id number] Baez [facility] [phone] [facility] 08-23-2023 Note HNO ID: [id number] Author: ?, ?, ? Service: ? Author Type: ? Type: Progress Notes Filed: 08/29/2023 08:33 Note Text: Skyrizi OBI PA was approved with details listed below. Plan Name: Janet BURGER reference number: [id number] Approval Dates: 08/23/23 - 08/21/24 Prescriptions will now be processed through [facility] for determination of next steps. Jazmin Baez [facility] [phone] [facility] 08-23-2023 History of Present illness Narrative [facility] Refill Assessment Medication(s): Skyrizi OBI Patient's current medication list and adherence status to current therapy were reviewed by Specialty Pharmacy clinical pharmacist to identify any new drug interactions or non-compliance to therapy. Therapy continues to be appropriate for disease, patient response, and medical condition. Verification of therapeutic benefit and effectiveness with current therapy was completed. Adverse events, barriers in adherence, and side effects were assessed and addressed if applicable. Will proceed with refill with no changes in therapy - patient progressing towards achieving therapeutic goals based on medication-specific laboratory parameters, disease state markers and outcomes. Quiana SchmittD Clinical Pharmacist, [employer] [facility] ; Pool: [facility] Pool #: [id number] Operational Risk Manager Assessment Patient confirmed: Yes Med/dose confirmed: Yes Missed doses: No Estimated days supply on hand: 0 Next cycle/dose due: 09/05/23 Copay amount: 0 Payment confirmed: Yes Delivery method: FedEx Signature required: Waived on patient request Delivery address: [address] [place] [address] Delivery date: 08/29/23 Questions or concerns for the pharmacist?: No Did you have any side effects believed to be related to this medication, that resulted in hospitalization?: No Current Outpatient Medications on File Prior to Visit Medication Sig risankizumab-rzaa (SKYRIZI) 360 mg/2.4 mL (150 mg/mL) wearable injector Inject 360mg (1 device) subcutaneously every 8 weeks. medroxyPROGESTERone (DEPO-PROVERA) 150 mg/mL Inject 1 mL intramuscularly every 12 weeks. risankizumab-rzaa (SKYRIZI SUBCUTANEOUS) Inject subcutaneously. acetaminophen (TYLENOL) 325 mg tablet Take 2 tablets by mouth every 6 hours as needed (for pain.). ergocalciferol 50,000 unit capsule (VITAMIN D2, DRISDOL) Take 1 capsule by mouth one time a week. (Patient not taking: Reported on 04/24/2023) venlafaxine ER (EFFEXOR XR) 75 mg 24 hr capsule Take 1 capsule by mouth once daily. Current Facility-Administered Medications on File Prior to Visit Medication medroxyPROGESTERone 150 mg injection (DEPO-PROVERA) [facility] Visit Assessment - Inflammatory Conditions: Assessment to use: Refill Vaccination Assessment: Date of influenza vaccination reminder: 03/13/2023 Date of most recent vaccination assessment: 03/13/2023 Treatment Plan Information: Treatment Plan Information: Skyrizi OBI 360mg/2.4mL Inject 360mg subcutaneoulsy every 8 weeks. K50.819 Crohn's Disease of both small and large intestine with complication IV doses given: 12/26/22 01/23/23 02/21/23 Estimated Treatment Duration: Until loss of efficacy and/or no longer tolerated. Refill Assessment: Concurrent med therapy and DMARD screening: Yes Assessment of injection issues: Yes Screening for infection: Yes Adverse reactions and mitigation: Yes COPD monitoring (Orencia): N/A Assessment of efficacy: Yes Jazmin Baez CPhT [facility] [phone] documented in this encounter [facility] 08-23-2023 Note HNO ID: [id number] Author: JOSELINE KEYS RPh Service: ? Author Type: ? Type: Progress Notes Filed: 08/23/2023 13:35 Note Text: [facility] Refill Assessment Medication(s): Skyrizi OBI Patient's current medication list and adherence status to current therapy were reviewed by Specialty Pharmacy clinical pharmacist to identify any new drug interactions or non-compliance to therapy. Therapy continues to be appropriate for disease, patient response, and medical condition. Verification of therapeutic benefit and effectiveness with current therapy was completed. Adverse events, barriers in adherence, and side effects were assessed and addressed if applicable. Will proceed with refill with no changes in therapy - patient progressing towards achieving therapeutic goals based on medication-specific laboratory parameters, disease state markers and outcomes. Joseline Keys PharmD Clinical Pharmacist, [employer] [facility] ; Pool: [facility] Pool #: [id number] Operational Risk Manager Assessment Patient confirmed: Yes Med/dose confirmed: Yes Missed doses: No Estimated days supply on hand: 0 Next cycle/dose due: 09/05/23 Copay amount: 0 Payment confirmed: Yes Delivery method: FedEx Signature required: Waived on patient request Delivery address: [address] [place] [address] Delivery date: 08/29/23 Questions or concerns for the pharmacist?: No Did you have any side effects believed to be related to this medication, that resulted in hospitalization?: No Current Outpatient Medications on File Prior to Visit Medication Sig risankizumab-rzaa (SKYRIZI) 360 mg/2.4 mL (150 mg/mL) wearable injector Inject 360mg (1 device) subcutaneously every 8 weeks. medroxyPROGESTERone (DEPO-PROVERA) 150 mg/mL Inject 1 mL intramuscularly every 12 weeks. risankizumab-rzaa (SKYRIZI SUBCUTANEOUS) Inject subcutaneously. acetaminophen (TYLENOL) 325 mg tablet Take 2 tablets by mouth every 6 hours as needed (for pain.). ergocalciferol 50,000 unit capsule (VITAMIN D2, DRISDOL) Take 1 capsule by mouth one time a week. (Patient not taking: Reported on 04/24/2023) venlafaxine ER (EFFEXOR XR) 75 mg 24 hr capsule Take 1 capsule by mouth once daily. Current Facility-Administered Medications on File Prior to Visit Medication medroxyPROGESTERone 150 mg injection (DEPO-PROVERA) [facility] Visit Assessment - Inflammatory Conditions: Assessment to use: Refill Vaccination Assessment: Date of influenza vaccination reminder: 03/13/2023 Date of most recent vaccination assessment: 03/13/2023 Treatment Plan Information: Treatment Plan Information: Skyrizi OBI 360mg/2.4mL Inject 360mg subcutaneoulsy every 8 weeks. K50.819 Crohn's Disease of both small and large intestine with complication IV doses given: 12/26/22 01/23/23 02/21/23 Estimated Treatment Duration: Until loss of efficacy and/or no longer tolerated. Refill Assessment: Concurrent med therapy and DMARD screening: Yes Assessment of injection issues: Yes Screening for infection: Yes Adverse reactions and mitigation: Yes COPD monitoring (Orencia): N/A Assessment of efficacy: Yes Jazmin Baez CPhT [facility] [phone] [facility] 07-25-2023 Note HNO ID: [id number] Author: NELLY NOWAK RN Service: ? Author Type: Registered Nurse Type: Progress Notes Filed: 07/25/2023 09:33 Note Text: Patient identified by name and date of . Aly Solorio is here for a Depo Provera injection. Patient brought medication. Date last injected: 04/26/23 Depo-Provera, 150 mg, administered IM left upper quadrant gluteus, Lot # [id number], expiration date 04/27/27. Depo-Provera was given without incident. Date of last menses: Patient's last menstrual period was 04/04/2023 (approximate). Irregular bleeding - No Menses ceased - Yes STD prevention discussed: Yes Patient instructed to return to clinic on 12 weeks. [email or web address] ption/Depo-Provera%20dosing%20cal endar.pdf Provider Dr. East was present in office at time of injection. Nelly Nowak RN [facility] 07-25-2023 History of Present illness Narrative Patient identified by name and date of . Aly Solorio is here for a Depo Provera injection. Patient brought medication. Date last injected: 04/26/23 Depo-Provera, 150 mg, administered IM left upper quadrant gluteus, Lot # [id number], expiration date 04/27/27. Depo-Provera was given without incident. Date of last menses: Patient's last menstrual period was 04/04/2023 (approximate). Irregular bleeding - No Menses ceased - Yes STD prevention discussed: Yes Patient instructed to return to clinic on 12 weeks. [email or web address] ption/Depo-Provera%20dosing%20cal endar.pdf Provider Dr. East was present in office at time of injection. Nelly Nowak RN documented in this encounter [facility] 06-28-2023 History of Present illness Narrative No Show documented in this encounter [facility] 06-27-2023 Instructions Rakel Love APRN.CNP - 06/27/2023 7:55 PM EDT Weight Management: You have taken the initiative to become a healthier version of yourself and to decrease the risks that come with the diagnosis of obesity or being overweight. We are happy to help you along this journey but know this is a lifetime commitment to yourself. Losing just 3-10 % of your body weight can decrease your risks of many other serious diseases like diabetes, heart disease, osteoarthritis, hypertension, cancer and so many others. During this time you will have triumphs, setbacks and plateaus- your body will fight against you but we are here to give you the tools and the resources to continue to reach your goals. We recommend during this time that you track your weight daily or at least five times per week as well as tracking your nutrition. You may track your activity but do not use hitting your fitness goals as a reward system as this can derail your success. We recommend weekly physical activity of 150-200 min/week-although physical exercise can help with maintaining weight loss it adds only a little benefit for long term care phlebotomist weight loss success. However, exercise can have many other benefits including improving mental health and cardiovascular health. Do not feel overwhelmed- we will discuss this more at your visits. Our time will be limited with each visit but we will try to touch on factors that are important to you and to your overall goals. We will try to set a goal at the end of each visit and then decide on what we want to accomplish with your upcoming visits. On your After Visit Summary (AVS), we will provide you with information that may be useful during this journey so please remember to read the information given. Check your AVS a few days after your appointment because we may have added more information specifically for you. Remember that if you are placed on medications, they are tools that can help you succeed but you must put in the work. Your nutrition will be the main factor. There are medications that work well for some and not for others- so it may take time to find the right combination for your body's needs. Please remember that factors such as other health co-morbidities one might have, as well as insurance coverage, will play a factor in determining which medications you can take. Most of the newer medications that are all the craze ,injectables, may not be covered or will only be covered if you fail months of oral medications- so please be patient with the process. It would be beneficial for you to determine what your insurance covers as far as Anti-Obesity Medications (AOMs), Nutritional Counseling, behavioral intervention and weight loss surgery. Please call your health insurance prior to your first appointment and write down coverage for each of those therapies. Most importantly, remember that ultimately our goal is to help you get to a healthier weight which will decrease your overall health risks. We will work together as a team and try to reach your personalized goals as well. We appreciate that you have entrusted us with your health and know that we are committed to this process with you. Sincerely, Faina Price MD, RAUL KOWALSKI & Rakel Love, [place] Obesity Obesity is a disease that affects nearly one-third of the adult [place] population (approximately 60 million). The number of overweight and obese Americans has continued to increase since 1959, a trend that is not slowing down. Today, 64.5 percent of adult Americans (about 127 million) are categorized as being overweight or obese. Each year, obesity causes at least 300,000 excess deaths in the [place] and healthcare costs of [place] adults with obesity amount to approximately $100 billion. (AOA) Obesity is a complex, multi-factorial chronic disease involving: Environmental (social and cultural) The tendency toward obesity is a result of our environment: lack of physical activity along with high-calorie, low-cost foods. Home, work, school, and even the community can inhibit a healthy lifestyle. Genetic (Hereditary plays a large role in determining how susceptible people are to overweight and obesity). Genes also influence how the body skelton calories for energy and stores fat. Physiologic, metabolic, behavioral (eating too many calories while not getting enough exercise) and psychological components. It is the second leading cause of preventable in the [place] Behavioral changes brought on by economic development, modernization and urbanization have been linked to the rise in global obesity. Calculating BMI Body Mass Index (BMI) is a measurement tool used to determine excess body weight. Overweight is defined as a BMI of 25 or more, obesity is 30 or more, and severe obesity is 40 or more. You can visit www.nhlbi.nih.gov to estimate your BMI. Obesity Related Health Conditions The morbidity and mortality risk from being overweight is proportional to its degree. Individuals with morbid obesity, therefore, have the highest risk for developing numerous illnesses that often reduce mobility and quality of life due to their excess weight. In particular, type 2 diabetes, gallbladder disease and osteoarthritis have been found to increase concurrently with higher BMI. Premature , a 20-year shorter life span, has also been found in individuals with morbid obesity. All of the systems that make the body function are affected by morbid obesity. Type 2 diabetes Gallbladder disease and gallstones Liver disease Osteoarthritis, a disease in which the joints deteriorate. This is possibly the result of excess weight on the joints. Gout, another disease affecting the joints Pulmonary (breathing) problems, including sleep apnea in which a person can stop breathing for a short time during sleep Reproductive problems in women, including menstrual irregularities and infertility Gastroesophageal reflux/heartburn Hypertension Heart Disease Depression Psychological disorders/social impairments Urinary Stress Incontinence Obesity is also linked to higher rates of certain types of cancer. Obese men are more likely than non-obese men to from cancer of the colon, rectum, or prostate. Obese women are more likely than non-obese women to from cancer of the gallbladder, breast, uterus, cervix, or ovaries https://my.[facility].org/he alth/diseases/27411-nfqupf-bclpny hbay-fqcirnh-gesdxugps Nutrition - Eat primarily whole foods. Limit carbs, especially processed carbs. - Do not drink your calories - 30 grams of protein for breakfast decreases your hunger during the day by up to 40 % Premier Protein or generic 30 gm protein 1 gm sugar - Walk for 15 minutes immediately a meal. documented in this encounter [facility] 05-03-2023 Miscellaneous Notes Patient needs refill of Skyrizi onbody injector Date of Aly Solorio's last Gastroenterology office visit: 10/17/2022 Next appointment date: not yet scheduled Last labs: 10/17/2022 Last TB test: TB Result Date Value Ref Range Status 08/24/2022 Negative Final Requested Prescriptions Pending Prescriptions Disp Refills risankizumab-rzaa (SKYRIZI) 360 mg/2.4 mL (150 mg/mL) wearable injector 7.2 mL 0 Sig: Inject 360mg (1 device) subcutaneously every 8 weeks. Patient prefers: [facility] Max Vora, PharmD Clinical Pharmacist [facility] Pool: [facility] Pool #: [id number] documented in this encounter [facility] 04-26-2023 Instructions Henrietta Wheat RN - 04/26/2023 9:59 AM EST DEPO-PROVERA control is a way for men and women to prevent . There are many different methods of control; some types also protect against sexually transmitted diseases. Depo-Provera is a control method for women. It is made up of a hormone similar to progesterone and is given as a shot into the woman's arm or buttocks. Each shot provides protection against for up to 14 weeks, but the shot must be received once every 3 months. Depo-Provera does not protect against sexually transmitted diseases. Where can I get Depo-Provera? You must receive the shot from a doctor. The shot is usually given within five days of the beginning of your menstrual period. How is Depo-Provera used? Once the shot has been given, no additional steps are needed to prevent . With Depo-Provera, you must receive another shot once every three months to remain fully protected. How soon does it work? Protection begins immediately after the first shot if given during a menstrual period. How effective is Depo-Provera? Depo-Provera is 99% effective in preventing . Can any woman use Depo-Provera? Most women can use Depo-Provera. However, it is not recommended for women who have: Unexplained vaginal bleeding Liver disease Breast cancer Blood clots Are there side effects associated with Depo-Provera? Depo-Provera can cause a number of side effects, including: Irregular menstrual periods, or no periods at all Headaches Nervousness Depression Dizziness Acne Changes in appetite Weight gain Excessive growth of facial and body hair Hair loss You should discuss the potential side effects of Depo-Provera with your doctor. Most of the side effects are not common. Change in the menstrual cycle is the most common side effect. You may experience irregular bleeding or spotting. After a year of use, about 50% of women will stop getting their periods. Their periods usually return when they discontinue the shots. Can I become after I stop using Depo-Provera? With Depo-Provera, you could become as soon as 12 to 14 weeks after your last shot. It may take some women up to a year or two to conceive after they stop using this type of control. Does Depo-Provera protect against sexually transmitted diseases? No. To help protect yourself from STDs, use a male condom each time you and your partner have sex. What are the advantages of using Depo-Provera? You don't have to remember to take it every day or use it before sex. It provides long-term protection as long as you get the shot every three months. It doesn't interfere with sexual activity. It's over 99% effective. It's less expensive than the Pill. What are the disadvantages of using Depo-Provera? It can cause unwanted side effects. It does not provide protection against sexually transmitted diseases. It can cause irregular menstrual periods. You need to stop taking Depo-Provera several months ahead of time if you plan to become . Regular doctor visits can be inconvenient. Copyright 6467-0508 [facility]. All rights reserved This information is provided by the [facility] and is not intended to replace the medical advice of your doctor or health care provider. Please consult your health care provider for advice about a specific medical condition. For additional written health information, please contact the Health Information Center at the [facility] or toll-free extension [phone]. This document was last reviewed on: 2004 documented in this encounter [facility] 04-26-2023 History of Present illness Narrative Patient identified by name and date of . Aly Solorio is here for a Depo Provera injection. Patient brought medication. Date last injected: first injection - negative test. Depo-Provera, 150 mg, administered IM right upper quadrant gluteus, Lot # [id number], expiration date 05/27/2026. Depo-Provera was given without incident. Date of last menses: Patient's last menstrual period was 04/04/2023 (approximate). Patient instructed to return to clinic on 12 weeks +/- 5 days. [email or web address] [email or web address]/Depo-Provera%20dosing%20cal endar.pdf Provider Nitza Rader MD was present in office at time of injection. Henrietta Wheat, RN documented in this encounter [facility] 04-17-2023 Instructions Sydni Justin APRN.AR - 04/17/2023 9:41 AM EST Tylenol Medrol dose pack Rest, ice, heat, stretches Follow up with PCP documented in this encounter [facility] 04-17-2023 History of Present illness Narrative Images from the original note were not included. Subjective The history is provided by the patient. No english language learner teacher was used. HPI Aly Solorio is a 32 year old female who presents today for CC of pain in upper shoulder into chest. She was moving a lot of furniture over the past week and is still having discomfort. She has used tylenol without relief. Unable to take nsaids BP 128/82 Pulse 73 Temp 36.7 C (98.1 F) (Tympanic) Resp 18 Wt 78.9 kg (174 lb) LMP 12/02/2022 (Approximate) SpO2 100% BMI 35.14 kg/m Social History Tobacco Use Smoking status: Former Types: Cigarettes Quit date: 2019 Years since quittin.1 Smokeless tobacco: Never Vaping Use Vaping Use: current everyday user Substances: Nicotine Devices: [employer] Center[employer] tank Substance Use Topics Alcohol use: Yes Comment: occasional Drug use: Never PAST MEDICAL HISTORY Diagnosis Date ASCUS with positive high risk HPV cervical 05/11/2018 Colopscopy benign Crohn disease (HCC) 2000 Small bowel obstruction (HCC) 02/06/2022 I have confirmed and edited as necessary, the [place] Review of Systems Constitutional: Negative for chills and fever. Musculoskeletal: Positive for myalgias. Negative for joint pain. Skin: Negative for itching and rash. All other systems reviewed and are negative. Objective Physical Exam Vitals and nursing note reviewed. Cardiovascular: Pulses: Radial pulses are 2+ on the right side and 2+ on the left side. Pulmonary: Effort: Pulmonary effort is normal. Musculoskeletal: Right upper arm: Tenderness (marked area along muscle) present. No swelling, edema, deformity, lacerations or bony tenderness. Left upper arm: Normal. Arms: Skin: General: Skin is warm and dry. Neurological: Mental Status: She is alert and oriented to person, place, and time. Sensory: Sensation is intact. Psychiatric: Mood and Affect: Affect normal. ASSESSMENT/PLAN: 1. Muscle strain - ICD9: 848.9, ICD10: T14.8XXA Tylenol Medrol dose pack Rest, ice, heat, stretches Follow up with PCP - METHYLPREDNISOLONE 4 MG TABLETS IN A DOSE PACK Diagnosis and treatment plan were discussed and questions were answered to the patient's satisfaction. Pt acknowledged understanding of concepts and follow up plan. Specific signs and symptoms that would indicate the need for higher level of care were discussed in detail warranting prompt ER evaluation. Sydni Justin APRN.PAINTER AIRCRAFT documented in this encounter [facility] 12-26-2022 History of Present illness Narrative [facility] received prescription(s) for Skyrizi from Karla Noriega PA-C's office. Benefits investigation was conducted, indicating that a prior authorization is required by patient's insurance plan with [employer]. Encounter will be updated once prior authorization has been submitted by [facility]. Jazmin Baez CPhT [facility] [phone] documented in this encounter [facility] 12-15-2022 History of Present illness Narrative Aly is a 32 year old who presents for an annual gynecologic exam with complaints, fatigue and inability to lose weight . Has been exercising and dieting for years. Menses: regular, cycling every 28-30 days, 5 days of flow Contraception: none, not sexually active HPV vaccine: Yes Last Pap: 08/28/2020 normal HPV: 2019 HPV positive History of abnormal pap: Yes 2019 Colposcopy benign - Pap ASCUS HPV positive Last mammogram: never Sexually active: none History of STDS: HPV Patient concerns for STD exposure: No. Documentation from previous visit of 12/15/2021 was copied and pasted, documentation has been reviewed and edited as necessary for today's visit OB History T1 L2 SAB0 IAB0 Ectopic0 Multiple0 Live Births2 Comment: First baby was adopted by another family. Method Consultant History LMP: 12/02/2022 (Approximate), Having periods Age at Menarche: Age at First : Age at Menopause: Method Consultant History Comments: Sexual Activity: Not Currently; Male Contraception: No contraception data on record PAST MEDICAL HISTORY Diagnosis Date ASCUS with positive high risk HPV cervical 05/11/2018 Colopscopy benign Crohn disease (HCC) 2000 Small bowel obstruction (HCC) 02/06/2022 PAST SURGICAL HISTORY Procedure Laterality Date SECTION HX 03/29/2018 COLONOSCOPY STOMA W/ENDOSCOPIC MUCOSAL RESCJ 2005 small and large resection PAST SURGICAL HISTORY OF 09/16/2022 Laparoscopic redo ileocolic resection with Kono-S ileocolic anastomosis FAMILY HISTORY Adopted: Yes Problem Relation Age of Onset Cancer Father Lung SOCIAL HISTORY Social History Tobacco Use Smoking status: Former Types: Cigarettes Quit date: 2019 Years since quittin.8 Smokeless tobacco: Never Vaping Use Vaping Use: current everyday user Substances: Nicotine Devices: Refillable tank Substance Use Topics Alcohol use: Yes Comment: occasional Drug use: Never REVIEW OF SYSTEMS Abdomen: No abdominal pain, nausea, vomiting, diarrhea, or constipation. No bloating, early satiety, indigestion, or increased flatulence. Bladder: No dysuria, gross hematuria, urinary frequency, urinary urgency, or incontinence. Breast: No breast lumps, nipple d/c, overlying skin changes, redness or skin retraction. Allergies and current medication updated:Yes EXAM: BP 108/62 Ht 4' 11 (1.50m) Wt 170 lb (77.1kg) LMP 12/02/2022 BMI 34.32 kg/(m^2). GENERAL: pleasant, female in no apparent distress HEENT: Normocephalic, atraumatic, mucus membranes moist, and no lesions NECK: Supple, full range of motion, no adenopathy, and thyroid normal DERMATOLOGY: Normal, without lesions, non-icteric, and non-hirsute BREAST: soft, non-tender, symmetric, no dominant mass, normal nipple-areolar complex, no lymphadenopathy, and no nipple discharge CHEST: Normal inspiratory effort ABDOMEN: soft, non-tender, and no masses PELVIC: external genitalia normal, normal Bartholin's glands, urethra, Loomis's glands, no vulvar lesions, no cervical lesions, good vaginal support, physiologic discharge present, normal appearing perineal body and perianal region BIMANUAL: uterus normal size, shape and consistency, no adnexal masses, and non-tender RECTOVAGINAL: deferred. NEURO: alert and oriented x3,exam grossly non-focal EXTREMITIES: normal ASSESSMENT/PLAN: 1) Health maintenance: Pap/HPV up to date. Nutrition, exercise and routine health maintenance exams reviewed. Smoking cessation: Smoking cessation encouraged and resources provided. Benefits of smoking cessation reviewed. Patient encouraged to avoid smoking. 2) Contraception: abstience. Contraceptive options reviewed and information provided. 3) STD screening: Declined STD check. 4) Follow up one year or sooner as needed 2. Malaise and fatigue - ICD9: 780.79, ICD10: R53.81, R53.83 - Reports inability to lose weight with diet and exercise as well - Advised to start walking for 15 minutes after meals - TSH BLD - T4 FREE/FREE THYROX - HGB A1C 3. Class 1 obesity with body mass index (BMI) of 34.0 to 34.9 in adult, unspecified obesity type, unspecified whether serious comorbidity present - ICD9: 278.00, V85.34, ICD10: E66.9, Z68.34 BRI Meyer APRN.[employer] documented in this encounter [facility] 12-14-2022 Miscellaneous Notes Patient scheduled. start email sent LM for patient to return call. When patient calls, please schedule START QMO SKYRIZI./AUTH EXP 03/07/23* (1 HR) Auth approved. Okay to schedule. Khushbu Sutton LPN Patient called to schedule Skyrizi. Dr. Noriega referring. Please review and advise. documented in this encounter [facility] 12-12-2022 History of Present illness Narrative Patient presents for Hepatitis B vaccine. Denies any problems at this time. Tolerated injection well. Mary Ibrahim LPN documented in this encounter [facility] 11-25-2022 History of Present illness Narrative Images from the original note were not included. This note was created using Gameletriter. Subjective Aly Solorio is a 32 year old female. HPI Presents with a bump under her skin near the left third digit over the past 3 days. She states its mildly painful. No injury or trauma to her hand. She has not had this previously. No fever or chills. No redness. Review of Systems Musculoskeletal: Bump on left hand All other systems reviewed and are negative. PAST MEDICAL HISTORY Diagnosis Date ASCUS with positive high risk HPV cervical 05/11/2018 Colopscopy benign Crohn disease (HCC) 2000 Small bowel obstruction (HCC) 02/06/2022 Current Outpatient Medications Medication Sig Dispense Refill acetaminophen (TYLENOL) 325 mg tablet Take 2 tablets by mouth every 6 hours as needed (for pain.). ergocalciferol 50,000 unit capsule (VITAMIN D2, DRISDOL) Take 1 capsule by mouth one time a week. 12 capsule 0 venlafaxine ER (EFFEXOR XR) 75 mg 24 hr capsule Take 1 capsule by mouth once daily. 90 capsule 3 No current facility-administered medications for this visit. PAST SURGICAL HISTORY Procedure Laterality Date SECTION HX 03/29/2018 COLONOSCOPY STOMA W/ENDOSCOPIC MUCOSAL RESCJ 2005 small and large resection PAST SURGICAL HISTORY OF 09/16/2022 Laparoscopic redo ileocolic resection with Kono-S ileocolic anastomosis FAMILY HISTORY Adopted: Yes Problem Relation Age of Onset Cancer Father Lung Social History Tobacco Use Smoking status: Former Types: Cigarettes Quit date: 2019 Years since quittin.7 Smokeless tobacco: Never Vaping Use Vaping Use: current everyday user Substances: Nicotine Devices: Kindling Substance Use Topics Alcohol use: Not Currently Drug use: Never Objective BP 120/66 Pulse 84 Temp 37 C (98.6 F) Resp 16 Wt 75.5 kg (166 lb 6.4 oz) LMP 11/02/2022 (Approximate) SpO2 97% BMI 33.61 kg/m Physical Exam Vitals reviewed. Constitutional: Appearance: Normal appearance. HENT: Head: Normocephalic and atraumatic. Musculoskeletal: Hands: Comments: Patient has small 1 cm cystic lesion at the MCP on the palmar side of the left hand third digit. Likely ganglion cyst. No erythema of the skin. No sign of secondary infection. Skin: General: Skin is warm and dry. Neurological: Mental Status: She is alert. Assessment and Plan ASSESSMENT/PLAN: 1. Ganglion cyst - ICD9: 727.43, ICD10: M67.40 Exam findings likely consistent with ganglion cyst. We will have her follow-up with orthopedics if continuing to bother her. Tylenol, ice. Patient agreeable. - CONSULT TO ORTHOPAEDICS Winnie Richards PA-C documented in this encounter [facility] 11-02-2022 History of Present illness Narrative COLORECTAL SURGERY Post-Op Visit November 02, 2022 Aly Solorio returns for a post-operative visit after undergoing Laparoscopic redo ileocolic resection with Kono-S ileocolic anastomosis, on 09/16/2022. Her post-operative period was uncomplicated. She is tolerating diet with an improving appetite, stable weight, and energy level is improving. She has no specific complaints, except more frequent bowel movements, initially 8-10 times a day in the first period post-op, now more like 3-4 times a day. No blood or mucus. Recently seen by GI with plan to consider switching to Skyrizi. Current pain medications: Tylenol Current bowel related medications: None Bowel movement frequency: multiple a day Current Outpatient Medications Medication Sig Dispense Refill potassium chloride (K-TAB) 10 mEq tablet Take 1 tablet by mouth twice daily. 60 tablet 0 acetaminophen (TYLENOL) 325 mg tablet Take 2 tablets by mouth every 6 hours as needed (for pain.). ergocalciferol 50,000 unit capsule (VITAMIN D2, DRISDOL) Take 1 capsule by mouth one time a week. 12 capsule 0 venlafaxine ER (EFFEXOR XR) 75 mg 24 hr capsule Take 1 capsule by mouth once daily. 90 capsule 3 No current facility-administered medications for this visit. ALLERGIES No Known Allergies Ht 149.9 cm (4' 11) Wt 75.5 kg (166 lb 6.4 oz) LMP 11/02/2022 (Approximate) BMI 33.61 kg/m Abdominal examination: soft, non-distended, and non-tender without masses or hernias. Wound is well healed. Anorectal: not performed Mortgage Lender present: Yes Surgical path- FINAL DIAGNOSIS A. Terminal ileum and ileocolic anastomosis, resection: - Pathologic features of active Crohn enteritis with ulceration, a deep fissuring ulcer with an associated mural abscess and underlying adhesions, a stricture, pyloric gland metaplasia, and rare non-necrotizing granuloma (see comment). - Intact enterocolonic anastomosis. - Negative for dysplasia. - Five lymph nodes (see comment). Assessment Assessment: Aly Solorio is a 32 year old female who is 6 weeks status post redo laparoscopic ileocolic resection with Kono S anastomosis for Crohn's stricture. Recovering as expected. Plan Plan: - Will discuss with Karal Noriega and Dr Morton the timing of her follow up colonoscopy with respect to medication change. - OK to liberalize diet and activity with no specific restrictions. - Return to clinic as needed Demetrius France MD documented in this encounter [facility] 10-19-2022 Miscellaneous Notes I was going to message you her glucose is fine I knew she was not fasting. I dont like that her liver numbers are up and want to recheck in 2 weeks. Karla Noriega PA-C Called and spoke to pt and advised her of Cash Noriega's above message. Explained to pt labs orders are in the system and in 2 weeks please go back and have them completed. Pended orders and sent to Cash Noriega PA-C for review and signature. Pt had no questions at this time. Janet Vera RN October 19, 2022 3:22 PM documented in this encounter [facility] 10-17-2022 Instructions Karla Noriega PA-C - 10/17/2022 5:15 PM EDT Labs and fecal nubia as a baseline Plan to start new therapy in the near future Follow up after 2 infusions documented in this encounter [facility] 10-17-2022 History of Present illness Narrative Follow Up Visit SUBJECTIVE 32 year old female with Crohn's disease here for follow-up. Last seen 08/17/2022. Changes and test results since last visit: Currently feeling well. Still with frequency low energy. Still going after meals 8-10 still 1 episode of nocturnal defecation. Urgency is improving. No incontinence. No blood. Tolerating diet weight stable appetite is still mildly decreased no bloating no nausea No EIMs still with energy Surgery 09/16/2022: Laparoscopic redo ileocolic resection with Kono-S ileocolic anastomosis. CBC: WBC (k/uL) Date Value 09/17/2022 8.72 Hematocrit (%) Date Value 09/17/2022 30.5 (L) MCV (fL) Date Value 09/17/2022 87.1 Platelet Count (k/uL) Date Value 09/17/2022 193 Lymphocytes % (%) Date Value 09/17/2022 21.2 Hepatic Function Panel: Albumin (g/dL) Date Value 08/24/2022 3.8 (L) Bilirubin, Total (mg/dL) Date Value 08/24/2022 0.2 Alkaline Phosphatase (U/L) Date Value 08/24/2022 49 AST (U/L) Date Value 08/24/2022 19 ALT (U/L) Date Value 08/24/2022 20 Protein, Total (g/dL) Date Value 08/24/2022 6.4 Current Clinical Symptoms # of bowel movements daily: 7+ # of liquid stools daily: all Consistency: watery Bloody bowel movements: no Urgency: yes mild Abdominal pain: no Abdominal distention: no Nausea/vomiting: no Weight loss over last 3 months: no General well-being: very well Patient-Entered Data SIBDQ Scores 02/18/2022 08/15/2022 Bowel Score 4 4 Emotional Score 5.67 5 Systemic Score 5.5 4 Social Score 3.5 6 Total Score 4.7 4.7 PRO-2 Crohn's Score 02/18/2022 08/15/2022 09/10/2022 Crohn's Disease Score 43 Incomplete 39 PROMIS Global Health - (T-Scores - the mean of general population = 50. Five points is a clinically meaningful difference.) 02/18/2022 08/15/2022 Physical T-Score 44.9 44.9 Mental T-Score 48.3 45.8 PROMIS Global Health Scale 02/18/2022 08/15/2022 Physical Health Percentile 31 % 31 % Mental Health Percentile 43 % 34 % Current Outpatient Medications Medication Sig Dispense Refill acetaminophen (TYLENOL) 325 mg tablet Take 2 tablets by mouth every 6 hours as needed (for pain.). ergocalciferol 50,000 unit capsule (VITAMIN D2, DRISDOL) Take 1 capsule by mouth one time a week. 12 capsule 0 venlafaxine ER (EFFEXOR XR) 75 mg 24 hr capsule Take 1 capsule by mouth once daily. 90 capsule 3 oxyCODONE IR (ROXICODONE) 5 mg immediate release tablet Take 1 tablet by mouth every 6 hours as needed. (Patient not taking: Reported on 09/30/2022) 15 tablet 0 HUMIRA PEN 40 mg/0.8 mL INJECT 40 MG (0.8 ML) UNDER THE SKIN EVERY 2 WEEKS (CONTINUATION OF THERAPY) (Patient not taking: Reported on 09/30/2022) 2 Each 5 No current facility-administered medications for this visit. ALLERGIES No Known Allergies PHYSICAL EXAMINATION BP 126/68 Pulse 74 Ht 4' 11 (1.50m) Wt 164 lb (74.4kg) SpO2 99% LMP 08/30/2022 BMI 33.11 kg/(m^2). General Appearance: alert, oriented x 3, pleasant and in no acute distress Heart:regular rate and rhythm, no murmurs or gallops Abdomen: Not distended. Normal bowel sounds. Soft and non-tender. No masses or organomegaly. Surgical scars healing well Skin: no rashes or lesions Lymph:No cervical, axillary, supraclavicular, or inguinal adenopathy. Assessment IMPRESSION Ms. Solorio, is a 32 year old female with a history of Crohns disease diagnosed in 2000 and underwent a ileocolic resection in 2004. Was treated initially with Pentasa then Imuran and the after surgery was on IFX and AZA in the past as a child unclear why this was stopped. She has been treated with Adalimumab for the last several years. Recent endoscopy with i4 disease with stricture and on 09/16/2022 she underwent a laparoscopic redo ileocolic resection with Kono S anastomosis. She presents today as a routine office follow-up postoperatively. Feeling very well still with some frequency decreased energy going to the bathroom after meals with 8-10 episodes a day 1 episode of nocturnal defecation. Overall urgency is improving no incontinence no blood. Tolerating diet weight is stable appetite is still mildly decreased but improving denies bloating or nausea. I suspect that her frequency is likely due to to postsurgical anatomy discussed using bowel stoppers such as Imodium to see if this helps. For disease she is at relatively high risk for recurrence as she has already had a previous resection and has been on infliximab and adalimumab and disease has continued to progress. I therefore plan to start Skyrizi in the very near future. We will get labs and fecal Nubia as a baseline and then repeat after around 3 months. Would plan for colonoscopy at 6 to 12 months from starting Skyrizi depending on symptoms and lab results. Plan to follow-up with me after the first 2 infusions unless needed sooner. Physician Global Assessment of Disease Activity: normal PLAN Repeat labs and fecal nubia as baseline Plan to start skyrizi Follow up with me after 2 infusion I spent a total of 20 minutes on the date of the service which included preparing to see the patient, [id number] patient care, completing clinical documentation, obtaining and/or reviewing separately obtained history, performing a medically appropriate examination, counseling and educating the patient/family/caregiver, and ordering medications, tests, or procedures. Medical Decision Making: Problems: Low: Stable chronic illness Data: Unique source(s) for external note(s) reviewed: 2 Unique test result(s) reviewed: 2 Unique test(s) ordered: 1 Risk: High: Drug therapy requiring intensive monitoring Medical Decision Making Level: 4 - Moderate Karla Noriega PA-C October 17, 2022 4:39 PM documented in this encounter [facility] 09-14-2022 History and physical note Images from the original note were not included. Chief Complaint: preop- Crohns stricture History of Present Illness: Aly SOLORIO is a 32 year old year old female with a history of Crohns disease diagnosed in 2000 and underwent a ileocolic resection in 2004. Here to discuss surgery. She has been having bloating and occasional nausea, one to two bowel movements a day. She has stricturing disease that hasn't responded to Humira. PAST MEDICAL HISTORY PAST MEDICAL HISTORY Diagnosis Date ASCUS with positive high risk HPV cervical 05/11/2018 Colopscopy benign Crohn disease (HCC) 2000 Small bowel obstruction (HCC) 02/06/2022 PAST SURGICAL HISTORY PAST SURGICAL HISTORY Procedure Laterality Date SECTION HX 03/29/2018 COLONOSCOPY STOMA W/ENDOSCOPIC MUCOSAL RESCJ 2005 small and large resection CURRENT MEDICATIONS Current Outpatient Medications Medication Sig Dispense Refill ergocalciferol 50,000 unit capsule (VITAMIN D2, DRISDOL) Take 1 capsule by mouth one time a week. 12 capsule 0 neomycin 500 mg tablet Take 2 tablets by mouth at 9pm and take 2 tablets by mouth at 11pm the night before surgery. 4 tablet 0 metroNIDAZOLE (FLAGYL) 500 mg tablet Take 1 tablet by mouth at 9pm and take 1 tablet by mouth at 11pm the night before surgery. 2 tablet 0 HUMIRA PEN 40 mg/0.8 mL INJECT 40 MG (0.8 ML) UNDER THE SKIN EVERY 2 WEEKS (CONTINUATION OF THERAPY) 2 Each 5 venlafaxine ER (EFFEXOR XR) 75 mg 24 hr capsule Take 1 capsule by mouth once daily. 90 capsule 3 nicotine (NICODERM) 21 mg/24 hr Apply 1 Patch as directed every 24 hours. 30 Patch 0 nicotine (NICODERM) 14 mg/24 hr Apply 1 Patch as directed every 24 hours. No smoking with patch. 30 Patch 0 nicotine (NICODERM) 7 mg/24 hr Apply 1 Patch as directed every 24 hours. 30 Patch 0 venlafaxine ER (EFFEXOR XR) 75 mg 24 hr capsule Take 1 capsule by mouth once daily. 30 capsule 0 No current facility-administered medications for this visit. ALLERGIES ALLERGIES No Known Allergies Review of Systems / PACC screen: Do you have difficulty climbing a full flight of stairs without feeling short of breath? no Do you require oxygen for your breathing or have your gone to an emergency department because of breathing problems? no Are you on dialysis or have you been told that your kidneys do not work well as they should? no Do have an implanted cardiac device (pacemaker, defibrillator etc.) that has not been checked in the last 6 months? no Have you had an organ transplant? no Have you been told that you had excessive bleeding during surgical procedures or do you take blood thinning medications other than aspirin? no Have you ever had a heart attack, heart stents/surgery, valve problems, or other heart problems? no Have you had a stroke, seizures, or unexplained loss of consciousness? no Do you have a neurologic condition like Parkinson's disease or multiple sclerosis? no Have you or a blood relative had a life-threatening reaction to anesthesia? no Do you have cirrhosis of the liver or other liver disease? no Have you had a blood clot within the past year? no Do you take insulin or other injections for diabetes? no Do you have sleep apnea or have you been told you may have sleep apnea? no Do you have other implanted devices (deep brain stimulator, spinal cord stimulator, etc.)? no Physical Exam: LMP (LMP Unknown) General Appearance: Well appearing, alert, in no acute distress, well-hydrated, well nourished. Lungs: Lungs clear to auscultation. No wheezing, rhonchi, rales. Heart: RRR without murmur, gallop, or rubs. No ectopy Edema: no Abdomen: Normal abdominal exam, Abdomen soft, non-tender. Bowel sounds normal. No masses, organomegaly Anorectal: Perianal skin is intact. No erythema, induration or excoriation. No fissure, fistula or external hemorrhoids. CTE 08/24/2022 IMPRESSION: Active inflammatory changes with stricturing and penetrating disease involving the distal ileum, overall similar in distribution compared to the prior CT 02/04/2022, but with interval improvement in the degree of inflammatory changes. Proctocolitis, also improved compared to prior CT. Colonoscopy 08/11/2022 Impression: - Patent [id number] ileo-colonic anastomosis, characterized by healthy appearing mucosa. - Crohn's disease with ileitis 15 cm proximal to the anastomosis. Biopsied. - Stricture in the scout-terminal ileum. Dilated. - Stricture in the scout-terminal ileum. Biopsied. - Simple Endoscopic Score for Crohn's Disease: 6, mucosal inflammatory changes secondary to Crohn's disease with ileitis. Pathology FINAL DIAGNOSIS A. Ileum, biopsy: - Chronic active enteritis with erosion. - Negative for granulomatous inflammation and dysplasia. B. Ileum, biopsy: - Small intestinal mucosa with no diagnostic abnormality. - Negative for active and granulomatous inflammation. - Negative for dysplasia. Assessment Medical Decision Making: Assessment & Diagnosis: Aly SOLORIO is a 32 year old female with Crohn's disease, prior ileocolic resection, and stricturing at her neoterminal ileum. We plan for redo ileocolic resection, will plan for a laparoscopic procedure, likely Kono-S anastomosis. We discussed possibility of needing a stoma but if tissue quality is good we should be able to avoid this as she is not on steroids, a non-smoker, and not having significant malnutrition. Treatment plan: As above will plan for laparoscopic, possible open, redo ileocolic resection. Plan will be for Kono-S anastomosis without a stoma but discussed with Aly that based on intra-operative findings that plan may need to be adjusted. Discussed all risks, benefits, alternatives to surgery and she'd like to proceed Will plan for oral antibiotic and mechanical bowel prep. Colorectal Surgery Risk of morbidity, mortality and/or complications of treatment plan: moderate documented in this encounter [facility] 09-14-2022 Miscellaneous Notes Received ER visit and EKG. Original sent to [facility] through [employer]. Alycia Terry LPN Fax request sent to [facility] requesting ER visit and EKG from this past week. Alycia Terry LPN documented in this encounter [facility] 09-12-2022 History of Present illness Narrative This note was created using Gameletriter. Subjective Aly Solorio is a 32 year old female. HPI Patient presents with sore throat, nasal congestion and ear pain over the past 4 days. No significant cough. No chest pain or shortness of breath. She denies a fever. Temp here 99.7, no ibuprofen or Tylenol taken today. No diarrhea or vomiting. Denies sick contacts. Review of Systems Constitutional: Negative. HENT: Positive for congestion, ear pain and sore throat. Respiratory: Negative for cough. Cardiovascular: Negative. Gastrointestinal: Negative. Genitourinary: Negative. Musculoskeletal: Negative. All other systems reviewed and are negative. PAST MEDICAL HISTORY Diagnosis Date ASCUS with positive high risk HPV cervical 05/11/2018 Colopscopy benign Crohn disease (HCC) 2000 Small bowel obstruction (HCC) 02/06/2022 Current Outpatient Medications Medication Sig Dispense Refill ergocalciferol 50,000 unit capsule (VITAMIN D2, DRISDOL) Take 1 capsule by mouth one time a week. 12 capsule 0 neomycin 500 mg tablet Take 2 tablets by mouth at 9pm and take 2 tablets by mouth at 11pm the night before surgery. 4 tablet 0 metroNIDAZOLE (FLAGYL) 500 mg tablet Take 1 tablet by mouth at 9pm and take 1 tablet by mouth at 11pm the night before surgery. 2 tablet 0 HUMIRA PEN 40 mg/0.8 mL INJECT 40 MG (0.8 ML) UNDER THE SKIN EVERY 2 WEEKS (CONTINUATION OF THERAPY) 2 Each 5 venlafaxine ER (EFFEXOR XR) 75 mg 24 hr capsule Take 1 capsule by mouth once daily. 90 capsule 3 amoxicillin (AMOXIL) 500 mg capsule Take 1 capsule by mouth twice daily for 10 days. 20 capsule 0 No current facility-administered medications for this visit. PAST SURGICAL HISTORY Procedure Laterality Date SECTION HX 03/29/2018 COLONOSCOPY STOMA W/ENDOSCOPIC MUCOSAL RESCJ 2005 small and large resection FAMILY HISTORY Adopted: Yes Problem Relation Age of Onset Cancer Father Lung Social History Tobacco Use Smoking status: Former Types: Cigarettes Quit date: 2018 Years since quittin.5 Smokeless tobacco: Never Vaping Use Vaping Use: current everyday user Substances: Nicotine Devices: Kindling Substance Use Topics Alcohol use: Not Currently Drug use: Never Objective BP 124/72 Pulse 92 Temp 37.6 C (99.7 F) Resp 16 Wt 79.8 kg (176 lb) LMP (LMP Unknown) SpO2 98% BMI 35.55 kg/m Physical Exam Vitals reviewed. Constitutional: Appearance: Normal appearance. HENT: Head: Normocephalic and atraumatic. Right Ear: Tympanic membrane, ear canal and external ear normal. Left Ear: Tympanic membrane, ear canal and external ear normal. Nose: Nose normal. Mouth/Throat: Mouth: Mucous membranes are moist. Pharynx: Pharyngeal swelling and posterior oropharyngeal erythema present. No oropharyngeal exudate or uvula swelling. Tonsils: No tonsillar exudate or tonsillar abscesses. 2+ on the right. 2+ on the left. Cardiovascular: Rate and Rhythm: Normal rate and regular rhythm. Heart sounds: Normal heart sounds. Pulmonary: Effort: Pulmonary effort is normal. Breath sounds: Normal breath sounds. Musculoskeletal: Cervical back: Neck supple. Lymphadenopathy: Cervical: Cervical adenopathy present. Skin: General: Skin is warm and dry. Neurological: General: No focal deficit present. Mental Status: She is alert. Assessment and Plan ASSESSMENT/PLAN: 1. Strep pharyngitis - ICD9: 034.0, ICD10: J02.0 - Alere Strep Test positive, no culture pending - Amoxicillin for 10 days. - Discussed supportive care treatment with fluids, rest and analgesia. - Contagious dz precautions discussed- including considered contagious until on antibiotics for 24 hours Patient is supposed to have a bowel resection in 4 days, recommend she call her surgeon to let them know she has strep throat. - The patient should follow up in 3-5 days if symptoms persist or worsen - STREP A MOLECULAR (POC) Winnie Richards PA-C documented in this encounter [facility] 09-12-2022 Miscellaneous Notes Returned pts call, she has strep throat, started treatment today. Does not want to cancel surgery but wanted us to be aware. Alvina Hobbs RN documented in this encounter [facility] 09-12-2022 Miscellaneous Notes The patient has pre-op questions and would like a call right away. Please call [phone] documented in this encounter [facility] 09-12-2022 History of Present illness Narrative Follow Up Visit SUBJECTIVE 32 year old female with Crohn's disease here for follow-up. Last seen 08/17/2022. Changes and test results since last visit: Continues to be on Adalimumab. Continues to feel bloated 1-2 BMs daily still feels blocked. Able to eat not feeling very hungry. Was on steroids but now finished has gained weight. Has gotten several upper respiratory infections. CBC: WBC (k/uL) Date Value 09/09/2022 14.21 (H) Hematocrit (%) Date Value 09/09/2022 37.2 MCV (fL) Date Value 09/09/2022 84.5 Platelet Count (k/uL) Date Value 09/09/2022 266 Lymphocytes % (%) Date Value 08/24/2022 36.5 Hepatic Function Panel: Albumin (g/dL) Date Value 08/24/2022 3.8 (L) Bilirubin, Total (mg/dL) Date Value 08/24/2022 0.2 Alkaline Phosphatase (U/L) Date Value 08/24/2022 49 AST (U/L) Date Value 08/24/2022 19 ALT (U/L) Date Value 08/24/2022 20 Protein, Total (g/dL) Date Value 08/24/2022 6.4 Current Clinical Symptoms # of bowel movements daily: About 2 a day # of liquid stools daily: 0 Consistency: loose, soft, smaller Bloody bowel movements: no Urgency: no Abdominal pain: no Abdominal distention: Bloating but can't seem to full up quite often Nausea/vomiting: no, acid reflux Weight loss over last 3 months: no General well-being: slightly below average Patient-Entered Data SIBDQ Scores 02/18/2022 08/15/2022 Bowel Score 4 4 Emotional Score 5.67 5 Systemic Score 5.5 4 Social Score 3.5 6 Total Score 4.7 4.7 PRO-2 Crohn's Score 02/18/2022 08/15/2022 09/10/2022 Crohn's Disease Score 43 Incomplete 39 PROMIS Global Health - (T-Scores - the mean of general population = 50. Five points is a clinically meaningful difference.) 02/18/2022 08/15/2022 Physical T-Score 44.9 44.9 Mental T-Score 48.3 45.8 PROMIS Global Health Scale 02/18/2022 08/15/2022 Physical Health Percentile 31 % 31 % Mental Health Percentile 43 % 34 % Current Outpatient Medications Medication Sig Dispense Refill ergocalciferol 50,000 unit capsule (VITAMIN D2, DRISDOL) Take 1 capsule by mouth one time a week. 12 capsule 0 neomycin 500 mg tablet Take 2 tablets by mouth at 9pm and take 2 tablets by mouth at 11pm the night before surgery. 4 tablet 0 metroNIDAZOLE (FLAGYL) 500 mg tablet Take 1 tablet by mouth at 9pm and take 1 tablet by mouth at 11pm the night before surgery. 2 tablet 0 HUMIRA PEN 40 mg/0.8 mL INJECT 40 MG (0.8 ML) UNDER THE SKIN EVERY 2 WEEKS (CONTINUATION OF THERAPY) 2 Each 5 venlafaxine ER (EFFEXOR XR) 75 mg 24 hr capsule Take 1 capsule by mouth once daily. 90 capsule 3 No current facility-administered medications for this visit. ALLERGIES No Known Allergies PHYSICAL EXAMINATION BP 135/73 Pulse 97 Temp (Src) 97.9 (Temporal) Resp 18 Ht 4' 11 (1.50m) Wt 175 lb (79.4kg) SpO2 98% BMI 35.33 kg/(m^2). General Appearance: alert, oriented x 3, pleasant and in no acute distress Heart:regular rate and rhythm, no murmurs or gallops Abdomen: Not distended. Normal bowel sounds. Soft and non-tender. No masses or organomegaly. Skin: no rashes or lesions Lymph:No cervical, axillary, supraclavicular, or inguinal adenopathy. Assessment IMPRESSION Ms. Solorio, is a 32 year old female with a history of Crohns disease diagnosed in 2000 and underwent a ileocolic resection in 2004. Was treated initially with Pentasa then Imuran and the after surgery was on IFX and AZA in the past as a child unclear why this was stopped. She has been treated with Adalimumab for the last several years. Recent endoscopy with i4 disease with stricture. She presents today as a routine follow-up. Overall continues to be bloated still having 1-2 bowel movements a day does not feel completely blocked. Able to eat and has actually been feeling hungry. She was recently on steroids for a few days after a question of obstruction but is now off. She has gained weight she does note that she has been getting upper respiratory infections while on Humira. I discussed plan for surgery later this week as scheduled and will likely need to start a new biologic likely either Stelara or Skyrizi after surgery. We will stop Humira at this time plan for follow-up 2 to 4 weeks after surgery at which point postop prophylaxis with a new medication will be initiated. Physician Global Assessment of Disease Activity: moderate disease PLAN Surgery as scheduled Will need to start new biologic after surgery likely Uste/Julia Follow up 2-4 weeks after surgery Stop humira I spent a total of 25 minutes on the date of the service which included preparing to see the patient, [id number] patient care, completing clinical documentation, obtaining and/or reviewing separately obtained history, performing a medically appropriate examination, counseling and educating the patient/family/caregiver, and ordering medications, tests, or procedures. Karla Noriega PA-C September 12, 2022 10:53 AM documented in this encounter [facility] 09-09-2022 Telephone encounter Note Would you like pt to complete a bowel prep prior to upcoming surgery 09/16/2022? And would you like her to continue the Humira prior to surgery or hold? [facility] 09-09-2022 Miscellaneous Notes Would you like pt to complete a bowel prep prior to upcoming surgery 09/16/2022? And would you like her to continue the Humira prior to surgery or hold? documented in this encounter [facility] 09-07-2022 Miscellaneous Notes Aly Solorio is having car trouble today and will not make her preop appointments. Asking if some of them could be virtually and/or some locally closer to home. [phone] documented in this encounter [facility] 09-02-2022 Miscellaneous Notes spoke to pt informed her we do not give surgery times, but I will speak to Dr France upon his return for an estimate. Thanked nurse for call. Alvina Hobbs RN documented in this encounter [facility] 08-29-2022 Miscellaneous Notes Patient called and stated she is vomiting at least twice a day, managing very little intake, bloated, with increasing right sided stomach pain and major fatigue Spoke to aCsh Noriega PA-C who stated to have pt come to [facility] ED today. Called pt back and gave her Cash Noriega's recommendation to come to the ED today. Pt verbalized understanding and stated she will make child life therapist arrangement and drive in to [facility] ED today. Janet Vera RN August 29, 2022 4:20 PM documented in this encounter [facility] 08-24-2022 History of Present illness Narrative Radiology Service Progress Note DATE OF SERVICE: August 24, 2022 TIME: 3:36 PM PATIENT IDENTITY VERIFICATION COMPLETED USING TWO (2) STANDARD IDENTIFIERS: Name and Date of confirmed by patient verbally. FALL SCREENING: Has the patient had 2 falls in the last year or 1 fall with injury or currently using an Ambulatory Assistive Device (Walker, Cane, Wheelchair, Crutches, etc.)? No PATIENT GENDER DATA: Female. status: : No status: NO. PATIENT RELEVANT IMPLANT DATA REVIEWED: Yes ALLERGIES: Reviewed and unchanged CONTRAST ALLERGY: NO. EXAM: CT -CONTRAST INDUCED NEPHROPATHY RISK FACTORS: Not applicable CREATININE: Creatinine Date Value Ref Range Status 02/10/2022 0.77 0.58 - 0.96 mg/dL Final 02/09/2022 0.66 0.58 - 0.96 mg/dL Final 02/08/2022 0.66 0.58 - 0.96 mg/dL Final Estimated Glomerular Filtration Rate Date Value Ref Range Status 02/10/2022 107 >=60 mL/min/1.73m Final Comment: Estimated Glomerular Filtration Rate (eGFR) is calculated using the 2020 CKD-EPI creatinine equation. This equation utilizes serum creatinine, sex, and age as parameters. The creatinine assay has traceable calibration to isotope dilution-mass spectrometry. Refer to KDIGO guidelines for clinical interpretation. In patients with unstable renal function, e.g. those with acute kidney injury, the eGFR may not accurately reflect actual GFR. eGFR- Date Value Ref Range Status 12/12/2019 >60 Final P.O.C.T. RESULTS: POC done: Yes, See Lab Tab August 24, 2022 TREATMENT: N/A PERIPHERAL IV DATA: Ambulatory: A peripheral IV was started in the Left antecubital site with a Angio cath: 22 gauge. RADIOLOGY DEPARTMENT: CT; Exam(s) Completed: Abdomen/Pelvis SIGNATURE: RT Eligio(R) PATIENT NAME: Aly SOLORIO DATE: August 24, 2022 TIME: 3:36 PM documented in this encounter [facility] 08-24-2022 Miscellaneous Notes Aly Solorio returned call. Moving surgery to 09/13 is fine with her. [phone] documented in this encounter [facility] 08-24-2022 Miscellaneous Notes left message for call back to discuss moving surgery to 09/13. Alvina Hobbs RN documented in this encounter [facility] 08-23-2022 Miscellaneous Notes Called pt and left a VM message for pt to return this nurse's call. Office number left. Janet Vera RN August 23, 2022 9:55 AM documented in this encounter [facility] 08-19-2022 Miscellaneous Notes spoke to pt, confirmed surgery date of september 16 routing 09/07. Alvina Hobbs RN documented in this encounter [facility] 08-17-2022 History of Present illness Narrative Virtual Follow Up Visit Provider Location: Non-[facility] Facility Patient Location: Patient Home or Place of Residence SUBJECTIVE Aly SOLORIO [id number] has requested a video telemedicine for follow up of Crohn's disease. Last seen 02/18/[address] Morton. IBD History (copied and updated from prior notes) Ms. Solorio, is a 32 year old female with a history of Crohns disease diagnosed in 2000 and underwent a ileocolic resection in 2004. Was treated initially with Pentasa then Imuran and the after surgery was on IFX and AZA in the past as a child unclear why this was stopped. She has been treated with Adalimumab for the last several years. Recent endoscopy with i4 disease with stricture. Changes and test results since last visit: Feels well overall 2 BMs daily no blood no severe pain does have days with constipation and bloating. No recent obstructive symptoms. Tolerating diet no nausea some early satiety weight is stable. Some GERD. No EIMs Humira last dose was last Current Clinical Symptoms # of bowel movements daily: 2 Consistency: soft Bloody bowel movements: no Urgency: yes Abdominal pain: occasional Abdominal distention: no Nausea/vomiting: on occasion Weight loss over last 3 months: no Diagnosis Crohn's Disease: Date of diagnosis (year): 2000 Phenotype Location affected: ileum Behavior: inflammatory fibrostenotic Perianal disease: no Prior Medications/Dates/Reason for Switch Surgery: ICR Systemic steroids last year: No Enteric or rectal steroids last year: No Systemic 5-ASA: Pentasa early in disease course Local 5-ASA: No Thiopurines: AZA in the past Methotrexate: No Biologics: infliximab, unclear why this was stopped adalimumab, Current Small molecules: No Current Medications Adalimumab q 2 Labs TB Status: Negative 08/2018 Hepatitis B Status: Core Positive 08/2018 TPMT: Unknown Vaccines if on biologic therapy (Instructed to avoid live vaccines): Immunization History Administered Date(s) Administered COVID-19 original vaccine, age 12+ yr, monovalent ([employer] - PURPLE TOP) 10/21/2020 11/16/2020 Haemophilus influenzae b (Hib) vaccine, unspecified formulation 11/03/1994 diphtheria tetanus pertussis (DTaP) vaccine, unspecified formulation 11/03/1994 01/09/1995 03/14/1995 07/05/1996 08/04/1997 06/18/2002 hepatitis B (HepB) vaccine, 3-dose series, age 0 yr - 19 yr (ENGERIX B-PEDS, RECOMBIVAX HB-PEDS) 06/04/2003 02/24/2004 hepatitis B (HepB) vaccine, 3-dose series, age 20+ yr (ENGERIX-B, RECOMBIVAX HB) 05/30/2022 06/29/2022 human papillomavirus (HPV4) vaccine, quadrivalent (GARDASIL) 11/09/2006 01/10/200705/15/2007 influenza (IIV3) vaccine, trivalent, PF (AFLURIA, FLUARIX, FLULAVAL, FLUVIRIN, FLUZONE) 10/28/2016 12/06/2017 influenza (IIV4) vaccine, age 6 mo - 64 yr, quadrivalent (AFLURIA, FLULAVAL, FLUZONE) 12/12/2019 11/22/2021 influenza (IIV4) vaccine, age 6 mo - 64 yr, quadrivalent, PF (AFLURIA, FLUARIX, FLULAVAL, FLUZONE) 03/15/2016 influenza vaccine, whole virus 12/27/2003 01/12/2007 01/03/2008 measles mumps rubella (MMR) vaccine (M-M-R II, PRIORIX) 08/05/2003 02/24/2004 meningococcal (MenACWY-D) vaccine, quadrivalent (MENACTRA) 11/09/2006 poliovirus vaccine, unspecified formulation 11/03/1994 01/09/1995 03/14/1995 07/05/1996 tetanus diphtheria pertussis (Tdap) vaccine, age 7+ yr (ADACEL, BOOSTRIX) 01/27/2018 tuberculin skin test (TST-PPD), purified protein derivative, intradermal 05/30/2022 06/08/2022 varicella (AMADO) vaccine (VARIVAX) 08/05/2003 09/17/2008 Current Outpatient Medications Medication Sig Dispense Refill HUMIRA PEN 40 mg/0.8 mL INJECT 40 MG (0.8 ML) UNDER THE SKIN EVERY 2 WEEKS (CONTINUATION OF THERAPY) 2 Each 5 venlafaxine ER (EFFEXOR XR) 75 mg 24 hr capsule Take 1 capsule by mouth once daily. 90 capsule 3 nicotine (NICODERM) 21 mg/24 hr Apply 1 Patch as directed every 24 hours. 30 Patch 0 nicotine (NICODERM) 14 mg/24 hr Apply 1 Patch as directed every 24 hours. No smoking with patch. 30 Patch 0 nicotine (NICODERM) 7 mg/24 hr Apply 1 Patch as directed every 24 hours. 30 Patch 0 venlafaxine ER (EFFEXOR XR) 75 mg 24 hr capsule Take 1 capsule by mouth once daily. 30 capsule 0 No current facility-administered medications for this visit. ALLERGIES No Known Allergies PAST SURGICAL HISTORY Procedure Laterality Date SECTION HX 03/29/2018 COLONOSCOPY STOMA W/ENDOSCOPIC MUCOSAL RESCJ 2005 small and large resection Review of Systems: GENERAL:No weight loss, malaise or fevers HEENT:Negative for frequent or significant headaches, No changes in hearing or vision, no nose bleeds or other nasal problems NECK:Negative for lumps, goiter, pain and significant neck swelling RESPIRATORY: Negative for cough, hemoptysis, wheezing, COPD, dyspnea or shortness of breath CARDIOVASCULAR: Negative for chest pain, leg swelling, hypertension, CHF or palpitations GASTROINTESTINAL: See HPI GENITOURINARY: No history of dysuria, frequency or incontinence 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 SKIN:Negative for lesions, rash, and itching PSYCHIATRIC: Negative for sleep disturbance, mood disorder and recent psychosocial stressors. HEMATOLOGIC/LYMPHATIC/IMMUNOLOGIC :Negative for prolonged bleeding, bruising easily or swollen nodes ENDOCRINE: Negative for cold or heat intolerance, polyuria, polydipsia and goiter The remainder of the ROS was negative. PHYSICAL EXAMINATION General: alert and appropriate, in no distress and well-hydrated, well nourished, Head: normocephalic, no abnormality or lesion noted, Eyes: visual acuity is grossly normal, no injection,, and EOMI, Oropharynx: moist mucus membranes, no tonsillar hypertrophy/exudate, uvula midline and pharynx non-erythematous, lips, teeth and gums are without obvious lesion, Neck: full ROM, no cervical LNs noted, Respiratory: breathing non-labored, and no grunting/flaring/retractions, Chest: equal chest rise with normal respiratory effort, Abdomen: flat appearing. Visible protrusions or hernias: No Incisions/scars: None Areas of pain/tenderness: Denies Skin: no rash noted, Neuro: Patient seen sitting with normal appearing strength and coordination. No focal motor deficits. Psych: Appropriate mood and interaction Most recent labs: CBC: WBC (k/uL) Date Value 02/10/2022 7.95 Hematocrit (%) Date Value 02/10/2022 41.6 MCV (fL) Date Value 02/10/2022 81.6 Platelet Count (k/uL) Date Value 02/10/2022 317 Lymphocytes % (%) Date Value 02/06/2022 32.5 Hepatic Function Panel: Albumin (g/dL) Date Value 02/09/2022 3.9 Bilirubin, Total (mg/dL) Date Value 02/06/2022 0.5 Alkaline Phosphatase (U/L) Date Value 02/06/2022 49 AST (U/L) Date Value 02/06/2022 22 ALT (U/L) Date Value 02/06/2022 19 Protein, Total (g/dL) Date Value 02/06/2022 6.0 (L) CRP: CRP Date Value Ref Range Status 02/07/2022 1.9 (H) <0.9 mg/dL Final No results found for: QTBGOLD No results found for: HRINTP TB INTRADERMAL TEST Date Value Ref Range Status 06/10/2022 0 x 0mm 0 x 0 - 10 x 10 mm Final Comment: Negative No results found for: PTMPT No results found for: FOLATE No results found for: B12 No results found for: FE, TIBC No results found for: VITD25 Last Endoscopy: Colonoscopy 08/11/2022 Impression: - Patent [id number] ileo-colonic anastomosis, characterized by healthy appearing mucosa. - Crohn's disease with ileitis 15 cm proximal to the anastomosis. Biopsied. - Stricture in the scout-terminal ileum. Dilated. - Stricture in the scout-terminal ileum. Biopsied. - Simple Endoscopic Score for Crohn's Disease: 6, mucosal inflammatory changes secondary to Crohn's disease with ileitis. Pathology FINAL DIAGNOSIS A. Ileum, biopsy: - Chronic active enteritis with erosion. - Negative for granulomatous inflammation and dysplasia. B. Ileum, biopsy: - Small intestinal mucosa with no diagnostic abnormality. - Negative for active and granulomatous inflammation. - Negative for dysplasia. Assessment IMPRESSION (as copied and updated from my / note and reflects medical decision making today): 32 year old female with a history of Crohns disease diagnosed in 2000 and underwent a ileocolic resection in 2004. Was treated initially with Pentasa then Imuran and the after surgery was on IFX and AZA in the past as a child unclear why this was stopped. She has been treated with Adalimumab for the last several years. Recent endoscopy with i4 disease with stricture. She presents today post colonoscopy. Overall doing okay 2 bowel movements daily no blood no severe abdominal pain but does have some minimal. Does note some ongoing constipation and bloating no recent full obstruction. Tolerating diet overall no nausea some early satiety weight is stable some help with reflux. I discussed that her recent colonoscopy revealed pretty severe disease with stenosis. I discussed that she likely needs surgical intervention in the near future and that I suspect Humira is not helping her. We will plan for labs including a Humira level next week prior to next injection. We will plan for CT enterography to fully assess and will have her follow-up with colorectal surgery to discuss as well. Pending labs and imaging will decide if surgery is the next that versus either dose optimization likely changing medication. I suspect surgery will be the next option. I would suggest Stelara/Skyrizi or possibly Rinvoq. PLAN Continue Humira Labs and Humira level next week (prior to next dose) CTE in the near future Will consult [facility] for likely surgical intervention Likely need to change medication vs dose optimization of Adalimumab after surgery I spent 30 minutes in the virtual visit, with more than 50% of the total [id number] time of the visit in counseling / coordination of care. I have confirmed and edited as necessary, the PFSH and ROS obtained by others. I will communicate my recommendations and prescriptions to the patient's primary care provider. Unrelated to E/M, telemedicine, or virtual visit service provided within previous 7 days. No E/M service or procedure anticipated within next 24 hours. I have communicated my name and active licensure. The patient's identity and physical location were verified at the time of this visit. Either the patient or their legal traffic representative has been informed of the risks and benefits of -- and alternatives to -- treatment through a remote evaluation and consents to proceed with the evaluation remotely. Karla Noriega PA-C August 17, 2022 10:39 AM documented in this encounter [facility] 08-12-2022 Miscellaneous Notes Summary: schedule follow up visit after colonoscopy Images from the original note were not included. Received: Yesterday MD Karla Paredes PA-C; Alycia Fierro. I need you to see this patient of [facility] soon. Scoped her today and she has tight ileal strictures. She needs CTE or MRE and a [facility] eval. Thanks Nicholas Sanchez voicemail asking patient to return call to scheduling [phone], option 0 to schedule follow up. Also sent TiVo message. Alycia Araujo documented in this encounter [facility] 07-29-2022 Miscellaneous Notes Received fax from [facility] requesting prescription information regarding pt's Humira. Form reviewed and signed by Dr. Morton. [facility] at [phone]. Janet Vera RN July 29, 2022 9:39 AM documented in this encounter [facility] 06-29-2022 History of Present illness Narrative Patient presents for Hepatitis B vaccine. Denies any problems at this time. Tolerated injection well. Mary Ibrahim LPN documented in this encounter [facility] 06-13-2022 Miscellaneous Notes Telephone on 06/13/22 HEP B VACCINE, 3-DOSE, AGE 20+ YR (ENGERIX-B, RECOMBIVAX HB) HEP B VACCINE, 3-DOSE, AGE 20+ YR (ENGERIX-B, RECOMBIVAX HB) Thanks, Glen Parkinson PA-C Patient scheduled for nurse visit 06/29/22 to receive Hepatitis B vaccine. Please place order at this time. Mary Ibrahim LPN documented in this encounter [facility] 06-10-2022 History of Present illness Narrative Patient presents for PPD read only. Denies any problems at this time. Mary Ibrahim LPN documented in this encounter [facility] 06-08-2022 History of Present illness Narrative Radiology Service Progress Note PATIENT NAME: Aly SOLORIO DATE OF SERVICE: June 08, 2022 TIME: 11:43 AM PATIENT IDENTITY VERIFICATION COMPLETED USING TWO (2) IDENTIFIERS: Name and Date of confirmed by patient verbally. FALL SCREENING: Has the patient had 2 falls in the last year or 1 fall with injury or currently using an Ambulatory Assistive Device (Walker, Cane, Wheelchair, Crutches, etc.)? No PATIENT GENDER DATA: Female. status: : No status: NO. PATIENT RELEVANT IMPLANT DATA REVIEWED: Not Applicable RADIOLOGY DEPARTMENT: Ultrasound PERIPHERAL IV DATA: Not applicable SIGNED BY: Alycia Guerra RDMS RVT June 08, 2022 11:43 AM documented in this encounter [facility] 06-08-2022 History of Present illness Narrative Patient presents for PPD administration. Denies any problems at this time. Tolerated injection well. Mary Ibrahim LPN documented in this encounter [facility] 06-03-2022 Miscellaneous Notes Telephone on 06/03/22 PPD (TB INTRADERMAL [id number]) B/O Glen Parkinson PA-C Patient scheduled for nurse visit 06/08/22 to receive PPD. Please place order at this time. Mary Ibrahim LPN documented in this encounter [facility] 06-01-2022 History of Present illness Narrative Patient presents for PPD read only. Denies any problems at this time. Mary Ibrahim LPN documented in this encounter [facility] 05-30-2022 Instructions Cory Parkinson PA-C - 05/30/2022 3:10 PM EDT HEALTH MAINTENANCE Routine health maintenance, including regular aerobic exercise, low fat diet, and periodic exams. Your Body mass index is 32.75 kg/m . (Target BMI: 19-25) Pap guidelines: PAP smear yearly or every other year between 20-30, then every 3 years if negative HPV Mammogram yearly starting at age 40. Calcium 1200mg, Vitamin D3 800-1,000 international unit(s) summer, 2000u, and 400mcg folic acid recommended. Recommend sunscreen spf 25 and regular dental examinations. LABS In the absence of additional risk factors: Thyroid screening every 5 years after age 50 Fasting blood sugar every 3 years after age 45 Fasting cholesterol every five years after age 45 IMMUNIZATIONS Td every 10 years Yearly Seasonal Flu shot Gardasil vaccine between 12-26 years old Meningococcal vaccine if dorm-living documented in this encounter [facility] 05-30-2022 History of Present illness Narrative 31 year old female with c/o general physical Adjustment disorder with anxiety (primary encounter diagnosis) Current medications: Venlafaxine ER 75mg daily Doing well. Vaping nicotine dependence, non-tobacco product Current medications: Nicoderm 21mg patch daily and tapering over 3 months. Smoking 1 cigarette a day Sbo (small bowel obstruction) (hcc) Chrohn's disease, age 9 Colon resection age 14, 2004 Recovered from recent hospitalizaiton Current medications: Humira 40mg [id number] Stools have regulated twice a day, mostly formed Trying to improve diet. HISTORIES FAMILY HISTORY Adopted: Yes Problem Relation Age of Onset Cancer Father Lung PAST MEDICAL HISTORY Diagnosis Date ASCUS with positive high risk HPV cervical 05/11/2018 Colopscopy benign Crohn disease (HCC) 2000 Small bowel obstruction (HCC) 02/06/2022 PAST SURGICAL HISTORY Procedure Laterality Date SECTION HX 03/29/2018 COLONOSCOPY STOMA W/ENDOSCOPIC MUCOSAL RESCJ 2005 small and large resection Social History Tobacco Use Smoking status: Former Types: Cigarettes Smokeless tobacco: Never Vaping Use Vaping Use: current everyday user Substances: Nicotine Devices: LIN TV tank Substance Use Topics Alcohol use: Not Currently Drug use: Never ACTIVE PROBLEM LIST Atypical Squamous Cell Changes of Undetermined Significance (Ascus) On Cervical Cytology With Positive High Risk Human Papilloma Virus (Hpv) Small Bowel Obstruction (Hcc) Nicotine use disorder, F17.2 Current Outpatient Medications Medication Sig Dispense Refill venlafaxine ER (EFFEXOR XR) 75 mg 24 hr capsule Take 1 capsule by mouth once daily. 90 capsule 3 nicotine (NICODERM) 21 mg/24 hr Apply 1 Patch as directed every 24 hours. 30 Patch 0 nicotine (NICODERM) 14 mg/24 hr Apply 1 Patch as directed every 24 hours. No smoking with patch. 30 Patch 0 nicotine (NICODERM) 7 mg/24 hr Apply 1 Patch as directed every 24 hours. 30 Patch 0 venlafaxine ER (EFFEXOR XR) 75 mg 24 hr capsule Take 1 capsule by mouth once daily. 30 capsule 0 HUMIRA PEN 40 mg/0.8 mL Inject 40 mg (0.8 ML) under the skin every 2 weeks (continuation of therapy) 2 Each 5 No current facility-administered medications for this visit. HEPATITIS A(1 of 2 - Risk 2-dose series) Never done MMR(1 of 2 - Risk 2-dose series) Never done HIV SCREENING Never done DEPRESSION ASSESSMENT Never done REVIEW OF SYMPTOMS: General: denies fatigue, unusual weight loss or gain, fevers, chills. Energy Level: good. Exercise none. Sleep: hours: 5h, doesn't feel refereshed Diet: none Tobacco use: on patches, one cig a day. Caffeine use: a lot. ETOH use: none. Marijuana use: none. Illicit drug use: none. Eyes: denies change in vision, glaucoma, cataracts. Near sighted with astigmatism glasses/contacts. Last eye exam: about 1 year. EENT: denies recurrent sinus infection, unusual nasal drainage, hoarsemess, sore throat, or recurrent sore in mouth or tongue. No dysphagia Cardiovascular: denies chest pain , SOB, palpitation, irregular or racing heart beats, orthopnea, leg swelling, history of rheumatic fever or prior heart conditions Respiratory: denies unusual cough, SOB, wheezing, history of recurrent bronchitis, pneumonia or tuberculosis. Denies day time drowsiness. Unsure Snoring. no sleep apnea or day time drowsiness. GI: denies difficulty swallowing, nausea, vomiting, change in appetite. No change in bowel habits. Denies frequent constipation, diarrhea, rectal bleeding or hemorrhoids, incontinence. + Crohn's disease, scar tissue from colon resection. No history of GERD, PUD, jaundice/hepatitis, GB disease, diverticulosis, colorectal cancer, hernias. Kidney/Bladder: Denies frequency, burning. Hx UTI x 3. No STDs Nocturia: not usually, incontinence none. No history of kidney stones, recurrent UTI or kidney infection. Females: Menses of Depo Provera last July, period occurring about every other month with normal flow. no hx of ovarian cysts, no pelvic infection, no tubal , 1/3 pap with ASCUS which cleared next check. Skin: denies unusual rashes. No history of skin cancer, bleeding/changing moles, or unusual skin lesions. Neurologic: Intense headaches twice a year, saw neuro as child r/t numbness down arms. Denies recurrent KINNEY, change in vision, hearing or smell, tremors, unusual weakness, loss of sensation, or difficulty with balance or gait. No history of epilepsy/convulsions, migraine, head/spinal injuries, or stroke/TIA. Psychiatric: denies unusual worry, moodiness, depression, suicidal ideation or unusual disturbance in relationships. No history of psychiatric illness. Endocrine: denies unusual thirst, hunger, excessive urination, change in skin or hair texture, emotional lability. No history of thryoid, pituitary or hormonal problems. Hematologic: denies unusual bleeding, bruising, or history of anemia or blood transfusion. Denies hx blood clots. Infections: denies risk factors for HIV, hepatitis or history of unusual infection. Immunizations are up to date. Musculoskeletal: denies unusual stiffness, muscles aches, joint pain, or swelling. Denies recurrent sprain or disruption of joints, debilitating arthritis, gout, or other musculoskeletal disease. No Hx back injury, spinal stenosis, radiculopathy. EXAM: BP 112/60 Pulse 86 Resp 16 Ht 150.2 cm (4' 11.15) Wt 73.9 kg (163 lb) LMP (LMP Unknown) SpO2 98% BMI 32.75 kg/m Pleasant obese adult woman in no acute distress. Alert and oriented all spheres. Normal affect and cognition. Speech normal. No deficits to learning or comprehension. Skin warm, dry, pink to lips and nailbeds. Normal turgor. Respirations regular and unlabored. HEENT: NCAT. No scleral icterus or conjunctival injection. TM's clear. Nose and oropharynx free from injection or lesion. Oral membranes moist and pink. No cervical lymph nodes. Thyroid non-tender, feels smooth but larger on left, possible nodule. Carotids pulses 2+/4+ without bruits. No JVD with HOB at 30 degrees. Chest is normal shape. Lungs are clear to all rider with good air exchange through out. HRRR without murmur or gallop. No lifts, heaves, or rubs. Abdomen: active bowel sounds throughout, soft, nontender, no masses or organomegaly. No CVAT. Extrem: no clubbing or cyanosis. Edema: none. Extremities are warm and pink with prompt capillary refill. Gait and balance normal. Sensation grossly intact. Negative findings: speech normal, mental status intact, cranial nerves 2-12 intact, muscle tone normal, DTRs 2/4+ and symmetric back FROM, no abnormal curvature. Able to touch toes. Able to hold to 10 count with Rob stretch, reverse straight leg. SLR ro 90 degrees. Can do partial sit up without difficulty. ASSESSMENT/PLAN: 1. Adjustment disorder with anxiety - ICD9: 309.24, ICD10: F43.22 (primary diagnosis) Stable on medication which is helping: continue venlafaxine. - TSH BLD 2. Vaping nicotine dependence, non-tobacco product - ICD9: 305.1, ICD10: F17.200 - Cessation encouraged. - Physiologic and physical aspects of tobacco addiction as well as strategies for quitting were discussed. - Counseling was given focusing on the harmful effects of this addiction especially given the patient's medical condition(s) which will be worsened because of the chemicals in tobacco. - continue nicotine patches. 3. Crohn's disease of small intestine with intestinal obstruction (HCC) - ICD9: 555.0, ICD10: K50.012 Since childhood, prior surgery, improving with biologics 4. SBO (small bowel obstruction) (HCC) - ICD9: 560.9, ICD10: K56.609 resolved 5. Need for vaccination - ICD9: V05.9, ICD10: Z23 - HEP B VACCINE, 3-DOSE, AGE 20+ YR (ENGERIX-B, RECOMBIVAX HB) - PPD (TB INTRADERMAL 47581) B/O 6. Screening for lipid disorders - ICD9: V77.91, ICD10: Z13.220 - LIPID PANEL BASIC 7. Thyromegaly - ICD9: 240.9, ICD10: E01.0 - US THYROID/PARATHYROID - TSH BLD - T4 FREE/FREE THYROX 8. Screening-pulmonary TB - ICD9: V74.1, ICD10: Z11.1 - HEP B VACCINE, 3-DOSE, AGE 20+ YR (ENGERIX-B, RECOMBIVAX HB) 9. Well adult exam - ICD9: V70.0, ICD10: Z00.00 - Counseled on healthy diet and regular exercise - Calcium intake with supplements or by diet of 1000 mg/day for under 50, 8528-6597 mg/day for 50+ - Discussed need and benefit for weight loss. BMI 32.75 kg/(m^2) - Smoking cessation encouraged; discussed risks to health and quitting strategies. Patient is using patches - Depression screening tool completed and reviewed with patient. Based on score and interview, patient is already diagnosed with depression and recommended continuing current plan of care. - Patient was counseled [id number] by myself (the billing provider) for the following immunizations and vaccine components, including side effects: Hep B Vaccine. Patient consents for immunization and understands risks and benefits. A VIS sheet on each immunization was given to the patient. - Follow up for annual exam in one year Forms completed. Will try to locate immunization records- if unable will need to do titers. Weight encouraged. Brief review of options with medication and bariatric surgery. Unlikely to be metabolic disorder but screening lab entered. See d/c instructions reviewed withkarson Parkinson PA-C documented in this encounter [facility] 04-22-2022 History of Present illness Narrative 31 year old female with c/o medication refills and discuss mental issues. Patient identifies issues with obtaining prescription from pharmacy, was told that refills were requested to the pharmacy. I did explain to her that this facility does not accept automated refills and the patient has to call or MyChart for refills of her medication. Subsequently patient ran out of medication and has been off for about 6 days. Has had some mild withdrawal symptoms with feeling scattered and having trouble focusing. Current meds: Venlafaxine ER 75mg daily Change in medication ran out of refills. Currently in counseling? No. Any Medication side effects? No. Sleep disturbance? No. Sleep significantly improved. Loss of interest in usual pleasurable activities?No. Sense of guilt, shame, low self esteem?No. Energy: Improved on medication Trouble with concentration? Noted marked improvement in concentration and school performance. Changes in appetite? No. Changes in weight? No Psychomotor retardation: No Suicidal thoughts: No Racing thoughts? No. Interpersonal/ family conflicts? No. Irritability? No. Recent SBO Admitted 02/06 to 02/10/2022 [facility] History of Crohn's on twice monthly marrow status post right hemicolectomy at age 14 transferred from [facility] with abdominal pain and vomiting which started on 02/03/2022. CT was concerning for small bowel obstruction. She was admitted and treated with NG tube for gastric decompression with resolution. Since then: Doing fine with bowels. 2-3 times a day depending on coffee. A few tapered stools. Feels bloated sometimes- acknowledges terrible diet. Currently vaping, states she uses about a full cartridge daily. Wants to quit and ask if it is possible to go through nicotine replacement. HISTORIES FAMILY HISTORY Adopted: Yes Problem Relation Age of Onset Cancer Father Lung PAST MEDICAL HISTORY Diagnosis Date ASCUS with positive high risk HPV cervical 05/11/2018 Colopscopy benign Crohn disease (HCC) 1999 PAST SURGICAL HISTORY Procedure Laterality Date SECTION HX 03/29/2018 COLONOSCOPY STOMA W/ENDOSCOPIC MUCOSAL RESCJ 2005 small and large resection Social History Tobacco Use Smoking status: Former Types: Cigarettes Smokeless tobacco: Never Vaping Use Vaping Use: current everyday user Substances: Nicotine Devices: Kindling Substance Use Topics Alcohol use: Not Currently Drug use: Never ACTIVE PROBLEM LIST Atypical Squamous Cell Changes of Undetermined Significance (Ascus) On Cervical Cytology With Positive High Risk Human Papilloma Virus (Hpv) Nicotine use disorder, F17.2 Current Outpatient Medications Medication Sig Dispense Refill venlafaxine ER (EFFEXOR XR) 75 mg 24 hr capsule Take 1 capsule by mouth once daily. 30 capsule 0 cyclobenzaprine (FLEXERIL) 10 mg tablet Take 1 tablet by mouth three times daily as needed for muscle spasm. 15 tablet 0 HUMIRA PEN 40 mg/0.8 mL Inject 40 mg (0.8 ML) under the skin every 2 weeks (continuation of therapy) 2 Each 5 No current facility-administered medications for this visit. HEPATITIS A(1 of 2 - Risk 2-dose series) Never done MMR(1 of 2 - Risk 2-dose series) Never done HIV SCREENING Never done DEPRESSION ASSESSMENT Never done EXAM: BP 124/66 Pulse 72 Resp 16 Wt 73.5 kg (162 lb) LMP (LMP Unknown) SpO2 98% BMI 31.64 kg/m Pleasant well-appearing overweight adult woman in no acute distress. Alert and oriented all spheres. Cheerful, euthymic, affect congruent, normal cognition. and speech. Remains goal oriented. No deficits to learning or comprehension. Skin warm, dry, pink to lips and nailbeds. Normal turgor. Respirations regular and unlabored. Chest is normal shape. Lungs are clear to all rider with good air exchange through out. HRRR without murmur or gallop. No lifts, heaves, or rubs. Extrem: no clubbing or cyanosis. Edema: none. Extremities are warm and pink with prompt capillary refill. ASSESSMENT/PLAN: 1. Adjustment disorder with anxiety - ICD9: 309.24, ICD10: F43.22 (primary diagnosis) Since patient is doing well on medication without side effects we will continue medication, refilled for 1 year. Recommend patient continue on medication for that duration, if she decides she wants to go off we reviewed weaning procedures over 3 weeks. Follow-up in 1 year or as needed - VENLAFAXINE ER 75 MG CAPSULE,EXTENDED RELEASE 24 HR 2. Vaping nicotine dependence, non-tobacco product - ICD9: 305.1, ICD10: F17.200 - Cessation encouraged. - Physiologic and physical aspects of tobacco addiction as well as strategies for quitting were discussed. - Counseling was given focusing on the harmful effects of this addiction especially given the patient's medical condition(s) which will be worsened because of the chemicals in tobacco. - NICOTINE 21 MG/24 HR DAILY TRANSDERMAL PATCH - NICOTINE 14 MG/24 HR DAILY TRANSDERMAL PATCH - NICOTINE 7 MG/24 HR DAILY TRANSDERMAL PATCH 3. SBO (small bowel obstruction) (HCC) - ICD9: 560.9, ICD10: K56.609 Resolved, patient is doing well at the current time. Cory Parkinson PA-C documented in this encounter [facility] 04-21-2022 Miscellaneous Notes Sent in 1 month Glen Manriquez PA-C Patient sent a refill request that was forwarded to you. documented in this encounter [facility] 04-21-2022 Miscellaneous Notes Patient has been identified by name and date of : Yes Requested Prescriptions Pending Prescriptions Disp Refills venlafaxine ER (EFFEXOR XR) 75 mg 24 hr capsule 30 capsule 2 Sig: Take 1 capsule by mouth once daily. RX INSTRUCTIONS: See her message regarding message appointments. Scheduled 04/22/22 Ford Brower LPN documented in this encounter [facility] 04-19-2022 Miscellaneous Notes Received fax from [facility] for pt's Humira 40mg/0,8ml every 2 weeks. Completed online form and sent to insurance with office visit notes/labs. Await response. ([place]: [email or web address]). Janet Vera RN April 19, 2022 2:49 PM documented in this encounter [facility] 02-18-2022 Instructions Tad Morton MD - 02/18/2022 11:37 AM EST Images from the original note were not included. Bowel Preparation Instructions for: Miralax-Gatorade Preparations IF YOU DO NOT FOLLOW THESE DIRECTIONS, YOUR COLONOSCOPY WILL BE CANCELLED. [place] Instructions: Your bowel must be empty so that your doctor can clearly view your colon. Follow all of the instructions in this handout EXACTLY as they are written. Do NOT eat any solid food the ENTIRE day before your colonoscopy. Buy your bowel preparation at least 5 days before your colonoscopy. Four (4) Dulcolax laxative tablets containing 5mg of bisacodyl each (NOT Dulcolax stool softener) One (1) 8.3oz. bottle Miralax (238 grams) or generic equivalent 2 x 32oz. Bottles of Gatorade (NOT RED) Diabetic Patients: Use G2 (Gatorade 2) TRANSPORTATION on the Day of Your Exam A responsible adult MUST be present with you at Check In prior to your colonoscopy and REMAIN in the endoscopy area until you are discharged. You are NOT ALLOWED to drive, take a taxi or bus, or leave the Endoscopy Center ALONE. If you do not have a responsible limousine driver (family member or friend) with you to take you home, your exam cannot be done with sedation and will be cancelled. Please bring a list of all of your current medications, including any Qxfy-[id number] medications with you. Medications If you take insulin, diabetic medications or blood thinners such as Coumadin (warfarin), Plavix (clopidogrel), Ticlid (ticlopidine hydrochloride), Agrylin (anagrelide), Xarelto (Rivaroxaban), Pradaxa (Dabigatran), Eliquis (Apixaban), and Effient (Prasugrel). You MUST call the doctors who orders those medicines for instructions on altering the dosage before your colonoscopy. All other medications should be taken the day of the exam with a sip of water including ASPIRIN. Five (5) Days Before Your Colonoscopy Do NOT take medicines that stop diarrhea - such as Imodium, Kaopectate, or Pepto Bismol. Do NOT take fiber supplements - such as Metamucil, Citrucel, or Perdiem. Do NOT take products that contain iron - such as multi-vitamins (the label lists what is in the products). Three (3) Days Before Your Colonoscopy Do NOT eat high-fiber foods - such as popcorn, beans, seeds (flax, sunflower, quinoa), multigrain bread, nuts, salad/vegetables, or fresh and dried fruit. 1 Bowel Preparation Instructions for: Miralax-Gatorade Preparations One (1) Day Before Your Colonoscopy Only drink clear liquids the ENTIRE DAY before your colonoscopy. Do NOT eat any solid foods. Drink at least 8 ounces of clear liquids every hour after waking up. The clear liquids you can drink include: Clear Liquid (NO RED LIQUIDS) DO NOT DRINK Gatorade, Pedialyte or Powerade Clear broth or bouillon Coffee or tea (no milk or non-dairy creamer) Carbonated and non-carbonated soft drinks Richard-Aid or other fruit flavored drinks Strained fruit juices (no pulp) Jell-O, popsicles, hard candy Water Alcohol Milk or non-dairy creamers Noodles or vegetables in soup Juice with pulp Liquid you cannot see through Do not use tobacco/vaping products Mix 1/2 of Miralax bottle (119 grams) in each 32 ounces of Gatorade bottle until dissolved. Keep cool in the refrigerator. DO NOT ADD ICE. The bowel preparation solution will be consumed in two parts. Part 1 5:00 PM - Evening before your colonoscopy Take 4 Dulcolax tablets. 6 PM - Evening before your colonoscopy Drink 32 oz. of the mixed solution. Drink an 8 oz. glass of bowel preparation every 15 minutes for a total of 4 glasses. Fifteen (15) minutes later, drink an 8 oz. glass of of clear liquids every 15 minutes for a total of 2 glasses. You may continue to drink clear liquids till midnight. Part 2 On the day of your colonoscopy you may drink clear liquids up to (three) 3 hours prior to procedure. 4 1/2 hours before your colonoscopy Take another 32 oz. bottle of mixed solution. Drink an 8 oz. glass of bowel prep every 15 minutes for a total of 4 glasses. Fifteen (15) minutes later, drink an 8 oz. glass of clear liquids every 15 minutes for a total of 2 glasses. You may continue to drink clear liquids up to (three) 3 hours before your exam. 2 01/2019 documented in this encounter [facility] 02-18-2022 History of Present illness Narrative Virtual visit, 20 minutes, patient agreed 31 yo with Crohn's disease, s/p ICR at age 14. Currently on Humira q2w which is helping her sx. Admitted 2 weeks ago for SBO - found to be at the anastomosis. Sx resolved with conservative mgmt and now pt feels back to baseline. Hx of several obstructive episodes over the years and no recent colonoscopy. Crohn's disease - will check colonoscopy with balloon dilation of the anastomosis and assessment of the degree of inflammation of the mucosa. Tad Morton MD documented in this encounter [facility] 02-12-2022 History of Present illness Narrative TCM Home Visit Referral Source of Stratification: TCM [facility] Hospital Admission Status: Discharged Readmission Risk Score: 13 CARROL Score: 1 Patient meets program referral criteria: No Patient does not qualify for High Risk TCM Home Visit program due to: Discharged home, does not meet program criteria TRANSITIONAL CARE MANAGEMENT (TCM) COMMUNITY MONITORING PROGRAM Provider Action/FYI: TCM Initial Hospital Discharge [facility] on 02-10-22, 2nd Attempt. PCP Dr Pope 03/07/21 GI sched for 02/18/22 Patient states she is doing alright, rested well last night Denies abdominal pain, appetite remains low, trying to eat, no nausea or vomiting Staying well hydrated Passing a little flatus, had a soft BM last night Reviewed medications - no new medications this admission Appointments for Next 60 Days Date Time Provider Location Dept Phone 02/18/2022 11:30 AM TAD MORTON [facility] [phone] 03/07/2022 11:00 AM Cory [facility] [phone] SUMMARY: Pt discharged from [facility] on 02/10/22. Admitted for: SBO Contact made with patient: Yes Hi my name is Liudmila Romero RN and I am calling from the [facility] on behalf of your PCP, Roque Pope MD I understand you were recently in the hospital so I am calling to check in with you to ensure you are feeling well now that you're home. May I ask you a few questions related to your hospital stay and well-being? Yes Contact with patient post discharge, spoke to patient. Patient identified by name and . Do you feel your health is BETTER, WORSE, or the SAME since leaving the hospital? Better ACTION TAKEN: Patient indicated symptoms are better or same, no action required. Continue outreach. MEDICATIONS: Many patients have questions or concerns about their medications once they are home. Do you have any questions about taking your medications or which medication you should be on? No Do you need any medication refills at this time, including any of the medications you might take only when needed? No ACTION TAKEN: No action required For RNs or Pharmacy completing outreach ONLY, was a medication review completed? Yes SOCIAL: We would like to make sure you have what you need so that your basics needs are met - including your personal safety, food, housing and medications. Would you like to speak with a social work long line teamster to help give you support for any of these needs? No It can be normal to feel anxious or down during a time like this. Would you like to talk to a mental health professional about how you have been feeling? No ACTION TAKEN: No action taken DISCHARGE INTRUCTIONS: Your discharge instructions / After Visit Summary (AVS) are important in guiding you through the recovery process. Do you have any questions related to your discharge instructions? No Do you have all the necessary equipment and supplies at home? N/a ACTION TAKEN: No action required I would like to help you schedule a hospital follow-up virtual or telephone visit with your PCP. This is a great way for you to connect with your provider to ensure you have safely transitioned home. If you are agreeable, I will send your request to a template storage clerk who will contact and assist you with that appointment. This will give you an opportunity to ask any questions or address any concerns you may have with your PCP. Inform the patient that if they have any questions or concerns prior to that appointment, to call their PCP's office right away. ACTION TAKEN: No action required, patient already has an appointment scheduled. Your doctor would like us to remind you of the recommendations regarding the coronavirus (Covid19) outbreak: Avoid public places as much as possible. Avoid close contact (within 6 feet) with others you don t live with, especially if they are sick. Stay home if you are sick. Wash your hands regularly for at least 20 seconds with soap and water. Wear a cloth mask in public places to help reduce community spread. Do not go to your Doctor s office unless instructed to do so. For any non-emergency symptoms, call your Doctor s office to get instructions on how to manage (we might recommend a telephone or virtual visit). For emergency symptoms, proceed to Emergency Department as usual but inform them of cough and fever symptoms FLORIDALMA if present (or call on the way if possible). Liudmila Romero RN Order [facility] TCM Home Visit Referral Source of Stratification: [facility] Admission Status: Discharged Readmission Risk Score: 13 CARROL Score: 1 Patient meets program referral criteria: No Patient does not qualify for High Risk TCM Home Visit program due to: Discharged home, does not meet program criteria Mckenzie Hunter RN February 11, 2022 3:12 PM TRANSITIONAL CARE MANAGEMENT (TCM) COMMUNITY MONITORING PROGRAM Provider Action/FYI: Initial TCM outreach but unable to reach LVM Next outreach on 02/12/22 GI sched for 02/18 Pcp sched for 03/07/21 SUMMARY: Pt discharged from [facility] main on 02/10/22. Admitted for: SBO You were transferred for management of SBO. An NG tube was placed for gastric decompression at the outside hospital. Gastroenterology was consulted and their recommendations were followed. DVT prophylaxis was managed by Lovenox 40 mg daily and intermittent compression stockings. Your electrolytes were monitored with daily labs and replaced as needed. Once your pain was controlled with oral medication, you were tolerating a GI soft diet, and your bowels were functioning appropriately, you were deemed fit for discharge. Please follow up with Dr. Morton in the clinic as scheduled. Contact made with patient: No - next outreach attempt will be on next business day Outreach ended documented in this encounter [facility] 02-06-2022 History of Past i llness Narrative Problem Noted Date Resolved Date SBO (small bowel obstruction) 02/06/2022 documented as of this encounter (statuses as of 02/12/2022) [facility]12[facility] History of Past illness Narrative* Problem Noted Date Resolved Date SBO (small bowel obstruction) 02/06/2022 documented as of this encounter (statuses as of 02/20/2022) [facility] History of Past illness Narrative* Problem Noted Date Resolved Date SBO (small bowel obstruction) 02/06/2022 documented as of this encounter (statuses as of 04/19/2022) [facility] History of Past illness Narrative* Problem Noted Date Resolved Date SBO (small bowel obstruction) 02/06/2022 documented as of this encounter (statuses as of 04/21/2022) [facility] History of Past illness Narrative* Problem Noted Date Resolved Date SBO (small bowel obstruction) 02/06/2022 documented as of this encounter (statuses as of 04/21/2022) [facility] History of Present illness Narrative* Randy Bojorquez APRN.[employer] - 01/03/2022 5:24 PM EST Images from the original note were not included. Subjective HPI HPI Aly Guy is a 31 year old female who presents today for CC of left neck pain. This started2 days ago/woke up with pain. Has tried otc medication, ice, tens, heat. Symptoms are worsened by rom of neck. Denies injury. Denies numbness/tingling of left arm. Denies rash. Denies visual changes. .Patient presents with: Neck Pain: left side x 2 days PAST MEDICAL HISTORY Diagnosis Date ASCUS with positive high risk HPV cervical 05/11/2018 Colopscopy benign Crohn disease (HCC) 1999 PAST SURGICAL HISTORY Procedure Laterality Date SECTION HX 03/29/2018 COLONOSCOPY STOMA W/ENDOSCOPIC MUCOSAL RESCJ 2004 small and large resection ALLERGIES Patient has no known allergies. MEDICATIONS venlafaxine ER (EFFEXOR XR) 75 mg 24 hr capsule Take 1 capsule by mouth once daily. HUMIRA PEN 40 mg/0.8 mL Inject 40 mg (0.8 ML) under the skin every 2 weeks (continuation of therapy) predniSONE (DELTASONE) 10 mg tablet Take 4 tabs daily for 3 days, then 2 tabs daily for 3 days, then 1 tab daily for 3 days with food. cyclobenzaprine (FLEXERIL) 10 mg tablet Take 1 tablet by mouth three times daily as needed for muscle spasm. FAMILY HISTORY Adopted: Yes Problem Relation Age of Onset Cancer Father Lung Social History Tobacco Use Smoking status: Former Types: Cigarettes Smokeless tobacco: Never Vaping Use Vaping Use: current everyday user Substances: Nicotine Devices: Refillable tank Substance Use Topics Alcohol use: Not Currently Drug use: Never ROS Objective Blood pressure 122/70, pulse 72, temperature 37.2 C (98.9 F), resp. rate 16, weight 73.5 kg (162 lb), SpO2 98 %. Physical Exam Constitutional: General: She is not in acute distress. Appearance: She is not toxic-appearing or diaphoretic. HENT: Head: Normocephalic and atraumatic. Pulmonary: Effort: Pulmonary effort is normal. No accessory muscle usage or respiratory distress. Musculoskeletal: Arms: Neurological: Mental Status: She is alert and oriented to person, place, and time. Deep Tendon Reflexes: Reflex Scores: Bicep reflexes are 2+ on the right side and 2+ on the left side. ASSESSMENT/PLAN: 1. Neck pain - ICD9: 723.1, ICD10: M54.2 -use medication as prescribed -follow up if symptoms persist, worsen, change Urgent f/u for red flag symptoms. - PREDNISONE 10 MG TABLET - CYCLOBENZAPRINE 10 MG TABLET Agrees to plan Randy Bojorquez APRN.AR [facility] Miscellaneous Notes* Telephone Encounter - Cory Decker RN - 10/28/2021 2:45 PM EDT Patient returned call and given provider's message below with verbalized understanding. Patient agreeable. * Telephone Encounter - Ford Brower LPN - 10/28/2021 2:33 PM EDT Left message for patient to call office. * Telephone Encounter - Cory Parkinson PA-C - 10/28/2021 1:51 PM EDT Yes, as we discussed, there may be some adjustment over the first few weeks. Try to stick it out unless severe- these usually improve. If too bothersome, let me know. We can something different. Thanks, Glen Parkinson PA-C * Telephone Encounter - Nilsa Mckeon RN - 10/28/2021 8:55 AM EDT Patient calls and states that she started taking Effexor at 6 pm on 10/24/2021. Patient has been taking at 6 pm every day since. Patient reports that she has had heightened anxiety, shakiness, [place], and is lethargic at times. Patient states that she goes in patterns of having energy then not having energy. Patient asking if this is normal side effects of medication? Patient asking if she should continue to take medication? Please review and advise, Nilsa Mckeon RN [facility] Instructions* Patient Instructions* Cory Parkinson PA-C - 10/25/2021 4:28 PM EDT Venlafaxine (Patient Education - Adult Medication) You must carefully read the Consumer Information Use and Disclaimer below in order to understand and correctly use this information Pronunciation (brayd la FAX een) Brand Names: USEffexor XR Brand Names: [place]ACT Venlafaxine XR; APO-Venlafaxine XR; Auro-Venlafaxine XR; DOM-Venlafaxine XR;Effexor XR; GD-Venlafaxine XR [DSC]; M-Venlafaxine XR; MYLAN- Venlafaxine XR [DSC]; PMS-Venlafaxine XR; RAN-Venlafaxine XR; ROCÍO-Venlafaxine XR; SANDOZ Venlafaxine XR; TEVA-Venlafaxine XR; VenlafaxineXR Warning Drugs like this one have raised the chance of suicidal thoughts or actions in children and young adults. The risk may be greater in people who have had these thoughts or actions in the past. All people who take this drug need to be watched closely. Call the doctor right away if signs like low mood (depression), nervousness, restlessness, grouchiness, panic attacks, or changes in mood or actions are new or worse. Call the doctor right away if any thoughts or actions of suicide occur. This drug is not approved for use in children. Talk with the doctor. What is this drug used for? It is used to treat low mood (depression). It is used to treat anxiety. It is used to treat panic attacks. It may be given to you for other reasons. Talk with the doctor. What do I need to tell my doctor BEFORE I take this drug? If you have an allergy to venlafaxine or any other part of this drug. If you are allergic to any drugs like this one, any other drugs, foods, or other substances. Tell your doctor about the allergy and what signs you had, like rash; hives; itching; shortness of breath;wheezing; cough; swelling of face, lips, tongue, or throat; or any other signs. If you have high blood pressure. If you are taking a weight loss drug. If you are taking any of these drugs: Linezolid or methylene blue. If you have taken certain drugs for depression or Parkinson's disease in the last 14 days. This includes isocarboxazid, phenelzine, tranylcypromine, selegiline, or rasagiline. Very high blood pressure may happen. If you are breast-feeding or plan to breast-feed. This is not a list of all drugs or health problems that interact with this drug. Tell your doctor and pharmacist about all of your drugs (prescription or OTC, natural products, vitamins) and health problems. You must check to make sure that it is safe for you to take this drug with all of your drugs and health problems. Do not start, stop, or change the dose of any drug withoutchecking with your doctor. What are some things I need to know or do while I take this drug? All products: Tell all of your health care providers that you take this drug. This includes your doctors, nurses,pharmacists, and dentists. Avoid driving and doing other tasks or actions that call for you to be alert until you see how thisdrug affects you. Do not stop taking this drug all of a sudden without calling your doctor. You may have a greater risk of side effects. If you need to stop this drug, you will want to slowly stop it as ordered by your doctor. High blood pressure has happened with this drug. Have your blood pressure checked as you have been told by your doctor. Avoid drinking alcohol while taking this drug. Talk with your doctor before you use other drugs and natural products that slow your actions. This drug may raise the chance of bleeding. Sometimes, bleeding can be life- threatening. Talk with the doctor. Some people may have a higher chance of eye problems with this drug. Your doctor may want you to have an eye exam to see if you have a higher chance of these eye problems. Call your doctor right awayif you have eye pain, change in eyesight, or swelling or redness in or around the eye. Low blood sodium levels may happen with this drug. In very bad cases, this can be deadly. Talk withthe doctor. High cholesterol has happened with this drug. If you have questions, talk with the doctor. This drug may affect certain lab tests. Tell all of your health care providers and lab workers thatyou take this drug. If you are 65 or older, use this drug with care. You could have more side effects. Use with care in children. Talk with the doctor. This drug may affect growth in children and teens in some cases. They may need regular growth checks. Talk with the doctor. Tell your doctor if you are or plan on getting . You will need to talk about the benefits and risks of using this drug while you are . Taking this drug in the third trimester of may lead to some health problems in the . Talk with the doctor. Extended-release capsules: You may see parts of this drug in your stool. This is normal and not a cause for concern. Extended-release tablets: You may see the tablet shell in your stool. This is normal and not a cause for concern. What are some side effects that I need to call my doctor about right away? WARNING/CAUTION: Even though it may be rare, some people may have very bad and sometimes deadly side effects when taking a drug. Tell your doctor or get medical help right away if you have any of thefollowing signs or symptoms that may be related to a very bad side effect: Signs of an allergic reaction, like rash; hives; itching; red, swollen, blistered, or peeling skin with or without fever; wheezing; tightness in the chest or throat; trouble breathing, swallowing, ortalking; unusual hoarseness; or swelling of the mouth, face, lips, tongue, or throat. Signs of low sodium levels like headache, trouble focusing, memory problems, feeling confused, weakness, seizures, or change in balance. Signs of bleeding like throwing up or coughing up blood; vomit that looks like coffee grounds; blood in the urine; black, red, or tarry stools; bleeding from the gums; abnormal vaginal bleeding; bruises without a cause or that get bigger; or bleeding you cannot stop. Signs of high blood pressure like very bad headache or dizziness, passing out, or change in eyesight. Seizures. Chest pain or pressure. Shortness of breath. Cough. Bone pain. Sex problems like lowered interest in sex or ejaculation problems. A severe and sometimes deadly problem called serotonin syndrome may happen. The risk may be greaterif you also take certain other drugs. Call your doctor right away if you have agitation; change in balance; confusion; hallucinations; fever; fast or abnormal heartbeat; flushing; muscle twitching orstiffness; seizures; shivering or shaking; sweating a lot; severe diarrhea, upset stomach, or throwi ng up; or very bad headache. What are some other side effects of this drug? All drugs may cause side effects. However, many people have no side effects or only have minor sideeffects. Call your doctor or get medical help if any of these side effects or any other side effects bother you or do not go away: Trouble sleeping. Feeling nervous and excitable. Anxiety. Weight loss. Not hungry. Feeling tired or weak. Feeling sleepy. Dizziness. Shakiness. Headache. Sweating a lot. Upset stomach. Constipation. Gas. Dry mouth. Strange or odd dreams. Yawning. These are not all of the side effects that may occur. If you have questions about side effects, call your doctor. Call your doctor for medical advice about side effects. You may report side effects to your national health agency. How is this drug best taken? Use this drug as ordered by your doctor. Read all information given to you. Follow all instructionsclosely. All products: Take this drug with food. Take this drug at the same time of day. To gain the most benefit, do not miss doses. Keep taking this drug as you have been told by your doctor or other health care provider, even if you feel well. Extended-release capsules: Swallow whole. Do not crush, chew, or dissolve the capsule or its contents. You may sprinkle contents of capsule on applesauce. Do not chew. Swallow right away and follow withcool water. Extended-release tablets: Swallow whole. Do not chew, break, or crush. Take with a full glass of water. What do I do if I miss a dose? Take a missed dose as soon as you think about it. If it is close to the time for your next dose, skip the missed dose and go back to your normal time. Do not take 2 doses at the same time or extra doses. How do I store and/or throw out this drug? Store at room temperature. Store in a dry place. Do not store in a bathroom. Keep all drugs in a safe place. Keep all drugs out of the reach of children and pets. Throw away unused or drugs. Do not flush down a toilet or pour down a drain unless you are told to do so. Check with your pharmacist if you have questions about the best way to throw out drugs. There may be drug take-back programs in your area. General drug facts If your symptoms or health problems do not get better or if they become worse, call your doctor. Do not share your drugs with others and do not take anyone else's drugs. Keep a list of all your drugs (prescription, natural products, vitamins, OTC) with you. Give this list to your doctor. Talk with the doctor before starting any new drug, including prescription or OTC, natural products,or vitamins. Some drugs may have another patient information leaflet. If you have any questions about this drug,please talk with your doctor, nurse, pharmacist, or other health care provider. If you think there has been an overdose, call your poison control center or get medical care right away. Be ready to tell or show what was taken, how much, and when it happened. Last Reviewed Date 2018-05-30 SLEEP HYGIENE Steps to Improve Your sleep Maintain a regular sleep-wake cycle 7 days a week. Bedtime should not vary more than 1 hour from day to day. Go to bed ONLY when you are sleepy. Aim for at least 8 hours of sleep which has been identified as the optimal amount for all adults. Maintain a regular schedule for meals, medications, chores and sleep as much as possible. Limit or wean completely off any stimulants, such as caffeine, nicotine, energy drinks, and OTC decongestant medications which can effect sleep efficiency. Caffeine exerts its effect for 12-16 hours,so avoid use within that time period before sleep. Do not use nicotine products withing 4-6 hours of sleeping. Avoid taking naps. If you do nap, try to limit is to less than 1 hour. Don't lay in bed longer than 20-30 minutes without sleeping. Get up and do something sedentary unitl you feel tired like folding clothes, reading, listening to relaxing music or meditation. Minimize excessive light, noise, or extremes of temperature in the sleep environment. Minimize distractions as much as possible such as pets, children, un-silenced phones, light or TV noise in the bedroom. Move the alarm clock away from your bed so that you are not tempted to look at it. Don't eat a large meal within a few hours of bedtime. Don't use alcohol to induce sleep or in late evening hours as it can cause awakenings later in the night Don't exercise vigorously within fours of sleep. Regular exercise earlier in the day will help withoverall sleep improvement. Limit television to an hour a day. Television viewing actually decreases the REM (most restful) portion of your sleep cycle. Avoid screen time in the two hours before sleep. This includes television, tablets, computer screens and cell-phones. The blue light from the devices mimics sunlight and activates wakefulness. Avoid using your bed as a recreational area for reading or television. The bed should be reserved for two things, and one of those is sleep. Almost all sleep-aids are sedatives. While sedatives make cause you to sleep, they actually interfere with stage 4 deep sleep which is the reparative stage for brain stress. Chronic use of sedatives for an unknown reason increases all cause mortality and shorter life span. OTC herbal supplements such as Valerian Root and Kava Kava have shown some benefit in sleep induction without hang over. Melatonin has been sown to help some people and is also not a sedative. The recommended dose for melatonin in adult is 1/2mg one hour prior to bedtime. Melatonin regulates sleep cycle and larger doses may cause activation rather than sleep. Mindfulness practice has been shown to improve deep sleep. There are many internet source and apps to help guidance in this habit. See below for guidance in this practice. Relaxation - Deep Breathing Take a Time-Out This technique relieves tension by inhaling deeply and exhaling slowly. You can use this anywhere, anytime! Try practicing this technique 3-4 times each day and then, whenever you begin to feel tense. Now, get in a comfortable position 1. Close your eyes, inhale slowly and deeply through your nose as you count silently: In, 2, 3, 4. Notice how your stomach expands first, then your rib cage, and finally your upper chest. 2. Now exhale slowly through your mouth as you count silently: Out, 2, 3, 4, 5, 6. Pretend you're breathing out through a straw to lengthen the time it takes you to exhale. 3. Let your shoulders drop slightly as your upper chest, ribcage, and stomach gently deflate. 4. Repeat this exercise four or five times. A few tips: o Practice makes perfect. It will take time for you to practice this while you are not significantly stressed, before you feel like it is working well when you are stressed. o Use these breathing exercises for as long as you need to during stressful periods. You may vary the rhythm, but always exhale for 2 to 4 seconds longer than you inhale. o If you feel light-headed or fingers tingle, you may be breathing too deeply or too fast. Reduce the depth and speed of your breathing, or breathe into a paper bag until the feeling goes away. Guided Imagery - Picture Yourself Relaxed! Another method of relaxation is mental imagery or clearing your mind. How would you like to take a mental vacation? Well, you can if you let your imagination be your guide. 1. Begin by focusing on your breathing. Spend a few minutes breathing slowly and smoothly. 2. As you breathe, slowly count backward from 5, sinking deeper and deeper into a state of relaxation. Say to yourself, I feel deeply relaxed. 3. Next, imagine a pleasant place that you can return to whenever you need relaxation - for example, a warm, quiet beach or a tranquil, fragrant garden. Close your eyes to help you concentrate. 4. Experience the place with all your senses - sight, touch, smell, hearing and taste. Remain there for about 5 minutes or longer, depending on the time you need for pain relief. o Let your imagination run free. Try to name the colors you see. Or trace the shapes of the flowersblooming in the garden. Breathe in the sweet fragrance of the blossoms, listen to the birds chirping, and feel the sun warm your skin. Now, sip a cool beverage before you step through the garden and greet a friend. 5. Slowly let the image you've chosen fade from the center of your attention as you focus again on your breathing. Maintain a relaxed feeling. When you feel ready, count slowly to 5 and open your eyes. Progressive Muscle Relaxation - Identifying and Releasing Tension No matter where you are, you can relax your muscles with a technique called progressive muscle relaxation. This technique helps to relieve the muscle tension that accompanies stress. By learning to tense and relax your muscles one by one, you'll find you can relax your entire body. Here's how: 1. Get comfortable, and close your eyes. Now, staring at the top of your body, tense your forehead and face. Do you notice how these muscles feel tight and strained? Hold this tension for 5 to 10 seconds. 2. Next, relax your forehead and face. Do you notice the relief you feel? Hold and enjoy this relaxation for 20 to 25 seconds. 3. Now work toward your feet. First, tense and relax your jaw muscles. Proceed to the muscle in each shoulder, arm and hand (first the right side, then the left). Move on to your stomach, buttocks, each thigh, each lower leg (one at a time), and finally to each ankle and foot. 4. If you have trouble relaxing some muscles, or if the tension brings on pain, try gently massaging that body part until the muscle relax and feel comfortable. 5. To complete the exercise, open your eyes, stretch, and relax your entire body. Take a few deep breaths as if you are waking up from a deep sleep. Don't engage in any activity until you are alert. As you learn relaxation techniques, you'll become more aware of muscle tension and other physical sensations of stress. Once you know what the stress response feels like, you can make a conscious effort to practice a relaxation technique the moment you start to feel stress symptoms. This can prevent stress from spiraling out of control. Remember that relaxation techniques are skills. And as with any skill, your ability to relax improves with practice. Be patient with yourself - don't let your effort to practice relaxation techniquesbecome yet another stressor. [facility] History of Present illness Narrative* Cory Parkinson PA-C - 10/25/2021 4:00 PM EDT 31 year old female with hx Crohn's disease c/o wants to discuss mild anxiety. Was on anxiety medications as a teenager. Stopped into adulthood. Feels fog brain, thinks of a lot of things at once Catches herself over tires, stimulated on something less productive than other things. Constant feeling. Feels would help with productivity. 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 Mother says she over thinks about everything. Over thinks everything Tired ness , fatigue from over thinking. Son has anxiety, mirrors his when he's anxious. Notes she holds her breath a lot, notes especially while driving. Caffeine: energy drinks x 2, and coffee x 1 ETOH: none Marijuana, illicit drugs: no. Sleep: 5h Adopted. Thinks mom may have an array of mental issues, talked on phone once. Adoptive father from heart failure at her age of [age]. Single mom Works at [employer] FAMILY HISTORY Adopted: Yes Problem Relation Age of Onset Cancer Father Lung PAST MEDICAL HISTORY Diagnosis Date ASCUS with positive high risk HPV cervical 05/11/2018 Colopscopy benign Crohn disease (HCC) 1999 PAST SURGICAL HISTORY Procedure Laterality Date SECTION HX 03/29/2018 COLONOSCOPY STOMA W/ENDOSCOPIC MUCOSAL RESCJ 2005 small and large resection Social History Tobacco Use Smoking status: Some Days Smokeless tobacco: Never Tobacco comments: using e cigarrette. 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 1 Syringe 3 cetirizine (ZYRTEC) 10 mg tablet Take 1 tablet by mouth once daily. (Patient not taking: Reported on 11/20/2020 ) 30 tablet 0 No current facility-administered medications for this visit. PNEUMOCOCCAL(1 - PCV) Never done DEPRESSION SCREENING Never done HIV SCREENING Never done SHINGRIX VACCINE(1 of 2) Never done COVID-19 VACCINE(3 - Pfizer risk series) due on 12/14/2020 EXAM: BP 118/78 Pulse 74 Temp 36.8 C (98.2 F) (Left Tympanic) Resp 16 Wt 73.5 kg (162 lb) LMP 08/17/2020 SpO2 100% BMI 31.64 kg/m Pleasant well-appearing slightly overweight adult woman here with [id number] son who is quite delightful, in no acute distress. Alert and oriented all spheres. Normal affect and cognition. Speech normal. No deficits to learning or comprehension. Goal oriented. Easy rapport. Skin warm, dry, pink to lips and nailbeds. Normal turgor. Respirations regular and unlabored. Extrem: no clubbing or cyanosis. Edema: none. Extremities are warm and pink with prompt capillary refill. ASSESSMENT/PLAN: 1. Adjustment disorder with anxiety - ICD9: 309.24, ICD10: F43.22 Discussed options for behavioral modification therapy, counseling, reviewed mindfulness practice, steps. Reviewed new medication with SNRI, box warnings, common side effects, need to taper on discontinuation over 2 to 3 weeks to avoid side effects. Patient would like to proceed. Recommend follow-up in 4 weeks to review - VENLAFAXINE ER 37.5 MG CAPSULE,EXTENDED RELEASE 24 HR Cory Parkinson PA-C documented in this [facility]06-01-2022 Miscellaneous Notes* Telephone Encounter - Janet Vera RN - 07/28/2021 9:36 AM EDT Pending Prescriptions Disp Refills HUMIRA PEN 40 MG/0.8 ML SUBCUTANEOUS KIT 2 Each Sig: Inject 40 mg (0.8 ML) under the skin every 2 weeks (continuation of therapy) YING: Yes Last Visit: 2019 Last Lab: 2019 Janet Vera RN July 28, 2021 9:39 AM [facility] Miscellaneous Notes* Telephone Encounter - Janet Vera RN - 07/22/2021 8:57 AM EDT Received fax from [facility] stating they have approved pt's Humira 40mg/0.8ml. Approved from 08/22/2021-08/22/2022. Auth #: [id number]. Called and left patient a VM message stating her approval. [facility] information in TiVo. Janet Vera RN July 22, 2021 9:02 AM [facility] History of Present illness Narrative* Sabrina Ibrahim (Tech), Tech - 12/12/2019 5:40 PM EDT Radiology Service Progress Note PATIENT NAME: Aly Guy DATE OF SERVICE: December 12, 2019 TIME: 5:45 PM PATIENT IDENTITY VERIFICATION COMPLETED USING TWO (2) IDENTIFIERS: Name and Date of confirmedby patient verbally. FALL SCREENING: Has the patient had 2 falls in the last year or 1 fall with injury or currently using an Ambulatory Assistive Device (Walker, Cane, Wheelchair, Crutches, etc.)? No PATIENT GENDER DATA: Female. status: : No status: NO. PATIENT RELEVANT IMPLANT DATA REVIEWED: Not Applicable RADIOLOGY DEPARTMENT: General X-ray: Exam(s) Completed: Lower Extremity X- Ray(s): Knee, AP / Lat / Tunne / Merchant Bilateral and Wt. Bearing: PERIPHERAL IV DATA: Not applicable SIGNED BY: Brian Gold December 12, 2019 5:45 PM [facility]* Diagnosis Adjustment disorder with anxiety- Primary documented in this encounter [facility] note* Diagnosis Neck pain- Primary Cervicalgia [facility]* Diagnosis Crohn's disease of both small and large intestine with intestinal obstruction (HCC)- Primary Regional enteritis of small intestine with large intestine [facility]* Diagnosis Adjustment disorder with anxiety [facility]* Diagnosis Adjustment disorder with anxiety- Primary Vaping nicotine dependence, non-tobacco product SBO (small bowel obstruction) (HCC) Unspecified intestinal obstruction [facility]* Diagnosis Adjustment disorder with anxiety- Primary Vaping nicotine dependence, non-tobacco product Crohn's disease of small intestine with intestinal obstruction (HCC) Regional enteritis of small intestine SBO (small bowel obstruction) (HCC) Unspecified intestinal obstruction Need for vaccination Need for prophylactic vaccination and inoculation against unspecified single disease Screening for lipid disorders Thyromegaly Goiter, unspecified Screening-pulmonary TB Screening examination for pulmonary tuberculosis Well adult exam Routine general medical examination at a health care facility [facility]* Diagnosis Screening-pulmonary TB- Primary Screening examination for pulmonary tuberculosis [facility]* Diagnosis Screening-pulmonary TB- Primary Screening examination for pulmonary tuberculosis [facility] Diagnosis Screening-pulmonary TB- Primary Screening examination for pulmonary tuberculosis [facility] Diagnosis Screening-pulmonary TB- Primary Screening examination for pulmonary tuberculosis [facility]* Diagnosis Need for vaccination- Primary Need for prophylactic vaccination and inoculation against unspecified single disease [facility]* Diagnosis Need for vaccination- Primary Need for prophylactic vaccination and inoculation against unspecified single disease [facility]* Diagnosis Crohn's disease of small and large intestines with complication (HCC)- [facility] Diagnosis Crohn's disease of both small and large intestine with complication (HCC)- Primary Regional enteritis of small intestine with large intestine Crohn's disease of both small and large intestine with complication (HCC) Regional enteritis of small intestine with large intestine [facility] Diagnosis Crohn's disease of small and large intestines with complication (HCC)- Primary Crohn's disease of both small and large intestine with complication (HCC) Regional enteritis of small intestine with large intestine [facility] Diagnosis Strep pharyngitis- Primary Streptococcal sore throat Crohn's disease of both small and large intestine with complication (HCC) Regional enteritis of small intestine with large intestine [facility] Diagnosis Crohn's disease of both small and large intestine with complication (HCC)- Primary Regional enteritis of small intestine with large intestine Crohn's disease of both small and large intestine with complication (HCC) Regional enteritis of small intestine with large intestine [facility] Diagnosis Crohn's disease of small and large intestines with complication (HCC)- Primary [facility] Diagnosis Crohn's disease of small and large intestines with complication (HCC)- Primary Elevated LFTs Other abnormal blood chemistry [facility] Diagnosis Crohn's disease of small intestine with complication (HCC)- Primary Regional enteritis of small intestine [facility]* Diagnosis Ganglion cyst- Primary Ganglion, unspecified [facility]* Diagnosis Need for vaccination- Primary Need for prophylactic vaccination and inoculation against unspecified single disease [facility]* Diagnosis Encounter for gynecological examination (general) (routine) without abnormal findings- Primary Malaise and fatigue Other malaise and fatigue Class 1 obesity with body mass index (BMI) of 34.0 to 34.9 in adult, unspecified obesity type, unspecified whether serious comorbidity present [facility]* Diagnosis Crohn's disease of both small and large intestine with complication (HCC)- Primary Regional enteritis of small intestine with large intestine [facility] Diagnosis Crohn's disease of both small and large intestine with complication (HCC)- Primary Regional enteritis of small intestine with large intestine [facility]* Diagnosis Crohn's disease of small and large intestines with complication (HCC) [facility]* Diagnosis Thyromegaly Goiter, unspecified [facility] Diagnosis Crohn's disease of both small and large intestine with complication (HCC)- Primary Regional enteritis of small intestine with large intestine [facility]* Diagnosis Muscle strain- Primary Unspecified site of sprain and strain [facility]* Diagnosis Depo-Provera contraceptive status- Primary Surveillance of other previously prescribed contraceptive method Encounter for management and injection of depo-Provera Surveillance of other previously prescribed contraceptive method [facility] Diagnosis Crohn's disease of both small and large intestine with complication (HCC)- Primary Regional enteritis of small intestine with large intestine [facility]* Diagnosis Crohn's disease of both small and large intestine with complication (HCC) Regional enteritis of small intestine with large intestine [facility]* Diagnosis Obesity, unspecified classification, unspecified obesity type, unspecified whether serious comorbidity present- Primary [facility]* Diagnosis Encounter for management and injection of depo-Provera- Primary Surveillance of other previously prescribed contraceptive method [facility] Diagnosis Crohn's disease of both small and large intestine with complication (HCC)- Primary Regional enteritis of small intestine with large intestine [facility] Diagnosis Crohn's disease of both small and large intestine with complication (HCC)- Primary Regional enteritis of small intestine with large intestine [facility] Diagnosis Crohn's disease of both small and large intestine with complication (HCC)- Primary Regional enteritis of small intestine with large intestine [facility]* Diagnosis Pre-operative examination- Primary Preoperative examination, unspecified Nicotine use disorder, F17.2 Tobacco use disorder Small bowel obstruction (HCC) Unspecified intestinal obstruction Crohn's disease of small intestine with complication (HCC) Regional enteritis of small intestine Chest pain, unspecified type Class 1 obesity due to excess calories with serious comorbidity and body mass index (BMI) of 34.0 to 34.9 in adult Anxiety Anxiety state, unspecified Leukocytosis, unspecified type Thyromegaly Goiter, unspecified Encounter for management and injection of depo-Provera- Primary Surveillance of other previously prescribed contraceptive method documented in this encounter [facility]* Diagnosis Pre-operative examination- Primary Preoperative examination, unspecified Nicotine use disorder, F17.2 Tobacco use disorder Small bowel obstruction (HCC) Unspecified intestinal obstruction Crohn's disease of small intestine with complication (HCC) Regional enteritis of small intestine Chest pain, unspecified type Class 1 obesity due to excess calories with serious comorbidity and body mass index (BMI) of 34.0 to 34.9 in adult Anxiety Anxiety state, unspecified Leukocytosis, unspecified type Thyromegaly Goiter, unspecified Crohn's disease of both small and large intestine with complication (HCC)- Primary Regional enteritis of small intestine with large intestine documented in this encounter [facility] note* Diagnosis Pre-operative examination- Primary Preoperative examination, unspecified Nicotine use disorder, F17.2 Tobacco use disorder Small bowel obstruction (HCC) Unspecified intestinal obstruction Crohn's disease of small intestine with complication (HCC) Regional enteritis of small intestine Chest pain, unspecified type Class 1 obesity due to excess calories with serious comorbidity and body mass index (BMI) of 34.0 to 34.9 in adult Anxiety Anxiety state, unspecified Leukocytosis, unspecified type Thyromegaly Goiter, unspecified Well adult exam- Primary Routine general medical examination at a health care facility Small bowel obstruction (HCC) Unspecified intestinal obstruction S/P small bowel resection Other postprocedural status Crohn's disease of both small and large intestine with complication (HCC) Regional enteritis of small intestine with large intestine Nicotine use disorder, F17.2 Tobacco use disorder Anxiety Anxiety state, unspecified History of small bowel obstruction Personal history of other diseases of digestive system Atypical squamous cell changes of undetermined significance (ASCUS) on cervical cytology with positive high risk human papilloma virus (HPV) Cervical high risk human papillomavirus (HPV) DNA test positive Class 1 obesity with body mass index (BMI) of 30.0 to 30.9 in adult, unspecified obesity type, unspecified whether serious comorbidity present documented in this encounter [facility]* Diagnosis Pre-operative examination- Primary Preoperative examination, unspecified Nicotine use disorder, F17.2 Tobacco use disorder Small bowel obstruction (HCC) Unspecified intestinal obstruction Crohn's disease of small intestine with complication (HCC) Regional enteritis of small intestine Chest pain, unspecified type Class 1 obesity due to excess calories with serious comorbidity and body mass index (BMI) of 34.0 to 34.9 in adult Anxiety Anxiety state, unspecified Leukocytosis, unspecified type Thyromegaly Goiter, unspecified Rhus dermatitis- Primary Contact dermatitis and other eczema due to plants (except food) Secondary infection of skin Other specified local infections of skin and subcutaneous tissue documented in this encounter [facility] note* Diagnosis Chronic pain of both knees Acute pain of both knees documented in this encounter [facility] note* Diagnosis Pre-operative examination- Primary Preoperative examination, unspecified Nicotine use disorder, F17.2 Tobacco use disorder Small bowel obstruction (HCC) Unspecified intestinal obstruction Crohn's disease of small intestine with complication (HCC) Regional enteritis of small intestine Chest pain, unspecified type Class 1 obesity due to excess calories with serious comorbidity and body mass index (BMI) of 34.0 to 34.9 in adult Anxiety Anxiety state, unspecified Leukocytosis, unspecified type Thyromegaly Goiter, unspecified Crohn's disease of both small and large intestine with complication (HCC)- Primary Regional enteritis of small intestine with large intestine documented in this encounter [facility] note* Diagnosis Pre-operative examination- Primary Preoperative examination, unspecified Nicotine use disorder, F17.2 Tobacco use disorder Small bowel obstruction (HCC) Unspecified intestinal obstruction Crohn's disease of small intestine with complication (HCC) Regional enteritis of small intestine Chest pain, unspecified type Class 1 obesity due to excess calories with serious comorbidity and body mass index (BMI) of 34.0 to 34.9 in adult Anxiety Anxiety state, unspecified Leukocytosis, unspecified type Thyromegaly Goiter, unspecified Crohn's disease of both small and large intestine with complication (HCC)- Primary Regional enteritis of small intestine with large intestine documented in this encounter [facility] note* Diagnosis Pre-operative examination- Primary Preoperative examination, unspecified Nicotine use disorder, F17.2 Tobacco use disorder Small bowel obstruction (HCC) Unspecified intestinal obstruction Crohn's disease of small intestine with complication (HCC) Regional enteritis of small intestine Chest pain, unspecified type Class 1 obesity due to excess calories with serious comorbidity and body mass index (BMI) of 34.0 to 34.9 in adult Anxiety Anxiety state, unspecified Leukocytosis, unspecified type Thyromegaly Goiter, unspecified Crohn's disease of both small and large intestine with complication (HCC) Regional enteritis of small intestine with large intestine documented in this encounter [facility] note* Diagnosis Pre-operative examination- Primary Preoperative examination, unspecified Nicotine use disorder, F17.2 Tobacco use disorder Small bowel obstruction (HCC) Unspecified intestinal obstruction Crohn's disease of small intestine with complication (HCC) Regional enteritis of small intestine Chest pain, unspecified type Class 1 obesity due to excess calories with serious comorbidity and body mass index (BMI) of 34.0 to 34.9 in adult Anxiety Anxiety state, unspecified Leukocytosis, unspecified type Thyromegaly Goiter, unspecified Encounter for management and injection of depo-Provera- Primary Surveillance of other previously prescribed contraceptive method documented in this encounter [facility] note* Diagnosis Pre-operative examination- Primary Preoperative examination, unspecified Nicotine use disorder, F17.2 Tobacco use disorder Small bowel obstruction (HCC) Unspecified intestinal obstruction Crohn's disease of small intestine with complication (HCC) Regional enteritis of small intestine Chest pain, unspecified type Class 1 obesity due to excess calories with serious comorbidity and body mass index (BMI) of 34.0 to 34.9 in adult Anxiety Anxiety state, unspecified Leukocytosis, unspecified type Thyromegaly Goiter, unspecified Anxiety Anxiety state, unspecified documented in this encounter [facility] note* Diagnosis Pre-operative examination- Primary Preoperative examination, unspecified Nicotine use disorder, F17.2 Tobacco use disorder Small bowel obstruction (HCC) Unspecified intestinal obstruction Crohn's disease of small intestine with complication (HCC) Regional enteritis of small intestine Chest pain, unspecified type Class 1 obesity due to excess calories with serious comorbidity and body mass index (BMI) of 34.0 to 34.9 in adult Anxiety Anxiety state, unspecified Leukocytosis, unspecified type Thyromegaly Goiter, unspecified Crohn's disease of both small and large intestine with complication (HCC)- Primary Regional enteritis of small intestine with large intestine [facility] Diagnosis Pre-operative examination- Primary Preoperative examination, unspecified Nicotine use disorder, F17.2 Tobacco use disorder Small bowel obstruction (HCC) Unspecified intestinal obstruction Crohn's disease of small intestine with complication (HCC) Regional enteritis of small intestine Chest pain, unspecified type Class 1 obesity due to excess calories with serious comorbidity and body mass index (BMI) of 34.0 to 34.9 in adult Anxiety Anxiety state, unspecified Leukocytosis, unspecified type Thyromegaly Goiter, unspecified Crohn's disease of both small and large intestine with complication (HCC) Regional enteritis of small intestine with large intestine documented in this encounter [facility] note* Diagnosis Pre-operative examination- Primary Preoperative examination, unspecified Nicotine use disorder, F17.2 Tobacco use disorder Small bowel obstruction (HCC) Unspecified intestinal obstruction Crohn's disease of small intestine with complication (HCC) Regional enteritis of small intestine Chest pain, unspecified type Class 1 obesity due to excess calories with serious comorbidity and body mass index (BMI) of 34.0 to 34.9 in adult Anxiety Anxiety state, unspecified Leukocytosis, unspecified type Thyromegaly Goiter, unspecified Crohn's disease of both small and large intestine with complication (HCC) Regional enteritis of small intestine with large intestine documented in this encounter [facility] note* Diagnosis Pre-operative examination- Primary Preoperative examination, unspecified Nicotine use disorder, F17.2 Tobacco use disorder Small bowel obstruction (HCC) Unspecified intestinal obstruction Crohn's disease of small intestine with complication (HCC) Regional enteritis of small intestine Chest pain, unspecified type Class 1 obesity due to excess calories with serious comorbidity and body mass index (BMI) of 34.0 to 34.9 in adult Anxiety Anxiety state, unspecified Leukocytosis, unspecified type Thyromegaly Goiter, unspecified Crohn's disease of both small and large intestine with complication (HCC)- Primary Regional enteritis of small intestine with large intestine Anxiety Anxiety state, unspecified Screening for depression documented in this encounter [facility] note* Diagnosis Pre-operative examination- Primary Preoperative examination, unspecified Nicotine use disorder, F17.2 Tobacco use disorder Small bowel obstruction (HCC) Unspecified intestinal obstruction Crohn's disease of small intestine with complication (HCC) Regional enteritis of small intestine Chest pain, unspecified type Class 1 obesity due to excess calories with serious comorbidity and body mass index (BMI) of 34.0 to 34.9 in adult Anxiety Anxiety state, unspecified Leukocytosis, unspecified type Thyromegaly Goiter, unspecified Depo-Provera contraceptive status- Primary Surveillance of other previously prescribed contraceptive method Encounter for surveillance of other contraceptive [facility] Diagnosis Pre-operative examination- Primary Preoperative examination, unspecified Nicotine use disorder, F17.2 Tobacco use disorder Small bowel obstruction (HCC) Unspecified intestinal obstruction Crohn's disease of small intestine with complication (HCC) Regional enteritis of small intestine Chest pain, unspecified type Class 1 obesity due to excess calories with serious comorbidity and body mass index (BMI) of 34.0 to 34.9 in adult Anxiety Anxiety state, unspecified Leukocytosis, unspecified type Thyromegaly Goiter, unspecified Encounter for gynecological examination (general) (routine) without abnormal findings- Primary Encounter for Papanicolaou smear for cervical cancer screening Special screening examination for human papillomavirus (HPV) Long-term use of immunosuppressant medication Encounter for long-term (current) use of other medications Screen for STD (sexually transmitted disease) Screening examination for venereal disease Encounter for surveillance of injectable contraceptive Surveillance of other previously prescribed contraceptive method documented in this encounter [facility] for referral (narrative)* Outpatient Procedure (Routine) - Pending Review Specialty Diagnoses / Procedures Referred By Opal bledsoe Referred To Contact [facility] Diagnoses Crohn's disease of both small and large intestine with intestinal obstruction (HCC) Procedures COLONOSCOPY SCREENING COLONOSCOPY FLX DX W/COLLJ SPEC WHEN PFRMD Tad Morton MD [address] [place] [address] [facility] [address] [place] [id number] Referral ID Status Reason Start Date Expiration Date Visits Requested Visits Authorized [id number] Pending Review Auto-Generat ed Referral 2 02/18/2023 1 1 [facility] for referral (narrative)* Diagnostic Procedure Only (Routine) - Authorized Specialty Diagnoses / Procedures Referred By Opal bledsoe Referred To Contact [facility] Diagnoses Thyromegaly Procedures US THYROID/PARATHYROID US SOFT TISSUE HEAD & NECK REAL TIME IMGE Cory Layton PA-C [address] [place] [address] [facility] Referral ID Status Reason Start Date Expiration Date Visits Requested Visits Authorized [id number] Authorized Auto-Generat ed Referral 05/30/2022 06/29/2023 1 1 [facility] Diagnostic Procedure Only (Routine) - Closed Specialty Diagnoses / Procedures Referred By Opal bledsoe Referred To Contact [facility] Diagnoses Thyromegaly Procedures US THYROID/PARATHYROID US SOFT TISSUE HEAD & NECK REAL TIME IMGE Cory Layton PA-C [address] [place] [address] [place] [address] Referral ID Status Reason Start Date Expiration Date V isits Requested Visits Authorized [id number] Closed Auto-Generate d Referral 05/30/2022 06/29/2023 1 1 [facility] Summary Purpose Family History No Family History Records FoundNo Family History Records FoundNo Family History Records FoundNo Family History Records FoundNo Family History Records FoundNo Family History Records FoundNo Family History Records FoundNo Family History Records FoundNo Family History Records Found Advance Directives No Advanced Directives Records FoundNo Advanced Directives Records FoundNo Advanced Directives Records FoundNo Advanced Directives Records FoundNo Advanced Directives Records FoundNo Advanced Directives Records FoundNo Advanced Directives Records FoundNo Advanced Directives Records FoundNo Advanced Directives Records Found Medications Administered Section Administered Medications Medication Order MAR Action Action Date Dose Rate Site tuberculin skin test (TST-PPD), purified protein derivative, intradermal Intradermal Given 05/30/2022 15:20 EDT 0.1 mL Left Lowe r Forearm Administered Medications Medication Order MAR Action Action Date Dose Rate Site tuberculin skin test (TST-PPD), purified protein derivative, intradermal Intradermal Given 06/08/2022 08:33 EDT 0.1 mL Right ar m Inactive Administered Medications - up to 3 most recent administrations Medication Order MAR Action Action Date Dose Rate Site risankizumab-rzaa 600 mg in D5W 100 mL (SKYRIZI) 600 mg, INTRAVENOUS, Administer over 60 Minutes, ONCE, 1 dose, On 12/26/22 at 1400, exp immediate use (room temp) Refrigerate. Protect From Light. Allow to warm to room temperature prior to start of infusion. New Bag/Syringe/Bottle 12/26/2022 2:16 PM EDT 600 mg Inactive Administered Medications - up to 3 most recent administrations Medication Order MAR Action Action Date Dose Rate Site risankizumab-rzaa 600 mg in D5W 100 mL (SKYRIZI) 600 mg, INTRAVENOUS, Administer over 60 Minutes, ONCE, 1 dose, On Mon01/23/23 at 1500, Approx Total Volume exp 1600 01/23/23 (room temp) Refrigerate. Protect From Light. Allow to warm to room temperature prior to start of infusion. New Bag/Syringe/Bottle 01/23/2023 2:54 PM EST 600 mg Reason for Referral Specialty Diagnoses / Procedures Referred By Opal bledsoe Referred To Contact [facility] Diagnoses Crohn's disease of small and large intestines with complication (HCC) Procedures CONSULT TO COLO-RECTAL SURGERY OFFICE/OUTPATIENT NEW HIGH MDM 60-74 MINUTES Karla Noriega PA-C [address] [place], [place] [id number] Referral ID Status Reason Start Date Expiration Date Visits Requested Visits Authorized [id number] Authorized PCP Requested Referral 08/17/2022 08/17/2023 1 1 Specialty Diagnoses / Procedures Referred By Opal bledsoe Referred To Contact CT IMAGING Diagnoses Crohn's disease of small and large intestines with complication (HCC) Procedures CT ENTEROGRAPHY W IVCON CT ABD & PELVIS W/CONTRAST Karla Noriega PA-C [address] [place] [id number] Referral ID Status Reason Start Date Expiration Date Visits Requested Visits Authorized [id number] Additional Clinical Info Needed Auto-Generat ed Referral 08/17/2022 09/16/2023 1 1 Specialty Diagnoses / Procedures Referred By Contac t Referred To Contact Diagnoses Crohn's disease of both small and large intestine with complication (HCC) Procedures REFER TO PACC - PRE ANESTHESIA CONSULTATION CLINIC OFFICE/OUTPATIENT [facility] 60-74 MINUTES Demetrius France MD [address] [place] [phone] Referral ID Status Reason Start Date Expiration Date Visits Requested Visits Authorized [id number] Authorized PCP Requested Referral 08/25/2022 08/25/2023 1 1 Specialty Diagnoses / Procedures Referred By Contac t Referred To [facility] Diagnoses Crohn's disease of both small and large intestine with complication (HCC) Procedures ECG COMPLETE ECG ROUTINE ECG W/LEAST 12 LDS W/I&R Demetrius France MD [address] [place] [address] [facility] [place] [address] [place] [address] Referral ID Status Reason Start Date Expiration Date Visits Requested Visits Authorized [id number] Pending Review Auto-Generat ed Referral 08/25/2022 08/25/2023 1 1 Specialty Diagnoses / Procedures Referred By Contac t Referred To Contact Orthopedics Diagnoses Ganglion cyst Procedures CONSULT TO ORTHOPAEDICS OFFICE/OUTPATIENT [facility] 60-74 MINUTES Winnie Richards PA-C [address] [place] [id number] Referral ID Status Reason Start Date Expiration Date Visits Requested Visits Authorized [id number] Authorized PCP Requested Referral 11/25/2022 11/25/2023 1 1 Specialty Diagnoses / Procedures Referred By Contac t Referred To Contact CT IMAGING Diagnoses Crohn's disease of small and large intestines with complication (HCC) Procedures CT ENTEROGRAPHY W IVCON CT ABD & PELVIS W/CONTRAST Karla Noriega PA-C [address] [place] [address] Ct Imaging [place] [id number] Referral ID Status Reason Start Date Expiration Date V isits Requested Visits Authorized [id number] Closed Auto-Generat ed Referral Patient Cleared - Admin/Chairm an/Director advise to proceed or did not respond 08/18/2022 10/17/2022 1 1 Specialty Diagnoses / Procedures Referred By Conteriberto t Referred To Contact Diagnoses Anxiety Procedures CONSULT TO PRIMARY CARE BEHAVIORAL HEALTH ADULT OFFICE/OUTPATIENT [facility] 60 MINUTES Roque Pope MD [address] [facility] [place] [address] Referral ID Status Reason Start Date Expiration Date Visits Requested Visits Authorized [id number] Pending Review PCP Requested Referral 10/31/2023 01/29/2024 1 1 Additional Source Comments INFORMATION SOURCE (unrecogn ized section and content) DATE CREATED AUTHOR 08/16/2017 [facility] DATE CREATED AUTHOR AUTHOR'S ORGANIZ ATION 08/22/2017 [facility] DATE CREATED AUTHOR AUTHOR'S ORGANIZ ATION 08/22/2017 [facility] DATE CREATED AUTHOR AUTHOR'S ORGANIZ ATION 08/23/2017 [facility] DATE CREATED AUTHOR AUTHOR'S ORGANIZ ATION 12/31/2017 [facility] DATE CREATED AUTHOR AUTHOR'S ORGANIZ ATION 03/26/2018 [facility] DATE CREATED AUTHOR AUTHOR'S ORGANIZ ATION 04/04/2018 [facility] DATE CREATED AUTHOR AUTHOR'S ORGANIZ ATION 04/28/2022 [place] DATE CREATED AUTHOR AUTHOR'S ORGANIZ ATION 07/03/2024 [facility] Source Comments (unrecognize d section and content) In the event this informatio n is protected by the Federal Confidentiality of Alcohol and Drug Abuse Patient Records regulations: The Federal rules restrict any use of the information to criminally investigate or prosecute any alcohol or drug abuse patient.[facility] CenterIn the event this information is protected by the Federal Confidentiality of Alcohol and Drug Abuse Patient Records regulations: The Federal rules restrict any use of the information to criminally investigate or prosecute any alcohol or drug abuse patient.[facility] CenterIn the event this information is protected by the Federal Confidentiality of Alcohol and Drug Abuse Patient Records regulations: The Federal rules restrict any use of the information to criminally investigate or prosecute any alcohol or drug abuse patient.[facility] CenterIn the event this information is protected by the Federal Confidentiality of Alcohol and Drug Abuse Patient Records regulations: The Federal rules restrict any use of the information to criminally investigate or prosecute any alcohol or drug abuse patient.[facility] CenterIn the event this information is protected by the Federal Confidentiality of Alcohol and Drug Abuse Patient Records regulations: The Federal rules restrict any use of the information to criminally investigate or prosecute any alcohol or drug abuse patient.[facility] CenterIn the event this information is protected by the Federal Confidentiality of Alcohol and Drug Abuse Patient Records regulations: The Federal rules restrict any use of the information to criminally investigate or prosecute any alcohol or drug abuse patient.[facility] CenterIn the event this information is protected by the Federal Confidentiality of Alcohol and Drug Abuse Patient Records regulations: The Federal rules restrict any use of the information to criminally investigate or prosecute any alcohol or drug abuse patient.[facility] CenterIn the event this information is protected by the Federal Confidentiality of Alcohol and Drug Abuse Patient Records regulations: The Federal rules restrict any use of the information to criminally investigate or prosecute any alcohol or drug abuse patient.[facility] CenterIn the event this information is protected by the Federal Confidentiality of Alcohol and Drug Abuse Patient Records regulations: The Federal rules restrict any use of the information to criminally investigate or prosecute any alcohol or drug abuse patient.[facility] CenterIn the event this information is protected by the Federal Confidentiality of Alcohol and Drug Abuse Patient Records regulations: The Federal rules restrict any use of the information to criminally investigate or prosecute any alcohol or drug abuse patient.[facility] CenterIn the event this information is protected by the Federal Confidentiality of Alcohol and Drug Abuse Patient Records regulations: The Federal rules restrict any use of the information to criminally investigate or prosecute any alcohol or drug abuse patient.[facility] CenterIn the event this information is protected by the Federal Confidentiality of Alcohol and Drug Abuse Patient Records regulations: The Federal rules restrict any use of the information to criminally investigate or prosecute any alcohol or drug abuse patient.[facility] CenterIn the event this information is protected by the Federal Confidentiality of Alcohol and Drug Abuse Patient Records regulations: The Federal rules restrict any use of the information to criminally investigate or prosecute any alcohol or drug abuse patient.[facility] CenterIn the event this information is protected by the Federal Confidentiality of Alcohol and Drug Abuse Patient Records regulations: The Federal rules restrict any use of the information to criminally investigate or prosecute any alcohol or drug abuse patient.[facility] CenterIn the event this information is protected by the Federal Confidentiality of Alcohol and Drug Abuse Patient Records regulations: The Federal rules restrict any use of the information to criminally investigate or prosecute any alcohol or drug abuse patient.[facility] CenterIn the event this information is protected by the Federal Confidentiality of Alcohol and Drug Abuse Patient Records regulations: The Federal rules restrict any use of the information to criminally investigate or prosecute any alcohol or drug abuse patient.[facility] CenterIn the event this information is protected by the Federal Confidentiality of Alcohol and Drug Abuse Patient Records regulations: The Federal rules restrict any use of the information to criminally investigate or prosecute any alcohol or drug abuse patient.[facility] CenterIn the event this information is protected by the Federal Confidentiality of Alcohol and Drug Abuse Patient Records regulations: The Federal rules restrict any use of the information to criminally investigate or prosecute any alcohol or drug abuse patient.[facility] CenterIn the event this information is protected by the Federal Confidentiality of Alcohol and Drug Abuse Patient Records regulations: The Federal rules restrict any use of the information to criminally investigate or prosecute any alcohol or drug abuse patient.[facility] CenterIn the event this information is protected by the Federal Confidentiality of Alcohol and Drug Abuse Patient Records regulations: The Federal rules restrict any use of the information to criminally investigate or prosecute any alcohol or drug abuse patient.[facility] CenterIn the event this information is protected by the Federal Confidentiality of Alcohol and Drug Abuse Patient Records regulations: The Federal rules restrict any use of the information to criminally investigate or prosecute any alcohol or drug abuse patient.[facility] CenterIn the event this information is protected by the Federal Confidentiality of Alcohol and Drug Abuse Patient Records regulations: The Federal rules restrict any use of the information to criminally investigate or prosecute any alcohol or drug abuse patient.[facility] CenterIn the event this information is protected by the Federal Confidentiality of Alcohol and Drug Abuse Patient Records regulations: The Federal rules restrict any use of the information to criminally investigate or prosecute any alcohol or drug abuse patient.[facility] CenterIn the event this information is protected by the Federal Confidentiality of Alcohol and Drug Abuse Patient Records regulations: The Federal rules restrict any use of the information to criminally investigate or prosecute any alcohol or drug abuse patient.[facility] CenterIn the event this information is protected by the Federal Confidentiality of Alcohol and Drug Abuse Patient Records regulations: The Federal rules restrict any use of the information to criminally investigate or prosecute any alcohol or drug abuse patient.[facility] CenterIn the event this information is protected by the Federal Confidentiality of Alcohol and Drug Abuse Patient Records regulations: The Federal rules restrict any use of the information to criminally investigate or prosecute any alcohol or drug abuse patient.[facility] CenterIn the event this information is protected by the Federal Confidentiality of Alcohol and Drug Abuse Patient Records regulations: The Federal rules restrict any use of the information to criminally investigate or prosecute any alcohol or drug abuse patient.[facility] CenterIn the event this information is protected by the Federal Confidentiality of Alcohol and Drug Abuse Patient Records regulations: The Federal rules restrict any use of the information to criminally investigate or prosecute any alcohol or drug abuse patient.[facility] CenterIn the event this information is protected by the Federal Confidentiality of Alcohol and Drug Abuse Patient Records regulations: The Federal rules restrict any use of the information to criminally investigate or prosecute any alcohol or drug abuse patient.[facility] CenterIn the event this information is protected by the Federal Confidentiality of Alcohol and Drug Abuse Patient Records regulations: The Federal rules restrict any use of the information to criminally investigate or prosecute any alcohol or drug abuse patient.[facility] CenterIn the event this information is protected by the Federal Confidentiality of Alcohol and Drug Abuse Patient Records regulations: The Federal rules restrict any use of the information to criminally investigate or prosecute any alcohol or drug abuse patient.[facility] CenterIn the event this information is protected by the Federal Confidentiality of Alcohol and Drug Abuse Patient Records regulations: The Federal rules restrict any use of the information to criminally investigate or prosecute any alcohol or drug abuse patient.[facility] CenterIn the event this information is protected by the Federal Confidentiality of Alcohol and Drug Abuse Patient Records regulations: The Federal rules restrict any use of the information to criminally investigate or prosecute any alcohol or drug abuse patient.[facility] CenterIn the event this information is protected by the Federal Confidentiality of Alcohol and Drug Abuse Patient Records regulations: The Federal rules restrict any use of the information to criminally investigate or prosecute any alcohol or drug abuse patient.[facility] CenterIn the event this information is protected by the Federal Confidentiality of Alcohol and Drug Abuse Patient Records regulations: The Federal rules restrict any use of the information to criminally investigate or prosecute any alcohol or drug abuse patient.[facility] CenterIn the event this information is protected by the Federal Confidentiality of Alcohol and Drug Abuse Patient Records regulations: The Federal rules restrict any use of the information to criminally investigate or prosecute any alcohol or drug abuse patient.[facility] CenterIn the event this information is protected by the Federal Confidentiality of Alcohol and Drug Abuse Patient Records regulations: The Federal rules restrict any use of the information to criminally investigate or prosecute any alcohol or drug abuse patient.[facility] CenterIn the event this information is protected by the Federal Confidentiality of Alcohol and Drug Abuse Patient Records regulations: The Federal rules restrict any use of the information to criminally investigate or prosecute any alcohol or drug abuse patient.[facility] CenterIn the event this information is protected by the Federal Confidentiality of Alcohol and Drug Abuse Patient Records regulations: The Federal rules restrict any use of the information to criminally investigate or prosecute any alcohol or drug abuse patient.[facility] CenterIn the event this information is protected by the Federal Confidentiality of Alcohol and Drug Abuse Patient Records regulations: The Federal rules restrict any use of the information to criminally investigate or prosecute any alcohol or drug abuse patient.[facility] CenterIn the event this information is protected by the Federal Confidentiality of Alcohol and Drug Abuse Patient Records regulations: The Federal rules restrict any use of the information to criminally investigate or prosecute any alcohol or drug abuse patient.[facility] CenterIn the event this information is protected by the Federal Confidentiality of Alcohol and Drug Abuse Patient Records regulations: The Federal rules restrict any use of the information to criminally investigate or prosecute any alcohol or drug abuse patient.[facility] CenterIn the event this information is protected by the Federal Confidentiality of Alcohol and Drug Abuse Patient Records regulations: The Federal rules restrict any use of the information to criminally investigate or prosecute any alcohol or drug abuse patient.[facility] CenterIn the event this information is protected by the Federal Confidentiality of Alcohol and Drug Abuse Patient Records regulations: The Federal rules restrict any use of the information to criminally investigate or prosecute any alcohol or drug abuse patient.[facility] CenterIn the event this information is protected by the Federal Confidentiality of Alcohol and Drug Abuse Patient Records regulations: The Federal rules restrict any use of the information to criminally investigate or prosecute any alcohol or drug abuse patient.[facility] CenterIn the event this information is protected by the Federal Confidentiality of Alcohol and Drug Abuse Patient Records regulations: The Federal rules restrict any use of the information to criminally investigate or prosecute any alcohol or drug abuse patient.[facility] CenterIn the event this information is protected by the Federal Confidentiality of Alcohol and Drug Abuse Patient Records regulations: The Federal rules restrict any use of the information to criminally investigate or prosecute any alcohol or drug abuse patient.[facility] CenterIn the event this information is protected by the Federal Confidentiality of Alcohol and Drug Abuse Patient Records regulations: The Federal rules restrict any use of the information to criminally investigate or prosecute any alcohol or drug abuse patient.[facility] CenterIn the event this information is protected by the Federal Confidentiality of Alcohol and Drug Abuse Patient Records regulations: The Federal rules restrict any use of the information to criminally investigate or prosecute any alcohol or drug abuse patient.[facility] CenterIn the event this information is protected by the Federal Confidentiality of Alcohol and Drug Abuse Patient Records regulations: The Federal rules restrict any use of the information to criminally investigate or prosecute any alcohol or drug abuse patient.[facility] CenterIn the event this information is protected by the Federal Confidentiality of Alcohol and Drug Abuse Patient Records regulations: The Federal rules restrict any use of the information to criminally investigate or prosecute any alcohol or drug abuse patient.[facility] CenterIn the event this information is protected by the Federal Confidentiality of Alcohol and Drug Abuse Patient Records regulations: The Federal rules restrict any use of the information to criminally investigate or prosecute any alcohol or drug abuse patient.[facility] CenterIn the event this information is protected by the Federal Confidentiality of Alcohol and Drug Abuse Patient Records regulations: The Federal rules restrict any use of the information to criminally investigate or prosecute any alcohol or drug abuse patient.[facility] CenterIn the event this information is protected by the Federal Confidentiality of Alcohol and Drug Abuse Patient Records regulations: The Federal rules restrict any use of the information to criminally investigate or prosecute any alcohol or drug abuse patient.[facility] CenterIn the event this information is protected by the Federal Confidentiality of Alcohol and Drug Abuse Patient Records regulations: The Federal rules restrict any use of the information to criminally investigate or prosecute any alcohol or drug abuse patient.[facility] CenterIn the event this information is protected by the Federal Confidentiality of Alcohol and Drug Abuse Patient Records regulations: The Federal rules restrict any use of the information to criminally investigate or prosecute any alcohol or drug abuse patient.[facility] CenterIn the event this information is protected by the Federal Confidentiality of Alcohol and Drug Abuse Patient Records regulations: The Federal rules restrict any use of the information to criminally investigate or prosecute any alcohol or drug abuse patient.[facility] CenterIn the event this information is protected by the Federal Confidentiality of Alcohol and Drug Abuse Patient Records regulations: The Federal rules restrict any use of the information to criminally investigate or prosecute any alcohol or drug abuse patient.[facility] CenterIn the event this information is protected by the Federal Confidentiality of Alcohol and Drug Abuse Patient Records regulations: The Federal rules restrict any use of the information to criminally investigate or prosecute any alcohol or drug abuse patient.[facility] CenterIn the event this information is protected by the Federal Confidentiality of Alcohol and Drug Abuse Patient Records regulations: The Federal rules restrict any use of the information to criminally investigate or prosecute any alcohol or drug abuse patient.[facility] CenterIn the event this information is protected by the Federal Confidentiality of Alcohol and Drug Abuse Patient Records regulations: The Federal rules restrict any use of the information to criminally investigate or prosecute any alcohol or drug abuse patient.[facility] CenterIn the event this information is protected by the Federal Confidentiality of Alcohol and Drug Abuse Patient Records regulations: The Federal rules restrict any use of the information to criminally investigate or prosecute any alcohol or drug abuse patient.[facility] CenterIn the event this information is protected by the Federal Confidentiality of Alcohol and Drug Abuse Patient Records regulations: The Federal rules restrict any use of the information to criminally investigate or prosecute any alcohol or drug abuse patient.[facility] CenterIn the event this information is protected by the Federal Confidentiality of Alcohol and Drug Abuse Patient Records regulations: The Federal rules restrict any use of the information to criminally investigate or prosecute any alcohol or drug abuse patient.[facility] CenterIn the event this information is protected by the Federal Confidentiality of Alcohol and Drug Abuse Patient Records regulations: The Federal rules restrict any use of the information to criminally investigate or prosecute any alcohol or drug abuse patient.[facility] CenterIn the event this information is protected by the Federal Confidentiality of Alcohol and Drug Abuse Patient Records regulations: The Federal rules restrict any use of the information to criminally investigate or prosecute any alcohol or drug abuse patient.[facility] CenterIn the event this information is protected by the Federal Confidentiality of Alcohol and Drug Abuse Patient Records regulations: The Federal rules restrict any use of the information to criminally investigate or prosecute any alcohol or drug abuse patient.[facility] CenterIn the event this information is protected by the Federal Confidentiality of Alcohol and Drug Abuse Patient Records regulations: The Federal rules restrict any use of the information to criminally investigate or prosecute any alcohol or drug abuse patient.[facility] CenterIn the event this information is protected by the Federal Confidentiality of Alcohol and Drug Abuse Patient Records regulations: The Federal rules restrict any use of the information to criminally investigate or prosecute any alcohol or drug abuse patient.[facility] CenterIn the event this information is protected by the Federal Confidentiality of Alcohol and Drug Abuse Patient Records regulations: The Federal rules restrict any use of the information to criminally investigate or prosecute any alcohol or drug abuse patient.[facility] CenterIn the event this information is protected by the Federal Confidentiality of Alcohol and Drug Abuse Patient Records regulations: The Federal rules restrict any use of the information to criminally investigate or prosecute any alcohol or drug abuse patient.[facility] CenterIn the event this information is protected by the Federal Confidentiality of Alcohol and Drug Abuse Patient Records regulations: The Federal rules restrict any use of the information to criminally investigate or prosecute any alcohol or drug abuse patient.[facility] CenterIn the event this information is protected by the Federal Confidentiality of Alcohol and Drug Abuse Patient Records regulations: The Federal rules restrict any use of the information to criminally investigate or prosecute any alcohol or drug abuse patient.[facility] CenterIn the event this information is protected by the Federal Confidentiality of Alcohol and Drug Abuse Patient Records regulations: The Federal rules restrict any use of the information to criminally investigate or prosecute any alcohol or drug abuse patient.[facility] CenterIn the event this information is protected by the Federal Confidentiality of Alcohol and Drug Abuse Patient Records regulations: The Federal rules restrict any use of the information to criminally investigate or prosecute any alcohol or drug abuse patient.[facility] CenterIn the event this information is protected by the Federal Confidentiality of Alcohol and Drug Abuse Patient Records regulations: The Federal rules restrict any use of the information to criminally investigate or prosecute any alcohol or drug abuse patient.[facility] CenterIn the event this information is protected by the Federal Confidentiality of Alcohol and Drug Abuse Patient Records regulations: The Federal rules restrict any use of the information to criminally investigate or prosecute any alcohol or drug abuse patient.[facility] CenterIn the event this information is protected by the Federal Confidentiality of Alcohol and Drug Abuse Patient Records regulations: The Federal rules restrict any use of the information to criminally investigate or prosecute any alcohol or drug abuse patient.[facility] CenterIn the event this information is protected by the Federal Confidentiality of Alcohol and Drug Abuse Patient Records regulations: The Federal rules restrict any use of the information to criminally investigate or prosecute any alcohol or drug abuse patient.[facility] CenterIn the event this information is protected by the Federal Confidentiality of Alcohol and Drug Abuse Patient Records regulations: The Federal rules restrict any use of the information to criminally investigate or prosecute any alcohol or drug abuse patient.[facility] CenterIn the event this information is protected by the Federal Confidentiality of Alcohol and Drug Abuse Patient Records regulations: The Federal rules restrict any use of the information to criminally investigate or prosecute any alcohol or drug abuse patient.[facility] CenterIn the event this information is protected by the Federal Confidentiality of Alcohol and Drug Abuse Patient Records regulations: The Federal rules restrict any use of the information to criminally investigate or prosecute any alcohol or drug abuse patient.[facility] CenterIn the event this information is protected by the Federal Confidentiality of Alcohol and Drug Abuse Patient Records regulations: The Federal rules restrict any use of the information to criminally investigate or prosecute any alcohol or drug abuse patient.[facility] CenterIn the event this information is protected by the Federal Confidentiality of Alcohol and Drug Abuse Patient Records regulations: The Federal rules restrict any use of the information to criminally investigate or prosecute any alcohol or drug abuse patient.[facility] CenterIn the event this information is protected by the Federal Confidentiality of Alcohol and Drug Abuse Patient Records regulations: The Federal rules restrict any use of the information to criminally investigate or prosecute any alcohol or drug abuse patient.[facility] CenterIn the event this information is protected by the Federal Confidentiality of Alcohol and Drug Abuse Patient Records regulations: The Federal rules restrict any use of the information to criminally investigate or prosecute any alcohol or drug abuse patient.[facility] CenterIn the event this information is protected by the Federal Confidentiality of Alcohol and Drug Abuse Patient Records regulations: The Federal rules restrict any use of the information to criminally investigate or prosecute any alcohol or drug abuse patient.[facility] CenterIn the event this information is protected by the Federal Confidentiality of Alcohol and Drug Abuse Patient Records regulations: The Federal rules restrict any use of the information to criminally investigate or prosecute any alcohol or drug abuse patient.[facility] CenterIn the event this information is protected by the Federal Confidentiality of Alcohol and Drug Abuse Patient Records regulations: The Federal rules restrict any use of the information to criminally investigate or prosecute any alcohol or drug abuse patient.[facility] CenterIn the event this information is protected by the Federal Confidentiality of Alcohol and Drug Abuse Patient Records regulations: The Federal rules restrict any use of the information to criminally investigate or prosecute any alcohol or drug abuse patient.[facility] Reason for Visit (unrecogniz ed section and content) Reason Onset Date Comments Depo Provera Injection 10/17/2023 Specialty Diagnoses / Procedures Referred By Opal bledsoe Referred To Contact Efficiency Expert / GLOST PLACER Diagnoses Depo Procedures INJECTION Roque Pope MD [address] [place] [address] Wstr, Nurse Efficiency Expert [facility] [address] [place] [address] Referral ID Status Reason Start Date Expiration Date Visits Re quested Visits Authorized [id number] Closed 07/25/2023 10/23/2023 1 1 Reason Comments Medication Authorization Reason Comments Refill Request Reason Comments Anxiety Reason Comments Patient Question Reason Comments Neck Pain left side x 2 days Reason Onset Date Comments Transition Of Care 02/11/2022 Initial tcm o utreach d/c [facility] on 02/10/22, 2nd Attempt. Reason Comments Crohns Reason Comments Compo Caster - Other Reason Onset Date Comments Refill Request 04/20/2022 Reason Comments Follow Up Reason Comments Physical Reason Comments PPD Read Reason Comments Orders Reason Comments Imm/Inj Reason Comments PPD Read Reason Comments Appointment Reason Comments Crohns Reason Comments Returning Patient's Call Reason Comments Patient Update Reason Onset Date Comments Established Patient 08/24/2022 Reason Comments Established Patient Follow up Reason Comments Sore Throat nasal congestion, si nus pressure x 4 days Reason Comments Request for outside medical records ER v isit and EKG Reason Comments Pre-Op Visit Reason Comments Follow Up Phone Call Post Discharge F/U - attempt made. No answer. Reason Comments Crohns Reason Comments Established Patient Reason Comments Derm Problem Bump under skin on l eft middle finger x 3 days Reason Onset Date Comments SPP Inflammatory Conditions - Treatment Referral 12/26/2022 Skyrizi Insurance Authorization 12/26/2022 JENNYFER Submi ssion Pending Reason Comments Non-Chemotherapy Treatment Specialty Diagnoses / Procedures Referred By Opal bledsoe Referred To Contact Diagnoses Crohn's disease of both small and large intestine with complication (HCC) Procedures INJECTION, RISANKIZUMAB-RZAA, INTRAVENOUS, 1 MG Karla Noriega PA-C [address] [place] [id number] Addy [facility] Wstr [address] [place] [address] Referral ID Status Reason Start Date Expiration Date V isits Requested Visits Authorized [id number] Authorized 12/07/2022 03/07/2023 [address] Specialty Diagnoses / Procedures Referred By Contac t Referred To Contact CT IMAGING Diagnoses Crohn's disease of small and large intestines with complication (HCC) Procedures CT ENTEROGRAPHY W IVCON CT ABD & PELVIS W/CONTRAST Karla Noriega PA-C [address] [place], [place] [id number] Ct Imaging [facility] Referral ID Status Reason Start Date Expiration Date V isits Requested Visits Authorized [id number] Closed Auto-Generat ed Referral Patient Cleared - Admin/Chairm an/Director advise to proceed or did not respond 08/18/2022 10/17/2022 1 1 Reason Comments Radiology US Specialty Diagnoses / Procedures Referred By Contac t Referred To Contact US IMAGING Diagnoses Thyromegaly Procedures US THYROID/PARATHYROID US SOFT TISSUE HEAD & NECK REAL TIME IMGE Cory Layton PA-C [address] [place] [id number] Us Imaging [facility] Referral ID Status Reason Start Date Expiration Date V isits Requested Visits Authorized [id number] Closed Auto-Generate d Referral 05/30/2022 06/29/2023 1 1 Reason Comments Appointment Orders Reason Comments right shoulder pain X 6 days-started aft er moving furniture Reason Onset Date Comments Depo Provera Injection 04/26/2023 Reason Onset Date Comments SPP Inflammatory Conditions - Medication Refill 05/03/2023 Ahsanyrizoriana Reason Onset Date Comments Weight Management 06/27/2023 Reason Onset Date Comments SPP Inflammatory Conditions - Medication Refill 06/30/2023 Ahsanyrizi Reason Comments Pre-op Bowel Prep? Reason Onset Date Comments Depo Provera Injection 07/25/2023 Reason Onset Date Comments SPP Inflammatory Conditions - Medication Refill 08/23/2023 Skyrizi OBI - NCA 08/2023 Reason Onset Date Comments SPP Inflammatory Conditions - Follow-up 08/23/19 24 Skyrizi OBI Insurance Authorization 08/23/2023 JENNYFER love Submitted Reason Onset Date Comments SPP Inflammatory Conditions - Medication Refill 10/19/2023 Skyrizi - NCA 08/2023 Reason Comments Wellness Reason Comments lower left leg sore X 1 week Reason Comments Radiology XR Reason Onset Date Comments SPP Inflammatory Conditions - Medication Refill 12/18/2023 Skyrizi OBI Reason Onset Date Comments SPP Inflammatory Conditions - Follow-up 02/15/20 24 Skyrizi OBI Insurance Authorization 02/15/2024 JENNYFER Brock al Submitted (New Insurance) Reason Onset Date Comments Refill Request 02/16/2024 Reason Onset Date Comments Depo Provera Injection 02/27/2024 Reason Onset Date Comments Refill Request 04/03/2024 Reason Comments Insurance Authorization venlafaxine ER Reason Comments Letter No show letter Reason Onset Date Comments Refill Request 05/01/2024 Skyrizi OBI Reason Onset Date Comments Refill Request 05/18/2024 Reason Comments 6 Month Exam Reason Onset Date Comments Depo Provera Injection 05/23/2024 Reason Comments Yearly Exam Reason Comments Forms EMS Start State Christine ege program Care Teams (unrecognized sec tion and content) Electronic Sensing Equipment Assembler Relationship Specialty Start Date End Date Roque Pope MD [address] [place] [address] PCP - General Family Practice 07/19/18 Electronic Sensing Equipment Assembler Relationship Specialty Start Date End Date Roque Pope MD [address], [place] [id number] PCP - General Family Practice 07/19/18 Electronic Sensing Equipment Assembler Relationship Specialty Start Date End Date Roque Pope MD [address], [place] [id number] PCP - General Family Practice 07/19/18 Electronic Sensing Equipment Assembler Relationship Specialty Start Date End Date Roque Pope MD [address], [place] [id number] PCP - General Family Medicine 07/19/18 Electronic Sensing Equipment Assembler Relationship Specialty Start Date End Date Roque Pope MD [address] [facility] [place] [address] PCP - General Family Medicine 07/19/18 Electronic Sensing Equipment Assembler Relationship Specialty Start Date End Date Roque Pope MD [address] [facility] [place] [address] PCP - General Family Medicine 07/19/18 Electronic Sensing Equipment Assembler Relationship Specialty Start Date End Date Roque Pope MD [address] [facility] [place] [address] PCP - General Family Medicine 07/19/18 Electronic Sensing Equipment Assembler Relationship Specialty Start Date End Date Roque Pope MD [address] [facility] [place] [address] PCP - General Family Medicine 07/19/18 Electronic Sensing Equipment Assembler Relationship Specialty Start Date End Date Roque Pope MD [address] [facility] [place] [address] PCP - General Family Medicine 07/19/18 Electronic Sensing Equipment Assembler Relationship Specialty Start Date End Date Roque Pope MD [address] [facility] [place] [address] PCP - General Family Medicine 07/19/18 Electronic Sensing Equipment Assembler Relationship Specialty Start Date End Date Roque Pope MD [address] [facility] [place] [address] PCP - General Family Medicine 07/19/18 Electronic Sensing Equipment Assembler Relationship Specialty Start Date End Date Roque Pope MD [address] [facility] [place] [address] PCP - General Family Medicine 07/19/18 Electronic Sensing Equipment Assembler Relationship Specialty Start Date End Date Roque Pope MD [address] [facility] [place] [address] PCP - General Family Medicine 07/19/18 Electronic Sensing Equipment Assembler Relationship Specialty Start Date End Date Roque Pope MD [address] [facility] [place] [address] PCP - General Family Medicine 07/19/18 Electronic Sensing Equipment Assembler Relationship Specialty Start Date End Date Roque Pope MD [address] [facility] [place] [address] PCP - General Family Medicine 07/19/18 Electronic Sensing Equipment Assembler Relationship Specialty Start Date End Date Roque Pope MD [address] [facility] [place] [address] PCP - General Family Medicine 07/19/18 Electronic Sensing Equipment Assembler Relationship Specialty Start Date End Date Roque Pope MD [address] [facility] [place] [address] PCP - General Family Medicine 07/19/18 Electronic Sensing Equipment Assembler Relationship Specialty Start Date End Date Roque Pope MD [address] [facility] [place] [address] PCP - General Family Medicine 07/19/18 Electronic Sensing Equipment Assembler Relationship Specialty Start Date End Date Roque Pope MD [address] [facility] [place] [address] PCP - General Family Medicine 07/19/18 Electronic Sensing Equipment Assembler Relationship Specialty Start Date End Date Roque Pope MD [address] [facility] [place] [address] PCP - General Family Medicine 07/19/18 Electronic Sensing Equipment Assembler Relationship Specialty Start Date End Date Roque Pope MD [address] [facility] [place] [address] PCP - General Family Medicine 07/19/18 Electronic Sensing Equipment Assembler Relationship Specialty Start Date End Date Roque Pope MD [address] [facility] [place] [address] PCP - General Family Medicine 07/19/18 Electronic Sensing Equipment Assembler Relationship Specialty Start Date End Date Roque Pope MD [address] [place] [address] PCP - General Family Medicine 07/19/18 Electronic Sensing Equipment Assembler Relationship Specialty Start Date End Date Roque Pope MD [address] [place] [address] PCP - General Family Medicine 07/19/18 Electronic Sensing Equipment Assembler Relationship Specialty Start Date End Date Roque Pope MD [address] [place] [address] PCP - General Family Medicine 07/19/18 Electronic Sensing Equipment Assembler Relationship Specialty Start Date End Date Roque Pope MD [address] [place] [address] PCP - General Family Medicine 07/19/18 Electronic Sensing Equipment Assembler Relationship Specialty Start Date End Date Roque Pope MD [address] [place] [address] PCP - General Family Medicine 07/19/18 Electronic Sensing Equipment Assembler Relationship Specialty Start Date End Date Roque Pope MD [address] [place] [address] PCP - General Family Medicine 07/19/18 Electronic Sensing Equipment Assembler Relationship Specialty Start Date End Date Roque Pope MD [address] [place] [address] PCP - General Family Medicine 07/19/18 Electronic Sensing Equipment Assembler Relationship Specialty Start Date End Date Roque Pope MD [address] [facility] [place] [address] PCP - General Family Medicine 07/19/18 Electronic Sensing Equipment Assembler Relationship Specialty Start Date End Date Roque Pope MD [address] [place] [address] PCP - General Family Medicine 07/19/18 Electronic Sensing Equipment Assembler Relationship Specialty Start Date End Date Roque Pope MD [address] [place] [address] PCP - General Family Medicine 07/19/18 Electronic Sensing Equipment Assembler Relationship Specialty Start Date End Date Roque Pope MD [address] [place] [address] PCP - General Family Medicine 07/19/18 Electronic Sensing Equipment Assembler Relationship Specialty Start Date End Date Roque Pope MD [address] [place] [address] PCP - General Family Medicine 07/19/18 Electronic Sensing Equipment Assembler Relationship Specialty Start Date End Date Roque Pope MD [address] [place] [address] PCP - General Family Medicine 07/19/18 Electronic Sensing Equipment Assembler Relationship Specialty Start Date End Date Roque Pope MD [address] [place] [address] PCP - General Family Medicine 07/19/18 Electronic Sensing Equipment Assembler Relationship Specialty Start Date End Date Roque Pope MD [address] [place] [address] PCP - General Family Medicine 07/19/18 Electronic Sensing Equipment Assembler Relationship Specialty Start Date End Date Roque Pope MD [address] [facility] [place] [address] PCP - General Family Medicine 07/19/18 Electronic Sensing Equipment Assembler Relationship Specialty Start Date End Date Roque Pope MD [address] [facility] [place] [address] PCP - General Family Medicine 07/19/18 Electronic Sensing Equipment Assembler Relationship Specialty Start Date End Date Roque Pope MD [address] [facility] [place] [address] PCP - General Family Medicine 07/19/18 Electronic Sensing Equipment Assembler Relationship Specialty Start Date End Date Roque Pope MD [address] [place] [address] PCP - General Family Medicine 07/19/18 Electronic Sensing Equipment Assembler Relationship Specialty Start Date End Date Roque Pope MD [address] [facility] [place] [address] PCP - General Family Medicine 07/19/18 Electronic Sensing Equipment Assembler Relationship Specialty Start Date End Date Roque Pope MD [address] [facility] [place] [address] PCP - General Family Medicine 07/19/18 Electronic Sensing Equipment Assembler Relationship Specialty Start Date End Date Roque Pope MD [address] [facility] [place] [address] PCP - General Family Medicine 07/19/18 Electronic Sensing Equipment Assembler Relationship Specialty Start Date End Date Roque Pope MD [address] [facility] [place] [address] PCP - General Family Medicine 07/19/18 Octavia Max APRN.[employer]INTER AIR[employer]FT [address] [place] [address] Scientist Engineer Family Medicine 02/05/24 Kandice Harman APRN.[employer]INTER AIRCRAFT [address] [facility] [place] [address] Scientist Engineer Family Medicine 02/05/24 Electronic Sensing Equipment Assembler Relationship Specialty Start Date End Date Roque Pope MD [address] [facility] [place] [address] PCP - General Family Medicine 07/19/18 Octavia Max APRN.[employer]INTER [employer]FT [address] [place] [address] Scientist Engineer Family Medicine 02/05/24 Kandice Harman APRN.[employer]INTER [employer]FT [address] [facility] [place] [address] Scientist Engineer Family Medicine 02/05/24 Electronic Sensing Equipment Assembler Relationship Specialty Start Date End Date Roque Pope MD [address] [facility] [place] [address] PCP - General Family Medicine 07/19/18 Octavia Max APRN.PAINTER AIRCRAFT [address] [place] [address] Scientist Engineer Family Medicine 02/05/24 Kandice Harman APRN.PAINTER AIRCRAFT [address] [facility] [place] [address] Scientist Engineer Family Medicine 02/05/24 Electronic Sensing Equipment Assembler Relationship Specialty Start Date End Date Roque Pope MD [address] [facility] [place] [address] PCP - General Family Medicine 07/19/18 Octavia Max APRN.PAINTER AIR[employer]FT [address] [place] [address] Scientist Engineer Family Medicine 02/05/24 Kandice Harman APRN.PAINTER AIRCRAFT [address] [place] [address] Scientist Engineer [facility] Medicine 02/05/24 Electronic Sensing Equipment Assembler Relationship Specialty Start Date End Date Roque Pope MD [address] [place] [address] PCP - General Family Medicine 07/19/18 Octavia Max APRN.PAINTER AIRCRAFT [address] [place] [address] Scientist Engineer Family Medicine 02/05/24 Kandice Harman APRN.PAINTER AIRCRAFT [address] [place] [address] [facility] Electronic Sensing Equipment Assembler Relationship Specialty Start Date End Date Roque Pope MD [address] [place] [address] PCP - General Family Medicine 07/19/18 Octavia Max APRN.PAINTER AIRCRAFT [address] [place] [address] Scientist Engineer Family Medicine 02/05/24 Kandice Harman APRN.PAINTER AIRCRAFT [address] [place] [address] [facility] 02/05/24 Electronic Sensing Equipment Assembler Relationship Specialty Start Date End Date Roque Pope MD [address] [facility] [place] [address] PCP - General Family Medicine 07/19/18 Octavia Max [employer].PAINTER AIRCRAFT [address] [place] [address] [facility] 02/05/24 Kandice Harman [employer].PAINTER [employer]CRAFT [address] [place] [address] [facility] 02/05/24 Electronic Sensing Equipment Assembler Relationship Specialty Start Date End Date Roque Pope MD [address] [place] [address] PCP - General Family Medicine 07/19/18 Octavia Max [employer].PAINTER AIRCRAFT [address] [place] [address] [facility] 02/05/24 Kandice Harman [employer]INTER [employer]FT [address] [place] [address] [facility] 02/05/24 Electronic Sensing Equipment Assembler Relationship Specialty Start Date End Date Roque Pope MD [address] [place] [address] PCP - General Family Medicine 07/19/18 Octavia Max [employer].PAINTER [employer]CRAFT [address] [place] [address] [facility] 02/05/24 Kandice Harman [employer].PAINTER [employer]CRAFT [address] [place], [place] [id number] [facility] 02/05/24 Electronic Sensing Equipment Assembler Relationship Specialty Start Date End Date Roque Pope MD [address] [place], [place] [id number] PCP - General Family Medicine 07/19/18 Octavia Max APRN.PAINTER AIRCRAFT [address] [place], [place] [id number] [facility] 02/05/24 Kandice Harman [employer].PAINTER [employer]CRAFT [address] [place], [place] [id number] [facility] 02/05/24 Active Administered Medications - up to 3 most recent administrations Administered Medications (un recognized section and content) Medication Order MAR Action Action Date Dose Rate Site medroxyPROGESTERone 150 mg injection (DEPO-PROVERA) 150 mg, INTRAMUSCULAR, EVERY 12 WEEKS, 4 doses, First dose on Mon04/24/23 at 0830, Last dose on Mon01/01/24 at 0830, Hazardous Potential Reproductive Risk Drug: Use appropriate PPE. Given 04/26/2023 10:08 AM EST 150 mg Buttocks, Right FOR RECORDS PERTAINING TO PATIENTS WHO ARE OR HAVE BEEN ENROLLED IN A CHEMICAL DEPENDENCY/SUBSTANCEABUSE PROGRAM, SOME INFORMATION MAY BE OMITTED. This clinical summary was aggregated from multiple sources. Caution should be exercised in using it in the provision of clinical care. This summary normalizes information from multiple sources, and as a consequence, information in this document may materially change the coding, format and clinical context of patient data. In addition, data may be omitted in some cases. CLINICAL DECISIONS SHOULD BE BASED ON THE PRIMARY CLINICAL RECORDS. [employer] provides no warranty or guarantee of the accuracy or completeness of information in this document.
[2024-08-09 22:39] VITALS: BP 119/75; PULSE 75; RESP 16; TEMP 36.6; O2SAT 100
== END 2024-08-09 22:40 | disposition home or self-care (01) ==
LOC: ED 22:17
PROVIDERS: Emergency Provider Emergency Medicine; PCP Family Medicine; Visit Provider Emergency Medicine
DX: S50.861A Insect bite (nonvenomous) of right forearm, initial encounter (principal); K50.90 Crohn's disease, unspecified, without complications; F17.290 Nicotine dependence, other tobacco product, uncomplicated; W57.XXXA Bitten or stung by nonvenomous insect and other nonvenomous arthropods, initial encounter
CPT/HCPCS: 99282

== ENCOUNTER 2024-09-15 23:16 | Emergency (ER) | payer OTHER, SELFPAY ==
[2024-09-15 23:16] VITALS: BP 142/88; PULSE 74; RESP 20; TEMP 36.1; O2SAT 100; BMI 32.6
--- NOTE | 2024-09-15 23:39 | EDS_ITS ---
HPI HPI - GI History of Present Illness Chief Complaint: Flank Pain Informant: patient Narrative Narrative: 34-year-old female spontaneous onset of significant pain in her left mid low back couple hours ago that has been constant not colicky, and now has wrapped around her flank to her left upper quadrant. Associated with nausea and vomiting. No fevers or chills. No chest pain, shortness of breath, or recent cough. She has a history of Crohn's but these are unusual symptoms for Crohn's flareups. She admits that she is not currently on Crohn's medications, but she is not having any of her typical symptoms that she typically has with a flareup like right lower quadrant pain. She denies any urinary symptoms or hematuria. No history of kidney stones that she knows of. She states it sort of feels like a muscle pain or something on the inside, but has no activities or injuries recently that would explain 1. [facility] Medical History Crohn's disease Home Medications ?Medication ?Instructions ?Recorded ?Last Taken ?Type adalimumab 40 mg/0.8 mL 40 mg SQ Q14D crohns 7 01/28/22 History subcutaneous syringe kit (Humira) venlafaxine 75 mg capsule,extended 75 mg PO DAILY mood 02/05/22 02/04/22 History release 24 hr lidocaine 5 % topical patch 1 patch topical DAILY #15 ea 07/12/22 Unknown Rx (Lidoderm) naproxen 500 mg tablet (Naprosyn) 500 mg PO BID PRN pa in #20 tabs 07/12/22 Unknown Rx omeprazole 40 mg capsule,delayed 40 mg PO DAILY #30 ca ps 07/13/22 Unknown Rx release sucralfate 100 mg/mL oral 10 ml PO BID PRN Epigastric pain 07/13/22 Unknown Rx suspension (Carafate) #200 mL oxycodone-acetaminophen 5 mg-325 1 tab PO Q6H PRN pain 3 days #12 08/29/22 Unknown Rx mg tablet (Percocet) tabs prednisone 50 mg tablet 50 mg PO DAILY #5 tabs 08/29 Unknown Rx cyclobenzaprine 10 mg tablet 10 mg PO TID PRN Muscle S pasm #20 05/19/23 Unknown Rx TABLETS hydrocodone-acetaminophen 5-325mg 1 tab PO Q4H PRN PRN Pain 2 days 05/19/23 Unknown Rx 5mg-325mg #10 TABLETS naproxen 500 mg tablet (Naprosyn) 500 mg PO BID PRN pa in #20 tabs 05/19/23 Unknown Rx Allergy/AdvReac Type Severity Reaction Status Date / Time No Known Allergies Allergy Verified 09/15/24 23:16 Family History no significant family his Surgical History History of section History of bowel resection Social History Smoking Status: Current every day smoker tobacco type: e-cigarettes ROS ROS ED Constitutional Constitutional ED: Denies chills or fever(s) Eyes Eyes: Denies change in vision or diplopia ENT ENT ED: Denies rhinorrhea or sore throat Cardiovascular Cardiovascular: Denies chest pain or palpitations Respiratory/Chest Respiratory/Chest: Denies cough or dyspnea Gastrointestinal Gastrointestinal: Reports abdominal pain, nausea and vomiting; Denies diarrhea Genitourinary Genitourinary ED: Denies dysuria or hematuria Musculoskeletal Musculoskeletal: Reports back pain; Denies neck pain Integumentary Denies abscess or rash Neurologic Neurologic: Denies headache(s), paresthesias or weakness Psychiatric Psychiatric: Denies anxiety or suicidal thoughts EXAM Physical Exam Const Vital Signs: 09/15/24 23:16 09/16/24 01:16 Temperature 97 F L Temperature Source Temporal Pulse Rate 74 65 Respiratory Rate 20 H 16 Blood Pressure 142/88 H 112/64 Blood Pressure Mean 106 80 Pulse Ox 100 98 Oxygen Delivery Method Room Air Room Air Positive well nourished and well developed General Appearance ED: well developed and NAD HEENT Reports moist mucous membranes normocephalic and atraumatic Eyes PERRL and EOMs intact bilaterally Neck full ROM and supple Resp normal respiratory effort and clear to auscultation bilaterally Cardio regular rate, regular rhythm and no murmurs GI non-distended GI Narrative: Mildly tender left upper quadrant no guarding rebound or pulsatile mass. Otherwise benign abdomen. Auscultation: normoactive bowel sounds Palpation: soft Back/Spine General Back: CVA tenderness left (Normal inspection no tenderness on right) and other FROM Extremity normal to inspection General Extremety ED: Negative for edema, pulses abnormal or tenderness General Extremity: Negative for edema or pulses abnormal Neuro oriented x3, CN's II-XII intact bilaterally and no sensory deficits noted Sensorium / Orientation: awake and alert Motor Exam: strength 5/5 throughout Skin no rashes or lesions noted and no wounds MDM MDM MDM Narrative Medical decision making narrative: Differential here includes kidney stone, intraluminal GI discomfort or colitis which can hurt in the back and the left side of the abdomen/pelvis, left lower lobe pneumonia although she does not have a cough or pulmonary symptoms, or pyelonephritis. Less likely to be ectopic, her is negative. Labs obtained and they are normal. Urinalysis shows blood but no obvious signs of infection. Center for CT flank, reviewed the images, as well as the report which I agree with. Does not show anything to be inflamed, basically nothing acute and no stones or obstructive uropathy or signs of perinephric stranding. Patient was initially given Toradol and Zofran on reevaluation she states she does not feel a ton better but she appears well and her vital signs are normal. Prior to discharge and then offer her a dose of morphine as long she is not driving, in addition to Mylanta, dicyclomine in case this is some type of bowel spasm or intraluminal discomfort. Peptic ulcer disease is not out of the differential but thought to be less likely since the symptoms are acute and there is no sign clinically or on ancillaries of bleeding. Stable for discharge and close a patient follow-up. Lab Data Attestation: I reviewed the patient's lab results. Labs: Laboratory Results - last 24 hr 09/15/24 09/15/24 23:27 23:58 WBC 8.8 RBC 4.84 Hgb 14.0 Hct 41.3 MCV 85.3 MCH 28.9 MCHC 33.9 RDW Std Deviation 41.1 RDW Coeff of Ila 13.2 Plt Count 329 MPV 8.9 Immature Gran % (Auto) 0.800 Neut % (Auto) 51.2 Lymph % (Auto) 39.1 [place] % (Auto) 7.1 Eos % (Auto) 1.3 Baso % (Auto) 0.5 Absolute Neuts (auto) 4.5 Absolute Lymphs (auto) 3.43 Nucleated RBC % 0 Sodium 139 Potassium 4.4 Chloride 107 Carbon Dioxide 18.6 L Anion Gap 14 BUN 9 Creatinine 0.85 Estim Creat Clear Calc 84.20 Est GFR (MDRD) Non-Af 92 BUN/Creatinine Ratio 10.2 Glucose 82 Calcium 9.5 Serum , Qual NEGATIVE Urine Color Yellow Urine Clarity Clear Urine pH 6.0 Ur Specific [place] 1.025 Urine Protein 15 H Urine Glucose (UA) Normal Urine Ketones Negative Urine Occult Blood 10 H Urine Nitrite Negative Urine Bilirubin Negative Urine Urobilinogen Normal Ur Leukocyte Esterase Negative Urine RBC 0-5 SEEN Urine WBC 0-5 SEEN Ur Squamous Epith Cells 5-10 SEEN Urine Bacteria 2+ Urine Mucus 0 SEEN Radiography Diagnostic Testing: Clinical Impression(s) from Imaging Studies Abdomen/Pelvis CT 09/16/24 01:16 IMPRESSION: No acute findings Reading Location: [place] [id number] Discharge Plan Triage Chief Complaint: Flank Pain ED Provider: Massimo Quinonez Dx/Rx/DC Orders Clinical Impression: Acute left flank pain, Left upper quadrant pain Instructions: ED Flank Pain, Uncertain Cause Prescriptions: No Action Humira 40 MG/0.8 ML syringe kit 40 mg SQ Q14D Patient Comments: CHRONS venlafaxine 75 mg capsule,extended release 24hr 75 mg PO DAILY Patient Comments: TAKE 1 CAPSULE BY MOUTH ONCE DAILY naproxen [Naprosyn] 500 mg tablet 500 mg PO BID PRN (Reason: pain) Qty: 20 0RF lidocaine [Lidoderm] 5 % adhesive patch,medicated 1 patch topical DAILY Qty: 15 0RF Rx Instructions: leave on most painful area for up to 12 hrs omeprazole 40 mg capsule,delayed release(DR/EC) 40 mg PO DAILY Qty: 30 0RF sucralfate [Carafate] 100 mg/mL suspension 10 ml PO BID PRN (Reason: Epigastric pain) Qty: 200 0RF prednisone 50 mg tablet 50 mg PO DAILY Qty: 5 0RF oxycodone-acetaminophen [Percocet] 5-325 mg tablet 1 tab PO Q6H PRN (Reason: pain) 3 Days Qty: 12 0RF cyclobenzaprine [cyclobenzaprine] 10 mg tablet 10 mg PO TID PRN (Reason: Muscle Spasm) Qty: 20 0RF hydrocodone-acetaminophen [hydrocodone-acetaminophen] 5-325 mg tablet 1 tab PO Q4H PRN PRN (Reason: Pain) 2 Days Qty: 10 0RF naproxen [Naprosyn] 500 mg tablet 500 mg PO BID PRN (Reason: pain) Qty: 20 0RF Primary Care Provider: Roque Lozano Referrals: Roque Lozano MD [Primary Care Provider] - 1 Week if not improving Print Language: Chinese Disposition Disposition: Home, Self Care
[2024-09-16 00:02] LABS: Mucous, Urine 0 SEEN /hpf (<or=2+)
[2024-09-16 00:07] LABS: Color, Urine Yellow (Yellow); Glucose, Dipstick Normal (Normal); Ketone-Dipstick Negative (Negative); Leukocyte Esterase-Dipstick Negative /ul (Negative); Nitrite-Dipstick Negative (Negative); Occult Blood-Urine 10 /ul (Negative); Protein-Dipstick 15 mg/dl (Negative); Specific Gravity, Urine 1.025 (1.002-1.030); Urine Bilirubin Dipstick Negative (Negative)
--- OUTSIDE RECORDS SUMMARY | 2024-09-16 00:07 | XMS RPT_ITS | CCD ---
Author Organization [facility] Care Team Providers Care Harvest Worker Field Crop Name Role Phone CHARISSA PELLETIERFacundo Unavailable Unavailable PHYSICIAN, NONE Unavailable Unavailable OLGA PARKER Unavailable Unavailable PHYSICIAN, NONE Unavailable Unavailable EDMUND METZGER Unavailable Unavailable PHYSICIAN, NONE Unavailable Unavailable MYKE HARKINS Unavailable Unavailable PHYSICIAN, NONE Unavailable Unavailable REFERRING, CARLOS WO ID~[id number] Unavailable Unava ilable PHYSICIAN, NONE Unavailable Unavailable [...] Unavailable Oberhauser, Mary L Primary Care Unavailable Scooba, José Antonio A Attending Unavailable Oberhauser, Mary L Primary Care Unavailable Scooba, José Antonio A Admitting Unavailable Scooba, José Antonio A Attending Unavailable Oberhauser, Mary L Primary Care Unavailable Scooba, José Antonio A Attending Unavailable Oberhauser, Mary L Primary Care Unavailable Scooba, José Antonio A Attending Unavailable Oberhauser, Mary L Primary Care Unavailable Drew, Elzbieta K Admitting Unavailable Drew, Elzbieta K Attending Unavailable Oberhauser, Mary L Primary Care Unavailable Zia, José Antonio A Admitting Unavailable Scooba, José Antonio A Attending Unavailable Oberhauser, Mary L Primary Care Unavailable Scooba, José Antonio A Attending Unavailable Oberhauser, Mary L Primary Care Unavailable Scooba, José Antonio A Admitting Unavailable Scooba, José Antonio A Attending Unavailable Oberhauser, Mary L Primary Care Unavailable Scooba, José Antonio A Admitting Unavailable Scooba, José Antonio A Attending Unavailable Oberhauser, Mary L Primary Care Unavailable Carine Paredes Attending Unavailable Oberhauser, Mary L Primary Care Unavailable Scooba, José Antonio A Attending Unavailable Oberhauser, Mary L Primary Care Unavailable Scooba, José Antonio A Attending Unavailable Oberhauser, Mary L Primary Care Unavailable Scooba, José Antonio A Admitting Unavailable Scooba, José Antonio A Attending Unavailable Oberhauser, Mary L Primary Care Unavailable Scooba, José Antonio A Attending Unavailable Oberhauser, Mary L Primary Care Unavailable Scooba, José Antonio A Attending Unavailable Oberhauser, Mary L Primary Care Unavailable Roque Pope MD Primary Care Provider Roque Pope MD Primary Care Provider Roque Pope MD Primary Care Provider Dr. Roque Pope Primary Care Provider Dr. Henrietta Samayoa Emergency Provider Dr. Scott Garcia Attending Provider Dr. Scott Garcia Admit Provider Dr. Scott Garcia Other Provider Dr. Nataliia Trotter Other Provider Roque Pope MD Primary Care Provider Nurse, Nurse Attending Unavailable Roque Pope MD Primary Care Provider Cjagen CUT OFF TENDER GLASS.EMBROIDERY DESIGNEROctavia Unavailable Suppan CUT OFF TENDER GLASS.EMBROIDERY DESIGNER, Kandice A Unavailable Suppan CUT OFF TENDER GLASS.EMBROIDERY DESIGNER, Kandice A Unavailable Dr. Roque Pope MD Primary Care Provider Dr. Massimo Quinonez MD Emergency Provider Roque Pope Primary Care Unavailable Massimo Quinonez Attending Unavailable KARLA NORIEGA Attending Unavailable SELF Referring Unavailable ROQUE POPE Primary Care Unavailable ROQUE POPE Primary Care Unavailable ROQUE POPE Primary Care Unavailable ROQUE POPE Primary Care Unavailable ROQUE POPE Attending Unavailable ROQUE POPE Primary Care Unavailable ROQUE POPE Referring Unavailable ROQUE POPE Primary Care Unavailable RAKEL LOVE Attending Unavailable ROQUE POPE Primary Care Unavailable ROQUE POPE Primary Care Unavailable ROQUE POPE Attending Unavailable ROQUE POPE Primary Care Unavailable KARLA NORIEGA Referring Unavailable ROQUE POPE Primary Care Unavailable Allergies Allergy Classification Reported Allergen(s) Allergy Type Date of Onset Reaction(s) Facility (1 source) No Known Medication Allergies; Translations: [No Known Medication Allergies] Propensity to adverse reactions to drug (disorder) [facility] Repository Medications Current Medications Medication Drug Class(es) Dates Sig (Normalized) Sig (Original) acetaminophen 325 mg / HYDROcodone bitartrate 5 mg oral tablet (2 sources) Opioid Agonist Start: 05-19-2023 take 1 tablet by mouth every four hours as needed for pain Hydrocodone-Aceta minophen 5-325 mg tablet Active 1 {tbl} PO EVERY 4 HOURS NEEDED as needed for Pain 10 May 19, 2023 Start: 05-19-2023 take 1 tablet by teagan th every four hours as needed Hydrocodone-Acetaminophen Active 1 TABLE T PO EVERY 4 HOURS NEEDED 10 May 19, 2023 acetaminophen 325 mg / oxyCODONE hydrochloride 5 mg oral tablet (11 sources) Opioid Agonist Start: 08-29-2022 take 1 tablet by mouth every six hours as needed for pain Oxycodone-Acetaminophen (Percocet) 5-325 mg tablet Active 1 {tbl} PO EVERY 6 HOURS as needed for pain 12 August 29, 2022 Start: 03-31-2018 End: 04-07-2018 Oxycodone-Acetaminophen 1 TA BLET tablet Discontinued 1 {tbl} PO EVERY 6 HOURS NEEDED as needed for Pain 19 09March 31, 2018 8:51am April 06, 2018 1:00am April 07, 2018 1:08am Start: 03-31-2018 End: 04-07-2018 take 1 tablet by mouth every six hours as needed Oxycodone-Acetaminophen Discontinued 1 TABLET PO EVERY 6 HOURS NEEDED 19 09March 31, 2018 8:51am April 07, 2018 1:08am amoxicillin 500 mg oral capsule (10 sources) Penicillin-class Antibacterial Start: 09-12-2022 End: 09-22-2022 take 1 capsule by mouth twice daily amoxicillin (AMOXIL) 500 mg capsule Take 1 capsule by mouth twice daily for 10 days. 20 capsule 0 09/12/2022 09/22/2022 Active Start: 03-18-2018 End: 03-20-2018 take 1 tablet by mouth three times daily Amoxicillin 500 MG tablet Discontinued 500 mg PO THREE TIMES A DAY March 18, 2018 1:00am March 20, 2018 7:12pm Comment on above: Take 1 capsule by [facility] twice daily for 10 days. bisacodyl 5 [...] capsule (1 source) Cephalosporin Antibacterial Start: End: take 1 capsule by mouth three times daily cephALEXin (KEFLEX) 500 mg capsule Indications: Secondary infection of skin Take 1 capsule by mouth three times a day for 7 days. 21 capsule 11/22/2023 11/29/2023 Active cyclobenzaprine hydrochloride 10 mg oral tablet (10 sources) Muscle Relaxant Start: take 1 tablet by mouth three times daily as needed for muscle spasms Cyclobenzaprine 10 mg tablet Active 10 mg PO THREE TIMES A DAY as needed for Muscle Spasm May 19, 2023 12:00am Start: 01-03-2022 End: 04-22-2022 take 1 tablet [...] on above: Take 1 tablet by teagan th three times daily as needed for muscle spasm. enteric contrast (will be provided with radiology test) (2 sources) Start: 08-18-19 End: 08-19-19 enteric contrast (will be provided with radiology [...] capsule (20 sources) Provitamin D2 Compound Start: 04-23-19 End: 07-23-19 take 1 capsule by mouth every week ergocalciferol 50,000 unit capsule (VITAMIN D2, DRISDOL) Take 1 capsule by mouth one time a week. 12 capsule 04/23/2024 Active Start: 08-29-2022 End: 10-31-2023 take 1 capsule by mouth every week ergocalciferol 50,000 unit capsule (VITAMIN D2, DRISDOL) Take 1 capsule by mouth one time a week. 12 capsule 08/29/2022 10/31/2023 Discontinued Comment on above: Take 1 capsule by mo [facility] one time a week. Gatorade Sports Drink [...] in the CT contrast administration guidelines link. lidocaine 0.05 mg/mg medicated patch (5 sources) Antiarrhythmic, Amide Local Anesthetic Start: 07-13-19 Lidocaine (Lidoderm) 5 % adhesive patch,medicated Active 1 NMA TOPICAL DAILY July 12, 2022 12:00am leave on most painful area for up to 12 hrs 1 ml medroxyPROGESTERone acetate 150 mg/ml prefilled [...] appropriate PPE. Start: 05-20-2024 End: 06-18-2024 medroxyPROGESTERone (DEPO-AL OVERA) 150 mg/mL Inject 1 mL intramuscularly every 12 weeks. 1 mL 05/20/2024 06/18/2024 Discontinued Start: 04-24-2023 End: 05-18-2024 medroxyPROGESTERone (DEPO-AL OVERA) 150 mg/mL Inject 1 mL intramuscularly [...] Follow dosing instru ctions, take with food. naproxen 500 mg oral tablet (7 sources) Nonsteroidal Anti-inflammatory Drug Start: 07-13-19 take 1 tablet by mouth twice daily as needed for pain Naproxen (Naprosyn) 500 mg tablet Active 500 mg PO TWICE A DAY as needed for pain May 19, 2023 12:00am omeprazole 40 mg delayed release oral capsule (4 sources) Proton Pump Inhibitor Start: 07-14-19 23 take 1 capsule by mouth once daily Omeprazole 40 mg capsule,delayed release(DR/EC) Active 40 mg PO DAILY July 13, 2022 12:00am polyethylene glycol 3350 36974 mg powder for oral solution (2 sources) Osmotic Laxative Start: 08-26-19 End: 08-27-19 polyethylene glycol 3350 17 gram/dose powder Indications: [...] twice daily. predniSONE 10 mg oral tablet (6 sources) Start: 11-22-2023 End: 12-04-2023 predniSONE (DELTASONE) 10 mg tablet Take 4 tabs daily x 3 days, then 3 tabs x 3 days, 2 tabs x 3 days, then 1 tab x3 days with food. 30 tablet 11/22/2023 12/04/2023 Active Start: 08-29-2022 take 1 tablet by teagan th once daily Prednisone 50 mg tablet Active 50 mg PO DAILY August 29, 2022 12:00am Start: 01-03-2022 End: 01-12-2022 predniSONE (DELTASONE) 10 [...] (150 mg/mL) wearable injector (20 sources) Start: 09-06-2024 End: 03-05-2025 risankizumab-rzaa (SKYRIZI) 360 mg/2.4 mL (150 mg/mL) wearable injector Indications: Crohn's disease of both small and large intestine with complication (HCC) Inject 360mg (1 device) subcutaneously every 8 weeks. 2.4 mL 5 09/06/2024 03/05/2025 Active Start: 05-16-2024 End: 11-12-2024 risankizumab-rzaa (SKYRIZI) 360 [...] (1 awais ce) subcutaneously every 8 weeks. sucralfate 100 mg/ml oral suspension (4 sources) Aluminum Complex Start: 07-14-19 take 1 mL by mouth twice daily as needed for pain Sucralfate (Carafate) 100 mg/mL suspension Active 10 mL PO TWICE A DAY as needed for Epigastric pain 200 July 13, 2022 8:43pm 24 hr venlafaxine 75 mg extended release oral capsule (20 sources) Serotonin and Norepinephrine Reuptake Inhibitor Start: 04-10-19 25 take 1 capsule by mouth once daily [...] daily. 90 capsule 3 04/10/2024 Active Start: 10-25-2021 take 1 capsule by [facility] once daily venlafaxine ER (EFFEXOR XR) 37.5 mg 24 hr capsule Indications: Adjustment disorder with anxiety Take 1 capsule by mouth once daily. 30 capsule 2 10/25/2021 Active Comment on above: Take 1 capsule by [facility] once daily. Completed/Discontinued Medications Medication Drug Class(es) Dates Sig (Normalized) Sig (Original) acetaminophen 325 mg oral tablet (20 sources) Start: 09-18-2022 End: 10-31-2023 take 2 tablets by mouth every six hours as needed acetaminophen (TYLENOL) 325 mg tablet Take 2 tablets by mouth every 6 hours as needed (for pain.). 09/18/2022 10/31/2023 Discontinued Comment on above: Take 2 tablets by [facility] every 6 hours as needed (for pain.). 0.8 ml adalimumab 50 mg/ml auto-injector (20 sources) Tumor Necrosis Factor Maximino Start: 09-23-2019 End: 11-02-2022 HUMIRA PEN 40 mg/0.8 mL INJECT 40 MG (0.8 ML) UNDER THE SKIN EVERY 2 WEEKS (CONTINUATION OF THERAPY) 2 Each 5 07/19/2022 11/02/2022 Discontinued (Other) Start: 03-19-2016 inject 40 mg by subc utaneous injection every other week Adalimumab (Humira) 40 MG/0.8 ML syringe kit Active 40 mg SQ Q14D March 19, 2016 1:00am Comment on above: INJECT 40 MG (0.8 ML ) UNDER THE SKIN EVERY 2 WEEKS (CONTINUATION OF THERAPY) cetirizine hydrochloride 10 mg oral tablet (4 sources) Histamine-1 Receptor Antagonist Start: 021 take 1 tablet by mouth once daily cetirizine (ZYRTEC) 10 mg tablet Take 1 tablet by mouth once daily. 30 tablet 0 07/03/2020 Active Comment on above: [facility] metroNIDAZOLE 500 mg oral tablet (12 sources) Nitroimidazole Antimicrobial Start: 023 metroNIDAZOLE (FLAGYL) 500 mg tablet Indications: Crohn's disease of both small and large intestine with complication (HCC) Take 1 tablet by mouth at 9pm and take 1 tablet by mouth at 11pm the night before surgery. 2 tablet 0 08/25/2022 Active Comment on above: Take 1 tablet by teagan th at 9pm and take 1 tablet by [...] on above: Take 2 tablets by mo uth at 9pm and take 2 tablets by [...] on above: Take 1 tablet by teagan th every 6 hours as needed. risankizumab-rzaa (SKYRIZI SUBCUTANEOUS) (13 sources) End: risankizumab-rzaa (SKYRIZI SUBCUTANEOUS) Inject subcutaneously. 10/31/2023 Discontinued risankizumab-rza a (SKYRIZI SUBCUTANEOUS) Inject subcutaneously. Active risankizumab-rza a (SKYRIZI SUBCUTANEOUS) Inject subcutaneously. 0 Active Comment on above: Inject subcutaneousl y. Problems Active Problems Problem Classification Problem Date Documented Date Episodic/Chronic Abdominal pain (7 sources) Abdominal pain; Translations: [Unspecified abdominal pain] 12-22-2016 Episodic Adjustment disorders (4 sources) Adjustment disorder with [...] Translations: [Encounter for immunization] Onset: 06-18-2024 Episodic Inflammation; infection of eye (except that caused by tuberculosis or sexually transmitteddisease) (2 sources) Acute conjunctivitis; Translations: [Unspecified acute conjunctivitis, left eye] 09-13-2022 Episodic Malaise and fatigue (1 source) Malaise and fatigue; Translations: [Other malaise] 12-15-2022 Episodic Other aftercare (9 sources) Long-term current use of immunosuppressive drug; [...] sore throat; Translations: [Streptococcal pharyngitis] 09-12-2022 Episodic Poisoning by nonmedicinal substances (1 source) Insect sting; Translations: [Toxic effect of venom of other arthropod, accidental (unintentional), initial encounter] 08-09-2024 Episodic Regional enteritis and ulcerative colitis (20 sources) Crohn's disease, unspecified, without complications; Translations: [Crohn's disease] Onset: 10-09-2017 Resolved: 10-31-2023 Chronic Residual codes; unclassified (1 source) 13 weeks gestation of ; Translations: [13 weeks gestation of ] Onset: 10-09-2017 Skin and subcutaneous tissue infections (1 source) Infection of skin and/or subcutaneous tissue; Translations: [Other specified local infections of the skin and subcutaneous tissue] 11-22-2023 Episodic Spondylosis; intervertebral disc disorders; other back problems (3 sources) Neck pain; Translations: [Cervicalgia] Episodic Sprains and strains (5 sources) Low back strain; Translations: [Strain of muscle, fascia and tendon of lower back, initial encounter] 07-12-2022 Episodic Substance-related disorders (20 sources) Nicotine dependence, unspecified, uncomplicated; Translations: [Nicotine dependence, cigarettes, uncomplicated] Onset: 09-22-2017 02-10-2022 Chronic Superficial injury; contusion (5 sources) Contusion of foot; Translations: [Contusion of unspecified foot, initial encounter] Onset: 08-16-2024 07-25-2022 Episodic Syncope (5 sources) Vasovagal symptom; Translations: [Syncope and collapse] 07-12-2022 Episodic Thyroid disorders (20 sources) Goiter; Translations: [Iodine-deficiency related diffuse (endemic) goiter] Onset: 09-09-2022 Chronic Unclassified (2 sources) CROHNS DISEASE UNS W/O COMP / K50.90(ICD-10) Onset: 01-17-2017 Unclassified (1 source) ACQ ABSENCE OTH PART DIGESTV TRACT / Z90.49(ICD-10) Onset: 01-17-2017 Unclassified (1 source) TOBACCO USE / Z72.0(ICD-10) Onset: 01-17-2017 Unclassified (1 source) OTH CARE HOME CURRENT DRUG THERAPY / Z79.899(ICD-10) Onset: 01-17-2017 [...] gestation of Onset: 09-22-2017 Unclassified (1 source) or ER if worse/red streaks/fevers Unclassified (1 source) Long-term use of immunosuppressant [...] [Chest pain, unspecified] Onset: 09-09-2022 Resolved: 10-31-2023 09-05-2022 Episodic Other circulatory disease (1 source) Hypotension, [...] [S/P small bowel resection] Onset: 09-18-2022 Episodic Screening and history of mental health and substance abuse codes (1 source) Encounter for screening for depression; Translations: [Screening for depression] Onset: 05-20-2024 Episodic Sexually transmitted infections (not HIV or [...] Test Name Value Interpretation Reference Range Facility [facility] 09-05-2024 CNPN Telephone (GASTMN) ----- ALY SOLORIO ([id number]) 1990 F Date Time Provider Department 09/05/24 TAD MORTON [facility] During your visit today, we recorded the following information about you: Grecia Taylor 09/05/2024 1:14 PM Signed Patient calling to let Sonia know that her [employer] Insurance is still active for [facility] approval. [phone] Kandice Aguirre RN 09/05/2024 1:32 PM Signed Noted. Pt needs to reach out to [facility] to obtain refill Kandice Aguirre, CORTNEY Ldr Rn, IBD Kandice Aguirre RN 09/05/2024 1:45 PM Signed Addended by: KANDICE AGUIRRE RN on: 09/05/2024 01:45 PM Modules accepted: Tad Guzman MD 09/06/2024 7:24 AM Signed Addended by: TAD MORTON on: 09/06/2024 07:24 AM Modules accepted: Kandice Aparicio RN 09/09/2024 11:44 AM Signed Called pt, no answer. LM that new rx has to be filled at [facility]. Phone number for [facility] given Kandice Aguirre RN Ldr Rn, IBD Allergies As of Date: 09/05/2024 (No Known Allergies) Date Reviewed: 06/18/2024 Reviewed by: Rakel Love, CUT OFF TENDER GLASS.EMBROIDERY DESIGNER - Fully Assessed Reason for Visit: Patient Update [1234] Visit Diagnosis:Crohn's disease of both small and large intestine with complication (HCC) [K50.819] Order(s):risankizumab-rza a (SKYRIZI) 360 mg/2.4 mL (150 mg/mL) wearable injectorInject 360mg (1 device) subcutaneously every 8 weeks.Disp: 2.4 mLRfl: 5 Prescriptions as of 09/09/2024 - risankizumab-rzaa (SKYRIZI) 360 mg/2.4 mL (150 mg/mL) wearable injector Inject 360mg (1 device) subcutaneously every 8 weeks. - medroxyPROGESTERone (DEPO-PROVERA) 150 mg/mL Inject 1 mL intramuscularly every 12 weeks. Patient should start on August 12, 2024. - ergocalciferol 50,000 unit capsule (VITAMIN D2, DRISDOL) Take 1 capsule by mouth one time a week. - venlafaxine ER (EFFEXOR XR) 75 mg 24 hr capsule Take 1 capsule by mouth once daily. Facility-Administered Medications as of 09/09/2024 - medroxyPROGESTERone 150 mg injection (DEPO-PROVERA) - medroxyPROGESTERone 150 mg injection (DEPO-PROVERA) Problem List As Of Date 09/05/2024 Noted Resolved Atypical squamous cell changes of [...] 10/31/2023 Long-term use of immunosuppressant medication [*06/18/2024 Prescriptions ordered this encounter Disp Refills Start End SKYRIZI 360 MG/2.4 ML (150 MG/ML) HOPKINS* 2.4 * 5 09/06/2024 03/05/2025 Route: SQ Sig: Inject 360mg (1 device) subcutaneously every 8 weeks. Medications Discontinued During This Encounter Prescriptions - risankizumab-rzaa (SKYRIZI) 360 mg/2.4 mL (150 mg/mL) wearable injector (Discontinued) Inject 360mg (1 device) subcutaneously every 8 weeks. Encounter Status:Closed by KANDICE AGUIRRE RN on 09/05/24 [facility] [place] 08-26-2024 [facility] Telephone (GASTMN) ----- ALY SOLORIO ([id number]) 1990 F Date Time Provider Department 08/26/24 TAD MORTON [facility] During your visit today, we recorded the following information about you: Kandice Aguirre RN 08/26/2024 1:53 PM Addendum PA for Skyrizi OBI approved by Janet BURGER# [id number] Approval dates 08/23/2024- 08/22/2025 Will send approval letter to scanning and notify pt of approval via message Kandice Aguirre RN Ldr Rn, IBD Allergies As of Date: 08/26/2024 (No Known Allergies) Date Reviewed: 06/18/2024 Reviewed by: Rakel Love APRN.EMBROIDERY DESIGNER - Fully Assessed Reason for Visit: Medication Authorization [[id number]] Cmt: Skyrizi OBI- APPROVED through 08/22/2025 Prescriptions as of 08/26/2024 - medroxyPROGESTERone (DEPO-PROVERA) 150 mg/mL Inject 1 [...] mouth once daily. Facility-Administered Medications as of 08/26/2024 - medroxyPROGESTERone 150 mg injection (DEPO-PROVERA) - medroxyPROGESTERone 150 mg injection (DEPO-PROVERA) Problem List As Of Date 08/26/2024 Noted Resolved Atypical squamous cell changes of [...] of immunosuppressant medication [*06/18/2024 Encounter Status:Closed by KANDICE AGUIRRE RN on 08/26/24 Normal [facility] Emergency Department Summary on 08-09-2024 Emergency Department Summary [facility] Medical Records Department [address] [place] [address] Emergency Department Summary 08/09/24 MR#: [id number] Acct: [id number] Name: ALY SOLORIO Rep #: [id number] : 1990 34 From: Massimo Quinonez MD PCP: Dr. Roque Pope MD Status:REG ER Location: ED HPI History of Present Illness Chief Complaint: Bite Informant: patient Narrative Narrative: 34-year-old female presents for what she thinks may be a spider bite that occurred 3 or so hours prior to arrival. She states she started to feel some itching all of a sudden while she was sitting outside on her right forearm, looked down and noticed a couple of small bite iraheta. Then she noticed some itching on her right elbow. Then she started having numbness in the area of these, that started traveling up her upper arm, now it is close to her shoulder as far as the numbness. She is not having significant pain. She denies any systemic symptoms. She agrees that nothing looks bad she is here because of more the way that it feels in her arm. She did not see an insect or spider. She was sitting on her porch at the time. She did not see any large animal such as a bat or anything like that around her. She was with somebody else who also did not see anything like that, according to the patient. ROS ROS ED Constitutional Constitutional ED: Denies chills or fever(s) Eyes Eyes: Denies change in vision Cardiovascular Cardiovascular: Denies chest pain Respiratory/Chest Respiratory/Chest: Denies dyspnea Gastrointestinal Gastrointestinal: Denies nausea Musculoskeletal Musculoskeletal: Denies back pain, extremity pain, joint pain or neck pain Integumentary Reports as per HPI Neurologic Neurologic: Reports paresthesias [facility] Medical History (Updated 08/09/24 @ 22:[address] Massimo Quinonez MD) Crohn's disease Home Medications ???Medication ???Instructions ???Recorded ???Last Taken ???Type adalimumab 40 mg/0.8 mL 40 mg SQ Q14D crohns 03/19/16 12/0 04/20 History subcutaneous syringe kit (Humira) venlafaxine 75 mg capsule,extended 75 mg PO DAILY mood 02/05/2211/18 History release 24 hr lidocaine 5 % topical patch 1 patch topical DAILY #15 ea 07/12 Unknown Rx (Lidoderm) naproxen 500 mg tablet (Naprosyn) 500 mg PO BID PRN pain #20 tabs 0 07/12/22 Unknown Rx omeprazole 40 mg capsule,delayed 40 mg PO DAILY #30 caps 07/13/22 U nknown Rx release sucralfate 100 mg/mL oral 10 ml PO BID PRN Epigastric pain 0 07/13/22 Unknown Rx suspension (Carafate) #200 mL oxycodone-acetaminophen 5 mg-325 1 tab PO Q6H PRN pain 3 days #12 0 08/29/22 Unknown Rx mg tablet (Percocet) tabs prednisone 50 mg tablet 50 mg PO DAILY #5 tabs 08/29/22 Un known Rx cyclobenzaprine 10 mg tablet 10 mg PO TID PRN Muscle Spasm #20 05/19/23 Unknown Rx TABLETS hydrocodone-acetaminophen 5-325mg 1 tab PO Q4H PRN PRN Pain 2 days 05/19/23 Unknown Rx 5mg-325mg #10 TABLETS naproxen 500 mg tablet (Naprosyn) 500 mg PO BID PRN pain #20 tabs 0 05/19/23 Unknown Rx Allergy/AdvReac Type Severity Reaction Status Date / Time No Known Allergies Allergy Verified 08/09/24 21:15 Family History no significant family his Surgical History History of section History of bowel resection Social History Smoking Status: Current every day smoker tobacco type: e-cigarettes EXAM Physical Exam Const Vital Signs: 08/09/24 21:15 Temperature 96.5 F L Temperature Source Temporal Pulse Rate 85 Respiratory Rate 16 Blood Pressure 129/79 H Blood Pressure Mean 95 Pulse Ox 100 Oxygen Delivery Method Room Air Positive well nourished and well developed General Appearance ED: well developed and NAD Neck full ROM Neck Narrative: supple Resp normal respiratory effort Extremity normal to inspection and full ROM Extremity Narrative: there are 2 small nontender erythematous bumps consistent with possible mosquito bites in the right olecranon area/elbow. Painless full range of motion of the joint. All compartments of the upper arm and forearm are soft and nondistended and nontender. There is no paresthesias in the hand or reproducible paresthesias with range of motion of the elbow or the wrist. No bony tenderness anywhere. There is also a very small nonraised erythematous area over a nevus on the dorsal right forearm that is nontender and without any lymphangitis anywhere. No epitrochlear lymphadenopathy. Neuro oriented x3 and CN's II-XII intact bilaterally Neuro Narrative: No gross sensory deficits. Subjective decrease sensation right upper arm. Median, radial, ulnar nerve sensory and motor function intact in the hand, includin (more content not included)... Normal [facility] C. trachomatis+N. gonorrhoea e DNA OBDULIA+probe Ql (Unsp spec)on 06-19-2024 C. trachomatis rRNA OBDULIA+probe Ql (Unsp spec) Not detected Not detected [facility] Interpretation and review of laboratory results Normal [facility] N. gonorrhoeae rRNA OBDULIA+probe Ql (Unsp spec) Not detected Not detected [facility] This FDA-approved as say has been modified to accept rectal swabs self-collected in a healthcare setting. For self-collected rectal swabs, the test was developed and its performance characteristics determined by the [facility]'s [facility] Medicine [place] ([facility]). It has not been cleared or approved by the FDA. -[facility] is regulated under CLIA as qualified to perform high-complexity testing. This test is used for clinical purposes. It should not be regarded as investigational or for research. [facility] C. trachomatis+N. gonorrhoea e DNA OBDULIA+probe Ql (Unsp spec)on 06-18-2024 C. trachomatis rRNA OBDULIA+probe Ql (Unsp spec) Not detected Normal Not detected [facility] Comment on above: Order Comment: Speci men Type: SWABOrdering Facility: [facility] Address: [address] [place] [address] Performed By: #### 3 6902-5 ####[facility] LABIA [id number] [address] [place] N. gonorrhoeae rRNA OBDULIA+probe Ql (Unsp spec) Not detected Normal Not detected [facility] Comment on above: Order Comment: Speci men Type: SWABOrdering Facility: [facility] Address: [address] [place] [address] Performed By: #### 3 6902-5 ####[facility] LABIA [id number] [address] [place] CNOVon 06-18-2024 CNOV Office Visit (OBGYWM ) ----- LYNDSEYALY Cory ([id number]) 1990 F Date Time Provider Department 06/18/24 3:00 PM RAKEL LOVE During your visit today, we recorded the following information about you: Blood pressure Weight Height 112/71 68.5 kg 1.505 m Rakel Love, BYRON.EMBROIDERY DESIGNER 06/18/2024 3:48 PM Signed Aly is a [...] discussed with the Patient or Patient's Authorized Blood Donor Unit Assistant. As applicable, any other physician, advance practice provider, medical student, or other health professional student that will be observing or involved in the sensitive examination for educational or training purposes was discussed with the Patient or Authorized Blood Donor Unit Assistant. The Patient or Authorized Blood Donor Unit Assistant has agreed to proceed with the sensitive [...] external genitalia normal, normal Bartholin's glands, urethra, [place]'s glands, no vulvar lesions, no cervical lesions, [...] of osteoporosis, (more content not included)... Normal [facility] 06-18-2024 [facility] Telephone (CORINAN) ----- ALY SOLORIO ([id number]) 1990 F Date Time Provider Department 06/18/24 ROQUE POPE During your visit today, we recorded the following information about you: Estephanie Martinez MA 06/18/2024 4:26 PM Signed Type of form: School Application: [facility] EMS Program Form received via fax When form is completed, call patient Form has been forwarded to Physician Desk: WAYNE Reyes Lindsey, MA 06/25/2024 4:47 PM Signed Patient informed ready for pickup. Taken to medical records. Kamila Vila MA Allergies As of Date: 06/18/2024 (No Known Allergies) Date Reviewed: 06/18/2024 Reviewed by: Rakel Love APRN.EMBROIDERY DESIGNER - Fully Assessed Reason for Visit: Forms [913] Cmt: EMS Start [facility] Prescriptions as of 06/25/2024 - medroxyPROGESTERone (DEPO-PROVERA) [...] Status:Closed by KAMILA VILA on 06/25/24 Normal [facility] HIGH RISK HUMAN PAPILLOMA FANI (HPV), PCR FOR DETECTION AND GENOTYPINGon 06-18-2024 HPV 16 Ag Ql (Unsp spec) Not detected Normal Not detected [facility] Comment on above: Order Comment: Speci men Type: FLUID SPECIMENOrdering Facility: [facility] Address: [address] [place] [address] Performed By: #### H PVHRT ####[facility] LABCLIA [id number] [place] [address] [place] HPV 18 Ag Ql (Unsp spec) Not detected Normal Not detected [facility] Comment on above: Order Comment: Speci men Type: FLUID SPECIMENOrdering Facility: [facility] Address: [address] [place] [address] Performed By: #### H PVHRT ####[facility] LABCLIA [id number] [place] [address] [place] HPV 31+33+35+39+45+51+52+5 6+58+59+66+68 DNA OBDULIA+probe Ql (Cvx) Detected Abnormal Not detected [facility] Comment on above: Order Comment: Speci men Type: FLUID SPECIMENOrdering Facility: [facility] Address: [address] [place] [address] Result Comment: High Risk HPV Other Type includes HPV types 31, 33, 35, 39, 45, 51, 52, 56, 58, 59, 66 and 68. Performed By: #### H PVHRT ####[facility] LABCLIA [id number] [place] [address] [place] PAP TESTon 06-18-2024 ADEQUACY Normal [facility] Comment on above: Order Comment: Speci men Type: FLUID SPECIMENOrdering Facility: [facility] Address: [address] [place] [address] Result Comment: Sati sfactory for interpretation. Transformation zone present Performed By: #### L [id number] ####[facility] LABCLIA [id number] [address] [address] [place] CASE REPORT Normal [facility] Comment on above: Order Comment: Speci men Type: FLUID SPECIMENOrdering Facility: [facility] Address: [address] [place] [address] Result Comment: Gyne cologic Cytology Report Case: [id number] Authorizing Provider: Rakel Love APRN.EMBROIDERY DESIGNER Collected: 06/18/2024 03:58 PM Ordering Location: OB/Gynecology Received: 06/18/2024 04:34 PM First Screen: Loni Elam, CT, ASCP Pathologist: Ana Hoff MD Specimen: Pap Test, ThinPrep, Cervix Performed By: #### L [id number] ####[facility] LABCLIA [id number] [place] [id number] [place] CLINICAL HISTORY, CYTOLOGY, DEPOT MANAGER Previous ASCUS Normal [facility] Comment on above: Order Comment: Speci men Type: FLUID SPECIMENOrdering Facility: [facility] Address: [address] [place] [address] Result Comment: Posi tive HPV Performed By: #### L [id number] ####[facility] LABCLIA [id number] [address] [address] [place] FINAL PERFORMING LAB Normal [facility] Comment on above: Order Comment: Speci men Type: FLUID SPECIMENOrdering Facility: [facility] Address: [address] [place] [address] Result Comment: Tech nical component, cold meat chef screening performed at [facility], [address] [place] [address] [place] [address] CLIA# [id number] Diagnostic interpretation performed at: [facility], [address] [place] [address] [place] [address] CLIA# [id number] Regional Account Executive: Henry Moreno MD Performed By: #### L [id number] ####[facility] LABCLIA [id number] [address] [address] [place] INTERPRETATION, CYTOLOGY, DEPOT MANAGER Abnormal [facility] Comment on above: Order Comment: Speci men Type: FLUID SPECIMENOrdering Facility: [facility] Address: [address] [place] [address] Result Comment: Atyp ical squamous cells of undetermined significance (ASC-US). at 0939 EDT Performed By: #### L [id number] ####[facility] LABCLIA [id number] [address] [address] [place] LMP 04/04/2023 Normal [facility] Comment on above: Order Comment: Speci men Type: FLUID SPECIMENOrdering Facility: [facility] Address: [address] [place] [address] Result Comment: Comm ent: Depo Provera Performed By: #### L [id number] ####[facility] LABCLIA [id number] [address] [address] [place] PAP DISCLAIMER COMMENT The Pap Smear is a screening test for cervical cancer. False negative results occur with all screening tests, emphasizing the need for rescreening at recommended intervals, and clinical correlation. Normal [facility] Comment on above: Order Comment: Speci men Type: FLUID SPECIMENOrdering Facility: [facility] Address: [address] [place], [place] [address] Performed By: #### L [id number] ####[facility] LABCLIA [id number] [address] [address] [place] PAP GENERAL CATEGORIZATION Epithelial Cell Abnormality Normal [facility] Comment on above: Order Comment: Speci men Type: FLUID SPECIMENOrdering Facility: [facility] Address: [address] [place], [place] [address] [id number] Performed By: #### L [id number] ####[facility] [id number] [place] [id number] [facility] PAP INSPECTOR BOILER COMMENT This specimen has be en analyzed by the ThinPrep Imaging System, an automated imaging and review system, which assists the laboratory in evaluating cells on ThinPrep Pap tests. Following automated imaging, selected rider from every slide are reviewed by a cold meat chef. Normal [facility] Comment on above: Order Comment: Speci men Type: FLUID SPECIMENOrdering Facility: [facility] Address: [address] [place] [address] Performed By: #### L [id number] ####[facility]ITAL[facility] [id number] [place] [id number] [facility] CNNURSEon 05-23-2024 [facility] Nurse Visit (OBGYWM) ----- ALY SOLORIO ([id number]) 1990 F Date Time Provider Department 05/23/24 4:00 PM NURSE [facility] WSTR OBGYWM During your visit today, we recorded the following information about you: Blood pressure Weight 104/68 69.5 kg Ford Gutierrez, RN 05/23/2024 4:06 PM Signed Patient identified by name and date of . Aly Solorio is here for a Depo Provera injection. Patient brought medication. Date last injected: 02/27/2024 Depo-Provera, 150 mg, administered IM right upper quadrant gluteus, Lot # [id number], expiration date 07/27/2025. Depo-Provera was given without incident. Date of last menses: Patient's last menstrual period was 04/04/2023 (approximate). Irregular bleeding - No Menses ceased - Yes Patient instructed to return to clinic in 12 weeks. [email or web address] Provider NBA was present in office at time of injection. Ford Gutierrez RN Allergies As of Date: 05/23/2024 (No Known Allergies) Date Reviewed: 05/23/2024 Reviewed by: Ford Gutierrez RN - Fully Assessed Reason for Visit: Depo Provera Injection [1655] Primary Visit Diagnosis:Depo-Provera contraceptive status [Z30.42] Other Visit Diagnosis:Encounter for surveillance of other contraceptive [Z30.49] Order(s):medroxyPROGESTER one 150 mg injection (DEPO-PROVERA)Disp: Rfl: Prescriptions as [...] for Encounter Date Provider Department Center 05/23/2024 [id number]-SDCZE [facility] *[facility] Lizarraga Encounter Status:Closed by FORD GUTIERREZ on 05/23/24 [facility] CNOVon 05-20-2024 CN Office Visit (FAMPWS ) ----- ALY SOLORIO ([id number]) 1990 F Date Time Provider Department 05/20/24 [...] status: current everyday user Substances: Nicotine Devices: Ecoviate tank Substance Use Topics Alcohol use: Yes [...] [F41.9] Screening for depression [Z13.31] Order(s):DEPRESSION SCREENING [1050671] Order #: [id number]: 1 Prescriptions as of 05/20/2024 - medroxyPROGESTERone [...] once daily. (more content not included)... Normal [facility] 25(OH)D3 SerPl-mCncon 2024 25-hydroxyvitamin D3 [Mass/Vol] 13.1 ng/mL Low 31.0-80.0 [facility] Comment on above: Order Comment: Missy cantor Type: BLOOD SPECIMENOrdering Facility: [facility] Address: [address] [place] [address] Result Comment: Clas sification of 25 [place] Vitamin D status: Deficiency/Insufficiency: < or = 30 ng/ml. Sufficiency/Optimal Levels: 31-80 ng/mL Toxicity: > 100 ng/mL. Test performed by chemiluminescent immunoassay. Performed By: #### 1 989-3 ####[facility] [id number] [address] BLOOD TB SCREENon 04-22-2024 M. tuberculosis tuberculin stim IFN-g Ql (Bld) Negative Normal [facility] Comment on above: Order Comment: Missy cantor Type: BLOOD SPECIMENOrdering Facility: [facility] Address: [address] [place] [address] Performed By: #### I NFTBP ####[facility] [id number] [address] STATES OF [facility] MITOGEN MINUS NIL >9.92 Normal >=0.50 [facility] Comment on above: Order Comment: Missy cantor Type: BLOOD SPECIMENOrdering Facility: [facility] Address: [address] [place] [address] Performed By: #### I NFTBP ####[facility] [id number] [address] TB GAMMA INTERPRETATION Infection with M. tuberculosis complex is unlikely. If latent tuberculosis infection is highly suspected, a negative result does not rule out the infection. Specimens from immunocompromised patients and those <5 years of age may show false negative results. In case of a contact investigation, please repeat 8-12 weeks after a known exposure. Normal [facility] Comment on above: Order Comment: Speci men Type: BLOOD SPECIMENOrdering Facility: [facility] Address: [address] [place] [address] Performed By: #### I NFTBP ####[facility] LABCLIA [id number] [place] [address] [place] TB NIL 0.08 IU/mL Normal <=8.00 [facility] Comment on above: Order Comment: Speci men Type: BLOOD SPECIMENOrdering Facility: [facility] Address: [address] [place] [address] Performed By: #### I NFTBP ####[facility] LABCLIA [id number] [place] [address] [place] TB1 AG MINUS NIL 0.00 IU/mL Normal <0.35 [facility] Comment on above: Order Comment: Speci men Type: BLOOD SPECIMENOrdering Facility: [facility] Address: [address] [place] [address] Performed By: #### I NFTBP ####[facility] LABCLIA [id number] [address] [place] TB2 AG MINUS NIL 0.02 IU/mL Normal <0.35 [facility] Comment on above: Order Comment: Speci men Type: BLOOD SPECIMENOrdering Facility: [facility] Address: [address] [place] [address] Performed By: #### I NFTBP ####[facility] LABCLIA [id number] [place] [id number] [place] CBC W Auto Differential pane l (Bld)on 04-22-2024 Basophils (Bld) [#/Vol] 10*3/uL Normal <0.11 [facility] Comment on above: Order Comment: Speci men Type: BLOOD SPECIMENOrdering Facility: [facility] Address: [address] [place] [address] Performed By: #### 5 7021-8 ####[facility] TORYWNCLIA [id number] [place] [address] [place] Basophils/100 WBC (Bld) 0.2 % Normal [facility] Comment on above: Order Comment: Speci men Type: BLOOD SPECIMENOrdering Facility: [facility] Address: [address] [place] [address] Performed By: #### 5 7021-8 ####[facility] MAKHAMPTONNAYELIA [id number] [place] [address] [place] Differential cell count method Nom (Bld) Auto Normal [facility] Comment on above: Order Comment: Speci men Type: BLOOD SPECIMENOrdering Facility: [facility] Address: [address] [place] [address] Performed By: #### 5 7021-8 ####[facility] MAKHAMPTONNAYEABDIA [id number] [place] [address] [place] Eosinophils (Bld) [#/Vol] 0.10 10*3/uL Normal <0.46 [facility] Comment on above: Order Comment: Speci men Type: BLOOD SPECIMENOrdering Facility: [facility] Address: [address] [place] [address] Performed By: #### 5 7021-8 ####[facility] HOSPITALNAYELIA [id number] [place] [address] [place] Eosinophils/100 WBC (Bld) 1.2 % Normal [facility] Comment on above: Order Comment: Speci men Type: BLOOD SPECIMENOrdering Facility: [facility] Address: [address] [place] [address] Performed By: #### 5 7021-8 ####[facility]ITALNCLIA [id number] [place] [address] [place] Erythrocyte distribution width (RBC) [Ratio] 13.2 % Normal 11.5-15.0 [facility] Comment on above: Order Comment: Speci men Type: BLOOD SPECIMENOrdering Facility: [facility] Address: [address] [place] [address] Performed By: #### 5 7021-8 ####[facility] [id number] [place] [address] [place] Hematocrit (Bld) [Volume fraction] 42.5 % Normal 36.0-46.0 [facility] Comment on above: Order Comment: Speci men Type: BLOOD SPECIMENOrdering Facility: [facility] Address: [address] [place] [address] Performed By: #### 5 7021-8 ####[facility] [id number] [place] [address] [place] Hemoglobin (Bld) [Mass/Vol] 13.9 g/dL Normal 11.5-15.5 [facility] Comment on above: Order Comment: Speci men Type: BLOOD SPECIMENOrdering Facility: [facility] Address: [address] [place] [address] Performed By: #### 5 7021-8 ####[facility]ITALNCLIA [id number] [place] [address] [place] Immature granulocytes (Bld) [#/Vol] 10*3/uL Normal <0.10 [facility] Comment on above: Order Comment: Speci men Type: BLOOD SPECIMENOrdering Facility: [facility] Address: [address] [place] [address] Performed By: #### 5 7021-8 ####[facility] [id number] [place] [address] [place] Immature granulocytes/100 WBC (Bld) 0.2 % Normal [facility] Comment on above: Order Comment: Speci men Type: BLOOD SPECIMENOrdering Facility: [facility] Address: [address] [place] [address] Performed By: #### 5 7021-8 ####[facility] MILLWNCLIA [id number] [place] [address] [place] Lymphocytes (Bld) [#/Vol] 2.60 10*3/uL Normal 1.00-4.00 [facility] Comment on above: Order Comment: Speci men Type: BLOOD SPECIMENOrdering Facility: [facility] Address: [address] [place] [address] Performed By: #### 5 7021-8 ####[facility] [id number] [place] [address] [place] Lymphocytes/100 WBC (Bld) 32.1 % Normal [facility] Comment on above: Order Comment: Speci men Type: BLOOD SPECIMENOrdering Facility: [facility] Address: [address] [place] [address] Performed By: #### 5 7021-8 ####[facility]ITALNCLIA [id number] [place] [address] [place] MCH (RBC) [Entitic mass] 27.7 pg Normal 26.0-34.0 [facility] Comment on above: Order Comment: Speci men Type: BLOOD SPECIMENOrdering Facility: [facility] Address: [address] [place] [address] Performed By: #### 5 7021-8 ####[facility] MILLHAMPTONNCLIA [id number] [place] [address] [place] MCHC (RBC) [Mass/Vol] 32.7 g/dL Normal 30.5-36.0 [facility] Comment on above: Order Comment: Speci men Type: BLOOD SPECIMENOrdering Facility: [facility] Address: [address] [place] [address] Performed By: #### 5 7021-8 ####[facility] CENTERLIA [id number] [place] [address] [place] MCV (RBC) [Entitic vol] 84.7 fL Normal 80.0-100.0 [facility] Comment on above: Order Comment: Speci men Type: BLOOD SPECIMENOrdering Facility: [facility] Address: [address] [place] [address] Performed By: #### 5 7021-8 ####[facility] [id number] [place] [address] [place] Monocytes (Bld) [#/Vol] 0.40 10*3/uL Normal <0.87 [facility] Comment on above: Order Comment: Speci men Type: BLOOD SPECIMENOrdering Facility: [facility] Address: [address] [place] [address] Performed By: #### 5 7021-8 ####[facility] [id number] [place] [address] [place] Monocytes/100 WBC (Bld) 4.9 % Normal [facility] Comment on above: Order Comment: Speci men Type: BLOOD SPECIMENOrdering Facility: [facility] Address: [address] [place] [address] Performed By: #### 5 7021-8 ####[facility] [id number] [place] [address] [place] Neutrophils (Bld) [#/Vol] 4.96 10*3/uL Normal 1.45-7.50 [facility] Comment on above: Order Comment: Speci men Type: BLOOD SPECIMENOrdering Facility: [facility] Address: [address] [place] [address] Performed By: #### 5 7021-8 ####[facility] CENTERLIA [id number] [place] [address] [place] Neutrophils/100 WBC (Bld) 61.4 % Normal [facility] Comment on above: Order Comment: Speci men Type: BLOOD SPECIMENOrdering Facility: [facility] Address: [address] [place] [address] Performed By: #### 5 7021-8 ####[facility] [id number] [place] [address] [place] Nucleated RBC (Bld) [#/Vol] 10*3/uL Normal <0.01 [facility] Comment on above: Order Comment: Speci men Type: BLOOD SPECIMENOrdering Facility: [facility] Address: [address] [place] [address] Performed By: #### 5 7021-8 ####[facility] [id number] [place] [address] [place] Nucleated RBC/100 WBC (Bld) [Ratio] 0.0 /100 WBC Normal [facility] Comment on above: Order Comment: Speci men Type: BLOOD SPECIMENOrdering Facility: [facility] Address: [address] [place] [address] Performed By: #### 5 7021-8 ####[facility] [id number] [place] [address] [place] Platelet mean volume (Bld) [Entitic vol] 8.7 fL Low 9.0-12.7 [facility] [facility] Comment on above: Order Comment: Speci men Type: BLOOD SPECIMENOrdering Facility: [facility] Address: [address] [place] [address] Performed By: #### 5 7021-8 ####[facility] CENTERLIA [id number] [place] [address] [place] Platelets (Bld) [#/Vol] 277 10*3/uL Normal 150-400 [facility] Comment on above: Order Comment: Speci men Type: BLOOD SPECIMENOrdering Facility: [facility] Address: [address] [place] [address] Performed By: #### 5 7021-8 ####[facility]PITALNCA [id number] [place] [address] [place] RBC (Bld) [#/Vol] 5.02 10*6/uL Normal 3.90-5.20 [facility] Comment on above: Order Comment: Speci men Type: BLOOD SPECIMENOrdering Facility: [facility] Address: [address] [place] [address] Performed By: #### 5 7021-8 ####[facility] [id number] [place] [address] [place] WBC (Bld) [#/Vol] 8.10 10*3/uL Normal 3.70-11.00 [facility] Comment on above: Order Comment: Speci men Type: BLOOD SPECIMENOrdering Facility: [facility] Address: [address] [place] [address] Performed By: #### 5 7021-8 ####[facility] [id number] [place] [address] [place] CRP SerPl-mCncon 04-22-2024 CRP [Mass/Vol] mg/L Normal <0.9 [facility] Comment on above: Order Comment: Speci men Type: BLOOD SPECIMENOrdering Facility: [facility] Address: [address] [place] [address] Performed By: #### 2 132-9, 1987-06 ####[facility] LABCLIA [id number] [place] [address] [place] Comprehensive metabolic 2000 panelon 04-22-2024 Albumin [Mass/Vol] 4.4 g/dL Normal 3.9-4.9 [facility] Comment on above: Order Comment: Speci men Type: BLOOD SPECIMENOrdering Facility: [facility] Address: [address] [place] [address] Performed By: #### 2 4323-8 ####[facility] MILLTOWNCLIA [id number] [place] [address] [place] ALP [Catalytic activity/Vol] 64 U/L Normal 34-123 [facility] Comment on above: Order Comment: Speci men Type: BLOOD SPECIMENOrdering Facility: [facility] Address: [address] [place] [address] Performed By: #### 2 4323-8 ####[facility] MILLTOWNCLIA [id number] [place] [address] [place] ALT [Catalytic activity/Vol] 36 U/L Normal 7-38 [facility] Comment on above: Order Comment: Speci men Type: BLOOD SPECIMENOrdering Facility: [facility] Address: [address] [place] [address] Performed By: #### 2 4323-8 ####[facility]ITALWNCL[facility] [id number] [place] [address] [place] Anion gap [Moles/Vol] 13 mmol/L Normal 8-15 [facility] Comment on above: Order Comment: Speci men Type: BLOOD SPECIMENOrdering Facility: [facility] Address: [address] [place] [address] Performed By: #### 2 4323-8 ####[facility]ITALWNCLIA [id number] [place] [address] [place] AST [Catalytic activity/Vol] 23 U/L Normal 13-35 [facility] Comment on above: Order Comment: Speci men Type: BLOOD SPECIMENOrdering Facility: [facility] Address: [address] [place] [address] Performed By: #### 2 4323-8 ####[facility]ITALNCLIA [id number] [place] [address] [place] Bilirubin [Mass/Vol] 0.4 mg/dL Normal 0.2-1.3 [facility] Comment on above: Order Comment: Speci men Type: BLOOD SPECIMENOrdering Facility: [facility] Address: [address] [place] [address] Performed By: #### 2 4323-8 ####[facility] [id number] [place] [address] [place] Calcium [Mass/Vol] 9.3 mg/dL Normal 8.5-10.2 [facility] Comment on above: Order Comment: Speci men Type: BLOOD SPECIMENOrdering Facility: [facility] Address: [address] [place] [address] Performed By: #### 2 4323-8 ####[facility] [id number] [place] [address] [place] Chloride [Moles/Vol] 110 mmol/L High 98-107 [facility] Comment on above: Order Comment: Speci men Type: BLOOD SPECIMENOrdering Facility: [facility] Address: [address] [place] [address] Performed By: #### 2 4323-8 ####[facility] [id number] [place] [address] [place] CO2 [Moles/Vol] 19 mmol/L Low 22-30 [facility] Comment on above: Order Comment: Speci men Type: BLOOD SPECIMENOrdering Facility: [facility] Address: [address] [place] [address] Performed By: #### 2 4323-8 ####[facility] [id number] [place] [address] [place] Creatinine [Mass/Vol] 0.87 mg/dL Normal 0.58-0.96 [facility] Comment on above: Order Comment: Speci men Type: BLOOD SPECIMENOrdering Facility: [facility] Address: [address] [place] [address] Performed By: #### 2 4323-8 ####[facility] [id number] [place] [address] [place] Creatinine and Glomerular filtration rate.predicted panel (S/P/Bld) 91 mL/min/1.73m??? Normal >=60 [facility] Comment on above: Order Comment: Missy cantor Type: BLOOD SPECIMENOrdering Facility: [facility] Address: [address] [place] [address] Result Comment: Evelin mated Glomerular Filtration Rate [...] actual GFR. Performed By: #### 2 4323-8 ####[facility] [id number] [place] [address] [place] Glucose [Mass/Vol] 93 mg/dL Normal 74-99 [facility] Comment on above: Order Comment: Missy cantor Type: BLOOD SPECIMENOrdering Facility: [facility] Address: [address] [place] [address] Result Comment: The [place] Diabetes Association (ADA) provides guidance for cutoff [...] Standards of Medical Care in Diabetes 2016, [place] [employer]. Diabetes Care. 2016.39(Suppl 1). Performed By: #### 2 4323-8 ####[facility] MILLTOWNCLIA [id number] [place] [address] [place] Potassium [Moles/Vol] 3.9 mmol/L Normal 3.7-5.1 [facility] Comment on above: Order Comment: Speci men Type: BLOOD SPECIMENOrdering Facility: [facility] Address: [address] [place] [address] Performed By: #### 2 4323-8 ####[facility] MILLTOWNCLIA [id number] [place] [address] [place] Protein [Mass/Vol] 6.8 g/dL Normal 6.3-8.0 [facility] Comment on above: Order Comment: Speci men Type: BLOOD SPECIMENOrdering Facility: [facility] Address: [address] [place] [address] Performed By: #### 2 4323-8 ####[facility] CENTERLIA [id number] [place] [address] [place] Sodium [Moles/Vol] 142 mmol/L Normal 136-144 [facility] Comment on above: Order Comment: Speci men Type: BLOOD SPECIMENOrdering Facility: [facility] Address: [address] [place] [address] Performed By: #### 2 4323-8 ####[facility] MILLTOWNCLIA [id number] [place] [address] [place] Urea nitrogen [Mass/Vol] 5 mg/dL Low 7-21 [facility] Comment on above: Order Comment: Speci men Type: BLOOD SPECIMENOrdering Facility: [facility] Address: [address] [place] [address] Performed By: #### 2 4323-8 ####[facility]ITALNCLIA [id number] [place] [address] [place] Vit B12 SerPl-mCncon 025 Cobalamin (Vitamin B12) [Mass/Vol] 227 pg/mL Low 232-1245 [facility] Comment on above: Order Comment: Speci men Type: BLOOD SPECIMENOrdering Facility: [facility] Address: [address] [place] [address] Performed By: #### 2 132-9, 1987-06 ####[facility] LABCLIA [id number] [facility] CENTERRojelio LOGSDENDESK [id number] OF [facility] CNPNon 04-17-2024 CNPN Telephone (FAMWS) ----- ALY SOLORIO ([id number]) 1990 F Date Time Provider Department 04/17/24 [facility]OPE [facility] During your visit today, we recorded [...] Encounter Status:Closed by FORD BROWER on 04/17/24 [facility] ----- ALY SOLORIO ([id number]) 1990 F Date Time Provider Department 04/10/24 [facility] During your visit today, we recorded the following information about you: Roque Pope MD 04/10/2024 12:00 PM Signed On schedule for me in am at [place]. Make sure is aware it is at that location. oFrd Brower LPN 04/10/2024 12:11 PM Signed Rescheduled. [...] Encounter Status:Closed by FORD BROWER on 04/10/24 [facility] Dane 04-06-2024 [facility] Telephone (FAMPWS) ----- ALY SOLORIO ([id number]) 1990 F Date Time Provider Department 04/06/24 ROQUE POPE During your visit today, we [...] Fully Assessed Reason for Visit: Insurance Authorization [[id number]] Cmt: venlafaxine ER Order(s):venlafaxine ER (EFFEXOR XR) [...] Encounter Status:Closed by ROQUE [facility]10/[facility] Nurse Visit (OBGYWM) ----- ALY SOLORIO ([id number]) 1990 F Date Time Provider Department 02/27/24 2:00 PM NURSE [facility] WSTR OBGYWM During your visit today, we recorded the following information about you: Blood pressure Weight 110/68 71.2 kg Kamila Long, CORTNEY 02/29/2024 9:01 AM Signed Patient identified by name and date of . Aly Solorio is here for a Depo Provera injection. Patient brought medication. Date last injected: out of range - negative test Depo-Provera, 150 mg, administered IM left upper quadrant gluteus, Lot # [id number], expiration date 07/27/2025. Depo-Provera was given without incident. Date of last menses: Patient's last menstrual period was 04/04/2023 (approximate). Irregular bleeding - No Menses ceased - Yes STD prevention discussed: Yes Patient instructed to return to clinic in 12 weeks. [email or web address] Provider Henrietta Aguilera MD was present in office at time of injection. Kamila Long RN Allergies As of Date: 02/27/2024 (No Known Allergies) Date Reviewed: 02/27/2024 Reviewed by: Kamila Long RN - Fully Assessed Reason for Visit: Depo Provera Injection [1655] Primary Visit Diagnosis:Encounter for management and injection of depo-Provera [Z30.42] Order(s):UA DIP,URINE HCG (POC) [5641433] Order #: [id number]. #:[id number] Prescriptions as of 02/29/2024 - risankizumab-rzaa (SKYRIZI) [...] for Encounter Date Provider Department Center 02/27/2024 [id number] [facility] *OBGYWM Nella Lizarraga Encounter Status:Closed by KAMILA LONG on 02/29/24 Normal [facility] UA DIP,URINE HCG (POC)on Beta HCG ( test) Ql (U) Negative Negative [facility] Comment on above: Location:[facility], [address], [place], [address] Teacher Assistant (POCT) Internal [facility] Location:[facility], [address], [place], [address] [facility] POINT OF CARE [facility] CNOVon 11-22-2023 CNOV Office Visit (UCWSTR ) ----- LYNDSEYALY aRy ([id number]) 1990 F Date Time Provider Department 11/22/23 5:15 PM RANDY BOJORQUEZ [facility] During your visit today, we recorded the following information about you: Temperature Pulse Respiration Blood pressure 98.9 degrees 80/minute 18/minute 128/64 Weight 67.6 kg Randy Bojorquez APRN.EMBROIDERY DESIGNER 11/22/2023 5:56 PM Signed Subjective HPI HPI Ayl Cory Solorio is a 33 year old female [...] status: current everyday user Substances: Nicotine Devices: Ancestry Substance Use Topics Alcohol use: Yes Comment: [...] - CEPHALEXIN 500 MG CAPSULE Randy Bojorquez APRN.EMBROIDERY DESIGNER Allergies As of Date: 11/22/2023 (Not on [...] As Of (more content not included)... Normal [facility] CNOVon 10-31-2023 CNOV Office Visit (FAMPWS ) ----- ALY SOLORIO ([id number]) 1990 F Date Time Provider Department 10/31/23 10:40 AM [facility]OPE [facility] During your visit today, we recorded [...] Gets stressed out easily. Not productive. Fatigued. [place] more down after stopping. No suicidal ideation. Has followed with gusset ripper. MEDICATIONS: Current Outpatient Medications Medication Sig risankizumab-rzaa [...] status: current everyday user Substances: Nicotine Devices: Outlineble tank Substance Use Topics Alcohol use: Yes [...] normal, oropharynx (more content not included)... [facility] Nurse Visit (OBGYWM) ----- ALY SOLORIO ([id number]) 1990 F Date Time Provider Department 10/17/23 4:00 PM NURSE [facility] WSTR OBGYWM During your visit today, we recorded the following information about you: Blood pressure Weight 108/70 69.9 kg Ford Gutierrez RN 10/17/2023 4:23 PM Signed Patient identified by name and date of . Aly Solorio is here for a Depo Provera injection. Patient brought medication. Date last injected: 07/25/2023 Depo-Provera, 150 mg, administered IM right upper quadrant gluteus, Lot # [id number], expiration date 07/27/2026. Depo-Provera was given without incident. Date of last menses: Patient's last menstrual period was 04/04/2023 (approximate). Irregular bleeding - No Menses ceased - Yes Patient instructed to return to clinic in 12 weeks. [email or web address] Provider KENNY was present in office at time of injection. Ford Gutierrez, CORTNEY Referring Provider: ROQUE POPE [[id number]] Allergies As of Date: 10/17/2023 (No Known Allergies) Date Reviewed: 10/17/2023 Reviewed by: Ford Gutierrez RN - Fully Assessed Reason for Visit: Depo Provera Injection [2335] Primary Visit Diagnosis:Encounter for management and injection [...] for Encounter Date Provider Department Center 10/17/2023 [id number] [facility] *OBGYWM Nella Lizarraga Encounter Status:Closed by FORD GUTIERREZ on 10/17/23 Normal [facility] HCG QUAL UR B/Oon 04-26-2023 status Negative neg - pos [facility] Quality Check Yes [facility] T4 FREE/FREE THYROXon 2022 Free T4 [Mass/Vol] 1.2 ng/dL 0.9 - 1.7 ng/dL [facility] TSH BLDon 12-15-2022 TSH Qn 3.020 m[IU]/L 0.270 - 4.200 mIU/L [facility] Laboratory - Chemistry and C hemistry - challengeon 10-19-2022 CRP [Mass/Vol] <0.9 mg/dL [facility] CBC W Auto Differential pane l (Bld)on 10-18-2022 Basophils (Bld) [#/Vol] <0.11 k/uL [facility] Basophils/100 WBC (Bld) 0.3 % [facility] Differential cell count method Nom (Bld) Auto [facility] Eosinophils (Bld) [#/Vol] 0.19 10*3/uL <0.46 k/uL [facility] Eosinophils/100 WBC (Bld) 2.6 % [facility] Erythrocyte distribution width (RBC) [Ratio] 13.5 % 11.5 - 15.0 % [facility] Hematocrit (Bld) [Volume fraction] 36.7 % 36.0 - 46.0 % [facility] Hemoglobin (Bld) [Mass/Vol] 12.3 g/dL 11.5 - 15.5 g/dL [facility] Immature granulocytes (Bld) [#/Vol] <0.10 k/uL [facility] Immature granulocytes/100 WBC (Bld) 0.3 % [facility] Lymphocytes (Bld) [#/Vol] 2.61 10*3/uL 1.00 - 4.00 k/uL [facility] Lymphocytes/100 WBC (Bld) 35.9 % [facility] MCH (RBC) [Entitic mass] 27.4 pg 26.0 - 34.0 pg [facility] MCHC (RBC) [Mass/Vol] 33.5 g/dL 30.5 - 36.0 g/dL [facility] MCV (RBC) [Entitic vol] 81.7 fL 80.0 - 100.0 fL [facility] Monocytes (Bld) [#/Vol] 0.33 10*3/uL <0.87 k/uL [facility] Monocytes/100 WBC (Bld) 4.5 % [facility] Neutrophils (Bld) [#/Vol] 4.11 10*3/uL 1.45 - 7.50 k/uL [facility] Neutrophils/100 WBC (Bld) 56.4 % [facility] Nucleated RBC (Bld) [#/Vol] <0.01 k/uL [facility] Nucleated RBC/100 WBC (Bld) [Ratio] 0.0 /100 WBC [facility] Platelet mean volume (Bld) [Entitic vol] 8.6 fL Low 9.0 - 12.7 fL [facility] Platelets (Bld) [#/Vol] 246 10*3/uL 150 - 400 k/uL [facility] RBC (Bld) [#/Vol] 4.49 10*6/uL 3.90 - 5.2 0 m/uL [facility] WBC (Bld) [#/Vol] 7.28 10*3/uL 3.70 - 11. 00 k/uL [facility] Comprehensive metabolic 2000 panelon 10-18-2022 Albumin [Mass/Vol] 4.1 g/dL 3.9 - 4.9 g/dL [facility] ALP [Catalytic activity/Vol] 98 U/L 34 - 123 U/L [facility] ALT [Catalytic activity/Vol] 100 U/L High 7 - 38 U/L [facility] Anion gap [Moles/Vol] 12 mmol/L 9 - 18 mmol/L [facility] AST [Catalytic activity/Vol] 59 U/L High 13 - 35 U/L [facility] Bilirubin [Mass/Vol] 0.3 mg/dL 0.2 - 1 .3 mg/dL [facility] Calcium [Mass/Vol] 9.4 mg/dL 8.5 - 10. 2 mg/dL [facility] Chloride [Moles/Vol] 104 mmol/L 97 - 10 5 mmol/L [facility] CO2 [Moles/Vol] 20 mmol/L Low 22 - 30 mmol/L [facility] Creatinine [Mass/Vol] 0.76 mg/dL 0.58 - 0.96 mg/dL [facility] Estimated Glomerular Filtration Rate 108 mL/min/1.73m >=60 mL/min/1.73m [facility] Glucose [Mass/Vol] 148 mg/dL High 74 - 99 mg/dL [facility] Potassium [Moles/Vol] 3.0 mmol/L Low 3.7 - 5.1 mmol/L [facility] Protein [Mass/Vol] 6.8 g/dL 6.3 - 8.0 g/dL [facility] Sodium [Moles/Vol] 136 mmol/L 136 - 144 mmol/L [facility] Urea nitrogen [Mass/Vol] 4 mg/dL Low 7 - 21 mg/dL [facility] STREP A MOLECULAR (POC)on Procedural Control Valid [facility] Strep A (POCT) Positive Abnormal Negative [facility] Absolute lymphocyte countOrd ered By: Dayo Casillas on 09-05-2022 Lymphocytes Auto (Unsp spec) [#/Vol] 3.55 10*3/uL 0.83-4.51 [facility] Basophil percentageOrdered B y: Dayo Casillas on 09-05-2022 Basophils/100 WBC (Bld) 0.4 % 0-1 [facility] Chloride [Moles/Vol] 102 mmol/L 98-107 [facility] Eosinophils/100 WBC (Bld) 0.7 % 0-5 [facility] Glucose [Mass/Vol] 81 mg/dL 74-106 [facility] Neutrophils (Bld) [#/Vol] 9.2 10*3/uL 2.0-7.7 [facility] Neutrophils/100 WBC (Bld) 65.9 % 47-70 [facility] Potassium [Moles/Vol] 3.7 mmol/L 3.5-5.1 [facility] Sodium [Moles/Vol] 136 mmol/L 136-145 [facility] WBC (Bld) [#/Vol] 14.0 10*3/uL 4.4-11.0 [facility] Blood erythrocytes count (nu mber/volume)Ordered By: Dayo Casillas on 09-05-2022 RBC (Bld) [#/Vol] 5.34 10*6/uL 4.2-5.4 [facility] Blood hemoglobin measurement (mass/volume)Ordered By: Dayo Casillas on 09-05-2022 Hemoglobin (Bld) [Mass/Vol] 14.6 g/dL 12.0-15.0 [facility] Blood lymphocytes/100 leukoc ytesOrdered By: Daoy Casillas on 09-05-2022 Lymphocytes/100 WBC (Bld) 25.4 % 19-41 [facility] Blood monocytes/100 leukocyt esOrdered By: Dayo Casillas on 09-05-2022 Monocytes/100 WBC (Bld) 5.6 % 0-10 [facility] Blood platelet mean volumeOr dered By: Dayo Casillas on 09-05-2022 Platelet mean volume (Bld) [Entitic vol] 8.7 fL 6.2-12.0 [facility] Determination of erythrocyte mean corpuscular volume (MCV)Ordered By: Dayo Casillas on 09-05-2022 MCV (RBC) [Entitic vol] 85.8 fL 81-99 [facility] Hematocrit Auto (Bld) [Volum e fraction]Ordered By: Dayo Casillas on 09-05-2022 Hematocrit (Bld) [Volume fraction] 45.8 % 37-47 [facility] Laboratory - Chemistry and C hemistry - challengeOrdered By: Dayo Casillas on 09-05-2022 CO2 [Moles/Vol] 29.0 mmol/L 21.0-32.0 [facility] Urea nitrogen/Creatinine [Mass ratio] 10.2 mg/mg 10-20 [facility] Laboratory - Hematology and Cell countsOrdered By: Dayo Casillas on 09-05-2022 Erythrocyte distribution width (RBC) [Entitic vol] 42.4 fL 35.1-43.9 [facility] Erythrocyte distribution width (RBC) [Ratio] 13.6 % 11.6-14.6 [facility] Immature granulocytes/100 WBC (Bld) 2.000 % 0.0-0.9 [facility] Comment on above: IG% - Immature Granu locytes (promyelocytes, myelocytes and metamyelocytes) > 1% indicates that a LEFT SHIFT is Present. MCH (RBC) [Entitic mass] 27.3 pg 27.0-32.0 [facility] Nucleated RBC/100 WBC (Bld) [Ratio] 0 % 0-5 [facility] MCHC Auto (RBC) [Mass/Vol]Or dered By: Dayo Casillas on 09-05-2022 MCHC (RBC) [Mass/Vol] 31.9 g/dL 32-36 [facility] No Panel InformationOrdered By: Dayo Casillas on 09-05-2022 Troponin I High Sensitivity < 3 pg/mL 3.0-54.0 [facility] Comment on above: Please Note: New Vita t Units and Gender Specific Reference Ranges. For more information see Policy Stat Procedure [place] High Sensitivity Troponin (TNIH) and attachments. D-Dimer Quantitative (PE/DVT) < 0.27 FEU/ug/m 0.27-0.49 [facility] Comment on above: NORMAL D-Dimer level (<0.50) indicates no DVT or PE. Estimated Creatinine Clearance Calc 59.74 ml/min [facility] Estimated GFR (MDRD) Amer 85 mL/min >60 [facility] Comment on above: GFR Calc Estimated GFR (MDRD) Non-Af Amer 70 mL/min >60 [facility] Comment on above: Non- GFR Calc Platelets bldOrdered By: Naa Casillas on 09-05-2022 Platelets (Bld) [#/Vol] 361 10*3/uL 150-450 [facility] Serum or plasma calcium mayra urement (mass/volume)Ordered By: Dayo Casillas on 09-05-2022 Calcium [Mass/Vol] 9.4 mg/dL 8.5-10.1 [facility] Serum or plasma creatinine m easurement (mass/volume)Ordered By: Dayo Casillas on 09-05-2022 Creatinine [Mass/Vol] 0.98 mg/dL 0.55-1.02 [facility] Comment on above: The validity of the calculated GFR & GFRAA in patients over 70 years has not been determined. Clinical correlation is essential. Serum or plasma urea nitroge n measurement (mass/volume)Ordered By: Dayo Casillas on 09-05-2022 Urea nitrogen [Mass/Vol] 10 mg/dL 7-18 [facility] Thin prep Papanicolaou smear with manual screeningOrdered By: Dayo Casillas on 09-05-2022 Thin prep Papanicolaou smear with manual screening 5 5-15 [facility] Absolute lymphocyte countOrd ered By: Dominick Sebastian on 08-29-2022 Lymphocytes Auto (Unsp spec) [#/Vol] 3.26 10*3/uL 0.83-4.51 [facility] Basophil percentageOrdered B y: Dominick Sebastian on 08-29-2022 Basophil percentage 5-10 SEEN /hpf 0-5 [facility] Basophils/100 WBC (Bld) 0.5 % 0-1 [facility] Bilirubin [Mass/Vol] 0.30 mg/dL 0.20-1.00 [facility] Comment on above: For patients on eltr ombopag therapy, use of Dimension [place] TBIL is not recommended. Chloride [Moles/Vol] 110 mmol/L 98-107 [facility] Eosinophils/100 WBC (Bld) 0.8 % 0-5 [facility] Glucose [Mass/Vol] 91 mg/dL 74-106 [facility] Neutrophils (Bld) [#/Vol] 4.7 10*3/uL 2.0-7.7 [facility] Neutrophils/100 WBC (Bld) 54.7 % 47-70 [facility] Potassium [Moles/Vol] 3.7 mmol/L 3.5-5.1 [facility] Protein [Mass/Vol] 7.1 g/dL 6.4-8.2 [facility] Sodium [Moles/Vol] 139 mmol/L 136-145 [facility] WBC (Bld) [#/Vol] 8.6 10*3/uL 4.4-11.0 [facility] Bilirubin Test strip Ql (U)O rdered By: Dominick Sebastian on 08-29-2022 Bilirubin Ql (U) Negative Negative [facility] Blood erythrocytes count (nu mber/volume)Ordered By: Dominick Sebastian on 08-29-2022 RBC (Bld) [#/Vol] 4.93 10*6/uL 4.2-5.4 [facility] Blood hemoglobin measurement (mass/volume)Ordered By: Dominick Sebastian on 08-29-2022 Hemoglobin (Bld) [Mass/Vol] 13.6 g/dL 12.0-15.0 [facility] Blood lymphocytes/100 leukoc ytesOrdered By: Dominick Sebastian on 08-29-2022 Lymphocytes/100 WBC (Bld) 37.9 % 19-41 [facility] Blood monocytes/100 leukocyt esOrdered By: Dominick Sebastian on 08-29-2022 Monocytes/100 WBC (Bld) 5.8 % 0-10 [facility] Blood platelet mean volumeOr dered By: Dominick Sebastian on 08-29-2022 Platelet mean volume (Bld) [Entitic vol] 9.1 fL 6.2-12.0 [facility] Culture, urineOrdered By: Betzy Sebastian on 08-29-2022 Bacteria identified Cx Nom (U) Mixed Gram Pos & Gram Neg Org [facility] Determination of erythrocyte mean corpuscular volume (MCV)Ordered By: Dominick Sebastian on 08-29-2022 MCV (RBC) [Entitic vol] 84.6 fL 81-99 [facility] Hematocrit Auto (Bld) [Volum e fraction]Ordered By: Dominick Sebastian on 08-29-2022 Hematocrit (Bld) [Volume fraction] 41.7 % 37-47 [facility] Ketones Test strip Ql (U)Ord ered By: Dominick Sebastian on 08-29-2022 Ketones Ql (U) Negative Negative [facility] Laboratory - Chemistry and C hemistry - challengeOrdered By: Dominick Sebastian on 08-29-2022 ALP [Catalytic activity/Vol] 53 U/L 45-117 [facility] ALT [Catalytic activity/Vol] 30 U/L 13-56 [facility] CO2 [Moles/Vol] 22.0 mmol/L 21.0-32.0 [facility] Globulin (S) [Mass/Vol] 3.9 g/dL 2.2-4.2 [facility] HCG ( test) Ql (U) Negative [facility] Comment on above: Very dilute urine sp ecimens, as indicated by a low specificgravity, may not contain technical account representative levels of hCG. If is still suspected, a first morning urinespecimen should be collected 48 hours later and tested. Lipase [Catalytic activity/Vol] 29 U/L 13-75 [facility] Comment on above: Please note:LIPASE r evised reference range effective 22. New Lipase methodology. Expected to produce lower values than the previous assay method. NEW Reference Range: 13 - 75 U/L Urea nitrogen/Creatinine [Mass ratio] 11.6 mg/mg 10-20 [facility] Laboratory - Hematology and Cell countsOrdered By: Dominick Sebastian on 08-29-2022 Erythrocyte distribution width (RBC) [Entitic vol] 41.8 fL 35.1-43.9 [facility] Erythrocyte distribution width (RBC) [Ratio] 13.5 % 11.6-14.6 [facility] Immature granulocytes/100 WBC (Bld) 0.300 % 0.0-0.9 [facility] Comment on above: IG% - Immature Granu locytes (promyelocytes, myelocytes and metamyelocytes) > 1% indicates that a LEFT SHIFT is Present. MCH (RBC) [Entitic mass] 27.6 pg 27.0-32.0 [facility] Nucleated RBC/100 WBC (Bld) [Ratio] 0 % 0-5 [facility] MCHC Auto (RBC) [Mass/Vol]Or dered By: Dominick Sebastian on 08-29-2022 MCHC (RBC) [Mass/Vol] 32.6 g/dL 32-36 [facility] Mucus LM Ql (Urine sed)Order ed By: Dominick Sebastian on 08-29-2022 Mucus Ql (Urine sed) 0 SEEN /hpf [facility] Nitrite Test strip Ql (U)Ord ered By: Dominick Sebastian on 08-29-2022 Nitrite Ql (U) Negative Negative [facility] No Panel InformationOrdered By: Dominick Sebastian on 08-29-2022 Estimated Creatinine Clearance Calc 106.56 ml/min [facility] Estimated GFR (MDRD) Amer 99 mL/min >60 [facility] Comment on above: GFR Calc Estimated GFR (MDRD) Non-Af Amer 82 mL/min >60 [facility] Comment on above: Non- GFR Calc Platelets bldOrdered By: Viola Sebastian on 08-29-2022 Platelets (Bld) [#/Vol] 335 10*3/uL 150-450 [facility] Protein Test strip Ql (U)Ord ered By: Dominick Sebastian on 08-29-2022 Protein Ql (U) Negative Negative [facility] Serum or plasma albumin mayra urement (mass/volume)Ordered By: Dominick Sebastian on 08-29-2022 Albumin [Mass/Vol] 3.2 g/dL 3.2-5.0 [facility] Serum or plasma albumin/glob ulin mass ratioOrdered By: Dominick Sebastian on 08-29-2022 Albumin/Globulin [Mass ratio] 0.8 {ratio} 0.9-2.4 [facility] Serum or plasma calcium mayra urement (mass/volume)Ordered By: Dominick Sebastian on 08-29-2022 Calcium [Mass/Vol] 8.6 mg/dL 8.5-10.1 [facility] Serum or plasma creatinine m easurement (mass/volume)Ordered By: Dominick Sebastian on 08-29-2022 Creatinine [Mass/Vol] 0.86 mg/dL 0.55-1.02 [facility] Comment on above: The validity of the calculated GFR & GFRAA in patients over 70 years has not been determined. Clinical correlation is essential. Serum or plasma urea nitroge n measurement (mass/volume)Ordered By: Dominick Sebastian on 08-29-2022 Urea nitrogen [Mass/Vol] 10 mg/dL 7-18 [facility] Squamous epithelial cells de tection in urine sediment by light microscopyOrdered By: Dominick Sebastian on 08-29-2022 Epithelial cells.squamous LM Ql (Urine sed) 5-10 SEEN /hpf 5-10 [facility] Thin prep Papanicolaou smear with manual screeningOrdered By: Dominick Sebastian on 08-29-2022 Thin prep Papanicolaou smear with manual screening 19 U/L 15-37 [facility] Thin prep Papanicolaou smear with manual screening 7 5-15 [facility] Urine blood detectionOrdered By: Domincik Sebastian on 08-29-2022 RBC Ql (U) 250 /ul Negative [facility] RBC Ql (U) 0-5 SEEN /hpf 0-5 [facility] Urine clarityOrdered By: Viola Sebastian on 08-29-2022 Clarity (U) Sl. Cloudy Clear [facility] Urine color determinationOrd ered By: Dominick Sebastian on 08-29-2022 Color (U) Yellow Yellow [facility] Urine glucose detectionOrder ed By: Dominick Sebastian on 08-29-2022 Glucose Ql (U) Normal mg/dl Normal [facility] Urine leukocyte esterase det ection by dipstickOrdered By: Dominick Sebastian on 08-29-2022 Leukocyte esterase Test strip Ql (U) 500 /ul Negative [facility] Urine pHOrdered By: Dominick ayala on 08-29-2022 pH (U) 6.0 [pH] 5.0 - 8.0 [facility] Urine sediment bacteria coun t by microscopy (number/high power field)Ordered By: Dominick Sebastian on 08-29-2022 Bacteria LM.HPF (Urine sed) [#/Area] 1 /[HPF] None Seen [facility] Urine specific gravity measu rementOrdered By: Dmoinick Sebastian on 08-29-2022 Specific gravity (U) [Rel density] 1.015 1.002-1.030 [facility] Urobilinogen Auto test strip Ql (U)Ordered By: Dominick Sebastian on 08-29-2022 Urobilinogen Ql (U) Normal mg/dl Normal [facility] CT ENTEROGRAPHY W IVCONon [facility] Basophil percentageOrdered B y: Carmelo Puckett on 07-13-2022 Bilirubin [Mass/Vol] 0.30 mg/dL 0.20-1.00 [facility] Comment on above: For patients on eltr ombopag therapy, use of Dimension [place] TBIL is not recommended. Protein [Mass/Vol] 7.1 g/dL 6.4-8.2 [facility] Direct bilirubinOrdered By: Carmelo Puckett on 07-13-2022 Bilirubin.direct [Mass/Vol] 0.11 mg/dL 0.00-0.30 [facility] Laboratory - Chemistry and C hemistry - challengeOrdered By: Carmelo Puckett on 07-13-2022 ALP [Catalytic activity/Vol] 56 U/L 45-117 [facility] ALT [Catalytic activity/Vol] 40 U/L 13-56 [facility] Globulin (S) [Mass/Vol] 3.7 g/dL 2.2-4.2 [facility] Lipase [Catalytic activity/Vol] 30 U/L 13-75 [facility] Comment on above: Please note:LIPASE r evised reference range effective 22. New Lipase methodology. Expected to produce lower values than the previous assay method. NEW Reference Range: 13 - 75 U/L Serum or plasma albumin mayra urement (mass/volume)Ordered By: Carmelo Puckett on 07-13-2022 Albumin [Mass/Vol] 3.4 g/dL 3.2-5.0 [facility] Thin prep Papanicolaou smear with manual screeningOrdered By: Carmelo Puckett on 07-13-2022 Thin prep Papanicolaou smear with manual screening 27 U/L 15-37 [facility] Absolute lymphocyte countOrd ered By: Dr. Samayoa on 07-12-2022 Lymphocytes Auto (Unsp spec) [#/Vol] 2.51 10*3/uL 0.83-4.51 [facility] Basophil percentageOrdered B y: Dr. Samayoa on 07-12-2022 Basophil percentage 0-5 SEEN /hpf 0-5 [facility] Basophils/100 WBC (Bld) 0.5 % 0-1 [facility] Chloride [Moles/Vol] 108 mmol/L 98-107 [facility] Eosinophils/100 WBC (Bld) 0.7 % 0-5 [facility] Glucose [Mass/Vol] 92 mg/dL 74-106 [facility] Neutrophils (Bld) [#/Vol] 5.4 10*3/uL 2.0-7.7 [facility] Neutrophils/100 WBC (Bld) 63.7 % 47-70 [facility] Potassium [Moles/Vol] 3.9 mmol/L 3.5-5.1 [facility] Sodium [Moles/Vol] 139 mmol/L 136-145 [facility] WBC (Bld) [#/Vol] 8.5 10*3/uL 4.4-11.0 [facility] Beta hCG serum qualOrdered B y: Dr. Samayoa on 07-12-2022 Beta HCG ( test) Ql Negative [facility] Bilirubin Test strip Ql (U)O rdered By: Dr. Samayoa on 07-12-2022 Bilirubin Ql (U) Negative Negative [facility] Blood erythrocytes count (nu mber/volume)Ordered By: Dr. Samayoa on 07-12-2022 RBC (Bld) [#/Vol] 5.00 10*6/uL 4.2-5.4 [facility] Blood hemoglobin measurement (mass/volume)Ordered By: Dr. Samayoa on 07-12-2022 Hemoglobin (Bld) [Mass/Vol] 13.8 g/dL 12.0-15.0 [facility] Blood lymphocytes/100 leukoc ytesOrdered By: Dr. Samayoa on 07-12-2022 Lymphocytes/100 WBC (Bld) 29.5 % 19-41 [facility] Blood monocytes/100 leukocyt esOrdered By: Dr. Samayoa on 07-12-2022 Monocytes/100 WBC (Bld) 5.2 % 0-10 [facility] Blood platelet mean volumeOr dered By: Dr. Samayoa on 07-12-2022 Platelet mean volume (Bld) [Entitic vol] 8.6 fL 6.2-12.0 [facility] Determination of erythrocyte mean corpuscular volume (MCV)Ordered By: Dr. Samayoa on 07-12-2022 MCV (RBC) [Entitic vol] 82.6 fL 81-99 [facility] Hematocrit Auto (Bld) [Volum e fraction]Ordered By: Dr. Samayoa on 07-12-2022 Hematocrit (Bld) [Volume fraction] 41.3 % 37-47 [facility] Ketones Test strip Ql (U)Ord ered By: Dr. Samayoa on 07-12-2022 Ketones Ql (U) Negative Negative [facility] Laboratory - Chemistry and C hemistry - challengeOrdered By: Dr. Samayoa on 07-12-2022 CO2 [Moles/Vol] 27.0 mmol/L 21.0-32.0 [facility] Urea nitrogen/Creatinine [Mass ratio] 12.9 mg/mg 10-20 [facility] Laboratory - Hematology and Cell countsOrdered By: Dr. Samayoa on 07-12-2022 Erythrocyte distribution width (RBC) [Entitic vol] 39.3 fL 35.1-43.9 [facility] Erythrocyte distribution width (RBC) [Ratio] 13.2 % 11.6-14.6 [facility] Immature granulocytes/100 WBC (Bld) 0.400 % 0.0-0.9 [facility] Comment on above: IG% - Immature Granu locytes (promyelocytes, myelocytes and metamyelocytes) > 1% indicates that a LEFT SHIFT is Present. MCH (RBC) [Entitic mass] 27.6 pg 27.0-32.0 [facility] Nucleated RBC/100 WBC (Bld) [Ratio] 0 % 0-5 [facility] MCHC Auto (RBC) [Mass/Vol]Or dered By: Dr. Samayoa on 07-12-2022 MCHC (RBC) [Mass/Vol] 33.4 g/dL 32-36 [facility] Mucus LM Ql (Urine sed)Order ed By: Dr. Samayoa on 07-12-2022 Mucus Ql (Urine sed) 0 SEEN /hpf [facility] Nitrite Test strip Ql (U)Ord ered By: Dr. Samayoa on 07-12-2022 Nitrite Ql (U) Negative Negative [facility] No Panel InformationOrdered By: Dr. Samayoa on 07-12-2022 Estimated Creatinine Clearance Calc 141.69 ml/min [facility] Estimated GFR (MDRD) Amer 126 mL/min >60 [facility] Comment on above: GFR Calc Estimated GFR (MDRD) Non-Af Amer 104 mL/min >60 [facility] Comment on above: Non- GFR Calc Platelets bldOrdered By: Dr. Samayoa on 07-12-2022 Platelets (Bld) [#/Vol] 295 10*3/uL 150-450 [facility] Protein Test strip Ql (U)Ord ered By: Dr. Samayoa on 07-12-2022 Protein Ql (U) Negative Negative [facility] Serum or plasma calcium mayra urement (mass/volume)Ordered By: Dr. Samayoa on 07-12-2022 Calcium [Mass/Vol] 8.9 mg/dL 8.5-10.1 [facility] Serum or plasma creatinine m easurement (mass/volume)Ordered By: Dr. Samayoa on 07-12-2022 Creatinine [Mass/Vol] 0.70 mg/dL 0.55-1.02 [facility] Comment on above: The validity of the calculated GFR & GFRAA in patients over 70 years has not been determined. Clinical correlation is essential. Serum or plasma urea nitroge n measurement (mass/volume)Ordered By: Dr. Samayoa on 07-12-2022 Urea nitrogen [Mass/Vol] 9 mg/dL 7-18 [facility] Squamous epithelial cells de tection in urine sediment by light microscopyOrdered By: Dr. Samayoa on 07-12-2022 Epithelial cells.squamous LM Ql (Urine sed) 0-5 SEEN /hpf 5-10 [facility] Thin prep Papanicolaou smear with manual screeningOrdered By: Dr. Samayoa on 07-12-2022 Thin prep Papanicolaou smear with manual screening 4 5-15 [facility] Urine blood detectionOrdered By: Dr. Samayoa on 07-12-2022 RBC Ql (U) 10 /ul Negative [facility] RBC Ql (U) 0 SEEN /hpf 0-5 [facility] Urine clarityOrdered By: Dr. Samayoa on 07-12-2022 Clarity (U) Clear Clear [facility] Urine color determinationOrd ered By: Dr. Samayoa on 07-12-2022 Color (U) Yellow Yellow [facility] Urine glucose detectionOrder ed By: Dr. Samayoa on 07-12-2022 Glucose Ql (U) Normal mg/dl Normal [facility] Urine leukocyte esterase det ection by dipstickOrdered By: Dr. Samayoa on 07-12-2022 Leukocyte esterase Test strip Ql (U) 100 /ul Negative [facility] Urine pHOrdered By: Dr. Aidee lakhani on 07-12-2022 pH (U) 6.5 [pH] 5.0 - 8.0 [facility] Urine sediment bacteria coun t by microscopy (number/high power field)Ordered By: Dr. Samayoa on 07-12-2022 Bacteria LM.HPF (Urine sed) [#/Area] 0 /[HPF] None Seen [facility] Urine specific gravity measu rementOrdered By: Dr. Samayoa on 07-12-2022 Specific gravity (U) [Rel density] 1.010 1.002-1.030 [facility] Urobilinogen Auto test strip Ql (U)Ordered By: Dr. Samayoa on 07-12-2022 Urobilinogen Ql (U) Normal mg/dl Normal [facility] US THYROID/PARATHYROIDon [facility] Absolute lymphocyte counton 02-06-2022 Lymphocytes Auto (Unsp spec) [#/Vol] 2.39 10*3/uL 0.83-4.51 [facility] Work Phone: Basophil percentageon 2021 Basophils/100 WBC (Bld) 0.3 % 0-1 [facility] Work Phone: Chloride [Moles/Vol] 114 mmol/L 98-107 [facility] Work Phone: Eosinophils/100 WBC (Bld) 0.9 % 0-5 [facility] Work Phone: Glucose [Mass/Vol] 66 mg/dL 74-106 [facility] Work Phone: Neutrophils (Bld) [#/Vol] 3.5 10*3/uL 2.0-7.7 [facility] Work Phone: Neutrophils/100 WBC (Bld) 54.4 % 47-70 [facility] Work Phone: Potassium [Moles/Vol] 3.4 mmol/L 3.5-5.1 [facility] Work Phone: Sodium [Moles/Vol] 141 mmol/L 136-145 [facility] Work Phone: WBC (Bld) [#/Vol] 6.4 10*3/uL 4.4-11.0 [facility] Work Phone: Blood erythrocytes count (nu mber/volume)on 02-06-2022 RBC (Bld) [#/Vol] 4.18 10*6/uL 4.2-5.4 [facility] Work Phone: Blood hemoglobin measurement (mass/volume)on 02-06-2022 Hemoglobin (Bld) [Mass/Vol] 11.8 g/dL 12.0-15.0 [facility] Work Phone: Blood lymphocytes/100 leukoc yteson 02-06-2022 Lymphocytes/100 WBC (Bld) 37.6 % 19-41 [facility] Work Phone: Blood monocytes/100 leukocyt eson 02-06-2022 Monocytes/100 WBC (Bld) 6.5 % 0-10 [facility] Work Phone: Blood platelet mean volumeon 02-06-2022 Platelet mean volume (Bld) [Entitic vol] 8.7 fL 6.2-12.0 [facility] Work Phone: Determination of erythrocyte mean corpuscular volume (MCV)on 02-06-2022 MCV (RBC) [Entitic vol] 86.1 fL 81-99 [facility] Work Phone: Hematocrit Auto (Bld) [Volum e fraction]on 02-06-2022 Hematocrit (Bld) [Volume fraction] 36.0 % 37-47 [facility] Work Phone: [phone] Laboratory - Chemistry and C hemistry - challengeon 02-06-2022 CO2 [Moles/Vol] 21.0 mmol/L 21.0-32.0 [facility] Work Phone: Urea nitrogen/Creatinine [Mass ratio] 13.0 mg/mg 10-20 [facility] Work Phone: Laboratory - Hematology and Cell countson 02-06-2022 Erythrocyte distribution width (RBC) [Entitic vol] 40.9 fL 35.1-43.9 [facility] Work Phone: Erythrocyte distribution width (RBC) [Ratio] 13.0 % 11.6-14.6 [facility] Work Phone: Immature granulocytes/100 WBC (Bld) 0.300 % 0.0-0.9 [facility] Work Phone: Comment on above: IG% - Immature Granu locytes (promyelocytes, myelocytes and metamyelocytes) > 1% indicates that a LEFT SHIFT is Present. MCH (RBC) [Entitic mass] 28.2 pg 27.0-32.0 [facility] Work Phone: Nucleated RBC/100 WBC (Bld) [Ratio] 0 % 0-5 [facility] Work Phone: MCHC Auto (RBC) [Mass/Vol]on 02-06-2022 MCHC (RBC) [Mass/Vol] 32.8 g/dL 32-36 [facility] Work Phone: No Panel Informationon 02-06 Estimated Creatinine Clearance Calc 137.08 ml/min [facility] Work Phone: Estimated GFR (MDRD) Amer 171 mL/min >60 [facility] Work Phone: Comment on above: GFR Calc Estimated GFR (MDRD) Non-Af Amer 141 mL/min >60 [facility] Work Phone: Comment on above: Non- GFR Calc Platelets bldon 02-06-2022 Platelets (Bld) [#/Vol] 226 10*3/uL 150-450 [facility] Work Phone: Serum or plasma calcium mayra urement (mass/volume)on 02-06-2022 Calcium [Mass/Vol] 7.7 mg/dL 8.5-10.1 [facility] Work Phone: Serum or plasma creatinine m easurement (mass/volume)on 02-06-2022 Creatinine [Mass/Vol] 0.54 mg/dL 0.55-1.02 [facility] Work Phone: Comment on above: The validity of the calculated GFR & GFRAA in patients over 70 years has not been determined. Clinical correlation is essential. Serum or plasma urea nitroge n measurement (mass/volume)on 02-06-2022 Urea nitrogen [Mass/Vol] 7 mg/dL 7-18 [facility] Work Phone: Thin prep Papanicolaou smear with manual screeningon 02-06-2022 Thin prep Papanicolaou smear with manual screening 6 5-15 [facility] Work Phone: Absolute lymphocyte counton 02-04-2022 Lymphocytes Auto (Unsp spec) [#/Vol] 3.11 10*3/uL 0.83-4.51 [facility] Work Phone: Basophil percentageon 2021 Basophil percentage 5-10 SEEN /hpf 0-5 [facility] Work Phone: Basophils/100 WBC (Bld) 0.2 % 0-1 [facility] Work Phone: Bilirubin [Mass/Vol] 0.80 mg/dL 0.20-1.00 [facility] Work Phone: Comment on above: For patients on eltr ombopag therapy, use of Dimension [place] TBIL is not recommended. Chloride [Moles/Vol] 107 mmol/L 98-107 [facility] Work Phone: Eosinophils/100 WBC (Bld) 0.4 % 0-5 [facility] Work Phone: Glucose [Mass/Vol] 96 mg/dL 74-106 [facility] Work Phone: Neutrophils (Bld) [#/Vol] 9.8 10*3/uL 2.0-7.7 [facility] Work Phone: Neutrophils/100 WBC (Bld) 71.3 % 47-70 [facility] Work Phone: Potassium [Moles/Vol] 3.7 mmol/L 3.5-5.1 [facility] Work Phone: Protein [Mass/Vol] 7.7 g/dL 6.4-8.2 [facility] Work Phone: Sodium [Moles/Vol] 138 mmol/L 136-145 [facility] Work Phone: [phone] WBC (Bld) [#/Vol] 13.8 10*3/uL 4.4-11.0 [facility] Work Phone: Beta hCG serum qualon 2021 Beta HCG ( test) Ql Negative [facility] Work Phone: Bilirubin Test strip Ql (U)o n 02-04-2022 Bilirubin Ql (U) Negative Negative [facility] Work Phone: Blood erythrocytes count (nu mber/volume)on 02-04-2022 RBC (Bld) [#/Vol] 5.35 10*6/uL 4.2-5.4 [facility] Work Phone: Blood hemoglobin measurement (mass/volume)on 02-04-2022 Hemoglobin (Bld) [Mass/Vol] 14.4 g/dL 12.0-15.0 [facility] Work Phone: Blood lymphocytes/100 leukoc yteson 02-04-2022 Lymphocytes/100 WBC (Bld) 22.6 % 19-41 [facility] Work Phone: [phone] Blood monocytes/100 leukocyt eson 02-04-2022 Monocytes/100 WBC (Bld) 5.0 % 0-10 [facility] Work Phone: Blood platelet mean volumeon 02-04-2022 Platelet mean volume (Bld) [Entitic vol] 8.4 fL 6.2-12.0 [facility] Work Phone: Determination of erythrocyte mean corpuscular volume (MCV)on 02-04-2022 MCV (RBC) [Entitic vol] 82.1 fL 81-99 [facility] Work Phone: Direct bilirubinon 2 Bilirubin.direct [Mass/Vol] 0.20 mg/dL 0.00-0.30 [facility] Work Phone: Hematocrit Auto (Bld) [Volum e fraction]on 02-04-2022 Hematocrit (Bld) [Volume fraction] 43.9 % 37-47 [facility] Work Phone: Ketones Test strip Ql (U)on 02-04-2022 Ketones Ql (U) 5 mg/dl Negative [facility] Work Phone: Laboratory - Chemistry and C hemistry - challengeon 02-04-2022 ALP [Catalytic activity/Vol] 60 U/L 45-117 [facility] Work Phone: ALT [Catalytic activity/Vol] 43 U/L 13-56 [facility] Work Phone: CO2 [Moles/Vol] 27.0 mmol/L 21.0-32.0 [facility] Work Phone: Globulin (S) [Mass/Vol] 3.9 g/dL 2.2-4.2 [facility] Work Phone: Lipase [Catalytic activity/Vol] 94 U/L 73-393 [facility] Work Phone: Urea nitrogen/Creatinine [Mass ratio] 13.2 mg/mg 10-20 [facility] Work Phone: Laboratory - Hematology and Cell countson 02-04-2022 Erythrocyte distribution width (RBC) [Entitic vol] 39.1 fL 35.1-43.9 [facility] Work Phone: Erythrocyte distribution width (RBC) [Ratio] 13.2 % 11.6-14.6 [facility] Work Phone: Immature granulocytes/100 WBC (Bld) 0.500 % 0.0-0.9 [facility] Work Phone: Comment on above: IG% - Immature Granu locytes (promyelocytes, myelocytes and metamyelocytes) > 1% indicates that a LEFT SHIFT is Present. MCH (RBC) [Entitic mass] 26.9 pg 27.0-32.0 [facility] Work Phone: Nucleated RBC/100 WBC (Bld) [Ratio] 0 % 0-5 [facility] Work Phone: MCHC Auto (RBC) [Mass/Vol]on 02-04-2022 MCHC (RBC) [Mass/Vol] 32.8 g/dL 32-36 [facility] Work Phone: Mucus LM Ql (Urine sed)on Mucus Ql (Urine sed) 0 SEEN /hpf [facility] Work Phone: Nitrite Test strip Ql (U)on 02-04-2022 Nitrite Ql (U) Negative Negative [facility] Work Phone: No Panel Informationon 02-04 Estimated Creatinine Clearance Calc 77.75 ml/min [facility] Work Phone: Estimated GFR (MDRD) Amer 115 mL/min >60 [facility] Work Phone: Comment on above: GFR Calc Estimated GFR (MDRD) Non-Af Amer 95 mL/min >60 [facility] Work Phone: Comment on above: Non- GFR Calc Platelets bldon 02-04-2022 Platelets (Bld) [#/Vol] 378 10*3/uL 150-450 [facility] Work Phone: Protein Test strip Ql (U)on 02-04-2022 Protein Ql (U) 30 mg/dl Negative [facility] Work Phone: Serum or plasma albumin mayra urement (mass/volume)on 02-04-2022 Albumin [Mass/Vol] 3.8 g/dL 3.2-5.0 [facility] Work Phone: Serum or plasma calcium mayra urement (mass/volume)on 02-04-2022 Calcium [Mass/Vol] 9.3 mg/dL 8.5-10.1 [facility] Work Phone: Serum or plasma creatinine m easurement (mass/volume)on 02-04-2022 Creatinine [Mass/Vol] 0.76 mg/dL 0.55-1.02 [facility] Work Phone: Comment on above: The validity of the calculated GFR & GFRAA in patients over 70 years has not been determined. Clinical correlation is essential. Serum or plasma urea nitroge n measurement (mass/volume)on 02-04-2022 Urea nitrogen [Mass/Vol] 10 mg/dL 7-18 [facility] Work Phone: Squamous epithelial cells de tection in urine sediment by light microscopyon 02-04-2022 Epithelial cells.squamous LM Ql (Urine sed) 0-5 SEEN /hpf 5-10 [facility] Work Phone: Thin prep Papanicolaou smear with manual screeningon 02-04-2022 Thin prep Papanicolaou smear with manual screening 25 U/L 15-37 [facility] Work Phone: Thin prep Papanicolaou smear with manual screening 4 5-15 [facility] Work Phone: Urine blood detectionon - RBC Ql (U) 25 /ul Negative [facility] Work Phone: RBC Ql (U) 0 SEEN /hpf 0-5 [facility] Work Phone: Urine clarityon 02-04-2022 Clarity (U) Clear Clear [facility] Work Phone: Urine color determinationon 02-04-2022 Color (U) Yellow Yellow [facility] Work Phone: Urine glucose detectionon Glucose Ql (U) Normal mg/dl Normal [facility] Work Phone: Urine leukocyte esterase det ection by dipstickon 02-04-2022 Leukocyte esterase Test strip Ql (U) 100 /ul Negative [facility] Work Phone: Urine pHon 02-04-2022 pH (U) 5.0 [pH] 5.0 - 8.0 [facility] Work Phone: Urine sediment bacteria coun t by microscopy (number/high power field)on 02-04-2022 Bacteria LM.HPF (Urine sed) [#/Area] 2 /[HPF] None Seen [facility] Work Phone: Urine specific gravity measu rementon 02-04-2022 Specific gravity (U) [Rel density] 1.025 1.002-1.030 [facility] Work Phone: Urobilinogen Auto test strip Ql (U)on 02-04-2022 Urobilinogen Ql (U) Normal mg/dl Normal [facility] Work Phone: No Panel Informationon 12-11 IMPRESSION: Negative. Process Improvement Analyst: MARIAN Transcribe Date/Time: Dec 12 2019 6:45P Dictated by : CARINE ROSENBAUM MD This examination was interpreted and the report reviewed and electronically signed by: CARINE ROSENBAUM MD on Dec 12 2019 6:46PM [facility] DIVISION OF RADIOLOGY Radiology Study observation (narrative) [facility] No Panel InformationOrdered By: Ccf Provider on 12-12-2019 [facility] XR Knee - left 4 [...] AP/PA BOTH+LAT/RUFUS RT, XR KNEE 4V AP/PA BOTH+LAT/RFUUS LT COMPARISON: None FINDINGS: No fractures or dislocations are seen. No significant joint effusion or joint body is evident. The joint spaces are maintained without evidence for significant degenerative or arthritic change. DIVISION OF RADIOLOGY Provider, [facility] - 12/12/2019 * * *Final Report* * [...] degenerative or arthritic change. IMPRESSION IMPRESSION: Negative. Process Improvement Analyst: MARIAN Transcribe Date/Time: Dec 12 2019 6:45P Dictated by : CARINE ROSENBAUM MD This examination was interpreted and the report reviewed and electronically signed by: CARINE ROSENBAUM MD on Dec 12 2019 6:46PM [facility] XR Knee - right 4 Viewson [...] or arthritic change. DIVISION OF RADIOLOGY Provider, [facility] - 12/12/2019 * * *Final Report* * [...] degenerative or arthritic change. IMPRESSION IMPRESSION: Negative. Process Improvement Analyst: MARIAN Transcribe Date/Time: Dec 12 2019 6:45P Dictated by : CARINE ROSENBAUM MD This examination was interpreted and the report reviewed and electronically signed by: CARINE ROSENBAUM MD on Dec 12 2019 6:46PM [facility] Group B Strep PCRon 03-19-19 19 Group B Strep PCR Positive [facility] Comment on above: Order Comment: For p ositive results only; Penicillin is the recommended antibiotic for the treatment of Group B Streptococcal disease. In case of penicillin allergy, Clindamycin may be used. All Negative GBS Screens by PCR will be confirmed by culture. Performed By: #### 2 [id number] #### LAURO Microbiology Subsection [address] [place] [address] U Drug Screenon 03-16-2018 U Amph Scr Negative [facility] Comment on above: Performed By: #### 2 [id number] #### LAURO RemHemo [address] [place] [address] U Jordyn Scr Negative [facility] Comment on above: Performed By: #### 2 [id number] #### LAURO RemHemo [address] [place] [address] U Benzodia Scr Negative [facility] Comment on above: Performed By: #### 2 [id number] #### LAURO RemHemo [address] [place] [address] U Cannab Scr Negative [facility] Comment on above: Performed By: #### 2 [id number] #### LAURO RemHemo [address] [place] [address] U Cocaine Scr Negative [facility] Comment on above: Performed By: #### 2 [id number] #### LAURO RemHemo [address] [place] [address] U Opiate Scr Negative [facility] Comment on above: Performed By: #### 2 [id number] #### LAURO Rem[address]emo [address] [place] [address] U PCP Scr Negative Normal [facility] Comment on above: Performed By: #### 2 [id number] #### LAURO Mathisrenetta [facility] [place] [address] Genetics - [facility] Genetics - [facility] Chief ComplaintPatient was seen on 10/09/17 via Telemedicine as a follow-up after a recent inpatient evaluation and stay at [facility]. History of Present IllnessAly is a 27 yo who was 13+5 at time of our outpatient follow-up based on EDC 04/05/18.She had a recent antepartum admission after transfer from [place] with headache and concern for a new [...] loss of urinary or bowel control.During her [facility] hospital stay, a hypercoagulability work-up was negative, [...] 25 MG TABS; Take 1 tablet daily;Therapy: (Recorded:[id number]) to Recorded Dispense: 0 Days ; #: Sufficient Tablet; Refill: 0; YING = N; Record; Last Updated By: Kay Gonzalez; 10/06/2017 8:38:12 AM Humira Pen 40 MG/0.4ML Subcutaneous Pen-injector Kit;Therapy: (Recorded:[id number]) to Recorded Dispense: 0 Days ; #: [...] 25 MG TABS; Take 1 tablet daily;Therapy: (Recorded:[id number]) to RecordedHumira Pen 40 MG/0.4ML Subcutaneous Pen-injector Kit;Therapy: (Recorded:34Icg1084) to RecordedPrenatal One Daily TABS;Therapy: (Recorded:06Oct2017) to Recorded Signatures Electronically signed by : Elzbieta Russell MD; Dec 05 2017 8:29PM EST (Author) Normal [facility]works US After 1st Trime steron 11-21-2017 US After 1st Trimester Exam Date/Time: 11/21/2017 10:12 EDT Reason for Exam: DATES / ANATOMY;Standard Anatomy Report STUDY: US After 1st Trimester 11/21/2017 10:12 am INDICATION: Standard Anatomy. COMPARISON: None. ACCESSION NUMBER(S): [id number] ORDERING CLINICIAN: José Antonio Friedman TECHNIQUE: Routine [...] by: Catrachito Aguillon MD Technologist: SHANTELLE Normal [facility] AFP Tetra Profileon 11-03-19 18 AFP TP AFP Mom Value 1.04 Normal [facility] Comment on above: Performed By: #### 1 [id number] #### LAURO Send Outs Subsection [address] [place] [address] AFP TP AFP Sona EIA 43.7 ng/mL Normal [facility] Comment on above: Performed By: #### 1 [id number] #### LAURO Send Outs Subsection [address] [place] [address] AFP TP Comments: Comment [facility] Comment on above: Result Comment: Alida Garcia, Ph.D., [facility] Principal Genetics Co Founder References: Available Upon Request. Multiples Of Median Cutoffs Abbreviation Definitions For AFP Elevations IDD- Insulin Dep Diabetes Richter 2.5 Black 2.8 OSBR- Open Spina Bifida IDD 2.0 Twins 4.5 Risk DSR Cutoff 1:270 DSR- Down Syndrome Risk T18 Cutoff 1:100 T18- Trisomy 18 Down Syndrome and Trisomy 18 screening are considered Investigational For further inquiries contact [facility] at [phone]. Performed At: [facility] [address] [place], [place] [id number] Yohannes Olson MD Ph:[phone] Performed By: #### 1 [id number] #### LAURO Send Outs Subsection [address] [place] [address] AFP TP NATALIE Mom Value 2.06 Normal [facility] Comment on above: Performed By: #### 1 [id number] #### LAURO Send Outs Subsection [address] [place] [address] AFP TP NATALIE Value EIA 368.89 pg/mL Normal [facility] Comment on above: Performed By: #### 1 [id number] #### LAURO Send Outs Subsection [address] [place] [address] AFP TP DSR 2nd Times 1IN 1723 [facility] Comment on above: Performed By: #### 1 [id number] #### LAURO Send Outs Subsection [facility] [place] [address] AFP TP DSR(by Age) 1IN 948 Normal [facility] Comment on above: Performed By: #### 1 [id number] #### LAURO Send Outs Subsection [facility] [place] [address] AFP TP GA Base Ultrasound [facility] Comment on above: Result Comment: 17.3 on 10/31/2017 Performed By: #### 1 [id number] #### LAURO Send Outs Subsection [address] [place] [address] AFP TP Gest Age 17.3 week(s) [facility] Comment on above: Performed By: #### 1 [id number] #### LAURO Send Outs Subsection [facility] [place] [address] AFP TP hCG Mom 0.74 [facility] Comment on above: Performed By: #### 1 [id number] #### LAURO Send Outs Subsection [facility] [place] [address] AFP TP Insulin Dep Diabetes No [facility] Comment on above: Performed By: #### 1 [id number] #### LAURO Send Outs Subsection [facility] [place] [address] AFP TP Interp Comment [facility] Comment on above: Result Comment: Inte [...] identifies 60% of Trisomy 18 pregnancies. The [employer] recommends amniocentesis be offered to women age 35 and older. Recalculations are not recommended when gestational dating by LMP and ultrasound are within 10 days. Performed By: #### 1 [id number] #### LAURO Send Outs Subsection [address] [place] [address] AFP TP Mat Age LUCILA 26.6 [facility] Comment on above: Performed By: #### 1 [id number] #### LAURO Send Outs Subsection [address] [place] [address] AFP TP Mult Gest No [facility] Comment on above: Performed By: #### 1 [id number] #### LAURO Send Outs Subsection [address] [place] [address] AFP TP OSBR Risk 1 [place] [address] [facility] Comment on above: Performed By: #### 1 [id number] #### LAURO Send Outs Subsection [address] [place] [address] AFP TP Race [facility] Comment on above: Performed By: #### 1 [id number] #### LAURO Send Outs Subsection [address] [place] [address] AFP TP T18 (By Age) Not increased [facility] Comment on above: Performed By: #### 1 [id number] #### LAURO Send Outs Subsection [address] [place] [address] AFP TP T18 Risk 1:3695 [facility] Comment on above: Performed By: #### 1 [id number] #### LAURO Send Outs Subsection [address] [place] [address] AFP TP Test Results: Negative [facility] Comment on above: Performed By: #### 1 [id number] #### LAURO Send Outs Subsection [address] [place] [address] AFP TP uE3 Mom 1.52 [facility] Comment on above: Performed By: #### 1 [id number] #### LAURO Send Outs Subsection [address] [place] [address] AFP TP uE3 Value 1.69 ng/mL [facility] Comment on above: Performed By: #### 1 [id number] #### LAURO Send Outs Subsection [address] [place] [address] [place] [address] m[IU]/mL [facility] Comment on above: Performed By: #### 1 [id number] #### LAURO Send Outs Subsection [facility] [place] [address] TYPE + SCREENon 09-26-2017 ABO TYPE Canceled Normal [facility] Comment on above: Order Comment: TEST TYPE + SCREEN WAS CANCELLED, 09/26/2017 15:46 DUPLICATE ORDER. Performed By: #### T +S ####[id number] [place] [address] RH TYPE Canceled Normal [facility] Comment on above: Order Comment: TEST TYPE + SCREEN WAS CANCELLED, 09/26/2017 15:46 DUPLICATE ORDER. Performed By: #### T +S ####[id number] [place] [address] GC + CHLAMYDIA BY AMPLIFIED DETECTIONon 09-23-2017 CHLAMYDIA TRACH.,AMPLIFIED Negative Normal NEGATIVE [facility] Comment on above: Result Comment: Perf ormance characteristics for Chlamydia trachomatis testing on female urine samples has been validated by [facility]. Testing on this sample type is not FDA-approved, but such approval is not necessary. This laboratory is certified by CLIA to perform high complexity testing. Performed By: #### G [facility] ####[id number] [place] [address] N.GONORRHEA,AMPLIFIED Negative Normal NEGATIVE [facility] Comment on above: Result Comment: Perf ormance characteristics for Neisseria gonorrhoeae testing on female urine samples has been validated by [facility]. Testing on this sample type is not FDA-approved, but such approval is not necessary. This laboratory is certified by CLIA to perform high complexity testing. Performed By: #### G [facility] ####[id number] [place] [address] TOTAL PROTEIN, URINE SPOTon 09-23-2017 CREATININE,URINE Canceled Normal [facility] Comment on above: Order Comment: TEST TOTAL PROTEIN, URINE SPOT WAS CANCELLED, 09/21/2017 11:55 ?CancelReason: Patient Discharged. Performed By: #### T PS2 ####[id number] [place] [address] Protein mass conc (U) Canceled Normal [facility] Comment on above: Order Comment: TEST TOTAL PROTEIN, URINE SPOT WAS CANCELLED, 09/21/2017 11:55 ?CancelReason: Patient Discharged. Performed By: #### T PS2 ####[id number] [place] [address] T. PROTEIN/CREAT RATIO Canceled Normal [facility] Comment on above: Order Comment: TEST TOTAL PROTEIN, URINE SPOT WAS CANCELLED, 09/21/2017 11:55 ?CancelReason: Patient Discharged. Performed By: #### T PS2 ####[id number] [place] [address] Clinical Event Note-Neurolog y Sign Offon 09-22-2017 Clinical Event Note-Neurology Sign Off Event: Topic: Neurology Sign Off Details: MRV reviewed and is not consistent with venous thrombosis. No need for anticoagulation at this time. Neurology will sign off at this time. Page with any questions [id number]. Discussed with attending. Josse Sanchez DO, MHSA PGY-3 Provider / Team Contact Information: Provider/Team Contact Info-Pager Number: [phone] Electronic Signatures: Josse Sanchez ( (Resident)) (Signed 22-Sep-2017 11:17) Authored: Event, Provider / Team Contact Information Last Updated: 22-Sep-2017 11:17 by Josse Sanchez ( (Resident)) Normal [facility] Daily Progress Note - OB-Ant epartum - [...] ----- Mn/Dy/Year TimeIntakeOutputNet Sep 22, 2017 6:00 [id number] Sep 21, 2017 10:00 [id number] Sep 21, 2017 2:00 [id number] The Intake and Output Totals for the last 24 hours are: IntakeOutputNet [id number] PRBPSpO2 Value37.8095818/6298% Date/Time09/22 3: 3: 3: 3: 3:45 Range(36.8C [...] than eight hours after previous dose. Contact [phone] for additional info Hep.B Surface Ag NONREACTIVE Reference Range: NONREACTIVE Patients receiving more than 5 mg/day of biotin may have interference in test results. A sample should be taken no sooner than eight hours after previous dose. Contact [phone] for additional infor HIV Antigen/Antibody Screen 21-Sep-2017 [...] Beta 2 Glycoprotein Ab 21-Sep-2017 03:21:00 ResultValue Xrgp-1-Wrzhhyhmprcw IgG Antibody <1.4 Twdz-7-Jwmxsjhqelnl IgA Antibody 0.7 Empp-9-Jatnutyvsgbn IgM Antibody <0.2 Dilute Kervin Viper Venom [...] Quantitative 21-Sep-2017 03:21:00 ResultValue HCG, Beta Quantitative 99948 A Assessment and Plan: Assessment: 27 yo at 12.1 (09/22) wga by reported 8.5 wk US presenting for transfer of care from [place] with new dx of L transverse sinus [...] - anticipate discharge today Margie Ledezma, PGY3 [facility] [address] Signature/Cosignature/Att estation: Comments/ Additional Findings I saw and evaluated [...] documented in her/his note. Espinoza Butcher MD [facility] Attending Electronic Signatures: Margie Ledezma ( (Resident)) (Signed 22-Sep-2017 08:30) Authored: Current Stage, Subjective Data, Objective Data, Assessment and Plan, Signature/Cosignature/Att estation Seymour Butcher) (Signed 22-Sep-2017 22:23) Authored: Signature/Cosignature/Att estation Co-Signer: Current Stage, Subjective Data, Objective Data, Assessment and Plan, Signature/Cosignature/Att estation Last Updated: 22-Sep-2017 22:23 by Seymour Butcher) Normal [facility] GC + CHLAMYDIA BY AMPLIFIED DETECTIONon 09-22-2017 Lab Specimen Source Urine Normal [facility] Comment on above: Performed By: #### G C[facility] ####[id number] [place] [address] HEMOGLOBIN IDENTIFICATIONon 09-22-2017 INTERPRETATION SEE COMMENT Normal [facility] Comment on above: Result Comment: Norm al Performed By: #### H TAYA ####[id number] [place] [address] HEMOGLOBIN A2 2.9 % Normal [facility] Comment on above: Result Comment: HGB A2 values may be falsely elevated in the presence of HGB S. Performed By: #### H TAYA ####[id number] [place] [address] HEMOGLOBIN F 0.4 % Normal [facility] Comment on above: Performed By: #### H TAYA ####[id number] [id number] Hemoglobin mass conc (Bld) 96.7 % Normal [facility] Comment on above: Performed By: #### H TAYA ####[id number] [id number] PATH REVIEW-HGB IDENTIFICATI ONon 09-22-2017 Hemoglobin mass conc (Bld) KPIERRE Normal [facility] Comment on above: Result Comment: By h er/his signature above, the Pathologist listed as making the final interpretation certifies that she/he has personally reviewed this case. Performed By: #### P R27 ####[id number] [place] [address] WITH HBSAGon 2017 RUBELLA IGG AB 143.0 IU/ML Normal [facility] Comment on above: Result Comment: REF VALUES NON-IMMUNE: < 5 EQUIVOCAL: 5-9 IMMUNE: >=10 Performed By: #### P RNH3 ####[id number] [place] [address] TYPE + SCREENon 09-22-2017 ABO TYPE Canceled Normal [facility] Comment on above: Order Comment: TEST TYPE + SCREEN WAS CANCELLED, 09/22/2017 15:56 DUPLICATE ORDER see [id number]. Result Comment: This is a corrected result. Previous value was A, verified at 09/21/2017 11:02 Performed By: #### T +S #### [facility] [id number] [place] [id number] RH TYPE Canceled Normal [facility] Comment on above: Order Comment: TEST TYPE + SCREEN WAS CANCELLED, 09/22/2017 15:56 DUPLICATE ORDER see [id number]. Result Comment: This is a corrected result. Previous value was POS, verified at 09/21/2017 11:02 Performed By: #### T +S #### [facility] [id number] [place] [id number] ANTICARDIOLIPIN ABon 018 NICK IGM 0.2 MPL U/mL Normal 0.0 - 20.0 [facility] Comment on above: Result Comment: Elev ated levels of IgM anti-cardiolipin on 2 occasions at least 12 weeks apart are laboratory criteria for anti-phospholipid syndrome according to an international consensus (J Thromb Haemost 2006 4:295). IgM anti-cardiolipin tends to give false positive results in the low positive range, especially in the presence of rheumatoid factor or cryoglobulins. Performed By: #### A CA2 ####[id number] [place] [address] NICK IGA 0.6 APL U/mL Normal 0.0 - 20.0 [facility] Comment on above: Result Comment: Elev ated levels of IgA anti-cardiolipin have not been included in the laboratory criteria for anti-phospholipid syndrome according to an international consensus (J Thromb Haemost 2006 4:295). It may be helpful in identifying subgroups of patients at risk for specific clinical manifestations of anti-phospholipid syndrome. Performed By: #### A CA2 ####[id number] [place] [address] NICK IGG <1.6 Normal 0.0 - 20.0 [facility] Comment on above: Result Comment: Elev ated levels of IgG anti-cardiolipin on 2 occasions at least 12 weeks apart are laboratory criteria for anti-phospholipid syndrome according to an international consensus (J Thromb Haemost 2006 4:295). Performed By: #### A CA2 ####[id number] [place] [address] Admission Risk Screen - OBon 09-21-2017 Admission [...] ? Cultural Considerationsnone ? Developmental Considerationsnone ? Adventism Considerationsnone Learning Assessment (Other Learner): ? Other [...] Screen: ? Are there any cultural, spiritual, restoration practices/values/needs that are important for us to [...] with underlying chronic conditions or reside in intermediate care facilitiesnone of these conditions ? Persons [...] Last Updated: 21-Sep-2017 03:41 by Dania Forte (CORTNEY) Normal [facility] BETA 2 GLYCOPROTEIN ABon B2 GLYCOPROTEIN AB IGM <0.2 Normal 0.0 - 20.0 [facility] Comment on above: Result Comment: Elev ated [...] cryoglobulins. Performed By: #### B 2GLY #### [facility] [id number] [place] [address] B2 GLYCOPROTEIN AB IGA 0.7 U/mL Normal 0.0 - 20.0 [facility] Comment on above: Result Comment: Elev ated [...] syndrome. Performed By: #### B 2GLY #### [facility] [address] [place] [id number] B2 GLYCOPROTEIN AB IGG <1.4 Normal 0.0 - 20.0 [facility] Comment on above: Result Comment: Elev ated levels of IgG anti-Beta 2 Glycoprotein-I on 2 occasions at least 12 weeks apart are laboratory criteria for anti-phospholipid syndrome according to an international consensus (J Thromb Haemost 2006 4:295). Performed By: #### B 2GLY #### [facility] [address] [place] [id number] CBCon 09-21-2017 Erythrocyte distribution width Ratio (RBC) 13.1 % Normal 11.5 - 14.5 [facility] Comment on above: Performed By: #### C BC #### [facility] [address] [place] [address] Hematocrit Volume Fraction (Bld) 33.5 % Low 36.0 - 46.0 [facility] Comment on above: Performed By: #### C BC #### [facility] [address] [place] [address] Hemoglobin mass conc (Bld) 11.3 g/dL Low 12.0 - 16.0 [facility] Comment on above: Performed By: #### C BC #### [facility] [address] [place] [address] MCHC mass conc (RBC) 33.7 g/dL Normal 32.0 - 36.0 [facility] Comment on above: Performed By: #### C BC #### [facility] [address] [place] [address] MCV Entitic volume (RBC) 87 fL Normal 80 - 100 [facility] Comment on above: Performed By: #### C BC #### [facility] [address] [place] [address] Nucleated RBC/100 WBC Ratio (Bld) 0.0 /100 WBC Normal 0.0-0.0 [facility] Comment on above: Performed By: #### C BC #### [facility] [address] [place] [address] Platelets #/vol (Bld) 196 10*3/uL Normal 150 - 450 [facility] Comment on above: Performed By: #### C BC #### [facility] [address] [place] [address] RBC #/vol (Bld) 3.85 x10E12/L Low 4.00 - 5.20 [facility] Comment on above: Performed By: #### C BC #### [facility] [address] [place] [address] WBC #/vol (Bld) 11.6 10*3/uL High 4.4 - 11.3 [facility] Comment on above: Performed By: #### C BC #### [facility] [address] [place] [address] COAGULATION SCREENon 018 aPTT Coag time (Bld) 26 s Normal 25 - 36 [facility] Comment on above: Result Comment: THE APTT IS NO LONGER USED FOR MONITORING UNFRACTIONATED HEPARIN THERAPY. FOR MONITORING HEPARIN THERAPY, USE THE HEPARIN ASSAY. Performed By: #### C OAGS #### [facility] [address] [place] [address] INR Coag RelTime (PPP) 1.0 {INR} Normal 0.9 - 1.1 [facility] Comment on above: Performed By: #### C OAGS #### [facility] [address] [place] [address] Prothrombin time (PT) Coag time (PPP) 11.3 s Normal 9.8 - 12.7 [facility] Comment on above: Performed By: #### C OAGS #### [facility] [address] [place] [address] COMPREHENSIVE PANELon 2017 Albumin mass conc 3.3 g/dL Low 3.4 - 5.0 [facility] Comment on above: Performed By: #### C MP #### [facility] [address] [place] [address] ALP enzyme act/vol 31 U/L Low 33 - 110 [facility] Comment on above: Performed By: #### C MP #### [facility] [address] [place] [address] ALT enzyme act/vol 16 U/L Normal 7 - 45 [facility] Comment on above: Result Comment: Sandra ents treated with Sulfasalazine may generate falsely decreased results for ALT. Performed By: #### C MP #### [facility] [address] [place] [address] Anion gap molar conc 12 mmol/L Normal 10 - 20 [facility] Comment on above: Performed By: #### C MP #### [facility] [address] [place] [address] AST enzyme act/vol 20 U/L Normal 9 - 39 [facility] Comment on above: Performed By: #### C MP #### [facility] [address] [place] [address] Bilirubin mass conc 0.4 mg/dL Normal 0.0 - 1.2 [facility] Comment on above: Performed By: #### C MP #### [facility] [address] [place] [address] Calcium mass conc 8.2 mg/dL Low 8.6 - 10.6 [facility] Comment on above: Performed By: #### C MP #### [facility] [address] [place] [address] Chloride molar conc 110 mmol/L High 98 - 107 [facility] Comment on above: Performed By: #### C MP #### [facility] [address] [place] [address] Creatinine mass conc 0.43 mg/dL Low 0.50 - 1.05 [facility] Comment on above: Performed By: #### C MP #### [facility] [address] [place] [address] GFR- AM. >60 Normal >60 [facility] Comment on above: Result Comment: CALC ULATIONS OF ESTIMATED GFR ARE PERFORMED USING THE MDRD STUDY EQUATION FOR THE IDMS-TRACEABLE CREATININE METHODS. CLIN CHEM 2007;53:766-72 Performed By: #### C MP #### [facility] [address] [place] [address] GFR-NON AM. >60 Normal >60 [facility] Comment on above: Performed By: #### C MP #### [facility] [address] [place] [address] Glucose mass conc 79 mg/dL Normal 74 - 99 [facility] Comment on above: Performed By: #### C MP #### [facility] [address] [place] [address] HCO3 molar conc (Bld) 19 mmol/L Low 21 - 32 [facility] Comment on above: Performed By: #### C MP #### [facility] [address] [place] [address] Potassium molar conc 3.8 mmol/L Normal 3.5 - 5.3 [facility] Comment on above: Performed By: #### C MP #### [facility] [address] [place] [address] Protein mass conc 5.3 g/dL Low 6.4 - 8.2 [facility] Comment on above: Performed By: #### C MP #### [facility] [address] [place] [address] Sodium molar conc 137 mmol/L Normal 136 - 145 [facility] Comment on above: Performed By: #### C MP #### [facility] [address] [place] [address] Urea nitrogen mass conc 6 mg/dL Normal 6 - 23 [facility] Comment on above: Performed By: #### C MP #### [facility] [address] [place] [address] Clinical Event Note-Updated Neuro Recson 09-21-2017 Clinical [...] Last Updated: 21-Sep-2017 13:51 by Tammy Martin ( (Resident)) Normal [facility] Consult - Neuro-Strokeon Consult - Neuro-Stroke Service: Service: Service: Stroke Consult: Consult requested by (Attending Name): Flaco Reason: CVT History of Present Illness: HPI: This is a 27 yo woman currently 10 week , migraines presenting as transfer from [place] with diagnosis of L transverse dural venous [...] was able to walk. She presented to [facility] when the headache didn't resolve after a few hours like it usually does. CTV showed a nonocclusive L transverse sinus thrombus. She was transferred to OBGYN service at [facility]. She has migraines a few times each [...] Known Allergies: Objective: Objective Information: T PRBPSpO2 [id number]/4194% Date/Time09/21 2: 3: 2: 4: 2:10 Range(37C - 37C [...] exam was normal. In both upper extremities, qbkwon-hdgd-gzguom was intact without dysmetria or overshoot. In both lower extremities, pqql-mg-ktnn was intact. KAYLEE were intact in both upper and lower extremities. GAIT:Deferred due to , weakness Medications: Medications: Continuous Medications ------- No continuous medications are active Scheduled Medications ------- 1. Enoxaparin SubCutaneous: 60 mg SubCutaneous Every 12 Hours 2. with Folic Acid: 1 tablet(s) Oral Daily PRN Medications ------- 1. Lidocaine 1% Injectable: 0.5 mL SubCutaneous [...] Quantitative 21-Sep-2017 03:21:00 ResultValue HCG, Beta Quantitative 42763 A Radiology Results: Results: CT venous (contrast) reviewed from disk in paper chart. Non-occlusive <1cm flow void in L transverse sinus. Assessment/Recommendation s: Aly Guy is a 27 yo 10 week woman presenting for headache, transferred to [facility] for L transverse sinus thrombus. Patient's black [...] all documentation. Jonny Leslie PGY4 Neurology Resident Signature/Cosignature/Att estation: Attending AttestationI saw and evaluated the patient. [...] she has a mild headache still. At [place] ED, CTV was interpreted as showing a nonocclusive L transverse sinus thrombus. She was transferred to OBGYN service at [facility] and started on full anticoagulation with Lovenox. Clinically she is stable. Reviewed images here with neuroradiology (Vijaya Johnson). He felt that most likely what was interpreted as thrombus is more arachnoid granulations (a normal variant). In order to confirm this, we will obtain MRV. Continue with anticoagulation for now. Electronic Signatures: Ishan Ricardo (Resident)) (Signed 21-Sep-2017 05:42) Authored: History of Present Illness, Objective, Assessment/Recommendation s, Signature/Cosignature/Att estation Jonny Carlson) (Signed 21-Sep-2017 16:06) Authored: Signature/Cosignature/Att estation Co-Signer: History of Present Illness, Objective, Assessment/Recommendation s, Signature/Cosignature/Att estation Jonny Leslie (Resident)) (Signed 21-Sep-2017 05:01) Authored: Service, History of Present Illness, Allergies, Objective, Assessment/Recommendation s Last Updated: 21-Sep-2017 16:06 by Jonny Carlson) Normal [facility] Consult-Maternal - Med icine ( Medical Student Note , Aon 09-21-2017 Consult-Maternal - Medicine ( Medical Student Note , A Service: Service: Maternal - Medicine Medical Student: Medical Student Note Stephen Ghosh History of Present Illness: Admission Reason: L dural venous sinus thrombosis HPI: 27 yo at 12 wga by reported 8.5 wk US presenting as transfer from [place] with 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 Presented initially with L frontal KINNEY, dizziness, weakness/heaviness, and blurry vision. Transferred to and admitted to [facility] service. This am, pt feeling poorly. Complaining [...] warmth, edema, or tenderness in LE Neurological: dry mixer grossly intact, moving all 4 extremities Psychological: Mood stable, conversing appropriately Skin: No rashes or lesions Medications: Medications: Continuous Medications ------- No continuous medications are active Scheduled Medications ------- 1. Enoxaparin SubCutaneous: 60 mg SubCutaneous Every 12 Hours 2. with Folic Acid: 1 tablet(s) Oral Daily PRN Medications ------- 1. Lidocaine 1% Injectable: 0.5 mL SubCutaneous [...] Beta 2 Glycoprotein Ab 21-Sep-2017 03:21:00 ResultValue Bvsa-9-Bjddaesebujp IgG Antibody <1.4 Tdui-6-Gbqmkaebbvpy IgA Antibody 0.7 Iumh-6-Slaoiudyweeq IgM Antibody <0.2 Dilute Kervin Viper Venom [...] Quantitative 21-Sep-2017 03:21:00 ResultValue HCG, Beta Quantitative 41838 A Assessment: 27 yo at 12 wga by reported 8.5 wk US presenting for transfer of care from [place] with new dx of L transverse sinus [...] - Request US records Stephen Ghosh MS4 Signature/Cosignature/Att estation: Mold Preparer Only - Attest to Medical Student/Acting Aircraft Engine Specialist documentationAs a teaching institution, we recognize [...] Signatures: Lan Andujar) (Signed 21-Sep-2017 13:39) Authored: Signature/Cosignature/Att estation Co-Signer: Service, History of Present Illness, Allergies, Objective, Assessment/Recommendation s, Signature/Cosignature/Att estation Stephen Ghosh (MED STUD) (Signed 21-Sep-2017 11:54) Authored: Service, History of Present Illness, Allergies, Objective, Assessment/Recommendation s, Signature/Cosignature/Att estation Last Updated: 21-Sep-2017 13:39 by Lan Andujar) Normal [facility] DILUTE KERVIN VIPER VENOM T DAPHNE[DRVVT]on 09-21-2017 DRVVT CONFIRMATION 1.02 RATIO Normal [facility] Comment on above: Performed By: #### D RVVT #### [facility] [address] [place] [address] DRVVT SCREEN 0.93 RATIO Normal [facility] Comment on above: Performed By: #### D RVVT #### [facility] [address] [place] [id number] DRVVT TEST RATIO 0.91 RATIO Normal <=1.20 [facility] Comment on above: Performed By: #### D RVVT #### [facility] [address] [place] [id number] Discharge Planning Noteon Discharge Planning Note Discharge Needs Assessment: ? Discharge Planning Assessment [id number] Discharge Planning: Discharge Planning: Date and Time: 09/21/2017 0208 Nursing Note/Admission/Health Maintenance: D: Patient admitted to the [facility] unit from [place] Patient admitted for or s/p neuro consult [...] to assess home going/discharge needs. Coordinate with Ldr Rn as needed. Signature: Nneka BARR Date and [...] Disposition/Discharge: Disposition/Discharge Information: Discharge/Transfer Information: ? Discharge/Transfer Date/[id number]-0014 21:07 ? Discharged Accompanied Bysignificant other/partner ? Discharge Modeambulatory ? Transportation Methodprivate car ? Final DispositionHome Electronic Signatures: Stefany Whiting) (Signed 22-Sep-2017 21:07) Authored: Final Disposition/Discharge Harriett Renteria (RUSLAN) (Signed 22-Sep-2017 19:26) Authored: Discharge Planning Note, Final Disposition/Discharge Dania Forte) (Signed 21-Sep-2017 02:25) Authored: Discharge Planning Note Last Updated: 22-Sep-2017 21:07 by Stefany Whiting) Normal [facility] Discharge Jsugiyg6on 09-21-2 018 Protein mass conc Discharge Orders: Anticipated Discharge Date: ? Anticipated Discharge [id number] Triage OB: Activity: Return to normal activity [...] ? Physician/Dept/ServiceOB Provider ? CommentsFollow up with architectural intern as scheduled. Provider FINAL REVIEW of Orders: Final Review: ? Final Review of Medication Reconciliation and Orders Completedby Physician ? Reviewing ProviderCamryn Figueroa MD (Resident) at 22-Sep-2017 09:59:32 Appointments: Follow-Up Appointment 01: ? Physician/Dept/Christel FRIEDMAN-UATSDIN OB ? Reason for ReferralPRENATAL VISIT ON [...] (Signed 22-Sep-2017 10:57) Authored: Appointments Dania Forte (RN) (Signed 21-Sep-2017 02:26) Authored: Other Clinician Instructions, Gold Form - Metal Riveter Summary Last Updated: 22-Sep-2017 10:57 by Oscar Carreno (CLIN COOR) Normal [facility] FACTOR V LEIDENon 09-21-2017 FACTOR V LEIDEN SEE BELOW Normal [facility] Comment on above: Result Comment: RESU LTS WILL BE SENT ON SEPARATE REPORT. Performed By: #### L EID2 ####[address] [id number] HCG,BETA-QUANTITATIVEon 08-28 HCG,BETA-QUANTITATIVE 72670 IU/L Abnormal [facility] Comment on above: Result Comment: Low- level [...] using a different test methodology at [facility] than other [facility]. Direct result comparison should only be made within the same method. REF VALUES NON FEMALE <5 MALES <5 Performed By: #### H CGQU #### [facility] [address] [place] [address] History and Physical - OBon 09-21-2017 History [...] ? Choose Antepartum or Postpartumantepartum ? Final [id number] ? Current EGA:12 HPI Descriptive Info: ? HPI 27 yo at 12.0 wga by reported 8.5 wk U/S presents as a transfer from [place] with a new diagnosis of left dural [...] last flare 6 mos. 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 Lam Marie, PGY-2 Signatures/Attestation/Ce rtification: Attending AttestationI saw and evaluated the patient. [...] on 21-Sep-2017 Comments/ Additional Findings Transferred from [place] for dural venous sinus thrombosis and headache. [...] Signatures: Param Sam) (Signed 21-Sep-2017 07:11) Authored: Signatures/Attestation/Ce rtification Co-Signer: Social History, Allergies, Review of Systems, Objective, Assessment and Plan, Signatures/Attestation/Ce rtification, Antepartum, Family History, HPI/OB History/Dating Mariella Marie (Resident)) (Signed 21-Sep-2017 04:03) Authored: Social History, Allergies, Review of Systems, Objective, Assessment and Plan, Signatures/Attestation/Ce rtification, Antepartum, Family History, HPI/OB History/Dating Last Updated: 28-Sep-2017 10:02 by Noris Arora ([facility]) Normal [facility] NR MR VENOGRAPHY INTRACRANIA L W/O CONTRASTon 09-21-2017 NR MR VENOGRAPHY INTRACRANIAL W/O CONTRAST Patient Name: ALY GUY STUDY: NR MRI BRAIN WO; NR MR VENOGRAPHY INTRACRANIAL W/O CONTRAST; 09/21/2017 5:59 pm; 09/21/2017 6:00 pm INDICATION: Signs/Symptoms: R/o venous sinus thrombosis. Stroke protocol. COMPARISON: None ACCESSION NUMBER(S): [id number]; [id number] ORDERING CLINICIAN: NITZA TAPIA TECHNIQUE: MRI of [...] as stated. This study was interpreted at [place], [place]. Electronically signed by: CATY KARIMI MD Normal [facility] NR MRI BRAIN WOon 09-21-2017 NR MRI BRAIN WO Patient Name: ALY GUY STUDY: NR MRI BRAIN WO; NR MR VENOGRAPHY INTRACRANIAL W/O CONTRAST; 09/21/2017 5:59 pm; 09/21/2017 6:00 pm INDICATION: Signs/Symptoms: R/o venous sinus thrombosis. Stroke protocol. COMPARISON: None ACCESSION NUMBER(S): [id number]; [id number] ORDERING CLINICIAN: NITZA TAPIA TECHNIQUE: MRI of [...] as stated. This study was interpreted at [place], [place]. Electronically signed by: CATY KARIMI MD Normal [facility] WITH HBSAGon 2017 HEP.B SURFACE AG NONREACTIVE Normal NONREACTIVE [facility] Comment on above: Result Comment: Sandra ents receiving more than 5 mg/day of biotin may have interference in test results. A sample should be taken no sooner than eight hours after previous dose. Contact [phone] for additional information. Performed By: #### P RNH3 ####[id number] [id number] SYPHILIS IGG NON REACTIVE Normal NONREACTIVE [facility] Comment on above: Result Comment: Sandra ents receiving more than 5 mg/day of biotin may have interference in test results. A sample should be taken no sooner than eight hours after previous dose. Contact [phone] for additional information. Performed By: #### P RNH3 ####[id number] [id number] Erythrocyte distribution width Ratio (RBC) 13.1 % Normal 11.5 - 14.5 [facility] Comment on above: Performed By: #### P RNH3 ####[id number] [id number] Hematocrit Volume Fraction (Bld) 34.6 % Low 36.0 - 46.0 [facility] Comment on above: Performed By: #### P RNH3 ####[id number] [id number] Hemoglobin mass conc (Bld) 11.4 g/dL Low 12.0 - 16.0 [facility] Comment on above: Performed By: #### P RNH3 ####[id number] [id number] MCHC mass conc (RBC) 32.9 g/dL Normal 32.0 - 36.0 [facility] Comment on above: Performed By: #### P RNH3 ####[id number] [place] [address] MCV Entitic volume (RBC) 88 fL Normal 80 - 100 [facility] Comment on above: Performed By: #### P RNH3 ####[id number] [id number] Nucleated RBC/100 WBC Ratio (Bld) 0.0 /100 WBC Normal 0.0-0.0 [facility] Comment on above: Performed By: #### P RNH3 ####[id number] [place] [address] Platelets #/vol (Bld) 193 10*3/uL Normal 150 - 450 [facility] Comment on above: Performed By: #### P RNH3 ####[id number] [place] [address] RBC #/vol (Bld) 3.94 x10E12/L Low 4.00 - 5.20 [facility] Comment on above: Performed By: #### P RNH3 ####[id number] [place] [address] WBC #/vol (Bld) 9.4 10*3/uL Normal 4.4 - 11.3 [facility] Comment on above: Performed By: #### P RNH3 ####[id number] [place] [address] Lab Specimen Source Normal [facility] Comment on above: Performed By: #### P RNH3 ####[id number] [place] [address] PROTHROMBIN MUTATION- [id number] on 09-21-2017 Protein mass conc SEE BELOW Normal [facility] Comment on above: Result Comment: RESU LTS WILL BE SENT ON SEPARATE REPORT. Performed By: #### G PRO2 ####[address] [id number] Patient Profile - OB v2on Protein mass conc Profile: Initial Info: How to be Addressedrose Spoken Language PreferredEnglish Source of Informationpatient Are you currently using the Personal Electronic Health Record or [employer]act[employer]iano Are you interested in learning more about FilmBreak[employer]act[employer] for the management of your healthnot at this time Reason for admission this visitother diagnosis early Arrived Fromhospital Patient Belongingsremast. [facility] Patient Belongings Remaining with Patientcell phone/electronics; clothing; vision aids Medications Brought to Hospitalno Info: Gravida2 Term Deliveries1 Deliveries0 Abortions0 Living Children1 Patient stated [id number] Calculation of EGA based on patient stated EDD12 Is care information applicable this patient/visit?not yet Current Risksnone Testsultrasound Previous Delivery (20 weeks or greater)yes First Delivery Complications (Oldest Child/Children)preeclamps ia Is plan applicable this patient/visit?not yet Is infant information applicable this patient/visit?not yet Is feeding plan applicable this patient/visit?not yet General Health: Weight in sdi054 pound(s) Weight in kg57.1 kilogram(s) Weight Methodactual (measured) Scale Typestanding Is weight gain information applicable this patient/visit?yes Prepregnancy Weight (lb)110 pound(s) Total Weight Gain (lb)16 pound(s) Height in feet5 feet Height in inches0 inch(es) Height in cm152.4 centimeter(s) Height Methodstated BMI (kg/m2)24.584 square meter Patient or Family Member Reaction to Anesthesiano previous reaction Blood Avoidance/Restrictionsnon e Previous Transfusion Reactionno Rsp Based Care: How [...] Support/Comfortspouse Lives Withspouse Resource/Environmental Concernsnone [facility]ticipated [facility] Anticipated at Transitionnone Information Review: ? Allergies, Home Meds and Significant Events have been Reviewed and Verified with Patient/Familyno ALLERGY, INTOLERANCE, ADVERSE EVENT: Allergies: ? No Known Allergies: Active Electronic Signatures: Dania Forte (CORTNEY) (Signed 21-Sep-2017 03:44) Authored: Profile, Additional Information Last Updated: 21-Sep-2017 03:44 by Dania Forte) Normal [facility] IGP W/hpv Rfx [id number] 07-21 Diagnosis: See Ref Lab Report Normal [facility] Comment on above: Order Comment: LMP: 06/16/17 Performed By: #### 1 [id number] #### [place] [address] Pathology ([facility])on 07-13-2017 Pathology ([facility]) FINAL GYNECOLOGIC CYTOLOGY [id number] ADEQUACYSatisfactory for Evaluation. Endocervical cells/transformation zone componentpresent.GENERAL CATEGORIZATIONEpithelial Cell AbnormalityDESCRIPTIVE DIAGNOSISAtypical squamous cells of undetermined significance.COMMENTHigh Risk HPV was ordered and performed at [facility]. Results arereported below in this report. A negative result is a normal result. Apositive result is an abnormal result.HPV HIGH RISK NEGATIVE: The results of this test indicate the patient'sspecimen is NEGATIVE for the following high-risk HPV types:16/18/31/33/35/39/4 5/51/52/56/58/59/66/68. RELATED LABORATORY RESULTSOrdered by: MEDROOrd Date: 07/13/2017 Ord Time: 21:59Test Collected Result Abnormal Range Units SpecimenName D&T TypeHPV Negative NA MSCRNA, 8HighRiskThe HPV test detects E6/E7 viral messenger RNA (mRNA) high-risk HPV evnrcttsm03,18,31,33,35,3 9,45,51,55,58,59,66, and 68 which are associated with cervicalcancer and its precursor lesions. However, cross-reactions with othergenotypes may occur. Results should be correlated with cytologic andhistologic findings. Sensitivity may be affected by cellularity of specimen.CLINICAL HISTORYLMP: 06/16/2017SPECIMEN(A) SCREENING CERVICAL/ENDOCERVICAL THIN PREP VIALPerformed at [facility], [address], [place] [address]Zexwfyzt by: SOFIYA CARSON, Hadoop Java Developer Signed Out by: KEVAN RAYA MD Reported: 07/20/[address] [facility] Comment on above: Performed By: #### G YN ####[facility] [address] [place] [address] .Auto Diffon 02-09-2017 Basophils Auto #/vol (Bld) 0.00 10 3/mcL Normal 0.00-0.19 [facility] ([place]) Comment on above: Performed By: #### C BC, ADIFF, ANEU, CMP, GFR ####[address] [place], [place] [address] Basophils/100 WBC Auto (Bld) 0.4 % Normal 0.0-2.5 [facility] ([place]) Comment on above: Performed By: #### C BC, ADIFF, ANEU, CMP, GFR ####And[address] [place], [place] [address] Eosinophils 0.10 10 3/mcL Normal 0.00-0.40 [facility] ([place]) Comment on above: Performed By: #### C BC, ADIFF, ANEU, CMP, GFR ####[address] [place], [place] [address] Eosinophils/100 leukocytes 1.2 % Normal 0.0-7.0 [facility] ([place]) Comment on above: Performed By: #### C BC, ADIFF, ANEU, CMP, GFR ####[address] [place], [place] [address] Lymphocytes 4.00 10 3/mcL High 0.77-3.85 [facility] ([place]) Comment on above: Performed By: #### C BC, ADIFF, ANEU, CMP, GFR ####[address] [place], [place] [address] Lymphocytes/100 leukocytes 40.0 % Normal 10.0-50.0 [facility] ([place]) Comment on above: Performed By: #### C BC, ADIFF, ANEU, CMP, GFR ####[address] [place], [place] [address] Monocytes 0.70 10 3/mcL Normal 0.15-1.00 [facility] ([place]) Comment on above: Performed By: #### C BC, ADIFF, ANEU, CMP, GFR ####[address] [place], [place] [address] Monocytes/100 leukocytes 7.0 % Normal 1.7-13.0 [facility] ([place]) Comment on above: Performed By: #### C BC, ADIFF, ANEU, CMP, GFR ####Andreina [address] [place], [place] [address] Neutrophils/100 WBC Auto (Bld) 51.4 % Normal 37.0-80.0 [facility] ([place]) Comment on above: Performed By: #### C BC, ADIFF, ANEU, CMP, GFR ####Andreina [address]enas[address] [place], [place] [address] .GFRon 02-09-2017 eGFR (non-black) 123 ml/min/1.73sqm Normal [facility] ([place]) Comment on above: Result Comment: GFR Population [...] BC, ADIFF, ANEU, CMP, GFR ####Andreina [address] [place], [place] [address] eGFR (non-black) mL/min/{1.73_m2} Normal [facility] ([place]) Comment on above: Result Comment: GFR Population [...] C BC, ADIFF, ANEU, CMP, GFR ####Andreina Ndefyrkb[address] [place], [place] [address] .NEUABSon 02-09-2017 Neutrophils 5.20 10 3/mcL Normal 2.85-6.16 [facility] ([place]) Comment on above: Performed By: #### C BC, ADIFF, ANEU, CMP, GFR ####Andreina [address] [place], [place] [address] CBCon 02-09-2017 Erythrocyte distribution width Auto Ratio (RBC) 13.6 % Normal 11.5-14.5 [facility] ([place]) Comment on above: Performed By: #### C BC, ADIFF, ANEU, CMP, GFR ####Andreina [address] [place], [place] [address] Erythrocytes (RBC) 4.92 10 6/mcL Normal 4.20-5.40 [facility] Comment on above: Performed By: #### C BC, ADIFF, ANEU, CMP, GFR ####Andreina [address] [place], [place] [address] Hematocrit (HCT) 42.7 % Normal 37.0-47.0 [facility] ([place]) Comment on above: Performed By: #### C BC, ADIFF, ANEU, CMP, GFR ####Andreina [address] [place], [place] [address] Hemoglobin mass conc (Bld) 14.3 G/dL Normal 12.0-16.0 [facility] ([place]) Comment on above: Performed By: #### C BC, ADIFF, ANEU, CMP, GFR ####Andreina [address] [place], [place] [address] MCH 29.1 pg Normal 27.0-31.2 [facility] ([place]) Comment on above: Performed By: #### C BC, ADIFF, ANEU, CMP, GFR ####Andreina [address] [place], [place] [address] MCHC mass conc (RBC) 33.5 G/dL Normal 33.0-37.0 [facility] ([place]) Comment on above: Performed By: #### C BC, ADIFF, ANEU, CMP, GFR ####Andreina [address] [place] [id number] MCV 86.9 fL Normal 80.0-94.0 [facility] ([place]) Comment on above: Performed By: #### C BC, ADIFF, ANEU, CMP, GFR ####Andreina [address] [place], [place] [address] Platelet mean volume (PMV) 7.1 fL Low 7.4-10.4 [facility] ([place]) Comment on above: Performed By: #### C BC, ADIFF, ANEU, CMP, GFR ####Andreina [address] [place], [place] [address] Platelets 305 10 3/mcL Normal 130-400 [facility] ([place]) Comment on above: Performed By: #### C BC, ADIFF, ANEU, CMP, GFR ####Andreina [address] [place], [place] [address] WBC (Leukocytes) 10.00 10 3/mcL Normal 4.60-10.80 [facility] ([place]) Comment on above: Performed By: #### C BC, ADIFF, ANEU, CMP, GFR ####Andreina [address] [place], [place] [address] CMPon 02-09-2017 Alanine aminotransferase (ALT) 12 U/L Normal 10-35 [facility] ([place]) Comment on above: Performed By: #### C BC, ADIFF, ANEU, CMP, GFR ####Andreina [address] [place], [place] [address] Albumin 4.3 G/dL Normal 3.5-5.0 [facility] ([place]) Comment on above: Performed By: #### C BC, ADIFF, ANEU, CMP, GFR ####Andreina [address] [place], [place] [address] Albumin/Globulin Ratio 2.0 {ratio} Normal 1.1-2.5 [facility] ([place]) Comment on above: Performed By: #### C BC, ADIFF, ANEU, CMP, GFR ####Andreina [address] [place], [place] [address] Alk Phos 48 IU/L Normal 40-135 [facility] ([place]) Comment on above: Performed By: #### C BC, ADIFF, ANEU, CMP, GFR ####Andreina [address] [place], [place] [address] Aspartate aminotransferase (AST) 19 U/L Normal 10-40 [facility] ([place]) Comment on above: Performed By: #### C BC, ADIFF, ANEU, CMP, GFR ####Andreina [address]xs[address] [place], [place] [address] Bili Total 0.2 mg/dL Normal 0.2-1.0 [facility] ([place]) Comment on above: Performed By: #### C BC, ADIFF, ANEU, CMP, GFR ####Andreina [address] [place], [place] [address] BUN/Creatinine Ratio 11 ratio Normal 7-27 [facility] ([place]) Comment on above: Performed By: #### C BC, ADIFF, ANEU, CMP, GFR ####Andreina [address]uz[address] [place], [place] [address] Calcium 9.2 mg/dL Normal 8.4-10.2 [facility] ([place]) Comment on above: Performed By: #### C BC, ADIFF, ANEU, CMP, GFR ####Andreina Mrwgcmui[address] [place], [place] [address] Chloride 107 mmol/L Normal 98-107 [facility] ([place]) Comment on above: Performed By: #### C BC, ADIFF, ANEU, CMP, GFR ####Andreina [address]pbh[address] [place], [place] [address] CO2 25 mmol/L Normal 22-29 [facility] ([place]) Comment on above: Performed By: #### C BC, ADIFF, ANEU, CMP, GFR ####Andreina Rmzoyhjb[address] [place], [place] [address] Creatinine 0.7 mg/dL Normal 0.6-1.2 [facility] ([place]) Comment on above: Performed By: #### C BC, ADIFF, ANEU, CMP, GFR ####Andreina [address] [place], [place] [address] Electrolyte Balance 8.0 mEq/L Normal [facility] ([place]) Comment on above: Performed By: #### C BC, ADIFF, ANEU, CMP, GFR ####Andreina [address] [place], [place] [address] Globulin 2.2 G/dL Normal [facility] ([place]) Comment on above: Performed By: #### C BC, ADIFF, ANEU, CMP, GFR ####Andreina [address] [place], [place] [address] Glucose mass conc 87 mg/dL Normal 70-105 [facility] ([place]) Comment on above: Performed By: #### C BC, ADIFF, ANEU, CMP, GFR ####Andreina [address]rkxbi[address] [place], [place] [address] Potassium molar conc 4.2 mmol/L Normal 3.5-5.1 [facility] ([place]) Comment on above: Performed By: #### C BC, ADIFF, ANEU, CMP, GFR ####Andreina [address] [place], [place] [address] Protein 6.5 G/dL Normal 6.0-8.3 [facility] ([place]) Comment on above: Performed By: #### C BC, ADIFF, ANEU, CMP, GFR ####Andreina [address]qnu[address] [place], [place] [address] Sodium 140 mmol/L Normal 136-146 [facility] ([place]) Comment on above: Performed By: #### C BC, ADIFF, ANEU, CMP, GFR ####Andreina [address]iz[address] [place], [place] [address] Urea nitrogen 7.6 mg/dL Normal 7.0-18.0 [facility] ([place]) Comment on above: Performed By: #### C BC, ADIFF, ANEU, CMP, GFR ####Andreina [address] [place], [place] [address] CT ABD/PELVIS W/ IV CONTRAST ONLYon 02-09-2017 [...] Date: 02/09/2017 1:06:52 AM Normal [facility] ([place]) [facility] Note on 02-09-2017 [facility] Note Normal [facility] ([place]) PREGSon 02-09-2017 test (s) Negative Normal [facility] ([place]) Comment on above: Performed By: #### P REGS ####Andreina [address] [place], [place] [address] test (s) int HCG not detected. Invalid Interpretation Code [facility] ([place]) Comment on above: Performed By: #### P REGS ####Andreina [address] [place], [place] [address] QC PRGSN Negative Normal Negative [facility]) Comment on above: Performed By: #### P REGS ####Andreina [address] [place], [place] [address] QC PRGSP Positive Normal Positive [facility]) Comment on above: Performed By: #### P REGS ####Andreina [address] [place], [place] [address] Patient Summary Documentson 02-09-2017 Patient Summary Documents Normal [facility] ([place]) MISCon 01-25-2017 Misc. Send Out See Comments Normal [facility] ([place]) Comment on above: Result Comment: See Separate Report Performed By: #### C BC, ADIFF, ANEU, HFP, MISC ####Andreina [address] [place], [place] [address]#### ESR, CRP ####[place] [address] CRPon 01-20-2017 C reactive protein (CRP) 0.18 mg/dL Normal <=0.80 [facility] ([place]) Comment on above: Performed By: #### C BC, ADIFF, ANEU, HFP, [facility] ####Andreina [address] [place], [place] [address]#### ESR, CRP ####[place] [address] ESRon 01-19-2017 Erythrocytes (RBC) 5 mm/hr Normal 0-20 [facility] ([place]) Comment on above: Performed By: #### U A PREGU UAMICAO ####Andreina [address] [place], [place] [address] .Auto Diffon 01-18-2017 Basophils Auto #/vol (Bld) 0.00 10 3/mcL Normal 0.00-0.19 [facility] ([place]) Comment on above: Performed By: #### U A PREGU, UAMICAO ####Andreinaya [address] [place], [place] [address] Basophils/100 WBC Auto (Bld) 0.4 % Normal 0.0-2.5 [facility] ([place]) Comment on above: Performed By: #### U A PREGU, UAMICAO ####Andreina [address] [place], [place] [address] Eosinophils 0.10 10 3/mcL Normal 0.00-0.40 [facility] ([place]) Comment on above: Performed By: #### U A, PREGU, UAMICAO ####Andreina [address] [place], [place] [address] Eosinophils/100 leukocytes 0.7 % Normal 0.0-7.0 [facility] ([place]) Comment on above: Performed By: #### U Thad PREGU, UAMICAO ####Andreina [address] [place], [place] [address] Lymphocytes 2.80 10 3/mcL Normal 0.77-3.85 [facility] ([place]) Comment on above: Performed By: #### U Thad PREGU, UAMICAO ####Andreina [address] [place], [place] [address] Lymphocytes/100 leukocytes 28.1 % Normal 10.0-50.0 [facility] ([place]) Comment on above: Performed By: #### Jerel Oneil PREGU, UAMICAO ####Andreina [address] [place], [place] [address] Monocytes 0.60 10 3/mcL Normal 0.15-1.00 [facility] ([place]) Comment on above: Performed By: #### BO SalomonU, UAMICAO ####Andreina [address] [place], [place] [address] Monocytes/100 leukocytes 6.5 % Normal 1.7-13.0 [facility] ([place]) Comment on above: Performed By: #### BO SalomonU, UAMICAO ####Andreina [address] [place], [place] [address] Neutrophils/100 WBC Auto (Bld) 64.3 % Normal 37.0-80.0 [facility] ([place]) Comment on above: Performed By: #### U A PREGU, UAMICAO ####Andreina [address] [place], [place] [address] .NEUABSon 01-18-2017 Neutrophils 6.30 10 3/mcL High 2.85-6.16 [facility] ([place]) Comment on above: Performed By: #### U A PREGU, UAMICAO ####Andreina [address] [place], [place] [address] CBCon 01-18-2017 Erythrocyte distribution width Auto Ratio (RBC) 13.6 % Normal 11.5-14.5 [facility] ([place]) Comment on above: Performed By: #### NADYA Salomon UAMICAO ####Andreina [address] [place], [place] [address] Erythrocytes (RBC) 4.73 10 6/mcL Normal 4.20-5.40 [facility] Comment on above: Performed By: #### NADYA Salomon UAMICAO ####Andreina [address] [place], [place] [address] Hematocrit (HCT) 41.5 % Normal 37.0-47.0 [facility] ([place]) Comment on above: Performed By: #### NADYA Salomon UAMICAO ####Andreina [address] [place], [place] [address] Hemoglobin mass conc (Bld) 13.9 G/dL Normal 12.0-16.0 [facility] ([place]) Comment on above: Performed By: #### NADYA Salomon UAMICAO ####Andreina [address] [place], [place] [address] MCH 29.3 pg Normal 27.0-31.2 [facility] ([place]) Comment on above: Performed By: #### NADYA Salomon UAMICAO ####Andreina [address] [place], [place] [address] MCHC mass conc (RBC) 33.4 G/dL Normal 33.0-37.0 [facility] ([place]) Comment on above: Performed By: #### NADYA Salomon UAMICAO ####Andreina [address] [place], [place] [address] MCV 87.8 fL Normal 80.0-94.0 [facility] ([place]) Comment on above: Performed By: #### NADYA Salomon UAMICKATT ####Andreina [address] [place], [place] [address] Platelet mean volume (PMV) 7.3 fL Low 7.4-10.4 [facility] ([place]) Comment on above: Performed By: #### U A, PREGU, UAMICAO ####Andreina [address] [place], [place] [address] Platelets 256 10 3/mcL Normal 130-400 [facility] ([place]) Comment on above: Performed By: #### U A, PREGU, UAMICAO ####Andreina [address] [place], [place] [address] WBC (Leukocytes) 9.90 10 3/mcL Normal 4.60-10.80 [facility] ([place]) Comment on above: Performed By: #### U A PREGU, UAMICAO ####Andreina [address] [place], [place] [address] HFPon 01-18-2017 Alanine aminotransferase (ALT) 8 U/L Low 10-35 [facility] ([place]) Comment on above: Performed By: #### U A PREGU, UAMICAO ####Andreina [address] [place], [place] [address] Albumin 4.0 G/dL Normal 3.5-5.0 [facility] ([place]) Comment on above: Performed By: #### Jerel Oneil PREGU, UAMICAO ####Andreina [address] [place], [place] [address] Albumin/Globulin Ratio 1.8 {ratio} Normal 1.1-2.5 [facility] ([place]) Comment on above: Performed By: #### U A PREGU, UAMICAO ####Andreina [address] [place], [place] [address] Alk Phos 44 IU/L Normal 40-135 [facility] ([place]) Comment on above: Performed By: #### U A PREGU, UAMICAO ####Andreina [address] [place], [place] [address] Aspartate aminotransferase (AST) 14 U/L Normal 10-40 [facility] ([place]) Comment on above: Performed By: #### U A, PREGU, UAMICAO ####Andreina [address] [place], [place] [address] Bili Direct 0.1 mg/dL Normal 0.1-0.5 [facility] ([place]) Comment on above: Performed By: #### U A, PREGU, UAMICAO ####[facility] [place], [place] [address] Bili Indirect 0.2 mg/dL Normal [facility] ([place]) Comment on above: Performed By: #### U A, PREGU, UAMICAO ####Andreina [address] [place], [place] [address] Bili Total 0.3 mg/dL Normal 0.2-1.0 [facility] ([place]) Comment on above: Performed By: #### U A, PREGU, UAMICAO ####[facility] [place], [place] [address] Globulin 2.2 G/dL Normal [facility] ([place]) Comment on above: Performed By: #### U A, PREGU, UAMICAO ####Andreina [address] [place], [place] [address] Protein 6.2 G/dL Normal 6.0-8.3 [facility] ([place]) Comment on above: Performed By: #### U A, PREGU, UAMICAO ####[place] [address] [place], [place] [address] [place] [address] Emergency Room Note on 01-18-2017 [facility] Note Normal [facility] ([place]) Patient Summary Documentson 01-18-2017 Patient Summary Documents Normal [facility] ([place]) .Auto Diffon 12-18-2016 Basophils Auto #/vol (Bld) 0.10 10 3/mcL Normal 0.00-0.19 [facility] ([place]) Comment on above: Performed By: #### U A, PREGU, UAMICAO ####[facility] [place], [place] [address] Basophils/100 WBC Auto (Bld) 0.5 % Normal 0.0-2.5 [facility] ([place]) Comment on above: Performed By: #### U A, PREGU, UAMICAO ####Andreina [address] [place], [place] [address] Eosinophils 0.00 10 3/mcL Normal 0.00-0.40 [facility] ([place]) Comment on above: Performed By: #### NADYA Salomon UAMICAO ####Andreina [address] [place], [place] [address] Eosinophils/100 leukocytes 0.0 % Normal 0.0-7.0 [facility] ([place]) Comment on above: Performed By: #### NADYA Salomon UAMICKATT ####Andreina [address] [place], [place] [address] Lymphocytes 1.60 10 3/mcL Normal 0.77-3.85 [facility] ([place]) Comment on above: Performed By: #### NADYA Salomon UAMICAO ####Andreina [address] [place], [place] [address] Lymphocytes/100 leukocytes 11.0 % Normal 10.0-50.0 [facility] ([place]) Comment on above: Performed By: #### NADYA Salomon UAMICAO ####Andreina [address] [place], [place] [address] Monocytes 0.50 10 3/mcL Normal 0.15-1.00 [facility] ([place]) Comment on above: Performed By: #### NADYA Salomon UAMICAO ####Andreina [address] [place], [place] [address] Monocytes/100 leukocytes 3.1 % Normal 1.7-13.0 [facility] ([place]) Comment on above: Performed By: #### NADYA Salomon UAMICAO ####Andreina [address] [place], [place] [address] Neutrophils/100 WBC Auto (Bld) 85.4 % High 37.0-80.0 [facility] ([place]) Comment on above: Performed By: #### NADYA Salomon UAMICAO ####Andreina [address] [place], [place] [address] .GFRon 12-18-2016 eGFR (non-black) mL/min/{1.73_m2} Normal [facility] ([place]) Comment on above: Result Comment: GFR Population [...] #### U A PREGU UAMICAO ####Andreina [address] [place], [place] [address] eGFR (non-black) 127 ml/min/1.73sqm Normal [facility] ([place]) Comment on above: Result Comment: GFR Population [...] By: #### U A PREGU UAMICAO ####Andreina [address] [place], [place] [address] .NEUABSon 12-18-2016 Neutrophils 12.80 10 3/mcL High 2.85-6.16 [facility] ([place]) Comment on above: Performed By: #### U A PREGU UAMICAO ####Andreina [address] [place], [place] [address] CBCon 12-18-2016 Erythrocyte distribution width Auto Ratio (RBC) 13.5 % Normal 11.5-14.5 [facility] ([place]) Comment on above: Performed By: #### U Thad PREGU UAMICAO ####Andreina [address] [place], [place] [address] Erythrocytes (RBC) 5.31 10 6/mcL Normal 4.20-5.40 [facility] Comment on above: Performed By: #### U A PREGU UAMICAO ####Andreina [address] [place], [place] [address] Hematocrit (HCT) 45.9 % Normal 37.0-47.0 [facility] ([place]) Comment on above: Performed By: #### U Thad PREGU UAMICAO ####Andreina [address] [place], [place] [address] Hemoglobin mass conc (Bld) 15.1 G/dL Normal 12.0-16.0 [facility] ([place]) Comment on above: Performed By: #### BO SalomonU UAMICKATT ####Andreina [address] [place], [place] [address] MCH 28.5 pg Normal 27.0-31.2 [facility] ([place]) Comment on above: Performed By: #### NADYA Salomon UAMICKATT ####Andreina [address] [place], [place] [address] MCHC mass conc (RBC) 33.0 G/dL Normal 33.0-37.0 [facility] ([place]) Comment on above: Performed By: #### U A PREGU UAMICAO ####Andreina [address] [place], [place] [address] MCV 86.4 fL Normal 80.0-94.0 [facility] ([place]) Comment on above: Performed By: #### U Thad PREGU UAMICAO ####Andreina [address] [place], [place] [address] Platelet mean volume (PMV) 7.6 fL Normal 7.4-10.4 [facility] ([place]) Comment on above: Performed By: #### U A PREGU UAMICAO ####Andreina [address] [place], [place] [address] Platelets 303 10 3/mcL Normal 130-400 [facility] ([place]) Comment on above: Performed By: #### NADYA Salomon UAMICKATT ####Andreina [address] [place], [place] [address] WBC (Leukocytes) 15.00 10 3/mcL High 4.60-10.80 [facility] ([place]) Comment on above: Performed By: #### NADYA Salomon UAMICKATT ####Andreina [address] [place], [place] [address] CMPon 12-18-2016 Alanine aminotransferase (ALT) 24 U/L Normal 10-35 [facility] ([place]) Comment on above: Performed By: #### NADYA Salomon UAMICKATT ####Andreina [address] [place], [place] [address] Albumin 4.3 G/dL Normal 3.5-5.0 [facility] ([place]) Comment on above: Performed By: #### NADYA Salomon UAMICKATT ####Andreina [address] [place], [place] [address] Albumin/Globulin Ratio 1.6 {ratio} Normal 1.1-2.5 [facility] ([place]) Comment on above: Performed By: #### NADYA Salomon UAMICKATT ####Andreina [address] [place], [place] [address] Alk Phos 50 IU/L Normal 40-135 [facility] ([place]) Comment on above: Performed By: #### BO SalomonU UAMICAO ####Andreina [address] [place], [place] [address] Aspartate aminotransferase (AST) 33 U/L Normal 10-40 [facility] ([place]) Comment on above: Performed By: #### Jerel Oneil PREGU UAMICAO ####Andreina [address] [place], [place] [address] Bili Total 0.5 mg/dL Normal 0.2-1.0 [facility] ([place]) Comment on above: Performed By: #### U A, PREGU, UAMICAO ####Andreina [address] [place], [place] [address] BUN/Creatinine Ratio 16 ratio Normal 7-27 [facility] ([place]) Comment on above: Performed By: #### U A, PREGU, UAMICAO ####Andreina [address] [place], [place] [address] Calcium 9.6 mg/dL Normal 8.4-10.2 [facility] ([place]) Comment on above: Performed By: #### U A, PREGU, UAMICAO ####Andreina [address] [place], [place] [address] Chloride 103 mmol/L Normal 98-107 [facility] ([place]) Comment on above: Performed By: #### U A, PREGU, UAMICAO ####Andreina [address] [place], [place] [address] CO2 25 mmol/L Normal 22-29 [facility] ([place]) Comment on above: Performed By: #### U A, PREGU, UAMICAO ####Andreina [address] [place], [place] [address] Creatinine 0.7 mg/dL Normal 0.6-1.2 [facility] ([place]) Comment on above: Performed By: #### U A, PREGU, UAMICAO ####Andreina [address] [place], [place] [address] Electrolyte Balance 9.0 mEq/L Normal [facility] ([place]) Comment on above: Performed By: #### U A, PREGU, UAMICAO ####Andreina [address] [place], [place] [address] Globulin 2.7 G/dL Normal [facility] ([place]) Comment on above: Performed By: #### U A, PREGU, UAMICAO ####Andreina [address] [place], [place] [address] Glucose mass conc 102 mg/dL Normal 70-105 [facility] ([place]) Comment on above: Performed By: #### U A, PREGU, UAMICAO ####Andreina [address] [place], [place] [address] Potassium molar conc 5.0 mmol/L Normal 3.5-5.1 [facility] ([place]) Comment on above: Performed By: #### NADYA Salomon UAMICAO ####Andreina [address] [place], [place] [address] Protein 7.0 G/dL Normal 6.0-8.3 [facility]) Comment on above: Performed By: #### U BO OneilU UAMICAO ####Andreina [address] [place], [place] [address] Sodium 137 mmol/L Normal 136-146 [facility] ([place]) Comment on above: Performed By: #### NADYA Salomon UAMICAO ####Andreina [address] [place], [place] [address] Urea nitrogen 11.0 mg/dL Normal 7.0-18.0 [facility]) Comment on above: Performed By: #### NADYA Salomon UAMICAO ####Andreina [address] [place], [place] [address] LIPon 12-18-2016 Lipase Level 18 IU/L Normal 8-78 [facility]) Comment on above: Performed By: #### NADYA Salomon UAMICAO ####Andreina [address] [place], [place] [address] [facility] Note on 12-18-2016 [facility] Note Normal [facility]) Patient Summary Documentson 12-18-2016 Patient Summary Documents Normal [facility]) XR ABDOMEN COMPLETE W/DECUB/ ERECTon 12-18-2016 XR [...] resident's findings and interpretation Interpreted By: Glenn Joseph MDPreliminary Report By: Juan Cook MDElectronically Signed By: Glenn Joseph MD Dictated Date: 12/18/2016 6:42:31 PM Prelim Date: 12/18/2016 6:44:09 PM Sign Date: 12/18/2016 8:25:17 PM Normal [facility] ([place] ABD/PELVIS W/ IV CONTRAST ONLYon 12-17-2016 [...] Date: 12/16/2016 11:14:44 PM Normal [facility] ([place]) .Auto Diffon 12-16-2016 Basophils Auto #/vol (Bld) 0.00 10 3/mcL Normal 0.00-0.19 [facility] ([place]) Comment on above: Performed By: #### C BC, ADIFF, ANEU, LIP, CMP, GFR ####Andreina [address] [place], [place] [address] Basophils/100 WBC Auto (Bld) 0.3 % Normal 0.0-2.5 [facility] ([place]) Comment on above: Performed By: #### C BC, ADIFF, ANEU, LIP, CMP, GFR ####Andreina [address] [place], [place] [address] Eosinophils 0.00 10 3/mcL Normal 0.00-0.40 [facility] ([place]) Comment on above: Performed By: #### C BC, ADIFF, ANEU, LIP, CMP, GFR ####Andrenia [address] [place], [place] [address] Eosinophils/100 leukocytes 0.0 % Normal 0.0-7.0 [facility] ([place]) Comment on above: Performed By: #### C BC, ADIFF, ANEU, LIP, CMP, GFR ####Andreina [address]xsxfak[address] [place], [place] [address] Lymphocytes 1.30 10 3/mcL Normal 0.77-3.85 [facility] ([place]) Comment on above: Performed By: #### C BC, ADIFF, ANEU, LIP, CMP, GFR ####Andreina [address] [place], [place] [address] Lymphocytes/100 leukocytes 9.4 % Low 10.0-50.0 [facility] ([place]) Comment on above: Performed By: #### C BC, ADIFF, ANEU, LIP, CMP, GFR ####Andreina [address] [place], [place] [address] Monocytes 0.30 10 3/mcL Normal 0.15-1.00 [facility] ([place]) Comment on above: Performed By: #### C BC, ADIFF, ANEU, LIP, CMP, GFR ####Andreina [address] [place], [place] [address] Monocytes/100 leukocytes 2.5 % Normal 1.7-13.0 [facility] ([place]) Comment on above: Performed By: #### C BC, ADIFF, ANEU, LIP, CMP, GFR ####Andreina [address] [place], [place] [address] Neutrophils/100 WBC Auto (Bld) 87.8 % High 37.0-80.0 [facility] ([place]) Comment on above: Performed By: #### C BC, ADIFF, ANEU, LIP, CMP, GFR ####Andreinaya [address] [place], [place] [address] .GFRon 12-16-2016 eGFR (non-black) mL/min/{1.73_m2} Normal [facility] ([place]) Comment on above: Result Comment: GFR Population [...] #### U A, PREGU, UAMICAO ####Andreina [address] [place], [place] [address] eGFR (non-black) 103 ml/min/1.73sqm Normal [facility] ([place]) Comment on above: Result Comment: GFR Population [...] mL/min/1.73 square meters Performed By: #### U BO OneilU, UAMICAO ####Andreina [address] [place], [place] [address] .NEUABSon 12-16-2016 Neutrophils 12.30 10 3/mcL High 2.85-6.16 [facility] ([place]) Comment on above: Performed By: #### C BC, ADIFF, ANEU, LIP, CMP, GFR ####Andreina [address] [place], [place] [address] CBCon 12-16-2016 Erythrocyte distribution width Auto Ratio (RBC) 13.7 % Normal 11.5-14.5 [facility] ([place]) Comment on above: Performed By: #### C BC, ADIFF, ANEU, LIP, CMP, GFR ####Andreina [address] [place], [place] [address] Erythrocytes (RBC) 4.83 10 6/mcL Normal 4.20-5.40 [facility] ([place] Comment on above: Performed By: #### C BC, ADIFF, ANEU, LIP, CMP, GFR ####Andreina [address] [place], [place] [address] Hematocrit (HCT) 41.9 % Normal 37.0-47.0 [facility] ([place] Comment on above: Performed By: #### C BC, ADIFF, ANEU, LIP, CMP, GFR ####Andreina [address] [place], [place] [address] Hemoglobin mass conc (Bld) 14.0 G/dL Normal 12.0-16.0 [facility] ([place]) Comment on above: Performed By: #### C BC, ADIFF, ANEU, LIP, CMP, GFR ####Andreina [address] [place], [place] [address] MCH 29.1 pg Normal 27.0-31.2 [facility] ([place]) Comment on above: Performed By: #### C BC, ADIFF, ANEU, LIP, CMP, GFR ####Andreina [address] [place], [place] [address] MCHC mass conc (RBC) 33.5 G/dL Normal 33.0-37.0 [facility] ([place] Comment on above: Performed By: #### C BC, ADIFF, ANEU, LIP, CMP, GFR ####Andreina [address] [place], [place] [address] MCV 86.7 fL Normal 80.0-94.0 [facility] ([place] Comment on above: Performed By: #### C BC, ADIFF, ANEU, LIP, CMP, GFR ####Andreina [address] [place], [place] [address] Platelet mean volume (PMV) 7.1 fL Low 7.4-10.4 [facility] ([place] Comment on above: Performed By: #### C BC, ADIFF, ANEU, LIP, CMP, GFR ####Andreina Fcixqibr[address] [place], [place] [address] Platelets 255 10 3/mcL Normal 130-400 [facility] ([place]) Comment on above: Performed By: #### C BC, ADIFF, ANEU, LIP, CMP, GFR ####Andreina S[address]udr[address] [place], [place] [address] WBC (Leukocytes) 13.90 10 3/mcL High 4.60-10.80 [facility] ([place]) Comment on above: Performed By: #### C BC, ADIFF, ANEU, LIP, CMP, GFR ####Andreina [address] [place], [place] [address] CMPon 12-16-2016 Alanine aminotransferase (ALT) 12 U/L Normal 10-35 [facility] ([place] Comment on above: Performed By: #### C BC, ADIFF, ANEU, LIP, CMP, GFR ####Andreina [address] [place], [place] [address] Albumin 4.1 G/dL Normal 3.5-5.0 [facility] ([place]) Comment on above: Performed By: #### C BC, ADIFF, ANEU, LIP, CMP, GFR ####Andreinaya [address] [place], [place] [address] Albumin/Globulin Ratio 1.7 {ratio} Normal 1.1-2.5 [facility] ([place]) Comment on above: Performed By: #### C BC, ADIFF, ANEU, LIP, CMP, GFR ####Andreina [address] [place], [place] [address] Alk Phos 48 IU/L Normal 40-135 [facility] ([place]) Comment on above: Performed By: #### C BC, ADIFF, ANEU, LIP, CMP, GFR ####Andreina [address] [place], [place] [address] Aspartate aminotransferase (AST) 14 U/L Normal 10-40 [facility] ([place]) Comment on above: Performed By: #### C BC, ADIFF, ANEU, LIP, CMP, GFR ####Andreina [address] [place], [place] [address] Bili Total 0.3 mg/dL Normal 0.2-1.0 [facility] ([place]) Comment on above: Performed By: #### C BC, ADIFF, ANEU, LIP, CMP, GFR ####Andreina [address] [place], [place] [address] BUN/Creatinine Ratio 19 ratio Normal 7-27 [facility] ([place] Comment on above: Performed By: #### C BC, ADIFF, ANEU, LIP, CMP, GFR ####Andreinaya [address] [place], [place] [address] Calcium 9.4 mg/dL Normal 8.4-10.2 [facility] ([place]) Comment on above: Performed By: #### C BC, ADIFF, ANEU, LIP, CMP, GFR ####Lyme [address] [place], [place] [address] Chloride 103 mmol/L Normal 98-107 [facility] ([place] Comment on above: Performed By: #### C BC, ADIFF, ANEU, LIP, CMP, GFR ####Andreina [address]mp[address] [place], [place] [address] CO2 27 mmol/L Normal 22-29 [facility] ([place]) Comment on above: Performed By: #### C BC, ADIFF, ANEU, LIP, CMP, GFR ####Lyme [address]zx[address] [place], [place] [address] Creatinine 0.8 mg/dL Normal 0.6-1.2 [facility] ([place]) Comment on above: Performed By: #### C BC, ADIFF, ANEU, LIP, CMP, GFR ####Andreina [address] [place], [place] [address] Electrolyte Balance 9.0 mEq/L Normal [facility] ([place]) Comment on above: Performed By: #### C BC, ADIFF, ANEU, LIP, CMP, GFR ####Andreina E[address]wr[address] [place], [place] [address] Globulin 2.4 G/dL Normal [facility] ([place]) Comment on above: Performed By: #### C BC, ADIFF, ANEU, LIP, CMP, GFR ####Andreina [address] [place], [place] [address] Glucose mass conc 117 mg/dL High 70-105 [facility] ([place]) Comment on above: Performed By: #### C BC, ADIFF, ANEU, LIP, CMP, GFR ####Lyme [address] [place], [place] [address] Potassium molar conc 4.3 mmol/L Normal 3.5-5.1 [facility] ([place]) Comment on above: Performed By: #### C BC, ADIFF, ANEU, LIP, CMP, GFR ####Andreina [address] [place], [place] [address] Protein 6.5 G/dL Normal 6.0-8.3 [facility] ([place]) Comment on above: Performed By: #### C BC, ADIFF, ANEU, LIP, CMP, GFR ####Andreina [address] [place], [place] [address] Sodium 139 mmol/L Normal 136-146 [facility] ([place]) Comment on above: Performed By: #### C BC, ADIFF, ANEU, LIP, CMP, GFR ####Andreina [address] [place], [place] [address] Urea nitrogen 14.9 mg/dL Normal 7.0-18.0 [facility] ([place]) Comment on above: Performed By: #### C BC, ADIFF, ANEU, LIP, CMP, GFR ####Andreina [address] [place], [place] [address] LIPon 12-16-2016 Lipase Level 23 IU/L Normal 8-78 [facility]) Comment on above: Performed By: #### C BC, ADIFF, ANEU, LIP, CMP, GFR ####Andreina [address] [place], [place] [address] [facility] Note on 12-16-2016 [facility] Note Normal [facility] ([place]) Patient Summary Documentson 12-16-2016 Patient Summary Documents Normal [facility]) [facility] Note on 12-15-2016 [facility] Note Normal [facility]) .Urinalysis Microscopic (AO) on 12-14-2016 UA Squam Epithelial None Seen Normal None Seen [facility] ([place]) Comment on above: Performed By: #### U A, PREGU, UAMICAO ####Andreina [address] [place], [place] [address] UA WBC None Seen Normal None Seen [facility] ([place]) Comment on above: Performed By: #### U A, PREGU, UAMICAO ####Andreina [address] [place], [place] [address] Urine, erythrocytes None Seen Normal None Seen [facility] ([place]) Comment on above: Performed By: #### U A, PREGU, UAMICAO ####Andreina [address] [place] [address] PREGUon 12-14-2016 HCG ( test) Ql (U) Negative [facility] ([place]) Comment on above: Performed By: #### U A, PREGU, UAMICAO ####Andreina [address] [place] [address] test (u) int HCG not detected. Invalid Interpretation Code [facility] ([place]) Comment on above: Performed By: #### U A, PREGU, UAMICAO ####Andreina [address] [place] [address] Patient Summary Documentson 12-14-2016 Patient Summary Documents Normal [facility] ([place]) UAon 12-14-2016 UA Appear CLEAR [facility] ([place]) Comment on above: Performed By: #### U A, PREGU, UAMICAO ####Andreina [address] [place] [address] UA Blood Negative [facility] ([place]) Comment on above: Performed By: #### U A, PREGU, UAMICAO ####Andreina [address] [place] [address] UA Leuk Est Negative [facility] ([place]) Comment on above: Performed By: #### U A, PREGU, UAMICAO ####Andreina [address] [place] [address] UA Nitrite Negative [facility] ([place]) Comment on above: Performed By: #### U A, PREGU, UAMICAO ####Andreina [address] [place] [address] UA pH 7.0 [facility] ([place]) Comment on above: Performed By: #### U A, PREGU, UAMICAO ####Andreina [address] [place] [address] UA Protein Negative [facility] ([place]) Comment on above: Performed By: #### U A, PREGU, UAMICAO ####Andreina [address] [place] [address] UA Spec Grav <=1.005 Abnormal [facility] ([place]) Comment on above: Performed By: #### U A, PREGU, UAMICAO ####Andreina [address] [place], [place] [address] UA Specimen Type Void Normal [facility] ([place] Comment on above: Performed By: #### U A, PREGU, UAMICAO ####Andreina [address] [place], [place] [address] UA Urobilinogen 0.2 E.U./dL Normal [facility] ([place] Comment on above: Performed By: #### U A, PREGU, UAMICAO ####Andreina [address] [place], [place] [address] Urine, color YELLOW Normal [facility] ([place] Comment on above: Performed By: #### U A, PREGU, UAMICAO ####Andreina [address] [place] [address] Urine, glucose Negative Normal [facility] ([place] Comment on above: Performed By: #### U A, PREGU, UAMICAO ####Andreina [address] [place], [place] [address] Urine, ketones presence Negative Normal [facility] ([place] Comment on above: Performed By: #### U A, PREGU, UAMICAO ####Andreina [address] [place], [place] [address] Urine, urobilinogen Negative Normal [facility] ([place] Comment on above: Performed By: #### U A, PREGU, UAMICAO ####Andreina [address] [place], [place] [address] WRISTon 09-16-2016 WRIST Final ReportAccession No: [id number] Performed: Sep 16 2016 6:39PMExamination: RIGHT [id number] female with right wrist pain.PA, lateral, oblique and navicular views right wrist 09/16/2016 at 6:32 PM:FINDINGS: No acute fracture and no dislocation. Osseous mineralization isnormal. Joint spaces are well-maintained. Soft tissues are unremarkable.IMPRESSION: Unremarkable right wrist radiographs.Interpreting Physician: ALONZO VICTORIA M.D.Trans: : cc: Normal [facility] Vital Signs Date Time Vital Sign Value Performing Clinician Facility 08-09-2024 22:39-0400 Body temperature 98 [degF] Dr. Roque Pope MD Work Phone: 8(931)[phone] [place] [address] 08-09-2024 22:39-0400 Diastolic blood pressure 75 mm[Hg] Dr. Roque Pope MD Work Phone: 7(604)[phone] [place] [address] 08-09-2024 22:39-0400 Heart rate 75 /min Dr. Roque Pope MD Work Phone: 2(901)436-898543 [place] [address] 08-09-2024 22:39-0400 Respiratory rate 16 /min Dr. Roque Pope MD Work Phone: 3(026)055-269343 [place] [address] 08-09-2024 22:39-0400 SaO2% (BldA) [Mass fraction] 100 % Dr. Roque Pope MD Work Phone: 9(518)765-976743 [place] [address] 08-09-2024 22:39-0400 Systolic blood pressure 119 mm[Hg] Dr. Roque Pope MD Work Phone: 0(287)945-201543 [place] [address] 08-09-2024 21:15-0400 Body height 149.[address] Roque Pope MD Work Phone: 0(608)259-791343 [place] [address] 08-09-2024 21:15-0400 Body mass index (BMI) [Ratio] 29.2 kg/m2 Dr. Roque Pope MD Work Phone: 8(096)065-363943 [place] [address] 08-09-2024 21:15-0400 Body weight 65.[address] Roque Pope MD Work Phone: 9(382)[phone] [place] [address] 06-18-2024 15:06-0400 Body height 150.5 cm Rakel Love APRN.EMBROIDERY DESIGNER Work Phone: [facility] 06-18-2024 15:06-0400 Body mass index (BMI) [Ratio] 30.24 kg/m2 Rakel Love APRN.CNP Work Phone: [place] [facility] 06-18-2024 15:06-0400 Body weight 68.49 kg Rakel Love APRN.EMBROIDERY DESIGNER Work Phone: [place] [facility] 06-18-2024 15:06-0400 Diastolic blood pressure 71 mm[Hg] Rakel Love APRN.EMBROIDERY DESIGNER Work Phone: [facility] 06-18-2024 15:06-0400 Systolic blood pressure 112 mm[Hg] Rakel Love APRN.EMBROIDERY DESIGNER Work Phone: [facility] 05-23-2024 16:02-0400 Body mass index (BMI) [Ratio] 30.48 kg/m2 Nurse Wstr Work Phone: [facility] 05-23-2024 16:02-0400 Body weight 69.49 kg Nurse Wstr Work Phone: [facility] 05-23-2024 16:02-0400 Diastolic blood pressure 68 mm[Hg] Nurse Wstr Work Phone: [facility] 05-23-2024 16:02-0400 Systolic blood pressure 104 mm[Hg] Nurse Wstr Work Phone: [facility] 05-20-2024 17:40-0400 Body mass index (BMI) [Ratio] 30.64 kg/m2 Roque Pope MD Work Phone: [facility] 05-20-2024 17:40-0400 Body temperature 99 [degF] Roque Pope MD Work Phone: [facility] 05-20-2024 17:40-0400 Body weight 69.85 kg Roque Pope MD Work Phone: [facility] 05-20-2024 17:40-0400 Diastolic blood pressure 70 mm[Hg] Roque Pope MD Work Phone: [facility] 05-20-2024 17:40-0400 Heart rate 92 /min Roque Pope MD Work Phone: [facility] 05-20-2024 17:40-0400 Respiratory rate 16 /min Roque Pope MD Work Phone: [facility] 05-20-2024 17:40-0400 Systolic blood pressure 110 mm[Hg] Roque Pope MD Work Phone: [facility] 02-27-2024 14:01-0500 Body mass index (BMI) [Ratio] 31.23 kg/m2 Nurse Wstr Work Phone: [facility] 02-27-2024 14:01-0500 Body weight 71.22 kg Nurse Wstr Work Phone: [facility] 02-27-2024 14:01-0500 Diastolic blood pressure 68 mm[Hg] Nurse Wstr Work Phone: [facility] 02-27-2024 14:01-0500 Systolic blood pressure 110 mm[Hg] Nurse Wstr Work Phone: [facility] 11-22-2023 17:25-0400 Body mass index (BMI) [Ratio] 29.65 kg/m2 Randy Bojorquez APRN.EMBROIDERY DESIGNER Work Phone: [facility] 11-22-2023 17:25-0400 Body temperature 98.91 [degF] Randy Bojorquez CUT OFF TENDER GLASS.EMBROIDERY DESIGNER Work Phone: [facility] 11-22-2023 17:25-0400 Body weight 67.6 kg Randy Bojorquez APRN.EMBROIDERY DESIGNER Work Phone: [facility] 11-22-2023 17:25-0400 Diastolic blood pressure 64 mm[Hg] Randy Bojorquez APRN.EMBROIDERY DESIGNER Work Phone: [facility] 11-22-2023 17:25-0400 Heart rate 80 /min Randy Bojorquez CUT OFF TENDER GLASS.EMBROIDERY DESIGNER Work Phone: [facility] 11-22-2023 17:25-0400 Respiratory rate 18 /min Randy Bojorquez APRN.EMBROIDERY DESIGNER Work Phone: [facility] 11-22-2023 17:25-0400 SaO2% (BldA) [Mass fraction] 99 % Randy Bojorquez APRN.EMBROIDERY DESIGNER Work Phone: [facility] 11-22-2023 17:25-0400 Systolic blood pressure 128 mm[Hg] Randy Bojorquez APRN.CNP Work Phone: [facility] 10-31-2023 10:56-0400 Body height 151 cm Roque Pope MD Work Phone: [facility] 10-31-2023 10:56-0400 Body mass index (BMI) [Ratio] 30.68 kg/m2 Roque Pope MD Work Phone: [facility] 10-31-2023 10:56-0400 Body weight 69.94 kg Roque Pope MD Work Phone: [facility] 10-31-2023 10:56-0400 Diastolic blood pressure 64 mm[Hg] Roque Pope MD Work Phone: [facility] 10-31-2023 10:56-0400 Heart rate 84 /min Roque Pope MD Work Phone: [facility] 10-31-2023 10:56-0400 SaO2% (BldA) [Mass fraction] 99 % Roque Pope MD Work Phone: [facility] 10-31-2023 10:56-0400 Systolic blood pressure 98 mm[Hg] Roque Pope MD Work Phone: [facility] 10-17-2023 16:15-0400 Body mass index (BMI) [Ratio] 31.1 kg/m2 Nurse Wstr Work Phone: [facility] 10-17-2023 16:15-0400 Body weight 69.85 kg Nurse Wstr Work Phone: [facility] 10-17-2023 16:15-0400 Diastolic blood pressure 70 mm[Hg] Nurse Wstr Work Phone: [facility] 10-17-2023 16:15-0400 Systolic blood pressure 108 mm[Hg] Nurse Wstr Work Phone: [facility] 07-25-2023 09:24-0400 Body mass index (BMI) [Ratio] 32.32 kg/m2 Nurse Wstr Work Phone: [facility] 07-25-2023 09:24-0400 Body weight 72.58 kg Nurse Wstr Work Phone: [facility] 07-25-2023 09:24-0400 Diastolic blood pressure 68 mm[Hg] Nurse Wstr Work Phone: [facility] 07-25-2023 09:24-0400 Systolic blood pressure 110 mm[Hg] Nurse Wstr Work Phone: [facility] 05-19-2023 22:56-0400 Body height 149.86 cm [facility] 05-19-2023 22:56-0400 Body mass index (BMI) [Ratio] 34.8 kg/m2 [facility] 05-19-2023 22:56-0400 Body temperature 97.4 [degF] [facility] 05-19-2023 22:56-0400 Body weight 78.24 kg [facility] 05-19-2023 22:56-0400 Diastolic blood pressure 90 mm[Hg] [facility] 05-19-2023 22:56-0400 Heart rate 70 /min [facility] 05-19-2023 22:56-0400 Respiratory rate 16 /min [facility] 05-19-2023 22:56-0400 SaO2% (BldA) [Mass fraction] 98 % [facility] 05-19-2023 22:56-0400 Systolic blood pressure 138 mm[Hg] [facility] 04-17-2023 08:38-0500 Body temperature 98.1 [degF] Sydni Nhan CUT OFF TENDER GLASS.EMBROIDERY DESIGNER Work Phone: [facility] 04-17-2023 08:38-0500 Body weight 78.93 kg Sydni Nhan CUT OFF TENDER GLASS.EMBROIDERY DESIGNER Work Phone: [facility] 04-17-2023 08:38-0500 Diastolic blood pressure 82 mm[Hg] Sydni Nhan CUT OFF TENDER GLASS.EMBROIDERY DESIGNER Work Phone: [facility] 04-17-2023 08:38-0500 Heart rate 73 /min Sydni Nhan CUT OFF TENDER GLASS.EMBROIDERY DESIGNER Work Phone: [facility] 04-17-2023 08:38-0500 Respiratory rate 18 /min Sydni Nhan CUT OFF TENDER GLASS.EMBROIDERY DESIGNER Work Phone: [facility] 04-17-2023 08:38-0500 SaO2% (BldA) [Mass fraction] 100 % Sydni Nhan CUT OFF TENDER GLASS.EMBROIDERY DESIGNER Work Phone: [facility] 04-17-2023 08:38-0500 Systolic blood pressure 128 mm[Hg] Sydni Nhan CUT OFF TENDER GLASS.EMBROIDERY DESIGNER Work Phone: [facility] 01-23-2023 14:41-0500 Body temperature 97.9 [degF] Treatment Wstr Work Phone: [facility] 01-23-2023 14:41-0500 Diastolic blood pressure 68 mm[Hg] Treatment Wstr Work Phone: [facility] 01-23-2023 14:41-0500 Heart rate 83 /min Treatment Wstr Work Phone: [facility] 01-23-2023 14:41-0500 Respiratory rate 18 /min Treatment Wstr Work Phone: [facility] 01-23-2023 14:41-0500 SaO2% (BldA) [Mass fraction] 100 % Treatment Wstr Work Phone: [facility] 01-23-2023 14:41-0500 Systolic blood pressure 109 mm[Hg] Treatment Wstr Work Phone: [facility] 12-26-2022 13:55-0400 Body temperature 97.59 [degF] Treatment Wstr Work Phone: [facility] 12-26-2022 13:55-0400 Body weight 76.2 kg Treatment Wstr Work Phone: [facility] 12-26-2022 13:55-0400 Diastolic blood pressure 80 mm[Hg] Treatment Wstr Work Phone: [facility] 12-26-2022 13:55-0400 Heart rate 78 /min Treatment Wstr Work Phone: [facility] 12-26-2022 13:55-0400 Respiratory rate 16 /min Treatment Wstr Work Phone: [facility] 12-26-2022 13:55-0400 SaO2% (BldA) [Mass fraction] 100 % Treatment Wstr Work Phone: [facility] 12-26-2022 13:55-0400 Systolic blood pressure 135 mm[Hg] Treatment Wstr Work Phone: [facility] 12-15-2022 16:02-0400 Body height 149.9 cm Rakel Love APRN.EMBROIDERY DESIGNER Work Phone: [facility] 12-15-2022 16:02-0400 Body weight 77.11 kg Rakel Love APRN.EMBROIDERY DESIGNER Work Phone: [facility] 12-15-2022 16:02-0400 Diastolic blood pressure 62 mm[Hg] Rakel Love APRN.EMBROIDERY DESIGNER Work Phone: [facility] 12-15-2022 16:02-0400 Systolic blood pressure 108 mm[Hg] Rakel Love APRN.EMBROIDERY DESIGNER Work Phone: [facility] 11-25-2022 18:18-0400 Body temperature 98.6 [degF] Winnie Athy PA-C Work Phone: [facility] 11-25-2022 18:18-0400 Body weight 75.48 kg Winnie Athy PA-C Work Phone: [facility] 11-25-2022 18:18-0400 Diastolic blood pressure 66 mm[Hg] Winnie Athy PA-C Work Phone: [facility] 11-25-2022 18:18-0400 Heart rate 84 /min Winnie Athy PA-C Work Phone: [facility] 11-25-2022 18:18-0400 Respiratory rate 16 /min Winnie Athy PA-C Work Phone: [facility] 11-25-2022 18:18-0400 SaO2% (BldA) [Mass fraction] 97 % Winnie Athy PA-C Work Phone: [facility] 11-25-2022 18:18-0400 Systolic blood pressure 120 mm[Hg] Winnie Athy PA-C Work Phone: [facility] 11-02-2022 10:22-0400 Body height 149.9 cm Demetrius France MD Work Phone: [facility] 11-02-2022 10:22-0400 Body weight 75.48 kg Demetrius France MD Work Phone: [facility] 10-17-2022 16:42-0400 Body height 149.9 cm Karla Ribakow PA-C Work Phone: [facility] 10-17-2022 16:42-0400 Body weight 74.39 kg Karla Ribakow PA-C Work Phone: [facility] 10-17-2022 16:42-0400 Diastolic blood pressure 68 mm[Hg] Karla Ribakow PA-C Work Phone: [facility] 10-17-2022 16:42-0400 Heart rate 74 /min Karla Ribakow PA-C Work Phone: [facility] 10-17-2022 16:42-0400 SaO2% (BldA) [Mass fraction] 99 % Karla Ribakow PA-C Work Phone: [facility] 10-17-2022 16:42-0400 Systolic blood pressure 126 mm[Hg] Akrla Ribakow PA-C Work Phone: [facility] 09-14-2022 10:41-0400 Body height 149.9 cm Demetrius France MD Work Phone: [facility] 09-14-2022 10:41-0400 Body temperature 97.81 [degF] Demetrius France MD Work Phone: [facility] 09-14-2022 10:41-0400 Body weight 78.02 kg Demetrius France MD Work Phone: [facility] 09-14-2022 10:41-0400 Diastolic blood pressure 71 mm[Hg] Demetrius France MD Work Phone: [facility] 09-14-2022 10:41-0400 Heart rate 85 /min Demetrius France MD Work Phone: [facility] 09-14-2022 10:41-0400 SaO2% (BldA) [Mass fraction] 98 % Demetrius France MD Work Phone: [facility] 09-14-2022 10:41-0400 Systolic blood pressure 138 mm[Hg] Demetrius France MD Work Phone: [facility] 09-12-2022 13:17-0400 Body temperature 99.7 [degF] Winnie Athy PA-C Work Phone: [facility] 09-12-2022 13:17-0400 Body weight 79.83 kg Winnie Athy PA-C Work Phone: [facility] 09-12-2022 13:17-0400 Diastolic blood pressure 72 mm[Hg] Winnie Athy PA-C Work Phone: [facility] 09-12-2022 13:17-0400 Heart rate 92 /min Winnie Athy PA-C Work Phone: [facility] 09-12-2022 13:17-0400 Respiratory rate 16 /min Winnie Athy PA-C Work Phone: [facility] 09-12-2022 13:17-0400 SaO2% (BldA) [Mass fraction] 98 % Winnie Athy PA-C Work Phone: [facility] 09-12-2022 13:17-0400 Systolic blood pressure 124 mm[Hg] Winnie Athy PA-C Work Phone: [facility] 09-12-2022 10:52-0400 Body height 149.9 cm Karla Ribakow PA-C Work Phone: [facility] 09-12-2022 10:52-0400 Body temperature 97.9 [degF] Karla Ribakow PA-C Work Phone: [facility] 09-12-2022 10:52-0400 Body weight 79.38 kg Karla Ribakow PA-C Work Phone: [facility] 09-12-2022 10:52-0400 Diastolic blood pressure 73 mm[Hg] Karla Ribakow PA-C Work Phone: [facility] 09-12-2022 10:52-0400 Heart rate 97 /min Karla Ribakow PA-C Work Phone: [facility] 09-12-2022 10:52-0400 Respiratory rate 18 /min Karla Ribakow PA-C Work Phone: [facility] 09-12-2022 10:52-0400 SaO2% (BldA) [Mass fraction] 98 % Karla Ribakow PA-C Work Phone: [facility] 09-12-2022 10:52-0400 Systolic blood pressure 135 mm[Hg] Karla Ribakow PA-C Work Phone: [facility] 09-05-2022 23:22-0400 Diastolic blood pressure 78 mm[Hg] [facility] 09-05-2022 23:22-0400 Heart rate 74 /min [facility] 09-05-2022 23:22-0400 Respiratory rate 16 /min [facility] 09-05-2022 23:22-0400 SaO2% (BldA) [Mass fraction] 97 % [facility] 09-05-2022 23:22-0400 Systolic blood pressure 119 mm[Hg] [facility] 09-05-2022 17:39-0400 Body height 152.4 cm [facility] 09-05-2022 17:39-0400 Body mass index (BMI) [Ratio] 33.9 kg/m2 [facility] 09-05-2022 17:39-0400 Body temperature 98 [degF] [facility] 09-05-2022 17:39-0400 Body weight 78.8 kg [facility] 08-29-2022 23:17-0400 Respiratory rate 18 /min [facility] 08-29-2022 19:03-0400 Body height 149.86 cm [facility] 08-29-2022 19:03-0400 Body mass index (BMI) [Ratio] 31.7 kg/m2 [facility] 08-29-2022 19:03-0400 Body temperature 97.6 [degF] [facility] 08-29-2022 19:03-0400 Body weight 71.21 kg [facility] 08-29-2022 19:03-0400 Diastolic blood pressure 89 mm[Hg] [facility] 08-29-2022 19:03-0400 Heart rate 94 /min [facility] 08-29-2022 19:03-0400 SaO2% (BldA) [Mass fraction] 99 % [facility] 08-29-2022 19:03-0400 Systolic blood pressure 123 mm[Hg] [facility] 07-17-2022 12:24-0400 Body mass index (BMI) [Ratio] 34.3 kg/m2 [facility] 07-17-2022 12:24-0400 Body temperature 97.1 [degF] [facility] 07-17-2022 12:24-0400 Body weight 77.11 kg [facility] 07-17-2022 12:24-0400 Diastolic blood pressure 61 mm[Hg] [facility] 07-17-2022 12:24-0400 Heart rate 78 /min [facility] 07-17-2022 12:24-0400 Respiratory rate 16 /min [facility] 07-17-2022 12:24-0400 SaO2% (BldA) [Mass fraction] 95 % [facility] 07-17-2022 12:24-0400 Systolic blood pressure 117 mm[Hg] [facility] 07-13-2022 20:00-0400 Respiratory rate 17 /min [facility] 07-13-2022 17:37-0400 Body mass index (BMI) [Ratio] 34.7 kg/m2 [facility] 07-13-2022 17:37-0400 Body temperature 97.8 [degF] [facility] 07-13-2022 17:37-0400 Body weight 78.15 kg [facility] 07-13-2022 17:37-0400 Diastolic blood pressure 83 mm[Hg] [facility] 07-13-2022 17:37-0400 Heart rate 78 /min [facility] 07-13-2022 17:37-0400 SaO2% (BldA) [Mass fraction] 98 % [facility] 07-13-2022 17:37-0400 Systolic blood pressure 117 mm[Hg] [facility] 07-12-2022 13:29-0400 Diastolic blood pressure 74 mm[Hg] [facility] 07-12-2022 13:29-0400 Heart rate 68 /min [facility] 07-12-2022 13:29-0400 Respiratory rate 16 /min [facility] 07-12-2022 13:29-0400 SaO2% (BldA) [Mass fraction] 97 % [facility] 07-12-2022 13:29-0400 Systolic blood pressure 125 mm[Hg] [facility] 07-12-2022 11:16-0400 Body height 149.86 cm [facility] 07-12-2022 11:16-0400 Body mass index (BMI) [Ratio] 34 kg/m2 [facility] 07-12-2022 11:16-0400 Body temperature 97.8 [degF] [facility] 07-12-2022 11:16-0400 Body weight 76.37 kg [facility] 05-30-2022 14:19-0400 Body height 150.3 cm SRINIVAS Parkinson PA-C Work Phone: [facility] 05-30-2022 14:19-0400 Body weight 73.94 kg NA Iggy CARRERA Work Phone: [facility] 05-30-2022 14:19-0400 Diastolic blood pressure 60 mm[Hg] NA Parkinson PA-C Work Phone: [facility] 05-30-2022 14:19-0400 Heart rate 86 /min NA Parkinson PA-C Work Phone: [facility] 05-30-2022 14:19-0400 Respiratory rate 16 /min NA Parkinson PA-C Work Phone: [facility] 05-30-2022 14:19-0400 SaO2% (BldA) [Mass fraction] 98 % NA Parkinson PA-C Work Phone: [facility] 05-30-2022 14:19-0400 Systolic blood pressure 112 mm[Hg] NA Parkinson PA-C Work Phone: [facility] 04-22-2022 14:57-0500 Body weight 73.48 kg NA Parkinson PA-C Work Phone: [facility] 04-22-2022 14:57-0500 Diastolic blood pressure 66 mm[Hg] NA Parkinson PA-C Work Phone: [facility] 04-22-2022 14:57-0500 Heart rate 72 /min NA Parkinson PA-C Work Phone: [facility] 04-22-2022 14:57-0500 Respiratory rate 16 /min NA Parkinson PA-C Work Phone: [facility] 04-22-2022 14:57-0500 SaO2% (BldA) [Mass fraction] 98 % NA Parkinson PA-C Work Phone: [facility] 04-22-2022 14:57-0500 Systolic blood pressure 124 mm[Hg] NA Parkinson PA-C Work Phone: [facility] 02-06-2022 14:45-0500 Body temperature 98.4 [degF] Dr. Roque Pope Work Phone: [facility] Work Phone: 02-06-2022 14:45-0500 Diastolic blood pressure 69 mm[Hg] Dr. Roque Pope Work Phone: [facility] Work Phone: 02-06-2022 14:45-0500 Heart rate 75 /min Dr. Roque Pope Work Phone: [facility] Work Phone: 02-06-2022 14:45-0500 Respiratory rate 18 /min Dr. Roque Pope Work Phone: [facility] Work Phone: 02-06-2022 14:45-0500 SaO2% (BldA) [Mass fraction] 98 % Dr. Roque Pope Work Phone: [facility] Work Phone: 02-06-2022 14:45-0500 Systolic blood pressure 106 mm[Hg] Dr. Roque Pope Work Phone: [facility] Work Phone: 02-06-2022 11:08-0500 Body height 165.[address] Roque Pope Work Phone: [facility] Work Phone: 02-06-2022 11:08-0500 Body weight 73.[address] Roque Pope Work Phone: [facility] Work Phone: 02-05-2022 19:26-0500 Body mass index (BMI) [Ratio] 26.9 kg/m2 Dr. Roque Pope Work Phone: [facility] Work Phone: 02-05-2022 17:38-0500 Body temperature 98.2 [degF] Dr. Roque Pope Work Phone: [facility] Work Phone: 02-05-2022 17:38-0500 Diastolic blood pressure 63 mm[Hg] Dr. Roque Pope Work Phone: [facility] Work Phone: 02-05-2022 17:38-0500 Heart rate 74 /min Dr. Roque Pope Work Phone: [facility] Work Phone: 02-05-2022 17:38-0500 Respiratory rate 17 /min Dr. Roque Pope Work Phone: [facility] Work Phone: 02-05-2022 17:38-0500 SaO2% (BldA) [Mass fraction] 97 % Dr. Roque Pope Work Phone: [facility] Work Phone: 02-05-2022 17:38-0500 Systolic blood pressure 106 mm[Hg] Dr. Roque Pope Work Phone: [facility] Work Phone: 02-04-2022 17:52-0500 Body height 152.[address] Roque Pope Work Phone: [facility] Work Phone: 02-04-2022 17:52-0500 Body mass index (BMI) [Ratio] 31.6 kg/m2 Dr. Roque Pope Work Phone: [facility] Work Phone: 02-04-2022 17:52-0500 Body weight 73.[address] Roque Pope Work Phone: [facility] Work Phone: 01-03-2022 17:11-0500 Body temperature 98.91 [degF] Randy Bojorquez APRN.EMBROIDERY DESIGNER Work Phone: [facility] 01-03-2022 17:11-0500 Body weight 73.48 kg Randy Bojorquez APRN.EMBROIDERY DESIGNER Work Phone: [facility] 01-03-2022 17:11-0500 Diastolic blood pressure 70 mm[Hg] Randy Bojorquez APRN.EMBROIDERY DESIGNER Work Phone: [facility] 01-03-2022 17:11-0500 Heart rate 72 /min Randy Bojorquez CUT OFF TENDER GLASS.EMBROIDERY DESIGNER Work Phone: [facility] 01-03-2022 17:11-0500 Respiratory rate 16 /min Randy Bojorquez CUT OFF TENDER GLASS.EMBROIDERY DESIGNER Work Phone: [facility] 01-03-2022 17:11-0500 SaO2% (BldA) [Mass fraction] 98 % Randy Bojorquez CUT OFF TENDER GLASS.EMBROIDERY DESIGNER Work Phone: [facility] 01-03-2022 17:11-0500 Systolic blood pressure 122 mm[Hg] Randy Bojorquez CUT OFF TENDER GLASS.EMBROIDERY DESIGNER Work Phone: [facility] 10-25-2021 15:55-0400 Body temperature 98.2 [degF] NA Parkinson PA-C Work Phone: [facility] 10-25-2021 15:55-0400 Body weight 73.48 kg NA Parkinson PA-C Work Phone: [facility] 10-25-2021 15:55-0400 Diastolic blood pressure 78 mm[Hg] NA Parkinson PA-C Work Phone: [facility] 10-25-2021 15:55-0400 Heart rate 74 /min NA Parkinson PA-C Work Phone: [facility] 10-25-2021 15:55-0400 Respiratory rate 16 /min NA Parkinson PA-C Work Phone: [facility] 10-25-2021 15:55-0400 SaO2% (BldA) [Mass fraction] 100 % NA Parkinson PA-C Work Phone: [facility] 10-25-2021 15:55-0400 Systolic blood pressure 118 mm[Hg] NA Parkinson PA-C Work Phone: [facility] 11-02-2017 05:06-0400 Body weight Measured 60.3288 kg [facility] Comment on above: Performed By: #### [id number] #### LAURO [employer] Subsection [address] [place] [id number] Encounters Encounter Date Encounter Type Care Provider Facility Start: 09-13-2024 End: 09-13-2024 Telephone encounter Roque Pope MD Work Phone: [facility] [place] Comment on above: Forms Start: 09-05-2024 End: 09-05-2024 Telephone encounter Tad Morton MD Work Phone: Gastroenterology Comment on above: Medication Problem Patient Update Start: 08-26-2024 End: 08-26-2024 Telephone encounter Tad Morton MD Work Phone: Gastroenterology Comment on above: Medication Authoriza tion (Skyrizi OBI- APPROVED through 08/22/2025) Start: 08-22-2024 End: 08-23-2024 Telephone encounter Karri Dacosta MD Work Phone: Gastroenterology Comment on above: Patient Update; Sandra ent Question Start: 08-09-2024 End: 08-09-2024 Emergency department patient visit Dr. Roque Pope MD Work Phone: -Emergency Department Work Phone: Start: 06-19-2024 End: 06-25-2024 Follow-up encounter Rakel Love APRN.EMBROIDERY DESIGNER Work Phone: OB/Gynecology Start: 06-18-2024 End: 06-18-2024 Patient encounter procedure Rakel Love APRN.EMBROIDERY DESIGNER Work Phone: OB/Gynecology Comment on above: Encounter for gyneco logical examination (general) (routine) without abnormal findings (Primary Dx); Encounter for Papanicolaou smear for cervical cancer screening; Special screening examination for human papillomavirus (HPV); Long-term use of immunosuppressant medication; Screen for STD (sexually transmitted disease); Encounter for surveillance of injectable contraceptive Start: 06-18-2024 End: 06-18-2024 Patient encounter status Rakel Love APRN.CNP Work Phone: [facility] Start: 06-18-2024 End: 06-18-2024 ambulatory RAKEL LOVE Facility:[facility] Start: 06-18-2024 Encounter for gynecological examination (general) (routine) without abnormal findings RAKEL LOVE [facility] Start: 06-18-2024 End: 06-25-2024 Telephone encounter Roque Pope MD Work Phone: [facility] [place] Comment on above: Forms (EMS Start [facility] program) Start: 05-23-2024 End: 05-23-2024 [facility] Start: 05-23-2024 End: 05-23-2024 Nursing evaluation of patient and report Nurse Sewage Plant Attendant [facility] Work Phone: OB/Gynecology Comment on above: Depo-Provera contrac eptive status (Primary Dx); Encounter for surveillance of other contraceptive Start: 05-20-2024 End: 05-20-2024 ambulatory ROQUE Sea NIKO Facility:[facility] Start: 05-20-2024 End: 05-20-2024 Patient encounter procedure Roque Pope MD Work Phone: [facility] [place] Comment on above: Crohn's [...] 05-01-2024 Refill Karla Ribakow PA-C Work Phone: [facility] [place] Comment on above: Refill Request (Annalisa esquivel OBI) Start: 04-22-2024 End: 04-22-2024 ambulatory KARLA RIBAKOW Facility:[facility] Start: 04-18-2024 End: 04-18-2024 ambulatory Karla Ribakow PA-C Work Phone: Gastroenterology Comment on above: Crohn's disease of b oth small and large intestine with complication (HCC) (Primary Dx) Start: 04-18-2024 End: 04-18-2024 Telemedicine consultation with patient Karla Marrufosilvino BURGER-C Work Phone: Gastroenterology Start: 04-17-2024 End: 04-17-2024 Telephone encounter Roque Pope MD Work Phone: [facility] [place] Comment on above: Letter (No show amaya er) Start: 04-10-2024 End: 04-10-2024 Telephone encounter Roque Pope MD Work Phone: [facility] [place] Comment on above: Patient Update Start: 04-06-2024 End: 04-10-2024 Telephone encounter Roque Pope MD Work Phone: [facility] [place] Comment on above: Insurance Authorizat ion (venlafaxine ER) Start: 04-03-2024 End: 04-03-2024 Refill Roque Pope MD Work Phone: [facility] [place] Comment on above: Refill Request Start: 02-27-2024 End: 02-27-2024 Nursing evaluation of patient and report Nurse Sewage Plant Attendant [facility] Work Phone: OB/Gynecology Comment on above: Encounter for manage ment and injection of depo-Provera (Primary Dx) Start: 02-27-2024 End: 02-27-2024 ambulatory ROQUE POPE Facility:[facility] Start: 02-16-2024 End: 02-16-2024 Refill Karla Leann CARRERA Work Phone: [facility] Comment on above: Refill Request Start: 02-15-2024 End: 02-15-2024 ambulatory Joseline Keys [facility] Start: 02-15-2024 End: 02-15-2024 Follow-up encounter Joseline Keys [facility] Comment on above: SPP Inflammatory Con ditions - Follow-up (Ahsanyralvin OBI); Insurance Authorization ([place] Renew[place] Submitted (New Insurance)) Start: 12-18-2023 End: 12-18-2023 Specialty Pharmacy [facility]eline [facility] Comment on above: SPP Inflammatory Con ditions - Medication Refill (Skyrizi OBI) Start: 11-22-2023 End: 11-22-2023 ambulatory [facility] Facility:[facility] Start: 11-22-2023 End: 11-22-2023 Patient encounter procedure Randy Bojorquez BRI Work Phone: [facility] Comment on above: Rhus dermatitis (Carrol elaine Dx); Secondary infection of skin Start: 10-31-2023 End: 10-31-2023 ambulatory [facility] Facility:[facility] Start: 10-31-2023 Encounter for genera l adult medical examination without abnormal findings ROQUE Osei [facility] Start: 10-31-2023 End: 10-31-2023 Patient encounter procedure Roque Pope MD Work Phone: [facility] Comment on above: Well adult exam (Carrol [...] encounter status Roque Pope MD Work Phone: [facility] Start: 10-19-2023 End: 10-19-2023 Specialty Pharmacy Joseline Keys [facility] Comment on above: SPP Inflammatory Con ditions - Medication Refill (Skyrizi - NCA 08/2023) Start: 10-17-2023 End: 10-17-2023 ambulatory [facility] Facility:[facility] Start: 10-17-2023 End: 10-17-2023 Nursing evaluation of patient and report Nurse Sewage Plant Attendant [facility] Work Phone: OB/Gynecology Comment on above: Encounter for manage ment and injection of depo-Provera (Primary Dx) Start: 09-19-2023 Refill Karla Noriega PA-C Work Phone: Hematology/Oncology Comment on above: Refill Request Start: 08-23-2023 Specialty Pharmacy Joseline Keys [facility] Comment on above: SPP Inflammatory Con ditions - Medication Refill (Skyrizi OBI - NCA 08/2023) SPP Inflammatory Con ditions - Follow-up (Skyrizi OBI); Insurance Authorization ([place] Renew[place] Submitted) Start: 07-25-2023 End: 07-25-2023 Nursing evaluation of patient and report Nurse Sewage Plant Attendant [facility] Work Phone: OB/Gynecology Comment on above: Encounter for manage ment and injection of depo-Provera (Primary Dx) Start: 06-30-2023 Specialty Pharmacy [facility]eline [facility] Comment on above: SPP Inflammatory Con ditions - Medication Refill (Skyrizi) Start: 06-28-2023 End: 06-28-2023 Patient encounter procedure Rakel Love APRN.EMBROIDERY DESIGNER Work Phone: OB/Gynecology Comment on above: Obesity, unspecified classification, unspecified obesity type, unspecified whether serious comorbidity present (Primary Dx) Start: 05-19-2023 End: 05-19-2023 Emergency department patient visit [facility] Work Phone: Start: 05-03-2023 Specialty Pharmacy Joseline Keys [facility] Comment on above: SPP Inflammatory Con ditions - Medication Refill (Skyrizi) Refill Request Start: 04-26-2023 End: 04-26-2023 Nursing evaluation of patient and report Nurse Sewage Plant Attendant [facility] Work Phone: OB/Gynecology Comment on above: Depo-Provera contrac eptive status (Primary Dx); Encounter for management and injection of depo-Provera Start: 04-17-2023 End: 04-17-2023 Patient encounter procedure Sydni Justin APRN.EMBROIDERY DESIGNER Work Phone: [facility] Comment on above: Muscle strain (Prima ry Dx) Start: 01-23-2023 End: 01-23-2023 ambulatory Treatment Rm 13 Addy [facility] Work Phone: Hematology/Oncology Comment on above: Crohn's disease of b oth small and large intestine with complication (HCC) (Primary Dx) Start: 12-26-2022 End: 12-26-2022 ambulatory Nitza Sargent [facility] Comment on above: Crohn's disease of b oth small and large intestine with complication (HCC) (Primary Dx) Start: 12-26-2022 Patient encounter procedure Nitza Arie [facility] Comment on above: SPP Inflammatory Con ditions - Treatment Referral (Jamaal); Insurance Authorization ([place] Submission Pending) Start: 12-15-2022 End: 12-15-2022 Patient encounter procedure Rakel Love APRN.EMBROIDERY DESIGNER Work Phone: OB/Gynecology Comment on above: Encounter for gyneco logical examination (general) (routine) without abnormal findings (Primary Dx); Malaise and fatigue; Class 1 obesity with body mass index (BMI) of 34.0 to 34.9 in adult, unspecified obesity type, unspecified whether serious comorbidity present Start: 12-15-2022 End: 12-15-2022 Patient encounter status Rakel Love APRN.EMBROIDERY DESIGNER Work Phone: [facility] Start: 12-14-2022 Telephone encounter Wilbert wilder MD Work Phone: Hematology/Oncology Comment on above: Appointment; Orders Start: 12-12-2022 End: 12-12-2022 Nursing evaluation of patient and report Mi Nurse Work Phone: [facility] [place] Comment on above: Need for vaccination (Primary Dx) Start: 11-25-2022 End: 11-25-2022 Patient encounter procedure Winnie Richards PA-C Work Phone: [facility] Comment on above: Ganglion cyst (Prima ry Dx) Start: 11-02-2022 End: 11-02-2022 Patient encounter procedure Demetrius France MD Work Phone: Colorectal Surgery Comment on above: Crohn's disease of s mall intestine with complication (HCC) (Primary Dx) Start: 10-20-2022 Orders Only Karla Ribakow PA-C Work Phone: Gastroenterology Start: 10-18-2022 ambulatory Karla Ribakow PA-C Work Phone: Gastroenterology Comment on above: Glucose Start: 10-17-2022 End: 10-17-2022 Patient encounter procedure Karla Ribakow PA-C Work Phone: Gastroenterology Comment on above: Crohn's disease of s mall and large intestines with complication (HCC) (Primary Dx) Start: 09-23-2022 Telephone encounter Fredrick CASTILLO Comment on above: Follow Up Phone Call [...] 09-12-2022 End: 09-12-2022 Patient encounter procedure Karla Marrufoakow PA-C Work Phone: Gastroenterology Comment on above: Crohn's disease of s mall and large intestines with complication (HCC) (Primary Dx) Strep pharyngitis (P rimary Dx) Start: 09-09-2022 Telephone encounter Sonya Medeiros APRN.EMBROIDERY DESIGNER Work Phone: Pre Anesthesia Comment on above: Request for outside medical records (ER visit and EKG) Pre-op Bowel Prep? Start: 09-07-2022 Telephone encounter Demetrius hsu MD Work Phone: Colorectal Surgery Comment on above: Patient Update Start: 09-05-2022 End: 09-05-2022 Emergency department patient visit [facility] Work Phone: Start: 09-02-2022 Telephone encounter Alvina Hobbs RN Colorectal Surgery Comment on above: Ldr Rn - O ther Start: 08-29-2022 End: 08-29-2022 Emergency department patient visit [facility] Work Phone: Start: 08-29-2022 Orders Only Karla Leann PA-C Work Phone: Gastroenterology Comment on above: What to do? Start: 08-25-2022 ambulatory Demetrius hutchins MD Work Phone: Colorectal Surgery Start: 08-24-2022 Telephone encounter Alvina Hobbs RN Colorectal Surgery Comment on above: Ldr Rn - O ther Patient Update Established Patient Start: 08-24-2022 End: 08-24-2022 Subsequent hospital visit by physician [facility] (I-Stat) Work Phone: Cat Scan Comment on above: Crohn's disease of s mall and large intestines with complication (HCC) [K50.819] Start: 08-23-2022 Telephone encounter Tad mas MD Work Phone: Gastroenterology Comment on above: Returning Patient's Call Start: 08-19-2022 Telephone encounter Alvina Hobbs RN Colorectal Surgery Comment on above: Ldr Rn - O ther Start: 08-17-2022 End: 08-17-2022 ambulatory Karla Leann PA-C Work Phone: Gastroenterology Comment on above: Crohn's disease of s mall and large intestines with complication (HCC) (Primary Dx) Test results in 2019 Start: 08-17-2022 End: 08-17-2022 Telemedicine consultation with patient Karla Taylormao PA-C Work Phone: [facility] Start: 08-12-2022 Telephone encounter Karri fallon MD Work Phone: [facility] Comment on above: Appointment Start: 08-09-2022 ambulatory Tad Morton MD Work Phone: Gastroenterology Comment on above: Colonoscopy procedur e Start: 07-29-2022 Telephone encounter Tad mas MD Work Phone: Gastroenterology Comment on above: Orders Start: 07-17-2022 End: 07-17-2022 [facility] Phone: Start: 07-13-2022 End: 07-13-2022 [facility] Phone: Start: 07-12-2022 End: 07-12-2022 [facility] Start: 06-29-2022 End: 06-29-2022 Nursing evaluation of patient and report Mi Nurse Work Phone: [facility] Comment on above: Need for vaccination (Primary Dx) Start: 06-13-2022 Telephone encounter Cory Parkinson PA-C Work Phone: [facility] Comment on above: Orders Start: 06-10-2022 End: 06-10-2022 Nursing evaluation of patient and report Mi Nurse Work Phone: [facility] Comment on above: Screening-pulmonary TB (Primary Dx) Start: 06-08-2022 End: 06-08-2022 Subsequent hospital visit by physician [facility] Work Phone: Radiology Comment on above: Thyromegaly [E01.0] Start: 06-08-2022 End: 06-08-2022 Nursing evaluation of patient and report Mi Nurse Work Phone: [facility] Comment on above: Screening-pulmonary TB (Primary Dx) Start: 06-03-2022 ambulatory Cory alvarez PA-C Work Phone: [facility] Comment on above: Shot Records Start: 06-03-2022 Telephone encounter Cory Parkinson PA-C Work Phone: [facility] Comment on above: Orders Start: 06-01-2022 End: 06-01-2022 Nursing evaluation of patient and report Mi Nurse Work Phone: [facility] Comment on above: Screening-pulmonary TB (Primary Dx) Start: 05-30-2022 End: 05-30-2022 Patient encounter procedure Cory Jakob Parkinson PA-C Work Phone: [facility] Comment on above: Adjustment disorder with anxiety (Primary Dx); Vaping nicotine dependence, non-tobacco product; Crohn's disease of small intestine with intestinal obstruction (HCC); SBO (small bowel obstruction) (HCC); Need for vaccination; Screening for lipid disorders; Thyromegaly; Screening-pulmonary TB; Well adult exam Start: 05-30-2022 End: 05-30-2022 Patient encounter status Cory Jakob Iggy BURGER-C Work Phone: [facility] Start: 04-27-2022 ambulatory Nurse Nurse [facility] Start: 04-22-2022 End: 04-22-2022 Patient encounter procedure Cory Jakob Iggy BURGER-C Work Phone: [facility] Comment on above: Adjustment disorder with anxiety (Primary Dx); Vaping nicotine dependence, non-tobacco product; SBO (small bowel obstruction) (HCC) Start: 04-20-2022 Refill Cory Jakob BURGER-C Work Phone: [facility] Comment on above: Refill Request Missed appointments Start: 04-19-2022 Telephone encounter Tad mas MD Work Phone: Gastroenterology Comment on above: Ldr Rn - O ther Start: 02-18-2022 End: 02-18-2022 ambulatory Tad Morton MD Work Phone: Gastroenterology Comment on above: Crohn's disease of b oth small and large intestine with intestinal obstruction (HCC) (Primary Dx) Start: 02-18-2022 End: 02-18-2022 Telemedicine consultation with patient Tad Morton MD Work Phone: [facility] Start: 02-11-2022 Patient Outreach Mckenzie Hunter RN Work Phone: Tram Operator Management Comment on above: Transition Of Care ( Initial tcm outreach d/c [facility] on 02/10/22, 2nd Attempt. ) Start: 02-06-2022 Non-patient / Non-visit Dr. Rizwana Pope Work Phone: [facility] Start: 02-05-2022 Non-patient / Non-visit Dr. Rizwana Pope Work Phone: [facility] Start: 02-05-2022 End: 02-06-2022 Evaluation and management of inpatient Dr. Roque Pope [facility] Start: 01-03-2022 End: 01-03-2022 Patient encounter procedure Randy Bojorquez APRN.CNP Work Phone: [facility] Comment on above: Neck pain (Primary D x) Start: 10-28-2021 Telephone encounter Cory Parkinson PA-C Work Phone: [facility] Comment on above: Patient Question Start: 10-25-2021 End: 10-25-2021 Patient encounter procedure Cory Parkinson PA-C Work Phone: [facility] Comment on above: Adjustment disorder with anxiety (Primary Dx) Start: 07-28-2021 Refill Tad Morton MD Work Phone: Gastroenterology Comment on above: Refill Request Start: 07-22-2021 Telephone encounter Tad mas MD Work Phone: Gastroenterology Comment on above: Medication Authoriza tion Start: 12-12-2019 End: 12-12-2019 Subsequent hospital visit by physician Ash[facility] Work Phone: Radiology Comment on above: Chronic pain of both knees [M25.561, M25.562, G89.29] Start: 03-23-2018 End: 03-24-2018 Patient encounter procedure José Antonio A Scooba Facility:[facility] Start: 03-16-2018 End: 03-17-2018 Patient encounter procedure José Antonio A Scooba Facility:[facility] Start: 03-16-2018 End: 03-17-2018 Patient encounter procedure José Antonio A Scooba Facility:[facility] Start: 03-16-2018 Patient encounter procedure PCP UNKNOWN Facility:[id number] Start: 02-15-2018 End: 02-16-2018 Patient encounter procedure José Antonio A Scooba Facility:[facility] Start: 01-26-2018 End: 01-27-2018 Patient encounter procedure José Antonio A Scooba Facility:[facility] Start: 01-12-2018 End: 01-13-2018 Patient encounter procedure Carine Paredes Facility:[facility] Start: 12-13-2017 End: 12-14-2017 Patient encounter procedure José Antonio A Scooba Facility:[facility] Start: 11-29-2017 End: 11-29-2017 Patient encounter procedure José Antonio A Scooba Facility:[facility] Start: 11-21-2017 End: 11-22-2017 Patient encounter procedure José Antonio A Scooba Facility:[facility] Start: 11-21-2017 Patient encounter procedure PCP UNKNOWN Facility:[id number] Start: 10-31-2017 End: 11-01-2017 Patient encounter procedure José Antonio A Scooba Facility:[facility] Start: 10-31-2017 Patient encounter procedure PCP UNKNOWN Facility:[id number] Start: 10-09-2017 End: 10-10-2017 Patient encounter procedure Elzbieta Russell Facility:[facility] Start: 10-09-2017 Patient encounter procedure PCP UNKNOWN Facility:[id number] Start: 10-07-2017 End: 10-07-2017 Patient encounter procedure Adriana Junior Facility:[facility] Start: 10-06-2017 End: 10-06-2017 Patient encounter procedure Adriana Junior Facility:[facility] Start: 10-03-2017 End: 10-04-2017 Patient encounter procedure José Antonio A Zia Facility:[facility] Start: 09-26-2017 End: 09-26-2017 Patient encounter procedure José Antonio A Scooba Facility:[facility] Start: 09-21-2017 Patient encounter procedure LULY BARFIELD Facility:[facility] Start: 09-21-2017 End: 09-22-2017 Evaluation and management of inpatient CLOSONALI SAM Facility:[facility] Start: 09-04-2017 End: 09-05-2017 Patient encounter procedure José Antonio A Scooba Facility:[facility] Start: 07-13-2017 End: 07-14-2017 [facility] Start: 07-13-2017 End: 07-14-2017 [facility] Start: 07-04-2017 End: 07-05-2017 Patient encounter procedure Adriana Junior Facility:[facility] Start: 06-22-2017 End: 06-23-2017 Patient encounter procedure Mary Arnoldo Jackharish Facility:[facility] Start: 02-09-2017 End: 02-09-2017 Emergency department patient visit AMANDEEP LINCOLN Facility:B Start: 01-18-2017 End: 01-19-2017 Ambulatory PHY WO ID~[id number] REFERRING Facility:[facility] Start: 01-18-2017 End: 01-18-2017 Emergency department patient visit MYKE Azeb HARKINS Facility:B Start: 01-12-2017 End: 01-13-2017 Ambulatory LONNIE CRUZ Facility:[id number] Start: 12-18-2016 End: 12-18-2016 Emergency department patient visit EDMUND METZGER Facility:B Start: 12-16-2016 End: 12-16-2016 Emergency department patient visit OLGA PARKER Facility:B Start: 12-14-2016 End: 12-14-2016 Emergency department patient visit CHARISSA PELLETIER Facility:[facility] Start: 09-16-2016 End: 09-16-2016 Emergency department patient visit Skyler Argueta Elvin Facility:[facility] Date Procedure Procedure Detail Performing Clinician Start: 06-18-2024 Iadna chlamydia trachomatis amplified probe tq Rakel Love CUT OFF TENDER GLASS.EMBROIDERY DESIGNER Work Phone: Start: 05-20-2024 Adult depression scr eening assessment Adele Dickson CUT OFF TENDER GLASS.EMBROIDERY DESIGNER Work Phone: Start: 02-27-2024 UA DIP,URINE HCG (POC) Kamila Long RN Start: 04-26-2023 Urine test visual color cmprsn carey Rader MD Work Phone: Start: 09-12-2022 STREP A MOLECULAR (POC) Winnie Richards PA-C Work Phone: Start: 09-05-2022 Plain chest X-ray Start: 08-29-2022 Computed tomography of abdomen and pelvis with intravenous contrast Start: 08-29-2022 Urine culture Start: 08-24-2022 Ct abdomen & pelvis w/contrast material Karla Noriega PA-C Work Phone: Start: 07-17-2022 X-ray of both feet Start: 07-13-2022 Plain X-ray abdomen Start: 06-08-2022 Us soft tissue head & neck real time imge docm Cory Jakob Parkinson PA-C Work Phone: Start: 05-30-2022 Skin test tuberculos is intradermal Cory Parkinson PA-C Work Phone: Start: 02-05-2022 Plain X-ray abdomen Dr. Roque Pope Work Phone: Start: 02-04-2022 Computed tomography of abdomen and pelvis with intravenous contrast Dr. Roque Pope Work Phone: Start: 12-12-2019 Radiologic exam knee complete 4/more views Cory Parkinson PA-C Work Phone: Start: 09-26-2017 Antibody screen PAR[facility] SAM Comment on above: Order Comment: TEST TYPE + SCREEN WAS CANCELLED, 09/26/2017 15:46 DUPLICATE ORDER. Performed By: #### T +S ####[id number] [place] [address] Start: 09-22-2017 Antibody screen [facility] Comment on above: Order Comment: TEST TYPE + SCREEN WAS CANCELLED, 09/22/2017 15:56 DUPLICATE ORDER see [id number]. Result Comment: This is a corrected result. Previous value was NEG, verified at 09/21/2017 11:03 Performed By: #### T +S #### [facility] [address] [address] Plan of Treatment Date Care Activity Detail Author Start: 01-28-2028 Urine microalbumin profile [facility] Start: 12-15-2026 HPV TESTING HPV TESTING [facility] Start: 12-15-2026 PAP TESTING PAP TESTING [facility] Start: 12-15-2026 Screening for malignant neoplasm of cervix [facility] Start: 08-28-2025 PAP TESTING PAP TESTING [facility] Start: 06-18-2025 Screening for malignant neoplasm of cervix Cervical Cancer Screening [facility] Start: 06-18-2025 End: 06-18-2025 Patient encounter procedure 06/18/2025 10:00 AM EDT Office Visit OB/Gynecology [address] [place] [address] Rakel Love APRN.EMBROIDERY DESIGNER [address] [place] [address] Annual OB/Gynecology Comment on above: Annual Start: 05-20-2025 Depression Screening Depression Screening [facility] Start: 12-02-2024 End: 12-02-2024 Patient encounter procedure 12/02/2024 8:40 AM EDT Office Visit Family [facility] [address] [place] [id number] Roque Pope MD [address] [place] [address] 6 mo follow up Family [facility] Comment on above: 6 mo follow up Start: 10-30-2024 Covid-19 Vaccine () Covid-19 Vaccine () [facility] Comment on above: Postponed from 10/29/2023 (Declined at t his time) Start: 10-30-2024 Covid-19 Vaccine () Covid-19 Vaccine () [facility] Comment on above: Postponed from 10/29/2023 (Declined at t his time) Start: 08-16-2024 End: 08-16-2024 Nursing evaluation of patient and report 08/16/2024 9:00 AM EDT Nurse Visit OB/Gynecology [address] [place] [id number] Wstr, Nurse Sewage Plant Attendant [facility] [address] [place] [id number] [facility] OB/Gynecology Comment on above: Depo Start: 08-09-2024 [facility] Start: 06-17-2024 End: 06-17-2024 Patient encounter procedure 06/17/2024 4:00 PM EDT Office Visit OB/Gynecology [address] [place] [address] Adele Dickson APRN.EMBROIDERY DESIGNER [address] [place] [address] Annual OB/Gynecology Comment on above: Annual Start: 05-23-2024 End: 05-23-2024 Nursing evaluation of patient and report 05/23/2024 4:00 PM EDT Nurse Visit OB/Gynecology [address] [place] [address] Wstr, Nurse Sewage Plant Attendant [facility] [address] [place] [address] [facility] OB/Gynecology Comment on above: Depo Start: 05-20-2024 End: 05-20-2024 Patient encounter procedure 05/20/2024 5:20 PM EDT Office Visit [facility] [place] [address] [facility] [place] [address] Roque Pope MD [address] [place] [address] follow up on meds [facility] [place] Comment on above: follow up on meds Start: 05-20-2024 End: 05-20-2024 Nursing evaluation of patient and report 05/20/2024 11:00 AM EDT Nurse Visit OB/Gynecology [address] [place] [address] Wstr, Nurse Sewage Plant Attendant [facility] [address] [facility] [place] [address] [facility] OB/Gynecology Comment on above: Depo Start: 04-18-2024 End: 04-18-2024 Follow-up encounter 04/18/2024 3:00 PM EST [facility] [address] [address] Karla Noriega PA-C [address] [address] follow up crohns Gastroenterology Comment on above: follow up crohns Start: 04-18-2024 End: 07-18-2024 25-hydroxyvitamin D3 [Mass/volume] in Serum or Plasma VITAMIN D 25 HYDROXY Lab Routine Crohn's disease of both small and large intestine with complication (HCC) Expected: 04/18/2024, Expires: 07/18/2024 [facility] Comment on above: Expected: 04/18/2024, Expires: Start: 04-18-2024 End: 07-18-2024 BLOOD TB SCREEN BLOOD TB SCREEN Lab Routine Crohn's disease of both small and large intestine with complication (HCC) Expected: 04/18/2024, Expires: 07/18/2024 [facility] Comment on above: Expected: 04/18/2024, Expires: Start: 04-18-2024 End: 07-18-2024 C reactive protein [Mass/volume] in Serum or Plasma C-REACTIVE PROTEIN Lab Routine Crohn's disease of both small and large intestine with complication (HCC) Expected: 04/18/2024, Expires: 07/18/2024 [facility] Comment on above: Expected: 04/18/2024, Expires: Start: 04-18-2024 End: 07-18-2024 CBC W Auto Differential panel - Blood COMPLETE BLOOD COUNT AND DIFFERENTIAL Lab Routine Crohn's disease of both small and large intestine with complication (HCC) Expected: 04/18/2024, Expires: 07/18/2024 [facility] Work Phone: Comment on above: Expected: 04/18/2024, Expires: Start: 04-18-2024 End: 07-18-2024 Cobalamin (Vitamin B12) [Mass/volume] in Serum or Plasma VITAMIN B12 Lab Routine Crohn's disease of both small and large intestine with complication (HCC) Expected: 04/18/2024, Expires: 07/18/2024 [facility] Comment on above: Expected: 04/18/2024, Expires: Start: 04-18-2024 End: 07-18-2024 Comprehensive metabolic 2000 panel - Serum or Plasma COMPREHENSIVE METABOLIC PANEL Lab Routine Crohn's disease of both small and large intestine with complication (HCC) Expected: 04/18/2024, Expires: 07/18/2024 [facility] Comment on above: Expected: 04/18/2024, Expires: Start: 04-17-2024 End: 04-17-2024 Patient encounter procedure 04/17/2024 11:20 AM EST Office Visit [facility] [address] [place], [place] [id number] Roque Pope MD [address] [place] [address] 3 month f/u medication [facility] Comment on above: 3 month f/u medication Start: 04-11-2024 End: 04-11-2024 Patient encounter procedure 04/11/2024 11:00 AM EST Office Visit [facility] [address] [place] [address] Roque Pope MD [address] [place] [address] 3 month f/u medication [facility] Comment on above: 3 month f/u medication Start: 02-16-2024 End: 02-16-2024 Specialty Pharmacy 02/16/2024 9:00 AM EST Specialty Pharmacy [facility] Specialty Pharmacy [id number] [place] [address] Pharmacist, [facility] [address] [place] [address] Refill- Skyrizi OBI- PAx- 08/21/24 - ND 02/21-new ins renewal sub 02/14 [facility] Comment on above: Refill- Skyrizi OBI- PAx- 08/21/24 - ND 1 2/26-new ins renewal sub 02/14 Start: 01-09-2024 End: 01-09-2024 Nursing evaluation of patient and report 01/09/2024 4:00 PM EST Nurse Visit OB/Gynecology [address] [place] [address] Wstr, Nurse Sewage Plant Attendant [facility] [address] [place] [address] [facility] OB/Gynecology Comment on above: Depo Start: 12-21-2023 End: 12-21-2023 Specialty Pharmacy 12/21/2023 9:00 AM EDT [facility]ty [facility] [address] [place], [place] [id number] [place] [address] Pharmacist, [facility] [address] [place] [address] [place] [address] Refill- Skyrizi OBI- PAx- 08/21/24 - ND 12/27-l/m 12/17 [facility] Comment on above: Refill- Skyrizi OBI- PAx- 6 - ND 1 -l/m 12/17 Start: 12-19-2023 End: 12-19-2023 Patient encounter procedure 12/19/2023 4:00 PM EDT Office Visit OB/Gynecology [address] [place] [address] Rakel Love APRN.EMBROIDERY DESIGNER [address] [place] [address] Annual OB/Gynecology Comment on above: Annual Start: 12-18-2023 End: 12-18-2023 Specialty Pharmacy [facility] Comment on above: Refill- Skyrizi OBI- NCA 08/2023- PAx- - ND 12/27 Refill- Skyrizi OBI- PAx- / - ND 12/27 Start: 11-28-2023 End: 11-28-2023 Patient encounter procedure 11/28/2023 9:20 AM EDT Office Visit [facility] [place] [address] [facility] [place] [address] Kandice Harman APRN.EMBROIDERY DESIGNER [address] [facility] [facility] [place] [id number] 4 week follow up from starting Effexor [facility] Comment on above: 4 week follow up from starting Effexor Start: 10-31-2023 End: 01-30-2024 CBC W Auto Differential panel - Blood COMPLETE BLOOD COUNT AND DIFFERENTIAL Lab Routine Crohn's disease of both small and large intestine with complication (HCC) Well adult exam Expected: 10/31/2023, Expires: 01/30/2024 [facility] Work Phone: Comment on above: Expected: 10/31/2023, Expires: Start: 10-31-2023 End: 01-30-2024 Comprehensive metabolic 2000 panel - Serum or Plasma COMPREHENSIVE METABOLIC PANEL Lab Routine Crohn's disease of both small and large intestine with complication (HCC) Well adult exam Expected: 10/31/2023, Expires: 01/30/2024 [facility] Comment on above: Expected: 10/31/2023, Expires: Start: 10-31-2023 Depression Screening Depression Screening [facility] Comment on above: Postponed from 08/02/2009 (Declined at t his time) Start: 10-31-2023 End: 01-30-2024 Lipid 1996 panel - Serum or Plasma LIPID PANEL BASIC Lab Routine Class 1 obesity with body mass index (BMI) of 30.0 to 30.9 in adult, unspecified obesity type, unspecified whether serious comorbidity present Well adult exam Expected: 10/31/2023, Expires: 01/30/2024 [facility] Comment on above: Expected: 10/31/2023, Expires: Start: 10-31-2023 End: 10-31-2023 Patient encounter procedure 10/31/2023 10:40 AM EDT Office Visit Family [facility] [place] [address] [place] [address] Roque Pope MD [address] [place] [address] Dee + discuss restarting medication [facility] Medicine [place] Comment on above: Dee + discuss restarting medication Start: 10-29-2023 Influenza vaccination Influenza Vaccine (#1) [place] Michelle bowden Start: 10-24-2023 End: 10-24-2023 Specialty Pharmacy 10/24/2023 9:00 AM EDT Specialty Pharmacy [facility] [address] [place], [place] [id number] Pharmacist, [facility]ty[facility] [address] [place] [address] [place] [address] Refill- Skyrizi OBI- NCA 08/2023- PAx- 6/ - ND 9/3-l/m 10/18 [facility] Comment on above: Refill- Skyrizi OBI- NCA 08/2023- PAx- 6/ - ND 9/3-l/m 10/18 Start: 10-19-2023 End: 10-19-2023 Specialty Pharmacy 10/19/2023 9:00 AM EDT Specialty Pharmacy [facility] [address] [place] [address] Pharmacist, [facility] [address] [place] [address] [place] [address] Refill- Skyrizi OBI- NCA 08/2023- PAx- 6/ - ND 10/30 [facility] Comment on above: Refill- Skyrizi OBI- NCA 08/2023- PAx- 6/ 25/25 - ND 10/30 Start: 10-17-2023 End: 10-17-2023 Nursing evaluation of patient and report 10/17/2023 4:00 PM EDT Nurse Visit OB/Gynecology [address] [place] [address] Wstr, Nurse Sewage Plant Attendant [facility] [address] [place] [address] [facility] OB/Gynecology Comment on above: Depo Start: 09-20-2023 End: 09-20-2023 Specialty Pharmacy 09/20/2023 9:00 AM EDT Specialty Pharmacy [facility] [address] [place] [address] Pharmacist, [facility]ty[facility] [address] [place] [address] [place] [address] Refill- Skyrizi OBI- NCA 08/2023- PAx- 3/- 09/04 - PA RENEWAL sub 08/22 [facility] Comment on above: Refill- Skyrizi OBI- NCA 08/2023- PAx- 3/ - 09/04 - PA RENEWAL sub 08/22 Start: 08-29-2023 PAP TESTING PAP TESTING [facility] Start: 08-23-2023 End: 08-23-2023 Specialty Pharmacy 08/23/2023 9:00 AM EDT Specialty Pharmacy [facility] [address] [place] [address] Pharmacist, [facility] [address] [place] [address] [place] [address] Refill- Skyrizi OBI- NCA 08/2023- PAx- 3/- 09/04 - PA RENEWAL NEEDED [facility] Comment on above: Refill- Skyrizi OBI- NCA 08/2023- PAx- 3/ - 09/04 - PA RENEWAL NEEDED Start: 07-25-2023 End: 07-25-2023 Nursing evaluation of patient and report 07/25/2023 9:00 AM EDT Nurse Visit OB/Gynecology [address] [place] [address] Wstr, Nurse Sewage Plant Attendant [facility] [address] [place], [place] [phone] [facility] OB/Gynecology Comment on above: Depo Start: 07-19-2023 End: 07-19-2023 Nursing evaluation of patient and report 07/19/2023 9:00 AM EDT Nurse Visit OB/Gynecology [address] [address] Wstr, Nurse Sewage Plant Attendant [facility] [address] [place] [address] [facility] OB/Gynecology Comment on above: Depo Start: 07-05-2023 End: 07-05-2023 Specialty Pharmacy 07/05/2023 9:00 AM EDT Specialty Pharmacy [facility] [address] [place] [address] Pharmacist, [facility] [address] [place] [address] [place] [address] Refill- Skyrizi OBI- NCA 08/2023- PAx- 3/- ND 07/10-l/m 06/29 [facility] Comment on above: Refill- Skyrizi OBI- NCA 08/2023- PAx- 3/ /- ND 07/10-l/m 5 Start: 06-30-2023 End: 06-30-2023 Specialty Pharmacy 06/30/2023 9:00 AM EDT Specialty Pharmacy [facility] [address] [place] [address] Pharmacist, [facility] [address] [place] [address] [place] [address] Refill- Skyrizi OBI- NCA 08/2023- PAx- 3//24- ND 07/10 [facility] Comment on above: Refill- Skyrizi OBI- NCA 08/2023- PAx- 3/ 25/24- ND 07/10 Start: 05-19-2023 [facility] Start: 05-12-2023 HPV TESTING HPV TESTING [facility] Start: 02-27-2023 Behavioral Health Screening Behavioral Health Screening [facility] Start: 02-27-2023 Depression Assessment Depression Assessment [facility] Start: 12-15-2022 End: 03-16-2023 Hemoglobin A1c in Blood [facility] Work Phone: Comment on above: Expected: 12/15/2022, Expires: 4 Start: 11-29-2022 Hepb vaccine adult 3 dose schedule for im use HEP B VACCINE, 3-DOSE, AGE 20+ YR (ENGERIX-B, RECOMBIVAX HB) Immunization/Injection Routine Need for vaccination Expected: 11/29/2022 (Approximate) [facility] Work Phone: Comment on above: Expected: 11/29/2022 (Approximate) Start: 11-22-2022 COVID-19 VACCINE (3 - Pfizer risk series) COVID-19 VACCINE (3 - Pfizer risk series) [facility] Comment on above: Postponed from 12/14/2020 (Declined at t his time) Start: 11-22-2022 COVID-19 VACCINE (3 - Pfizer series) COVID-19 VACCINE (3 - Pfizer series) [facility] Comment on above: Postponed from 01/11/2021 (Declined at t his time) Start: 11-22-2022 PNEUMOCOCCAL (1 - PCV) PNEUMOCOCCAL (1 - PCV) [facility] Comment on above: Postponed from 08/02/1997 (Declined at t his time) Start: 11-22-2022 SHINGRIX VACCINE (1 of 2) SHINGRIX VACCINE (1 of 2) [facility] Comment on above: Postponed from 08/02/2010 (Declined at t his time) Start: 10-28-2022 Covid-19 Vaccine (2022- season) Covid-19 Vaccine (2022- season) [facility] Start: 10-28-2022 Influenza vaccination [facility] Start: 10-19-2022 End: 12-19-2022 CBC W Auto Differential panel - Blood CBC + DIFF Lab Routine Crohn's disease of small and large intestines with complication (HCC) Elevated LFTs Expected: 10/19/2022, Expires: 12/19/2022 [facility] Work Phone: Comment on above: Expected: 10/19/2022, Expires: 3 Start: 10-19-2022 End: 12-19-2022 Comprehensive metabolic 2000 panel - Serum or Plasma COMP METABOLIC PANEL Lab Routine Crohn's disease of small and large intestines with complication (HCC) Elevated LFTs Expected: 10/19/2022, Expires: 12/19/2022 [facility] Work Phone: Comment on above: Expected: 10/19/2022, Expires: 3 Start: 09-07-2022 End: 11-07-2022 CBC panel - Blood by Automated count CBC Lab Routine Crohn's disease of both small and large intestine with complication (HCC) Expected: 09/07/2022 (Approximate), Expires: 11/07/2022 [facility] Work Phone: Comment on above: Expected: 09/07/2022 (Approximate), Expi res: 11/07/2022 Start: 09-07-2022 End: 11-07-2022 CONFIRM BLOOD TYPE CONFIRM BLOOD TYPE Blood Bank Routine Crohn's disease of both small and large intestine with complication (HCC) Expected: 09/07/2022, Expires: 11/07/2022 [facility] Work Phone: Comment on above: Expected: 09/07/2022, Expires: 3 Start: 09-07-2022 End: 11-07-2022 TYPE AND SCREEN,30 DAY TYPE AND SCREEN,30 DAY Blood Bank Routine Crohn's disease of both small and large intestine with complication (HCC) Expected: 09/07/2022, Expires: 11/07/2022 [facility] Work Phone: Comment on above: Expected: 09/07/2022, Expires: 3 Start: 09-05-2022 [facility] Start: 08-29-2022 [facility] Start: 08-17-2022 End: 10-17-2022 25-hydroxyvitamin D3 [Mass/volume] in Serum or Plasma VITAMIN D 25 HYDROXY Lab Routine Crohn's disease of small and large intestines with complication (HCC) Expected: 08/17/2022, Expires: 10/17/2022 [facility] Work Phone: Comment on above: Expected: 08/17/2022, Expires: 3 Start: 08-17-2022 End: 10-17-2022 ADALIMUMAB ACTIVITY AND NEUTRALIZING ANTIBODY ADALIMUMAB ACTIVITY AND NEUTRALIZING ANTIBODY Lab Routine Crohn's disease of small and large intestines with complication (HCC) Expected: 08/17/2022, Expires: 10/17/2022 [facility] Work Phone: Comment on above: Expected: 08/17/2022, Expires: 3 Start: 08-17-2022 End: 10-17-2022 BLOOD TB SCREEN BLOOD TB SCREEN Lab Routine Crohn's disease of small and large intestines with complication (HCC) Expected: 08/17/2022, Expires: 10/17/2022 [facility] Work Phone: Comment on above: Expected: 08/17/2022, Expires: 3 Start: 08-17-2022 End: 10-17-2022 C reactive protein [Mass/volume] in Serum or Plasma C-REACTIVE PROTEIN (CRP) Lab Routine Crohn's disease of small and large intestines with complication (HCC) Expected: 08/17/2022, Expires: 10/17/2022 [facility] Work Phone: Comment on above: Expected: 08/17/2022, Expires: 3 Start: 08-17-2022 End: 10-17-2022 CBC W Auto Differential panel - Blood CBC + DIFF Lab Routine Crohn's disease of small and large intestines with complication (HCC) Expected: 08/17/2022, Expires: 10/17/2022 [facility] Work Phone: Comment on above: Expected: 08/17/2022, Expires: 3 Start: 08-17-2022 End: 10-17-2022 Cobalamin (Vitamin B12) [Mass/volume] in Serum or Plasma VITAMIN B12 BLOOD Lab Routine Crohn's disease of small and large intestines with complication (HCC) Expected: 08/17/2022, Expires: 10/17/2022 [facility] Work Phone: Comment on above: Expected: 08/17/2022, Expires: 3 Start: 08-17-2022 End: 10-17-2022 Comprehensive metabolic 2000 panel - Serum or Plasma COMP METABOLIC PANEL Lab Routine Crohn's disease of small and large intestines with complication (HCC) Expected: 08/17/2022, Expires: 10/17/2022 [facility] Work Phone: Comment on above: Expected: 08/17/2022, Expires: 3 Start: 08-17-2022 End: 10-17-2022 TPMT PHENOTYPE/ENZYME ACTIVITY TPMT PHENOTYPE/ENZYME ACTIVITY Lab Routine Crohn's disease of small and large intestines with complication (HCC) Expected: 08/17/2022, Expires: 10/17/2022 [facility] Work Phone: Comment on above: Expected: 08/17/2022, Expires: 3 Start: 07-13-2022 [facility] Start: 05-30-2022 End: 07-30-2022 Lipid 1996 panel - Serum or Plasma LIPID PANEL BASIC Lab Routine Screening for lipid disorders Expected: 05/30/2022, Expires: 07/30/2022 [facility] Work Phone: Comment on above: Expected: 05/30/2022, Expires: 3 Start: 05-30-2022 End: 07-30-2022 Thyrotropin [Units/volume] in Serum or Plasma TSH BLD Lab Routine Adjustment disorder with anxiety Thyromegaly Expected: 05/30/2022, Expires: 07/30/2022 [facility] Work Phone: Comment on above: Expected: 05/30/2022, Expires: Start: 05-30-2022 End: 07-30-2022 Thyroxine (T4) free [Mass/volume] in Serum or Plasma T4 FREE/FREE THYROX Lab Routine Thyromegaly Expected: 05/30/2022, Expires: 07/30/2022 [facility] Work Phone: Comment on above: Expected: 05/30/2022, Expires: 3 Start: 02-27-2022 DEPRESSION ASSESSMENT DEPRESSION ASSESSMENT [facility] Start: 02-07-2022 Blood chemistry [facility] Work Phone: Start: 02-06-2022 Patient discharge [facility] Work Phone: Start: 02-05-2022 Insertion of nasogastric tube [facility] Work Phone: Start: 02-05-2022 Following clinical pathway protocol [facility] Work Phone: Start: 02-05-2022 Ambulation without limitation [facility] Work Phone: Start: 02-05-2022 Assessment of risk of venous thromboembolism [facility] Work Phone: Start: 02-05-2022 Insertion of catheter into peripheral vein [facility] Work Phone: Start: 02-05-2022 Providing care according to standard [facility] Work Phone: Start: 02-05-2022 Referral to general surgeon [facility] Work Phone: Start: 02-05-2022 [facility] Work Phone: Start: 02-05-2022 Plain X-ray abdomen Abdomen Single View (Portable) [facility] Work Phone: Start: 02-05-2022 Admission procedure [facility] Work Phone: Start: 02-05-2022 Verification routine [facility] Work Phone: Start: 10-28-2021 Influenza vaccination [facility] Start: 02-27-2021 DEPRESSION ASSESSMENT DEPRESSION ASSESSMENT [facility] Start: 01-11-2021 Covid-19 Vaccine (3 - Pfizer series) Covid-19 Vaccine (3 - Pfizer series) [facility] Start: 12-14-2020 COVID-19 VACCINE (3 - Pfizer risk series) COVID-19 VACCINE (3 - Pfizer risk series) [facility] Start: 08-02-2010 HEPATITIS A (1 of 2 - Risk 2-dose series) HEPATITIS A (1 of 2 - Risk 2-dose series) [facility] Start: 08-02-2010 Hepatitis A Vaccine (1 of 2 - Risk 2-dose series) Hepatitis A Vaccine (1 of 2 - Risk 2-dose series) [facility] Start: 08-02-2010 SHINGRIX VACCINE (1 of 2) SHINGRIX VACCINE (1 of 2) [facility] Start: 08-02-2009 Depression Screening Depression Screening [facility] Start: 08-02-2009 HIV SCREENING HIV SCREENING [facility] Start: 08-02-2009 HIV screening HIV Screening [facility] Start: 08-02-2009 MMR (1 of 2 - Risk 2-dose series) MMR (1 of 2 - Risk 2-dose series) [facility] Start: 2003 Adult depression screening assessment DEPRESSION SCREENING [facility] Start: 08-02-2001 Meningococcal B Vaccine: Consider Based On Risk (1 of 4 - Increased Risk) Meningococcal B Vaccine: Consider Based On Risk (1 of 4 - Increased Risk) [facility] Start: 08-02-2001 MENINGOCOCCAL B: Consider based on risk (1 of 4 - Increased Risk Bexsero 2-dose series) MENINGOCOCCAL B: Consider based on risk (1 of 4 - Increased Risk Bexsero 2-dose series) [facility] Start: 08-02-2001 MENINGOCOCCAL B: Consider based on risk (1 of 4 - Increased Risk) MENINGOCOCCAL B: Consider based on risk (1 of 4 - Increased Risk) [facility] Start: 08-02-1997 PNEUMOCOCCAL (1 - PCV) PNEUMOCOCCAL (1 - PCV) [facility] Start: 08-02-1997 Pneumococcal vaccination Pneumococcal Vaccine (1 of 2 - PCV) [facility] Start: 08-02-1992 HEPATITIS A (1 of 2 - Risk 2-dose series) HEPATITIS A (1 of 2 - Risk 2-dose series) [facility] Calprotectin [Mass/mass] in Stool CALPROTECTIN,FECAL Lab Routine Crohn's disease of small and large intestines with complication (HCC) Ordered: 10/17/2022 [facility] Work Phone: Comment on above: Ordered: 10/17/2022 Calprotectin [Mass/mass] in Stool CALPROTECTIN,FECAL Lab Routine Crohn's disease of both small and large intestine with complication (HCC) Ordered: 04/18/2024 [facility] Comment on above: Ordered: 04/18/2024 End: 09-16-2023 Ct abdomen & pelvis w/contrast material CT ENTEROGRAPHY W IVCON Radiology Routine Crohn's disease of small and large intestines with complication (HCC) 1 Occurrences starting 08/17/2022 until 09/16/2023 [facility] Work Phone: Comment on above: 1 Occurrences starting 08/17/2022 until 09/16/2023 End: 08-26-2023 ECG COMPLETE ECG COMPLETE ECG Routine Crohn's disease of both small and large intestine with complication (HCC) 1 Occurrences starting 08/25/2022 until 08/26/2023 [facility] Work Phone: Comment on above: 1 Occurrences starting 08/25/2022 until 08/26/2023 End: 04-18-2025 Flexible sigmoidoscopy study COLONOSCOPY DIAGNOSTIC Endoscopy Routine Crohn's disease of both small and large intestine with complication (HCC) 1 Occurrences starting 04/18/2024 until 04/18/2025 [facility] Comment on above: 1 Occurrences starting 04/18/2024 until 04/18/2025 H&P for surgery H&P FOR SURGERY Procedures Routine Crohn's disease of both small and large intestine with complication (HCC) Ordered: 08/25/2022 [facility] Work Phone: Comment on above: Ordered: 08/25/2022 Hepb vaccine adult 3 dose schedule for im use HEP B VACCINE, 3-DOSE, AGE 20+ YR (ENGERIX-B, RECOMBIVAX HB) Immunization/Injection Routine Need for vaccination Ordered: 06/13/2022 [facility] Work Phone: Comment on above: Ordered: 06/13/2022 HIGH RISK HUMAN PAPILLOMA VIRUS (HPV), PCR FOR DETECTION AND GENOTYPING HIGH RISK HUMAN PAPILLOMA VIRUS (HPV), PCR FOR DETECTION AND GENOTYPING Lab Routine Encounter for Papanicolaou smear for cervical cancer screening Special screening examination for human papillomavirus (HPV) Long-term use of immunosuppressant medication 06/18/2024 3:58 PM EDT [facility] PAP TEST PAP TEST Lab Rou randy Encounter for Papanicolaou smear for cervical cancer screening Special screening examination for human papillomavirus (HPV) Long-term use of immunosuppressant medication 06/18/2024 3:58 PM EDT [facility] Work Phone: Patient Education [facility] Work Phone: Patient referral [facility] Work Phone: PPD (TB INTRADERMAL [id number]) B/O PPD (TB INTRADERMAL [id number]) B/O Procedures Routine Screening-pulmonary TB Ordered: 06/03/2022 [facility] Work Phone: Comment on above: Ordered: 06/03/2022 REFER FOR ADMIT INTERVIEW REFER FOR ADMIT INTERVIEW Procedures Routine Crohn's disease of both small and large intestine with complication (HCC) Ordered: 08/25/2022 [facility] Work Phone: Comment on above: Ordered: 08/25/2022 End: 02-18-2023 Screening colonoscopy COLONOSCOPY SCREENING Endoscopy Routine Crohn's disease of both small and large intestine with intestinal obstruction (HCC) 1 Occurrences starting 02/18/2022 until 02/18/2023 [facility] Work Phone: Comment on above: 1 Occurrences starting 02/18/2022 until 02/18/2023 End: 06-29-2023 Us soft tissue head & neck real time imge docm US THYROID/PARATHYROID Radiology Routine Thyromegaly 1 Occurrences starting 05/30/2022 until 06/29/2023 [facility] Work Phone: Comment on above: 1 Occurrences starting 05/30/2022 until 06/29/2023 [facility] Immunizations Immunization Date Immunization Notes Care Provider Mariana taveras 12-12-2022 hepatitis B vaccine, adult dosage Mi Nurse Work Phone: [facility] Work Phone: 11-14-2022 influenza, injectabl e, quadrivalent, preservative free Roque Pope MD Work Phone: [facility] 11-14-2022 influenza virus vacc ine, unspecified formulation Karla Noriega PA-C Work Phone: [facility] 06-29-2022 hepatitis B vaccine, adult dosage Mi Nurse Work Phone: [facility] Work Phone: 06-08-2022 tuberculin skin test ; purified protein derivative solution, intradermal Nurse Wstr Work Phone: [facility] 05-30-2022 hepatitis B vaccine, adult dosage SRINIVAS Parkinson PA-C Work Phone: [facility] 05-30-2022 tuberculin skin test ; purified protein derivative solution, intradermal Nurse Wstr Work Phone: [facility] 11-22-2021 influenza, injectabl e, quadrivalent, contains preservative Randy Bojorquez APRN.CNP Work Phone: [facility] 11-22-2021 influenza, injectabl e, quadrivalent, preservative free [facility] 11-22-2021 influenza, seasonal, injectable Dr. Roque Pope Work Phone: [facility] 11-22-2021 influenza virus vacc ine, unspecified formulation Winnie Richards PA-C Work Phone: [facility] 11-16-2020 Covid (Pfizer) Dr. Roque hunt Work Phone: [facility] 10-21-2020 Covid (Pfizer) Dr. Roque hunt Work Phone: [facility] 12-12-2019 influenza, injectabl e, quadrivalent, contains preservative Tad Morton MD Work Phone: [facility] 02-01-2018 tetanus toxoid, redu marley diphtheria toxoid, and acellular pertussis vaccine, adsorbed Dr. Roque Pope Work Phone: [facility] 01-27-2018 tetanus toxoid, redu marley diphtheria toxoid, and acellular pertussis vaccine, adsorbed Tad Morton MD Work Phone: [facility] Work Phone: 12-06-[address] Roque Pope Work Phone: [facility] 12-06-2017 influenza, seasonal, injectable, preservative free Tad Morton MD Work Phone: [facility] 10-28-2016 influenza, seasonal, injectable, preservative free Tad Morton MD Work Phone: [facility] 03-15-2016 influenza, injectabl e, quadrivalent, preservative free Tad Morton MD Work Phone: [facility] 09-17-2008 varicella virus vaccine Tx N brodye Work Phone: [facility] 01-03-2008 influenza virus vacc ine, whole virus Tx Nurse Work Phone: [facility] 05-15-2007 human papilloma viru s vaccine, quadrivalent Tx Nurse Work Phone: [facility] 01-12-2007 influenza virus vacc ine, whole virus Tx Nurse Work Phone: [facility] 01-10-2007 human papilloma viru s vaccine, quadrivalent Tx Nurse Work Phone: [facility] 11-09-2006 human papilloma viru s vaccine, quadrivalent Tx Nurse Work Phone: [facility] 11-09-2006 meningococcal polysaccharide (groups A, C, Y and W-135) diphtheria toxoid conjugate vaccine (MCV4P) Tx Nurse Work Phone: [facility] 02-24-2004 hepatitis B vaccine, pediatric or pediatric/adolescent dosage Mi Nurse Work Phone: [facility] 02-24-2004 measles, mumps and rubella virus vaccine Mi Nurse Work Phone: [facility] 12-27-2003 influenza virus vacc ine, whole virus Mi Nurse Work Phone: [facility] 08-05-2003 measles, mumps and rubella virus vaccine Mi Nurse Work Phone: [facility] 08-05-2003 varicella virus vaccine Mi N urse Work Phone: [facility] 06-04-2003 hepatitis B vaccine, pediatric or pediatric/adolescent dosage Mi Nurse Work Phone: [facility] 06-18-2002 diphtheria, tetanus toxoids and acellular pertussis vaccine, unspecified formulation Mi Nurse Work Phone: [facility] 08-04-1997 diphtheria, tetanus toxoids and acellular pertussis vaccine, unspecified formulation Mi Nurse Work Phone: [facility] 07-05-1996 diphtheria, tetanus toxoids and acellular pertussis vaccine, unspecified formulation Mi Nurse Work Phone: [facility] 07-05-1996 poliovirus vaccine, unspecified formulation Mi Nurse Work Phone: [facility] 03-14-1995 diphtheria, tetanus toxoids and acellular pertussis vaccine, unspecified formulation Mi Nurse Work Phone: [facility] 03-14-1995 poliovirus vaccine, unspecified formulation Mi Nurse Work Phone: [facility] 01-09-1995 diphtheria, tetanus toxoids and acellular pertussis vaccine, unspecified formulation Mi Nurse Work Phone: [facility] 01-09-1995 poliovirus vaccine, unspecified formulation Mi Nurse Work Phone: [facility] 11-03-1994 diphtheria, tetanus toxoids and acellular pertussis vaccine, unspecified formulation Mi Nurse Work Phone: [facility] 11-03-1994 haemophilus influenz ae type b vaccine, conjugate unspecified formulation Mi Nurse Work Phone: [facility] 11-03-1994 poliovirus vaccine, unspecified formulation Tx Nurse Work Phone: [facility] Payers Date Payer Category Payer Self-pay [id number] 2024 Unknown [id number] 2023 Private Health Insurance [id number] 2023 Unknown [id number] 2023 Unknown [id number] [address] [facility] MEDICAID [id number] 2018-Present [phone] [address] [place] [address] Medicaid [id number] 2018 Medicaid [id number] 2017 Unknown 2015 Unknown [id number] 1991 Unknown [id number] 2.840.1.248050.3.579.2. 356 1991 Unknown [id number] 2.0.1.749708.3.579.2. 356 1991 Unknown [id number] 2.0.1.254411.3.579.2. 356 1991 Unknown [id number] 2.0.1.952954.3.579.2. 356 1991 Unknown [id number] 2.840.1.333443.3.579.2. 356 1991 Unknown [id number] 2.840.1.078423.3.579.2. 356 1991 Unknown [id number] 2.16.840.1.572057.3.579.2. 356 1991 Unknown [id number] 2.16.840.1.002204.3.579.2. 1991 Unknown [id number] 2.16.840.1.459070.3.579.2. 1991 Unknown [id number] 2.16.840.1.202334.3.579.2. 1991 Unknown [id number] 2.16.840.1.174861.3.579.2. 1991 Unknown [id number] 2.16.840.1.909320.3.579.2. 1991 Unknown [id number] 2.16.840.1.052746.3.579.2. 1991 Unknown [id number] 2.16.840.1.154399.3.579.2. 1991 Unknown [id number] 2.16.840.1.255201.3.579.2. 1991 Unknown [id number] 2.16.840.1.345455.3.579.2. 1991 Unknown [id number] 2.16.840.1.472076.3.579.2. 1991 Unknown [id number] 2.16.840.1.465479.3.579.2. 1991 Unknown [id number] 2.16.840.1.565872.3.579.2. 1991 Unknown [id number] 2.16.840.1.326744.3.579.2. 1991 Unknown [id number] 2.16.840.1.116777.3.579.2. 1959 Medicaid [id number] Unknown [facility] [id number] Unknown [id number] [id number]. 462 Social History Date Type Detail Facility Start: 11-20-2020 End: 10-25-2021 Tobacco smoking status NHIS Occasional tobacco smoker [facility] Start: 11-20-2020 End: 10-17-2023 Tobacco use and exposure Smokeless tobacco non-user [facility] Start: 12-12-2019 End: 04-15-2021 Alcohol intake Ex-drinker (finding) [facility] Start: 07-19-2018 End: 10-25-2021 Tobacco Comment using e cigarrette. [facility] Start: 1991 Sex Assigned At Not on file C [facility] Start: 11-12-2019 End: 01-03-2022 Exposure to SARS-CoV-2 (event) Not sure [facility] Work Phone: Start: 12-15-2021 End: 10-17-2023 Tobacco smoking status NHIS Ex-smoker [facility] End: 02-27-2018 History of tobacco use Current smoker [facility] End: 02-27-2018 History of tobacco use Cigarette Smoker [facility] Start: 02-04-2022 End: 05-19-2023 Tobacco smoking status NHIS Unknown if ever smoked [facility] Start: 03-29-2018 None [facility] Start: 1990 Sex Assigned At Female W [facility] Start: 06-29-2022 End: 08-11-2022 History of Social function [facility] Work Phone: Start: 06-29-2022 End: 08-11-2022 Tobacco use panel [facility] Work Phone: Adult Depression Screening Assessment 0 [facility] Work Phone: Start: 12-15-2022 End: 06-18-2024 Alcohol intake Current drinker of alcohol (finding) [facility] Center Start: 12-15-2022 Alcohol Comment occasional [facility] Start: 08-09-2024 Tobacco smoking status NHIS Smokes tobacco daily (finding) [facility] NEGATED: Highlighted row [facility] Goals Date Patient Goal Desired Activity /State Functional Status Date Assessment Result Facility 09-18-2022 Are you deaf, or do you have serious difficulty hearing No 09/18/2022 2:41 PM EDT Joselyn Puckett, [place].[facility] Work Phone: 09-18-2022 Are you blind, or do you have serious difficulty seeing, even when wearing glasses No 09/18/2022 2:41 PM EDT Joselyn Puckett, [place].[facility] 09-18-2022 Do you have serious difficulty walking or climbing stairs No 09/18/2022 2:41 PM EDT Joselyn Puckett, [place].[facility] 09-18-2022 Do you have difficul ty dressing or bathing No 09/18/2022 2:41 PM EDT Joselyn Puckett, CUT OFF TENDER GLASS.[facility] 09-18-2022 Because of a physica l, mental, or emotional condition, do you have difficulty doing errands alone such as visiting a physician's office or shopping No 09/18/2022 2:41 PM EDT Joselyn Puckett, [place].[facility] No [facility] 02-06-2022 Functional status Bedrest [facility] Work Phone: Mental Status Date Assessment Result Facility 09-18-2022 Because of a physica l, mental, or emotional condition, do you have serious difficulty concentrating, remembering, or making decisions No 09/18/2022 2:41 PM EDT Joselyn Puckett, CUT OFF TENDER GLASS.[facility] 09-05-2022 Cognitive function Level Of Cons ciousness Awake;Alert;Appropriate;Fol lows Commands [facility] Work Phone: 07-12-2022 Cognitive function Level Of Cons ciousness Awake;Alert;Appropriate [facility] Work Phone: 02-06-2022 Cognitive function Voice/Name [facility] Work Phone: Clinical Notes 12-12-2019 to 09-13-2024 Telephone Encounter - Ford Brower LPN - 09/13/2024 2:31 PM EDTTelephone Encounter - Ford Brower LPN - 09/13/2024 2:31 PM EDTTelephone Encounter - Ford Brower LPN - 09/13/2024 11:22 AM EDT Note Date & Type Note Facility 09-13-2024 Telephone encount er Note Patient notified that can cone picker in medical records starting tomorrow. [facility] 09-13-2024 Miscellaneous Notes Formattin g of this note might be different from the original. Patient notified that can cone picker in medical records starting tomorrow. On provider desk for review. Patient dropped off forms to be filled out by provider. Forms placed on nurses desk. Please contact patient when ready.Thank you documented in this encounter [facility] 09-13-2024 Telephone encount er Note On provider desk for review. [facility] 09-13-2024 Telephone encount er Note Patient dropped off forms to be filled out by provider. Forms placed on nurses desk. Please contact patient when ready.Thank you [facility] 09-05-2024 Miscellaneous Notes Addended by: KANDICE AGUIRRE RN on: 09/05/2024 01:45 PM Modules accepted: Orders Noted. Pt needs to reach out to [facility] to obtain refill Kandice Aguirre RN Ldr Rn, IBD Patient calling to let Sonia know that her [employer] Insurance is still active for Skyrizi approval. [phone] documented in this encounter [facility] 09-05-2024 Note Addended by: KANDICE AGUIRRE RN on: 09/05/2024 01:45 PM Modules accepted: Orders [facility] 09-05-2024 Telephone encount er Note Noted. Pt needs to reach out to [facility] to obtain refill Kandice Aguirre RN Ldr Rn, IBD [facility] 09-05-2024 Telephone encount er Note Patient calling to let Sonia know that her [employer] is still active for Skyrizi approval. [phone] [facility] Work Phone: 09-05-2024 Telephone encount er Note Returned pts call, identified by name and . All questions answered. Pt has no further questions at this time Kadnice Aguirre RN Ldr Rn, IBD [facility] 09-05-2024 Miscellaneous Notes Formattin g of this note might be different from the original. Returned pts call, identified by name and . All questions answered. Pt has no further questions at this time Kandice Aguirer RN Ldr Rn, IBD The pt phone in today stating the marieli was sent to the the wrong Insurance company([employer]) she states she has [facility] plan Angella Bojorquez documented in this encounter [facility] 09-05-2024 Telephone encount er Note The pt phone in today stating the sklavelleizi was sent to the the wrong Insurance company([employer]) she states she has [employer] Off [employer] plan Angella Bojorquez [facility] 08-26-2024 Telephone encount er Note PA for Skyrizi OBI approved by [facility] PA# [id number] Approval dates 08/23/2024- 08/22/2025 Will send approval letter to scanning and notify pt of approval via Quu message Kandice Aguirre RN Ldr Rn, IBD [facility] 08-26-2024 Miscellaneous Notes Formattin g of this note might be different from the original. PA for Skyrizi OBI approved by [facility] PA# [id number] Approval dates 08/23/2024- 08/22/2025 Will send approval letter to scanning and notify pt of approval via Quu message Kandice Aguirre RN Ldr Rn, IBD documented in this encounter [facility] 08-23-2024 Telephone encount er Note Called and spoke to pt regarding her colonoscopy and that it is mandatory she have someone with her to drive her from the procedure. Pt states she has a friend to come with her; but does not drive. This nurse suggested pt call the endoscopy department to determine if this is permitted as she can not answer this. Also advised pt her PA for her Skyrizi has been faxed in. Janet Vera RN August 23, 2024 3:35 PM [facility] 08-23-2024 Miscellaneous Notes Formattin g of this note might be different from the original. Called and spoke to pt regarding her colonoscopy and that it is mandatory she have someone with her to drive her from the procedure. Pt states she has a friend to come with her; but does not drive. This nurse suggested pt call the endoscopy department to determine if this is permitted as she can not answer this. Also advised pt her PA for her Skyrizi has been faxed in. Janet Vera RN August 23, 2024 3:35 PM Patient contacted the office to update her insurance information. Connected to the Contact Center to update in the system. She has questions regarding colonoscopy and expedited Skyrizi medication once new PA is complete. [phone] documented in this encounter [facility] 08-22-2024 Telephone encount er Note Patient contacted the office to update her insurance information. Connected to the Contact Center to update in the system. She has questions regarding colonoscopy and expedited Skyrizi medication once new PA is complete. [phone] [facility] Work Phone: 08-09-2024 Discharge summary [facility] 08-09-2024 Discharge summary Note Date/Time August 09, 2024 10:17pm [facility] Medical Records Department [address] [place] [address] Emergency Department Summary 08/09/24 MR#: [id number] Acct: [id number] Name: ALY SOLORIO Rep #:[id number] : 1990 34 From: Massimo Quinonez MD PCP: Dr. Roque Pope MD Status:REG E R Location: ED HPI History of Present Illness Chief Complaint: Bite Informant: patient Narrative Narrative: 34-year-old female presents for what she thinks may be a spider bite that occurred 3 or so hours prior to arrival. She states she started to feel some itching all of a sudden while she was sitting outside on her right forearm, looked down and noticed a couple of small bite iraheta. Then she noticed some itching on her right elbow. Then she started having numbness in the area of these, that started traveling up her upper arm, now it is close to her shoulder as far as the numbness. She is not having significant pain. She denies any systemic symptoms. She agrees that nothing looks bad she is here because of more the way that it feels in her arm. She did not see an insect or spider. She was sitting on her porch at the time. She did not see any large animal suchas a bat or anything like that around her. She was with somebody else who also did not see anything like that, according to the patient. ROS ROS ED Constitutional Constitutional ED: Denies chills or fever(s) Eyes Eyes: Denies change in vision Cardiovascular Cardiovascular: Denies chest pain Respiratory/Chest Respiratory/Chest: Denies dyspnea Gastrointestinal Gastrointestinal: Denies nausea Musculoskeletal Musculoskeletal: Denies back pain, extremity pain, joint pain or neck pain Integumentary Reports as per HPI Neurologic Neurologic: Reports paresthesias [facility] Medical History (Updated 08/09/24 @ 22:[address] Massimo Quinonez MD) Crohn's disease Home Medications ?Medication ?Instructions ?Recorded ?Last Taken ?Type adalimumab 40 mg/0.8 mL 40 mg SQ Q14D crohns 7 01/28/22 History subcutaneous syringe kit (Humira) venlafaxine 75 mg capsule,extended 75 mg PO DAILY mood 02/05/22 02/04/22 History release 24 hr lidocaine 5 % topical patch 1 patch topical DAILY #15 ea 07/12/22 Unknown Rx (Lidoderm) naproxen 500 mg tablet (Naprosyn) 500 mg PO BID PRN pa in #20 tabs 07/12/22 Unknown Rx omeprazole 40 mg capsule,delayed 40 mg PO DAILY #30 ca ps 07/13/22 Unknown Rx release sucralfate 100 mg/mL oral 10 ml PO BID PRN Epigastric pain 07/13/22 Unknown Rx suspension (Carafate) #200 mL oxycodone-acetaminophen 5 mg-325 1 tab PO Q6H PRN pain 3 days #12 08/29/22 Unknown Rx mg tablet (Percocet) tabs prednisone 50 mg tablet 50 mg PO DAILY #5 tabs 08/29 Unknown Rx cyclobenzaprine 10 mg tablet 10 mg PO TID PRN Muscle S pasm #20 05/19/23 Unknown Rx TABLETS hydrocodone-acetaminophen 5-325mg 1 tab PO Q4H PRN PRN Pain 2 days 05/19/23 Unknown Rx 5mg-325mg #10 TABLETS naproxen 500 mg tablet (Naprosyn) 500 mg PO BID PRN pa in #20 tabs 05/19/23 Unkno wn Rx Allergy/AdvReac Type Severity Reaction Status Date / Time No Known Allergies Allergy Verified 08/09/24 21:15 Family History no significant family his Surgical History History of section History of bowel resection Social History Smoking Status: Current every day smoker tobacco type: e-cigarettes EXAM Physical Exam Const Vital Signs: 08/09/24 21:15 Temperature 96.5 F L Temperature Source Temporal Pulse Rate 85 Respiratory Rate 16 Blood Pressure 129/79 H Blood Pressure Mean 95 Pulse Ox 100 Oxygen Delivery Method Room Air Positive well nourished and well developed General Appearance ED: well developed and NAD Neck full ROM Neck Narrative: supple Resp normal respiratory effort Extremity normal to inspection and full ROM Extremity Narrative: there are 2 small nontender erythematous bumps consistent with possible mosquito bites in the right olecranon area/elbow. Painless full range of motionof the joint. All compartments of the upper arm and forearm are soft and nondistended and nontender. There is no paresthesias in the hand or reproducible paresthesias with range of motion of the elbow or the wrist. No bony tenderness anywhere. There is also a very small nonraised erythematous area over a nevus on the dorsal right forearm that is nontender and without any lymphangitis anywhere. No epitrochlear lymphadenopathy. Neuro oriented x3 and CN's II-XII intact bilaterally Neuro Narrative: No gross sensory deficits. Subjective decrease sensation right upper arm. Median, radial, ulnar nerve sensory and motor function intact in the hand, including PIN and AIN branches. Psych mental status grossly normal and thought process normal Skin skin turgor normal Skin Narrative: See above. Couple of small bumps on the right elbow and forearm only consistentwith insect bites. There is no surrounding blanching or necrosis or lymphangitis or any other lesions or rashes on the right upper extremity. MDM MDM MDM Narrative Medical decision making narrative: As I discussed with the patient, sitting or at rest and receiving a bite is morelikely to be an insect, but if it was a spider it is probably a nonpoisonous spider bite. None of this is consistent with a black or brown recluse bite. I advised patient that it is likely that her symptoms will resolve without treatment. I do not see anything to treat her anything to test for her right here. Certainly nothing that looks infected. If anything gets worse we discussed signs and symptoms of infection, compartment syndrome, and what [place] spider bites look like, to return to the ER she is comfortable with thatplan. She understands this is a clinical diagnosis. Discharge Plan Triage Chief Complaint: Bite ED Provider: Massimo Quinonez Dx/Rx/DC Orders Clinical Impression: Insect sting Instructions: ED Nonpoisonous Spider Bite Prescriptions: No Action Humira 40 MG/0.8 ML syringe kit 40 mg SQ Q14D Patient Comments: CHRONS venlafaxine 75 mg capsule,extended release 24hr 75 mg PO DAILY Patient Comments: TAKE 1 CAPSULE BY MOUTH ONCE DAILY naproxen [Naprosyn] 500 mg tablet 500 mg PO BID PRN (Reason: pain) Qty: 20 0RF lidocaine [Lidoderm] 5 % adhesive patch,medicated 1 patch topical DAILY Qty: 15 0RF Rx Instructions: leave on most painful area for up to 12 hrs omeprazole 40 mg capsule,delayed release(DR/EC) 40 mg PO DAILY Qty: 30 0RF sucralfate [Carafate] 100 mg/mL suspension 10 ml PO BID PRN (Reason: Epigastric pain) Qty: 200 0RF prednisone 50 mg tablet 50 mg PO DAILY Qty: 5 0RF oxycodone-acetaminophen [Percocet] 5-325 mg tablet 1 tab PO Q6H PRN (Reason: pain) 3 Days Qty: 12 0RF cyclobenzaprine [cyclobenzaprine] 10 mg tablet 10 mg PO TID PRN (Reason: Muscle Spasm) Qty: 20 0RF hydrocodone-acetaminophen [hydrocodone-acetaminophen] 5-325 mg tablet 1 tab PO Q4H PRN PRN (Reason: Pain) 2 Days Qty: 10 0RF naproxen [Naprosyn] 500 mg tablet 500 mg PO BID PRN (Reason: pain) Qty: 20 0RF Primary Care Provider: Roque Pope Referrals: Roque Pope MD [Primary Care Provider] - 3-5 Days if not improving (or ER if worse/red streaks/fevers) Print Language: German Disposition Disposition: Home, Self Care What to do if you have Problems For any increased pain, shortness of breath, bleeding, nausea or vomiting, chestpain, or any unexpected problems, contact your Primary Care Provider. Call [facility] ([phone]) or report to the closest Emergency Room. Call 911 if necessary. 08/09/242216 <Electronically signed by Massimo Quinonez MD> Cosigner Signature (if applicable): CC: Dr. Roque Pope MD ~ Signed [facility] Work Phone: [phone] Telephone encounter Note* Telephone Encounter - Kamila Vila MA - 06/25/2024 4:47 PM EDT Patient informed ready for pickup. Taken to medical records. Kamila Vila MA [facility]04-29-2025 Miscellaneous Notes* Telephone Encounter - Kamila Vila MA - 06/25/2024 4:47 PM EDT Patient informed ready for pickup. Taken to medical records. Kamila Vila MA * Telephone Encounter - Estephanie Martinez MA - 06/18/2024 3:55 PM EDT Type of form: School Application: [facility] Form received via fax When form is completed, call patient Form has been forwarded to Physician Desk: Dr. Niko Martinez MA documented in [facility] Telephone encounter Note * Telephone Encounter - Estephanie Martinez MA - 06/18/2024 3:55 PM EDT Type of form: School Application: [facility] Form received via fax When form is completed, call patient Form has been forwarded to Physician Desk: Dr. Niko Martinez MA [facility]04-22-2025 Instructions* Patient Instructions* Rakel Love APRN.[facility] - 06/18/2024 3:37 PM EDT Calcium and Vitamin D Supplementation (from the National Institutes of Health Office of Dietary Supplements 2011) Calcium 1200 mg daily - 600 mg twice a day if taking supplement and Vit D 800- 1000 IU daily Calcium is required by the [...] history of osteoporosis, are thin, or , orwho take certain medications such as cancer chemotherapy, [...] calcium and are the major food contributors inthe [place]. For example, 8oz of milk (whole, lowfat or skim) contains about 300mg calcium, 8oz of yogurt contains 415mg. Nondairy sources include salmon and sardines and vegetables, such as Slovenian cabbage, kale, and broccoli. Foods fortified with calcium include many fruit juices, tofu and cereals. For more food calcium content information, visit http://ods.od.nih.gov/factsheets/calcium. Calcium supplements come in several different forms. [...] acid, calcium carbonate is found in some uqrg-teg-hnnhjzx antacid products, such as Tums and Rolaids . Depending on its strength, each chewable pill or softchew provides 200 to 400 mg of elemental calcium. The percentage of calcium absorbed depends on the total amount of elemental calcium consumed at onetime. Absorption is highest in doses <500mg. So [...] and maintains adequate blood levels of calcium andphosphate for normal bone growth and bone remodeling. [...] content, and sunscreen are among the factors thataffect UV radiation exposure and vitamin D synthesis. Despite the importance of the sun for vitaminD synthesis, it is prudent to limit exposure [...] available in two forms, D2 (ergocalciferol) and D3(cholecalciferol). The two are equivalent at normal supplement [...] prescribed by your doctor. documented in [facility]-2025 NoteHNO ID: [id number] Author: RAKEL LOVE APRN.CNP Service: ? Author [...] status: current everyday user Substances: Nicotine Devices: Ecoviate tank Substance Use Topics Alcohol use: Yes [...] discussed with the Patient or Patient's Authorized Blood Donor Unit Assistant. As applicable, any other physician, advance practice provider, medical student, or other health professional student that will be observing or involved in the sensitive examination for educational or training purposes was discussed with the Patient or Authorized Blood Donor Unit Assistant. The Patient or Authorized Blood Donor Unit Assistant has agreed to proceed with the sensitive [...] external genitalia normal, normal Bartholin's glands, urethra, [place]'s glands, no vulvar lesions, no cervical lesions, [...] year or sooner as needed Rakel Love APRN.[facility]04-22-2025 History of Present illness Narrative* Rakel Love APRN.[facility] - 06/18/2024 3:00 PM EDT Aly is a 33 year old who [...] discussed with the Patient or Patient's Authorized Blood Donor Unit Assistant. As applicable, any other physician, advance practice provider, medical student, or other health professional student that will be observing or involved in the sensitive examination for educational or training purposes was discussed with the Patient or Authorized Blood Donor Unit Assistant. The Patient or Authorized Blood Donor Unit Assistant has agreed to proceed with the sensitive [...] external genitalia normal, normal Bartholin's glands, urethra, [place]'s glands, no vulvar lesions, no cervical lesions, [...] Provera. Contraceptive options reviewed and information provided. Encouragedcalcium/vitamin D/weightbearing exercise/smoking cessation. 3) STD screening: Accepted STD check for Gonorrhea and Chlamydia. 4) Follow up one year or sooner as needed Rakel Love APRN.[employer] DESIGNER documented in this encounterOhio [facility]03-27-2025 NoteHNO ID: [id number] Author: FORD GUTIERREZ RN Service: ? Author Type: Registered Nurse Type: Progress Notes Filed: 05/23/2024 16:06 Note Text: Patient identified by name and date of . Aly Solorio is here for a Depo Provera injection. Patient brought medication. Date last injected: 02/27/2024 Depo-Provera, 150 mg, administered IM right upper quadrant gluteus, Lot # [id number], expiration date 07/27/2025. Depo-Provera was given without incident. Date of last menses: Patient's last menstrual period was 04/04/2023 (approximate). Irregular bleeding - No Menses ceased - Yes Patient instructed to return to clinic in 12 weeks. [email or web address] Provider NBA was present in office at time of injection. [facility] History of Present illness Narrative* Ford Gutierrez RN - 05/23/2024 3:59 PM EDT Patient identified by name and date of . Aly Ray Lyndsey is here for a Depo Provera injection. Patient brought medication. Date last injected: 02/27/2024 Depo-Provera, 150 mg, administered IM right upper quadrant gluteus, Lot # [id number], expiration date 07/27/2025. Depo-Provera was given without incident. Date of last menses: Patient's last menstrual period was 04/04/2023 (approximate). Irregular bleeding - No Menses ceased - Yes Patient instructed to return to clinic in 12 weeks. [email or web address] Provider NBA was present in office at time of injection. Ford Gutierrez RN documented in this encounterOhio [facility]03-24-2025 NoteHNO ID: [id number] Author: ROQUE POPE MD Service: ? Author [...] status: current everyday user Substances: Nicotine Devices: Ecoviate tank Substance Use Topics Alcohol use: Yes [...] ICD10: Z13.31 - DEPRESSION SCREENING Roque Pope [facility]03-24-2025 History of Present illness Narrative* Roque Pope MD - 05/20/2024 5:42 PM EDT Patient presents with: 6 Month Exam HPI: [...] status: current everyday user Substances: Nicotine Devices: RefJackedble tank Substance Use Topics Alcohol use: Yes Comment: occasional Drug use: Never Reviewed current medications, allergies, past medical history, surgical history, family history andsocial history today. REVIEW OF SYSTEMS All other [...] SCREENING Roque Pope MD documented in this encounterOhio [facility]-2025 Telephone encounter Note * Telephone Encounter - Kamila Long RN - 05/20/2024 2:12 PM EDT Refill request received via MyChart for patients Depo Provera Rx. Patient was supposed to have injection today, but rescheduled for . Patient last seen for annual exam on 04/24/23. PSS: Please contact patient to schedule annual exam. Kamila Long RN [facility]03-24-2025 Miscellaneous Notes* Telephone Encounter - Kamila Long RN - 05/20/2024 2:12 PM EDT Refill request received via [facility] for patients Depo Provera Rx. Patient was supposed to have injection today, but rescheduled for . Patient last seen for annual exam on 04/24/23. PSS: Please contact patient to schedule annual exam. Kamila Long RN documented in this encounterOhio [facility]03-05-2025 Telephone encounter Note * Telephone Encounter - India Langston RN - 05/01/2024 9:29 AM EST Patient's request for medication is as follows: Requested Prescriptions Pending Prescriptions Disp Refills risankizumab-rzaa (SKYRIZI) 360 mg/2.4 mL (150 mg/mL) wearable injector 7.2 mL 0 Sig: Inject 360mg (1 device) subcutaneously every 8 weeks. Please approve the above prescription(s) to electronically send to pharmacy. [facility]03-05-2025 Miscellaneous Notes* Telephone Encounter - India Langston RN - 05/01/2024 9:29 AM EST Patient's request for medication is as follows: Requested Prescriptions Pending Prescriptions Disp Refills risankizumab-rzaa (SKYRIZI) 360 mg/2.4 mL (150 mg/mL) wearable injector 7.2 mL 0 Sig: Inject 360mg (1 device) subcutaneously every 8 weeks. Please approve the above prescription(s) to electronically send to pharmacy. documented in this encounterOhio [facility]02-20-2025 Instructions* Patient Instructions* Karla Noriega PA-C - 04/18/2024 3:07 PM [...] (i.e. drive a car, bicycle, etc) or [facility]. It is not safe [...] with insulin, diabetic pills, or other injectable medicationsdo not take your REGULAR dose after midnight on the day of your procedure. If you are taking any other types of insulin such as Lantus, Humalog, NPH (long- acting insulin), or70/30 insulin, take half your normal dose the [...] medications (including aspirin, antibiotics, water pills / diureticslike Lasix or Metolozone, blood pressure meds, etc.) [...] prep in two doses. Split dosing helps cleanyour colon better and makes it less likely that your procedure will be canceled. You will need to purchase the following (no prescriptions are needed): 64 ounces Gatorade, Propel, Crystal Lite or other noncarbonated clear liquid sports drink (NOT red,orange, or purple). Diabetic patients buy sugar-free, e.g. [...] am on dialysis? A: Please consult your block cuber prior to scheduling to get instructions pertinent to you. In general, dialysis patients take the [employer] bowel prep and have the procedure same [...] to inadequate prep quality. documented in this encounterOhio State University [facility]02-20-2025 NoteHNO ID: [id number] Author: KARLA NORIEGA PA-C Service: ? Author Type: Physician Spray Technician Type: Progress Notes Filed: 04/18/2024 15:28 Note Text: Virtual Follow Up Visit Provider Location: [facility] Patient Location: Patient Home or Place of Residence SUBJECTIVE Aly Solorio [id number] 1990 has requested a video telemedicine for [...] COVID-19 original vaccine, age 12+ yr, monovalent (Polar OLED-[employer] - PURPLE TOP) 10/21/2020 11/16/2020 Haemophilus influenzae [...] no nose bleeds or (more content not included)...[facility]02-20-2025 History of Present illness Narrative* Karla Noriega PA-C - 04/18/2024 3:01 PM EST Virtual Follow Up Visit Provider Location: [facility] Patient Location: Patient Home or Place of Residence SUBJECTIVE Aly Solorio [id number] 1990 has requested a video telemedicine for [...] 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 SKIN:Negative for lesions, rash, and itching PSYCHIATRIC: Negative for sleep disturbance, mood disorder and recent psychosocial stressors. HEMATOLOGIC/LYMPHATIC/IMMUNOLOGIC:Negative for prolonged bleeding, bruising easily or swollen [...] Last Endoscopy: Colonoscopy 08/11/2022 Impression: - Patent [id number] ileo-colonic anastomosis, characterized by healthy appearing mucosa. [...] disease with stricture and on 09/16/2022 she underwenta laparoscopic redo ileocolic resection with Kono S [...] Stressed the need for every 6-month follow-up willplan for routine blood work fecal calprotectin and [...] with more than 50% of the total sncu-ex-lrys time of the visit in counseling / [...] licensure. The patient's identity and physical location wereverified at the time of this visit. Either the patient or their legal technical account representative has been informed of the risks and benefits of -- and alternatives to -- treatment through a remote evaluation andconsents to proceed with the evaluation remotely. Karla Noriega PA-C April 18, 2024 3:01 PM documented in this encounterOhio State University [facility]02-19-2025 Telephone encounter Note * Telephone Encounter - Ford Brower LPN - 04/17/2024 1:06 PM EST No show letter #1 [facility]02-19-2025 Miscellaneous Notes* Telephone Encounter - Ford Brower LPN - 04/17/2024 1:06 PM EST No show letter #1 documented in this encounterOhio State University [facility]02-12-2025 Telephone encounter Note * Telephone Encounter - Jovita Shelby MA - 04/10/2024 4:12 PM EST Finally spoke to patient and she is ok with rx 75 mg daily going to pharmacy. Please send Jovita Shelby MA [address]12-2025 Miscellaneous Notes* Telephone Encounter - Jovita Shelby MA - 04/10/2024 4:12 PM EST Finally spoke to patient and she is ok with rx 75 mg daily going to pharmacy. Please send Jovita Shelby MA * Telephone Encounter - Jovita Shelby MA - 04/06/2024 10:43 AM EST PA completed by nurse and denied insurance will not pay for BID. Tried to re- submit but denied due to 75 mg is available. Left message on for patient to call back. Please ask if ok with changing rx to 75 mg once daily so insurance will pay. If ok please route to provider to re-send pended rx. Jovita Shelby MA documented in this encounterOhio State University [facility]02-12-2025 Telephone encounter Note * Telephone Encounter - Ford Brower LPN - 04/10/2024 12:11 PM EST Rescheduled. [facility]02-12-2025 Miscellaneous Notes* Telephone Encounter - Ford Brower LPN - 04/10/2024 12:11 PM EST Rescheduled. * Telephone Encounter - Roque Pope MD - 04/10/2024 12:00 PM EST On schedule for me in am at [place]. Make sure is aware it is at that location. documented in this encounterOhio State University [facility]02-12-2025 Telephone encounter Note * Telephone Encounter - Roque Pope MD - 04/10/2024 12:00 PM EST On schedule for me in am at [place]. Make sure is aware it is at that location. [facility]02-08-2025 Telephone encounter Note* Telephone Encounter - Jovita Shelby MA - 04/06/2024 10:43 AM EST PA completed by nurse and denied insurance will not pay for BID. Tried to re- submit but denied due to 75 mg is available. Left message on for patient to call back. Please ask if ok with changing rx to 75 mg once daily so insurance will pay. If ok please route to provider to re-send pended rx. Jovita Shelby MA [facility]02-05-2025 Telephone encounter Note* Telephone Encounter - Ford Brower LPN - 04/03/2024 11:41 AM EST Prescription Refill Information The patient has been [...] Brower LPN April 03, 2024 11:41 AM [facility]02-05-2025 Miscellaneous Notes* Telephone Encounter - Ford Brower LPN - 04/03/2024 11:41 AM EST Prescription Refill Information The patient has been [...] 03, 2024 11:41 AM documented in this encounterOhio State University Wex[facility] Center12-31-2024 NoteHNO ID: [id number] Author: KAMILA LONG RN Service: ? Author Type: Registered Nurse Type: Progress Notes Filed: 02/29/2024 09:01 Note Text: Patient identified by name and date of . Aly Solorio is here for a Depo Provera injection. Patient brought medication. Date last injected: out of range - negative test Depo-Provera, 150 mg, administered IM left upper quadrant gluteus, Lot # [id number], expiration date 07/27/2025. Depo-Provera was given without incident. Date of last menses: Patient's last menstrual period was 04/04/2023 (approximate). Irregular bleeding - No Menses ceased - Yes STD prevention discussed: Yes Patient instructed to return to clinic in 12 weeks. [email or web address]-Provera%[email or web address].pdf Provider Henrietta Aguilera MD was present in office at time of injection. Kamila Long [facility]NS[facility]12-[facility] History of Present illness Narrative* Kamlia Long RN - 02/27/2024 2:01 PM EST Patient identified by name and date of . Aly Solorio is here for a Depo Provera injection. Patient brought medication. Date last injected: out of range - negative test Depo-Provera, 150 mg, administered IM left upper quadrant gluteus, Lot # [id number], expiration date 07/27/2025. Depo-Provera was given without incident. Date of last menses: Patient's last menstrual period was 04/04/2023 (approximate). Irregular bleeding - No Menses ceased - Yes STD prevention discussed: Yes Patient instructed to return to clinic in 12 weeks. [email or web address]-Provera%20dosing%20calendar.pdf Provider Henrietta Aguilera MD was present in office at time of injection. Kamila Long RN documented in this encounterOhio State University Wex[facility] Center12-20-2024 Telephone encounter Note * Telephone Encounter - Max Vora RP - 02/16/2024 9:50 AM EST Jamaal prior authorization has been approved; however, due to insurance restrictions Rx must be filled at [facility]. If refill request approved, [facility]. NOTE: Initial prior auth was completed by [employer] and expires on 08/15/2024. Future PA renewals will bethe responsibility of the provider's office. Requested Prescriptions Pending Prescriptions Disp Refills risankizumab-rzaa (SKYRIZI) 360 mg/2.4 mL (150 mg/mL) wearable injector 7.2 mL 0 Sig: Inject 360mg (1 device) subcutaneously every 8 weeks. Please review and advise. Max Vora RPh [facility]12-20-2024 Miscellaneous Notes* Telephone Encounter - Max Vora RP - 02/16/2024 9:50 AM EST Jamaal prior authorization has been approved; however, due to insurance restrictions Rx must be filled at [facility]. If refill request approved, [facility]. NOTE: Initial prior auth was completed by [employer] and expires on 08/15/2024. Future PA renewals will bethe responsibility of the provider's office. Requested Prescriptions Pending Prescriptions Disp Refills risankizumab-rzaa (SKYRIZI) 360 mg/2.4 mL (150 mg/mL) wearable injector 7.2 mL 0 Sig: Inject 360mg (1 device) subcutaneously every 8 weeks. Please review and advise. Max Vora RPh documented in this encounterOhio State University Wexner Medical Center12-19-2024 History of Present illness Narrative* Jazmin Baez - 02/15/2024 7:32 AM EST Benefits investigation was conducted, indicating that patient has new insurance, and a prior authorization is required for Skyrizi OBI. PA was initiated and pending review. Plan Name: [employer] Cover[employer]ymeds [place]: [id number] Jazmin Baez [facility] [phone] documented in this encounterOhio State University Wexner Medical Center12-19-2024 NoteHNO ID: [id number] Author: ?, ?, ? Service: ? Author Type: ? Type: Progress Notes Filed: 02/15/2024 07:34 Note Text: Benefits investigation was conducted, indicating that patient has new insurance, and a prior authorization is required for Skyrizi OBI. PA was initiated and pending review. Plan Name: [employer] CoverMymeds [place]: [id number] Jazmin Baez [facility] [phone] [facility]12-19-2024 NoteHNO ID: [id number] Author: ?, ?, ? Service: ? Author Type: ? Type: Progress Notes Filed: 02/16/2024 07:24 Note Text: Prior authorization was approved for Skyrizi OBI. Plan Name: [employer] PA reference number: [id number] Approval Dates: 02/15/24 - 08/15/24 However, s/he is required to use [facility] to fill this medication. Will queue prescription(s) to go to designated specialty pharmacy. For reference, their pharmacy phone number is [phone]. No further action by [facility]. Jazmin Baez [facility] [phone] [facility]10-21-2024 NoteHNO ID: [id number] Author: ?, ?, ? Service: ? Author [...] been reviewed prior to dispensing the medication. Capital Project Engineer Assessment Patient confirmed: Yes Med/dose confirmed: Yes Missed doses: No Estimated days supply on hand: 0 Next cycle/dose due: 12/28/23 Copay amount: 0 Payment confirmed: Yes Delivery method: FedEx Signature required: Waived on patient request Delivery address: [address] [place] [address] Delivery date: 12/27/23 Questions or concerns for [...] Visit Medication medroxyPROGESTERone 150 mg injection (DEPO-PROVERA) [facility] - INFLAMMATORY CONDITIONS [...] efficacy and/or no longer tolerated. Jazmin Baez [facility] [phone] [facility]09-25-2024 NoteHNO ID: [id number] Author: RANDY BOJORQUEZ APRN.EMBROIDERY DESIGNER Service: ? Author Type: Nurse Practitioner Type: Progress Notes Filed: 11/22/2023 17:56 Note Text: Subjective HPI HPI Ayl Solorio is a 33 year old female [...] - CEPHALEXIN 500 MG CAPSULE Randy Bojorquez APRN.[facility]09-25-2024 History of Present illness Narrative* Randy Bojorquez APRN.AR - 11/22/2023 5:41 PM EDT Images from the original note were not [...] status: current everyday user Substances: Nicotine Devices: Ecoviate tank Substance Use Topics Alcohol use: Yes [...] - CEPHALEXIN 500 MG CAPSULE Randy Bojorquez APRN.EMBROIDERY DESIGNER documented in this encounterOhio State University Wexner Medical Center09-03-2024 Instructions* Patient Instructions* Roque Pope MD - 10/31/2023 11:19 AM EDT [place] [facility] - Insurance Therapy/Counseling [facility] [address] [place] [address] [facility] [address] [place] [address] [employer] [address] [address] [facility] [address] [place] [address] [facility] [address] [place] [address] [employer] [facility] [address] [address] [employer] [address] [place], [place] [address] [address] [address] documented in this encounterOhio State University Wexner Medical Center09-03-2024 NoteHNO ID: [id number] Author: ROQUE POPE MD Service: ? Author [...] Gets stressed out easily. Not productive. Fatigued. [place] more down after stopping. No suicidal ideation. Has followed with gusset ripper. MEDICATIONS: Current Outpatient Medications Medication Sig risankizumab-rzaa [...] status: current everyday user Substances: Nicotine Devices: RefJackedble tank Substance Use Topics Alcohol use: Yes [...] exam, Abdomen s (more content not included)... [facility]09-03-2024 History of Present illness Narrative* Roque Pope MD - 10/31/2023 10:56 AM EDT Patient presents with: Wellness HPI: Patient presents [...] Gets stressed out easily. Not productive. Fatigued. [place] more down after stopping. No suicidal ideation. Has followed with gusset ripper. MEDICATIONS: Current Outpatient Medications Medication Sig risankizumab-rzaa [...] status: current everyday user Substances: Nicotine Devices: Ancestry Substance Use Topics Alcohol use: Yes Comment: occasional Drug use: Never Discussed tobacco cessation, including risks of continued use. Offered assistance to help quit if patient desires. Reviewed current medications, allergies, past medical history, surgical history, family history andsocial history today. REVIEW OF SYSTEMS GENERAL: No [...] Never done HIV Screening Never done Covid-19 Vaccine(3 - 2022- season) due on 10/29/2023 Influenza [...] patient. Advised them to call if any sideeffects or questions. - can probably write for [...] for recheck on meds. documented in this encounterOhio State University [facility]xner Medical Center08-22-2024 NoteHNO ID: [id number] Author: JOSELINE KEYS [facility] Service: ? Author Type: ? Type: Progress Notes Filed: 11/01/2023 08:32 Note Text: [facility] Refill Assessment Medication(s): Ahsanyrizi Patient's current medication list and adherence status [...] the medication. Pt overdue for office visit. Quiana SchmittD Clinical Pharmacist, [employer] [facility] ; Pool: P [facility] Pool #: [id number] Capital Project Engineer Assessment Med/dose confirmed: Yes Supplies needed: Alcohol swabs, Sharps container, Bandages Missed doses: Yes Count of missed doses: 1 Reason for missed doses: Forgot when next dose was due Estimated days supply on hand: 0 Next cycle/dose due: 10/31/23 Copay amount: 0 Payment confirmed: Yes Delivery method: FedEx Signature required: Waived on patient request Delivery address: [address] [place] [phone] Delivery date: 11/02/23 Questions or concerns for [...] Visit Medication medroxyPROGESTERone 150 mg injection (DEPO-PROVERA) [facility] RX SPECIALTY CLINICAL ASSESSMENT - INFLAMMATORY CONDITIONS [...] and/or no longer tolerated. Maria Luz Wolff [facility] P: [phone] F:[phone] County Hospital08-20-2024 NoteHNO ID: [id number] Author: FORD GUTIERREZ RN Service: ? Author Type: Registered Nurse Type: Progress Notes Filed: 10/17/2023 16:23 Note Text: Patient identified by name and date of . Aly Solorio is here for a Depo Provera injection. Patient brought medication. Date last injected: 07/25/2023 Depo-Provera, 150 mg, administered IM right upper quadrant gluteus, Lot # [id number], expiration date 07/27/2026. Depo-Provera was given without incident. Date of last menses: Patient's last menstrual period was 04/04/2023 (approximate). Irregular bleeding - No Menses ceased - Yes Patient instructed to return to clinic in 12 weeks. [email or web address]-Provera%20dosing%20calendar.pdf Provider KENNY was present in office at time of injection. Ford Gutierrez RNSuburban Community Hospital [facility]08-20-2024 History of Present illness Narrative* Ford Gutierrez RN - 10/17/2023 4:11 PM EDT Patient identified by name and date of . Aly Ray Lyndsey is here for a Depo Provera injection. Patient brought medication. Date last injected: 07/25/2023 Depo-Provera, 150 mg, administered IM right upper quadrant gluteus, Lot # [id number], expiration date 07/27/2026. Depo-Provera was given without incident. Date of last menses: Patient's last menstrual period was 04/04/2023 (approximate). Irregular bleeding - No Menses ceased - Yes Patient instructed to return to clinic in 12 weeks. [email or web address]/[email or web address]-Provera%20dosing%20calendar.pdf Provider KENNY was present in office at time of injection. Ford Gutierrez RN documented in this encounterOhio State University Wexner Medical Center07-24-2024 Telephone encounter Note * Telephone Encounter - Joseline Keys RPh - 09/20/2023 6:18 AM EDT Patient needs refill of Skyrizi Date of Aly Solorio's last Gastroenterology office visit: 10/17/22 Next appointment date: None Last labs: 08/24/22 Last TB test: TB Result Date Value Ref Range Status 08/24/2022 Negative Final Requested Prescriptions Pending Prescriptions Disp Refills risankizumab-rzaa (SKYRIZI) 360 mg/2.4 mL (150 mg/mL) wearable injector 7.2 mL 0 Sig: Inject 360mg (1 device) subcutaneously every 8 weeks. Patient prefers: [facility] Thank you! Joseline Keys PharmD Clinical Pharmacist, [employer] [facility] ; Pool: P [facility] Pool #: [id number] [facility]07-24-2024 Miscellaneous Notes* Telephone Encounter - Joseline Keys RPh - 09/20/2023 6:18 AM EDT Patient needs refill of Skyrizi Date of Aly Solorio's last Gastroenterology office visit: 10/17/22 Next appointment date: None Last labs: 08/24/22 Last TB test: TB Result Date Value Ref Range Status 08/24/2022 Negative Final Requested Prescriptions Pending Prescriptions Disp Refills risankizumab-rzaa (SKYRIZI) 360 mg/2.4 mL (150 mg/mL) wearable injector 7.2 mL 0 Sig: Inject 360mg (1 device) subcutaneously every 8 weeks. Patient prefers: [facility] Thank you! Joseline Keys PharmD Clinical Pharmacist, [employer] [facility] ; Pool: P [facility] Pool #: [id number] documented in this encounterOhio State University Wexner Medical Center06-26-2024 History of Present illness Narrative* Sasha JerryMobile ExperienceJazmin Lynne - 08/23/2023 10:23 AM EDT Benefits investigation was conducted, indicating that a re-authorization is required for Jamaal MCCLURE. PA was initiated and pending review. Plan Name: Janet Shoemaker Moreno: [id number] Jazmin Baez [facility] [phone] documented in this encounterOhio State University Wexner Medical Center06-26-2024 History of Present illness Narrative* Sasha JerryMobile ExperienceJazmin Lynne - 08/23/2023 10:15 AM EDT [facility] Refill Assessment Medication(s): Jamaal CALLAHANI Patient's current medication list and adherence status [...] progressing towards achieving therapeutic goals based on medication- specific laboratory parameters, disease state markers and outcomes. Joseline Keys, PharmD Clinical Pharmacist, [employer] [facility] ; Pool: P [facility] Pool #: [id number] Capital Project Engineer Assessment Patient confirmed: Yes Med/dose confirmed: Yes Missed doses: No Estimated days supply on hand: 0 Next cycle/dose due: 09/05/23 Copay amount: 0 Payment confirmed: Yes Delivery method: FedEx Signature required: Waived on patient request Delivery address: [address] [place] [address] Delivery date: 08/29/23 Questions or concerns for [...] Visit Medication medroxyPROGESTERone 150 mg injection (DEPO-PROVERA) [facility] Visit Assessment - [...] Assessment of efficacy: Yes Jazmin Baez CPhT [facility] [phone] documented in this encounterOhio State University Wexner [facility] Center05-28-2024 History of Present illness Narrative* Nelly Boothe RN - 07/25/2023 9:24 AM EDT Patient identified by name and date of . Aly Solorio is here for a Depo Provera injection. Patient brought medication. Date last injected: 04/26/23 Depo-Provera, 150 mg, administered IM left upper quadrant gluteus, Lot # [id number], expiration date 04/27/27. Depo-Provera was given without incident. Date of last menses: Patient's last menstrual period was 04/04/2023 (approximate). Irregular bleeding - No Menses ceased - Yes STD prevention discussed: Yes Patient instructed to return to clinic on 12 weeks. [email or web address]-Provera%20dosing%20calendar.pdf Provider Dr. East was present in office at time of injection. Nelly Boothe RN documented in this encounterOhio State University [facility] Center05-01-2024 History of Present illness Narrative* Rakel Love APRN.CNP - 06/28/2023 8:00 AM EDT No Show documented in this encounterOhio State University Wexner Medical Center04-30-2024 Instructions* Patient Instructions* Rakel Love APRN.AR - 06/27/2023 7:55 PM EDT Weight Management: [...] time you will have triumphs, setbacks and plateaus-your body will fight against you but we [...] weight loss it adds only a little be nefit for intermediate weight loss success. However, exercise can have many other benefits including improving mental health and cardiovascular health. Do not feel overwhelmed- we will discuss this moreat your visits. Our time will be limited with each visit but we will try to touch on factors that are important to you and to your overall goals. We will try to set a goal at the end of each visit and then decide onwhat we want to accomplish with your upcoming [...] factor. There are medications that work well forsome and not for others- so it may [...] process with you. Sincerely, Faina Price MD, DEX, RAUL & Rakel Love, EMBROIDERY DESIGNER Obesity Obesity is a disease that affects nearly one-third of the adult [place] population (approximately 60 million). The number of overweight and obese Americans has continued to increase since 1959, a trend that is not slowing down. Today, 64.5 percent of adult Americans (about 127 million) are categorized as being overweight or obese. Each year, obesity causes at least 300,000 excess deaths in the [place] and healthcare costs of [place] adults with obesity amount to approximately $100 [...] many calories while not getting enough exercise) andpsychological components. It is the second leading cause of preventable in the [place] Behavioral changes brought on by economic development, modernization and urbanization have been linked to therise in global obesity. Calculating BMI Body Mass [...] found to increase concurrently with higher BMI. Prematuredeath, a 20-year shorter life span, has also [...] the gallbladder, breast, uterus, cervix, or ovaries [email or web address]-[email or web address]-[email or web address] ducation Nutrition - Eat primarily whole foods. Limit carbs, especially processed carbs. - Do not drink your calories - 30 grams of protein for breakfast decreases your hunger during the day by up to 40 % Premier Protein or generic 30 gm protein 1 gm sugar - Walk for 15 minutes immediately a meal. documented in this encounterOhio State University [facility] Center03-06-2024 Miscellaneous Notes* Telephone Encounter - Max Vora, [facility] - 05/03/2023 1:16 PM EST Patient needs refill of Skyrizi onbody injector [...] device) subcutaneously every 8 weeks. Patient prefers: [facility] Max Vora, PharmD Clinical Pharmacist [facility] Pool: P [facility] Pool #: [id number] documented in this encounterOhio State University Wexner Medical Center02-28-2024 Instructions* Patient Instructions* Henrietta Wheat RN - 04/26/2023 9:59 AM [...] 14 weeks after your last shot. It maytake some women up to a year or [...] Regular doctor visits can be inconvenient. Copyright 2027-0552 The [facility]. All rights reserved This information is provided by the [facility] and is not intended to replace the medical advice of your doctor or health care provider. Please consult your health care provider for advice about a specific medical condition. For additional written health information, please contact the HealthInformation Center at the [facility] or toll-free extension [phone]. This document was last reviewed on: 2004 documented in this encounterOhio State University Wexner Medical Center02-28-2024 History of Present illness Narrative* Henrietta Wheat RN - 04/26/2023 9:43 AM EST Patient identified by name and date of . Aly Solorio is here for a Depo Provera injection. Patient brought medication. Date last injected: first injection - negative test. Depo-Provera, 150 mg, administered IM right upper quadrant gluteus, Lot # [id number], expiration date 05/27/2026. Depo-Provera was given without incident. Date of last menses: Patient's last menstrual period was 04/04/2023 (approximate). Patient instructed to return to clinic on 12 weeks +/- 5 days. [email or web address] Provider Nitza Rader MD was present in office at time of injection. Henrietta Wheat, RN documented in this encounterOhio State University [facility] Center02-19-2024 Instructions* Patient Instructions* Sydni Justin APRN.CNP - 04/17/2023 9:41 AM EST Tylenol Medrol dose pack Rest, ice, heat, stretches Follow up with PCP documented in this encounterOhio State University [facility] Center02-19-2024 History of Present illness Narrative* Sydni Justin APRN.CNP - 04/17/2023 8:43 AM EST Images from the original note were not included. Subjective The history is provided by the patient. No foreign languages department chair was used. HPI Aly Solorio is a [...] have confirmed and edited as necessary, the [facility] Review of Systems Constitutional: Negative for chills [...] for higher level of care were discussed indetail warranting prompt ER evaluation. Sydni Justin APRN.AR documented in this encounterOhio State University [facility]ner [facility] Center10-30-2023 History of Present illness Narrative* Sasha JerryGeospatial Imagery Intelligence AnalystJazmin Lynne - 12/26/2022 2:23 PM EDT [facility] received prescription(s) for Skyrizi from Mariano Cabrera. Benefits investigation was conducted, indicating that a prior authorization is required by patient's insurance plan with [employer]. Encounter will be updated once prior authorization has been submitted by [facility]. Jazmin Baez CPhT [facility] [phone] documented in this encounterOhio State University Wexner Medical Center10-19-2023 History of Present illness Narrative* Adele Dickson APRN.CNP - 12/15/2022 3:58 PM EDT Aly is a 32 year old who [...] First baby was adopted by another family. Knowledge Analyst History LMP: 12/02/2022 (Approximate), Having periods Age at Menarche: Age at First : Age at Menopause: Knowledge Analyst History Comments: Sexual Activity: Not Currently; Male [...] external genitalia normal, normal Bartholin's glands, urethra, [place]'s glands, no vulvar lesions, no cervical lesions, [...] - ICD9: 278.00, V85.34, ICD10: E66.9, Z68.34 Rakel Love APRN.AR Dickson APRN.EMBROIDERY DESIGNER documented in this encounterOhio State University [facility]xner [facility] Center10-18-2023 Miscellaneous Notes* Telephone Encounter - Kathia Gamboa Clair - 12/14/2022 4:27 PM EDT Patient scheduled. start email sent * Telephone Encounter - Nilsa Jackman - 12/14/2022 11:47 AM EDT LM for patient to return call. When patient calls, please schedule START QMO SKYRIZI./AUTH EXP 03/07/23* (1 HR) * Telephone Encounter - Khushbu Sutton LPN - 12/14/2022 11:06 AM EDT Auth approved. Okay to schedule. Khushbu Sutton LPN * Telephone Encounter - Clair Regan - 12/14/2022 10:34 AM EDT Patient called to schedule Skyrizi. Dr. Noriega referring. Please review and advise. documented in this encounterOhio State University [facility] Center10-16-2023 History of Present illness Narrative* Mary Ibrahim LPN - 12/12/2022 2:53 PM EDT Patient presents for Hepatitis B vaccine. Denies any problems at this time. Tolerated injection well. Mary Ibrahim LPN documented in this encounterOhio State University Wexner Medical Center09-29-2023 History of Present illness Narrative* Winnie Richards PA-C - 11/25/2022 6:32 PM EDT Images from the original note were not included. This note was created using [employer]. Subjective Aly Solorio is a 32 year [...] (HCC) 1999 Small bowel obstruction (HCC) 02/06/2022 Current Outpatient [...] Use: current everyday user Substances: Nicotine Devices: Ecoviate tank Substance Use Topics Alcohol use: Not [...] the palmar side of the left hand thirddigit. Likely ganglion cyst. No erythema of the [...] ORTHOPAEDICS Winnie Richards PA-C documented in this encounterOhio State University Wexner [facility] Center09-06-2023 History of Present illness Narrative* Demetrius France MD - 11/02/2022 10:30 AM EDT COLORECTAL SURGERY Post-Op Visit November 02, 2022 [...] non-tender without masses or hernias. Wound is wellhealed. Anorectal: not performed Iron Worker present: Yes Surgical path- FINAL DIAGNOSIS A. [...] expected. Plan Plan: - Will discuss with Karla Noriega and Dr Morton the timing of her follow up colonoscopy with respect to medication change. - OK to liberalize diet and activity with no specific restrictions. - Return to clinic as needed Demetrius France MD documented in this encounterOhio State University Wexner Medical Center08-23-2023 Miscellaneous Notes* Telephone Encounter - Janet Vera RN - 10/19/2022 3:14 PM EDT I was going to message you her glucose is fine I knew she was not fasting. I dont like that her liver numbers are up and want to recheck in 2 weeks. Karla Noriega PA-C Called and spoke to pt and advised her of Cash Noriega's above message. Explained to pt labs orders are in the system and in 2 weeksplease go back and have them completed. Pended orders and sent to Cash Noriega PA-C for review and signature. Pt had no questions at this time. Janet Vera RN October 19, 2022 3:22 PM documented in this encounterOhio State University Wexner Medical Center08-21-2023 Instructions* Patient Instructions* Karla Noriega PA-C - 10/17/2022 5:15 PM EDT Labs and fecal nubia as a baseline Plan to start new therapy in the near future Follow up after 2 infusions documented in this encounterOhio State University [facility] Center08-21-2023 History of Present illness Narrative* Karla Noriega PA-C - 10/17/2022 4:39 PM EDT Follow Up Visit SUBJECTIVE 32 year old [...] population = 50. Five points is a clinicallymeaningful difference.) 02/18/2022 08/15/2022 Physical T-Score 44.9 44.9 [...] with i4 disease with stricture and on 2022 she underwent a laparoscopic redo ileocolic resection with Kono S anastomosis. She presents today as a routine office follow-up postoperatively. Feeling very well still with somefrequency decreased energy going to the bathroom after [...] We will get labs and fecal Nubia asa baseline and then repeat after around 3 months. Would plan for colonoscopy at 6 to 12 months fromstarting Skyrizi depending on symptoms and lab results. Plan to follow-up with me after the first 2infusions unless needed sooner. Physician Global Assessment of Disease Activity: normal PLAN Repeat labs and fecal nubia as baseline Plan to start skyrizi Follow up with me after 2 infusion I spent a total of 20 minutes on the date of the service which included preparing to see the patient, [id number] patient care, completing clinical documentation, obtaining and/or reviewing separately obtained history, performing a medically appropriate examination, counseling and educating the pat ient/family/caregiver, and ordering medications, tests, or procedures. Medical Decision Making: Problems: Low: Stable chronic illness Data: Unique source(s) for external note(s) reviewed: 2 Unique test result(s) reviewed: 2 Unique test(s) ordered: 1 Risk: High: Drug therapy requiring intensive monitoring Medical Decision Making Level: 4 - Moderate Karla Noriega PA-C October 17, 2022 4:39 PM documented in this encounterOhio State University [facility]xner [facility] Center07-19-2023 History and physical note * Demetrius France MD - 09/14/2022 10:30 AM EDT Images from the original note were not included. Chief Complaint: preop- Crohns stricture History of Present Illness: Aly SOLORIO is a 32 year old year old female with a history of Crohns disease diagnosed in 2000and underwent a ileocolic resection in 2004. Here [...] MUCOSAL RESCJ 2004 small and large resection CURRENT MEDICATIONS Current Outpatient Medications Medication Sig Dispense Refill ergocalciferol 50,000 unit capsule (VITAMIN D2, DRISDOL) Take 1 capsule by mouth one time a week. 12 capsule 0 neomycin 500 mg tablet Take 2 tablets by mouth at 9pm and take 2 tablets by mouth at 11pm the nightbefore surgery. 4 tablet 0 metroNIDAZOLE (FLAGYL) 500 [...] every 24 hours. No smoking with patch. 30Patch 0 nicotine (NICODERM) 7 mg/24 hr Apply [...] prior CT. Colonoscopy 08/11/2022 Impression: - Patent [id number]-ic-ujvo ileo-colonic anastomosis, characterized by healthy appearing mucosa. [...] on steroids, a non-smoker, and not having si gnificant malnutrition. Treatment plan: As above will plan [...] of treatment plan: moderate documented in this encounterOhio State University [facility] Medical Center07-19-2023 Miscellaneous Notes* Telephone Encounter - Alycia Terry LPN - 09/14/2022 8:15 AM EDT Received ER visit and EKG. Original sent to [facility] through [employer] scanning. Alycia Terry LPN * Telephone Encounter - Alycia Terry LPN - 09/09/2022 11:28 AM EDT Fax request sent to [facility] requesting ER visit and EKG from this past week. Alycia Terry LPN documented in this encounterOhio State University [facility]ner [facility] Center07-17-2023 History of Present illness Narrative* Winnie Richards PA-C - 09/12/2022 1:43 PM EDT This note was created using TimeBridgeter. Subjective Aly Solorio is a 32 year [...] 2 tablets by mouth at 11pm the nightbefore surgery. 4 tablet 0 metroNIDAZOLE (FLAGYL) 500 [...] Types: Cigarettes Quit date: 2019 Years since quittin.5 Smokeless tobacco: Never Vaping [...] and posterior oropharyngeal erythema present. No oropharyngeal exudateor uvula swelling. Tonsils: No tonsillar exudate or [...] recommend she call her surgeon to let themknow she has strep throat. - The patient should follow up in 3-5 days if symptoms persist or worsen - STREP A MOLECULAR (POC) Winnie Richards PA-C documented in this encounterOhio State University Wexner Medical Center07-17-2023 Miscellaneous Notes* Telephone Encounter - Alvina Hobbs RN - 09/12/2022 1:36 PM EDT Returned pts call, she has strep throat, started treatment today. Does not want to cancel surgery but wanted us to be aware. Alvina Hobbs, RN documented in this encounterOhio State University Wexner Medical Center07-17-2023 Miscellaneous Notes* Telephone Encounter - Maia Nieto - 09/12/2022 1:05 PM EDT The patient has pre-op questions and would like a call right away. Please call [phone] documented in this encounterOhio State University [facility]xner Medical Center07-17-2023 History of Present illness Narrative* Karla Nroiega PA-C - 09/12/2022 10:52 AM EDT Follow Up Visit SUBJECTIVE 32 year old female with Crohn's disease here for follow-up. Last seen 08/17/2022. Changes and test results since last visit: Continues to be on Adalimumab. Continues to feel bloated 1-2 BMs daily still feels blocked. Able toeat not feeling very hungry. Was on steroids but now finished has gained weight. Has gotten severalupper respiratory infections. CBC: WBC (k/uL) Date Value [...] population = 50. Five points is a clinicallymeaningful difference.) 02/18/2022 08/15/2022 Physical T-Score 44.9 44.9 [...] 2 tablets by mouth at 11pm the nightbefore surgery. 4 tablet 0 metroNIDAZOLE (FLAGYL) 500 [...] getting upper respiratory infections while on Humira. Idiscussed plan for surgery later this week as [...] which included preparing to see the patient, imex-sq-gapq patient care, completing clinical documentation, obtaining and/or reviewing separately obtained history, performing a medically appropriate examination, counseling and educating the pat ient/family/caregiver, and ordering medications, tests, or procedures. Karla Noriega PA-C September 12, 2022 10:53 AM documented in this encounterOhio State University Wexner [facility] Center07-14-2023 Telephone encounter Note * Telephone Encounter - Sonya Medeiros APRN.[facility] - 09/09/2022 10:18 AM EDT Would you like pt to complete a bowel prep prior to upcoming surgery 09/16/2022? And would you like her to continue the Humira prior to surgery or hold? [facility]07-14-2023 Miscellaneous Notes* Telephone Encounter - Sonya Medeiros APRN.CNP - 09/09/2022 10:18 AM EDT Would you like pt to complete a bowel prep prior to upcoming surgery 09/16/2022? And would you like her to continue the Humira prior to surgery or hold? documented in this encounterOhio State University [facility] Center07-12-2023 Miscellaneous Notes* Telephone Encounter - Lonnie Garibay - 09/07/2022 10:39 AM EDT Aly Solorio is having car trouble today and will not make her preop appointments. Asking if some of them could be virtually and/or some locally closer to home. [phone] documented in this encounterOhio State University Wexner Medical Center07-07-2023 Miscellaneous Notes* Telephone Encounter - Alvina Hobbs RN - 09/02/2022 11:49 AM EDT spoke to pt informed her we do not give surgery times, but I will speak to Dr France upon his return for an estimate. Thanked nurse for call. Alvina Hobbs, RN documented in this encounterOhio State University [facility]xner Medical Center07-03-2023 Miscellaneous Notes* Telephone Encounter - Janet Vera RN - 08/29/2022 3:57 PM EDT Patient called and stated she is vomiting at least twice a day, managing very little intake, bloated, with increasing right sided stomach pain and major fatigue Spoke to Cash Noriega PA-C who stated to have pt come to [facility] ED today. Called pt back and gave her Cash Noriega's recommendationto come to the ED today. Pt verbalized understanding and stated she will make child psychiatrist arrangement and drive in to [facility] ED today. Janet Vera RN August 29, 2022 4:20 PM documented in this encounterOhio State University [facility]xner Medical Center06-28-2023 History of Present illness Narrative* Mary Beth Zuniga, RT(R) - 08/24/2022 3:20 PM EDT Radiology Service Progress Note DATE OF SERVICE: [...] creatinine assay has traceable calibration to isotope dilution- mass spectrometry. Refer to KDIGO guidelines for clinical interpretation. In patients with unstable renal function, e.g. those with acute kidney injury, the eGFRmay not accurately reflect actual GFR. eGFR- Date [...] 2022 TIME: 3:36 PM documented in this [facility]06-28-2023 Miscellaneous Notes* Telephone Encounter - Lonnie Garibay - 08/24/2022 1:56 PM EDT Aly Solorio returned call. Moving surgery to 09/13 is fine with her. [phone] documented in this [facility]06-28-2023 Miscellaneous Notes* Telephone Encounter - Alvina Hobbs RN - 08/24/2022 10:23 AM EDT left message for call back to discuss moving surgery to 09/13. Alvina Hobbs RN documented in this [facility]06-27-2023 Miscellaneous Notes* Telephone Encounter - Janet Vera RN - 08/23/2022 9:54 AM EDT Called pt and left a VM message for pt to return this nurse's call. Office number left. Janet Vera RN August 23, 2022 9:55 AM documented in this [facility]06-[facility] Miscellaneous Notes* Telephone Encounter - Alvina Hobbs RN - 08/19/2022 3:47 PM EDT spoke to pt, confirmed surgery date of september 16 routing 09/07. Alvina Hobbs RN documented in this encounterOhio State University [facility]xner [facility] Center06-21-2023 History of Present illness Narrative* Karla Noriega PA-C - 08/17/2022 10:39 AM EDT Virtual Follow Up Visit Provider Location: [facility] Patient Location: Patient Home or Place of Residence SUBJECTIVE Aly SOLORIO [id number] 1990 has requested a video telemedicine for [...] COVID-19 original vaccine, age 12+ yr, monovalent (PFIZER-[employer] - PURPLE TOP) 10/21/2020 11/16/2020 Haemophilus influenzae [...] every 24 hours. No smoking with patch. 30Patch 0 nicotine (NICODERM) 7 mg/24 hr Apply [...] No history of dysuria, frequency or incontinence DEPOT MANAGER: Negative for abnormal vaginal bleeding, abnormal vaginal discharge MUSCULOSKELETAL: Negative for joint pain or swelling, back pain or muscle pain NEUROLOGIC:Negative for focal numbness or weakness, headaches and dizziness or syncope. SKIN:Negative for lesions, rash, and itching PSYCHIATRIC: Negative for sleep disturbance, mood disorder and recent psychosocial stressors. HEMATOLOGIC/LYMPHATIC/IMMUNOLOGIC:Negative for prolonged bleeding, bruising easily or swollen [...] Last Endoscopy: Colonoscopy 08/11/2022 Impression: - Patent lwgd-am-effs ileo-colonic anastomosis, characterized by healthy appearing mucosa. [...] colonoscopy revealed pretty severe disease with stenosis. Idiscussed that she likely needs surgical intervention in [...] with more than 50% of the total kbju-os-eupx time of the visit in counseling / [...] licensure. The patient's identity and physical location wereverified at the time of this visit. Either the patient or their legal technical account representative has been informed of the risks and benefits of -- and alternatives to -- treatment through a remote evaluation andconsents to proceed with the evaluation remotely. Karla Noriega PA-C August 17, 2022 10:39 AM documented in this encounterOhio State University [facility] Center06-16-2023 Miscellaneous Notes* Telephone Encounter - Alycia Araujo - 08/12/2022 9:39 AM EDTSummary: schedule follow up visit after colonoscopy Images from the original note were not included. Received: Yesterday MD Karla Paredes PA-C; Alycia Fierro. I need you to see this patient of [facility] soon. Scoped her today and she has tight ileal strictures. She needs CTE or MRE and a Cors eval. Thanks Nicholas Left voicemail asking patient to return call to scheduling [phone], option 0 to schedule follow up. Also sent [employer] message. Alycia Araujo documented in this encounterOhio State University [facility]xner [facility] Center06-02-2023 Miscellaneous Notes* Telephone Encounter - Janet Vera RN - 07/29/2022 9:38 AM EDT Received fax from [facility] requesting prescription information regarding pt's Humira. Form reviewed and signed by Dr. Morton. Form faxed back to [facility] at [phone]. Janet Vera RN July 29, 2022 9:39 AM documented in this encounterOhio State University Wexner [facility] Center05-03-2023 History of Present illness Narrative* Mary Ibrahim LPN - 06/29/2022 8:57 AM EDT Patient presents for Hepatitis B vaccine. Denies any problems at this time. Tolerated injection well. Mary Ibrahim LPN documented in this [facility]04-17-2023 Miscellaneous Notes* Telephone Encounter - Cory Parkinson PA-C - 06/13/2022 2:07 PM EDT Telephone on 06/13/22 HEP B VACCINE, 3-DOSE, AGE 20+ YR (ENGERIX-B, RECOMBIVAX HB) HEP B VACCINE, 3-DOSE, AGE 20+ YR (ENGERIX-B, RECOMBIVAX HB) Thanks, Glen Parkinson PA-C * Telephone Encounter - Mary Ibrahim LPN - 06/13/2022 11:55 AM EDT Patient scheduled for nurse visit 06/29/22 to receive Hepatitis B vaccine. Please place order at thistime. Mary Ibrahim LPN documented in this encounterOhio State University [facility] Center04-14-2023 History of Present illness Narrative* Mary Ibrahim LPN - 06/10/2022 9:40 AM EDT Patient presents for PPD read only. Denies any problems at this time. Mary Ibraihm LPN documented in this encounterOhio State University [facility] Center04-12-2023 History of Present illness Narrative* Alycia Guerra RDMS - 06/08/2022 10:00 AM EDT Radiology Service Progress Note PATIENT NAME: [...] 08, 2022 11:43 AM documented in this encounterOhio State University [facility] Center04-12-2023 History of Present illness Narrative* Mray Ibrahim LPN - 06/08/2022 8:35 AM EDT Patient presents for PPD administration. Denies any problems at this time. Tolerated injection well. Mary Ibrahim LPN documented in this [facility]04-07-2023 Miscellaneous Notes* Telephone Encounter - Cory Parkinson PA-C - 06/03/2022 11:25 AM EDT Telephone on 06/03/22 PPD (TB INTRADERMAL [id number]) B/O Glen Parkinson PA-C * Telephone Encounter - Mary Ibrahim LPN - 06/03/2022 10:09 AM EDT Patient scheduled for nurse visit 06/08/22 to receive PPD. Please place order at this time. Mary Ibrahim LPN documented in this encounterOhio State University [facility]04-05-2023 History of Present illness Narrative* Mary Ibrahim LPN - 06/01/2022 4:01 PM EDT Patient presents for PPD read only. Denies any problems at this time. Mary Ibrahim LPN documented in this encounterOhio State University [facility] Center04-03-2023 Instructions* Patient Instructions* Cory Parkinson PA-C - 05/30/2022 3:10 PM [...] Meningococcal vaccine if dorm-living documented in this encounterOhio State University [facility] Center04-03-2023 History of Present illness Narrative* Cory Parkinson PA-C - 05/30/2022 2:20 PM EDT 31 year old female with c/o general physical Adjustment disorder with anxiety (primary encounter diagnosis) Current medications: Venlafaxine ER 75mg daily Doing well. Vaping nicotine dependence, non-tobacco product Current medications: Nicoderm 21mg patch daily and tapering over 3 months. Smoking 1 cigarette a day Sbo (small bowel obstruction) (hcc) Chrohn's disease, age 9 Colon resection age 132005 Recovered from recent hospitalizaiton Current medications: Humira 40mg [id number] Stools have regulated twice a day, mostly [...] Use: current everyday user Substances: Nicotine Devices: Ecoviate tank Substance Use Topics Alcohol use: Not [...] every 24 hours. No smoking with patch. 30Patch 0 nicotine (NICODERM) 7 mg/24 hr Apply [...] vision, glaucoma, cataracts. Near sighted with astigmatism glasses/contacts.Last eye exam: about 1 year. EENT: denies [...] history of GERD, PUD, jaundice/hepatitis, GB disease, diver ticulosis, colorectal cancer, hernias. Kidney/Bladder: Denies frequency, burning. Hx UTI x 3. No STDs Nocturia: not usually, incontinence none. No history of kidney stones, recurrent UTI or kidney infection. Females: Menses of Depo Provera last July, period occurring about every other month with normal flow. no hx of ovarian cysts, no pelvic infection, no tubal , 1/3 pap with ASCUS which clearednext check. Skin: denies unusual rashes. No history [...] muscles aches, joint pain, or swelling. Denies recurrentsprain or disruption of joints, debilitating arthritis, gout, [...] (ENGERIX-B, RECOMBIVAX HB) - PPD (TB INTRADERMAL 99036) B/O 6. Screening for lipid disorders - [...] diet of 1000 mg/day for under 50, 1200- 1500 mg/day for 50+ - Discussed need and benefit for weight loss. BMI 32.75 kg/(m^2) - Smoking cessation encouraged; discussed risks to health and quitting strategies. Patient is usingpatches - Depression screening tool completed and reviewed with patient. Based on score and interview, patient is already diagnosed with depression and recommended continuing current plan of care. - Patient was counseled [id number] by myself (the billing provider) for the [...] reviewed withkarson Parkinson PA-C documented in this encounterOhio [facility] History of Present illness Narrative* Cory Parkinson PA-C - 04/22/2022 3:00 PM EST 31 year old female with c/o medication [...] right hemicolectomy at age 14 transferred from [facility] with abdominal pain and vomiting which started on 02/03/2022. CT was concerning for small bowel obstruction. She was admitted and treated with NG tube for gastric decompression withresolution. Since then: Doing fine with bowels. 2-3 [...] Use: current everyday user Substances: Nicotine Devices: Ancestry Substance Use Topics Alcohol use: Not Currently [...] time. Cory Parkinson PA-C documented in this encounterOhio State University [facility]02-23-2023 Miscellaneous Notes* Telephone Encounter - Cory Parkinson PA-C - 04/21/2022 12:47 PM EST Sent in 1 month ThanksGlen PA-C * Telephone Encounter - Ford Brower LPN - 04/21/2022 9:15 AM EST Patient sent a refill request that was forwarded to you. documented in this encounterOhio State University [facility]02-23-2023 Miscellaneous Notes* Telephone Encounter - Ford Brower LPN - 04/21/2022 8:31 AM EST Patient has been identified by name and date of : Yes Requested Prescriptions Pending Prescriptions Disp Refills venlafaxine ER (EFFEXOR XR) 75 mg 24 hr capsule 30 capsule 2 Sig: Take 1 capsule by mouth once daily. RX INSTRUCTIONS: See her message regarding message appointments. Scheduled 04/22/22 Ford Brower LPN documented in this encounterOhio State University [facility]02-21-2023 Miscellaneous Notes* Telephone Encounter - Janet Vera RN - 04/19/2022 2:48 PM EST Received fax from [employer] for pt's Humira 40mg/0,8ml every 2 weeks. Completed online form and sent to insurance with office visit notes/labs. Await response. ([place]: [email or web address]). Janet Vera RN April 19, 2022 2:49 PM documented in this encounterOhio State University [facility]12-23-2022 Instructions* Patient Instructions* Tad Morton MD - 02/18/2022 11:37 AM [...] If you do not have a responsible dedicated intermodal truck driver (family member or friend) withyou to take you home, your exam cannot be done with sedation and will be cancelled. Please bring a list of all of your current medications, including any Rrud-apm-Dtsprrc medications with you. Medications If you take insulin, diabetic medications or blood thinners such as Coumadin (warfarin), Plavix (clopidogrel), Ticlid (ticlopidine hydrochloride), Agrylin (anagrelide), Xarelto (Rivaroxaban), Pradaxa(Dabigatran), Eliquis (Apixaban), and Effient (Prasugrel). You MUST [...] every 15 minutes for a total of 2glasses. You may continue to drink clear liquids up to (three) 3 hours before your exam. 2 01/2019 documented in this encounterOhio State University [facility]12-23-2022 History of Present illness Narrative* Tad Morton MD - 02/18/2022 11:26 AM EST Virtual visit, 20 minutes, patient agreed 30 [...] balloon dilation of the anastomosis and assessment ofthe degree of inflammation of the mucosa. Tad Morton MD documented in this encounterOhio State University [facility]12-17-2022 History of Present illness Narrative* Liudmila Romero RN - 02/12/2022 11:59 AM EST TCM Home Visit Referral Source of Stratification: [facility] Hospital Admission Status: Discharged Readmission Risk Score: 13 CARROL Score: 1 Patient meets program referral criteria: No Patient does not qualify for High Risk TCM Home Visit program due to: Discharged home, does not meet program criteria TRANSITIONAL CARE MANAGEMENT (TCM) COMMUNITY MONITORING PROGRAM Provider Action/FYI: TCM Initial Hospital Discharge [facility] on 02-10-22, 2nd Attempt. PCP Dr Pope [...] Dept Phone 02/18/2022 11:30 AM TAD MORTON Bldg [phone] 03/07/2022 11:00 AM [facility] [phone] SUMMARY: Pt discharged from [facility] on 02/10/22. Admitted for: SBO Contact made with patient: Yes Hi my name is Liudmila Romero RN and I am calling from the [facility] on behalf of your PCP,Roque Pope MD I understand you were recently [...] like to speak with a social work swat team member to help give you support for any [...] provider to ensure you have safely transitioned home.If you are agreeable, I will send your request to a attendant coin operated laundry who will contact and assist you with that appointment. This will give you an opportunity to ask any questions or address any concerns youmay have with your PCP. Inform the patient [...] unless instructed to do so. For any non- emergency symptoms, call your Doctor s office to get instructions on how to manage (we might recommend a telephone or virtualvisit). For emergency symptoms, proceed to Emergency Department as usual but inform them of cough and fever symptoms FLORIDALMA if present (or call on the way if possible). Liudmila Romero RN Casting Finisher * Liudmila Romero RN - 02/12/2022 9:53 AM EST * Liudmila Romero RN - 02/11/2022 3:11 PM EST TCM Home Visit Referral Source of Stratification: [facility] Hospital Admission Status: Discharged Readmission Risk [...] sched for 03/07/21 SUMMARY: Pt discharged from [facility] main on 02/10/22. Admitted for: [...] next outreach attempt will be on next day Outreach ended documented in this encounterOhio State University [facility]12-11-2022 History of Past illness Narrative* Problem Noted Date Resolved Date SBO (small bowel obstruction) 02/06/2022 documented as of this encounter (statuses as of 02/12/2022) [facility] History of Past illness Narrative* Problem Noted Date Resolved Date SBO (small bowel obstruction) 02/06/2022 documented as of this encounter (statuses as of 02/20/2022) [facility] History of Past illness Narrative* Problem Noted Date Resolved Date SBO (small bowel obstruction) 02/06/2022 documented as of this encounter (statuses as of 04/19/2022) [facility] History of Past illness Narrative* Problem Noted Date Resolved Date SBO (small bowel obstruction) 02/06/2022 documented as of this encounter (statuses as of 04/21/2022) [facility] History of Past illness Narrative* Problem Noted Date Resolved Date SBO (small bowel obstruction) 02/06/2022 documented as of this encounter (statuses as of 04/21/2022) [facility] History of Present illness Narrative* Randy Bojorquez APRN.EMBROIDERY DESIGNER - 01/03/2022 5:24 PM EST Images from [...] Use: current everyday user Substances: Nicotine Devices: Ecoviate tank Substance Use Topics Alcohol use: Not [...] MG TABLET Agrees to plan Randy Bojorquez APRN.EMBROIDERY DESIGNER documented in this encounterOhio State University [facility]09-01-2022 Miscellaneous Notes* Telephone Encounter - [...] advise, Nilsa Mckeon RN documented in this encounterOhio State University [facility] Center08-29-2022 Instructions* Patient Instructions* Cory Parkinson PA-C - 10/25/2021 4:28 PM EDT Venlafaxine (Patient Education - Adult Medication) You must carefully read the Consumer Information Use and Disclaimer below in order to understand and correctly use this information Pronunciation (brady la FAX een) Brand Names: USEffexor XR [...] techniquesbecome yet another stressor. documented in this encounterOhio State University [facility]08-29-2022 History of Present illness Narrative* [...] age of [age]. Single mom Works at [employer] FAMILY HISTORY Adopted: Yes Problem Relation Age [...] Use: current everyday user Substances: Nicotine Devices: Ancestry Substance Use Topics Alcohol use: Not Currently [...] well-appearing slightly overweight adult woman here with pgg-jsdv-xic son who is quite delightful, in no [...] HR Cory Parkinson PA-C documented in this encounterOhio State University [facility]06-01-2022 Miscellaneous Notes* Telephone Encounter - Janet Vera RN - 07/28/2021 9:36 AM EDT Pending Prescriptions Disp Refills HUMIRA PEN 40 MG/0.8 ML SUBCUTANEOUS KIT 2 Each Sig: Inject 40 mg (0.8 ML) under the skin every 2 weeks (continuation of therapy) YING: Yes Last Visit: 2019 Last Lab: 2019 Janet Vera RN July 28, 2021 9:39 AM documented in this encounterOhio State University [facility] Center05-26-2022 Miscellaneous Notes* Telephone Encounter - Janet Vera RN - 07/22/2021 8:57 AM EDT Received fax from [facility] stating they have approved pt's Humira 40mg/0.8ml. Approved from 08/22/2021-08/22/2022. Auth #: [id number]. Called and left patient a VM message stating her approval. [facility] [facility] information in Contact At Once!hart. Janet Vera RN July 22, 2021 9:02 AM documented in this encounterOhio State University [facility]10-15-2020 History of Present illness Narrative* Sabrina Ibrahim Tech (Tech) - 12/12/2019 5:40 PM EDT Radiology Service [...] 12, 2019 5:45 PM [facility] Diagnosis Adjustment disorder with anxiety- Primary documented [facility]* Diagnosis Neck pain- Primary Cervicalgia documented in this encounter [facility]* Diagnosis Onset Date Resolution Status SBO (small bowel obstruction) acute [facility] Work Phone: Evaluation note* Diagnosis Crohn's disease of both small and large intestine with intestinal obstruction (HCC)- Primary Regional enteritis of small intestine with large intestine documented in this [facility]* Diagnosis Adjustment disorder with anxiety documented in this [facility]* Diagnosis Adjustment disorder with anxiety- Primary Vaping nicotine dependence, non-tobacco product SBO (small bowel obstruction) (HCC) Unspecified intestinal obstruction documented in this [facility]* Diagnosis Adjustment disorder with anxiety- Primary [...] health care facility documented [facility] this encounter [facility]* Diagnosis Screening-pulmonary TB- Primary Screening examination for pulmonary tuberculosis [facility] Screening-pulmonary TB- Primary Screening examination for pulmonary tuberculosis [facility] Diagnosis Screening-pulmonary TB- Primary Screening examination for pulmonary tuberculosis [facility] Diagnosis Screening-pulmonary TB- Primary Screening examination for pulmonary tuberculosis [facility] Diagnosis Need for vaccination- Primary Need for prophylactic vaccination and inoculation against unspecified single disease [facility] encounter [facility] Diagnosis Need for vaccination- Primary Need for prophylactic vaccination and inoculation against unspecified single disease [facility]WPark[facility]: Evaluation [facility]* Diagnosis Crohn's disease of small and large intestines with complication (HCC)- Primary [facility] Diagnosis Crohn's disease of both small and large intestine with complication (HCC)- Primary Regional enteritis of small intestine with large intestine Crohn's disease of both small and large intestine with complication (HCC) Regional enteritis of small intestine with large intestine [facility] Diagnosis Crohn's disease of small and large intestines with complication (HCC)- Primary Crohn's disease of both small and large intestine with complication (HCC) Regional enteritis of small intestine with large intestine [facility]* Diagnosis Strep pharyngitis- Primary Streptococcal sore throat Crohn's disease of both small and large intestine with complication (HCC) Regional enteritis of small intestine with large intestine [facility] Diagnosis Crohn's disease of both [...] contraceptive method [facility] Diagnosis Crohn's disease of both small and large intestine with complication (HCC)- Primary Regional enteritis of small intestine with large intestine [facility] Diagnosis Crohn's disease of both small and large intestine with complication (HCC) Regional enteritis of small intestine with large intestine documented in [facility]* Diagnosis Obesity, unspecified classification, unspecified obesity type, unspecified whether serious comorbidity present- Primary documented in this [facility]* Diagnosis Encounter for management and injection of depo-Provera- Primary Surveillance of other previously prescribed contraceptive method documented in this [facility]* Diagnosis Crohn's disease of both small and large intestine with complication (HCC)- Primary Regional enteritis of small intestine with large intestine documented [facility]* Diagnosis Crohn's disease of both small and large intestine with complication (HCC)- Primary Regional enteritis of small intestine with large intestine [facility]* Diagnosis Crohn's disease of both small and large intestine with complication (HCC)- Primary Regional enteritis of small intestine with large intestine documented [facility]* Diagnosis Pre-operative examination- Primary Preoperative [...] prescribed contraceptive method [facility] Diagnosis Pre-operative examination- Primary Preoperative examination, [...] with large intestine [facility]* Diagnosis Pre-operative examination- Primary [...] Primary Routine general medical examination at a [facility] Small bowel obstruction (HCC) Unspecified [...] serious comorbidity present [facility] this [facility]* Diagnosis Pre-operative examination- Primary [...] and subcutaneous tissue [facility] this [facility]* Diagnosis Chronic pain of both knees Acute pain of both knees documented [facility] this [facility]* Diagnosis Pre-operative examination- Primary [...] with large intestine documented [facility]* Diagnosis Pre-operative examination- Primary Preoperative [...] with large intestine documented in this [facility]* Diagnosis Pre-operative examination- Primary Preoperative [...] with large intestine documented in [facility]* Diagnosis Pre-operative examination- Primary Preoperative [...] prescribed contraceptive method [facility] this [facility] Diagnosis Pre-operative examination- Primary [...] Anxiety state, unspecified documented [facility] this [facility]* Diagnosis Pre-operative examination- Primary [...] with large intestine [facility]* Diagnosis Pre-operative examination- Primary [...] with large intestine documented in [facility]* Diagnosis Pre-operative examination- Primary Preoperative [...] with large intestine documented in this [facility]* Diagnosis Pre-operative examination- Primary Preoperative [...] Screening for depression documented in this [facility]* Diagnosis Pre-operative examination- Primary Preoperative [...] of other contraceptive documented [facility]* Diagnosis Pre-operative examination- Primary Preoperative [...] prescribed contraceptive method [facility] Diagnosis Pre-operative examination- Primary [...] with large intestine documented in this encounter [facility] Discharge instructions Additional Instructions Thank you for trusting us with your care today! Please take Tylenol (2 pills, 650 mg), ibuprofen (2 pills, 400 mg) every 6 hours as needed for pain and fever control. Please take prednisone as prescribed. Please return to the emergency department if your symptoms change or worsen. Please follow with your gastroenterology for further outpatient evaluation and management.[facility]: [facility] Outpatient Procedure (Routine) - Pending Review Specialty Diagnoses / Procedures Referred By Opal t Referred To Contact [facility] [employer] Diagnoses Crohn's disease of both small and large intestine with intestinal obstruction (HCC) Procedures COLONOSCOPY SCREENING COLONOSCOPY FLX DX W/COLLJ SPEC WHEN PFRMD Tad Morton MD [address] [place] [address] [facility] [place] [address] [place] [id number] Referral ID Status Reason Start Date Expiration Date Visits Requested Visits Authorized [id number] Pending Review Auto-Generat ed Referral 2 02/18/2023 1 1 [facility] for referral (narrative)* Diagnostic Procedure Only (Routine) - Authorized Specialty Diagnoses / Procedures Referred By Opal bledsoe Referred To Contact US IMAGING Diagnoses Thyromegaly Procedures US THYROID/PARATHYROID US SOFT TISSUE HEAD & NECK REAL TIME IMGE Cory Layton PA-C [address] [place] [address] Us Imaging Referral ID Status Reason Start Date Expiration Date Visits Requested Visits Authorized [id number] Authorized Auto-Generat ed Referral 05/30/2022 06/29/2023 1 1 [facility] Diagnostic Procedure Only (Routine) - Closed Specialty Diagnoses / Procedures Referred By Opal bledsoe Referred To Contact US IMAGING Diagnoses Thyromegaly Procedures US THYROID/PARATHYROID US SOFT TISSUE HEAD & NECK REAL TIME IMGE Cory Layton PA-C [address] [place] [address] [place] [address] Referral ID Status Reason Start Date Expiration Date V isits Requested Visits Authorized [id number] Closed Auto-Generate d Referral 05/30/2022 06/29/2023 1 1 [facility] Summary Purpose Family History No Family History Records FoundNo Family History Records FoundNo Family History Records FoundNo Family History Records FoundNo Family History Records FoundNo Family History Records FoundNo Family History Records FoundNo Family History Records FoundNo Family History Records FoundNo Family History Records Found Advance Directives Advance Directive Response Recorded Date/ Time Living Will No February 04 6:27pm Power of Caser No February 04, 2022 6:27pm Advance Directive Response Recorded Date/ Time Living Will No February 05 7:39pm Power of Caser No February 05, 2022 7:39pm Advance Directive Response Recorded Date/ Time Living Will No July 12, 2022 1 1:57am Power of Caser No July 12, 2022 11:57am Advance Directive Response Recorded Date/ Time Living Will No August 29, 2022 7 :10pm Power of Caser No August 29, 2022 7:10pm Advance Directive Response Recorded Date/ Time Living Will No September 05, 2022 6:13pm Power of Caser No September 05 6:13pm Advance Directive Response Recorded Date/ Time Living Will No May 19, 2023 11:31pm Power of Caser No May 18 11:31pm Advance Directive Response Recorded Date/ Time Do you have a Healthcare Power of Caser? No August 09, 2024 9:31pm Chief Complaint and Reason for Visit Chief Complaint SBO ABDOMINAL PAIN Reason for Visit SBO (small bowel obs truction) Chief Complaint SBO ABDOMINAL PAIN SBO Reason for Visit SBO (small bowel obs truction) Chief Complaint DIZZINESS Chief Complaint DIZZINESS ABD PAIN foot injury ABD PAIN Chief Complaint DIZZINESS ABD PAIN foot injury ABD PAIN BACK Chief Complaint BACK Chief Complaint Admit Date BITE August 09, 2024 9:14 pm Medications Administered Section Administered Medications Medication Order [facility] Action Action Dose Rate Site tuberculin skin test (TST-PPD), purified protein derivative, intradermal Intradermal Given 05/30/2022 15:20 EDT 0.1 mL Left Lowe r Forearm Administered Medications Medication Order MAR Action Action Dose Rate Site tuberculin skin test (TST-PPD), purified protein derivative, intradermal Intradermal Given 06/08/2022 08:33 EDT 0.1 mL Right ar m Inactive Administered Medications - up to 3 most recent administrations Medication Order MAR Action Dose Rate Site risankizumab-rzaa 600 mg in D5W 100 mL (SKYRIZI) 600 mg, INTRAVENOUS, Administer over 60 Minutes, ONCE, 1 dose, On Mon12/26/22 at 1400, exp immediate use (room temp) Refrigerate. Protect From Light. Allow to warm to room temperature prior to start of infusion. New Bag/Syringe/Bottle 12/26/2022 2:16 PM EDT 600 mg Inactive Administered Medications - up to 3 most recent administrations Medication Order MAR Action Dose Rate Site risankizumab-rzaa 600 mg in [...] (HCC) Procedures CONSULT TO COLO-RECTAL SURGERY OFFICE/OUTPATIENT [facility] 60-74 MINUTES Karla Noriega PA-C [address] [place] [address] Referral ID Status Reason Start Date Expiration Date Visits Requested Visits Authorized [id number] Authorized PCP Requested Referral 08/17/2022 08/17/2023 1 1 Specialty Diagnoses / Procedures Referred By Opal bledsoe Referred To Contact CT IMAGING Diagnoses Crohn's disease of small and large intestines with complication (HCC) Procedures CT ENTEROGRAPHY W IVCON CT ABD & PELVIS W/CONTRAST Karla Noriega PA-C [address] [place] [address] Ct Imaging Referral ID Status Reason Start Date Expiration Date Visits Requested Visits Authorized [id number] Additional Clinical Info Needed Auto-Generat ed Referral 08/17/2022 09/16/2023 1 1 Specialty Diagnoses / Procedures Referred By Opal bledsoe Referred To Contact Diagnoses Crohn's disease of both small and large intestine with complication (HCC) Procedures REFER TO PACC - PRE ANESTHESIA CONSULTATION CLINIC OFFICE/OUTPATIENT [facility] 60-74 MINUTES Demetrius France MD [address] [place] [address] Referral ID Status Reason Start Date Expiration Date Visits Requested Visits Authorized [id number] Authorized PCP Requested Referral 08/25/2022 08/25/2023 1 1 Specialty Diagnoses / Procedures Referred By Opal bledsoe Referred To [facility] Diagnoses Crohn's disease of both small and large intestine with complication (HCC) Procedures ECG COMPLETE ECG ROUTINE ECG W/LEAST 12 LDS W/I&R Demetrius France MD [address] [place] [address] [facility] [place] [address] [place] [address] Referral ID Status Reason Start Date Expiration Date Visits Requested Visits Authorized [id number] Pending Review Auto-Generat ed Referral 08/25/2022 08/25/2023 1 1 Specialty Diagnoses / Procedures Referred By Contac t Referred To Contact Orthopedics Diagnoses Ganglion cyst Procedures CONSULT TO ORTHOPAEDICS OFFICE/OUTPATIENT [facility] 60-74 MINUTES Winnie Richards PA-C [address] [place] [address] Referral ID Status Reason Start Date Expiration Date Visits Requested Visits Authorized [id number] Authorized PCP Requested Referral 11/25/2022 11/25/2023 1 1 Specialty Diagnoses / Procedures Referred By Contac t Referred To Contact CT IMAGING Diagnoses Crohn's disease of small and large intestines with complication (HCC) Procedures CT ENTEROGRAPHY W IVCON CT ABD & PELVIS W/CONTRAST Karla Noriega PA-C [address] [place] [address] [facility] [place] [address] Referral ID Status Reason Start Date Expiration Date V isits Requested Visits Authorized [id number] Closed Auto-Generat ed Referral Patient Cleared - Admin/Chairm an/Director advise to proceed or did not respond 08/18/2022 10/17/2022 1 1 Specialty Diagnoses / Procedures Referred By Contac t Referred To Contact Diagnoses Anxiety Procedures CONSULT TO PRIMARY CARE BEHAVIORAL [facility]ALTH ADULT OFFICE/OUTPATIENT [facility] 60 MINUTES Roque Pope MD [address] [place] [address] Referral ID Status Reason Start Date Expiration Date Visits Requested Visits Authorized [id number] Pending Review PCP Requested Referral 10/31/2023 01/29/2024 1 1 Additional Source Comments INFORMATION SOURCE (unrecogn ized section and content) DATE CREATED AUTHOR 08/16/[address] [facility] DATE CREATED AUTHOR AUTHOR'S ORGANIZ ATION 08/22/2017 [facility] ([place]) DATE CREATED AUTHOR AUTHOR'S ORGANIZ ATION 08/22/2017 [facility] [place] [place] DATE CREATED AUTHOR AUTHOR'S ORGANIZ ATION 08/23/2017 [facility] DATE CREATED AUTHOR AUTHOR'S ORGANIZ ATION 12/31/2017 [employer] DATE CREATED AUTHOR AUTHOR'S ORGANIZ ATION 03/26/2018 [facility] DATE CREATED AUTHOR AUTHOR'S ORGANIZ ATION 04/04/2018 [facility] DATE CREATED AUTHOR AUTHOR'S ORGANIZ ATION 04/28/2022 [facility] DATE CREATED AUTHOR AUTHOR'S ORGANIZ ATION 08/19/2024 [facility] DATE CREATED AUTHOR AUTHOR'S ORGANIZ ATION 09/09/2024 [facility] Source Comments (unrecognize d section and content) In the event this informatio n is protected by the Federal Confidentiality of Alcohol and Drug Abuse Patient Records regulations: The Federal rules restrict any use of the information to criminally investigate or prosecute any alcohol or drug abuse patient.[facility] Center[facility] the event this information is protected by the Federal Confidentiality of Alcohol and Drug Abuse Patient Records regulations: The Federal rules restrict any use of the information to criminally investigate or prosecute any alcohol or drug abuse patient.[facility] CenterIn the event this information is protected by the Federal Confidentiality of Alcohol and Drug Abuse Patient Records regulations: The Federal rules restrict any use of the information to criminally investigate or prosecute any alcohol or drug abuse patient.[facility] CenterIn the event this information is protected by the Federal Confidentiality of Alcohol and Drug Abuse Patient Records regulations: The Federal rules restrict any use of the information to criminally investigate or prosecute any alcohol or drug abuse patient.[facility] CenterIn the event this information is protected by the Federal Confidentiality of Alcohol and Drug Abuse Patient Records regulations: The Federal rules restrict any use of the information to criminally investigate or prosecute any alcohol or drug abuse patient.[facility] CenterIn the event this information is protected by the Federal Confidentiality of Alcohol and Drug Abuse Patient Records regulations: The Federal rules restrict any use of the information to criminally investigate or prosecute any alcohol or drug abuse patient.[facility] CenterIn the event this information is protected by the Federal Confidentiality of Alcohol and Drug Abuse Patient Records regulations: The Federal rules restrict any use of the information to criminally investigate or prosecute any alcohol or drug abuse patient.[facility] CenterIn the event this information is protected by the Federal Confidentiality of Alcohol and Drug Abuse Patient Records regulations: The Federal rules restrict any use of the information to criminally investigate or prosecute any alcohol or drug abuse patient.[facility] CenterIn the event this information is protected by the Federal Confidentiality of Alcohol and Drug Abuse Patient Records regulations: The Federal rules restrict any use of the information to criminally investigate or prosecute any alcohol or drug abuse patient.[facility] CenterIn the event this information is protected by the Federal Confidentiality of Alcohol and Drug Abuse Patient Records regulations: The Federal rules restrict any use of the information to criminally investigate or prosecute any alcohol or drug abuse patient.[facility] CenterIn the event this information is protected by the Federal Confidentiality of Alcohol and Drug Abuse Patient Records regulations: The Federal rules restrict any use of the information to criminally investigate or prosecute any alcohol or drug abuse patient.[facility] CenterIn the event this information is protected by the Federal Confidentiality of Alcohol and Drug Abuse Patient Records regulations: The Federal rules restrict any use of the information to criminally investigate or prosecute any alcohol or drug abuse patient.[facility] CenterIn the event this information is protected by the Federal Confidentiality of Alcohol and Drug Abuse Patient Records regulations: The Federal rules restrict any use of the information to criminally investigate or prosecute any alcohol or drug abuse patient.[facility] CenterIn the event this information is protected by the Federal Confidentiality of Alcohol and Drug Abuse Patient Records regulations: The Federal rules restrict any use of the information to criminally investigate or prosecute any alcohol or drug abuse patient.[facility] CenterIn the event this information is protected by the Federal Confidentiality of Alcohol and Drug Abuse Patient Records regulations: The Federal rules restrict any use of the information to criminally investigate or prosecute any alcohol or drug abuse patient.[facility] CenterIn the event this information is protected by the Federal Confidentiality of Alcohol and Drug Abuse Patient Records regulations: The Federal rules restrict any use of the information to criminally investigate or prosecute any alcohol or drug abuse patient.[facility] CenterIn the event this information is protected by the Federal Confidentiality of Alcohol and Drug Abuse Patient Records regulations: The Federal rules restrict any use of the information to criminally investigate or prosecute any alcohol or drug abuse patient.[facility] CenterIn the event this information is protected by the Federal Confidentiality of Alcohol and Drug Abuse Patient Records regulations: The Federal rules restrict any use of the information to criminally investigate or prosecute any alcohol or drug abuse patient.[facility] CenterIn the event this information is protected by the Federal Confidentiality of Alcohol and Drug Abuse Patient Records regulations: The Federal rules restrict any use of the information to criminally investigate or prosecute any alcohol or drug abuse patient.[facility] CenterIn the event this information is protected by the Federal Confidentiality of Alcohol and Drug Abuse Patient Records regulations: The Federal rules restrict any use of the information to criminally investigate or prosecute any alcohol or drug abuse patient.[facility] CenterIn the event this information is protected by the Federal Confidentiality of Alcohol and Drug Abuse Patient Records regulations: The Federal rules restrict any use of the information to criminally investigate or prosecute any alcohol or drug abuse patient.[facility] CenterIn the event this information is protected by the Federal Confidentiality of Alcohol and Drug Abuse Patient Records regulations: The Federal rules restrict any use of the information to criminally investigate or prosecute any alcohol or drug abuse patient.[facility] CenterIn the event this information is protected by the Federal Confidentiality of Alcohol and Drug Abuse Patient Records regulations: The Federal rules restrict any use of the information to criminally investigate or prosecute any alcohol or drug abuse patient.[facility] CenterIn the event this information is protected by the Federal Confidentiality of Alcohol and Drug Abuse Patient Records regulations: The Federal rules restrict any use of the information to criminally investigate or prosecute any alcohol or drug abuse patient.[facility] CenterIn the event this information is protected by the Federal Confidentiality of Alcohol and Drug Abuse Patient Records regulations: The Federal rules restrict any use of the information to criminally investigate or prosecute any alcohol or drug abuse patient.[facility] CenterIn the event this information is protected by the Federal Confidentiality of Alcohol and Drug Abuse Patient Records regulations: The Federal rules restrict any use of the information to criminally investigate or prosecute any alcohol or drug abuse patient.[facility] CenterIn the event this information is protected by the Federal Confidentiality of Alcohol and Drug Abuse Patient Records regulations: The Federal rules restrict any use of the information to criminally investigate or prosecute any alcohol or drug abuse patient.[facility] CenterIn the event this information is protected by the Federal Confidentiality of Alcohol and Drug Abuse Patient Records regulations: The Federal rules restrict any use of the information to criminally investigate or prosecute any alcohol or drug abuse patient.[facility] CenterIn the event this information is protected by the Federal Confidentiality of Alcohol and Drug Abuse Patient Records regulations: The Federal rules restrict any use of the information to criminally investigate or prosecute any alcohol or drug abuse patient.[facility] CenterIn the event this information is protected by the Federal Confidentiality of Alcohol and Drug Abuse Patient Records regulations: The Federal rules restrict any use of the information to criminally investigate or prosecute any alcohol or drug abuse patient.[facility] CenterIn the event this information is protected by the Federal Confidentiality of Alcohol and Drug Abuse Patient Records regulations: The Federal rules restrict any use of the information to criminally investigate or prosecute any alcohol or drug abuse patient.[facility] CenterIn the event this information is protected by the Federal Confidentiality of Alcohol and Drug Abuse Patient Records regulations: The Federal rules restrict any use of the information to criminally investigate or prosecute any alcohol or drug abuse patient.[facility] CenterIn the event this information is protected by the Federal Confidentiality of Alcohol and Drug Abuse Patient Records regulations: The Federal rules restrict any use of the information to criminally investigate or prosecute any alcohol or drug abuse patient.[facility] CenterIn the event this information is protected by the Federal Confidentiality of Alcohol and Drug Abuse Patient Records regulations: The Federal rules restrict any use of the information to criminally investigate or prosecute any alcohol or drug abuse patient.[facility] CenterIn the event this information is protected by the Federal Confidentiality of Alcohol and Drug Abuse Patient Records regulations: The Federal rules restrict any use of the information to criminally investigate or prosecute any alcohol or drug abuse patient.[facility] CenterIn the event this information is protected by the Federal Confidentiality of Alcohol and Drug Abuse Patient Records regulations: The Federal rules restrict any use of the information to criminally investigate or prosecute any alcohol or drug abuse patient.[facility] CenterIn the event this information is protected by the Federal Confidentiality of Alcohol and Drug Abuse Patient Records regulations: The Federal rules restrict any use of the information to criminally investigate or prosecute any alcohol or drug abuse patient.[facility] CenterIn the event this information is protected by the Federal Confidentiality of Alcohol and Drug Abuse Patient Records regulations: The Federal rules restrict any use of the information to criminally investigate or prosecute any alcohol or drug abuse patient.[facility] CenterIn the event this information is protected by the Federal Confidentiality of Alcohol and Drug Abuse Patient Records regulations: The Federal rules restrict any use of the information to criminally investigate or prosecute any alcohol or drug abuse patient.[facility] CenterIn the event this information is protected by the Federal Confidentiality of Alcohol and Drug Abuse Patient Records regulations: The Federal rules restrict any use of the information to criminally investigate or prosecute any alcohol or drug abuse patient.[facility] CenterIn the event this information is protected by the Federal Confidentiality of Alcohol and Drug Abuse Patient Records regulations: The Federal rules restrict any use of the information to criminally investigate or prosecute any alcohol or drug abuse patient.[facility] CenterIn the event this information is protected by the Federal Confidentiality of Alcohol and Drug Abuse Patient Records regulations: The Federal rules restrict any use of the information to criminally investigate or prosecute any alcohol or drug abuse patient.[facility] CenterIn the event this information is protected by the Federal Confidentiality of Alcohol and Drug Abuse Patient Records regulations: The Federal rules restrict any use of the information to criminally investigate or prosecute any alcohol or drug abuse patient.[facility] CenterIn the event this information is protected by the Federal Confidentiality of Alcohol and Drug Abuse Patient Records regulations: The Federal rules restrict any use of the information to criminally investigate or prosecute any alcohol or drug abuse patient.[facility] CenterIn the event this information is protected by the Federal Confidentiality of Alcohol and Drug Abuse Patient Records regulations: The Federal rules restrict any use of the information to criminally investigate or prosecute any alcohol or drug abuse patient.[facility] CenterIn the event this information is protected by the Federal Confidentiality of Alcohol and Drug Abuse Patient Records regulations: The Federal rules restrict any use of the information to criminally investigate or prosecute any alcohol or drug abuse patient.[facility] CenterIn the event this information is protected by the Federal Confidentiality of Alcohol and Drug Abuse Patient Records regulations: The Federal rules restrict any use of the information to criminally investigate or prosecute any alcohol or drug abuse patient.[facility] CenterIn the event this information is protected by the Federal Confidentiality of Alcohol and Drug Abuse Patient Records regulations: The Federal rules restrict any use of the information to criminally investigate or prosecute any alcohol or drug abuse patient.[facility] CenterIn the event this information is protected by the Federal Confidentiality of Alcohol and Drug Abuse Patient Records regulations: The Federal rules restrict any use of the information to criminally investigate or prosecute any alcohol or drug abuse patient.[facility] CenterIn the event this information is protected by the Federal Confidentiality of Alcohol and Drug Abuse Patient Records regulations: The Federal rules restrict any use of the information to criminally investigate or prosecute any alcohol or drug abuse patient.[facility] CenterIn the event this information is protected by the Federal Confidentiality of Alcohol and Drug Abuse Patient Records regulations: The Federal rules restrict any use of the information to criminally investigate or prosecute any alcohol or drug abuse patient.[facility] CenterIn the event this information is protected by the Federal Confidentiality of Alcohol and Drug Abuse Patient Records regulations: The Federal rules restrict any use of the information to criminally investigate or prosecute any alcohol or drug abuse patient.[facility] CenterIn the event this information is protected by the Federal Confidentiality of Alcohol and Drug Abuse Patient Records regulations: The Federal rules restrict any use of the information to criminally investigate or prosecute any alcohol or drug abuse patient.[facility] CenterIn the event this information is protected by the Federal Confidentiality of Alcohol and Drug Abuse Patient Records regulations: The Federal rules restrict any use of the information to criminally investigate or prosecute any alcohol or drug abuse patient.[facility] CenterIn the event this information is protected by the Federal Confidentiality of Alcohol and Drug Abuse Patient Records regulations: The Federal rules restrict any use of the information to criminally investigate or prosecute any alcohol or drug abuse patient.[facility] CenterIn the event this information is protected by the Federal Confidentiality of Alcohol and Drug Abuse Patient Records regulations: The Federal rules restrict any use of the information to criminally investigate or prosecute any alcohol or drug abuse patient.[facility] CenterIn the event this information is protected by the Federal Confidentiality of Alcohol and Drug Abuse Patient Records regulations: The Federal rules restrict any use of the information to criminally investigate or prosecute any alcohol or drug abuse patient.[facility] CenterIn the event this information is protected by the Federal Confidentiality of Alcohol and Drug Abuse Patient Records regulations: The Federal rules restrict any use of the information to criminally investigate or prosecute any alcohol or drug abuse patient.[facility] CenterIn the event this information is protected by the Federal Confidentiality of Alcohol and Drug Abuse Patient Records regulations: The Federal rules restrict any use of the information to criminally investigate or prosecute any alcohol or drug abuse patient.[facility] CenterIn the event this information is protected by the Federal Confidentiality of Alcohol and Drug Abuse Patient Records regulations: The Federal rules restrict any use of the information to criminally investigate or prosecute any alcohol or drug abuse patient.[facility] CenterIn the event this information is protected by the Federal Confidentiality of Alcohol and Drug Abuse Patient Records regulations: The Federal rules restrict any use of the information to criminally investigate or prosecute any alcohol or drug abuse patient.[facility] CenterIn the event this information is protected by the Federal Confidentiality of Alcohol and Drug Abuse Patient Records regulations: The Federal rules restrict any use of the information to criminally investigate or prosecute any alcohol or drug abuse patient.[facility] CenterIn the event this information is protected by the Federal Confidentiality of Alcohol and Drug Abuse Patient Records regulations: The Federal rules restrict any use of the information to criminally investigate or prosecute any alcohol or drug abuse patient.[facility] CenterIn the event this information is protected by the Federal Confidentiality of Alcohol and Drug Abuse Patient Records regulations: The Federal rules restrict any use of the information to criminally investigate or prosecute any alcohol or drug abuse patient.[facility] CenterIn the event this information is protected by the Federal Confidentiality of Alcohol and Drug Abuse Patient Records regulations: The Federal rules restrict any use of the information to criminally investigate or prosecute any alcohol or drug abuse patient.[facility] CenterIn the event this information is protected by the Federal Confidentiality of Alcohol and Drug Abuse Patient Records regulations: The Federal rules restrict any use of the information to criminally investigate or prosecute any alcohol or drug abuse patient.[facility] CenterIn the event this information is protected by the Federal Confidentiality of Alcohol and Drug Abuse Patient Records regulations: The Federal rules restrict any use of the information to criminally investigate or prosecute any alcohol or drug abuse patient.[facility] CenterIn the event this information is protected by the Federal Confidentiality of Alcohol and Drug Abuse Patient Records regulations: The Federal rules restrict any use of the information to criminally investigate or prosecute any alcohol or drug abuse patient.[facility] CenterIn the event this information is protected by the Federal Confidentiality of Alcohol and Drug Abuse Patient Records regulations: The Federal rules restrict any use of the information to criminally investigate or prosecute any alcohol or drug abuse patient.[facility] CenterIn the event this information is protected by the Federal Confidentiality of Alcohol and Drug Abuse Patient Records regulations: The Federal rules restrict any use of the information to criminally investigate or prosecute any alcohol or drug abuse patient.[facility] CenterIn the event this information is protected by the Federal Confidentiality of Alcohol and Drug Abuse Patient Records regulations: The Federal rules restrict any use of the information to criminally investigate or prosecute any alcohol or drug abuse patient.[facility] CenterIn the event this information is protected by the Federal Confidentiality of Alcohol and Drug Abuse Patient Records regulations: The Federal rules restrict any use of the information to criminally investigate or prosecute any alcohol or drug abuse patient.[facility] CenterIn the event this information is protected by the Federal Confidentiality of Alcohol and Drug Abuse Patient Records regulations: The Federal rules restrict any use of the information to criminally investigate or prosecute any alcohol or drug abuse patient.[facility] CenterIn the event this information is protected by the Federal Confidentiality of Alcohol and Drug Abuse Patient Records regulations: The Federal rules restrict any use of the information to criminally investigate or prosecute any alcohol or drug abuse patient.[facility] CenterIn the event this information is protected by the Federal Confidentiality of Alcohol and Drug Abuse Patient Records regulations: The Federal rules restrict any use of the information to criminally investigate or prosecute any alcohol or drug abuse patient.[facility] CenterIn the event this information is protected by the Federal Confidentiality of Alcohol and Drug Abuse Patient Records regulations: The Federal rules restrict any use of the information to criminally investigate or prosecute any alcohol or drug abuse patient.[facility] CenterIn the event this information is protected by the Federal Confidentiality of Alcohol and Drug Abuse Patient Records regulations: The Federal rules restrict any use of the information to criminally investigate or prosecute any alcohol or drug abuse patient.[facility] CenterIn the event this information is protected by the Federal Confidentiality of Alcohol and Drug Abuse Patient Records regulations: The Federal rules restrict any use of the information to criminally investigate or prosecute any alcohol or drug abuse patient.[facility] CenterIn the event this information is protected by the Federal Confidentiality of Alcohol and Drug Abuse Patient Records regulations: The Federal rules restrict any use of the information to criminally investigate or prosecute any alcohol or drug abuse patient.[facility] CenterIn the event this information is protected by the Federal Confidentiality of Alcohol and Drug Abuse Patient Records regulations: The Federal rules restrict any use of the information to criminally investigate or prosecute any alcohol or drug abuse patient.[facility] CenterIn the event this information is protected by the Federal Confidentiality of Alcohol and Drug Abuse Patient Records regulations: The Federal rules restrict any use of the information to criminally investigate or prosecute any alcohol or drug abuse patient.[facility] CenterIn the event this information is protected by the Federal Confidentiality of Alcohol and Drug Abuse Patient Records regulations: The Federal rules restrict any use of the information to criminally investigate or prosecute any alcohol or drug abuse patient.[facility] CenterIn the event this information is protected by the Federal Confidentiality of Alcohol and Drug Abuse Patient Records regulations: The Federal rules restrict any use of the information to criminally investigate or prosecute any alcohol or drug abuse patient.[facility] CenterIn the event this information is protected by the Federal Confidentiality of Alcohol and Drug Abuse Patient Records regulations: The Federal rules restrict any use of the information to criminally investigate or prosecute any alcohol or drug abuse patient.[facility] CenterIn the event this information is protected by the Federal Confidentiality of Alcohol and Drug Abuse Patient Records regulations: The Federal rules restrict any use of the information to criminally investigate or prosecute any alcohol or drug abuse patient.[facility] CenterIn the event this information is protected by the Federal Confidentiality of Alcohol and Drug Abuse Patient Records regulations: The Federal rules restrict any use of the information to criminally investigate or prosecute any alcohol or drug abuse patient.[facility] CenterIn the event this information is protected by the Federal Confidentiality of Alcohol and Drug Abuse Patient Records regulations: The Federal rules restrict any use of the information to criminally investigate or prosecute any alcohol or drug abuse patient.[facility] CenterIn the event this information is protected by the Federal Confidentiality of Alcohol and Drug Abuse Patient Records regulations: The Federal rules restrict any use of the information to criminally investigate or prosecute any alcohol or drug abuse patient.[facility] CenterIn the event this information is protected by the Federal Confidentiality of Alcohol and Drug Abuse Patient Records regulations: The Federal rules restrict any use of the information to criminally investigate or prosecute any alcohol or drug abuse patient.[facility] CenterIn the event this information is protected by the Federal Confidentiality of Alcohol and Drug Abuse Patient Records regulations: The Federal rules restrict any use of the information to criminally investigate or prosecute any alcohol or drug abuse patient.[facility] CenterIn the event this information is protected by the Federal Confidentiality of Alcohol and Drug Abuse Patient Records regulations: The Federal rules restrict any use of the information to criminally investigate or prosecute any alcohol or drug abuse patient.[facility] CenterIn the event this information is protected by the Federal Confidentiality of Alcohol and Drug Abuse Patient Records regulations: The Federal rules restrict any use of the information to criminally investigate or prosecute any alcohol or drug abuse patient.[facility] CenterIn the event this information is protected by the Federal Confidentiality of Alcohol and Drug Abuse Patient Records regulations: The Federal rules restrict any use of the information to criminally investigate or prosecute any alcohol or drug abuse patient.[facility] CenterIn the event this information is protected by the Federal Confidentiality of Alcohol and Drug Abuse Patient Records regulations: The Federal rules restrict any use of the information to criminally investigate or prosecute any alcohol or drug abuse patient.[facility] CenterIn the event this information is protected by the Federal Confidentiality of Alcohol and Drug Abuse Patient Records regulations: The Federal rules restrict any use of the information to criminally investigate or prosecute any alcohol or drug abuse patient.[facility] Reason for Visit (unrecogniz ed section and content) Reason Onset Date Comments Depo Provera Injection 10/17/2023 Specialty Diagnoses / Procedures Referred By Opal t Referred To Contact Sewage Plant Attendant / PENCILLER Diagnoses Depo Procedures INJECTION Roque Pope MD [address] [place] [address] Wstr, Nurse Sewage Plant Attendant [facility] [address] [place] [address] Referral ID Status Reason Start Date Expiration Date Visits Re quested Visits Authorized [id number] Closed 07/25/2023 10/23/2023 1 1 Reason Comments Medication Authorization Reason Comments Refill Request Reason Comments Anxiety Reason Comments Patient Question Reason Comments Neck Pain left side x 2 days Reason Onset Date Comments Transition Of Care 02/11/2022 Initial tcm o utreach d/c [facility] on 02/10/22, 2nd Attempt. Reason Comments Crohns Reason Comments Ldr Rn - Other Reason Onset Date Comments Refill [...] Treatment Referral 12/26/2022 [employer] Insurance Authorization 12/26/2022 PA Submi ssion Pending Reason Comments Non-Chemotherapy Treatment Specialty Diagnoses / Procedures Referred By Opal bledsoe Referred To Contact Diagnoses Crohn's disease of both small and large intestine with complication (HCC) Procedures INJECTION, RISANKIZUMAB-RZAA, INTRAVENOUS, 1 MG Karla Noriega PA-C [address] [place] [address] Addy [facility] Wstr [address] [place] [address] Referral ID Status Reason Start Date Expiration Date V isits Requested Visits Authorized [id number] Authorized 12/07/2022 03/07/2023 [address] Specialty Diagnoses / Procedures Referred By Contac t Referred To Contact CT IMAGING Diagnoses Crohn's disease of small and large intestines with complication (HCC) Procedures CT ENTEROGRAPHY W IVCON CT ABD & PELVIS W/CONTRAST Karla Noriega PA-C [address] [place] [address] [place] [address] Referral ID Status Reason Start Date Expiration Date V isits Requested Visits Authorized [id number] Closed Auto-Generat ed Referral Patient Cleared - Admin/Chairm an/Director advise to proceed or did not respond 08/18/2022 10/17/2022 1 1 Reason Comments Radiology US Specialty Diagnoses / Procedures Referred By Contac t Referred To Contact US IMAGING Diagnoses Thyromegaly Procedures US THYROID/PARATHYROID US SOFT TISSUE HEAD & NECK REAL TIME IMGE Cory Layton PA-C [address] [place] [address] [place] [id number] Referral ID Status Reason Start Date Expiration Date V isits Requested Visits Authorized [id number] Closed Auto-Generate d Referral 05/30/2022 06/29/2023 1 1 Reason Comments Appointment Orders Reason Comments right shoulder pain X 6 days-started aft er moving furniture Reason Onset Date Comments Depo Provera Injection 04/26/2023 Reason Onset Date Comments SPP Inflammatory Conditions - Medication Refill 05/03/2023 [employer]rizi Reason Onset Date Comments Weight Management 06/27/2023 Reason Onset Date Comments SPP Inflammatory Conditions - Medication Refill 06/30/2023 Skyrizi Reason Comments Pre-op Bowel Prep? Reason Onset [...] 24 [employer] Insurance Authorization 02/15/2024 JENNYFER love Submitted (New Insurance) Reason Onset Date Comments [...] Forms EMS Start State Christine ege program Reason Comments Patient Update Patient Question Reason Comments Medication Authorization [employer]- AP PROVED through 08/22/2025 Reason Comments Medication Problem Reason Comments Forms Care Teams (unrecognized sec tion and content) Harvest Worker Field Crop Relationship Specialty Start Date End Date Roque Pope MD [address] [place] [address] PCP - General Family Practice 07/19/18 Harvest Worker Field Crop Relationship Specialty Start Date End Date Roque Pope MD [address] [place], [place] [address] PCP - General Family Practice 07/19/18 Harvest Worker Field Crop Relationship Specialty Start Date End Date Roque Pope MD [address] [place], [place] [id number] PCP - General Family Practice 07/19/18 Harvest Worker Field Crop Relationship Specialty Start Date End Date Roque Pope MD [address] [place], [place] [id number] PCP - General Family Medicine 07/19/18 Harvest Worker Field Crop Relationship Specialty Start Date End Date Roque Pope MD [address] [place] [address] PCP - General Family Medicine 07/19/18 Harvest Worker Field Crop Relationship Specialty Start Date End Date Roque Pope MD [address] [place] [address] PCP - General Family Medicine 07/19/18 Harvest Worker Field Crop Relationship Specialty Start Date End Date Roque Pope MD [address] [place] [address] PCP - General Family Medicine 07/19/18 Harvest Worker Field Crop Relationship Specialty Start Date End Date Roque Pope MD [address] [place] [address] PCP - General Family Medicine 07/19/18 Harvest Worker Field Crop Relationship Specialty Start Date End Date Roque Pope MD [address] [place] [address] PCP - General Family Medicine 07/19/18 Harvest Worker Field Crop Relationship Specialty Start Date End Date Roque Pope MD [address] [place] [address] PCP - General Family Medicine 07/19/18 Harvest Worker Field Crop Relationship Specialty Start Date End Date Roque Pope MD [address] [place] [address] PCP - General Family Medicine 07/19/18 Harvest Worker Field Crop Relationship Specialty Start Date End Date Roque Pope MD [address] [place] [address] PCP - General Family Medicine 07/19/18 Harvest Worker Field Crop Relationship Specialty Start Date End Date Roque Pope MD [address] [place] [address] PCP - General Family Medicine 07/19/18 Harvest Worker Field Crop Relationship Specialty Start Date End Date Roque Pope MD [address] [place] [address] PCP - General Family Medicine 07/19/18 Harvest Worker Field Crop Relationship Specialty Start Date End Date Roque Pope MD [address] [place] [address] PCP - General Family Medicine 07/19/18 Team Status: Active Member Role Status Dates No Primary Care Physician Family Provider Active Dr. Roque Pope MD Primary Care Provider Active Team Status: Inactive Member Role Status Dates Dr. Roque Pope MD Primary Care Provider Active Dr. Henrietta Samayoa MD Emergency Provider Active Harvest Worker Field Crop Relationship Specialty Start Date End Date Roque Pope MD [address] [place] [address] PCP - General Family Medicine 07/19/18 Harvest Worker Field Crop Relationship Specialty Start Date End Date Roque Pope MD [address] [place] [address] PCP - General Family Medicine 07/19/18 Harvest Worker Field Crop Relationship Specialty Start Date End Date Roque Pope MD [address] [place] [address] PCP - General Family Medicine 07/19/18 Harvest Worker Field Crop Relationship Specialty Start Date End Date Roque Pope MD [address] [place] [address] PCP - General Family Medicine 07/19/18 Harvest Worker Field Crop Relationship Specialty Start Date End Date Roque Pope MD [address] [place] [address] PCP - General Family Medicine 07/19/18 Team Status: Inactive Member Role Status Dates Dr. Roque Pope MD Primary Care Provider Active Dr. Henrietta Samayoa MD Attending Provider, Emergency Provider Active Team Status: Inactive Member Role Status Dates Dr. Roque Pope MD Primary Care Provider Active Dr. Carmelo Puckett DO Attending Provider, Emergency Provider Active Team Status: Inactive Member Role Status Dates Dr. Roque Pope MD Primary Care Provider Active Dr. Dominick Sebastian DO Emergency Provider Active Harvest Worker Field Crop Relationship Specialty Start Date End Date Roque Pope MD [address] [facility], [place] [address] PCP - General Family Medicine 07/19/18 Harvest Worker Field Crop Relationship Specialty Start Date End Date Roque Pope MD [address] [place] [address] PCP - General Family Medicine 07/19/18 Team Status: Inactive Member Role Status Dates Dr. Roque Pope MD Primary Care Provider Active Dr. Dayo Casillas DO Emergency Provider Active Team Status: Inactive Member Role Status Dates Dr. Roque Pope MD Primary Care Provider Active Dr. Dominick Sebastian DO Attending Provider, Emergency P bean Active Harvest Worker Field Crop Relationship Specialty Start Date End Date Roque Pope MD [address] [place] [address] PCP - General Family Medicine 07/19/18 Harvest Worker Field Crop Relationship Specialty Start Date End Date Roque Pope MD [address] [place] [address] PCP - General Family Medicine 07/19/18 Harvest Worker Field Crop Relationship Specialty Start Date End Date Roque Pope MD [address] [place], [place] [address] PCP - General Family Medicine 07/19/18 Harvest Worker Field Crop Relationship Specialty Start Date End Date Roque Pope MD [address] [place], [place] [address] PCP - General Family Medicine 07/19/18 Harvest Worker Field Crop Relationship Specialty Start Date End Date Roque Pope MD [address] [place] [address] PCP - General Family Medicine 07/19/18 Harvest Worker Field Crop Relationship Specialty Start Date End Date Roque Pope MD [address] [place] [address] PCP - General Family Medicine 07/19/18 Harvest Worker Field Crop Relationship Specialty Start Date End Date Roque Pope MD [address] [place] [address] PCP - General Family Medicine 07/19/18 Harvest Worker Field Crop Relationship Specialty Start Date End Date Roque Pope MD [address] [place] [address] PCP - General Family Medicine 07/19/18 Harvest Worker Field Crop Relationship Specialty Start Date End Date Roque Pope MD [address] [place] [address] PCP - General Family Medicine 07/19/18 Harvest Worker Field Crop Relationship Specialty Start Date End Date Roque Pope MD [address] [place] [address] PCP - General Family Medicine 07/19/18 Harvest Worker Field Crop Relationship Specialty Start Date End Date Roque Pope MD [address] [place], [place] [address] PCP - General Family Medicine 07/19/18 Harvest Worker Field Crop Relationship Specialty Start Date End Date Roque Pope MD [address] [place] [address] PCP - General Family Medicine 07/19/18 Harvest Worker Field Crop Relationship Specialty Start Date End Date Roque Pope MD [address] [place] [address] PCP - General Family Medicine 07/19/18 Harvest Worker Field Crop Relationship Specialty Start Date End Date Roque Pope MD [address] [place] [address] PCP - General Family Medicine 07/19/18 Harvest Worker Field Crop Relationship Specialty Start Date End Date Roque Pope MD [address] [place] [address] PCP - General Family Medicine 07/19/18 Harvest Worker Field Crop Relationship Specialty Start Date End Date Roque Pope MD [address] [place] [address] PCP - General Family Medicine 07/19/18 Team Status: Inactive Member Role Status Dates Dr. Roque Pope MD Primary Care Provider Active Dr. Kirt Styles DO Emergency Provider Active Harvest Worker Field Crop Relationship Specialty Start Date End Date Roque Pope MD [address] [place] [address] PCP - General Family Medicine 07/19/18 Harvest Worker Field Crop Relationship Specialty Start Date End Date Roque Pope MD [address] [facility] [place] [address] PCP - General Family Medicine 07/19/18 Harvest Worker Field Crop Relationship Specialty Start Date End Date Roque Pope MD [address] [place] [address] PCP - General Family Medicine 07/19/18 Harvest Worker Field Crop Relationship Specialty Start Date End Date Roque Pope MD [address] [facility], [place] [address] PCP - General Family Medicine 07/19/18 Harvest Worker Field Crop Relationship Specialty Start Date End Date Roque Pope MD [address] [place] [address] PCP - General Family Medicine 07/19/18 Harvest Worker Field Crop Relationship Specialty Start Date End Date Roque Pope MD [address] [place] [address] PCP - General Family Medicine 07/19/18 Harvest Worker Field Crop Relationship Specialty Start Date End Date Roque Pope MD [address] [place] [address] PCP - General Family Medicine 07/19/18 Octavia Max APRN.EMBROIDERY DESIGNER [address] [place] [address] Filer Repairer Family Medicine 02/05/24 Kandice Harman APRN.EMBROIDERY DESIGNER [address] [place] [address] Filer Repairer Family Medicine 02/05/24 Harvest Worker Field Crop Relationship Specialty Start Date End Date Roque Pope MD [address] [place] [address] PCP - General Family Medicine 07/19/18 Octavia Max APRN.EMBROIDERY DESIGNER [address] [place] [address] Filer Repairer Family Medicine 02/05/24 Kandice Harman APRN.EMBROIDERY DESIGNER [address] [place] [address] Filer Repairer Family Medicine 02/05/24 Harvest Worker Field Crop Relationship Specialty Start Date End Date Roque Pope MD [address] [place] [address] PCP - General Family Medicine 07/19/18 Octavia Max, CUT OFF TENDER GLASS.EMBROIDERY DESIGNER [address] [place] [address] Filer Repairer Family Medicine 02/05/24 Kandice Harman APRN.EMBROIDERY DESIGNER [address] [place] [address] [facility] 02/05/24 Harvest Worker Field Crop Relationship Specialty Start Date End Date Roque Pope MD [address] [place] [address] PCP - General Family Medicine 07/19/18 Octavia Max CUT OFF TENDER GLASS.EMBROIDERY DESIGNER [address] [place] [address] Filer Repairer Family Medicine 02/05/24 Kandice Harman CUT OFF TENDER GLASS.EMBROIDERY DESIGNER [address] [place] [address] Filer Repairer Family Medicine 02/05/24 Harvest Worker Field Crop Relationship Specialty Start Date End Date Roque Pope MD [address] [place] [address] PCP - General Family Medicine 07/19/18 Octavia Max, CUT OFF TENDER GLASS.EMBROIDERY DESIGNER [address] [place] [address] Filer Repairer Family [facility] 02/05/24 Kandice Harman APRN.EMBROIDERY DESIGNER [address] [place] [address] [facility] Harvest Worker Field Crop Relationship Specialty Start Date End Date Roque Pope MD [address] [place] [address] PCP - General Family Medicine 07/19/18 Octavia Max APRN.EMBROIDERY DESIGNER [address] [place] [address] [facility] 02/05/24 Kandice Harman APRN.EMBROIDERY DESIGNER [address] [place] [address] [facility] 02/05/24 Harvest Worker Field Crop Relationship Specialty Start Date End Date Roque Pope MD [address] [place] [address] PCP - General Family Medicine 07/19/18 Octavia Max CUT OFF TENDER GLASS.EMBROIDERY DESIGNER [address] [place] [address] [facility] 02/05/24 Kandice Harman CUT OFF TENDER GLASS.EMBROIDERY DESIGNER [address] [place] [address] [facility] 02/05/24 Harvest Worker Field Crop Relationship Specialty Start Date End Date Roque Pope MD [address] [facility] [place] [address] PCP - General Family Medicine 07/19/18 Octavia Max APRN.EMBROIDERY DESIGNER [address] [place] [address] [facility] 02/05/24 Kandice Harman CUT OFF TENDER GLASS.EMBROIDERY DESIGNER [address] [place] [address] [facility] 02/05/24 Harvest Worker Field Crop Relationship Specialty Start Date End Date Roque Pope MD [address] [place] [address] PCP - General Family Medicine 07/19/18 Octavia Max APRN.EMBROIDERY DESIGNER [address] [place] [address] [facility] 02/05/24 Kandice Harman CUT OFF TENDER GLASS.EMBROIDERY DESIGNER [address] [place] [address] [facility] 02/05/24 Harvest Worker Field Crop Relationship Specialty Start Date End Date Roque Pope MD [address] [place] [address] PCP - General Family Medicine 07/19/18 Octavia Max APRN.EMBROIDERY DESIGNER [address] [place] [address] [facility] 02/05/24 Kandice Harman APRN.EMBROIDERY DESIGNER [address] [place] [address] [facility] 02/05/24 Team Status: Active Member Role Status Dates Dr. Roque Pope MD Primary Care Provider Active Team Status: Inactive Member Role Status Dates Dr. Roque Pope MD Primary Care Provider Active Start: August 09, 2024 End: August 09, 2024 Dr. Massimo Quinonez MD Emergency Provider Active Start: August 09, 2024 End: August 09, 2024 Goals (unrecognized section and content) Goals may be documented in a n alternate sectionGoals may be documented in an alternate sectionGoals may be documented in an alternate sectionGoals may be documented in an alternate sectionGoals may be documented in an alternate sectionGoals may be documented in an alternate section Active Administered Medications - up to 3 [...] BE BASED ON THE PRIMARY CLINICAL RECORDS. [employer] provides no warranty or guarantee of the accuracy or completeness of information in this document.
[2024-09-16 00:12] LABS: Internal QC Validated? YES +Cl - CLEAR BKGD; Pregnancy, Serum, hCG Quali. NEGATIVE Negative; Record Kit Lot#, Serum Preg. 0000962302
[2024-09-16 00:13] LABS: Hematocrit 41.3 % (37-47); Hemoglobin 14.0 g/dL (12.0-15.0); Immature Granulocytes Count 0.070 X10^3/uL (0.0-0.0); Mean Corp Hgb Conc 33.9 g/dL (32-36); Mean Corpuscular Volume 85.3 fL (81-99); Mean Platelet Vol. 8.9 fl (6.2-12.0); NRBC Flagged by Analyzer 0 % (0-5); Platelet Count 329 K/mm3 (150-450); RBC Distribution Width CV 13.2 % (11.6-14.6); RBC Distribution Width SD 41.1 fl (35.1-43.9); Red Blood Count 4.84 M/mm3 (4.2-5.4); White Blood Count 8.8 K/mm3 (4.4-11.0)
[2024-09-16 00:26] LABS: Red Blood Cells-Urine 0-5 SEEN /hpf (0-5); Squamous Epithelial Cells - UA 5-10 SEEN /hpf (5-10)
[2024-09-16 00:49] LABS: Anion Gap 14 (5-15); BUN 9 mg/dL (4-19); BUN/Creat Ratio 10.2 RATIO (10-20); Calcium,Total 9.5 mg/dL (7.6-11.0); Carbon Dioxide 18.6 mmol/L (21.0-32.0); Chloride 107 mmol/L (98-108); Estimated Creatinine Clearance 84.20 ml/min (50-250); Glucose 82 mg/dL (70-99); Potassium 4.4 mmol/L (3.3-5.1)
[2024-09-16 01:16] VITALS: BP 112/64; PULSE 65; RESP 16; O2SAT 98
--- NOTE | 2024-09-16 01:16 | CT_ITS ---
PROCEDURE: ABDOMEN/PELVIS WITHOUT CONT 09/16/2024 REASON FOR EXAM: LEFT FLANK PAIN TECHNIQUE: ABDOMEN/PELVIS WITHOUT CONT Noncontrast technique limits evaluation of the abdominal and pelvic viscera. Coronal and Sagittal reconstruction series were provided. One or more dose reduction techniques were used (e.g., Automated exposure control, adjustment of the mA and/or kV according to patient size, use of iterative reconstruction technique). RADIATION DOSE SUMMARY: CTDlvol: 11 mGy DLP: 501 mGycm COMPARISON: 08/29/2022 FINDINGS: Clear lung bases. Normal heart size. Cholelithiasis. Focal liver, pancreas, spleen, adrenal glands, kidneys. No hydronephrosis or ureteral stone. Normal bladder. Normal uterus and ovaries. No retroperitoneal or pelvic adenopathy. No free air. Nondistended bowel. Status post right hemicolectomy, with ileocolic anastomosis. No acute abdominal wall findings. CT/Abdomen/Pelvis without Cont IMPRESSION: No acute findings Reading [facility]
[2024-09-16 02:34] VITALS: BP 138/72; PULSE 73; RESP 18; TEMP 36.6; O2SAT 100
== END 2024-09-16 02:34 | disposition home or self-care (01) ==
PROVIDERS: Emergency Provider Emergency Medicine; PCP Family Medicine; Visit Provider Emergency Medicine
DX: R10.12 Left upper quadrant pain (principal); K50.90 Crohn's disease, unspecified, without complications; F17.290 Nicotine dependence, other tobacco product, uncomplicated
CPT/HCPCS: 74176; 80048; 81001; 84703; 85025; 96374; 96375; 96376; 99283; A4216; J2405